=== PATIENT | female | born 1950 | race Caucasian/White ===

== ENCOUNTER 2017-10-03 06:33 | Day surgery (SDC) | payer MEDICARE, OTHER ==
[~2017-10-03] VITALS: Ht 139.7 cm; Wt 44.3 kg
[2017-10-03] VITALS (10 sets, daily range): BP systolic 93–132; BP diastolic 36–72
[~2017-10-03 06:33] MED LIST: ALPR1TAB7 PO; ASPI-808 PO; BENZ-13 PO; BUDE90AE2 IH; CEFD300C3 PO; METH4TAB PO; METO50TA2 PO; MORP-33 PO
--- OUTSIDE RECORDS SUMMARY | 2017-10-03 06:37 | XMS REPORT | Continuity of Care Document ---
Author Author [facility] Organization [facility] Address Unknown Phone Unavailable Allergies Active Description Code Type Severity Reaction Onset Reported/Identified Relationship to Patient Clinical Status Yes acetaminophen [id number] Drug Allergy Unknown N/A 01/16/2016 Medications Problems Date Dx Coded Attending Type Code Diagnosis Diagnosed By 01/16/2016 KEVON FIERRO DO Ot F17.210 NICOTINE DEPENDENCE, CIGARETTES, UNCOMPL 01/16/2016 KEVON FIERRO DO Ot J44.0 CHRONIC OBSTRUCTIVE PULMON DISEASE W ACU 01/16/2016 KEVON FIERRO DO Ot R19.7 DIARRHEA, UNSPECIFIED 05/21/2016 BALJINDER THAYER SINDY Ot F17.210 NICOTINE DEPENDENCE, CIGARETTES, UNCOMPL 05/21/2016 GALE DO SINDY Ot I10 ESSENTIAL (PRIMARY) HYPERTENSION 05/21/2016 BALJINDER THAYER SINDY Ot I25.10 ATHSCL HEART DISEASE OF [place] CORONARY 05/21/2016 BALJINDER THAYER SINDY Ot I25.2 OLD MYOCARDIAL INFARCTION 05/21/2016 BALJINDER THAYER SINDY Ot J44.9 CHRONIC OBSTRUCTIVE PULMONARY DISEASE, U 05/21/2016 BALJINDER THAYER SINDY Ot T40.601A POISONING BY UNSP NARCOTICS, ACCIDENTAL, 05/21/2016 BALJINDER THAYER SINDY Ot Z95.5 PRESENCE OF CORONARY ANGIOPLASTY IMPLANT 05/21/2016 BALJINDER THAYER SINDY Ot F17.210 NICOTINE DEPENDENCE, CIGARETTES, UNCOMPL 05/21/2016 GALE DO SINDY Ot I10 ESSENTIAL (PRIMARY) HYPERTENSION 05/21/2016 BALJINDER THAYER SINDY Ot I25.10 ATHSCL HEART DISEASE OF [place] CORONARY 05/21/2016 BALJINDER THAYER SINDY Ot I25.2 OLD MYOCARDIAL INFARCTION 05/21/2016 BALJINDER THAYER SINDY Ot J44.9 CHRONIC OBSTRUCTIVE PULMONARY DISEASE, U 05/21/2016 BALJINDER THAYER SINDY Ot T40.601A POISONING BY UNSP NARCOTICS, ACCIDENTAL, 05/21/2016 SINDY GALE DO Ot Z95.5 PRESENCE OF CORONARY ANGIOPLASTY IMPLANT Procedures Results Encounters ACCT No. Visit Date/Time Discharge Status Pt. Type Provider Facility Loc./Unit Complaint [id number] 09/16/2017 12:24:00 2016 23:59:59 CLS Preadmit Aimee LEWIS MD [facility] CARD I25.10 CAD [id number] 09/16/2017 12:21:00 2016 23:59:59 CLS Preadmit Aimee LEWIS MD [facility] CARD E78.5 HYPERLIPIDEMIA [id number] 05/20/2016 16:02:00 2015 13:25:00 DIS Inpatient SINDY GALE DO [facility] ICU ACUTE NARCOTIC OVERDOSE [id number] 01/16/2016 13:12:00 2015 14:34:00 DIS Emergency KEVON FIERRO DO [facility] ER COUGH DIARRHEA [id number] 10/03/2017 06:33:00 ACT Outpatient Aimee LEWIS MD [facility] CATH SEVERE LIFESTYLE LIMITED CLAUDICATION, ABN SAHRA.
[2017-10-03] MEDS ORDERED: HEParin (CATH LAB) 2,000 ML IV ONE (06:42)
[2017-10-03] MEDS ORDERED: NS IV 1000 ML 1,000 ML IV SCH ×2 (07:00→11:08)
[2017-10-03 07:14] LABS: MEAN PLATELET VOLUME 9.7 FL (7.4-10.4); RED BLOOD COUNT 5.01 10^6/uL (4.35-5.85); RED CELL DISTRIBUTION WIDTH 13.8 % (10.0-14.5); WHITE BLOOD COUNT 8.8 10^3/uL (4.3-11.0)
[2017-10-03 07:25] LABS: INR 0.9 (0.8-1.4); PROTHROMBIN TIME PATIENT 11.9 SEC (12.2-14.7)
[2017-10-03 07:34] LABS: ALANINE AMINOTRANSFERASE 15 U/L (0-55); ALBUMIN 4.1 GM/DL (3.2-4.5); ANION GAP 12 MMOL/L (5-14); ASPARTATE AMINO TRANSFERASE 16 U/L (5-34); BILIRUBIN,TOTAL 0.3 MG/DL (0.1-1.0); BLOOD UREA NITROGEN 8 MG/DL (7-18); BUN/CREATININE RATIO 11; CALCIUM 9.1 MG/DL (8.5-10.1); CARBON DIOXIDE 29 MMOL/L (21-32); CHLORIDE 97 MMOL/L (98-107); CREATININE SERUM 0.74 MG/DL (0.60-1.30); GFR ESTIMATED > 60; GLUCOSE 92 MG/DL (70-105); POTASSIUM 3.6 MMOL/L (3.6-5.0); SODIUM 138 MMOL/L (135-145); TOTAL PROTEIN 7.4 GM/DL (6.4-8.2)
[2017-10-03] MEDS ORDERED: ATOR40TA70 PO (07:36)
[2017-10-03] MEDS ORDERED: PARO-49 PO (07:36)
[2017-10-03] MEDS ORDERED: OMEG1CAP58 PO (07:36)
[2017-10-03] MEDS ORDERED: CHOL10003 PO (07:36)
[2017-10-03] MEDS ORDERED: DIPH1TAB PO (07:36)
[2017-10-03] MEDS ORDERED: CLOP75TA28 PO (07:36)
[2017-10-03] MEDS ORDERED: ALPR1TAB7 PO (07:36)
[2017-10-03] MEDS ORDERED: MORP-33 PO (07:36)
[2017-10-03] MEDS ORDERED: RT-ALBUINH IH (07:36)
[2017-10-03] MEDS ORDERED: GABA600T2 PO (07:36)
[2017-10-03] MEDS ORDERED: LISI-552 PO (07:36)
[2017-10-03] MEDS ORDERED: MULT-1042 PO (07:36)
[2017-10-03] MEDS ORDERED: fentaNYL INJECTION 100 MCG/2 ML AMP ONE (07:54)
[2017-10-03] MEDS ORDERED: MIDAZOLAM 2 MG/2 ML (VERSED) VIAL ONE (07:55)
--- NOTE | 2017-10-03 11:06 | Cardiac Procedure Note-CS/ASA ---
Pre-Procedure Note Pre-Op Procedure Note H&P Reviewed The H&P was reviewed, patient examined and no changes noted. Date H&P Reviewed: Oct 03, 2017 Time H&P Reviewed: 10:00 Conscious Sedation Pre-Proced Time Reviewed: 10:00 ASA Class: 3 Airway Mallampati Classification: ([place] appropriate class) I. II. III, IV Lungs Heart ASA score ASA 1: a normal healthy patient ASA 2: a patient with a mild systemic disease (mid diabetes, controlled hypertension, obesity ASA 3: a patient with a severe systemic disease that limits activity (angina , COPD, prior Myocardial infarction) ASA 4: a patient with an incapacitating disease that is a constant threat to life (CHF, renal failure) ASA 5: a moribund patient not expected to survive 24 hrs. (ruptured aneurysm) ASA 6: a declared brain patient whose organs are being harvested. For emergent operations, add the letter E after the classification Grade 1 Sedation Plan: Analgesia, Amnesia, Plan communicated to team members, Discussed options with patient/fam, Discussed risks with patient/fam Note The patient is an appropriate candidate to undergo the planned procedure, sedation, and anesthesia. The patient immediately re-assessed prior to indication. Aimee LEWIS MD Oct 03, 2017 11:06 am
--- NOTE | 2017-10-03 11:08 | Cardiology Post Procedure Note ---
Post-Procedure Note Physician (s)/Railroad Baggage Porter (s) Physician Aimee LEWIS MD Pre-Procedure Diagnosis Pre-Procedure Diagnosis: severe lifestyle limiting claudication, L>R Post-Procedure Note Procedure Start Date: Oct 03, 2017 Procedure Start Time: 10:00 Name of Procedure: distal abdominal aortogram and bilateral lower extremity runoff Findings/Procedure Note mild to moderate diffuse disease in the distal abdominal aorta and common/ external illiac arteries. No focal severe stenosis in STRADDLE TRUCK OPERATOR, SFA, Popliteal and three vessel run off bilaterally. Anesthesia Type: Conscious Sedation Estimated blood loss (mL): 10 Contrast Amount: 50 Post-Procedure Diagnosis Post-operative diagnosis: mild to moderate PAD. Aimee LEWIS MD Oct 03, 2017 11:08 am
--- NOTE | 2017-10-03 11:11 | Discharge Inst-Post CATH ---
Discharge Inst-CATH Post Cardiac Cath D/C Inst Follow Up/Plan Dr. Brooke in one month CARDIAC CATH DISCHARGE INSTRUCTIONS *Hold Metformin for 48 hours post heart cath. ACTIVITY * Go Home directly and rest. * Limit activity of the leg (or wrist if it was used) for 7 days including aerobics, swimming, jogging, bicycling, etc. * Restrict stair-climbing for 7 days if possible, if not, climb up with your non -cath leg, then bring together on the same step. * Avoid lifting, pushing, pulling or excessive movement of the affected extremity for 7 days. * Customary sexual activity may be resumed after 2 days-use caution not to use a position that strains or causes pain to the affected extremity. * No driving for 24 hours. * NO SMOKING. * Avoid straining for bowel movements for 7 days. * Gentle walking on level ground is allowed. * Returning to work will depend on the type of procedure and the results. Your doctor will discuss this with you. CALL YOUR DOCTOR FOR ANY OF THE FOLLOWING: *If bleeding from the puncture site occurs- Apply gentle pressure to site with clean cloth and call your doctor or EMS. * If a knot or lump forms under the skin, increases in size, or causes pain. * If bruising appears to be worsening or moving further down your leg instead of disappearing. * Temperature above 101 F. CARE OF YOUR GROIN INCISION; * Bruising or purple discoloration of the skin near the puncture site is common. * You may shower only, no bathtub bathing for 5 days. Be careful to avoid slipping as your leg may feel stiff. * If a closure device was used on your femoral artery, please see the attached guide regarding care of the device and your leg. * REMOVE the dressing from your groin the next day after your procedure in the shower. CARE OF YOUR WRIST INCISION; * Bruising or purple discoloration of the skin near the puncture site is common. * You may shower. * DO NOT submerge wrist. * Remove dressing in 24 hours. Aimee BROOKE MD Oct 03, 2017 11:11 am
--- NOTE | 2017-10-03 11:14 | Cardiology Discharge Summary ---
Diagnosis/Chief Complaint Date of Admission 10/03/2017 Date of Discharge 10/03/2017 Admission Diagnosis severe lifestyle limiting claudication Final/Discharge Diagnosis mild to moderate PAD Chief Complaint/HPI Chief Complaint/HPI this is a 67-year-old lady with history of CAD and active smoking. She presents with severe lifestyle limiting claudication which is worse in the left lower extremity. Noninvasive testing was nondiagnostic or borderline. Peripheral angiography was recommended. Discharge Summary Procedures distal abdominal aortogram with bilateral lower extremity runoff which shows mild to moderate distal abdominal aortic disease and mild diffuse disease bilaterally in the common iliac artery and external iliac artery. However there is no focal stenosis. No significant disease in the bilateral BODY BUMPER, SFA, popliteal artery. Three-vessel runoff bilaterally infrapopliteal. Discharge Physical Examination stable Hospital Course Pending Labs Laboratory Tests 10/03/17 07:09: White Blood Count 8.8, Red Blood Count 5.01, Hemoglobin 16.1, Hematocrit 48, Mean Corpuscular Volume 95, Mean Corpuscular Hemoglobin 32, Mean Corpuscular Hemoglobin Concent 34, Red Cell Distribution Width 13.8, Platelet Count 209, Mean Platelet Volume 9.7, Prothrombin Time 11.9, INR Comment 0.9, Activated Partial Thromboplast Time 27, Sodium Level 138, Potassium Level 3.6, Chloride Level 97, Carbon Dioxide Level 29, Anion Gap 12, Blood Urea Nitrogen 8, Creatinine 0.74, Estimat Glomerular Filtration Rate > 60, BUN/Creatinine Ratio 11, Glucose Level 92, Calcium Level 9.1, Total Bilirubin 0.3, Aspartate Amino Transf (AST/SGOT) 16, Alanine Aminotransferase (ALT/SGPT) 15, Alkaline Phosphatase 82, Total Protein 7.4, Albumin 4.1 Discussion & Recommendations Discussion patient will continue aspirin, Plavix, statin, lisinopril, beta lexy for CAD and mild to moderate PAD. She will follow-up in the office in one month. Follow up appt.: Dr. Brooke in one month. Dicharge Diet: Cardiac Diet Activity as Tolerated: Yes Home Medications Reviewed patient Home Medication Reconciliation Form Discharge Home Medications: Reviewed and agree with Discharge Medication list on patient's Discharge Instruction sheet Condition at discharge stable Instructions to patient/family Dr. Brooke in one month Aimee BROOKE MD Oct 03, 2017 11:14 am
[2017-10-03] MEDS ORDERED: PATIENT MAY USE OWN MEDS, ALL PO SCH (11:15)
--- NOTE | 2017-10-03 16:02 | OPERATIVE REPORT ---
DATE OF SERVICE: 10/03/2017 PERIPHERAL ANGIOGRAM PRIMARY PHYSICIAN: Dr. Olsen. PERFORMING PHYSICIAN: Dr. Luis Lewis. INDICATIONS: Severe lifestyle-limiting claudication. PREOPERATIVE DIAGNOSIS: Severe lifestyle-limiting claudication, left lower extremity worse than right lower extremity. POSTOPERATIVE DIAGNOSIS: Mild to moderate peripheral arterial disease. HISTORY: The patient is a 67-year-old lady with history of significant coronary artery disease with numerous PCI in the past. She also has history of active smoking. She presents with significant pain in the left thigh area as well as left lower extremity, which is significantly worse with exertion. Her claudication is significantly incapacitating. She is on optimal medical therapy with aspirin, Plavix, lisinopril, beta-lexy and statin. Noninvasive imaging was either nondiagnostic or borderline abnormal. Peripheral angiography was recommended. PROCEDURE PERFORMED: 1. Selective angiography of the right lower extremity. 2. Distal abdominal aortogram with bilateral lower extremity runoff. COMPLICATIONS: None. SPECIMENS: None. ESTIMATED BLOOD LOSS: 10 mL. ANTICOAGULATION: None. ANESTHESIA: Conscious sedation. CONTRAST: 50 mL of Omnipaque. FLUOROSCOPY TIME: 49 seconds. FLUOROSCOPY DOSE: 22 mGy. PROCEDURE DETAILS: The patient was brought to the laborer marine terminal after informed consent was taken. All the risks and complications were explained in detail. She was draped and prepped in the usual sterile fashion. Access was gained in the right femoral artery with a 6-Serbian sheath. Using the sheath, we performed selective angiogram and runoff of the right lower extremity. We then took a regular pigtail catheter and advanced it on top of a regular J-wire. The tip of the pigtail catheter was placed in the distal abdominal aorta and a distal abdominal aortogram was performed with bilateral lower extremity runoff. ABDOMINAL AORTOGRAM: Mild to moderate diffuse disease in the distal abdominal aorta is noted. There is mild aneurysmal disease noted at the most distal portion of the distal abdominal aorta. RIGHT LOWER EXTREMITY: Mild diffuse disease is noted in the right common iliac artery and the external iliac artery. Mild to moderate disease is noted in the right internal iliac artery. No significant disease is noted in the right common femoral artery, superficial femoral artery, popliteal artery, 3-vessel runoff is noted in the right below the knee on the right lower extremity. There is mild to moderate disease of the ostium of the right anterior tibial artery. There is mild disease in the right tibioperoneal trunk. There is also mild diffuse disease in the right posterior tibial artery. However, there is no focal flow limiting stenosis noted. LEFT LOWER EXTREMITY: There is mild to moderate disease in the left common iliac artery and external iliac artery. No significant disease is noted in the left common femoral artery, superficial femoral artery, popliteal artery. 3-vessel runoff is noted in the left lower extremity below the knee with no focal stenosis. IMPRESSION AND CONCLUSION: 1. Mild to moderate peripheral arterial disease. Continue medical therapy with aspirin, Plavix and statin. 2. Smoking cessation is strongly recommended. 3. Continue clinical followup. Job ID: [id number] DocumentID: [id number] Dictated Date: 10/03/2017 11:45:04 Senior Hr Business Partner Date: 10/03/2017 16:01:19 Dictated By: LUCA LEWIS MD MTDD
== END 2017-10-03 15:00 | disposition home or self-care (01) ==
LOC: CATH 06:33 → SURG 11:15 → CATH 15:00
PROVIDERS: ATTEND Internal Medicine Interventional Cardiology
DX: I70.213 Atherosclerosis of native arteries of extremities with intermittent claudication, bilateral legs (principal); I25.10 Atherosclerotic heart disease of native coronary artery without angina pectoris; I10 Essential (primary) hypertension; E78.5 Hyperlipidemia, unspecified; R06.02 Shortness of breath; F17.290 Nicotine dependence, other tobacco product, uncomplicated; I25.2 Old myocardial infarction; Z95.5 Presence of coronary angioplasty implant and graft; Z79.82 Long term (current) use of aspirin; Z79.899 Other long term (current) drug therapy
CPT/HCPCS: 36415; 75630; 80053; 85027; 85610; 85730; 87081

== ENCOUNTER → 2017-11-13 | Outpatient (CLI) | payer MEDICARE, OTHER ==
[~2017-11-13] MED LIST changes: +ATOR40TA70 PO; +CHOL10003 PO; +CLOP75TA28 PO; +DIPH1TAB PO; +GABA600T2 PO; +LISI-552 PO; +METO50TA15 PO; -METO50TA2 PO; +MULT-1042 PO; +OMEG1CAP58 PO; +PARO-49 PO; +RT-ALBUINH IH
== END ==
LOC: CARD 09:49
PROVIDERS: ATTEND Internal Medicine Interventional Cardiology
DX: I25.10 Atherosclerotic heart disease of native coronary artery without angina pectoris (principal); I10 Essential (primary) hypertension; E78.5 Hyperlipidemia, unspecified; R06.02 Shortness of breath; F17.200 Nicotine dependence, unspecified, uncomplicated
CPT/HCPCS: 93306

== ENCOUNTER → 2017-11-14 | Outpatient (CLI) | payer MEDICARE, OTHER ==
[~2017-11-14] MED LIST changes: +CATHETER FLUSH 10 ML SYR IV PRN; +REGADENOSON 0.4 MG/5 ML SYR (LEXISCAN) IV ONE
[2017-11-14 09:48] VITALS: BP 160/94
--- NOTE | 2017-11-14 21:53 | STRESS TEST ---
DATE OF SERVICE: 11/14/2017 PHARMACOLOGICAL NUCLEAR STRESS TEST REFERRING PHYSICIAN: Dr. Sebastian Olsen. PERFORMING PHYSICIAN: Dr. Luis Lewis. INDICATION: Previous history of CAD and PCI. He presents with shortness of breath. PROCEDURE DETAILS: The patient was brought to the stress lab after informed consent was taken. All the risks and complications were explained in detail. Lexiscan nuclear stress test was performed according to the protocol. 0.4 mg of IV Lexiscan was given. Low grade exercise was done. Resting EKG showed sinus rhythm at heart rate 75 BPM. Maximum heart rate was 94 BPM. Resting blood pressure was 128/99 mmHg. Maximum blood pressure was 160/100 mmHg. There was no chest pain during the procedure. There were no arrhythmias or ST-T wave abnormalities. 10.85 mCi of Myoview were given for rest imaging and 31.3 mCi of Myoview were given for stress imaging. Ejection fraction 48%. TID 1.13. SSS 28, SRS 21, SDS 4. There is a severe large apical fixed defect with reversible defect in the anterior septal area. CONCLUSION: 1. Pharmacological stress test negative for ischemia. 2. Mildly reduced LV systolic function with no wall motion abnormalities. 3. Elevated TID. 4. 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 Thallium viability is recommended. Job ID: [id number] DocumentID: [id number] Dictated Date: 11/14/2017 15:00:35 Window Installation Subcontractor Date: 11/14/2017 17:34:57 Dictated By: LUCA LEWIS MD MTDD
== END ==
LOC: CARD 07:45
PROVIDERS: ATTEND Internal Medicine Interventional Cardiology
DX: I25.10 Atherosclerotic heart disease of native coronary artery without angina pectoris (principal); I73.9 Peripheral vascular disease, unspecified; E78.5 Hyperlipidemia, unspecified; I10 Essential (primary) hypertension; F17.200 Nicotine dependence, unspecified, uncomplicated; R06.02 Shortness of breath
CPT/HCPCS: 78452; 93017

== ENCOUNTER → 2017-11-18 | Outpatient (CLI) | payer MEDICARE ==
[~2017-11-18] MED LIST changes: -REGADENOSON 0.4 MG/5 ML SYR (LEXISCAN) IV ONE
--- NOTE | 2017-11-19 20:50 | STRESS TEST ---
DATE OF SERVICE: 11/18/2017 THALLIUM VIABILITY REPORT PRIMARY PHYSICIAN: Sebastian Olsen MD ATTENDING PHYSICIAN: Trent Lewis MD DIAGNOSES: Coronary artery disease, previous infarct and percutaneous coronary intervention. HISTORY: The patient is a 67-year-old lady with previous history of ID and PCI. Pharmacological nuclear stress test was performed for shortness of breath, which showed evidence of a fixed apical defect suggesting an old infarct as well as mid anterior septal reversible defect suggesting solo-infarct ischemia. Thallium viability study was recommended to look for viability in the apical territory. PROCEDURE DETAILS: A 3.03 mCi of thallium-201 was given for resting scan. The patient was scanned after initial injection of thallium as well as 4 hours later. The patient was brought back 24 hours later and 1.03 mCi of thallium-201 was given and another imaging performed. Review of the imaging in short axis, vertical long axis and horizontal long axis shows no significant thallium uptake at 4 hours or 24 hours. This suggests no significant apical viability. Normal viability in the anterior, inferior, lateral and septal frank. CONCLUSION: 1. No significant viability in the apical wall. 2. Viability is noted in the septum, anterior, inferior and lateral frank. Job ID: [id number] DocumentID: [id number] Dictated Date: 11/19/2017 12:32:06 Lay Midwife Date: 11/19/2017 14:04:22 Dictated By: TRENT LEWIS MD
== END ==
LOC: CARD 08:41
PROVIDERS: ATTEND Internal Medicine Interventional Cardiology
DX: I25.10 Atherosclerotic heart disease of native coronary artery without angina pectoris (principal); R94.39 Abnormal result of other cardiovascular function study; R93.1 Abnormal findings on diagnostic imaging of heart and coronary circulation; I25.2 Old myocardial infarction
CPT/HCPCS: 78452; 93017

== ENCOUNTER → 2017-11-19 | Outpatient (CLI) | payer MEDICARE ==
[~2017-11-19] MED LIST changes: +ACET-2267 PO; +ALBU18HF2 INH; +ASPI325T32 PO; -CATHETER FLUSH 10 ML SYR IV PRN; +LOPE2TAB34 PO; +MULT-1029 PO; +NITR0.4T39 SL; +SIME125T49 PO
== END ==
LOC: CARD 09:07
PROVIDERS: ATTEND Internal Medicine Interventional Cardiology
DX: I25.10 Atherosclerotic heart disease of native coronary artery without angina pectoris (principal); I25.2 Old myocardial infarction; R93.1 Abnormal findings on diagnostic imaging of heart and coronary circulation; R94.39 Abnormal result of other cardiovascular function study

== ENCOUNTER 2017-11-21 09:06 | Day surgery (SDC) | payer MEDICARE ==
[2017-11-21] VITALS (7 sets, daily range): BP systolic 102–136; BP diastolic 57–89
[~2017-11-21] VITALS: Ht 144.8 cm; Wt 44.5 kg
[~2017-11-21 09:06] MED LIST changes: -ACET-2267 PO; -ALBU18HF2 INH; -ASPI325T32 PO; -LOPE2TAB34 PO; -MULT-1029 PO; -NITR0.4T39 SL; -SIME125T49 PO
[2017-11-21] MEDS ORDERED: LIDOCAINE 1% INJ 50 ML (XYLOCAINE) VIAL ONE (09:12)
[2017-11-21] MEDS ORDERED: HEParin (CATH LAB) 2,000 ML IV ONE (09:13)
[2017-11-21] MEDS ORDERED: NS IV 1000 ML 1,000 ML ONE (09:13)
[2017-11-21] MEDS ORDERED: NS IV 1000 ML 1,000 ML IV SCH ×3 (09:30→15:36)
[2017-11-21 10:03] LABS: MEAN PLATELET VOLUME 9.7 FL (7.4-10.4); RED BLOOD COUNT 4.56 10^6/uL (4.35-5.85); WHITE BLOOD COUNT 7.9 10^3/uL (4.3-11.0)
[2017-11-21 10:20] LABS: INR 0.9 (0.8-1.4); PROTHROMBIN TIME PATIENT 12.6 SEC (12.2-14.7)
[2017-11-21 10:31] LABS: ALANINE AMINOTRANSFERASE 14 U/L (0-55); ALBUMIN 3.7 GM/DL (3.2-4.5); ALKALINE PHOSPHATASE 77 U/L (40-136); BILIRUBIN,TOTAL 0.3 MG/DL (0.1-1.0); BUN/CREATININE RATIO 20; CARBON DIOXIDE 29 MMOL/L (21-32); CHLORIDE 102 MMOL/L (98-107); CHOLESTEROL 140 MG/DL (< 200); CREATININE SERUM 0.75 MG/DL (0.60-1.30); GFR ESTIMATED > 60; GLUCOSE 87 MG/DL (70-105); HDL CHOLESTEROL 64 MG/DL (40-60); POTASSIUM 4.4 MMOL/L (3.6-5.0); SODIUM 142 MMOL/L (135-145); TOTAL PROTEIN 6.8 GM/DL (6.4-8.2); TRIGLYCERIDES 53 MG/DL (<150); VLDL CHOLESTEROL 11 MG/DL (5-40)
[2017-11-21] MEDS ORDERED: LOPE2TAB34 PO (10:39)
[2017-11-21] MEDS ORDERED: SIME125T49 PO (10:39)
[2017-11-21] MEDS ORDERED: ALBU18HF2 INH (10:39)
[2017-11-21] MEDS ORDERED: MULT-1029 PO (10:39)
[2017-11-21] MEDS ORDERED: ASPI325T32 PO (10:39)
[2017-11-21] MEDS ORDERED: ACET-2267 PO (10:39)
[2017-11-21] MEDS ORDERED: NITR0.4T39 SL (10:39)
--- NOTE | 2017-11-21 11:33 | Cardiac Procedure Note-CS/ASA ---
Pre-Procedure Note Pre-Op Procedure Note H&P Reviewed The H&P was reviewed, patient examined and no changes noted. Date H&P Reviewed: Nov 21, 2017 Time H&P Reviewed: 11:33 Conscious Sedation Pre-Proced Time Reviewed: 11:33 ASA Class: 3 Airway Mallampati Classification: ([place] appropriate class) I. II. III, IV Lungs Heart ASA score ASA 1: a normal healthy patient ASA 2: a patient with a mild systemic disease (mid diabetes, controlled hypertension, obesity ASA 3: a patient with a severe systemic disease that limits activity (angina , COPD, prior Myocardial infarction) ASA 4: a patient with an incapacitating disease that is a constant threat to life (CHF, renal failure) ASA 5: a moribund patient not expected to survive 24 hrs. (ruptured aneurysm) ASA 6: a declared brain patient whose organs are being harvested. For emergent operations, add the letter E after the classification Grade 1 Sedation Plan: Analgesia, Amnesia, Plan communicated to team members, Discussed options with patient/fam, Discussed risks with patient/fam Note The patient is an appropriate candidate to undergo the planned procedure, sedation, and anesthesia. The patient immediately re-assessed prior to indication. Aimee LEWIS MD Nov 21, 2017 11:33 am
[2017-11-21] MEDS ORDERED: MIDAZOLAM 5 MG/5 ML (VERSED) VIAL ONE (13:09)
[2017-11-21] MEDS ORDERED: fentaNYL INJECTION 100 MCG/2 ML AMP ONE (13:09)
[2017-11-21] MEDS ORDERED: HEParin 1000 UNIT/ML (10ML VIAL) FOR BOLUS ONE (13:10)
[2017-11-21] MEDS ORDERED: NITROGLYCERIN DRIP 25 MG/D5W 250 ML IV ONE (13:11)
[2017-11-21] MEDS ORDERED: VERAPAMIL 5 MG/2 ML (CALAN) VIAL IV ONE (13:11)
[2017-11-21] MEDS ORDERED: ADENOSINE 3 MG/1 ML (ADENOSCAN) 30ML VIAL IV ONE (14:31)
--- NOTE | 2017-11-21 15:36 | Cardiology Post Procedure Note ---
Post-Procedure Note Physician (s)/Marquetry Worker (s) Physician Aimee LEWIS MD Pre-Procedure Diagnosis Pre-Procedure Diagnosis: Shortness of breath, abnormal nuclear stress test Post-Procedure Note Procedure Start Date: Nov 21, 2017 Procedure Start Time: 14:00 Name of Procedure: Coronary angiography, left heart catheterization, FFR to the RCA, unsuccessful PCI attempt of the LAD Findings/Procedure Note moderate diffuse disease in the RCA. Negative FFR. Patent stent in the LAD. A stent in the mid left circumflex artery has diffuse in-stent restenosis. This is followed by moderate to severe diffuse disease. There is another stent in the distal left circumflex artery which is totally occluded with reconstitution in the second OM artery. LV EF around 45-50 percent with apical hypokinesis. LVEDP 20 mmHg. Anesthesia Type: Conscious Sedation Estimated blood loss (mL): 30 Contrast Amount: 187 Post-Procedure Diagnosis Post-operative diagnosis: Totally occluded left circumflex artery stent, unsuccessful PCI. Moderate diffuse disease in the RCA with negative FFR. Aimee LEWIS MD Nov 21, 2017 3:36 pm
[2017-11-21] MEDS ORDERED: PATIENT MAY USE OWN MEDS, ALL PO SCH (15:45)
--- NOTE | 2017-11-21 15:52 | Discharge Inst-Post CATH ---
Discharge Inst-CATH Post Cardiac Cath D/C Inst Follow Up/Plan Dr. Brooke in one to 2 weeks CARDIAC CATH DISCHARGE INSTRUCTIONS *Hold Metformin for 48 hours post heart cath. ACTIVITY * Go Home directly and rest. * Limit activity of the leg (or wrist if it was used) for 7 days including aerobics, swimming, jogging, bicycling, etc. * Restrict stair-climbing for 7 days if possible, if not, climb up with your non -cath leg, then bring together on the same step. * Avoid lifting, pushing, pulling or excessive movement of the affected extremity for 7 days. * Customary sexual activity may be resumed after 2 days-use caution not to use a position that strains or causes pain to the affected extremity. * No driving for 24 hours. * NO SMOKING. * Avoid straining for bowel movements for 7 days. * Gentle walking on level ground is allowed. * Returning to work will depend on the type of procedure and the results. Your doctor will discuss this with you. CALL YOUR DOCTOR FOR ANY OF THE FOLLOWING: *If bleeding from the puncture site occurs- Apply gentle pressure to site with clean cloth and call your doctor or EMS. * If a knot or lump forms under the skin, increases in size, or causes pain. * If bruising appears to be worsening or moving further down your leg instead of disappearing. * Temperature above 101 F. CARE OF YOUR GROIN INCISION; * Bruising or purple discoloration of the skin near the puncture site is common. * You may shower only, no bathtub bathing for 5 days. Be careful to avoid slipping as your leg may feel stiff. * If a closure device was used on your femoral artery, please see the attached guide regarding care of the device and your leg. * REMOVE the dressing from your groin the next day after your procedure in the shower. CARE OF YOUR WRIST INCISION; * Bruising or purple discoloration of the skin near the puncture site is common. * You may shower. * DO NOT submerge wrist. * Remove dressing in 24 hours. Aimee BROOKE MD Nov 21, 2017 3:51 pm
--- NOTE | 2017-11-21 15:56 | Cardiology Discharge Summary ---
Diagnosis/Chief Complaint Date of Admission 11/21/2017 Date of Discharge 11/21/2017 Admission Diagnosis shortness of breath, previous history of CAD, PCI, abnormal nuclear stress test Final/Discharge Diagnosis coronary artery disease, mildly reduce LV systolic function Chief Complaint/HPI Chief Complaint/HPI this is a 67-year-old lady with previous history of myocardial infarction, PCI. She has PCI in the LAD and 2 stents in the left circumflex artery. She presented with shortness of breath. abnormal nuclear stress test. Discharge Summary Procedures coronary angiography showed moderate diffuse disease in the RCA with negative FFR. Patent stent in the LAD with no other significant disease. Occluded stent in the distal left circumflex artery with severe and in-stent restenosis in the mid left circumflex artery stent. Discharge Physical Examination stable Hospital Course unremarkable Pending Labs Laboratory Tests 11/21/17 09:55: White Blood Count 7.9, Red Blood Count 4.56, Hemoglobin 15.0, Hematocrit 45, Mean Corpuscular Volume 98, Mean Corpuscular Hemoglobin 33, Mean Corpuscular Hemoglobin Concent 34, Red Cell Distribution Width 15.0, Platelet Count 277, Mean Platelet Volume 9.7, Prothrombin Time 12.6, INR Comment 0.9, Activated Partial Thromboplast Time 28, Sodium Level 142, Potassium Level 4.4, Chloride Level 102, Carbon Dioxide Level 29, Anion Gap 11, Blood Urea Nitrogen 15, Creatinine 0.75, Estimat Glomerular Filtration Rate > 60, BUN/Creatinine Ratio 20, Glucose Level 87, Calcium Level 9.0, Total Bilirubin 0.3, Aspartate Amino Transf (AST/SGOT) 14, Alanine Aminotransferase (ALT/SGPT) 14, Alkaline Phosphatase 77, Total Protein 6.8, Albumin 3.7, Triglycerides Level 53, Cholesterol Level 140, LDL Cholesterol Direct 56, VLDL Cholesterol 11, HDL Cholesterol 64 Discussion & Recommendations Discussion patient will be discharged on aspirin, Plavix, statin, beta lexy and ESSIE inhibitor. Follow up appt.: With Dr. Brooke in one to 2 weeks Dicharge Diet: Cardiac Diet Activity as Tolerated: Yes Home Medications Reviewed patient Home Medication Reconciliation Form Discharge Home Medications: Reviewed and agree with Discharge Medication list on patient's Discharge Instruction sheet Condition at discharge stable Instructions to patient/family Dr. Brooke in one to 2 weeks Aimee BROOKE MD Nov 21, 2017 3:56 pm
--- NOTE | 2017-11-21 18:32 | CARDIAC CATHETERIZATION ---
DATE OF SERVICE: 11/21/2017 CORONARY ANGIOGRAPHY, FFR AND PCI REPORT INDICATION: Shortness of breath, previous AZ, PCI, abnormal nuclear stress test. PREOPERATIVE DIAGNOSES: 1. Shortness of breath. 2. Abnormal nuclear stress test. 3. Previous history of myocardial infarction and PCI. POSTOPERATIVE DIAGNOSIS: Eqyysrms-cp-mnezrg coronary artery disease. HISTORY: The patient is a 67-year-old lady who has previous history of AZ and PCI in the LAD and left circumflex artery. She presents with shortness of breath. Nuclear stress test was done, which was abnormal. Coronary angiography was recommended. PROCEDURES PERFORMED: 1. Coronary angiography. 2. Left heart catheterization. 3. FFR to the RCA. 4. Unsuccessful PCI to the LAD. COMPLICATIONS: None. SPECIMENS: None. ESTIMATED BLOOD LOSS: 20 mL. ANTICOAGULATION: IV heparin. ANESTHESIA: Conscious sedation. CONTRAST: A 237 mL of Omnipaque. FLUOROSCOPY DOSE: 386 mGy. FLUOROSCOPY TIME: PROCEDURE DETAILS: The patient was brought to the dairy lab technician after informed consent was taken. All the risks and complications were explained in detail. She was draped and prepped in the usual sterile fashion. Access was gained in the right radial artery with a 5-Luxembourger sheath. Coronary angiography and left heart catheterization was performed with a 5-Luxembourger Dash catheter. FINDINGS: 1. Left main: Mild ostial disease. 2. LAD: Mild diffuse disease with a patent stent in the proximal/mid LAD. The LAD is a transapical vessel. 3. Left circumflex artery: There is a first obtuse marginal artery, which is patent. Just after the first obtuse marginal artery in the mid left circumflex artery, there is a stent, which has severe in-stent restenosis. Just distal to the first stent, there is another stent, which is occluded. Distal reconstitution is noted of a second obtuse marginal artery via left to left collaterals. 4. RCA: Moderate diffuse disease in the proximal and mid RCA. In the mid RCA, there is a stenotic segment of 50%. 5. Left heart catheterization: LV pressure 81/10 mmHg. LVEDP 20 mmHg. Aortic pressure 87/54 mmHg. Preserved LV function with an EF of around 45% to 50%. Apical hypokinesis is noted. There is no gradient across the aortic valve. RECOMMENDATIONS: 1. FFR to the RCA is recommended. 2. PCI to the left circumflex artery stent SWITCH REPAIRER is recommended. INTERVENTION DETAILS: We used the same Dash catheter for FFR. An FFR wire was used. IV heparin was given. ACT was over 250 seconds. The lesions were easily crossed with the FFR wire and the wire was placed in the distal RCA. Adenosine was started at 140 mcg per kg per minute for 3 minutes. Baseline FFR was 0.96. Peak FFR was 0.91, which is normal. Therefore, PCI was deferred. The wire was taken out and post-angiogram did not reveal any vascular complication. We then took a Voda catheter, Whisper extra support wire. We were not able to cross the lesion with the wire. Therefore, we took an Emerge 1.5 x 12 balloon, but we were still not able to cross the lesion. Just before that, we actually exchanged the sheath and upsized to a 6-Luxembourger sheath. The Voda catheter was not giving us good support. Therefore, the Voda catheter as well as the wire and balloon were taken out. We then used a CLS 3 guide catheter. We went in again with a ChoICE extra support wire; however, we were still not able to cross the lesion. At this point in time, we decided to stop. The wire was taken out and post-angiogram did not reveal any vascular complication. CONCLUSION: 1. Moderate diffuse disease in the RCA with negative FFR; therefore, PCI deferred. 2. Patent stent in the LAD. 3. Severe disease in the mid left circumflex artery stent and an occluded distal left circumflex artery stent, which we were unsuccessful in crossing; therefore, PCI could not be performed. 4. Continue aspirin, Plavix, ESSIE inhibitor, beta lexy and atorvastatin. 5. If the patient has further symptoms, we may start from a femoral approach in a different setting. Job ID: [id number] DocumentID: [id number] Dictated Date: 11/21/2017 16:21:10 Instrument Maintenance Supervisor Date: 11/21/2017 18:31:35 Dictated By: LUCA LEWIS MD
[2017-11-22] MEDS ORDERED: ASPIRIN E.C. 81 MG (ECOTRIN) TAB PO SCH (09:00)
[2017-11-22] MEDS ORDERED: CLOPIDOGREL 75 MG (PLAVIX) TABLET PO SCH (09:00)
== END 2017-11-21 19:25 | disposition home or self-care (01) ==
LOC: CATH 09:06
PROVIDERS: ATTEND Internal Medicine Interventional Cardiology
DX: I25.10 Atherosclerotic heart disease of native coronary artery without angina pectoris (principal); T82.855A Stenosis of coronary artery stent, initial encounter; I70.213 Atherosclerosis of native arteries of extremities with intermittent claudication, bilateral legs; I27.20 Pulmonary hypertension, unspecified; I08.1 Rheumatic disorders of both mitral and tricuspid valves; I10 Essential (primary) hypertension; E78.5 Hyperlipidemia, unspecified; F17.290 Nicotine dependence, other tobacco product, uncomplicated; I25.2 Old myocardial infarction; Z79.82 Long term (current) use of aspirin; Z79.899 Other long term (current) drug therapy; Z95.5 Presence of coronary angioplasty implant and graft
CPT/HCPCS: 36415; 80053; 80061; 85027; 85610; 85730; 87081; 93458; 93571

== ENCOUNTER 2018-05-25 12:09 | Observation (INO) | payer MEDICARE ==
[~2018-05-25] VITALS: Ht 152.4 cm; Wt 40.4 kg
[~2018-05-25 12:09] MED LIST changes: +ACET-2267 PO; +ALBU18HF2 INH; +ASPI325T32 PO; +LOPE2TAB34 PO; +MULT-1029 PO; +NITR0.4T39 SL; +SIME125T49 PO
[2018-05-25] MEDS ORDERED: LACTATED RINGERS 1,000 ML IV ONE ×3 (13:20→15:34)
[2018-05-25] MEDS ORDERED: PARO20TA5 PO (13:25)
[2018-05-25] MEDS ORDERED: LISI10TA2 PO (13:25)
[2018-05-25] MEDS ORDERED: fentaNYL INJECTION 100 MCG/2 ML AMP IVP ONE (13:30)
[2018-05-25] MEDS ORDERED: ONDANSETRON 4 MG/2 ML (SDV) Z0FRAN IVP ONE (13:30)
--- NOTE | 2018-05-25 13:35 | ED Abdominal Pain ---
General Chief Complaint: Abdominal/GI Problems Stated Complaint: NAUSEA,STOMACH PAIN,NOT EATING Nursing Triage Note: PT PRESENTS TO ER WITH COMPLAINT N/V, HEADACHE, GENERALIZED MALAISE, AND FOUL SMELLING URINE X4 DAYS. Sepsis Screen: No Definite Risk Source of Information: Patient, Family (son in law) Exam Limitations: No Limitations History of Present Illness Date Seen by Provider: May 25, 2018 Time Seen by Provider: 13:19 Initial Comments Patient presents to the ER by private conveyance with her son-in-law and a chief complaint that last for 5 days she's been laid up at home with weakness tiredness belly pain and headache. She is a fairly poor historian with a greer positive review of systems. She endorses a headache like her typical headaches as well as epigastric abdominal pain 10 out of 10. She says her urine smells foul does not have dysuria. She's not been eating or drinking much because of the nausea with occasional vomiting and feeling of malaise. She says she has chronic back pain is been bothering her for which she uses morphine sulfate 15 mg twice a day. She has a history of heart stents and she says she started having chest pain about 2-3 days ago under her left breast that does not radiate. She says she's been having some chills but no sweats or fever. She has not seen anybody about this for the past several days. She smokes about half pack per day. She's not having any wheezing or shortness of breath. She has a history of hysterectomy and she says she had a colonoscopy more than 10 years ago but does not recall there being any concerns at that time. Last bowel movement was 4-5 days ago when she stopped eating. Allergies and Home Medications Allergies Coded Allergies: acetaminophen (Verified Allergy, Unknown, 01/16/16) Home Medications Acetaminophen 500 Mg Tablet, 1,000 MG PO Q4H PRN for PAIN-MILD, (Reported) Albuterol Sulfate 18 Gm Hfa.aer.ad, 2 PUFF INH Q4H PRN for SHORTNESS OF BREATH, (Reported) Alprazolam 1 Mg Tablet, 1 MG PO TID PRN for ANXIETY, (Reported) Aspirin 325 Mg Tablet.dr, 325 MG PO DAILY, (Reported) Atorvastatin Calcium 40 Mg Tablet, 40 MG PO HS, (Reported) Clopidogrel Bisulfate 75 Mg Tablet, 75 MG PO DAILY, (Reported) Gabapentin 600 Mg Tablet, 600 MG PO TID, (Reported) Lisinopril 20 Mg Tablet, 20 MG PO DAILY, (Reported) Loperamide HCl 2 Mg Tablet, PO UD PRN for DIARRHEA, (Reported) Metoprolol Tartrate 50 Mg Tablet, 50 MG PO BID, (Reported) Morphine Sulfate 15 Mg Tablet.er, 15 MG PO Q12H, (Reported) Multivit-Min/FA/Lycopene/Lut 1 Each Tablet, 1 TAB PO HS, (Reported) Nitroglycerin 0.4 Mg Tab.subl, 0.4 MG SL UD PRN for CHEST PAIN, (Reported) [place]-3 Fatty Acids/Fish Oil 1 Each Capsule, 1,000 MG PO HS, (Reported) Paroxetine HCl 20 Mg Tablet, 20 MG PO DAILY, (Reported) Simethicone 125 Mg Tab.chew, 125-250 MG PO ACHS PRN for GAS, (Reported) Patient Home Medication List Home Medication List Reviewed: Yes Review of Systems Constitutional: No chills, No diaphoresis EENTM: No Blurred Vision, No Double Vision; Other (global headache moderate severity) Respiratory: Cough (nonproductive); Denies Shortness of Air, Denies Wheezing Cardiovascular: Chest Pain; Denies Edema, Denies Irregular Heart Rate, Denies Palpitations, Denies Syncope Gastrointestinal: Denies Abdomen Distended; Abdominal Pain (epigastric); Denies Constipated, Denies Diarrhea; Nausea, Poor Appetite, Poor Fluid Intake, Vomiting Genitourinary: Denies Burning, Denies Discharge Musculoskeletal: back pain; No joint pain Skin: No change in color, No pruritus, No rash Psychiatric/Neurological: Denies Headache, Denies Numbness, Denies Paresthesia Past Tpbywuw-Mruhht-Mpjyra Hx Patient Social History Alcohol Use: Denies Use Recreational Drug Use: No Smoking Status: Current Everyday Smoker Type Used: Cigarettes (0.5 ppd) Recent Foreign Travel: No Contact w/Someone Who Travel: No Recent Infectious Disease Expo: No Recent Hopitalizations: No Immunizations Up To Date Tetanus Booster (TDap): Unknown Date of Pneumonia Vaccine: Aug 08, 2016 Date of Influenza Vaccine: Jul 16, 2017 Seasonal Allergies Seasonal Allergies: No Past Medical History Surgeries: Yes Cardiac, Coronary Stent, Hysterectomy Respiratory: Yes Asthma, COPD Cardiac: Yes (STENTS--UNKNOWN NUMBER) Coronary Artery Disease, Heart Attack, Hypertension Neurological: No Gastrointestinal: Yes Colitis, Crohns Disease Musculoskeletal: Yes (RESTLESS LEGS ) Chronic Back Pain Endocrine: No Cancer: Yes Skin, Ovarian Psychosocial: Yes (PANIC ATTACKS) Anxiety, PTSD, Bipolar, Depression Integumentary: Yes ("SKIN CANCER SPOTS") Family Medical History Psychosocial problem G8 SISTER Physical Exam Vital Signs Vital Signs - First Documented 05/25/18 12:53 Temp 99.3 Pulse 76 Resp 17 B/P (MAP) 143/99 (114) Pulse Ox 99 O2 Delivery Room Air Capillary Refill : Less Than 3 Seconds Height/Weight/BMI Height: 5'0" Weight: 90lbs. 0.0oz. 40.296129pw; 21.2 BMI Method:Stated General Appearance: mild distress, thin HEENT: PERRL/EOMI, pharynx normal Neck: non-tender, full range of motion, normal inspection Respiratory: chest non-tender, lungs clear, normal breath sounds, no respiratory distress, no accessory muscle use Cardiovascular: normal peripheral pulses, regular rate, rhythm Peripheral Pulses: 2+ Dorsalis Pedis (R), 2+ Left Dors-Pedis (L), 2+ Radial Pulses (R), 2+ Radial Pulses (L) Gastrointestinal: normal bowel sounds, soft; No guarding, No rebound; tenderness (right lower quadrant and epigastric region.) Extremities: normal range of motion, non-tender, normal inspection, no pedal edema, no calf tenderness, normal capillary refill Back: normal inspection, no CVA tenderness Neurologic/Psychiatric: alert, normal mood/affect, oriented x 3, other (flat affect) Skin: normal color, warm/dry Progress/Results/Core Measures Results/Orders Lab Results Laboratory Tests Test 05/25/18 13:09 Range/Units White Blood Count 9.3 4.3-11.0 10^3/uL Red Blood Count 4.70 4.35-5.85 10^6/uL Hemoglobin 15.8 11.5-16.0 G/DL Hematocrit 43 35-52 % Mean Corpuscular Volume 92 80-99 FL Mean Corpuscular Hemoglobin 34 25-34 PG Mean Corpuscular Hemoglobin Concent 37 H 32-36 G/DL Red Cell Distribution Width 14.3 10.0-14.5 % Platelet Count 188 130-400 10^3/uL Mean Platelet Volume 10.4 7.4-10.4 FL Neutrophils (%) (Auto) 81 H 42-75 % Lymphocytes (%) (Auto) 12 12-44 % Monocytes (%) (Auto) 7 0-12 % Eosinophils (%) (Auto) 0 0-10 % Basophils (%) (Auto) 0 0-10 % Neutrophils # (Auto) 7.5 1.8-7.8 X 10^3 Lymphocytes # (Auto) 1.2 1.0-4.0 X 10^3 Monocytes # (Auto) 0.7 0.0-1.0 X 10^3 Eosinophils # (Auto) 0.0 0.0-0.3 10^3/uL Basophils # (Auto) 0.0 0.0-0.1 10^3/uL Urine Color YELLOW Urine Clarity SLIGHTLY CLOUDY Urine pH 7 5-9 Urine Specific [place] 1.010 L 1.016-1.022 Urine Protein 2+ H NEGATIVE Urine Glucose (UA) NEGATIVE NEGATIVE Urine Ketones 4+ H NEGATIVE Urine Nitrite NEGATIVE NEGATIVE Urine Bilirubin NEGATIVE NEGATIVE Urine Urobilinogen 1 NORMAL MG/DL Urine Leukocyte Esterase 1+ H NEGATIVE Urine RBC (Auto) 3+ H NEGATIVE Urine RBC 0-2 /HPF Urine WBC 2-5 /HPF Urine Squamous Epithelial Cells RARE /HPF Urine Crystals NONE /LPF Urine Bacteria FEW H /HPF Urine Casts NONE /LPF Urine Mucus NEGATIVE /LPF Urine Culture Indicated NO Sodium Level 135 135-145 MMOL/L Potassium Level 2.9 L 3.6-5.0 MMOL/L Chloride Level 96 L 98-107 MMOL/L Carbon Dioxide Level 26 21-32 MMOL/L Anion Gap 13 5-14 MMOL/L Blood Urea Nitrogen 20 H 7-18 MG/DL Creatinine 0.59 L 0.60-1.30 MG/DL Estimat Glomerular Filtration Rate > 60 BUN/Creatinine Ratio 34 Glucose Level 92 70-105 MG/DL Calcium Level 8.8 8.5-10.1 MG/DL Magnesium Level 1.7 L 1.8-2.4 MG/DL Total Bilirubin 0.9 0.1-1.0 MG/DL Aspartate Amino Transf (AST/SGOT) 19 5-34 U/L Alanine Aminotransferase (ALT/SGPT) 13 0-55 U/L Alkaline Phosphatase 75 40-136 U/L Troponin I < 0.30 <0.30 NG/ML C-Reactive Protein High Sensitivity 1.55 H 0.00-0.50 MG/DL Total Protein 6.5 6.4-8.2 GM/DL Albumin 3.9 3.2-4.5 GM/DL Lipase 8 8-78 U/L My Orders Orders - ANA CRISTINA PATEL Ct Abdomen/Pelvis W (05/25/18 13:20) Cbc With Automated Diff (05/25/18 13:20) Comprehensive Metabolic Panel (05/25/18 13:20) Hs C Reactive Protein (05/25/18 13:20) Lipase (05/25/18 13:20) Magnesium (05/25/18 13:20) Troponin I (05/25/18 13:20) Ua Culture If Indicated (05/25/18 13:20) Chest Pa/Lat (2 View) (05/25/18 13:20) Saline Lock/Iv-Start (05/25/18 13:20) Lactated Ringers (Lr 1000 Ml Iv Solution (05/25/18 13:20) Fentanyl Injection (Sublimaze Injection (05/25/18 13:30) Ondansetron Injection (Zofran Injectio (05/25/18 13:30) Lactated Ringers (Lr 1000 Ml Iv Solution (05/25/18 13:28) Iohexol Injection (Omnipaque 350 Mg/Ml 1 (05/25/18 14:00) Sodium Chloride Flush (Catheter Flush Sy (05/25/18 14:00) Ns (Ivpb) (Sodium Chloride 0.9%) (05/25/18 14:00) Pharmacy Communication (Pharmacy Communi (05/25/18 13:56) Potassium Cl 10meq/50ml Ivpb (Kcl 10 Meq (05/25/18 14:15) Magnesium 1 Gm/100 Ml Ivpb (Magnesium Hoffmann (05/25/18 14:15) Medications Given in ED Current Medications Medications Dose Ordered Sig/Anna Route Start Time Stop Time Status Last Admin Dose Admin Fentanyl Citrate 50 mcg ONCE ONCE IVP 05/25/18 13:30 05/25/18 13:31 DC 05/25/18 13:34 50 MCG Iohexol 75 ml ONCE ONCE IV 05/25/18 14:00 05/25/18 14:01 DC 05/25/18 14:19 60 ML Lactated Ringer's 1,000 ml @ 500 mls/hr Q2H ONCE IV 05/25/18 13:20 05/25/18 15:19 05/25/18 13:34 500 MLS/HR Ondansetron HCl 4 mg ONCE ONCE IVP 05/25/18 13:30 05/25/18 13:31 DC 05/25/18 13:35 4 MG Sodium Chloride 10 ml NEEDED PRN IV 05/25/18 14:00 05/25/18 14:19 10 ML Sodium Chloride 250 ml ONCE ONCE IV 05/25/18 14:00 05/25/18 14:01 DC 05/25/18 14:19 80 ML Vital Signs/I&O 05/25/18 12:53 Temp 99.3 Pulse 76 Resp 17 B/P (MAP) 143/99 (114) Pulse Ox 99 O2 Delivery Room Air Blood Pressure Mean: 114 Progress Progress Note : Time: 13:36 Progress Note She has quite a bit of tenderness in her right lower quadrant as well as her epigastric region certain obtain a CT with contrast give her some fentanyl for her 10 out of 10 pain as well as a 500 cc bolus of fluids to start. We'll give her some Zofran should she is endorsing nausea right now. We'll obtain a chest x -ray since she has a cough and some history of emphysema. Basic set of labs and urinalysis. She does seem to have pretty profound depression and this may be a confounder of her current presentation. Cardiac catheterization November [address] Brooke: 1. Moderate diffuse disease in the RCA with negative FFR; therefore, PCI deferred. 2. Patent stent in the LAD. 3. Severe disease in the mid left circumflex artery stent and an occluded distal left circumflex artery stent, which we were unsuccessful in crossing; therefore, PCI could not be performed. 4. Continue aspirin, Plavix, ESSIE inhibitor, beta lexy and atorvastatin. 5. If the patient has further symptoms, we may start from a femoral approach in a different setting. Echocardiogram [address] Brooke: Left ventricle size and wall thickness is normal with an EF of 60%. Grade 1 diastolic dysfunction. Tricuspid valve with moderate to severe regurgitation and mitral valve with moderate regurgitation. Initial ECG Impression Date: May 25, 2018 Initial ECG Impression Time: 13:25 Initial ECG Rate: 68 Initial ECG Rhythm: Normal Sinus Initial ECG Intervals: Normal Initial ECG Impression: Normal, Nonspecific Changes Comment No significant ST elevation or depression but there is a very slight elevation in the ST segment in leads V3 V4 and V5 with inverted T waves in V4 and V5. Diagnostic Imaging Diagonstic Imaging: Xray Plain Films/CT/US/NM/MRI: chest (2v) Comments [facility] [place], [place] NAME: MELANIE SIGALA [facility] REC#: [id number] PT STATUS: REG ER : 1950 PHYSICIAN: ANA CRISTINA PATEL MD ADMIT DATE: 05/25/18/ER Draft Date of Exam:05/25/18 CHEST PA/LAT (2 VIEW) EXAM: PA and lateral chest at 2:40 P.m. INDICATION: Nausea, vomiting, headache. FINDINGS: The heart size is at the upper limits of normal and the heart does seem more prominent than noted on the prior exam of 05/21/2016. The chronic pulmonary changes evident on the prior study are again visualized and no different. There is no sign of failure, pneumonia or of pleural effusion to suggest an acute abnormality. The mediastinum is not widened. The lateral view does show that there is a 30-40% compression deformity of one of the lowermost thoracic vertebra, probably T12. I suspect this injury is long-standing in nature. There is also mild anterior wedging at T6. This too may be chronic in nature. IMPRESSION: 1. There is borderline cardiomegaly and chronic pulmonary disease but there is no acute abnormality identified. 2. The compression deformities at T6 and T12 are most likely long-standing in nature. If there is clinical concern regarding an acute bony abnormality, an MRI would be recommended for additional study. Dictated on workstation # [id number] Dict: 05/25/18 1427 Trans: 05/25/18 [address] [facility] [id number] Interpreted by: DAVID ORTIZ MD Electronically signed by: Reviewed: Reviewed by Me Diagonstic Imaging: CT (with contrast) Plain Films/CT/US/NM/MRI: abdomen, pelvis Comments [facility] [place] NAME: MELANIE SIGALA MED REC#: [id number] PT STATUS: REG ER : 1950 PHYSICIAN: ANA CRISTINA PATEL MD ADMIT DATE: 05/25/18/ER Draft Date of Exam:05/25/18 CT ABDOMEN/PELVIS W PROCEDURE: CT abdomen and pelvis with contrast. TECHNIQUE: Multiple contiguous axial images were obtained through the abdomen and pelvis after administration of intravenous contrast. INDICATION: Dizziness. General malaise. Foul swelling urine. FINDINGS: Lung bases are clear. There is hepatomegaly with hepatic steatosis. There are no focal liver lesions. Gallbladder is not distended. No gallstones are demonstrated. Bile ducts are not dilated. The pancreas and spleen appear normal. The adrenal glands are not enlarged. Kidneys show symmetrical enhancement following IV contrast without evidence of mass, calculi or obstruction. Aorta and abdominal vessels show normal enhancement following IV contrast. There is dense atherosclerotic disease aorta with mild ectasia. No evidence of aneurysm or dissection. The stomach and small bowel are not distended. Colon shows very little stool or gas though there is gas and stool to the rectum. There is very little intra-abdominal fat limiting detail of the peritoneal cavity. The appendix is not identified. Uterus is absent. Bladder is nondistended. Delayed images show normal opacification of the kidneys and ureters. There is opacification of bladder which appears normal. There are no bony lesions demonstrated. No free air or free fluid. IMPRESSION: 1. Hepatomegaly with hepatic steatosis. 2. Atherosclerotic change of the aorta with ectasia. No evidence of aneurysm or dissection. 3. No acute intra-abdominal findings are demonstrated. No distended bowel loops are demonstrated. 4. The kidneys, ureters and bladder appear normal. Dictated on workstation # [id number] Dict: 05/25/18 1421 Trans: 05/25/18 1454 [facility] [id number] Interpreted by: EMBER CHOWDARY MD Electronically signed by: Reviewed: Reviewed by Me Departure Communication (Admissions) Time/Spoke to Admitting Phy: 15:21 Discussed case lab imaging with Dr. Allen she says she would be happy to ice the patient in the hospital for observation for some fluids electrolytes nausea medicine and she would recommend something antacid. Impression Primary Impression: Dehydration Additional Impressions: Abdominal pain Qualified Codes: R10.13 - Epigastric pain Hypokalemia Hypomagnesemia Disposition: ADMITTED INPATIENT Condition: Stable Admissions Decision to Admit Reason: Admit from ER (General) Decision to Admit/Date: May 25, 2018 Time/Decision to Admit Time: 15:29 Departure-Patient Inst. Referrals: CEASAR SNYDER MD (PCP/Family) Primary Care Physician Copy Copies To 1: SKIP ESCOBAR TITUS J May 25, 2018 13:35
[2018-05-25 13:37] LABS: BILIRUBIN,URINE NEGATIVE (NEGATIVE); CLARITY,URINE SLIGHTLY CLOUDY; COLOR,URINE YELLOW; GLUCOSE, URINE (UA) NEGATIVE (NEGATIVE); KETONES,URINE 4+ (NEGATIVE); LEUKOCYTE ESTERASE ,URINE 1+ (NEGATIVE); NITRITE,URINE NEGATIVE (NEGATIVE); PH,URINE 7 (5-9); PROTEIN,URINE 2+ (NEGATIVE); UROBILINOGEN,URINE 1 MG/DL (NORMAL)
[2018-05-25 13:39] LABS: BASOPHILS % (AUTO) 0 % (0-10); EOSINOPHILS % (AUTO) 0 % (0-10); HEMATOCRIT 43 % (35-52); HEMOGLOBIN 15.8 G/DL (11.5-16.0); LYMPHOCYTES # (AUTO) 1.2 X 10^3 (1.0-4.0); LYMPHOCYTES % (AUTO) 12 % (12-44); MEAN CORPUSCULAR HEMOGLOBIN 34 PG (25-34); MEAN CORPUSCULAR HGB CONC 37 G/DL (32-36); MEAN CORPUSCULAR VOLUME 92 FL (80-99); MEAN PLATELET VOLUME 10.4 FL (7.4-10.4); MONOCYTES # (AUTO) 0.7 X 10^3 (0.0-1.0); MONOCYTES % (AUTO) 7 % (0-12); NEUTROPHILS # (AUTO) 7.5 X 10^3 (1.8-7.8); NEUTROPHILS % (AUTO) 81 % (42-75); PLATELET COUNT 188 10^3/uL (130-400); RED CELL DISTRIBUTION WIDTH 14.3 % (10.0-14.5); WHITE BLOOD COUNT 9.3 10^3/uL (4.3-11.0)
[2018-05-25 13:46] LABS: RBC,URINE 0-2 /HPF
[2018-05-25 13:47] LABS: BACTERIA,URINE FEW /HPF; SQUAMOUS EPITHELIAL CELL,UR RARE /HPF
[2018-05-25 13:53] LABS: ALANINE AMINOTRANSFERASE 13 U/L (0-55); ALBUMIN 3.9 GM/DL (3.2-4.5); ALKALINE PHOSPHATASE 75 U/L (40-136); BILIRUBIN,TOTAL 0.9 MG/DL (0.1-1.0); BUN/CREATININE RATIO 34; CALCIUM 8.8 MG/DL (8.5-10.1); CARBON DIOXIDE 26 MMOL/L (21-32); CHLORIDE 96 MMOL/L (98-107); CREATININE SERUM 0.59 MG/DL (0.60-1.30); GFR ESTIMATED > 60; GLUCOSE 92 MG/DL (70-105); LIPASE 8 U/L (8-78); MAGNESIUM 1.7 MG/DL (1.8-2.4); POTASSIUM 2.9 MMOL/L (3.6-5.0); SODIUM 135 MMOL/L (135-145); TOTAL PROTEIN 6.5 GM/DL (6.4-8.2)
[2018-05-25] MEDS ORDERED: CATHETER FLUSH 10 ML SYR IV PRN (14:00)
[2018-05-25] MEDS ORDERED: NS 250 ML (IVPB) BAG IV ONE (14:00)
[2018-05-25] MEDS ORDERED: IOHEXOL 350 MG/ML 100 ML (OMNIPAQUE 350) VIAL IV ONE (14:00)
[2018-05-25] MEDS ORDERED: POTASSIUM CL 10MEQ/50ML IVPB 50 ML IV ONE (14:15)
[2018-05-25] MEDS ORDERED: MAGNESIUM 1 GM/100 ML IVPB 100 ML IV ONE ×2 (14:15→17:43)
--- NOTE | 2018-05-25 14:55 | Diagnostic Imaging Report ---
PROCEDURE: CT abdomen and pelvis with contrast. TECHNIQUE: Multiple contiguous axial images were obtained through the abdomen and pelvis after administration of intravenous contrast. INDICATION: Dizziness. General malaise. Foul swelling urine. FINDINGS: Lung bases are clear. There is hepatomegaly with hepatic steatosis. There are no focal liver lesions. Gallbladder is not distended. No gallstones are demonstrated. Bile ducts are not dilated. The pancreas and spleen appear normal. The adrenal glands are not enlarged. Kidneys show symmetrical enhancement following IV contrast without evidence of mass, calculi or obstruction. Aorta and abdominal vessels show normal enhancement following IV contrast. There is dense atherosclerotic disease aorta with mild ectasia. No evidence of aneurysm or dissection. The stomach and small bowel are not distended. Colon shows very little stool or gas though there is gas and stool to the rectum. There is very little intra-abdominal fat limiting detail of the peritoneal cavity. The appendix is not identified. Uterus is absent. Bladder is nondistended. Delayed images show normal opacification of the kidneys and ureters. There is opacification of bladder which appears normal. There are no bony lesions demonstrated. No free air or free fluid. IMPRESSION: 1. Hepatomegaly with hepatic steatosis. 2. Atherosclerotic change of the aorta with ectasia. No evidence of aneurysm or dissection. 3. No acute intra-abdominal findings are demonstrated. No distended bowel loops are demonstrated. 4. The kidneys, ureters and bladder appear normal. Dictated by: Dictated on workstation # [id number]
--- NOTE | 2018-05-25 15:08 | Diagnostic Imaging Report ---
EXAM: PA and lateral chest at 2:40 P.m. INDICATION: Nausea, vomiting, headache. FINDINGS: The heart size is at the upper limits of normal and the heart does seem more prominent than noted on the prior exam of 05/21/2016. The chronic pulmonary changes evident on the prior study are again visualized and no different. There is no sign of failure, pneumonia or of pleural effusion to suggest an acute abnormality. The mediastinum is not widened. The lateral view does show that there is a 30-40% compression deformity of one of the lowermost thoracic vertebra, probably T12. I suspect this injury is long-standing in nature. There is also mild anterior wedging at T6. This too may be chronic in nature. IMPRESSION: 1. There is borderline cardiomegaly and chronic pulmonary disease but there is no acute abnormality identified. 2. The compression deformities at T6 and T12 are most likely long-standing in nature. If there is clinical concern regarding an acute bony abnormality, an MRI would be recommended for additional study. Dictated by: Dictated on workstation # [id number]
--- OUTSIDE RECORDS SUMMARY | 2018-05-25 15:39 | XMS REPORT | Continuity of Care Document ---
Author Author [facility] Organization [facility] Address Unknown Phone Unavailable Allergies Active Description Code Type Severity Reaction Onset Reported/Identified Relationship to Patient Clinical Status Yes NUTS Moderate N/ A 11/07/2006 Yes celecoxib Drug Allergy Unknown GI UPSET 01/20/2009 Yes acetaminophen [id number] Drug Allergy Unknown N/A 01/16/2016 Medications There is no data. Problems Date Dx Coded Attending Type Code Diagnosis Diagnosed By 01/16/2016 KEVON FIERRO DO Ot F17.210 NICOTINE DEPENDENCE, CIGARETTES, UNCOMPL 01/16/2016 KEVON FIERRO DO Ot J44.0 CHRONIC OBSTRUCTIVE PULMON DISEASE W ACU 01/16/2016 KEVON FIERRO DO Ot R19.7 DIARRHEA, UNSPECIFIED 05/21/2016 SINDY GALE DO Ot F17.210 NICOTINE DEPENDENCE, CIGARETTES, UNCOMPL 05/21/2016 BALJINDER THAYER SINDY Ot I10 ESSENTIAL (PRIMARY) HYPERTENSION 05/21/2016 SINDY GALE DO Ot I25.10 ATHSCL HEART DISEASE OF [place] CORONARY 05/21/2016 BALJINDER THAYER SINDY Ot I25.2 OLD MYOCARDIAL INFARCTION 05/21/2016 SINDY GALE DO Ot J44.9 CHRONIC OBSTRUCTIVE PULMONARY DISEASE, U 05/21/2016 SINDY GALE DO Ot T40.601A POISONING BY UNSP NARCOTICS, ACCIDENTAL, 05/21/2016 SINDY GALE DO Ot Z95.5 PRESENCE OF CORONARY ANGIOPLASTY IMPLANT 05/21/2016 BALJINDER THAYER SINDY Ot F17.210 NICOTINE DEPENDENCE, CIGARETTES, UNCOMPL 05/21/2016 BALJINDER THAYER SINDY Ot I10 ESSENTIAL (PRIMARY) HYPERTENSION 05/21/2016 BALJINDER THAYER SINDY Ot I25.10 ATHSCL HEART DISEASE OF [place] CORONARY 05/21/2016 BALJINDER THAYER SINDY Ot I25.2 OLD MYOCARDIAL INFARCTION 05/21/2016 SINDY GALE DO Ot J44.9 CHRONIC OBSTRUCTIVE PULMONARY DISEASE, U 05/21/2016 SINDY GALE DO Ot T40.601A POISONING BY UNSP NARCOTICS, ACCIDENTAL, 05/21/2016 BALJINDER THAYER SINDY Ot Z95.5 PRESENCE OF CORONARY ANGIOPLASTY IMPLANT 10/03/2017 Aimee LEWIS MD Ot E78.5 HYPERLIPIDEMIA, UNSPECIFIED 10/03/2017 Aimee LEWIS MD Ot F17.290 NICOTINE DEPENDENCE, OTHER TOBACCO PRODU 10/03/2017 Aimee LEWIS MD Ot I10 ESSENTIAL (PRIMARY) HYPERTENSION 10/03/2017 Aimee LEWIS MD Ot I25.10 ATHSCL HEART DISEASE OF [place] CORONARY 10/03/2017 Aimee LEWIS MD Ot I25.2 OLD MYOCARDIAL INFARCTION 10/03/2017 Aimee LEWIS MD Ot I70.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 10/03/2017 Aimee LEWIS MD Ot R06.02 SHORTNESS OF BREATH 10/03/2017 Aimee LEWIS MD Ot Z79.82 MCC (CURRENT) USE OF ASPIRIN 10/03/2017 Aimee LEWIS MD Ot Z79.899 OTHER MCC (CURRENT) DRUG THERAPY 10/03/2017 Aimee LEWIS MD Ot Z95.5 PRESENCE OF CORONARY ANGIOPLASTY IMPLANT 10/09/2017 Aimee LEWIS MD Ot E78.5 HYPERLIPIDEMIA, UNSPECIFIED 10/09/2017 Aimee LEWIS MD Ot F17.290 NICOTINE DEPENDENCE, OTHER TOBACCO PRODU 10/09/2017 Aimee LEWIS MD Ot I10 ESSENTIAL (PRIMARY) HYPERTENSION 10/09/2017 Aimee LEWIS MD Ot I25.10 ATHSCL HEART DISEASE OF [place] CORONARY 10/09/2017 Aimee LEWIS MD Ot I25.2 OLD MYOCARDIAL INFARCTION 10/09/2017 Aimee LEWIS MD Ot I70.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 10/09/2017 Aimee LEWIS MD Ot R06.02 SHORTNESS OF BREATH 10/09/2017 Aimee LEWIS MD Ot 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20 PULMONARY HYPERTENSION, UNSPECIFIED 11/21/2017 Aimee LEWIS MD Ot I70.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 11/21/2017 Aimee LEWIS MD Ot T82.855A STENOSIS OF CORONARY ARTERY STENT, INITI 11/21/2017 Aimee LEWIS MD Ot Z79.82 MCC (CURRENT) USE OF ASPIRIN 11/21/2017 Aimee LEWIS MD Ot Z79.899 OTHER [employer] SALES REPRESENTATIVE (CURRENT) DRUG THERAPY 11/21/2017 Aimee LEWIS MD Ot Z95.5 PRESENCE OF CORONARY ANGIOPLASTY IMPLANT 11/25/2017 Aimee LEWIS MD Ot E78.5 HYPERLIPIDEMIA, UNSPECIFIED 11/25/2017 Aimee LEWIS MD Ot F17.290 NICOTINE DEPENDENCE, OTHER TOBACCO PRODU 11/25/2017 Aimee LEWIS MD Ot 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 11/25/2017 Aimee LEWIS MD Ot I10 ESSENTIAL (PRIMARY) HYPERTENSION 11/25/2017 Aimee LEWIS MD Ot I25.10 ATHSCL HEART DISEASE OF [place] CORONARY 11/25/2017 Aimee LEWIS MD Ot I25.2 OLD MYOCARDIAL INFARCTION 11/25/2017 Aimee LEWIS MD Ot I27.20 PULMONARY HYPERTENSION, UNSPECIFIED 11/25/2017 Aimee LEWIS MD Ot I70.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 11/25/2017 Aimee LEWIS MD Ot T82.855A STENOSIS OF CORONARY ARTERY STENT, INITI 11/25/2017 Aimee LEWIS MD Ot Z79.82 MCC (CURRENT) USE OF ASPIRIN 11/25/2017 Aimee LEWIS MD, Ot Z79.899 OTHER MCC (CURRENT) DRUG THERAPY 11/25/2017 Aimee LEWIS MD Ot Z95.5 PRESENCE OF CORONARY ANGIOPLASTY IMPLANT 11/26/2017 Aimee LEWIS MD Ot E78.5 HYPERLIPIDEMIA, UNSPECIFIED 11/26/2017 Aimee LEWIS MD Ot F17.290 NICOTINE DEPENDENCE, OTHER TOBACCO PRODU 11/26/2017 Aimee LEWIS MD Ot 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 11/26/2017 Aimee LEWIS MD Ot I10 ESSENTIAL (PRIMARY) HYPERTENSION 11/26/2017 Aimee LEWIS MD Ot I25.10 ATHSCL HEART DISEASE OF [place] CORONARY 11/26/2017 Aimee LEWIS MD Ot I25.2 OLD MYOCARDIAL INFARCTION 11/26/2017 Aimee LEWIS MD Ot I27.20 PULMONARY HYPERTENSION, UNSPECIFIED 11/26/2017 Aimee LEWIS MD Ot I70.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 11/26/2017 Aimee LEWIS MD Ot T82.855A STENOSIS OF CORONARY ARTERY STENT, INITI 11/26/2017 Aimee LEWIS MD Ot Z79.82 MCC (CURRENT) USE OF ASPIRIN 11/26/2017 Aimee LEWIS MD Ot Z79.899 OTHER MCC (CURRENT) DRUG THERAPY 11/26/2017 Aimee LEWIS MD Ot Z95.5 PRESENCE OF CORONARY ANGIOPLASTY IMPLANT 12/02/2017 Aimee LEWIS MD Ot E78.5 HYPERLIPIDEMIA, UNSPECIFIED 12/02/2017 Aimee LEWIS MD Ot F17.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, UNSPECIFIED, UNCOMP 12/02/2017 Aimee LEWIS MD Ot I10 ESSENTIAL (PRIMARY) HYPERTENSION 12/02/2017 Aimee LEWIS MD Ot I25.10 ATHSCL HEART DISEASE OF [place] CORONARY 12/02/2017 Aimee LEWIS MD Ot R06.02 SHORTNESS OF BREATH 12/02/2017 Aimee LEWIS MD Ot E78.5 HYPERLIPIDEMIA, UNSPECIFIED 12/02/2017 Aimee LEWIS MD Ot F17.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, UNSPECIFIED, UNCOMP 12/02/2017 Aimee LEWIS MD Ot I10 ESSENTIAL (PRIMARY) HYPERTENSION 12/02/2017 Aimee LEWIS MD Ot I25.10 ATHSCL HEART DISEASE OF [place] CORONARY 12/02/2017 Aimee LEWIS MD Ot I73.9 PERIPHERAL VASCULAR DISEASE, UNSPECIFIED 12/02/2017 Aimee LEWIS MD Ot R06.02 SHORTNESS OF BREATH 12/02/2017 Amiee LEWIS MD Ot I25.10 ATHSCL HEART DISEASE OF [place] CORONARY 12/02/2017 Aimee LEWIS MD Ot I25.2 OLD MYOCARDIAL INFARCTION 12/02/2017 Aimee LEWIS MD Ot R93.1 ABNORMAL FINDINGS ON DX IMAGING OF HEART 12/02/2017 Aimee LEWIS MD Ot R94.39 ABNORMAL RESULT OF OTHER CARDIOVASCULAR 12/09/2017 Aimee LEWIS MD Ot E78.5 HYPERLIPIDEMIA, UNSPECIFIED 12/09/2017 Aimee LEWIS MD Ot F17.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, UNSPECIFIED, UNCOMP 12/09/2017 Aimee LEWIS MD Ot I10 ESSENTIAL (PRIMARY) HYPERTENSION 12/09/2017 Aimee LEWIS MD Ot I25.10 ATHSCL HEART DISEASE OF [place] CORONARY 12/09/2017 DEBBIE SAAVEDRA, Aimee CABRERA Ot R06.02 SHORTNESS OF BREATH 12/17/2017 DEBBIE SAAVEDRA, Aimee CABRERA Ot E78.5 HYPERLIPIDEMIA, UNSPECIFIED 12/17/2017 DEBBIE SAAVEDRA, Aimee CABRERA Ot F17.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, UNSPECIFIED, UNCOMP 12/17/2017 DEBBIE SAAVEDRA, Aimee CABRERA Ot I10 ESSENTIAL (PRIMARY) HYPERTENSION 12/17/2017 Aimee LEWIS MD Ot I25.10 ATHSCL HEART DISEASE OF [place] CORONARY 12/17/2017 Aimee LEWIS MD Ot R06.02 SHORTNESS OF BREATH 02/20/2018 Aimee LEIWS MD Ot E78.5 HYPERLIPIDEMIA, UNSPECIFIED 02/20/2018 Aimee LEWIS MD Ot F17.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, UNSPECIFIED, UNCOMP 02/20/2018 DEBBIE SAAVEDRA, Aimee CABRERA Ot I10 ESSENTIAL (PRIMARY) HYPERTENSION 02/20/2018 Aimee LEWIS MD Ot I25.10 ATHSCL HEART DISEASE OF [place] CORONARY 02/20/2018 DEBBIE SAAVEDRA, Aimee CABRERA Ot I73.9 PERIPHERAL VASCULAR DISEASE, UNSPECIFIED 02/20/2018 DEBBIE SAAVEDRA, Aimee CABRERA Ot R06.02 SHORTNESS OF BREATH 02/20/2018 Aimee LEWIS MD Ot E78.5 HYPERLIPIDEMIA, UNSPECIFIED 02/20/2018 DEBBIE SAAVEDRA, Aimee CABRERA Ot F17.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, UNSPECIFIED, UNCOMP 02/20/2018 DEBBIE SAAVEDRA, Aimee CABRERA Ot I10 ESSENTIAL (PRIMARY) HYPERTENSION 02/20/2018 DEBBIE SAAVEDRA, Aimee CABRERA Ot I25.10 ATHSCL HEART DISEASE OF [place] CORONARY 02/20/2018 Aimee LEWIS MD Ot R06.02 SHORTNESS OF BREATH 02/20/2018 Aimee LEWIS MD Ot I25.10 ATHSCL HEART DISEASE OF [place] CORONARY 02/20/2018 Aimee LEWIS MD Ot I25.2 OLD MYOCARDIAL INFARCTION 02/20/2018 Aimee LEWIS MD, Ot R93.1 ABNORMAL FINDINGS ON DX IMAGING OF HEART 02/20/2018 Aimee LEWIS MD, Ot R94.39 ABNORMAL RESULT OF OTHER CARDIOVASCULAR 02/20/2018 Aimee LEWIS MD, Ot I25.10 ATHSCL HEART DISEASE OF [place] CORONARY 02/20/2018 Aimee LEWIS MD, Ot I25.2 OLD MYOCARDIAL INFARCTION 02/20/2018 Aimee LEWIS MD, Ot R93.1 ABNORMAL FINDINGS ON DX IMAGING OF HEART 02/20/2018 Aimee LEWIS MD, Ot R94.39 ABNORMAL RESULT OF OTHER CARDIOVASCULAR Procedures There is no data. Results Test Result Range Comp. Metabolic Panel (14) - 07/05/16 09:47 Glucose, Serum 78 mg/dL 65-99 BUN 12 mg/dL 8-27 Creatinine, Serum 0.65 mg/dL 0.57-1.00 eGFR If NonAfricn Am 93 mL/min/1.73 >59 eGFR If Africn Am 108 mL/min/1.73 >59 BUN/Creatinine Ratio 18 11-26 Sodium, Serum 135 mmol/L 134-144 Potassium, Serum 4.9 mmol/L 3.5-5.2 Chloride, Serum 89 mmol/L 97-108 Carbon Dioxide, Total 27 mmol/L 18-29 Calcium, Serum 9.4 mg/dL 8.7-10.3 Protein, Total, Serum 6.7 g/dL 6.0-8.5 Albumin, Serum 4.2 g/dL 3.6-4.8 Globulin, Total 2.5 g/dL 1.5-4.5 A/G Ratio 1.7 1.1-2.5 Bilirubin, Total 0.5 mg/dL 0.0-1.2 Alkaline Phosphatase, S 84 IU/L 39-117 AST (SGOT) 20 IU/L 0-40 ALT (SGPT) 18 IU/L 0-32 Automated blood complete blood count (hemogram) panel - 10/03/17 07:09 Blood leukocytes automated count (number/volume) 8.8 10*3/uL 4.3-11.0 Blood erythrocytes automated count (number/volume) 5.01 10*6/uL 4.35-5.85 Venous blood hemoglobin measurement (mass/volume) 16.1 g/dL 11.5-16.0 Blood hematocrit (volume fraction) 48 % 35-52 Automated erythrocyte mean corpuscular volume 95 [foz_us] 80-99 Automated erythrocyte mean corpuscular hemoglobin (mass per erythrocyte) 32 pg 25-34 Automated erythrocyte mean corpuscular hemoglobin concentration measurement ( mass/volume) 34 g/dL 32-36 Automated erythrocyte distribution width ratio 13.8 % 10.0-14.5 Automated blood platelet count (count/volume) 209 10*3/uL 130-400 Automated blood platelet mean volume measurement 9.7 [foz_us] 7.4-10.4 PT panel in platelet poor plasma by coagulation assay - 10/03/17 07:09 Prothrombin time (PT) in platelet poor plasma by coagulation assay 11.9 s 12.2-14.7 INR in platelet poor plasma or blood by coagulation assay 0.9 0.8-1.4 Activated partial thromboplastin time (aPTT) in platelet poor plasma bycoagulation assay - 10/03/17 07:09 Activated partial thromboplastin time (aPTT) in platelet poor plasma bycoagulation assay 27 s 24-35 Comprehensive metabolic panel - 10/03/17 07:09 Serum or plasma sodium measurement (moles/volume) 138 mmol/L 135-145 Serum or plasma potassium measurement (moles/volume) 3.6 mmol/L 3.6-5.0 Serum or plasma chloride measurement (moles/volume) 97 mmol/L 98-107 Carbon dioxide 29 mmol/L 21-32 Serum or plasma anion gap determination (moles/volume) 12 mmol/L 5-14 Serum or plasma urea nitrogen measurement (mass/volume) 8 mg/dL 7-18 Serum or plasma creatinine measurement (mass/volume) 0.74 mg/dL 0.60-1.30 Serum or plasma urea nitrogen/creatinine mass ratio 11 NRG Serum or plasma creatinine measurement with calculation of estimated glomerular filtration rate > NRG Serum or plasma glucose measurement (mass/volume) 92 mg/dL 70-105 Serum or plasma calcium measurement (mass/volume) 9.1 mg/dL 8.5-10.1 Serum or plasma total bilirubin measurement (mass/volume) 0.3 mg/dL 0.1-1.0 Serum or plasma alkaline phosphatase measurement (enzymatic activity/volume) 82 U/L 40-136 Serum or plasma aspartate aminotransferase measurement (enzymatic activity/ volume) 16 U/L 5-34 Serum or plasma alanine aminotransferase measurement (enzymatic activity/volume ) 15 U/L 0-55 Serum or plasma protein measurement (mass/volume) 7.4 g/dL 6.4-8.2 Serum or plasma albumin measurement (mass/volume) 4.1 g/dL 3.2-4.5 Methicillin resistant Staphylococcus aureus (MRSA) screening culture - 07:09 MRSA SCREEN RESULT MRSA ISOLATED [facility] Automated blood complete blood count (hemogram) panel - 11/21/17 09:55 Blood leukocytes automated count (number/volume) 7.9 10*3/uL 4.3-11.0 Blood erythrocytes automated count (number/volume) 4.56 10*6/uL 4.35-5.85 Venous blood hemoglobin measurement (mass/volume) 15.0 g/dL 11.5-16.0 Blood hematocrit (volume fraction) 45 % 35-52 Automated erythrocyte mean corpuscular volume 98 [foz_us] 80-99 Automated erythrocyte mean corpuscular hemoglobin (mass per erythrocyte) 33 pg 25-34 Automated erythrocyte mean corpuscular hemoglobin concentration measurement ( mass/volume) 34 g/dL 32-36 Automated erythrocyte distribution width ratio 15.0 % 10.0-14.5 Automated blood platelet count (count/volume) 277 10*3/uL 130-400 Automated blood platelet mean volume measurement 9.7 [foz_us] 7.4-10.4 PT panel in platelet poor plasma by coagulation assay - 11/21/17 09:55 Prothrombin time (PT) in platelet poor plasma by coagulation assay 12.6 s 12.2-14.7 INR in platelet poor plasma or blood by coagulation assay 0.9 0.8-1.4 Activated partial thromboplastin time (aPTT) in platelet poor plasma bycoagulation assay - 11/21/17 09:55 Activated partial thromboplastin time (aPTT) in platelet poor plasma bycoagulation assay 28 s 24-35 Comprehensive metabolic panel - 11/21/17 09:55 Serum or plasma sodium measurement (moles/volume) 142 mmol/L 135-145 Serum or plasma potassium measurement (moles/volume) 4.4 mmol/L 3.6-5.0 Serum or plasma chloride measurement (moles/volume) 102 mmol/L 98-107 Carbon dioxide 29 mmol/L 21-32 Serum or plasma anion gap determination (moles/volume) 11 mmol/L 5-14 Serum or plasma urea nitrogen measurement (mass/volume) 15 mg/dL 7-18 Serum or plasma creatinine measurement (mass/volume) 0.75 mg/dL 0.60-1.30 Serum or plasma urea nitrogen/creatinine mass ratio 20 NRG Serum or plasma creatinine measurement with calculation of estimated glomerular filtration rate > NRG Serum or plasma glucose measurement (mass/volume) 87 mg/dL 70-105 Serum or plasma calcium measurement (mass/volume) 9.0 mg/dL 8.5-10.1 Serum or plasma total bilirubin measurement (mass/volume) 0.3 mg/dL 0.1-1.0 Serum or plasma alkaline phosphatase measurement (enzymatic activity/volume) 77 U/L 40-136 Serum or plasma aspartate aminotransferase measurement (enzymatic activity/ volume) 14 U/L 5-34 Serum or plasma alanine aminotransferase measurement (enzymatic activity/volume ) 14 U/L 0-55 Serum or plasma protein measurement (mass/volume) 6.8 g/dL 6.4-8.2 Serum or plasma albumin measurement (mass/volume) 3.7 g/dL 3.2-4.5 Lipid 1996 panel - 11/21/17 09:55 Serum or plasma triglyceride measurement (mass/volume) 53 mg/dL <150 Serum or plasma cholesterol measurement (mass/volume) 140 mg/dL < 200 Serum or plasma cholesterol in HDL measurement (mass/volume) 64 mg/ dL 40-60 Cholesterol in LDL [mass/volume] in serum or plasma by direct assay 56 mg/dL 1-129 Serum or plasma cholesterol in VLDL measurement (mass/volume) 11 mg/ dL 5-40 Methicillin resistant Staphylococcus aureus (MRSA) screening culture - 09:55 MRSA SCREEN RESULT MRSA ISOLATED [facility] Encounters ACCT No. Visit Date/Time Discharge Status Pt. Type Provider Facility Loc./Unit Complaint [id number] 11/21/2017 09:06:00 11/21/2017 19:25:00 DIS Outpatient Aimee LEWIS MD [facility] CATH DYSPENIA,CAD [id number] 11/19/2017 09:07:00 11/19/2017 23:59:59 CLS Outpatient Aimee LEWIS MD [facility] CARD [id number] 11/18/2017 08:41:00 11/18/2017 23:59:59 CLS Outpatient Aimee LEWIS MD [facility] CARD R94.39 I25.10 I25.2 R93.1 [id number] 11/14/2017 07:45:00 11/14/2017 23:59:59 CLS Outpatient Aimee LEWIS MD [facility] CARD E78.5 HYPERLIPIDEMIA [id number] 11/13/2017 09:49:00 11/13/2017 23:59:59 CLS Outpatient Aimee LEWIS MD [facility] CARD I25.10 CAD [id number] 10/03/2017 06:33:00 10/03/2017 15:00:00 DIS Outpatient Aimee LEWIS MD [facility] CATH SEVERE LIFESTYLE LIMITED CLAUDICATION, ABN SAHRA. [id number] 05/20/2016 16:02:00 05/21/2016 13:25:00 DIS Inpatient SINDY GALE DO [facility] ICU ACUTE NARCOTIC OVERDOSE [id number] 01/16/2016 13:12:00 01/16/2016 14:34:00 DIS Emergency KEVON FIERRO DO [facility] ER COUGH DIARRHEA [id number] 08/25/2013 19:24:00 08/27/2013 15:30:00 DIS Inpatient Kassy SAAVEDRA, Brooks Lundy [facility] [id number] 07/06/2016 07:06:00 Document Registration [id number] 04/28/2018 13:40:00 04/28/2018 23:59:59 CLS Outpatient LILLIAN SAAVEDRA, CEASAR DOTSON [facility] [place]
[2018-05-25] MEDS ORDERED: NS IV 500 ML 500 ML IV ONE (16:00)
[2018-05-25 16:20] VITALS: BP 160/76
[2018-05-25] MEDS ORDERED: ONDANSETRON 4 MG/2 ML (SDV) Z0FRAN IV PRN (16:45)
[2018-05-25] MEDS ORDERED: ONDANSETRON 4 MG (ZOFRAN) ORAL DISSOLVE TAB PO PRN (16:45)
[2018-05-25] MEDS ORDERED: CALCIUM CARBONATE 500 MG (TUMS) TAB.CHEW PO PRN (16:45)
[2018-05-25] MEDS ORDERED: KCL 10 MEQ TAB (MICRO K) PO ONE ×2 (17:15→17:43)
[2018-05-25] MEDS: lisINopril 20 MG (PRINIVIL) TABLET PO SCH (17:19)
[2018-05-25] MEDS: ASPIRIN 325 MG (5 GR) TABLET PO SCH (17:19)
[2018-05-25] MEDS: PARoxetine 20 MG (PAXIL) TAB PO SCH (17:19)
[2018-05-25] MEDS: FAMOTIDINE 20 MG (PEPCID) TABLET PO SCH ×2 (17:48→20:02)
[2018-05-25] MEDS: POTASSIUM CHLORIDE INJ 40 MEQ in 1/2 NS IV SOLUTION 1,000 ML IV SCH (17:48)
[2018-05-25] MEDS: MAGNESIUM 1 GM/100 ML IVPB 100 ML IV SCH ×2 (17:48→18:54)
[2018-05-25 19:30] VITALS: BP 135/80
[2018-05-25] MEDS: ANTACID SUSP 30 ML UDC (MYLANTA) PO SCH (20:01)
[2018-05-25] MEDS: morphine IMMEDIATE RELEASE 15 MG TABLET PO SCH (20:02)
[2018-05-25] MEDS: GABAPENTIN 600 MG (NEURONTIN) TAB PO SCH (20:02)
[2018-05-25] MEDS: ALPRAZolam 0.5 MG (XANAX) TAB PO PRN (21:06)
[2018-05-26] VITALS: BP 108/58
[2018-05-26] MEDS ORDERED: 1/2 NS IV SOLUTION 1,000 ML IV ONE (01:22)
[2018-05-26] MEDS ORDERED: POTASSIUM CL 10MEQ/50ML IVPB 50 ML IV ONE (01:23)
[2018-05-26] MEDS: POTASSIUM CHLORIDE INJ 40 MEQ in 1/2 NS IV SOLUTION 1,000 ML IV SCH ×2 (02:07→08:29)
[2018-05-26] MEDS ORDERED: IBUPROFEN 600 MG (MOTRIN) TAB PO ONE (02:10)
[2018-05-26] MEDS: IBUPROFEN 600 MG (MOTRIN) TAB PO PRN ×2 (02:13→11:14)
[2018-05-26 04:23] VITALS: BP 152/86
[2018-05-26 06:13] LABS: BASOPHILS % (AUTO) 0 % (0-10); EOSINOPHILS % (AUTO) 0 % (0-10); HEMATOCRIT 42 % (35-52); HEMOGLOBIN 14.8 G/DL (11.5-16.0); LYMPHOCYTES # (AUTO) 1.5 X 10^3 (1.0-4.0); LYMPHOCYTES % (AUTO) 19 % (12-44); MEAN CORPUSCULAR HEMOGLOBIN 33 PG (25-34); MEAN CORPUSCULAR HGB CONC 36 G/DL (32-36); MEAN CORPUSCULAR VOLUME 94 FL (80-99); MEAN PLATELET VOLUME 9.9 FL (7.4-10.4); MONOCYTES # (AUTO) 0.7 X 10^3 (0.0-1.0); MONOCYTES % (AUTO) 9 % (0-12); NEUTROPHILS # (AUTO) 5.9 X 10^3 (1.8-7.8); NEUTROPHILS % (AUTO) 72 % (42-75); PLATELET COUNT 169 10^3/uL (130-400); RED BLOOD COUNT 4.44 10^6/uL (4.35-5.85); RED CELL DISTRIBUTION WIDTH 14.3 % (10.0-14.5); WHITE BLOOD COUNT 8.2 10^3/uL (4.3-11.0)
[2018-05-26 06:28] LABS: BUN/CREATININE RATIO 17; CALCIUM 8.1 MG/DL (8.5-10.1); CARBON DIOXIDE 25 MMOL/L (21-32); CHLORIDE 102 MMOL/L (98-107); CREATININE SERUM 0.58 MG/DL (0.60-1.30); GFR ESTIMATED > 60; GLUCOSE 76 MG/DL (70-105); MAGNESIUM 2.2 MG/DL (1.8-2.4); POTASSIUM 4.5 MMOL/L (3.6-5.0); SODIUM 133 MMOL/L (135-145)
[2018-05-26] MEDS ORDERED: KCL 10 MEQ TAB (MICRO K) PO ONE (07:00)
[2018-05-26 08:00] VITALS: BP 172/95
[2018-05-26] MEDS: ASPIRIN 325 MG (5 GR) TABLET PO SCH (08:11)
[2018-05-26] MEDS: morphine IMMEDIATE RELEASE 15 MG TABLET PO SCH (08:11)
[2018-05-26] MEDS: ANTACID SUSP 30 ML UDC (MYLANTA) PO SCH (08:11)
[2018-05-26] MEDS: FAMOTIDINE 20 MG (PEPCID) TABLET PO SCH (08:12)
[2018-05-26] MEDS: lisINopril 20 MG (PRINIVIL) TABLET PO SCH (08:13)
[2018-05-26] MEDS: PARoxetine 20 MG (PAXIL) TAB PO SCH (08:13)
[2018-05-26] MEDS: GABAPENTIN 600 MG (NEURONTIN) TAB PO SCH (08:13)
[2018-05-26] MEDS ORDERED: meTOprolol TARTRATE 50 MG (LOPRESSOR) TAB PO SCH (09:00)
[2018-05-26] MEDS ORDERED: NITR0.4T42 SL (09:02)
[2018-05-26] MEDS: ALPRAZolam 0.5 MG (XANAX) TAB PO PRN (09:12)
--- NOTE | 2018-05-26 10:29 | History & Physical-Hospitalist ---
History of Present Illness HPI/Chief Complaint CC: Abdominal pain HPI: This is a 68[facility]WF clinic patient of [facility] who presented to the ER w/non- specific abdominal pain with negative w/u except chronic diarrhea which caused low magnesium and low potassium. Pt was seen by Dr Finch and has agreed for EGD and Colonoscopy as an oupt. Pt very difficult to obtain details from. Source: patient Exam Limitations: other Date Seen 05/26/18 Time Seen by Provider: 09:30 Attending Physician Marlen Allen MD PCP Sebastian Olsen MD Referring Physician Date of Admission May 25, 2018 at 15:20 Home Medications & Allergies Home Medications Reviewed patient Home Medication Reconciliation performed by pharmacy medication reconciliations seed technician and/or nursing. Patients Allergies have been reviewed. Allergies Allergies Coded Allergies acetaminophen (Verified Allergy, Unknown, 01/16/16) Past Pxemdib-Inuskv-Jcikbn Hx Past Med/Social Hx: Reviewed Nursing Past Med/Soc Hx, Reviewed and Corrections made Patient Social History Marrital Status: single Employed/Student: retired Alcohol Use: Denies Use Recreational Drug Use: No Smoking Status: Current Everyday Smoker Type Used: Cigarettes Physical Abuse Screen: No Sexual Abuse: No Recent Foreign Travel: No Contact w/other who traveled: No Recent Hopitalizations: No Recent Infectious Disease Expo: No Immunizations Up To Date Tetanus Booster (TDap): Unknown Date of Pneumonia Vaccine: Aug 08, 2016 Date of Influenza Vaccine: Jul 16, 2017 Seasonal Allergies Seasonal Allergies: No Past Medical History Surgeries: Cardiac, Coronary Stent, Hysterectomy Currently Using CPAP: No Currently Using BIPAP: No Cardiac: Coronary Artery Disease, Heart Attack, Hypertension Gastrointestinal: Colitis, Crohns Disease Musculoskeletal: Chronic Back Pain Loss of Vision: Right Hearing Impairment: Denies Cancer: Skin, Ovarian Psychosocial: Anxiety, PTSD, Bipolar, Depression History of Blood Disorders: No Family History Psychosocial problem G8 SISTER Review of Systems Constitutional: see HPI, malaise, weakness EENTM: no symptoms reported Respiratory: no symptoms reported Cardiovascular: no symptoms reported Gastrointestinal: abdominal pain (LUQ), diarrhea Genitourinary: no symptoms reported Musculoskeletal: no symptoms reported Skin: no symptoms reported Psychiatric/Neurological: No Symptoms Reported All Other Systems Reviewed Negative Unless Noted: Yes Physical Exam Physical Exam Vital Signs Vital Signs - First Documented 05/25/18 12:53 Temp 99.3 Pulse 76 Resp 17 B/P (MAP) 143/99 (114) Pulse Ox 99 O2 Delivery Room Air Capillary Refill : Less Than 3 Seconds Height, Weight, BMI Height: 5'0.00" Weight: 89lbs. 0.0oz. [id number]; 17.4 BMI Method:Stated General Appearance: No Apparent Distress, WD/WN, Chronically ill, Thin Eyes: Bilateral Eye Normal Inspection, Bilateral Eye PERRL HEENT: PERRL/EOMI, TMs Normal, Normal ENT Inspection, Pharynx Normal Neck: Full Range of Motion, Normal Inspection, Non Tender, Supple, Carotid Bruit Respiratory: Chest Non Tender, Lungs Clear, Normal Breath Sounds, No Accessory Muscle Use, No Respiratory Distress Cardiovascular: Regular Rate, Rhythm, No Edema, No Gallop, No JVD, No Murmur, Normal Peripheral Pulses Gastrointestinal: Normal Bowel Sounds, No Organomegaly, No Pulsatile Mass, Non Tender, Soft Back: Normal Inspection, No CVA Tenderness, No Vertebral Tenderness Extremity: Normal Capillary Refill, Normal Inspection, Normal Range of Motion, Non Tender, No Calf Tenderness, No Pedal Edema Neurologic/Psychiatric: Alert, Oriented x3, No Motor/Sensory Deficits, Normal Mood/Affect Skin: Normal Color, Warm/Dry Lymphatic: No Adenopathy Results Results/Procedures Labs Laboratory Tests 05/25/18 13:09 05/26/18 05:38 Patient resulted labs reviewed. Assessment/Plan Admission Diagnosis Assessment: Dehydration Abdominal pain Hypomagnesemia Plan: Consult Dr Finch for scopes Pt doing much better since admit Admission Status: Observation Diagnosis/Problems Diagnosis/Problems (1) Abdominal pain Status: Acute Qualifiers: Abdominal location: epigastric Qualified Codes: R10.13 - Epigastric pain (2) Diarrhea Status: Chronic Qualifiers: Diarrhea type: unspecified type Qualified Codes: R19.7 - Diarrhea, unspecified (3) Weight loss Status: Chronic (4) Poor historian Status: Chronic (5) Hypomagnesemia Status: Acute Assessment & Plan: s/p replacement now resolved (6) Hypokalemia Status: Acute Assessment & Plan: s/p replacement now resolved (7) Dehydration Status: Resolved Clinical Quality Measures DVT/VTE Risk/Contraindication: Risk Factor Score Per Nursin RFS Level Per Nursing on Admit: 3=High SINDY GALE DO May 26, 2018 10:29
[2018-05-26 12:17] VITALS: BP 155/89
[2018-05-26] MEDS ORDERED: FAMO-119 PO (14:48)
[2018-05-26] MEDS ORDERED: MAGN400T6 PO (14:48)
[2018-05-26] MEDS ORDERED: POTA10TA36 PO (14:48)
[2018-05-26 15:23] VITALS: BP 157/84
[2018-05-26 15:25] VITALS: BP 157/84
--- NOTE | 2018-05-26 17:18 | Consultation ---
History of Present Illness History of Present Illness Patient Consulted On(laura/time) 05/26/18 17:15 Date Seen by Provider: May 26, 2018 Time Seen by Provider: 13:35 Reason for Visit: Abdominal pain and diarrhea History of Present Illness This lady reportedly has a history of Crohn's disease, possibly of small bowel origin. She has been admitted with increasing abdominal pain, which has since resolved. I been asked to see her to evaluate and make recommendations regarding the history of Crohn's disease, especially with reference to further diagnostic testing. Allergies and Home Medications Allergies Coded Allergies: acetaminophen (Verified Allergy, Unknown, 01/16/16) Home Medications Acetaminophen 500 Mg Tablet, 1,000 MG PO Q4H PRN for PAIN-MILD, (Reported) Albuterol Sulfate 18 Gm Hfa.aer.ad, 2 PUFF INH Q4H PRN for SHORTNESS OF BREATH, (Reported) Alprazolam 1 Mg Tablet, 1 MG PO TID PRN for ANXIETY, (Reported) Aspirin 325 Mg Tablet.dr, 325 MG PO DAILY, (Reported) Atorvastatin Calcium 40 Mg Tablet, 40 MG PO HS, (Reported) Clopidogrel Bisulfate 75 Mg Tablet, 75 MG PO DAILY, (Reported) Famotidine 20 Mg Tablet, 20 MG PO BID Prescribed by: SINDY GALE on 05/26/18 1448 Gabapentin 600 Mg Tablet, 600 MG PO TID, (Reported) Lisinopril 10 Mg Tablet, 10 MG PO DAILY, (Reported) Loperamide HCl 2 Mg Tablet, PO UD PRN for DIARRHEA, (Reported) Magnesium Oxide 400 Mg Tablet, 400 MG PO DAILY Prescribed by: SINDY GALE on 05/26/18 1448 Metoprolol Tartrate 50 Mg Tablet, 50 MG PO BID, (Reported) Morphine Sulfate 15 Mg Tablet.er, 15 MG PO Q12H, (Reported) Nitroglycerin 0.4 Mg Tab.subl, 0.4 MG SL UD PRN for CHEST PAIN, (Reported) Paroxetine HCl 20 Mg Tablet, 20 MG PO DAILY, (Reported) Potassium Chloride 10 Meq Tab.er.prt, 10 MEQ PO DAILY Prescribed by: SINDY GALE on 05/26/18 1448 Simethicone 125 Mg Tab.chew, 125-250 MG PO ACHS PRN for GAS, (Reported) Patient Home Medication List Home Medication List Reviewed: Yes Past Aviswem-Exaxng-Kbccoe Hx Past Med/Social Hx: Reviewed Nursing Past Med/Soc Hx, Reviewed and Corrections made Patient Social History Alcohol Use: Denies Use Recreational Drug Use: No Smoking Status: Current Everyday Smoker Type Used: Cigarettes Recent Foreign Travel: No Contact w/Someone Who Travel: No Recent Infectious Disease Expo: No Recent Hopitalizations: No Immunizations Up To Date Tetanus Booster (TDap): Unknown Date of Pneumonia Vaccine: Aug 08, 2016 Date of Influenza Vaccine: Jul 16, 2017 Seasonal Allergies Seasonal Allergies: No Past Medical History Surgeries: Yes Cardiac, Coronary Stent, Hysterectomy Respiratory: Yes Asthma, COPD Currently Using CPAP: No Currently Using BIPAP: No Cardiac: Yes (STENTS--UNKNOWN NUMBER) Coronary Artery Disease, Heart Attack, Hypertension Neurological: No Gastrointestinal: Yes Colitis, Crohns Disease Musculoskeletal: Yes (RESTLESS LEGS ) Chronic Back Pain Endocrine: No HEENT: Yes (STATED SHE HAS TROUBLE SEEING THE MENU) Loss of Vision: Right Hearing Impairment: Denies Cancer: Yes Skin, Ovarian Psychosocial: Yes (PANIC ATTACKS) Anxiety, PTSD, Bipolar, Depression Integumentary: Yes ("SKIN CANCER SPOTS") Blood Disorders: No Family Medical History Psychosocial problem G8 SISTER Review of Systems-General Constitutional: malaise, weakness EENTM: no symptoms reported Respiratory: no symptoms reported Cardiovascular: no symptoms reported Gastrointestinal: see HPI Genitourinary: no symptoms reported Musculoskeletal: no symptoms reported Skin: no symptoms reported Physical Exam-General Problems Physical Exam Vital Signs Vital Signs - First Documented 05/25/18 12:53 Temp 99.3 Pulse 76 Resp 17 B/P (MAP) 143/99 (114) Pulse Ox 99 O2 Delivery Room Air Capillary Refill : Less Than 3 Seconds General Appearance: no apparent distress Neck: non-tender Respiratory: lungs clear Cardiovascular: regular rate, rhythm Gastrointestinal: non tender, soft, other Rectal: deferred Neurologic/Psychiatric: alert, oriented x 3 Skin: warm/dry Lymphatic: no adenopathy Comments Long midline scar without any incisional hernia. Assessment/Plan Assessment/Plan Admission Diagnosis/Plan Lady with a history of Crohn's disease, previous resection. She is unsure about the location of surgery and therefore it would be difficult to obtain medical records for review. It is however reasonable to proceed with endoscopic evaluation. I discussed this with her and she is in agreement. Outpatient arrangements would be made. CT scan is negative for any obstructive etiology. Admission Status: Observation Clinical Quality Measures DVT/VTE Risk/Contraindication: Risk Factor Score Per Nursin RFS Level Per Nursing on Admit: 3=High SIA COOK MD May 26, 2018 5:17 pm
[2018-05-26] MEDS ORDERED: GABAPENTIN 600 MG (NEURONTIN) TAB PO SCH (21:00)
[2018-05-27] MEDS ORDERED: FAMOTIDINE 20 MG (PEPCID) TABLET PO SCH (09:00)
--- NOTE | 2018-05-28 15:16 | Physician Query-Final Dx ---
BRITTANY YE 05/28/18 1516: Final Diagnosis Give Final Diagnosis Please give Final Diagnosis SINDY GALE DO 05/28/18 2220: Final Diagnosis Give Final Diagnosis Gastroenteritis Hypomagnesemia Hypokalemia Hyponatremia BRITTANY YE May 28, 2018 15:16 SINDY GALE DO May 28, 2018 22:20
[2018-06-02] MEDS ORDERED: PANT40TA2 PO (11:45)
== END 2018-05-26 14:48 | disposition home or self-care (01) ==
LOC: EDUNIT# 12:09 → ER 12:13 → 4TH 15:20 → UNDOADMOB 15:20 → 4TH 16:20 → UNDODISOB 05-26 15:25
PROVIDERS: ADMIT Family Medicine; ATTEND Family Medicine
DX: E86.0 Dehydration (principal); E87.6 Hypokalemia; E83.42 Hypomagnesemia; K52.9 Noninfective gastroenteritis and colitis, unspecified; R10.13 Epigastric pain; R63.4 Abnormal weight loss; I25.10 Atherosclerotic heart disease of native coronary artery without angina pectoris; I10 Essential (primary) hypertension; Z79.899 Other long term (current) drug therapy; J44.9 Chronic obstructive pulmonary disease, unspecified; J45.909 Unspecified asthma, uncomplicated; F41.9 Anxiety disorder, unspecified; F17.210 Nicotine dependence, cigarettes, uncomplicated; I25.2 Old myocardial infarction; Z79.82 Long term (current) use of aspirin; Z95.5 Presence of coronary angioplasty implant and graft
CPT/HCPCS: 36415; 71046; 74177; 80048; 80053; 81000; 82962; 83690; 83735; 84484; 85025; 86141; 93005; 96361; 96374; 96375; G0378

== ENCOUNTER 2018-06-02 09:48 | Day surgery (SDC) | payer MEDICARE ==
[~2018-06-02 09:48] MED LIST changes: +FAMO-119 PO; +LISI10TA2 PO; +MAGN400T6 PO; +NITR0.4T42 SL; +PARO20TA5 PO; +POTA10TA36 PO
[2018-06-02] MEDS ORDERED: NS IV 500 ML 500 ML IV PRN (09:57)
[2018-06-02] MEDS ORDERED: NS IV 500 ML 500 ML ONE (10:04)
[2018-06-02 10:11] VITALS: BP 122/84
[2018-06-02] MEDS ORDERED: HURRICAINE EXT TUBE (BENZOCAINE) XX PRN (10:30)
--- NOTE | 2018-06-02 10:44 | Conscious Sedation/ASA ---
Conscious Sedation Pre-Proced Time Reviewed: 10:44 ASA Class: 2 Airway Mallampati Classification: ([place] appropriate class) I. II. III, IV Lungs Heart ASA score ASA 1: a normal healthy patient ASA 2: a patient with a mild systemic disease (mid diabetes, controlled hypertension, obesity ASA 3: a patient with a severe systemic disease that limits activity (angina , COPD, prior Myocardial infarction) ASA 4: a patient with an incapacitating disease that is a constant threat to life (CHF, renal failure) ASA 5: a moribund patient not expected to survive 24 hrs. (ruptured aneurysm) ASA 6: a declared brain patient whose organs are being harvested. For emergent operations, add the letter E after the classification Grade 1 Sedation Plan: Discussed options with patient/fam Note The patient is an appropriate candidate to undergo the planned procedure, sedation, and anesthesia. The patient immediately re-assessed prior to indication. SAI COOK MD Jun 02, 2018 10:44 am
[2018-06-02] MEDS ORDERED: MIDAZOLAM 2 MG/2 ML (VERSED) VIAL ONE ×3 (11:07→11:08)
[2018-06-02] MEDS ORDERED: fentaNYL INJECTION 100 MCG/2 ML AMP ONE (11:08)
[2018-06-02] MEDS ORDERED: HURRICAINE EXT TUBE (BENZOCAINE) ONE (11:08)
[2018-06-02] MEDS: fentaNYL INJECTION 100 MCG/2 ML AMP IVP PRN ×2 (11:15→11:28)
[2018-06-02] MEDS: MIDAZOLAM 2 MG/2 ML (VERSED) VIAL IVP PRN ×3 (11:17→11:30)
--- NOTE | 2018-06-02 11:44 | Endo Procedure Record ---
Endo Procedure Report Date of Procedure Last Colonoscopy: Yes (2005) Jun 02, 2018 Surgeon (s) SAI COOK MD Post Procedure/Op Diagnosis EGD: Multiple distal gastric ulcers. Hiatal hernia Normal colonoscopy Procedure Performed EGD with biopsy of gastric ulcer Colonoscopy to cecum Description of Procedure Anesthesia Type: Conscious Sedation Specimen(s) collected/removed Tissue from gastric ulcer Description of the Procedure Indication for the procedures: This lady reports having undergone possibly small bowel resection to manage Crohn's disease. She suffered epigastric pain and diarrhea and therefore GI endoscopy including colonoscopy was felt to be reasonable. Informed consent was obtained after reviewing the procedures in detail. Description of procedures: EGD/biopsy: She was placed in left lateral rectus position and her vital signs were monitored. Conscious sedation was achieved using Versed and fentanyl. The flexible gastroscope was introduced down the esophagus, past the stomach, into the proximal duodenum Findings: Esophagus: An uncomplicated hiatal hernia. Stomach: Multiple gastric ulcers ranging in size from 2-4 mm at the distal stomach. Biopsy was obtained Duodenum: Normal She tolerated the procedure well and was turned around in preparation for colonoscopy. Impression: History of Crohn's disease. Multiple gastric ulcers found. Biopsy and Helicobacter status pending. Colonoscopy: Digital rectal examination was unremarkable. The scope was then introduced rectum and advanced all the way up to cecum Quality of bowel preparation was excellent. The scope was then withdrawn slowly and the mucosa examined in a systematic fashion. I there was no abnormality She tolerated the procedures well and was taken back to the nursing area in a stable condition. Impression: Previous history of Crohn's disease. Normal colonoscopy Copy Copies To 1: CEASAR SNYDER MD, XAVIER M MD Jun 02, 2018 11:44 am
[2018-06-02] MEDS ORDERED: PANT40TA2 PO (11:45)
--- NOTE | 2018-06-02 11:46 | Discharge Inst-Simple/Standard ---
Discharge Inst-Standard Discharge Medications New, Converted or Re-Newed RX: RX on Chart Patient Instructions/Follow Up Plan of Care/Instructions/FU: Follow-up with her primary physician Activity as Tolerated: Yes Discharge Diet: No Restrictions SAI COOK MD Jun 02, 2018 11:46 am
[2018-06-02 12:10] VITALS: BP 145/79
[2018-06-02 12:35] VITALS: BP 124/71
[2018-06-02 12:45] VITALS: BP 124/71
== END 2018-06-02 12:51 | disposition home or self-care (01) ==
LOC: ENDO 09:48
PROVIDERS: ATTEND Surgery
DX: K25.9 Gastric ulcer, unspecified as acute or chronic, without hemorrhage or perforation (principal); K44.9 Diaphragmatic hernia without obstruction or gangrene; K50.90 Crohn's disease, unspecified, without complications; F17.210 Nicotine dependence, cigarettes, uncomplicated; J44.9 Chronic obstructive pulmonary disease, unspecified; Z95.5 Presence of coronary angioplasty implant and graft; I25.10 Atherosclerotic heart disease of native coronary artery without angina pectoris; I25.2 Old myocardial infarction; I10 Essential (primary) hypertension; G25.81 Restless legs syndrome; F41.9 Anxiety disorder, unspecified; F31.9 Bipolar disorder, unspecified

== ENCOUNTER 2018-08-03 00:07 | Inpatient (IN) | payer MEDICARE ==
[~2018-08-03] VITALS: Ht 152.4 cm; Wt 38.1 kg
[2018-08-03] VITALS (15 sets, daily range): BP systolic 100–174; BP diastolic 54–85
[~2018-08-03 00:07] MED LIST changes: -BENZ-13 PO; +BENZ100C18 PO; +PANT40TA2 PO
--- OUTSIDE RECORDS SUMMARY | 2018-08-03 00:13 | XMS REPORT | Continuity of Care Document ---
Author Author [facility] Organization [facility] Address Unknown Phone Unavailable Allergies Active Description Code Type Severity Reaction Onset Reported/Identified Relationship to Patient Clinical Status Yes NUTS Moderate N/ A 11/07/2006 Yes celecoxib Drug Allergy Unknown GI UPSET 01/20/2009 Yes acetaminophen [id number] Drug Allergy Unknown N/A 01/16/2016 Medications There [...] DO Ot I25.10 ATHSCL HEART DISEASE OF [place] CORONARY 05/21/2016 BALJINDER THAYER SINDY Ot I25.2 OLD MYOCARDIAL INFARCTION 05/21/2016 SINDY GALE DO Ot J44.9 CHRONIC OBSTRUCTIVE PULMONARY DISEASE, U 05/21/2016 SINDY GALE DO Ot T40.601A POISONING BY UNSP NARCOTICS, ACCIDENTAL, 05/21/2016 SINDY GALE DO Ot Z95.5 PRESENCE OF CORONARY ANGIOPLASTY IMPLANT 05/21/2016 ELVIS GALE DOI Ot F17.210 NICOTINE DEPENDENCE, CIGARETTES, UNCOMPL 05/21/2016 BALJINDER THAYER SINDY Ot I10 ESSENTIAL (PRIMARY) HYPERTENSION 05/21/2016 BALJINDER THAYER SINDY Ot I25.10 ATHSCL HEART DISEASE OF [place] CORONARY 05/21/2016 BALJINDER THAYER SINDY Ot I25.2 [...] MD Ot I25.10 ATHSCL HEART DISEASE OF [place] CORONARY 10/03/2017 Aimee LEWIS MD Ot I25.2 OLD MYOCARDIAL INFARCTION 10/03/2017 Aimee LEWIS MD Ot I70.213 ATHSCL [place] ARTERIES OF EXTRM W INTRMT 10/03/2017 Aimee LEWIS MD Ot R06.02 SHORTNESS OF BREATH 10/03/2017 Aimee LEWIS MD Ot Z79.82 ALF (CURRENT) USE OF ASPIRIN 10/03/2017 Aimee LEWIS MD Ot Z79.899 OTHER ALF (CURRENT) DRUG THERAPY 10/03/2017 Aimee LEWIS MD Ot Z95.5 PRESENCE OF CORONARY ANGIOPLASTY IMPLANT 10/09/2017 Aimee LEWIS MD Ot E78.5 HYPERLIPIDEMIA, UNSPECIFIED 10/09/2017 Aimee LEWIS MD Ot F17.290 NICOTINE DEPENDENCE, OTHER TOBACCO PRODU 10/09/2017 Aimee LEWIS MD Ot I10 ESSENTIAL (PRIMARY) HYPERTENSION 10/09/2017 Aimee LEWIS MD Ot I25.10 ATHSCL HEART DISEASE OF [place] CORONARY 10/09/2017 Aimee LEWIS MD Ot I25.2 OLD MYOCARDIAL INFARCTION 10/09/2017 Aimee LEWIS MD Ot I70.213 ATHSCL [place] ARTERIES OF EXTRM W INTRMT 10/09/2017 Aimee LEWIS MD Ot R06.02 SHORTNESS OF BREATH 10/09/2017 Aimee LEWIS MD Ot Z79.82 BAR USEFUL OR BUSSER (CURRENT) USE OF ASPIRIN 10/09/2017 Aimee LEWIS MD Ot Z79.899 OTHER ALF (CURRENT) DRUG THERAPY 10/09/2017 Aimee LEWIS MD [...] MD Ot I25.10 ATHSCL HEART DISEASE OF [place] CORONARY 11/21/2017 Aimee LEWIS MD Ot I25.2 OLD MYOCARDIAL INFARCTION 11/21/2017 Aimee LEWIS MD Ot I27.20 PULMONARY HYPERTENSION, UNSPECIFIED 11/21/2017 Aimee LEWIS MD Ot I70.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[place] ARTERIES OF EXTRM W INTRMT 11/21/2017 Aimee LEWIS MD Ot T82.855A STENOSIS OF CORONARY ARTERY STENT, INITI 11/21/2017 Aimee LEWIS MD Ot Z79.82 ALF (CURRENT) USE OF ASPIRIN 11/21/2017 Aimee LEWIS MD Ot Z79.899 OTHER BAR USEFUL OR BUSSER (CURRENT) DRUG THERAPY 11/21/2017 Aimee LEWIS MD [...] MD Ot I25.10 ATHSCL HEART DISEASE OF [place] CORONARY 11/25/2017 Aimee LEWIS MD Ot I25.2 OLD MYOCARDIAL INFARCTION 11/25/2017 Aimee LEWIS MD Ot I27.20 PULMONARY HYPERTENSION, UNSPECIFIED 11/25/2017 Aimee LEWIS MD Ot I70.213 ATHSCL [place] ARTERIES OF EXTRM W INTRMT 11/25/2017 Aimee LEWIS MD Ot T82.855A STENOSIS OF CORONARY ARTERY STENT, INITI 11/25/2017 Aimee LEWIS MD Ot Z79.82 ALF (CURRENT) USE OF ASPIRIN 11/25/2017 Aimee LEWIS MD, Ot Z79.899 OTHER ALF (CURRENT) DRUG THERAPY 11/25/2017 Aimee LEWIS MD [...] MD Ot I25.10 ATHSCL HEART DISEASE OF [place] CORONARY 11/26/2017 Aimee LEWIS MD Ot I25.2 OLD MYOCARDIAL INFARCTION 11/26/2017 Aimee LEWIS MD Ot I27.20 PULMONARY HYPERTENSION, UNSPECIFIED 11/26/2017 Aimee LEWIS MD Ot I70.213 ATHSCL [place] ARTERIES OF EXTRM W INTRMT 11/26/2017 Aimee LEWIS MD Ot T82.855A STENOSIS OF CORONARY ARTERY STENT, INITI 11/26/2017 Aimee LEWIS MD Ot Z79.82 ALF (CURRENT) USE OF ASPIRIN 11/26/2017 Aimee LEWIS MD Ot Z79.899 OTHER ALF (CURRENT) DRUG THERAPY 11/26/2017 Aimee LEWIS MD Ot Z95.5 PRESENCE OF CORONARY ANGIOPLASTY IMPLANT 12/02/2017 Aimee LEWIS MD Ot E78.5 HYPERLIPIDEMIA, UNSPECIFIED 12/02/2017 Aimee LEWIS MD Ot F17.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, UNSPECIFIED, UNCOMP 12/02/2017 Aimee LEWIS MD Ot I10 ESSENTIAL (PRIMARY) HYPERTENSION 12/02/2017 Aimee LEWIS MD Ot I25.10 ATHSCL HEART DISEASE OF [place] CORONARY 12/02/2017 Aimee LEWIS MD Ot R06.02 SHORTNESS OF BREATH 12/02/2017 Aimee LEWIS MD Ot E78.5 HYPERLIPIDEMIA, UNSPECIFIED 12/02/2017 Aimee LEWIS MD Ot F17.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, UNSPECIFIED, UNCOMP 12/02/2017 Aimee LEWIS MD Ot I10 ESSENTIAL (PRIMARY) HYPERTENSION 12/02/2017 Aimee LEWIS MD Ot I25.10 ATHSCL HEART DISEASE OF [place] CORONARY 12/02/2017 Aimee LEWIS MD Ot I73.9 PERIPHERAL VASCULAR DISEASE, UNSPECIFIED 12/02/2017 Aimee LEWIS MD Ot R06.02 SHORTNESS OF BREATH 12/02/2017 Aimee LEWIS MD Ot I25.10 ATHSCL HEART DISEASE OF [place] CORONARY 12/02/2017 Aimee LEWIS MD Ot I25.2 [...] MD Ot I25.10 ATHSCL HEART DISEASE OF [place] CORONARY 12/09/2017 DEBBIE SAAVEDRA, Aimee CABRERA Ot R06.02 SHORTNESS OF BREATH 12/17/2017 DEBBIE SAAVEDRA, Aimee CABRERA Ot E78.5 HYPERLIPIDEMIA, UNSPECIFIED 12/17/2017 DEBBIE SAAVEDRA, Aimee CABRERA Ot F17.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, UNSPECIFIED, UNCOMP 12/17/2017 EDBBIE SAAVEDRA, Aimee CABRERA Ot I10 ESSENTIAL (PRIMARY) HYPERTENSION 12/17/2017 Aimee LEWIS MD Ot I25.10 ATHSCL HEART DISEASE OF [place] CORONARY 12/17/2017 Aimee LEWIS MD Ot R06.02 SHORTNESS OF BREATH 02/20/2018 Aimee LEWIS MD Ot E78.5 HYPERLIPIDEMIA, UNSPECIFIED 02/20/2018 Aimee LEWIS MD Ot F17.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, UNSPECIFIED, UNCOMP 02/20/2018 DEBBIE SAAVEDRA, Aimee CABRERA Ot I10 ESSENTIAL (PRIMARY) HYPERTENSION 02/20/2018 Aimee LEWIS MD Ot I25.10 ATHSCL HEART DISEASE OF [place] CORONARY 02/20/2018 DEBBIE SAAVEDRA, Aimee CABRERA Ot I73.9 PERIPHERAL VASCULAR DISEASE, UNSPECIFIED 02/20/2018 DEBBIE SAAVEDRA, Aimee CABRERA Ot R06.02 SHORTNESS OF BREATH 02/20/2018 Aimee LEWIS MD Ot E78.5 HYPERLIPIDEMIA, UNSPECIFIED 02/20/2018 DEBBIE SAAVEDRA, Aimee CABRERA Ot F17.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, UNSPECIFIED, UNCOMP 02/20/2018 DEBBIE SAAVEDRA, Aimee CABRERA Ot I10 ESSENTIAL (PRIMARY) HYPERTENSION 02/20/2018 DEBBIE SAAVEDRA, Aimee CABRERA Ot I25.10 ATHSCL HEART DISEASE OF [place] CORONARY 02/20/2018 Aimee LEWIS MD Ot R06.02 SHORTNESS OF BREATH 02/20/2018 Aimee LEWIS MD Ot I25.10 ATHSCL HEART DISEASE OF [place] CORONARY 02/20/2018 Aimee LEWIS MD Ot I25.2 OLD MYOCARDIAL INFARCTION 02/20/2018 Aimee LEWIS MD Ot R93.1 ABNORMAL FINDINGS ON DX IMAGING OF HEART 02/20/2018 Aimee LEWIS MD Ot R94.39 ABNORMAL RESULT OF OTHER CARDIOVASCULAR 02/20/2018 Aimee LEWIS MD Ot I25.10 ATHSCL HEART DISEASE OF [place] CORONARY 02/20/2018 Aimee LEWIS MD Ot I25.2 OLD MYOCARDIAL INFARCTION 02/20/2018 Aimee LEWIS MD Ot R93.1 ABNORMAL FINDINGS ON DX IMAGING OF HEART 02/20/2018 Aimee LEWIS MD Ot R94.39 ABNORMAL RESULT OF OTHER CARDIOVASCULAR 05/26/2018 DARCI MATIAS MD Ot E83.42 HYPOMAGNESEMIA 05/26/2018 DARCI MATIAS MD Ot E86.0 DEHYDRATION 05/26/2018 DARCI MATIAS MD Ot E87.6 HYPOKALEMIA 05/26/2018 DARCI MATIAS MD Ot F17.210 NICOTINE DEPENDENCE, CIGARETTES, UNCOMPL 05/26/2018 DARCI MATIAS MD Ot F41.9 ANXIETY DISORDER, UNSPECIFIED 05/26/2018 DARCI MATIAS MD Ot I10 ESSENTIAL (PRIMARY) HYPERTENSION 05/26/2018 DARCI MATIAS MD, Ot I25.10 ATHSCL HEART DISEASE OF [place] CORONARY 05/26/2018 DARCI MATIAS MD Ot I25.2 OLD MYOCARDIAL INFARCTION 05/26/2018 DARCI MATIAS MD Ot J44.9 CHRONIC OBSTRUCTIVE PULMONARY DISEASE, U 05/26/2018 DARCI MATIAS MD, Ot J45.909 UNSPECIFIED ASTHMA, UNCOMPLICATED 05/26/2018 DARCI MATIAS MD Ot K52.9 NONINFECTIVE GASTROENTERITIS AND COLITIS 05/26/2018 DARCI MATIAS MD Ot R10.13 EPIGASTRIC PAIN 05/26/2018 DARCI MATIAS MD Ot R63.4 ABNORMAL WEIGHT LOSS 05/26/2018 DARCI MATIAS MD Ot Z79.82 ALF (CURRENT) USE OF ASPIRIN 05/26/2018 DARCI MATIAS MD Ot Z79.899 OTHER BAR USEFUL OR BUSSER (CURRENT) DRUG THERAPY 05/26/2018 DARCI MATIAS MD Ot Z95.5 PRESENCE OF CORONARY ANGIOPLASTY IMPLANT 05/26/2018 DARCI MATIAS MD Ot E83.42 HYPOMAGNESEMIA 05/26/2018 DARCI MATIAS MD Ot E86.0 DEHYDRATION 05/26/2018 DARCI MATIAS MD Ot E87.6 HYPOKALEMIA 05/26/2018 DARCI MATIAS MD Ot F17.210 NICOTINE DEPENDENCE, CIGARETTES, UNCOMPL 05/26/2018 DARCI MATIAS MD Ot F41.9 ANXIETY DISORDER, UNSPECIFIED 05/26/2018 DARCI MATIAS MD Ot I10 ESSENTIAL (PRIMARY) HYPERTENSION 05/26/2018 DARCI MATIAS MD Ot I25.10 ATHSCL HEART DISEASE OF [place] CORONARY 05/26/2018 DARCI MATIAS MD Ot I25.2 OLD MYOCARDIAL INFARCTION 05/26/2018 DARCI MATIAS MD Ot J44.9 CHRONIC OBSTRUCTIVE PULMONARY DISEASE, U 05/26/2018 DARCI MATIAS MD Ot J45.909 UNSPECIFIED ASTHMA, UNCOMPLICATED 05/26/2018 DARCI MATIAS MD Ot K52.9 NONINFECTIVE GASTROENTERITIS AND COLITIS 05/26/2018 DARCI MATIAS MD Ot R10.13 EPIGASTRIC PAIN 05/26/2018 DARCI MATIAS MD Ot R63.4 ABNORMAL WEIGHT LOSS 05/26/2018 POLLY SAAVEDRA, DARCI R Ot Z79.82 BAR USEFUL OR BUSSER (CURRENT) USE OF ASPIRIN 05/26/2018 DARCI MATIAS MD Ot Z79.899 OTHER ALF (CURRENT) DRUG THERAPY 05/26/2018 DARCI MATIAS MD Ot Z95.5 PRESENCE OF CORONARY ANGIOPLASTY IMPLANT 06/02/2018 JOEY SAAVEDRA, SAI Yu Ot F17.210 NICOTINE DEPENDENCE, CIGARETTES, UNCOMPL 06/02/2018 JOEY SAAVEDRA, SAI Yu Ot F31.9 BIPOLAR DISORDER, UNSPECIFIED 06/02/2018 SAI COOK MD Ot F41.9 ANXIETY DISORDER, UNSPECIFIED 06/02/2018 JOEY SAAVEDRA, SAI Yu Ot G25.81 RESTLESS LEGS SYNDROME 06/02/2018 SAI COOK MD Ot I10 ESSENTIAL (PRIMARY) HYPERTENSION 06/02/2018 JOEY SAAVEDRA, SAI Yu Ot I25.10 ATHSCL HEART DISEASE OF [place] CORONARY 06/02/2018 COOK MD, SAI M Ot I25.2 OLD MYOCARDIAL INFARCTION 06/02/2018 JOEY SAAVEDRA, SAI Yu Ot J44.9 CHRONIC OBSTRUCTIVE PULMONARY DISEASE, U 06/02/2018 JOEY SAAVEDRA, SAI Yu Ot K25.9 GASTRIC ULCER, UNSP ACUTE OR CHRONIC, 06/02/2018 JOEY SAAVEDRA, SAI Yu Ot K44.9 DIAPHRAGMATIC HERNIA WITHOUT OBSTRUCTION 06/02/2018 JOEY SAAVEDRA, SAI Yu Ot K50.90 CROHN'S DISEASE, UNSPECIFIED, WITHOUT CO 06/02/2018 JOEY SAAVEDRA, SAI Yu Ot Z95.5 PRESENCE OF CORONARY ANGIOPLASTY IMPLANT 06/03/2018 SAI COOK MD Ot F17.210 NICOTINE DEPENDENCE, CIGARETTES, UNCOMPL 06/03/2018 JOEY SAAVEDRA, SAI Yu Ot F31.9 BIPOLAR DISORDER, UNSPECIFIED 06/03/2018 SAI COOK MD Ot F41.9 ANXIETY DISORDER, UNSPECIFIED 06/03/2018 SAI COOK MD Ot G25.81 RESTLESS LEGS SYNDROME 06/03/2018 SAI COOK MD Ot I10 ESSENTIAL (PRIMARY) HYPERTENSION 06/03/2018 JOEY SAAVEDRA, SAI Yu Ot I25.10 ATHSCL HEART DISEASE OF [place] CORONARY 06/03/2018 JOEY SAAVEDRA, SAI Yu Ot I25.2 OLD MYOCARDIAL INFARCTION 06/03/2018 JOEY SAAVEDRA, SAI Yu Ot J44.9 CHRONIC OBSTRUCTIVE PULMONARY DISEASE, U 06/03/2018 JOEY SAAVEDRA, SAI Yu Ot K25.9 GASTRIC ULCER, UNSP ACUTE OR CHRONIC, 06/03/2018 JOEY SAAVEDRA, SAI Yu Ot K44.9 DIAPHRAGMATIC HERNIA WITHOUT OBSTRUCTION 06/03/2018 JOEY SAAVEDRA, SAI Yu Ot K50.90 CROHN'S DISEASE, UNSPECIFIED, WITHOUT CO 06/03/2018 JOEY SAAVEDRA, SAI Yu Ot Z95.5 PRESENCE OF CORONARY ANGIOPLASTY IMPLANT 06/03/2018 JOEY SAAVEDRA, SAI Yu Ot F17.210 NICOTINE DEPENDENCE, CIGARETTES, UNCOMPL 06/03/2018 SAI COOK MD Ot F31.9 BIPOLAR DISORDER, UNSPECIFIED 06/03/2018 SAI COOK MD Ot F41.9 ANXIETY DISORDER, UNSPECIFIED 06/03/2018 SAI COOK MD Ot G25.81 RESTLESS LEGS SYNDROME 06/03/2018 SAI COOK MD Ot I10 ESSENTIAL (PRIMARY) HYPERTENSION 06/03/2018 SAI COOK MD, Ot I25.10 ATHSCL HEART DISEASE OF [place] CORONARY 06/03/2018 SAI COOK MD, Ot I25.2 OLD MYOCARDIAL INFARCTION 06/03/2018 SAI COOK MD, Ot J44.9 CHRONIC OBSTRUCTIVE PULMONARY DISEASE, U 06/03/2018 SAI COOK MD, Ot K25.9 GASTRIC ULCER, UNSP ACUTE OR CHRONIC, 06/03/2018 SAI COOK MD, Ot K44.9 DIAPHRAGMATIC HERNIA WITHOUT OBSTRUCTION 06/03/2018 SAI COOK MD, Ot K50.90 CROHN'S DISEASE, UNSPECIFIED, WITHOUT CO 06/03/2018 SAI COOK MD, Ot Z95.5 PRESENCE OF CORONARY ANGIOPLASTY IMPLANT Procedures There is no data. Results Test [...] - 07:09 MRSA SCREEN RESULT MRSA ISOLATED [facility] Automated blood complete blood count (hemogram) panel [...] - 09:55 MRSA SCREEN RESULT MRSA ISOLATED NR Complete blood count (CBC) with automated white blood cell (WBC) differential - 05/25/18 13:09 Blood leukocytes automated count (number/volume) 9.3 10*3/uL 4.3-11.0 Blood erythrocytes automated count (number/volume) 4.70 10*6/uL 4.35-5.85 Venous blood hemoglobin measurement (mass/volume) 15.8 g/dL 11.5-16.0 Blood hematocrit (volume fraction) 43 % 35-52 Automated erythrocyte mean corpuscular volume 92 [foz_us] 80-99 Automated erythrocyte mean corpuscular hemoglobin (mass per erythrocyte) 34 pg 25-34 Automated erythrocyte mean corpuscular hemoglobin concentration measurement ( mass/volume) 37 g/dL 32-36 Automated erythrocyte distribution width ratio 14.3 % 10.0-14.5 Automated blood platelet count (count/volume) 188 10*3/uL 130-400 Automated blood platelet mean volume measurement 10.4 [foz_us] 7.4-10.4 Automated blood neutrophils/100 leukocytes 81 % 42-75 Automated blood lymphocytes/100 leukocytes 12 % 12-44 Blood monocytes/100 leukocytes 7 % 0-12 Automated blood eosinophils/100 leukocytes 0 % 0-10 Automated blood basophils/100 leukocytes 0 % 0-10 Blood neutrophils automated count (number/volume) 7.5 10*3 1.8-7.8 Blood lymphocytes automated count (number/volume) 1.2 10*3 1.0-4.0 Blood monocytes automated count (number/volume) 0.7 10*3 0.0-1.0 Automated eosinophil count 0.0 10*3/uL 0.0-0.3 Automated blood basophil count (count/volume) 0.0 10*3/uL 0.0-0.1 Complete urinalysis with reflex to culture - 05/25/18 13:09 Urine color determination YELLOW NRG Urine clarity determination SLIGHTLY CLOUDY NRG Urine pH measurement by test strip 7 5-9 Specific gravity of urine by test strip 1.010 1.016- 1.022 Urine protein assay by test strip, semi-quantitative 2+ NEGATIVE Urine glucose detection by automated test strip NEGATIVE NEGATIVE Erythrocytes detection in urine sediment by light microscopy 3+ NEGATIVE Urine ketones detection by automated test strip 4+ NEGATIVE Urine nitrite detection by test strip NEGATIVE NEGATIVE Urine total bilirubin detection by test strip NEGATIVE NEGATIVE Urine urobilinogen measurement by automated test strip (mass/volume) 1 mg/dL NORMAL Urine leukocyte esterase detection by dipstick 1+ NEGATIVE Automated urine sediment erythrocyte count by microscopy (number/high power field) [HPF] NRG Automated urine sediment leukocyte count by microscopy (number/high power field ) [HPF] NRG Bacteria detection in urine sediment by light microscopy FEW NRG Squamous epithelial cells detection in urine sediment by light microscopy RARE NRG Crystals detection in urine sediment by light microscopy NONE NRG Casts detection in urine sediment by light microscopy NONE NRG Mucus detection in urine sediment by light microscopy NEGATIVE NRG Complete urinalysis with reflex to culture NO NRG Comprehensive metabolic panel - 05/25/18 13:09 Serum or plasma sodium measurement (moles/volume) 135 mmol/L 135-145 Serum or plasma potassium measurement (moles/volume) 2.9 mmol/L 3.6-5.0 Serum or plasma chloride measurement (moles/volume) 96 mmol/L 98-107 Carbon dioxide 26 mmol/L 21-32 Serum or plasma anion gap determination (moles/volume) 13 mmol/L 5-14 Serum or plasma urea nitrogen measurement (mass/volume) 20 mg/dL 7-18 Serum or plasma creatinine measurement (mass/volume) 0.59 mg/dL 0.60-1.30 Serum or plasma urea nitrogen/creatinine mass ratio 34 NRG Serum or plasma creatinine measurement with calculation of estimated glomerular filtration rate > NRG Serum or plasma glucose measurement (mass/volume) 92 mg/dL 70-105 Serum or plasma calcium measurement (mass/volume) 8.8 mg/dL 8.5-10.1 Serum or plasma total bilirubin measurement (mass/volume) 0.9 mg/dL 0.1-1.0 Serum or plasma alkaline phosphatase measurement (enzymatic activity/volume) 75 U/L 40-136 Serum or plasma aspartate aminotransferase measurement (enzymatic activity/ volume) 19 U/L 5-34 Serum or plasma alanine aminotransferase measurement (enzymatic activity/volume ) 13 U/L 0-55 Serum or plasma protein measurement (mass/volume) 6.5 g/dL 6.4-8.2 Serum or plasma albumin measurement (mass/volume) 3.9 g/dL 3.2-4.5 Magnesium - 05/25/18 13:09 Magnesium 1.7 mg/dL 1.8-2.4 Serum or plasma troponin i.cardiac measurement (mass/volume) - 05/25/18 13:09 Serum or plasma troponin i.cardiac measurement (mass/volume) < ng/ mL <0.30 Lipase - 05/25/18 13:09 Lipase 8 U/L 8-78 Serum or plasma C reactive protein measurement (mass/volume) - 05/25/18 13:09 Serum or plasma C reactive protein measurement (mass/volume) 1.55 mg /dL 0.00-0.50 Complete blood count (CBC) with automated white blood cell (WBC) differential - 05/26/18 05:38 Blood leukocytes automated count (number/volume) 8.2 10*3/uL 4.3-11.0 Blood erythrocytes automated count (number/volume) 4.44 10*6/uL 4.35-5.85 Venous blood hemoglobin measurement (mass/volume) 14.8 g/dL 11.5-16.0 Blood hematocrit (volume fraction) 42 % 35-52 Automated erythrocyte mean corpuscular volume 94 [foz_us] 80-99 Automated erythrocyte mean corpuscular hemoglobin (mass per erythrocyte) 33 pg 25-34 Automated erythrocyte mean corpuscular hemoglobin concentration measurement ( mass/volume) 36 g/dL 32-36 Automated erythrocyte distribution width ratio 14.3 % 10.0-14.5 Automated blood platelet count (count/volume) 169 10*3/uL 130-400 Automated blood platelet mean volume measurement 9.9 [foz_us] 7.4-10.4 Automated blood neutrophils/100 leukocytes 72 % 42-75 Automated blood lymphocytes/100 leukocytes 19 % 12-44 Blood monocytes/100 leukocytes 9 % 0-12 Automated blood eosinophils/100 leukocytes 0 % 0-10 Automated blood basophils/100 leukocytes 0 % 0-10 Blood neutrophils automated count (number/volume) 5.9 10*3 1.8-7.8 Blood lymphocytes automated count (number/volume) 1.5 10*3 1.0-4.0 Blood monocytes automated count (number/volume) 0.7 10*3 0.0-1.0 Automated eosinophil count 0.0 10*3/uL 0.0-0.3 Automated blood basophil count (count/volume) 0.0 10*3/uL 0.0-0.1 Whole blood basic metabolic panel - 05/26/18 05:38 Serum or plasma sodium measurement (moles/volume) 133 mmol/L 135-145 Serum or plasma potassium measurement (moles/volume) 4.5 mmol/L 3.6-5.0 Serum or plasma chloride measurement (moles/volume) 102 mmol/L 98-107 Carbon dioxide 25 mmol/L 21-32 Serum or plasma anion gap determination (moles/volume) 6 mmol/L 5-14 Serum or plasma urea nitrogen measurement (mass/volume) 10 mg/dL 7-18 Serum or plasma creatinine measurement (mass/volume) 0.58 mg/dL 0.60-1.30 Serum or plasma urea nitrogen/creatinine mass ratio 17 NRG Serum or plasma creatinine measurement with calculation of estimated glomerular filtration rate > NRG Serum or plasma glucose measurement (mass/volume) 76 mg/dL 70-105 Serum or plasma calcium measurement (mass/volume) 8.1 mg/dL 8.5-10.1 Magnesium - 05/26/18 05:38 Magnesium 2.2 mg/dL 1.8-2.4 Capillary blood glucose measurement by glucometer (mass/volume) - 05/26/18 10: 26 Capillary blood glucose measurement by glucometer (mass/volume) 95 mg/dL 70-110 Encounters ACCT No. Visit Date/Time Discharge Status Pt. Type Provider Facility Loc./Unit Complaint [id number] 06/02/2018 09:48:00 06/02/2018 12:51:00 DIS Outpatient SAI COOK MD [facility] ENDO HX CROHNS, DIARRHEA [id number] 05/25/2018 15:20:00 05/26/2018 15:25:00 DIS Inpatient DARCI MATIAS MD [facility] 4TH DEHYDRATION,ABD PAIN [id number] 11/21/2017 09:06:00 11/21/2017 19:25:00 DIS Outpatient Aimee LEWIS MD [facility] CATH DYSPENIA,CAD [id number] 11/19/2017 09:07:00 11/19/2017 23:59:59 CLS Outpatient Aimee LEWIS MD [facility] CARD [id number] 11/18/2017 08:41:00 11/18/2017 23:59:59 CLS Outpatient Aimee LEWIS MD [facility] CARD R94.39 I25.10 I25.2 R93.1 [id number] 11/14/2017 07:45:00 11/14/2017 23:59:59 CLS Outpatient Aimee LEWIS MD [facility] CARD E78.5 HYPERLIPIDEMIA [id number] 11/13/2017 09:49:00 11/13/2017 23:59:59 CLS Outpatient Aimee LEWIS MD [facility] CARD I25.10 CAD [id number] 10/03/2017 06:33:00 10/03/2017 15:00:00 DIS Outpatient Aimee LEWIS MD [facility] CATH SEVERE LIFESTYLE LIMITED CLAUDICATION, ABN SAHRA. [id number] 05/20/2016 16:02:00 05/21/2016 13:25:00 DIS Inpatient SINDY GALE DO [facility] ICU ACUTE NARCOTIC OVERDOSE [id number] 01/16/2016 13:12:00 01/16/2016 14:34:00 DIS Emergency KEVON FIERRO DO [facility] ER COUGH DIARRHEA [id number] 08/25/2013 19:24:00 08/27/2013 15:30:00 DIS Inpatient Kassy SAAVEDRA, [facility] MED [id number] 07/06/2016 07:06:00 Document Registration [id number] 04/28/2018 13:40:00 04/28/2018 23:59:59 CLS Outpatient LILLIAN SAAVEDRA, [facility]
[2018-08-03 00:33] LABS: BASOPHILS % (AUTO) 0 % (0-10); EOSINOPHILS % (AUTO) 0 % (0-10); HEMATOCRIT 41 % (35-52); HEMOGLOBIN 13.5 G/DL (11.5-16.0); LYMPHOCYTES # (AUTO) 0.7 X 10^3 (1.0-4.0); LYMPHOCYTES % (AUTO) 4 % (12-44); MEAN CORPUSCULAR HEMOGLOBIN 32 PG (25-34); MEAN CORPUSCULAR HGB CONC 33 G/DL (32-36); MEAN CORPUSCULAR VOLUME 97 FL (80-99); MEAN PLATELET VOLUME 10.5 FL (7.4-10.4); MONOCYTES # (AUTO) 0.8 X 10^3 (0.0-1.0); MONOCYTES % (AUTO) 5 % (0-12); NEUTROPHILS # (AUTO) 15.9 X 10^3 (1.8-7.8); NEUTROPHILS % (AUTO) 91 % (42-75); PLATELET COUNT 170 10^3/uL (130-400); RED CELL DISTRIBUTION WIDTH 14.7 % (10.0-14.5); WHITE BLOOD COUNT 17.4 10^3/uL (4.3-11.0)
[2018-08-03 00:40] LABS: INR 1.2 (0.8-1.4); PROTHROMBIN TIME PATIENT 14.7 SEC (12.2-14.7)
[2018-08-03 00:46] LABS: BILIRUBIN,URINE NEGATIVE (NEGATIVE); CLARITY,URINE CLEAR; COLOR,URINE YELLOW; GLUCOSE, URINE (UA) NEGATIVE (NEGATIVE); KETONES,URINE NEGATIVE (NEGATIVE); LEUKOCYTE ESTERASE ,URINE NEGATIVE (NEGATIVE); NITRITE,URINE NEGATIVE (NEGATIVE); PH,URINE 7 (5-9); PROTEIN,URINE NEGATIVE (NEGATIVE); UROBILINOGEN,URINE NORMAL (NORMAL)
[2018-08-03 00:48] LABS: ALANINE AMINOTRANSFERASE 14 U/L (0-55); ALBUMIN 3.2 GM/DL (3.2-4.5); ALKALINE PHOSPHATASE 75 U/L (40-136); BILIRUBIN,TOTAL 0.3 MG/DL (0.1-1.0); BUN/CREATININE RATIO 21; CALCIUM 8.2 MG/DL (8.5-10.1); CARBON DIOXIDE 28 MMOL/L (21-32); CHLORIDE 99 MMOL/L (98-107); CREATININE SERUM 0.92 MG/DL (0.60-1.30); GFR ESTIMATED > 60; GLUCOSE 104 MG/DL (70-105); MAGNESIUM 2.3 MG/DL (1.8-2.4); POTASSIUM 4.4 MMOL/L (3.6-5.0); SODIUM 136 MMOL/L (135-145); TOTAL PROTEIN 6.2 GM/DL (6.4-8.2)
[2018-08-03 00:57] LABS: AMPHETAMINE SCREEN, URINE NEGATIVE (NEGATIVE); BARBITURATE SCREEN URINE NEGATIVE (NEGATIVE); BENZODIAZEPINES SCREEN URINE POSITIVE (NEGATIVE); CANNABINOID SCREEN, URINE NEGATIVE (NEGATIVE); COCAINE SCREEN URINE NEGATIVE (NEGATIVE); METHADONE STAT NEGATIVE (NEGATIVE); METHAMPHETAMINE SCREEN URINE S NEGATIVE (NEGATIVE); OPIATE SCREEN URINE POSITIVE (NEGATIVE); OXYCODONE STAT NEGATIVE (NEGATIVE); PROPOXYPHENE STAT NEGATIVE (NEGATIVE); TRICYCLIC ANTIDEPRESSANTS SCRE NEGATIVE (NEGATIVE)
[2018-08-03 01:01] LABS: BACTERIA,URINE TRACE /HPF; SQUAMOUS EPITHELIAL CELL,UR RARE /HPF; WBC,URINE RARE /HPF
[2018-08-03 01:03] LABS: TSH (THYROID ANALYZER) 0.87 UIU/ML (0.35-4.94)
[2018-08-03 01:23] LABS: LYMPHOCYTES % (MANUAL) 5 %; MONOCYTES % (MANUAL) 6 %; NEUTROPHILS % (MANUAL) 89 %
[2018-08-03] MEDS ORDERED: fentaNYL INJECTION 100 MCG/2 ML AMP IVP STA (01:48)
[2018-08-03] MEDS ORDERED: LORazepam INJ 2 MG/ML (ATIVAN) VIAL IV PRN (03:45)
[2018-08-03] MEDS ORDERED: ONDANSETRON 4 MG/2 ML (SDV) Z0FRAN IV PRN (03:45)
[2018-08-03] MEDS: D5 1/2 NS W/KCL 20 MEQ/L 1,000 ML IV SCH ×2 (04:18→11:07)
[2018-08-03] MEDS: fentaNYL INJECTION 100 MCG/2 ML AMP IV PRN ×2 (04:18→10:14)
[2018-08-03] MEDS ORDERED: RT-ALBUTEROL SULF 2.5 MG/3 ML PRE-MIX VIAL INH PRN ×2 (04:45→15:15)
[2018-08-03 06:08] LABS: BASOPHILS % (AUTO) 0 % (0-10); EOSINOPHILS # (AUTO) 0.1 10^3/uL (0.0-0.3); EOSINOPHILS % (AUTO) 0 % (0-10); HEMATOCRIT 40 % (35-52); HEMOGLOBIN 13.2 G/DL (11.5-16.0); LYMPHOCYTES # (AUTO) 1.1 X 10^3 (1.0-4.0); LYMPHOCYTES % (AUTO) 7 % (12-44); MEAN CORPUSCULAR HEMOGLOBIN 32 PG (25-34); MEAN CORPUSCULAR HGB CONC 33 G/DL (32-36); MEAN CORPUSCULAR VOLUME 98 FL (80-99); MEAN PLATELET VOLUME 10.7 FL (7.4-10.4); MONOCYTES # (AUTO) 0.8 X 10^3 (0.0-1.0); MONOCYTES % (AUTO) 6 % (0-12); NEUTROPHILS # (AUTO) 12.7 X 10^3 (1.8-7.8); NEUTROPHILS % (AUTO) 87 % (42-75); PLATELET COUNT 155 10^3/uL (130-400); RED BLOOD COUNT 4.11 10^6/uL (4.35-5.85); RED CELL DISTRIBUTION WIDTH 14.6 % (10.0-14.5); WHITE BLOOD COUNT 14.7 10^3/uL (4.3-11.0)
--- NOTE | 2018-08-03 06:29 | Diagnostic Imaging Report ---
PROCEDURE: CT head and CT cervical spine without contrast. TECHNIQUE: Multiple contiguous axial images were obtained through the brain and cervical spine without the use of intravenous contrast. Sagittal and coronal reformations through the cervical spine were then performed. INDICATION: Head and neck pain after fall. FINDINGS: There is prominence of the ventricles and sulci. There is mild chronic microvascular ischemic disease. There is some focal lacunar infarct in the region of the internal capsule on the left. There is no hydrocephalus. There is no midline shift. There is no intracranial mass, hemorrhage or extra-axial fluid collection. Calvarium is intact. Sinuses and mastoid air cells are clear. The alignment of the cervical spine is normal. The vertebral body heights are well-maintained. There are degenerative changes. There is no fracture or traumatic subluxation. There is some posterior facet arthropathy. The prevertebral soft tissues are within normal limits. Lung apices are clear. IMPRESSION: No acute intracranial abnormality. There is some atrophy and mild chronic microvascular ischemic disease. Mild cervical spondylosis without acute fracture or traumatic subluxation Dictated by: Dictated on workstation # [id number]
[2018-08-03 06:37] LABS: ALANINE AMINOTRANSFERASE 12 U/L (0-55); ALKALINE PHOSPHATASE 71 U/L (40-136); BILIRUBIN,TOTAL 0.3 MG/DL (0.1-1.0); BUN/CREATININE RATIO 18; CALCIUM 8.1 MG/DL (8.5-10.1); CARBON DIOXIDE 27 MMOL/L (21-32); CHLORIDE 102 MMOL/L (98-107); GFR ESTIMATED > 60; GLUCOSE 128 MG/DL (70-105); POTASSIUM 4.5 MMOL/L (3.6-5.0); SODIUM 137 MMOL/L (135-145)
--- NOTE | 2018-08-03 07:21 | Diagnostic Imaging Report ---
EXAMINATION: Chest radiograph, portable AP view. DATE: August 03, 2018 at 0137 hours. INDICATION: 68-year-old female, fall. Chest pain. COMPARISON: May 25, 2018. FINDINGS: Stable overall appearance of the cardiomediastinal silhouette. There are aortic calcifications. There is no identified pneumothorax. There is no large pleural effusion. There are coarse interstitial lung opacities which appear essentially unchanged since the comparison exam. The lungs appear hyperexpanded. There is no identified interval focal airspace consolidation. IMPRESSION: 1. Changes of chronic lung disease without identified acute cardiopulmonary abnormality. Dictated by: Dictated on workstation # [id number]
--- NOTE | 2018-08-03 07:21 | Diagnostic Imaging Report ---
Indication: Pain after fall. Findings: There is an intertrochanteric fracture of the right femur. Bony pelvis is intact. Left hip is intact. There are degenerative changes in the lumbar spine. Soft tissues are unremarkable. Impression: Intertrochanteric fracture of the right femur. Dictated by: Dictated on workstation # [id number]
--- NOTE | 2018-08-03 07:21 | Diagnostic Imaging Report ---
Pain after fall. 4 views were obtained. Findings: Bones are osteopenic. No fracture or dislocation. Soft tissues are unremarkable. Impression: No acute fracture or dislocation. Dictated by: Dictated on workstation # [id number]
--- NOTE | 2018-08-03 07:23 | Diagnostic Imaging Report ---
EXAMINATION: Right femur, 2 views, 5 images. COMPARISON: None. HISTORY: 68-year-old female, fall. Right hip pain. FINDINGS: There is no identified right knee joint effusion. There is moderate to severe medial and lateral compartment joint space loss of the right knee. There is limited assessment of the patellofemoral compartment given the obliquity of positioning of the lateral view. There is a displaced right intertrochanteric femur fracture. The angle of the femoral neck axis relative to the femoral diaphysis measures 110 degrees. The crosstable lateral view is significantly limited. The right femoral head is not dislocated relative to the acetabulum. IMPRESSION: 1. Displaced right intertrochanteric femur fracture. Dictated by: Dictated on workstation # [id number]
[2018-08-03] MEDS ORDERED: LACTATED RINGERS 1,000 ML IV PRN (09:20)
[2018-08-03] MEDS ORDERED: proPOfol 200 MG/20 ML (DIPRIVAN) VIAL IV ONE (09:34)
[2018-08-03] MEDS ORDERED: SUCCINYLCHOLINE INJ 100 MG/5 ML SYR ONE (09:34)
[2018-08-03] MEDS ORDERED: ROCURONIUM 10 MG/ML 5 ML SYRINGE IV ONE (09:34)
[2018-08-03] MEDS ORDERED: LIDOCAINE PF 2% 2 ML (XYLOCAINE) VIAL ONE (09:34)
[2018-08-03] MEDS ORDERED: ONDANSETRON 4 MG/2 ML (SDV) Z0FRAN ONE (09:37)
[2018-08-03] MEDS ORDERED: SEVOFLURANE (ULTANE) 15 ML INHAL SOLN ONE (09:37)
[2018-08-03] MEDS ORDERED: fentaNYL INJECTION 100 MCG/2 ML AMP ONE (09:38)
[2018-08-03] MEDS ORDERED: MIDAZOLAM 2 MG/2 ML (VERSED) VIAL ONE (09:38)
--- NOTE | 2018-08-03 10:16 | History & Physicial ---
History of Present Illness History of Present Illness Reason for visit/HPI 68 yr old WF stumbled last night, fell and sustained a displaced R intertrochanteric hip fracture. she was unable to weightbear and she was admitted to the hospital for defininitive fixation. she has a cardiac history and has stents in place. she denies other sites of pain. she denies prior trauma. she understands the risks of surgery and wishes to proceed. Date of Admission Aug 03, 2018 at 01:45 Date Seen by a Provider: Aug 03, 2018 Time Seen by a Provider: 10:12 I consulted on this patient on 08/03/18 10:[address] Hernando Hairston DO Admitting Physician Sebastian Olsen MD Consult Dr. Allen Allergies and Home Medications Allergies Coded Allergies: acetaminophen (Verified Allergy, Unknown, 01/16/16) diphenhydramine (Verified Allergy, Unknown, 08/03/18) oxymorphone (Verified Allergy, Unknown, 08/03/18) varenicline (Verified Allergy, Unknown, 08/03/18) Home Medications Acetaminophen 500 Mg Tablet, 1,000 MG PO Q4H PRN for PAIN-MILD, (Reported) Albuterol Sulfate 18 Gm Hfa.aer.ad, 2 PUFF INH Q4H PRN for SHORTNESS OF BREATH, (Reported) Alprazolam 1 Mg Tablet, 1 MG PO TID PRN for ANXIETY, (Reported) Aspirin 325 Mg Tablet.dr, 325 MG PO DAILY, (Reported) Atorvastatin Calcium 40 Mg Tablet, 40 MG PO HS, (Reported) Clopidogrel Bisulfate 75 Mg Tablet, 75 MG PO DAILY, (Reported) Famotidine 20 Mg Tablet, 20 MG PO BID Prescribed by: SINDY GALE on 05/26/18 1448 Gabapentin 600 Mg Tablet, 600 MG PO TID, (Reported) Lisinopril 10 Mg Tablet, 10 MG PO DAILY, (Reported) Loperamide HCl 2 Mg Tablet, PO UD PRN for DIARRHEA, (Reported) Magnesium Oxide 400 Mg Tablet, 400 MG PO DAILY Prescribed by: SINDY GALE on 05/26/18 1448 Metoprolol Tartrate 50 Mg Tablet, 50 MG PO BID, (Reported) Morphine Sulfate 15 Mg Tablet.er, 15 MG PO Q12H, (Reported) Nitroglycerin 0.4 Mg Tab.subl, 0.4 MG SL UD PRN for CHEST PAIN, (Reported) Pantoprazole Sodium 40 Mg Tablet.dr, 40 MG PO DAILY Prescribed by: SAI COOK on 06/02/18 1145 Paroxetine HCl 20 Mg Tablet, 20 MG PO DAILY, (Reported) Potassium Chloride 10 Meq Tab.er.prt, 10 MEQ PO DAILY Prescribed by: SINDY GALE on 05/26/18 1448 Simethicone 125 Mg Tab.chew, 125-250 MG PO ACHS PRN for GAS, (Reported) Patient Home Medication List Home Medication List Reviewed: Yes Past Noewpdw-Xoegkr-Wqdxdf Hx Patient Social History Alcohol Use: Denies Use Recreational Drug Use: No Smoking Status: Current Everyday Smoker Type Used: Cigars, Cigarettes Physical Abuse Screen: No Sexual Abuse: No Recent Foreign Travel: No Contact w/other who traveled: No Recent Hopitalizations: No Recent Infectious Disease Expo: No Immunizations Up To Date Tetanus Booster (TDap): Unknown Date of Pneumonia Vaccine: Jul 05, 2017 Date of Influenza Vaccine: Jul 05, 2018 Seasonal Allergies Seasonal Allergies: No Surgeries Yes Cardiac, Coronary Stent, Hysterectomy Respiratory Yes Currently Using CPAP: No Currently Using BIPAP: No Cardiovascular Yes (STENTS--UNKNOWN NUMBER) Coronary Artery Disease, Heart Attack, Hypertension Neurological Yes (sleepwalking) Reproductive System Hx Reproductive Disorders: No Sexually Transmitted Disease: No HIV/AIDS: No Female Reproductive Disorders: Denies Genitourinary No Gastrointestinal Yes Colitis, Gastroesophageal Reflux, Crohns Disease Musculoskeletal Yes (RESTLESS LEGS, osteoarthritis) Chronic Back Pain Endocrine History of Endocrine Disorders: No HEENT History of HEENT Disorders: Yes (STATED SHE HAS TROUBLE SEEING THE MENU) Loss of Vision: Right Hearing Impairment: Denies Cancer Yes Skin, Ovarian Did You Recieve Any Treatments: Yes Type of Treatment: Surgical Intervention Cancer Comment: laser surgeries Psychosocial History of Psychiatric Problem: Yes (PANIC ATTACKS, night terrors) Behavioral Health Disorders: Sleep Difficulties, Anxiety, PTSD, Bipolar, Depression Integumentary History of Skin or Integumenta: Yes ("SKIN CANCER SPOTS") Blood Transfusions History of Blood Disorders: No (aplastic anemia) Family Medical History Family Hx: Psychosocial problem G8 SISTER Review of Systems Constitutional: no symptoms reported Physical Exam Vital Signs Vital Signs - First Documented 08/03/18 04:20 FiO2 28 Capillary Refill : Less Than 3 SecondsLess Than 3 Seconds Height, Weight, BMI Height: 5'0.00" Weight: 101lbs. 2.0oz. [id number]; 19.8 BMI Method:Stated General Appearance: No Apparent Distress Extremity: Other (RLE: Short and externally rotated) Neurologic/Psychiatric: Alert, Oriented x3 Assessment/Plan Assessment and Plan ASSESSMENT: R intertrochanteric hip fracture PLAN: Intramedullary piper R hip consult dr allen for medical management Admission Diagnosis Admission Status: Inpatient Order (span 2 midnights) Reason for Inpatient Admission: hip fracture medical management Clinical Quality Measures DVT/VTE Risk/Contraindication: Risk Factor Score Per Nursin RFS Level Per Nursing on Admit: 4+=Very High HERNANDO HAIRSTON DO Aug 03, 2018 10:16
--- NOTE | 2018-08-03 13:40 | Consultation ([facility]) ---
HPI History of Present Illness: Medical Consult for Ortho Service Patient has h/o COPD and tobacco use. States that she uses albuterol PRN. She has been a smoker for 40+ yrs. No recent PNA or lung infections CAD: Patient has had stents placed in the past. Extensive CAD. Recent Cath in Nov 2017. PVD: LE cath has been completed HTN: Controlled per patient on medications. HLD: On Statin Osteoarthritis Source: patient, family (Sister) Exam Limitations: no limitations Date seen by provider: Aug 03, 2018 Time Seen by Provider: 12:10 Attending Physician Sebastian Snyder MD PCP Sebastian nSyder MD Consult Date of Admission Aug 03, 2018 at 01:45 Home Medications Home Medications Reviewed patient Home Medication Reconciliation performed by pharmacy medication reconciliations imaging technician and/or nursing. Patients Allergies have been reviewed. Allergies Coded Allergies: acetaminophen (Verified Allergy, Unknown, 01/16/16) diphenhydramine (Verified Allergy, Unknown, 08/03/18) oxymorphone (Verified Allergy, Unknown, 08/03/18) varenicline (Verified Allergy, Unknown, 08/03/18) IMI-Mmufgv-Pjjaxr Hx Patient Social History Living Status: Lives with sister in [address] house Alcohol Use: Denies Use Recreational Drug Use: No Smoking Status: Current Everyday Smoker Type Used: Cigars, Cigarettes Recent Foreign Travel: No Contact w/other who traveled: No Recent Hopitalizations: No Recent Infectious Disease Expo: No Physical Abuse Screen: No Sexual Abuse: No Immunizations Up To Date Tetanus Booster (TDap): Unknown Date of Pneumonia Vaccine: Jul 05, 2017 Date of Influenza Vaccine: Jul 05, 2018 Past Medical History HTN CAD Asthma Tobacco use OA Family Medical History Family History: Psychosocial problem G8 SISTER Review of Systems ([facility]) Constitutional: no symptoms reported; No chills, No fever EENTM: no symptoms reported Respiratory: cough, phlegm, short of breath Cardiovascular: no symptoms reported; No chest pain, No edema, No palpitations Gastrointestinal: no symptoms reported; No abdominal pain, No constipation, No diarrhea, No nausea, No vomiting Genitourinary: no symptoms reported : No Musculoskeletal: joint pain (Right hip) Skin: no symptoms reported Psychiatric/Neurological: No Symptoms Reported Reviewed Test Results Reviewed Test Results Lab Laboratory Tests Test 08/03/18 00:20 08/03/18 00:32 08/03/18 05:47 Range/Units White Blood Count 17.4 H 14.7 H 4.3-11.0 10^3/uL Red Blood Count 4.20 L 4.11 L 4.35-5.85 10^6/uL Hemoglobin 13.5 13.2 11.5-16.0 G/DL Hematocrit 41 40 35-52 % Mean Corpuscular Volume 97 98 80-99 FL Mean Corpuscular Hemoglobin 32 32 25-34 PG Mean Corpuscular Hemoglobin Concent 33 33 32-36 G/DL Red Cell Distribution Width 14.7 H 14.6 H 10.0-14.5 % Platelet Count 170 155 130-400 10^3/uL Mean Platelet Volume 10.5 H 10.7 H 7.4-10.4 FL Neutrophils (%) (Auto) 91 H 87 H 42-75 % Lymphocytes (%) (Auto) 4 L 7 L 12-44 % Monocytes (%) (Auto) 5 6 0-12 % Eosinophils (%) (Auto) 0 0 0-10 % Basophils (%) (Auto) 0 0 0-10 % Neutrophils # (Auto) 15.9 H 12.7 H 1.8-7.8 X 10^3 Lymphocytes # (Auto) 0.7 L 1.1 1.0-4.0 X 10^3 Monocytes # (Auto) 0.8 0.8 0.0-1.0 X 10^3 Eosinophils # (Auto) 0.0 0.1 0.0-0.3 10^3/uL Basophils # (Auto) 0.0 0.0 0.0-0.1 10^3/uL Neutrophils % (Manual) 89 % Lymphocytes % (Manual) 5 % Monocytes % (Manual) 6 % Prothrombin Time 14.7 12.2-14.7 SEC INR Comment 1.2 0.8-1.4 Activated Partial Thromboplast Time 34 24-35 SEC Sodium Level 136 137 135-145 MMOL/L Potassium Level 4.4 4.5 3.6-5.0 MMOL/L Chloride Level 99 102 98-107 MMOL/L Carbon Dioxide Level 28 27 21-32 MMOL/L Anion Gap 9 8 5-14 MMOL/L Blood Urea Nitrogen 19 H 14 7-18 MG/DL Creatinine 0.92 0.80 0.60-1.30 MG/DL Estimat Glomerular Filtration Rate > 60 > 60 BUN/Creatinine Ratio 21 18 Glucose Level 104 128 H 70-105 MG/DL Calcium Level 8.2 L 8.1 L 8.5-10.1 MG/DL Corrected Calcium 8.8 8.9 8.5-10.1 MG/DL Magnesium Level 2.3 1.8-2.4 MG/DL Total Bilirubin 0.3 0.3 0.1-1.0 MG/DL Aspartate Amino Transf (AST/SGOT) 27 24 5-34 U/L Alanine Aminotransferase (ALT/SGPT) 14 12 0-55 U/L Alkaline Phosphatase 75 71 40-136 U/L Total Protein 6.2 L 6.0 L 6.4-8.2 GM/DL Albumin 3.2 3.0 L 3.2-4.5 GM/DL TSH [place] Testing 0.87 0.35-4.94 UIU/ML Serum Alcohol < 10 <10 MG/DL Urine Color YELLOW Urine Clarity CLEAR Urine pH 7 5-9 Urine Specific [place] 1.010 L 1.016-1.022 Urine Protein NEGATIVE NEGATIVE Urine Glucose (UA) NEGATIVE NEGATIVE Urine Ketones NEGATIVE NEGATIVE Urine Nitrite NEGATIVE NEGATIVE Urine Bilirubin NEGATIVE NEGATIVE Urine Urobilinogen NORMAL NORMAL MG/DL Urine Leukocyte Esterase NEGATIVE NEGATIVE Urine RBC (Auto) 1+ H NEGATIVE Urine RBC NONE /HPF Urine WBC RARE /HPF Urine Squamous Epithelial Cells RARE /HPF Urine Crystals NONE /LPF Urine Bacteria TRACE /HPF Urine Casts NONE /LPF Urine Mucus NEGATIVE /LPF Urine Culture Indicated NO Urine Opiates Screen POSITIVE H NEGATIVE Urine Oxycodone Screen NEGATIVE NEGATIVE Urine Methadone Screen NEGATIVE NEGATIVE Urine Propoxyphene Screen NEGATIVE NEGATIVE Urine Barbiturates Screen NEGATIVE NEGATIVE Ur Tricyclic Antidepressants Screen NEGATIVE NEGATIVE Urine Phencyclidine Screen NEGATIVE NEGATIVE Urine Amphetamines Screen NEGATIVE NEGATIVE Urine Methamphetamines Screen NEGATIVE NEGATIVE Urine Benzodiazepines Screen POSITIVE H NEGATIVE Urine Cocaine Screen NEGATIVE NEGATIVE Urine Cannabinoids Screen NEGATIVE NEGATIVE Physical Exam-([facility]C) Physical Exam Vital Signs VS - Last 72 Hours, by Label 08/03/18 08/03/18 08/03/18 08/03/18 00:09 00:09 02:58 03:00 Temp 98.3 98.3 98.3 Pulse 92 92 86 Resp 17 17 17 B/P (MAP) 108/63 (78) 108/63 (78) 102/67 (78) Pulse Ox 92 92 92 94 O2 Delivery Nasal Cannula Nasal Cannula O2 Flow Rate 4.00 08/03/18 08/03/18 08/03/18 08/03/18 03:00 04:20 05:00 07:55 Temp 97.3 97.5 Pulse 91 86 80 Resp 17 18 B/P (MAP) 100/59 (73) 100/68 (79) Pulse Ox 92 98 O2 Delivery Nasal Cannula Nasal Cannula Nasal Cannula O2 Flow Rate 4.00 4.00 2.00 FiO2 28 08/03/18 08/03/18 08/03/18 08/03/18 08:00 08:24 10:00 12:00 Temp 97.5 98.4 98.9 Pulse 90 91 100 Resp 16 16 16 B/P (MAP) 119/60 (79) 134/85 (101) 174/77 (109) Pulse Ox 90 98 92 98 O2 Delivery Nasal Cannula Nasal Cannula Nasal Cannula Nasal Cannula O2 Flow Rate 4.00 4.00 4.00 4.00 08/03/18 08/03/18 08/03/18 08/03/18 13:00 13:02 16:30 16:30 Temp 100.2 99.3 Pulse 101 86 Resp 18 12 B/P (MAP) 148/70 (96) 108/54 (72) Pulse Ox 95 92 96 96 O2 Delivery Nasal Cannula Nasal Cannula Nasal Cannula Nasal Cannula O2 Flow Rate 4.00 2.00 3.00 3.00 08/03/18 08/03/18 08/03/18 17:00 18:00 19:17 Pulse 90 90 Resp 14 14 B/P (MAP) 112/60 (77) 124/54 (77) Pulse Ox 93 96 98 O2 Delivery Nasal Cannula Nasal Cannula Nasal Cannula O2 Flow Rate 3.00 3.00 3.00 Capillary Refill : Less Than 3 SecondsLess Than 3 Seconds General Appearance: WD/WN, no apparent distress Respiratory: chest non-tender, normal breath sounds, no respiratory distress, wheezing (diffuse in all lung camp, Normal work of breathing) Cardiovascular: regular rate, rhythm, no murmur Gastrointestinal: normal bowel sounds, non tender, soft, no organomegaly Extremities: other (Right hip pain) 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, no motor/sensory deficits, alert, normal mood/affect, oriented x 3 Skin: normal color, warm/dry Lymphatic: no adenopathy Assessment/Plan Assessment/Plan (1) Hip fracture, right Status: Acute Assessment & Plan: - Managed by Ortho Qualifiers: Qualified Codes: S72.001A - Fracture of unspecified part of neck of right femur, initial encounter for closed fracture (2) CAD (coronary artery disease) Status: Chronic Assessment & Plan: - Holding anti-platelet meds for surgery, will restart when ok with surgery Qualifiers: Qualified Codes: I25.118 - Atherosclerotic heart disease of habematolel coronary artery with other forms of angina pectoris (3) Asthma Status: Chronic Assessment & Plan: - Start MAT protocol, Flutter valve at surgery Qualifiers: Qualified Codes: J45.30 - Mild persistent asthma, uncomplicated (4) HTN (hypertension) Status: Chronic Assessment & Plan: - Will hold BP meds after surgery and restart as needed Qualifiers: Qualified Codes: I10 - Essential (primary) hypertension (5) Chronic pain Status: Chronic Assessment & Plan: - Patient will likely need increased pain medication after surgery due to tolerance Qualifiers: Qualified Codes: G89.4 - Chronic pain syndrome (6) Tobacco abuse Status: Chronic Assessment & Plan: - Discussed the importance of cessation (7) DVT prophylaxis Status: Acute Assessment & Plan: - Lovenox to start tomorrow if ok surgery Clinical Quality Measures DVT/VTE Risk/Contraindication: Risk Factor Score Per Nursin RFS Level Per Nursing on Admit: 4+=Very High Copy Copies To 1: SEBASTIAN SNYDER MD, HOLLY R MD Aug 03, 2018 1:40 pm
--- NOTE | 2018-08-03 14:13 | Consultation-Cardiology ---
HPI-Cardiology Cardiology Consultation Date of Consultation 08/03/18 Date of Admission Time Seen by Provider: 14:05 Indication: chest pain HPI 68 years old lady with extensive coronary artery disease which would be described below. History of myocardial infarction, hypertension and COPD. Sustained a fall resulted in a fracture of her right hip, she was scheduled for hip surgery today. She started having some chest pain earlier today that reported that has improved spontaneously. Did not take any nitroglycerin today. She usually uses nitroglycerin for chest pain. Currently having hip pain. I was called for preoperative cardiac evaluation, patient is in the preop area, leading down comfortably, denied any active chest pain. No shortness of breath. Still an active smoker. No palpitation or syncope. Home Medications & Allergies Allergies: Coded Allergies: acetaminophen (Verified Allergy, Unknown, 01/16/16) diphenhydramine (Verified Allergy, Unknown, 08/03/18) oxymorphone (Verified Allergy, Unknown, 08/03/18) varenicline (Verified Allergy, Unknown, 08/03/18) Home Medication List Reviewed: Yes LKU-Jwpuaz-Wkzprg Hx Patient Social History Living Status: Lives with sister in 1 [address] house Alcohol Use: Denies Use Recreational Drug Use: No Smoking Status: Current Everyday Smoker Type Used: Cigars, Cigarettes Recent Foreign Travel: No Recent Infectious Disease Expo: No Recent Hopitalizations: No Physical Abuse Screen: No Sexual Abuse: No Immunizations Up To Date Tetanus Booster (TDap): Unknown Date of Pneumonia Vaccine: Jul 05, 2017 Date of Influenza Vaccine: Jul 05, 2018 Past Medical History Past medical history as described below Family Medical History Family History: Psychosocial problem G8 SISTER Review of Systems Constitutional: see HPI EENTM: see HPI, no symptoms reported Respiratory: see HPI, dyspnea on exertion Cardiovascular: see HPI, chest pain Gastrointestinal: no symptoms reported, see HPI Genitourinary: no symptoms reported, see HPI Musculoskeletal: see HPI, back pain, joint pain (right hip pain) Skin: see HPI Psychiatric/Neurological: No Symptoms Reported, See HPI Reviewed Test Results Reviewed Test Results Lab Laboratory Tests Test 08/03/18 00:20 08/03/18 00:32 08/03/18 05:47 Range/Units White Blood Count 17.4 H 14.7 H 4.3-11.0 10^3/uL Red Blood Count 4.20 L 4.11 L 4.35-5.85 10^6/uL Hemoglobin 13.5 13.2 11.5-16.0 G/DL Hematocrit 41 40 35-52 % Mean Corpuscular Volume 97 98 80-99 FL Mean Corpuscular Hemoglobin 32 32 25-34 PG Mean Corpuscular Hemoglobin Concent 33 33 32-36 G/DL Red Cell Distribution Width 14.7 H 14.6 H 10.0-14.5 % Platelet Count 170 155 130-400 10^3/uL Mean Platelet Volume 10.5 H 10.7 H 7.4-10.4 FL Neutrophils (%) (Auto) 91 H 87 H 42-75 % Lymphocytes (%) (Auto) 4 L 7 L 12-44 % Monocytes (%) (Auto) 5 6 0-12 % Eosinophils (%) (Auto) 0 0 0-10 % Basophils (%) (Auto) 0 0 0-10 % Neutrophils # (Auto) 15.9 H 12.7 H 1.8-7.8 X 10^3 Lymphocytes # (Auto) 0.7 L 1.1 1.0-4.0 X 10^3 Monocytes # (Auto) 0.8 0.8 0.0-1.0 X 10^3 Eosinophils # (Auto) 0.0 0.1 0.0-0.3 10^3/uL Basophils # (Auto) 0.0 0.0 0.0-0.1 10^3/uL Neutrophils % (Manual) 89 % Lymphocytes % (Manual) 5 % Monocytes % (Manual) 6 % Prothrombin Time 14.7 12.2-14.7 SEC INR Comment 1.2 0.8-1.4 Activated Partial Thromboplast Time 34 24-35 SEC Sodium Level 136 137 135-145 MMOL/L Potassium Level 4.4 4.5 3.6-5.0 MMOL/L Chloride Level 99 102 98-107 MMOL/L Carbon Dioxide Level 28 27 21-32 MMOL/L Anion Gap 9 8 5-14 MMOL/L Blood Urea Nitrogen 19 H 14 7-18 MG/DL Creatinine 0.92 0.80 0.60-1.30 MG/DL Estimat Glomerular Filtration Rate > 60 > 60 BUN/Creatinine Ratio 21 18 Glucose Level 104 128 H 70-105 MG/DL Calcium Level 8.2 L 8.1 L 8.5-10.1 MG/DL Corrected Calcium 8.8 8.9 8.5-10.1 MG/DL Magnesium Level 2.3 1.8-2.4 MG/DL Total Bilirubin 0.3 0.3 0.1-1.0 MG/DL Aspartate Amino Transf (AST/SGOT) 27 24 5-34 U/L Alanine Aminotransferase (ALT/SGPT) 14 12 0-55 U/L Alkaline Phosphatase 75 71 40-136 U/L Total Protein 6.2 L 6.0 L 6.4-8.2 GM/DL Albumin 3.2 3.0 L 3.2-4.5 GM/DL TSH [place] Testing 0.87 0.35-4.94 UIU/ML Serum Alcohol < 10 <10 MG/DL Urine Color YELLOW Urine Clarity CLEAR Urine pH 7 5-9 Urine Specific [place] 1.010 L 1.016-1.022 Urine Protein NEGATIVE NEGATIVE Urine Glucose (UA) NEGATIVE NEGATIVE Urine Ketones NEGATIVE NEGATIVE Urine Nitrite NEGATIVE NEGATIVE Urine Bilirubin NEGATIVE NEGATIVE Urine Urobilinogen NORMAL NORMAL MG/DL Urine Leukocyte Esterase NEGATIVE NEGATIVE Urine RBC (Auto) 1+ H NEGATIVE Urine RBC NONE /HPF Urine WBC RARE /HPF Urine Squamous Epithelial Cells RARE /HPF Urine Crystals NONE /LPF Urine Bacteria TRACE /HPF Urine Casts NONE /LPF Urine Mucus NEGATIVE /LPF Urine Culture Indicated NO Urine Opiates Screen POSITIVE H NEGATIVE Urine Oxycodone Screen NEGATIVE NEGATIVE Urine Methadone Screen NEGATIVE NEGATIVE Urine Propoxyphene Screen NEGATIVE NEGATIVE Urine Barbiturates Screen NEGATIVE NEGATIVE Ur Tricyclic Antidepressants Screen NEGATIVE NEGATIVE Urine Phencyclidine Screen NEGATIVE NEGATIVE Urine Amphetamines Screen NEGATIVE NEGATIVE Urine Methamphetamines Screen NEGATIVE NEGATIVE Urine Benzodiazepines Screen POSITIVE H NEGATIVE Urine Cocaine Screen NEGATIVE NEGATIVE Urine Cannabinoids Screen NEGATIVE NEGATIVE Physical Exam Vital Signs Vital Signs - First Documented 08/03/18 04:20 FiO2 28 Capillary Refill : Less Than 3 SecondsLess Than 3 Seconds Height, Weight, BMI Height: 5'0.00" Weight: 101lbs. 2.0oz. 45.661540xc; 19.8 BMI Method:Stated General Appearance: WD/WN, Moderate Distress Eyes: Bilateral Eye Normal Inspection, Bilateral Eye PERRL, Bilateral Eye EOMI HEENT: PERRL/EOMI, TMs Normal, Normal ENT Inspection, Pharynx Normal Neck: Full Range of Motion, Normal Inspection, Non Tender, Supple, Carotid Bruit Respiratory: Chest Non Tender, Lungs Clear, Normal Breath Sounds, No Accessory Muscle Use, No Respiratory Distress Cardiovascular: Regular Rate, Rhythm, No Edema, No Gallop, No JVD, Normal Peripheral Pulses, Systolic Murmur Gastrointestinal: Normal Bowel Sounds, No Organomegaly, No Pulsatile Mass, Non Tender, Soft Back: Normal Inspection, No CVA Tenderness, No Vertebral Tenderness Extremity: Normal Capillary Refill, Normal Inspection, No Pedal Edema, Other ( right hip fracture) Neurologic/Psychiatric: Alert, Oriented x3, No Motor/Sensory Deficits, Normal Mood/Affect Skin: Normal Color, Warm/Dry Lymphatic: No Adenopathy A/P-Cardiology Admission Diagnosis Chest pain Coronary artery disease Hypertension Hyperlipidemia Hip fracture Assessment/Plan Coronary artery disease, history of old myocardial infarction with multiple stents in the past, in 2000 she had proximal and distal circumflex stent 3.013 and 2.513 done in [place]. Had a cardiac catheterization done by Dr. Brooke in November 2017 which showed mild ostial left main coronary artery stenosis, LAD had patent stent with mild diffuse disease, circumflex artery has patent first obtuse marginal artery stent and after the first obtuse marginal branch in the mid circumflex there is a stent which has severe in-stent restenosis and distal to the first stent there is another stent that is occluded, failed attempt to intervention at that time. Patient had moderate diffuse disease in the right coronary artery that was treated medically. Patient had mild apical hypokinesis with ejection fraction 45-50 percent. Recurrent chest pain, treated conservatively for which she takes nitroglycerin sublingual Shortness of breath, history of COPD. Peripheral arterial disease, claudication, peripheral angiogram was done in September 2017 which showed [id number] disease in the distal abdominal aorta, mild to moderate disease diffusely down to the trifurcation with no obstructive disease Hypertension, history of borderline low blood pressure. Monitor blood pressure Hyperlipidemia, maintained on statin Pulmonary hypertension Valvular heart disease with moderate mitral regurgitation, moderate to severe tricuspid regurgitation Tobaccoism, still an active smoker. Right hip surgery for surgical intervention by orthogonal Preoperative cardiac evaluation, overall patient is considered at high risk for perioperative cardiovascular complications, she has extensive coronary artery disease and chronic stable angina controlled by sublingual nitroglycerin, today her chest pain episode has resolved without nitroglycerin, EKG did not show any acute changes, has poor R-wave progression in the anterior leads. She took her aspirin and Plavix yesterday. Overall she is considered at high risk for perioperative cardiovascular complications, decision regarding the surgery, risks versus benefits is deferred to the surgeon, postoperative monitoring in the intensive care unit is recommended Clinical Quality Measures DVT/VTE Risk/Contraindication: Risk Factor Score Per Nursin RFS Level Per Nursing on Admit: 4+=Very High SAMANTHA OCONNOR MD Aug 03, 2018 14:13
[2018-08-03] MEDS ORDERED: morphine INJ 10 MG/ML 1ML (SYR OR VIAL) ONE (14:27)
[2018-08-03] MEDS ORDERED: PHENYLEPHRINE 100 MCG/ML 10 ML (ANESTHESIA) SYR ONE (14:30)
[2018-08-03] MEDS ORDERED: GLYCOPYRROLATE 0.2 MG/ML (ROBINUL) 2 ML VIAL ONE (14:44)
[2018-08-03] MEDS ORDERED: NEOSTIGMINE 1 MG/ML 5 ML SYRINGE ONE (14:44)
[2018-08-03] MEDS ORDERED: ceFAZolin INJECTION 1,000 MG in NS (IVPB) 50 ML IV ONE (14:45)
[2018-08-03] MEDS ORDERED: LABETALOL HCL 20 MG/4 ML VIAL ONE (14:49)
[2018-08-03] MEDS ORDERED: morphine INJ 10 MG/ML 1ML (SYR OR VIAL) IVP ONE (15:00)
[2018-08-03] MEDS ORDERED: RT-ALBUTEROL HFA (VENTOLIN) PER PUFF IH ONE (15:00)
[2018-08-03] MEDS ORDERED: ONDANSETRON 4 MG/2 ML (SDV) Z0FRAN IVP PRN (15:00)
[2018-08-03] MEDS ORDERED: NITROGLYCERIN 0.4 MG SL TABS BTL 25'S SL PRN (15:15)
[2018-08-03] MEDS ORDERED: ACETAMINOPHEN 500 MG TAB (TYLENOL) PO PRN (15:45)
[2018-08-03] MEDS: 1/2 NS IV SOLUTION 1,000 ML IV SCH ×2 (17:20→21:29)
--- NOTE | 2018-08-03 20:22 | OPERATIVE REPORT ---
DATE OF SERVICE: 08/03/2018 SURGEON: Hernando Hairston DO PHARMACY TECHNICIAN ASSISTANT: ELIZABETH Nogueira. This is a medically necessary procedure. An healthcare administrative assistant was necessary for retraction of vital neurovascular structures. PREOPERATIVE DIAGNOSIS: Displaced intertrochanteric right hip fracture. POSTOPERATIVE DIAGNOSIS: Displaced intertrochanteric right hip fracture. PROCEDURE PERFORMED: Placement of intramedullary piper, right hip. COMPLICATIONS: None. SPECIMEN SENT: None. ESTIMATED BLOOD LOSS: Less than 50 mL. ANESTHESIA: General endotracheal tube anesthesia with local anesthetic. HISTORY OF PRESENT ILLNESS: The patient is a very pleasant 68-year-old female with a history of coronary artery disease who fell and experienced severe right hip pain, shortening of her right lower extremity. She presented to [facility] where x-rays demonstrated a displaced intertrochanteric hip fracture. Orthopedics was consulted for management of this. Cardiology was subsequently consulted by myself due to the patient's coronary history and presence of stents. Cardiology did risk stratify the patient as a high risk; however, she was too high risk to undergo any further stent placement. A discussion was held with the patient regarding the high risk nature of the procedure; however, it was also discussed with her very poor prognosis should this not be fixed. She wished to proceed. DESCRIPTION OF PROCEDURE: The patient was identified by name on wrist band in the preoperative holding area. Her operative site was signed, consent was signed. SCDs were placed. She was taken to the operating room theater and placed under general endotracheal tube anesthesia and transferred to the fracture table in the supine position. The unaffected left lower extremity was abducted and externally rotated out of the way. Her right lower extremity was placed in slight adduction and traction and internal rotation. AP and lateral x-ray demonstrated appropriate alignment of the fracture. Therefore, we prepped and draped the patient in the usual sterile fashion. A formal time out was conducted and a small incision was made over the greater trochanter. An introductory wire was then placed in the piriformis fossa and advanced through the intramedullary canal. I then reamed the outer cortex. I removed that wire and placed a ball-tip wire, I passed this in an intramedullary location down to the knee. At this point, I did not ream. I opted to place a size 11 short trochanteric fixation nail in an intramedullary location. I then utilizing the guide on the insertion handle made another small 1 inch incision over the lateral aspect of the proximal femur. I then advanced the aiming arm through that and onto the lateral cortex of the femur. I then passed a wire through the lateral cortex into the femoral neck and stopped it just short of subchondral bone. I measured the appropriate length for the helical blade. At this point, I reamed for that blade and then I passed the blade using the aiming arm through the lateral cortex and into the subchondral location of the femoral head. I then __locked__ _ that to rotation. At this point, I used the aiming arm to place a locking screw. I made a small 0.5 cm incision, drilled both cortices, measured the appropriate length and placed that screw. I then removed the aiming arm and the handle on the TFN. Final AP and lateral x-ray demonstrated appropriate position of this trochanteric fixation device. At this point, I irrigated and closed the wound in the usual layered fashion. I applied dressings. I took the patient in the supine position. She was taken to the ICU postoperatively per cardiology request where she will be closely monitored. I will have the patient out of bed on postop day #1. We will place her on DVT chemoprophylaxis and she will be weightbearing as tolerated. Job ID: [id number] DocumentID: [id number] Dictated Date: 08/03/2018 16:56:58 Gift Manager Date: 08/03/2018 20:21:49 Dictated By: HERNANDO HAIRSTON DO MTDNikkie
[2018-08-03] MEDS ORDERED: DOCUSATE SODIUM 100 MG (COLACE) CAP PO SCH (21:00)
[2018-08-03] MEDS: ceFAZolin INJECTION 1,000 MG in NS (IVPB) 50 ML IV SCH (21:29)
[2018-08-03] MEDS: GABAPENTIN 600 MG (NEURONTIN) TAB PO SCH (21:46)
[2018-08-03] MEDS: morphine ER 15 MG (MS CONTIN) TAB PO SCH (21:46)
[2018-08-03] MEDS: meTOprolol TARTRATE 50 MG (LOPRESSOR) TAB PO SCH (21:46)
[2018-08-03] MEDS: ATORVASTATIN 40 MG (LIPITOR) TABLET PO SCH (21:46)
[2018-08-03] MEDS: FAMOTIDINE 20 MG (PEPCID) TABLET PO SCH (21:46)
--- NOTE | 2018-08-03 21:50 | Diagnostic Imaging Report ---
INDICATION: Hip pain. EXAMINATION: Fluoroscopy at 12:28 p.m. Fluoroscopic assistance was provided for Dr. Hernando Hairston during his right hip procedure. 33.6 seconds of fluoroscopy time was utilized. AP and lateral spot films of the right hip were received from the OR. FINDINGS: There is now an intramedullary piper and an orthopedic fixation screw traversing the intertrochanteric fracture of the right femur seen on the prior exam performed earlier today. The orthopedic hardware appears to be in good position and the main fracture fragments are in near anatomic alignment. IMPRESSION: Fluoroscopic assistance was provided for Dr. Hairston. Dictated by: Dictated on workstation # [id number]
[2018-08-04] VITALS (24 sets, daily range): BP systolic 111–161; BP diastolic 59–92
[2018-08-04] MEDS: fentaNYL INJECTION 100 MCG/2 ML AMP IV PRN ×7 (01:53→23:52)
[2018-08-04 03:35] LABS: HEMOGLOBIN 12.8 G/DL (11.5-16.0); MEAN PLATELET VOLUME 10.5 FL (7.4-10.4); RED BLOOD COUNT 4.08 10^6/uL (4.35-5.85); RED CELL DISTRIBUTION WIDTH 14.7 % (10.0-14.5); WHITE BLOOD COUNT 11.2 10^3/uL (4.3-11.0)
[2018-08-04 04:18] LABS: ALANINE AMINOTRANSFERASE 13 U/L (0-55); ALKALINE PHOSPHATASE 74 U/L (40-136); BILIRUBIN,TOTAL 0.5 MG/DL (0.1-1.0); BUN/CREATININE RATIO 15; CALCIUM 8.3 MG/DL (8.5-10.1); CARBON DIOXIDE 24 MMOL/L (21-32); CHLORIDE 98 MMOL/L (98-107); CREATININE SERUM 0.61 MG/DL (0.60-1.30); GFR ESTIMATED > 60; GLUCOSE 119 MG/DL (70-105); MAGNESIUM 1.9 MG/DL (1.8-2.4); POTASSIUM 5.4 MMOL/L (3.6-5.0); SODIUM 130 MMOL/L (135-145); TOTAL PROTEIN 6.1 GM/DL (6.4-8.2)
[2018-08-04] MEDS: ceFAZolin INJECTION 1,000 MG in NS (IVPB) 50 ML IV SCH ×2 (06:14→14:16)
[2018-08-04] MEDS: PANTOPRAZOLE 40 MG (PROTONIX) TAB PO SCH (06:14)
--- NOTE | 2018-08-04 07:19 | ED Fall/Injury ---
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 RIGHT SIDE HIP PAIN WHEN LEG/HIP MOVED. THIS IS 3RD FALL TODAY PER PT, HX OF RECENT FALLS. C COLLAR IN PLACE PER EMS. Source: patient (PT IS LIMTED HISTORIAN), EMS History of Present Illness Date Seen by Provider: Aug 03, 2018 Time Seen by Provider: 00:15 Initial Comments PT ARRIVES VIA EMS FROM HOME--LIVES WITH SISTER PT IS IN CERVICAL COLLAR BY EMS PT STATES SHE WAS LEANING ON THE BED, GETTING A SNACK FOR THE DOG, AND SHE LOST HER BALANCE AND FELL, INJURING HER RIGHT HIP AND LEG STATES IT HURTS FROM HER HIP ALL THE WAY DOWN TO HER FOOT DID NOT HIT HER HEAD AND NO LOSS OF CONSCIOUSNESS DENIES HAVING ANY NECK PAIN, STATES HER HEAD IS "JUST HARD TO HOLD UP" AND HAS CHRONIC NECK PAIN PT STATES HER "RIBS ALWAYS HURT" BUT STATES SHE ALSO INJURED RIGHT LOWER RIBS 3 WEEKS AGO FROM A FALL. PT HAS FREQUENT FALLS, AND STATES SHE ALSO FELL EARLIER TODAY X 2--SIMPLY LOST HER BALANCE, BUT STATES SHE DID NOT INJURE HERSELF FROM THOSE FALLS. PT HAS CHRONIC PAIN COMPLAINTS AND TAKES MORPHINE DAILY, WELL ALPRAZOLAM PT DENIES BEING ON ANY BLOOD THINNERS. ( IS LATER NOTED ON MED RECONCILIATION THAT SHE IS ON ASPIRIN AND PLAVIX ) PCP: DR. SNYDER AT [facility] Allergies and Home Medications Allergies Coded Allergies: acetaminophen (Verified Allergy, Unknown, 01/16/16) diphenhydramine (Verified Allergy, Unknown, 08/03/18) oxymorphone (Verified Allergy, Unknown, 08/03/18) varenicline (Verified Allergy, Unknown, 08/03/18) Home Medications Acetaminophen 500 Mg Tablet, 1,000 MG PO Q4H PRN for PAIN-MILD, (Reported) Albuterol Sulfate 18 Gm Hfa.aer.ad, 2 PUFF INH Q4H PRN for SHORTNESS OF BREATH, (Reported) Alprazolam 1 Mg Tablet, 1 MG PO TID PRN for ANXIETY, (Reported) Aspirin 325 Mg Tablet.dr, 325 MG PO DAILY, (Reported) Atorvastatin Calcium 40 Mg Tablet, 40 MG PO HS, (Reported) Clopidogrel Bisulfate 75 Mg Tablet, 75 MG PO DAILY, (Reported) Famotidine 20 Mg Tablet, 20 MG PO BID Prescribed by: SINDY GALE on 05/26/18 1448 Gabapentin 600 Mg Tablet, 600 MG PO TID, (Reported) Lisinopril 10 Mg Tablet, 10 MG PO DAILY, (Reported) Magnesium Oxide 400 Mg Tablet, 400 MG PO DAILY Prescribed by: SINDY GALE on 05/26/18 1448 Metoprolol Tartrate 50 Mg Tablet, 50 MG PO BID, (Reported) Morphine Sulfate 15 Mg Tablet.er, 15 MG PO Q12H, (Reported) Nitroglycerin 0.4 Mg Tab.subl, 0.4 MG SL UD PRN for CHEST PAIN, (Reported) Pantoprazole Sodium 40 Mg Tablet.dr, 40 MG PO DAILY Prescribed by: SAI COOK on 06/02/18 1145 Paroxetine HCl 20 Mg Tablet, 20 MG PO DAILY, (Reported) Potassium Chloride 10 Meq Tab.er.prt, 10 MEQ PO DAILY Prescribed by: SINDY GALE on 05/26/18 1448 Patient Home Medication List Home Medication List Reviewed: Yes Review of Systems Review of Systems Constitutional: weight loss (CHRONIC, UNEXPLAINED WEIGHT LOSS X 2 YEARS--WAS 125# 2 YEARS AGO, NOW WEIGHS 88#) Eyes: No Symptoms Reported Ears, Nose, Mouth, Throat: no symptoms reported Respiratory: no symptoms reported Cardiovascular: no symptoms reported Gastrointestinal: no symptoms reported Genitourinary: no symptoms reported : No Musculoskeletal: see HPI Skin: no symptoms reported Psychiatric/Neurological: No Symptoms Reported; Denies Headache, Denies Numbness, Denies Paresthesia Past Xopoahv-Bcirml-Oosbhg Hx Patient Social History Alcohol Use: Denies Use Recreational Drug Use: No Smoking Status: Current Everyday Smoker (1/2 PPD SINCE AGE 9) Type Used: Cigars, Cigarettes Recent Foreign Travel: No Contact w/Someone Who Travel: No Recent Infectious Disease Expo: No Recent Hopitalizations: No Physical Abuse: No Sexual Abuse: No Mistreated: No Fear: No Immunizations Up To Date Tetanus Booster (TDap): Unknown Date of Pneumonia Vaccine: Jul 05, 2017 Date of Influenza Vaccine: Jul 05, 2018 Seasonal Allergies Seasonal Allergies: No Past Medical History Surgeries: Yes (CARDIAC CATH--STENTS X 2 ) Cardiac, Coronary Stent, Hysterectomy Respiratory: Yes (SMOKED 1/2 PPD SINCE AGE 9) Asthma, COPD Currently Using CPAP: No Currently Using BIPAP: No Cardiac: Yes (STENTS X 2, PER PT) Coronary Artery Disease, Heart Attack, Hypertension Neurological: Yes (sleepwalking; NUEROPATHY IN LEGS AND HANDS, PER PT) Neuropathy Reproductive Disorders: No Female Reproductive Disorders: Denies Sexually Transmitted Disease: No HIV/AIDS: No Genitourinary: No Gastrointestinal: Yes Colitis, Gastroesophageal Reflux, Crohns Disease Musculoskeletal: Yes (RESTLESS LEGS,CHRONIC NECK AND BACK PAIN; FREQUENT FALLS) Arthritis, Chronic Back Pain Endocrine: No HEENT: Yes (STATED SHE HAS TROUBLE SEEING THE MENU) Loss of Vision: Right Hearing Impairment: Denies Cancer: Yes Skin, Ovarian Did You Recieve Any Treatments: Yes What Type of Treatment Did You: Surgical Intervention laser surgeries Psychosocial: Yes (PANIC ATTACKS, night terrors) Sleep Difficulties, Anxiety, PTSD, Bipolar, Depression Integumentary: Yes ("SKIN CANCER SPOTS") Blood Disorders: No (aplastic anemia) Family Medical History Psychosocial problem G8 SISTER Physical Exam Vital Signs Vital Signs - First Documented Capillary Refill : Less Than 3 SecondsLess Than 3 Seconds Height, Weight, BMI Height: 5'0.00" Weight: 101lbs. 2.0oz. 45.360098pr; 19.8 BMI Method:Stated General Appearance: no apparent distress, cachetic, thin HEENT: PERRL/EOMI Neck: non-tender, full range of motion, supple, normal inspection Cardiovascular: normal peripheral pulses, regular rate, rhythm, no murmur Respiratory: normal breath sounds, no respiratory distress, no accessory muscle use, other (MILD TENDERNESS TO RIGHT LOWER ANTERIOR RIB AREA. ) Peripheral Pulses: 2+ Dorsalis Pedis (R), 2+ Left Dors-Pedis (L), 2+ Radial Pulses (R), 2+ Radial Pulses (L) Gastrointestinal: normal bowel sounds, non tender, soft, no organomegaly Back: no CVA tenderness, no vertebral tenderness Extremities: other (DIFFUSE TENDERNESS TO ENTIRE RIGHT LEG, WITH LIMITED ROM OF ENTIRE RIGHT LEG. DISTAL MOTOR/SENSORY/VASCULAR INTACT. RIGHT LEG SHORTNENED AND EXTERNALLY ROTATED. 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, no motor/sensory deficits, alert, normal mood/affect, oriented x 3 Skin: normal color, warm/dry Progress/Results/Core Measures Results/Orders Lab Results Laboratory Tests Test 08/03/18 00:20 08/03/18 00:32 Range/Units White Blood Count 17.4 H 4.3-11.0 10^3/uL Red Blood Count 4.20 L 4.35-5.85 10^6/uL Hemoglobin 13.5 11.5-16.0 G/DL Hematocrit 41 35-52 % Mean Corpuscular Volume 97 80-99 FL Mean Corpuscular Hemoglobin 32 25-34 PG Mean Corpuscular Hemoglobin Concent 33 32-36 G/DL Red Cell Distribution Width 14.7 H 10.0-14.5 % Platelet Count 170 130-400 10^3/uL Mean Platelet Volume 10.5 H 7.4-10.4 FL Neutrophils (%) (Auto) 91 H 42-75 % Lymphocytes (%) (Auto) 4 L 12-44 % Monocytes (%) (Auto) 5 0-12 % Eosinophils (%) (Auto) 0 0-10 % Basophils (%) (Auto) 0 0-10 % Neutrophils # (Auto) 15.9 H 1.8-7.8 X 10^3 Lymphocytes # (Auto) 0.7 L 1.0-4.0 X 10^3 Monocytes # (Auto) 0.8 0.0-1.0 X 10^3 Eosinophils # (Auto) 0.0 0.0-0.3 10^3/uL Basophils # (Auto) 0.0 0.0-0.1 10^3/uL Neutrophils % (Manual) 89 % Lymphocytes % (Manual) 5 % Monocytes % (Manual) 6 % Prothrombin Time 14.7 12.2-14.7 SEC INR Comment 1.2 0.8-1.4 Activated Partial Thromboplast Time 34 24-35 SEC Sodium Level 136 135-145 MMOL/L Potassium Level 4.4 3.6-5.0 MMOL/L Chloride Level 99 98-107 MMOL/L Carbon Dioxide Level 28 21-32 MMOL/L Anion Gap 9 5-14 MMOL/L Blood Urea Nitrogen 19 H 7-18 MG/DL Creatinine 0.92 0.60-1.30 MG/DL Estimat Glomerular Filtration Rate > 60 BUN/Creatinine Ratio 21 Glucose Level 104 70-105 MG/DL Calcium Level 8.2 L 8.5-10.1 MG/DL Corrected Calcium 8.8 8.5-10.1 MG/DL Magnesium Level 2.3 1.8-2.4 MG/DL Total Bilirubin 0.3 0.1-1.0 MG/DL Aspartate Amino Transf (AST/SGOT) 27 5-34 U/L Alanine Aminotransferase (ALT/SGPT) 14 0-55 U/L Alkaline Phosphatase 75 40-136 U/L Total Protein 6.2 L 6.4-8.2 GM/DL Albumin 3.2 3.2-4.5 GM/DL TSH [place] Testing 0.87 0.35-4.94 UIU/ML Serum Alcohol < 10 <10 MG/DL Urine Color YELLOW Urine Clarity CLEAR Urine pH 7 5-9 Urine Specific [place] 1.010 L 1.016-1.022 Urine Protein NEGATIVE NEGATIVE Urine Glucose (UA) NEGATIVE NEGATIVE Urine Ketones NEGATIVE NEGATIVE Urine Nitrite NEGATIVE NEGATIVE Urine Bilirubin NEGATIVE NEGATIVE Urine Urobilinogen NORMAL NORMAL MG/DL Urine Leukocyte Esterase NEGATIVE NEGATIVE Urine RBC (Auto) 1+ H NEGATIVE Urine RBC NONE /HPF Urine WBC RARE /HPF Urine Squamous Epithelial Cells RARE /HPF Urine Crystals NONE /LPF Urine Bacteria TRACE /HPF Urine Casts NONE /LPF Urine Mucus NEGATIVE /LPF Urine Culture Indicated NO Urine Opiates Screen POSITIVE H NEGATIVE Urine Oxycodone Screen NEGATIVE NEGATIVE Urine Methadone Screen NEGATIVE NEGATIVE Urine Propoxyphene Screen NEGATIVE NEGATIVE Urine Barbiturates Screen NEGATIVE NEGATIVE Ur Tricyclic Antidepressants Screen NEGATIVE NEGATIVE Urine Phencyclidine Screen NEGATIVE NEGATIVE Urine Amphetamines Screen NEGATIVE NEGATIVE Urine Methamphetamines Screen NEGATIVE NEGATIVE Urine Benzodiazepines Screen POSITIVE H NEGATIVE Urine Cocaine Screen NEGATIVE NEGATIVE Urine Cannabinoids Screen NEGATIVE NEGATIVE My Orders Orders - KEVON FIERRO DO Saline Lock/Iv-Start (08/03/18 00:22) Ekg Tracing (08/03/18 00:22) Catheter(Urinary) Insert & Ass 03,15 (08/03/18 00:22) O2 (08/03/18 00:22) Monitor-Rhythm Ecg Trace Only (08/03/18 00:22) Alcohol (08/03/18:22) Cbc With Automated Diff (08/03/18 00:22) Comprehensive Metabolic Panel (08/03/18 00:22) Drug Screen Stat (Urine) (08/03/18 00:22) Magnesium (08/03/18 00:22) Protime With Inr (9/30/18 00:22) Partial Thromboplastin Time (08/03/18 00:22) Thyroid Analyzer (08/03/18 00:22) Ua Culture If Indicated (08/03/18 00:22) Chest 1 View, Ap/Pa Only (08/03/18 00:22) Femur, Right, 2 Views (08/03/18 00:22) Tibia/Fibula, Right, 2 Views (08/03/18 00:22) Pelvis (08/03/18 00:22) Ct Head/Cervical Spine Wo (08/03/18 00:22) Manual Differential (08/03/18 00:20) Vital Signs/I&O 08/03/18 08/03/18 00:09 00:09 Temp 98.3 98.3 Pulse 92 92 Resp 17 17 B/P (MAP) 108/63 (78) 108/63 (78) Pulse Ox 92 92 O2 Delivery Nasal Cannula Blood Pressure Mean: 113 Initial ECG Impression Date: Aug 03, 2018 Initial ECG Impression Time: 01:48 Initial ECG Rate: 89 Initial ECG Rhythm: Normal Sinus Initial ECG Impression: Nonspecific Changes Diagnostic Imaging Comments XRAYS: PELVIS--RIGHT HIP FRACTURE RIGHT FEMUR--RIGHT HIP FRACTURE RIGHT TIB-FIB--NO ACUTE PROCESS CXR--NO ACUTE PROCESS, CHRONIC CHANGES ALL PENDING RADIOLOGIST REVIEW CT HEAD/CERVICAL SPINE--NO ACUTE PROCESS, PER [facility] VIA FAX @ [phone] Reviewed: Reviewed by [place] Departure Communication (Admissions) 0143--SPOKE WITH DR. GONZALEZ, ORTHOPEDIC SURGEON OPERATING ROOM SPECIALIST. ACCEPTS PT FOR ADMIT. Impression Primary Impression: Closed right hip fracture Additional Impression: Frequent falls Disposition: 09 ADMITTED INPATIENT Condition: Improved Admissions Decision to Admit Reason: Admit from ER (Trauma) Decision to Admit/Date: Aug 03, 2018 Time/Decision to Admit Time: 01:45 Departure-Patient Inst. Referrals: CEASAR SNYDER MD (PCP) Primary Care Physician KEVON FIERRO DO Aug 04, 2018 07:19
[2018-08-04] MEDS: 1/2 NS IV SOLUTION 1,000 ML IV SCH ×3 (08:06→23:52)
[2018-08-04] MEDS: ENOXAPARIN 30 MG/0.3 ML (LOVENOX) SYR SC SCH (09:23)
[2018-08-04] MEDS: ASPIRIN E.C. 325 MG (ECOTRIN) TABLET PO SCH (09:23)
[2018-08-04] MEDS: FAMOTIDINE 20 MG (PEPCID) TABLET PO SCH ×2 (09:23→20:48)
[2018-08-04] MEDS: MAGNESIUM OXIDE (MAG-OX)400 MG TAB PO SCH (09:23)
[2018-08-04] MEDS: CLOPIDOGREL 75 MG (PLAVIX) TABLET PO SCH (09:23)
[2018-08-04] MEDS: GABAPENTIN 600 MG (NEURONTIN) TAB PO SCH ×3 (09:23→20:48)
[2018-08-04] MEDS: PARoxetine 20 MG (PAXIL) TAB PO SCH (09:23)
[2018-08-04] MEDS: meTOprolol TARTRATE 50 MG (LOPRESSOR) TAB PO SCH ×2 (09:23→20:48)
[2018-08-04] MEDS: lisINopril 10 MG (PRINIVIL) TABLET PO SCH (09:23)
[2018-08-04] MEDS: KCL 10 MEQ TAB (MICRO K) PO SCH (09:24)
[2018-08-04] MEDS: morphine ER 15 MG (MS CONTIN) TAB PO SCH ×2 (09:49→20:48)
--- NOTE | 2018-08-04 10:19 | Physical Therapy Evaluation ---
PT Evaluation-General Medical Diagnosis Admission Date Aug 03, 2018 at 01:45 Medical Diagnosis: right hip fracture Onset Date: Aug 03, 2018 Therapy Diagnosis Therapy Diagnosis: generalized weakness\\debility Height/Weight Height (Feet): 5 Height (Inches): 0.00 Weight (Pounds): 101 Weight (Ounces): 2.0 Precautions Precautions/Isolations: Fall Prevention, Standard Precautions Weight Bear Status Right Lower Extremity: Right Full Weight Bearing Left Lower Extremity: Left Full Weight Bearing Referral Physician: Karlo Reason for Referral: Evaluation/Treatment Medical History Pertinent Medical History: COPD, HTN, MA, Smoking Additional Medical History Crohn's, PTSD Current History stumbled and fell at home Reviewed History: Yes Social History Home: Single Level Current Living Status: Other Family Entry Into Home: Stairs With Railing PT Steps Into Home: 2 Prior/Core FIM Prior Level of Function Functional [place] Measure 0=Not Assessed/NA 4=Minimal Assistance 1=Total Assistance 5=Supervision or Setup 2=Maximal Assistance 6=Modified [place] 3=Moderate Assistance 7=Complete [place] Bed Mobility: 6 Transfers (B,C,W/C) (FIM): 6 Gait: 1 per family, patient is in bed the majority of the day and will get up to use the restroom and maybe eat. uses a cane for mobility PT Evaluation-Current Subjective Patient declined PT and would not open her eyes. PT highly encouraged patient to participate with therapy and patient stated, "You will have to do it all. I don't want to." Pain Numeric Pain Scale: 10-Worst Possible Pain Location: Right Location Body Site: Hip Pain Description: Acute Objective Patient Orientation: Person, Time, Situation Problem Solving: Poor Attachments: Oxygen, Hsieh Catheter, IV ROM/Strength ROM Lower Extremities right LE WFL (limited slightly by pain)/left LE WFL Strength Lower Extremities right LE 2/5 grossly with patient not following direction to assess/left LE 3/5 grossly Integumentary/Posture Integumentary refer to nursing notes Bowel Incontinence: No Bladder Incontinence: Hsieh Cath Posture trunk flexed posture Neuromuscular (Tone, Coordination, Reflexes) severely diminished coordination due to pain and not opening her eyes during treatment Sensory Vision: Unable to Assess Hearing: Functional Sensation Right Lower Extremit: Intact Sensation Left Lower Extremity: Intact Transfers Functional [place] Measure 0=Not Assessed/NA 4=Minimal Assistance 1=Total Assistance 5=Supervision or Setup 2=Maximal Assistance 6=Modified [place] 3=Moderate Assistance 7=Complete [place] Transfers (B, C, W/C) (FIM): 1 Scootin Rollin Supine to/from Sit: 1 Sit to/from Stand: 1 bed t/f WC(FIM only if WC use): 1 patient refused to assist with mobility. Would not weight bear right LE with sit to stand or SPT Gait Mode of Locomotion: Walk Anticipated Mode of Locomotion: Walk Balance Sitting Static: Fair Sitting Dynamic: Fair Standing Static: Poor Standing Dynamic: Poor Assessment/Needs 68 y.o. female, will benefit from skilled PT to address functional strength and mobility to improve current LOF. Currently patient appears to not be motivated to actively participate with therapy. This PT educated patient on importance of actively participating to ensure safe healing and return to home vs. the possible negative side effects of not participating. Patient continued to state she did not want to participate. Rehab Potential: Guarded Post Rehab Potential-Barriers: participation PT Short Term Goals Short Term Goals Time Frame: Aug 21, 2018 Transfers (B,C,W/C) (FIM): 3 Gait (FIM): 1 Distance (FIM): 1=up to 49 ft Gait Distance Comment: 45' Gait Level of Assist: 3 Gait Assistive Device: FWW PT Intermediate Goals Dry Color Tester Goals PT Intermediate Goals Time Frame: Aug 30, 2018 Transfers (B,C,W/C) (FIM): 5 Gait (FIM): 5 Gait distance (FIM): 3=150 ft Distance: 150' Gait Level of Assist: 5 Gait Assistive Device: FWW PT Plan Problem List Problem List: Activity Tolerance, Functional Strength, Safety, Balance, Gait, Transfer, Bed Mobility, ROM Treatment/Plan Treatment Plan: Continue Plan of Care Treatment Plan: Bed Mobility, Education, Functional Activity Wilbert, Functional Strength, Gait, Safety, Therapeutic Exercise, Transfers Treatment Duration: Aug 30, 2018 Frequency: 11 times per week Estimated Hrs Per Day: .5 hour per day Patient and/or Family Agrees t: Yes (family) Safety Risks/Education Patient Education: Safety Issues Teaching Recipient: Patient Teaching Methods: Discussion Response to Teaching: Reinforcement Needed Discharge Recommendations Therapy D/C Recommendations: Halfway Placement, Retirement (TCU/NH) Time/GCodes Time In: 930 Time Out: 947 Total Billed Treatment Time: 17 Total Billed Treatment 1 visit EVModC 17 min G Codes Necessary: No NIDA MYLES PT Aug 04, 2018 10:19
--- NOTE | 2018-08-04 12:49 | Cardiology Progress Note ---
Cardiology SOAP Progress Note Subjective: No Cardiac symptoms. Objective: I&O/Vital Signs 08/05/18 08/05/18 08/05/18 08/05/18 01:18 02:00 03:00 04:00 Temp 97.2 Pulse 71 67 Resp 22 14 B/P (MAP) 112/67 (82) 132/82 (99) Pulse Ox 94 92 94 O2 Delivery Nasal Cannula Nasal Cannula Nasal Cannula O2 Flow Rate 2.00 2.00 2.00 08/05/18 08/05/18 08/05/18 08/05/18 04:00 04:00 05:00 06:00 Pulse 71 70 70 Resp 16 19 16 B/P (MAP) 134/79 (97) 144/85 (104) 154/97 (116) Pulse Ox 94 94 96 O2 Delivery Nasal Cannula Nasal Cannula Nasal Cannula Nasal Cannula O2 Flow Rate 2.00 2.00 2.00 2.00 08/05/18 08/05/18 08/05/18 08/05/18 06:55 07:00 07:00 07:24 Temp 98.3 Pulse 79 75 Resp 15 B/P (MAP) 157/93 (114) Pulse Ox 95 100 O2 Delivery Nasal Cannula Nasal Cannula Nasal Cannula O2 Flow Rate 2.00 2.00 2.00 08/05/18 08/05/18 08/05/18 08/05/18 08:00 09:00 10:00 10:32 Pulse 77 79 73 Resp 19 16 18 B/P (MAP) 131/74 (93) 138/78 (98) 117/64 (81) Pulse Ox 95 97 O2 Delivery Nasal Cannula Nasal Cannula Nasal Cannula Nasal Cannula O2 Flow Rate 2.00 2.00 2.00 2.00 08/05/18 08/05/18 08/05/18 11:00 11:47 12:00 Temp 100.1 Pulse 78 76 Resp 14 17 B/P (MAP) 118/50 (72) 101/73 (82) Pulse Ox 92 O2 Delivery Nasal Cannula Nasal Cannula Nasal Cannula O2 Flow Rate 2.00 2.00 2.00 08/05/18 00:00 Intake Total 1460 ml Output Total 825 ml Balance 635 ml Weight (Pounds): 101 Weight (Ounces): 2.0 Weight (Calculated Kilograms): [id number] Constitutional: No appears stated age, No AAO x 3, No apparent distress, No PERRL, No well-developed, No well-nourished, No other Respiratory: No accessory muscle use, No respiratory distress, No chest tender , No chest expansion is symmetric; chest is bilaterally symmetric; No lungs clear to percussion; lungs clear to auscultation; No crackles, No rhonchi, No rales, No stridor, No wheezing, No pleural rub, No other Cardiovascular: regular rate-rhythm; No irregularly irregular, No extra beats, No parasternal heave is noted, No JVD, No edema, No bradycardia, No tachycardia , No point of maximal impulse, No cardiac thrills are palpable; S1 and S2; No gallop/S3, No gallop/S4, No diastolic murmur, No systolic murmur, No friction rub, No click, No other Gastrointestional: No tender, No soft, No round, No distended, No pulsatile mass, No organomegaly, No guarding, No rebound, No tenderness, No hernia, No mass, No audible bowel sounds, No abnormal bowel sounds, No abdominal bruits, No spleenomegaly, No other Extremities: No normal range of motion, No non-tender, No normal inspection, No pedal edema, No calf tenderness, No normal capillary refill, No pelvis stable , No calf tenderness, No inflammation, No pedal edema, No slow capillary refill , No swelling, No other, No abrasion, No clubbing, No cyanosis, No ecchymosis, No laceration, No no lower extremity edema bilateral, No significant edema; tenderness; No wound Neurologic/Psychiatric: no motor/sensory deficits, alert, normal mood/affect, oriented x 3 Skin: No normal color, No warm/dry, No cyanosis, No cool, No diaphoresis, No damp, No ecchymosis, No jaundice, No mottled, No pallor, No rash, No tattoos/ piercings, No ulcerations, No rash on exposed areas, No ulcerations on exposed areas, No other Results/Procedures: Labs Laboratory Tests 08/05/18 04:20: White Blood Count 6.8, Red Blood Count 3.57L, Hemoglobin 11.3L, Hematocrit 34L, Mean Corpuscular Volume 96, Mean Corpuscular Hemoglobin 32, Mean Corpuscular Hemoglobin Concent 33, Red Cell Distribution Width 14.0, Platelet Count 124L, Mean Platelet Volume 10.5H, Sodium Level 130L, Potassium Level 4.5, Chloride Level 99, Carbon Dioxide Level 24, Anion Gap 7, Blood Urea Nitrogen 10, Creatinine 0.55L, Estimat Glomerular Filtration Rate > 60, BUN/Creatinine Ratio 18, Glucose Level 79, Calcium Level 8.2L, Magnesium Level 1.7L Microbiology 08/03/18 MRSA Screen - Final, Complete MRSA not isolated A/P: Assessment/Dx: Admission Diagnosis Chest pain Coronary artery disease Hypertension Hyperlipidemia Hip fracture Plan: Assessment/Plan Coronary artery disease, history of old myocardial infarction with multiple stents in the past, in 2000 she had proximal and distal circumflex stent 3.013 and 2.513 done in [place]. Had a cardiac catheterization done by Dr. Brooke in November 2017 which showed mild ostial left main coronary artery stenosis, LAD had patent stent with mild diffuse disease, circumflex artery has patent first obtuse marginal artery stent and after the first obtuse marginal branch in the mid circumflex there is a stent which has severe in-stent restenosis and distal to the first stent there is another stent that is occluded, failed attempt to intervention at that time. Patient had moderate diffuse disease in the right coronary artery that was treated medically. Patient had mild apical hypokinesis with ejection fraction 45-50 percent. Recurrent chest pain, treated conservatively for which she takes nitroglycerin sublingual Shortness of breath, history of COPD. Peripheral arterial disease, claudication, peripheral angiogram was done in September 2017 which showed [id number] disease in the distal abdominal aorta, mild to moderate disease diffusely down to the trifurcation with no obstructive disease Hypertension, history of borderline low blood pressure. Monitor blood pressure Hyperlipidemia, maintained on statin Pulmonary hypertension Valvular heart disease with moderate mitral regurgitation, moderate to severe tricuspid regurgitation Tobaccoism, still an active smoker. Right hip surgery postoperative day one done by orthopedics Thank you for your consultation. Please call me if you have any questions. Luis Brooke MD, FACP, FACC, FSCAI, FHRS, CCDS Interventional Cardiology Cardiac Electrophysiology Vascular Medicine and Endovascular Interventions Aimee BROOKE MD Aug 04, 2018 12:49 pm
--- NOTE | 2018-08-04 12:58 | Progress Note (SOAP) ---
Subjective Date Seen by a Provider: Aug 04, 2018 Time Seen by a Provider: 12:53 Subjective/Events-last exam Hip hurts, but over all ok, no other complaints Objective Exam Vital Signs Date Time Temp Pulse Resp B/P (MAP) Pulse Ox O2 Delivery O2 Flow Rate FiO2 08/04/18 12:10 98.2 Nasal Cannula 2.00 08/04/18 12:00 78 19 144/91 (108) 90 Nasal Cannula 2.00 08/04/18 11:00 74 17 146/92 (110) 91 Nasal Cannula 2.00 08/04/18 10:00 86 23 134/80 (98) 98 Nasal Cannula 2.00 08/04/18 09:00 90 18 152/79 (103) 98 Nasal Cannula 2.00 08/04/18 08:58 Nasal Cannula 2.00 08/04/18 08:05 100.0 Nasal Cannula 2.00 08/04/18 08:00 89 12 148/73 (98) 99 Nasal Cannula 2.00 08/04/18 07:00 85 08/04/18 07:00 86 15 149/78 (101) 97 Nasal Cannula 2.00 08/04/18 06:00 79 14 161/90 (113) 100 Nasal Cannula 2.00 08/04/18 05:00 81 14 147/77 (100) 100 Nasal Cannula 2.00 08/04/18 04:00 79 13 149/74 (99) 100 Nasal Cannula 2.00 08/04/18 04:00 96.9 08/04/18 04:00 96 Nasal Cannula 2.00 08/04/18 03:00 77 10 139/69 (92) 100 Nasal Cannula 2.00 08/04/18 02:00 85 15 116/66 (83) 99 Nasal Cannula 2.00 08/04/18 01:00 82 08/04/18 01:00 87 16 135/70 (91) 100 Nasal Cannula 2.00 08/04/18 00:41 86 13 135/66 (89) 98 Nasal Cannula 2.00 08/04/18 00:00 96 Nasal Cannula 2.00 08/04/18 00:00 97.0 08/03/18 23:45 89 14 133/64 (87) 97 Nasal Cannula 2.00 08/03/18 22:00 93 14 118/65 (82) 99 Nasal Cannula 2.00 08/03/18 21:00 93 13 117/67 (84) 99 Nasal Cannula 2.00 08/03/18 20:14 93 12 114/64 (81) 97 Nasal Cannula 2.00 08/03/18 20:00 96 Nasal Cannula 2.00 08/03/18 20:00 99.0 Nasal Cannula 2.00 08/03/18 19:20 Nasal Cannula 2.00 08/03/18 19:17 98 Nasal Cannula 3.00 08/03/18 19:00 93 11 111/59 (76) 97 Nasal Cannula 3.00 08/03/18 19:00 93 08/03/18 18:00 90 14 124/54 (77) 96 Nasal Cannula 3.00 08/03/18 17:00 90 14 112/60 (77) 93 Nasal Cannula 3.00 08/03/18 16:30 96 Nasal Cannula 3.00 08/03/18 16:30 99.3 86 12 108/54 (72) 96 Nasal Cannula 3.00 08/03/18 13:02 92 Nasal Cannula 2.00 08/03/18 13:00 100.2 101 18 148/70 (96) 95 Nasal Cannula 4.00 I & O 08/04/18 07:00 Intake Total 50 ml Output Total 1925 ml Balance -1875 ml Capillary Refill : Less Than 3 SecondsLess Than 3 Seconds General Appearance: No Apparent Distress Neck: Supple Respiratory: No Accessory Muscle Use, No Respiratory Distress Cardiovascular: Regular Rate, Rhythm Gastrointestinal: normal bowel sounds, soft Extremity: No Calf Tenderness Neurologic/Psychiatric: Alert, Oriented x3, No Motor/Sensory Deficits Results Lab Laboratory Tests 08/04/18 02:59: White Blood Count 11.2H, Red Blood Count 4.08L, Hemoglobin 12.8, Hematocrit 40, Mean Corpuscular Volume 99, Mean Corpuscular Hemoglobin 31, Mean Corpuscular Hemoglobin Concent 32, Red Cell Distribution Width 14.7H, Platelet Count 152, Mean Platelet Volume 10.5H, Sodium Level 130L, Potassium Level 5.4H, Chloride Level 98, Carbon Dioxide Level 24, Anion Gap 8, Blood Urea Nitrogen 9, Creatinine 0.61, Estimat Glomerular Filtration Rate > 60, BUN/Creatinine Ratio 15, Glucose Level 119H, Calcium Level 8.3L, Corrected Calcium 9.1, Magnesium Level 1.9, Total Bilirubin 0.5, Aspartate Amino Transf (AST/SGOT) 20, Alanine Aminotransferase (ALT/SGPT) 13, Alkaline Phosphatase 74, Total Protein 6.1L, Albumin 3.0L Microbiology 08/03/18 MRSA Screen - Final, Complete MRSA not isolated Assessment/Plan Assessment/Plan Assess & Plan/Chief Complaint Right Hip IT fracture, s/p IM nailing. Up with PT Continue Current Care Clinical Quality Measures DVT/VTE Risk/Contraindication: Risk Factor Score Per Nursin RFS Level Per Nursing on Admit: 4+=Very High KAILYN ROSE MD Aug 04, 2018 12:58 pm
--- NOTE | 2018-08-04 13:07 | Physical Therapy Daily Note ---
PT Daily Note-Current Subjective Patient is more alert and cooperative this p.m. Agrees to PT. Pain Numeric Pain Scale: 7 Location: Right Location Body Site: Hip Pain Description: Acute Mental Status Patient Orientation: Normal For Age Attachments: Oxygen, Hsieh Catheter, IV Transfers Functional [place] Measure 0=Not Assessed/NA 4=Minimal Assistance 1=Total Assistance 5=Supervision or Setup 2=Maximal Assistance 6=Modified [place] 3=Moderate Assistance 7=Complete IndependenceIRFPAI Quality Coding Scale 6 Independent with activity with or without an assistive device 5 Patient requires set up or clean up by helper. Patient completes activity by themselves 4 Supervision or touching assist (CGA). [place] provide cues , steadying assist 3 The helper provides less than half the effort to complete the activity 2 The helper provides more than half the effort to complete the activity 1 Dependent. The helper does all the effort to complete an activity 7 Patient refused to complete or attempt activity 9 The patient did not perform the activity before the current illness or injury 88 Not attempted due to Medical conditions or safety concerns Transfers (B, C, W/C) (FIM): 4 Scootin Rollin Supine to/from Sit: 4 Sit to/from Stand: 4 Bed to/from Chair: 4 Weight Bearing Right Lower Extremity: Right Full Weight Bearing Left Lower Extremity: Left Full Weight Bearing Gait Training Gait (FIM): 1 Distance (FIM): 3=150 ft Distance: 10' Gait Level of Assist: 4 Gait Persons Needed: 1 Gait Assistive Device: FWW very slow, antalgic Exercises Supine Ex: Ankle pumps, Quad Set, Heel Slides, Straight leg raise Supine Reps: 15 (2 sets) Assessment Patient much more cooperative and alert this p.m. PT discussed with patient ARU and patient report she is interested. Increase activity as tolerated by patient. PT Short Term Goals Short Term Goals Time Frame: Aug 21, 2018 Transfers (B,C,W/C) (FIM): 3 Gait (FIM): 1 Distance (FIM): 1=up to 49 ft Gait Distance Comment: 45' Gait Level of Assist: 3 Gait Assistive Device: FWW PT Fci Goals Fci Goals PT Fci Goals Time Frame: Aug 30, 2018 Transfers (B,C,W/C) (FIM): 5 Gait (FIM): 5 Gait distance (FIM): 3=150 ft Distance: 150' Gait Level of Assist: 5 Gait Assistive Device: FWW PT Plan Treatment/Plan Treatment Plan: Continue Plan of Care Treatment Plan: Bed Mobility, Education, Functional Activity [place], Functional Strength, Gait, Safety, Therapeutic Exercise, Transfers Treatment Duration: Aug 30, 2018 Frequency: 11 times per week Estimated Hrs Per Day: .5 hour per day Patient and/or Family Agrees t: Yes (family) Time/GCodes Time In: 1237 Time Out: 1300 Total Billed Treatment Time: 23 Total Billed Treatment 1 visit FA 10 min EX 13 min NIDA MYLES PT Aug 04, 2018 13:07
--- NOTE | 2018-08-04 14:26 | Anesthesia-General Post-Op ---
General Patient Condition Mental Status/LOC: Same as Preop Cardiovascular: Satisfactory Nausea/Vomiting: Absent Respiratory: Satisfactory Pain: Controlled Complications: Absent Post Op Complications Complications None Follow Up Care/Instructions Patient Instructions None needed. Anesthesia/Patient Condition Patient Condition Patient is sitting up in chair, no complaints, stable vital signs, no apparent adverse anesthesia problems. MARYANN RUANO DO Aug 04, 2018 14:26
--- NOTE | 2018-08-04 15:21 | Progress Note (SOAP) ---
Subjective Subjective/Events-last exam POD #1 from right hip fracture repair per ortho. Patient denies complaints, feels her pain is well controlled with current medications. Nursing staff concerned regarding patient's unwillingness to breathe deeply, despite frequent reminders to use her IS. Review of Systems Date Seen by Provider: Aug 04, 2018 Time Seen by Provider: 14:57 General: No Chills, No Night Sweats HEENT: No Head Aches, No Dysphasia Pulmonary: No Dyspnea Cardiovascular: No: Chest Pain Gastrointestinal: No: Nausea, Vomiting Musculoskeletal: other (right hip pain) Neurological: Weakness; No: Numbness, Seizures Objective Exam Last Set of Vital Signs Vital Signs Date Time Temp Pulse Resp B/P (MAP) Pulse Ox O2 Delivery O2 Flow Rate FiO2 08/04/18 14:00 73 17 111/72 (85) 94 Nasal Cannula 2.00 08/04/18 12:10 98.2 08/03/18 04:20 28 Capillary Refill : Less Than 3 SecondsLess Than 3 Seconds I&O Intake and Output 08/04/18 00:00 Intake Total 300 ml Output Total 2950 ml Balance -2650 ml Intake Oral 0 ml IV Total 300 ml Output Urine Total 2950 ml Daily Weight Change No General: Alert, Oriented X3, Cooperative, No Acute Distress HEENT: Atraumatic, EOMI, Mucous Memb Moist/[place] Neck: Supple, No Thyromegaly Lungs: Other (mild scattered wheezes, diminished in bilateral bases) Heart: Regular Rate, Normal S1, Normal S2 Abdomen: Normal Bowel Sounds, Soft, No Tenderness, No Masses Extremities: No Cyanosis, Normal Pulses Skin: No Rashes, Other (right hip dressing clean, dry and intact) Neuro: Normal Speech, Sensation Intact, Cranial Nerves 3-12 NL Psych/Mental Status: Mental Status NL, Mood NL Results/Procedures Lab Laboratory Tests 08/04/18 02:59: White Blood Count 11.2H, Red Blood Count 4.08L, Hemoglobin 12.8, Hematocrit 40, Mean Corpuscular Volume 99, Mean Corpuscular Hemoglobin 31, Mean Corpuscular Hemoglobin Concent 32, Red Cell Distribution Width 14.7H, Platelet Count 152, Mean Platelet Volume 10.5H, Sodium Level 130L, Potassium Level 5.4H, Chloride Level 98, Carbon Dioxide Level 24, Anion Gap 8, Blood Urea Nitrogen 9, Creatinine 0.61, Estimat Glomerular Filtration Rate > 60, BUN/Creatinine Ratio 15, Glucose Level 119H, Calcium Level 8.3L, Corrected Calcium 9.1, Magnesium Level 1.9, Total Bilirubin 0.5, Aspartate Amino Transf (AST/SGOT) 20, Alanine Aminotransferase (ALT/SGPT) 13, Alkaline Phosphatase 74, Total Protein 6.1L, Albumin 3.0L Microbiology 08/03/18 MRSA Screen - Final, Complete MRSA not isolated Assessment/Plan Assessment/Plan (1) Hip fracture, right Status: Acute Assessment & Plan: - Managed by Ortho 08/04 POD #1 s/p repair, continue to defer to ortho PT feels patient would be good candidate for inpatient rehab when ready for discharge from acute; will place consult for evaluation Qualifiers: Qualified Codes: S72.001A - Fracture of unspecified part of neck of right femur, initial encounter for closed fracture (2) CAD (coronary artery disease) Status: Chronic Assessment & Plan: - Holding anti-platelet meds for surgery, will restart when ok with surgery 08/04 -vitals stable -Cardiology consulted and will defer management to Dr. Ervin Qualifiers: Qualified Codes: I25.118 - Atherosclerotic heart disease of [place] coronary artery with other forms of angina pectoris (3) Asthma Status: Chronic Assessment & Plan: - Start MAT protocol, Flutter valve at surgery 08/04 -pt with extreme reluctance to use flutter valve, even with frequent reminders from nursing staff -continue MAT protocol -stable on RA at this time, easy pap PRN Qualifiers: Qualified Codes: J45.30 - Mild persistent asthma, uncomplicated (4) HTN (hypertension) Status: Chronic Assessment & Plan: - Will hold BP meds after surgery and restart as needed 08/04 -blood pressure stable -Cardiology also managing Qualifiers: Qualified Codes: I10 - Essential (primary) hypertension (5) Chronic pain Status: Chronic Assessment & Plan: - Patient will likely need increased pain medication after surgery due to tolerance 08/04 -patient feels pain well controlled with current medications at this time Qualifiers: Qualified Codes: G89.4 - Chronic pain syndrome (6) Tobacco abuse Status: Chronic Assessment & Plan: - Discussed the importance of cessation 08/04 -reinforced that cessation strongly encouraged (7) DVT prophylaxis Status: Acute Assessment & Plan: - Lovenox to start tomorrow if ok surgery 08/04 -restart chemoprophylaxis when okay with surgical team Clinical Quality Measures DVT/VTE Risk/Contraindication: Risk Factor Score Per Nursin RFS Level Per Nursing on Admit: 4+=Very High Copy Copies To 1: CEASAR SNYDER MD, MARGARET E DO Aug 04, 2018 15:21
[2018-08-04] MEDS ORDERED: KETOROLAC 30 MG/ML VIAL IVP NR (17:00)
[2018-08-04] MEDS: RT-ALBUTEROL/IPRATROPIUM 3 ML (DUONEB) VIAL INH SCH ×2 (18:39→21:12)
[2018-08-04] MEDS: DOCUSATE SODIUM 100 MG (COLACE) CAP PO SCH (20:46)
[2018-08-04] MEDS: ATORVASTATIN 40 MG (LIPITOR) TABLET PO SCH (20:48)
[2018-08-05] VITALS (19 sets, daily range): BP systolic 101–157; BP diastolic 50–97
[2018-08-05] MEDS: RT-ALBUTEROL/IPRATROPIUM 3 ML (DUONEB) VIAL INH SCH ×6 (01:18→21:36)
[2018-08-05] MEDS: fentaNYL INJECTION 100 MCG/2 ML AMP IV PRN ×4 (01:35→16:16)
[2018-08-05 04:30] LABS: HEMOGLOBIN 11.3 G/DL (11.5-16.0); MEAN PLATELET VOLUME 10.5 FL (7.4-10.4); RED BLOOD COUNT 3.57 10^6/uL (4.35-5.85); WHITE BLOOD COUNT 6.8 10^3/uL (4.3-11.0)
[2018-08-05 04:47] LABS: BUN/CREATININE RATIO 18; CALCIUM 8.2 MG/DL (8.5-10.1); CARBON DIOXIDE 24 MMOL/L (21-32); CHLORIDE 99 MMOL/L (98-107); CREATININE SERUM 0.55 MG/DL (0.60-1.30); GFR ESTIMATED > 60; GLUCOSE 79 MG/DL (70-105); MAGNESIUM 1.7 MG/DL (1.8-2.4); POTASSIUM 4.5 MMOL/L (3.6-5.0); SODIUM 130 MMOL/L (135-145)
[2018-08-05] MEDS ORDERED: MAGNESIUM 1 GM/100 ML IVPB 100 ML IV SCH (06:00)
[2018-08-05] MEDS ORDERED: KCL 20 MEQ TAB (K-DUR) PO SCH (06:00)
[2018-08-05] MEDS ORDERED: POTASSIUM CL 10MEQ/50ML IVPB 50 ML IV SCH (06:00)
--- NOTE | 2018-08-05 06:14 | Progress Note (SOAP) ---
Subjective Date Seen by a Provider: Aug 05, 2018 Time Seen by a Provider: 06:12 Subjective/Events-last exam Pain control much better No complaints today Objective Exam Vital Signs Date Time Temp Pulse Resp B/P (MAP) Pulse Ox O2 Delivery O2 Flow Rate FiO2 08/05/18 04:00 Nasal Cannula 2.00 08/05/18 02:00 71 22 112/67 (82) 92 Nasal Cannula 2.00 08/05/18 01:18 94 Nasal Cannula 2.00 08/05/18 01:00 70 08/05/18 01:00 70 14 120/71 (87) 94 Nasal Cannula 2.00 08/05/18 00:00 Nasal Cannula 2.00 08/05/18 00:00 61 12 123/68 (86) 94 Nasal Cannula 2.00 08/04/18 23:00 67 13 119/67 (84) 94 Nasal Cannula 2.00 08/04/18 22:00 66 16 120/59 (79) 93 Nasal Cannula 2.00 08/04/18 21:12 94 Nasal Cannula 2.00 08/04/18 21:00 74 14 136/70 (92) 93 Nasal Cannula 2.00 08/04/18 20:00 73 14 121/74 (90) 93 Nasal Cannula 2.00 08/04/18 20:00 Nasal Cannula 2.00 08/04/18 19:00 74 08/04/18 19:00 74 13 123/65 (84) 91 Nasal Cannula 2.00 08/04/18 18:39 92 Nasal Cannula 2.00 08/04/18 18:00 75 11 136/82 (100) 92 Nasal Cannula 2.00 08/04/18 17:00 74 16 123/67 (85) 93 Nasal Cannula 2.00 08/04/18 16:00 Nasal Cannula 2.00 08/04/18 16:00 98.3 Nasal Cannula 2.00 08/04/18 16:00 73 16 125/76 (92) 92 Nasal Cannula 2.00 08/04/18 15:59 73 94 08/04/18 15:00 73 15 114/73 (87) 91 Nasal Cannula 2.00 08/04/18 14:00 73 17 111/72 (85) 94 Nasal Cannula 2.00 08/04/18 13:00 76 18 94 Nasal Cannula 2.00 08/04/18 13:00 77 08/04/18 12:10 Nasal Cannula 2.00 08/04/18 12:10 98.2 Nasal Cannula 2.00 08/04/18 12:00 78 19 144/91 (108) 90 Nasal Cannula 2.00 08/04/18 11:00 74 17 146/92 (110) 91 Nasal Cannula 2.00 08/04/18 10:00 86 23 134/80 (98) 98 Nasal Cannula 2.00 08/04/18 09:00 90 18 152/79 (103) 98 Nasal Cannula 2.00 08/04/18 08:58 Nasal Cannula 2.00 08/04/18 08:05 100.0 Nasal Cannula 2.00 08/04/18 08:05 Nasal Cannula 2.00 08/04/18 08:00 89 12 148/73 (98) 99 Nasal Cannula 2.00 08/04/18 07:00 85 08/04/18 07:00 86 15 149/78 (101) 97 Nasal Cannula 2.00 I & O 08/05/18 07:00 Intake Total 2560 ml Output Total 1225 ml Balance 1335 ml Capillary Refill : Less Than 3 SecondsLess Than 3 Seconds General Appearance: No Apparent Distress Neck: Supple Respiratory: No Accessory Muscle Use, No Respiratory Distress Cardiovascular: Regular Rate, Rhythm, Normal Peripheral Pulses Gastrointestinal: soft Extremity: Normal Capillary Refill, No Calf Tenderness Neurologic/Psychiatric: Alert, Oriented x3, No Motor/Sensory Deficits Results Lab Laboratory Tests 08/05/18 04:20: White Blood Count 6.8, Red Blood Count 3.57L, Hemoglobin 11.3L, Hematocrit 34L, Mean Corpuscular Volume 96, Mean Corpuscular Hemoglobin 32, Mean Corpuscular Hemoglobin Concent 33, Red Cell Distribution Width 14.0, Platelet Count 124L, Mean Platelet Volume 10.5H, Sodium Level 130L, Potassium Level 4.5, Chloride Level 99, Carbon Dioxide Level 24, Anion Gap 7, Blood Urea Nitrogen 10, Creatinine 0.55L, Estimat Glomerular Filtration Rate > 60, BUN/Creatinine Ratio 18, Glucose Level 79, Calcium Level 8.2L, Magnesium Level 1.7L Microbiology 08/03/18 MRSA Screen - Final, Complete MRSA not isolated Assessment/Plan Assessment/Plan Assess & Plan/Chief Complaint Right Hip IT fracture, s/p IM nailing. Hypocalcemia/hypomagnesemia Up with PT Continue Current Care Likely to floor today Replace electrolytes Clinical Quality Measures DVT/VTE Risk/Contraindication: Risk Factor Score Per Nursin RFS Level Per Nursing on Admit: 4+=Very High KAILYN ROSE MD Aug 05, 2018 6:14 am
--- NOTE | 2018-08-05 07:19 | Diagnostic Imaging Report ---
EXAM: HIP, RIGHT, 2 VIEWS INDICATION: Right hip fracture. COMPARISON: Pelvis radiograph 08/03/2018. FINDINGS: New intramedullary piper and dynamic hip screw fixation of the right hip. Hardware components appear intact. The hip screw appears to breach the cortex of the right femoral head. Soft tissue shadows are unremarkable. IMPRESSION: New intramedullary piper and dynamic hip screw fixation of the right intertrochanteric right hip fracture. The dynamic hip screw appears to breach the cortex of the right femoral head. Dictated by: Dictated on workstation # [id number]
[2018-08-05] MEDS: PANTOPRAZOLE 40 MG (PROTONIX) TAB PO SCH (07:53)
[2018-08-05] MEDS: MAGNESIUM 1 GM/100 ML IVPB 100 ML IV SCH ×2 (07:54→08:52)
[2018-08-05] MEDS: 1/2 NS IV SOLUTION 1,000 ML IV SCH ×2 (07:54→15:46)
[2018-08-05] MEDS: GABAPENTIN 600 MG (NEURONTIN) TAB PO SCH ×3 (08:50→20:28)
[2018-08-05] MEDS: lisINopril 10 MG (PRINIVIL) TABLET PO SCH (08:50)
[2018-08-05] MEDS: ASPIRIN E.C. 325 MG (ECOTRIN) TABLET PO SCH (08:50)
[2018-08-05] MEDS: MAGNESIUM OXIDE (MAG-OX)400 MG TAB PO SCH (08:50)
[2018-08-05] MEDS: DOCUSATE SODIUM 100 MG (COLACE) CAP PO SCH ×3 (08:50→20:39)
[2018-08-05] MEDS: FAMOTIDINE 20 MG (PEPCID) TABLET PO SCH (08:50)
[2018-08-05] MEDS: morphine ER 15 MG (MS CONTIN) TAB PO SCH ×2 (08:50→20:40)
[2018-08-05] MEDS: PARoxetine 20 MG (PAXIL) TAB PO SCH (08:51)
[2018-08-05] MEDS: meTOprolol TARTRATE 50 MG (LOPRESSOR) TAB PO SCH ×2 (08:51→20:40)
[2018-08-05] MEDS: CLOPIDOGREL 75 MG (PLAVIX) TABLET PO SCH (08:51)
[2018-08-05] MEDS: ENOXAPARIN 30 MG/0.3 ML (LOVENOX) SYR SC SCH (08:52)
[2018-08-05] MEDS: KCL 10 MEQ TAB (MICRO K) PO SCH (09:13)
--- NOTE | 2018-08-05 09:17 | Physical Therapy Daily Note ---
PT Daily Note-Current Subjective Patient much more alert and agreeable to participate with PT. Pain Numeric Pain Scale: 9 Location: Right Location Body Site: Hip Pain Description: Acute Comment: with meds issued Mental Status Patient Orientation: Normal For Age Attachments: Oxygen, Hsieh Catheter, IV Transfers Functional Long Measure 0=Not Assessed/NA 4=Minimal Assistance 1=Total Assistance 5=Supervision or Setup 2=Maximal Assistance 6=Modified Long 3=Moderate Assistance 7=Complete IndependenceIRFPAI Quality Coding Scale 6 Independent with activity with or without an assistive device 5 Patient requires set up or clean up by helper. Patient completes activity by themselves 4 Supervision or touching assist (CGA). [place] provide cues , steadying assist 3 The helper provides less than half the effort to complete the activity 2 The helper provides more than half the effort to complete the activity 1 Dependent. The helper does all the effort to complete an activity 7 Patient refused to complete or attempt activity 9 The patient did not perform the activity before the current illness or injury 88 Not attempted due to Medical conditions or safety concerns Transfers (B, C, W/C) (FIM): 4 Scootin Rollin Supine to/from Sit: 4 Sit to/from Stand: 4 Bed to/from Chair: 4 assist for right LE only Weight Bearing Right Lower Extremity: Right Full Weight Bearing Left Lower Extremity: Left Full Weight Bearing Gait Training Gait (FIM): 2 Distance (FIM): 8=959-00 ft Distance: 125' Gait Level of Assist: 4 Gait Persons Needed: 1 Gait Assistive Device: FWW slow, slightly antalgic Exercises Supine Ex: Ankle pumps, Quad Set, Heel Slides Supine Reps: 15 Seated Therapy Exercises: Ankle pumps, Long arc quads Seated Reps: 15 Assessment Patient tolerated treatment well and is up in recliner with needs met. PT to increase activity as tolerated by patient. PT Short Term Goals Short Term Goals Time Frame: Aug 21, 2018 Transfers (B,C,W/C) (FIM): 3 Gait (FIM): 1 Distance (FIM): 1=up to 49 ft Gait Distance Comment: 45' Gait Level of Assist: 3 Gait Assistive Device: FWW PT Half-Way Goals Half-Way Goals PT Gasoline Truck Operator Goals Time Frame: Aug 30, 2018 Transfers (B,C,W/C) (FIM): 5 Gait (FIM): 5 Gait distance (FIM): 3=150 ft Distance: 150' Gait Level of Assist: 5 Gait Assistive Device: FWW PT Plan Treatment/Plan Treatment Plan: Continue Plan of Care Treatment Plan: Bed Mobility, Education, Functional Activity Wilbert, Functional Strength, Gait, Safety, Therapeutic Exercise, Transfers Treatment Duration: Aug 30, 2018 Frequency: 11 times per week Estimated Hrs Per Day: .5 hour per day Patient and/or Family Agrees t: Yes (family) Time/GCodes Time In: 830 Time Out: 854 Total Billed Treatment Time: 24 Total Billed Treatment 1 visit EX 14 min GT 10 min NIDA MYLES PT Aug 05, 2018 09:17
[2018-08-05] MEDS: ALPRAZolam 1 MG (XANAX) TAB PO PRN ×2 (10:53→20:28)
--- NOTE | 2018-08-05 11:05 | Physical Therapy Daily Note ---
PT Daily Note-Current Subjective Patient agrees to PT. Pain Numeric Pain Scale: 7 Location: Right Location Body Site: Hip Pain Description: Acute Mental Status Patient Orientation: Normal For Age Attachments: Oxygen, Hsieh Catheter, IV Transfers Functional [place] Measure 0=Not Assessed/NA 4=Minimal Assistance 1=Total Assistance 5=Supervision or Setup 2=Maximal Assistance 6=Modified [place] 3=Moderate Assistance 7=Complete IndependenceIRFPAI Quality Coding Scale 6 Independent with activity with or without an assistive device 5 Patient requires set up or clean up by helper. Patient completes activity by themselves 4 Supervision or touching assist (CGA). [place] provide cues , steadying assist 3 The helper provides less than half the effort to complete the activity 2 The helper provides more than half the effort to complete the activity 1 Dependent. The helper does all the effort to complete an activity 7 Patient refused to complete or attempt activity 9 The patient did not perform the activity before the current illness or injury 88 Not attempted due to Medical conditions or safety concerns Transfers (B, C, W/C) (FIM): 5 Scootin Sit to/from Stand: 5 Weight Bearing Right Lower Extremity: Right Full Weight Bearing Left Lower Extremity: Left Full Weight Bearing Gait Training Gait (FIM): 5 Distance (FIM): 3=150 ft Distance: 175' Gait Level of Assist: 5 Gait Assistive Device: FWW slow, antalgic Exercises Supine Ex: Ankle pumps, Quad Set, Heel Slides Supine Reps: 15 Seated Therapy Exercises: Ankle pumps, Long arc quads Seated Reps: 15 Assessment Patient is progressing with treatment plan. She remains up in recliner with needs met. PT Short Term Goals Short Term Goals Time Frame: Aug 21, 2018 Transfers (B,C,W/C) (FIM): 3 Gait (FIM): 1 Distance (FIM): 1=up to 49 ft Gait Distance Comment: 45' Gait Level of Assist: 3 Gait Assistive Device: FWW PT Care Home Goals Global Human Resources Director Goals PT Care Home Goals Time Frame: Aug 30, 2018 Transfers (B,C,W/C) (FIM): 5 Gait (FIM): 5 Gait distance (FIM): 3=150 ft Distance: 150' Gait Level of Assist: 5 Gait Assistive Device: FWW PT Plan Treatment/Plan Treatment Plan: Continue Plan of Care Treatment Plan: Bed Mobility, Education, Functional Activity Wilbert, Functional Strength, Gait, Safety, Therapeutic Exercise, Transfers Treatment Duration: Aug 30, 2018 Frequency: 11 times per week Estimated Hrs Per Day: .5 hour per day Patient and/or Family Agrees t: Yes (family) Time/GCodes Time In: 1011 Time Out: 1034 Total Billed Treatment Time: 23 Total Billed Treatment 1 visit EX 10 min GT 13 min NIDA MYLES PT Aug 05, 2018 11:05
--- NOTE | 2018-08-05 11:09 | Progress Note (SOAP) ---
Subjective Subjective/Events-last exam Patient without significant complaints today. Has done well with therapy per nursing staff. Patient reports her oral pain medication is not lasting to control her pain -- her baseline home pain medication is Morphine ER 15 mg BID. Okay to transfer to floor per ortho. Stable from cardiology standpoint. Was seen by social work professor and considered a good candidate for inpatient rehab; insurance company being contacted to see if she is approved. Having some bleeding around surgical dressing. No other concerns. Review of Systems Date Seen by Provider: Aug 05, 2018 Time Seen by Provider: 16:45 General: No Chills, No Night Sweats, No Fatigue HEENT: No Head Aches, No Dysphasia Pulmonary: No Dyspnea, No Cough Cardiovascular: No: Chest Pain, Palpitations Gastrointestinal: No: Nausea, Vomiting, Abdominal Pain Genitourinary: No Dysuria Musculoskeletal: other (hip) Neurological: Weakness; No: Numbness, Incoordination, Change in speech, Seizures Objective Exam Last Set of Vital Signs Vital Signs Date Time Temp Pulse Resp B/P (MAP) Pulse Ox O2 Delivery O2 Flow Rate FiO2 08/05/18 10:32 97 Nasal Cannula 2.00 08/05/18 07:24 98.3 08/05/18 07:00 79 08/05/18 06:00 16 154/97 (116) 08/03/18 04:20 28 Capillary Refill : Less Than 3 SecondsLess Than 3 Seconds I&O Intake and Output 08/05/18 00:00 Intake Total 2560 ml Output Total 1700 ml Balance 860 ml Intake Oral 500 ml IV Total 2060 ml Output Urine Total 1700 ml General: Alert, Oriented X3, Cooperative, No Acute Distress HEENT: Atraumatic, EOMI, Mucous Memb Moist/[place] Neck: Supple, No Thyromegaly Lungs: Other (diminished in bases, otherwise normal) Heart: Regular Rate, Normal S1, Normal S2 Abdomen: Normal Bowel Sounds, Soft, No Tenderness, No Masses Extremities: No Cyanosis, Other (right hip dressing in place) Skin: No Rashes, No Breakdown Neuro: Normal Speech, Normal Tone, Sensation Intact, Cranial Nerves 3-12 NL Psych/Mental Status: Mental Status NL, Mood NL Results/Procedures Lab Laboratory Tests 08/05/18 04:20: White Blood Count 6.8, Red Blood Count 3.57L, Hemoglobin 11.3L, Hematocrit 34L, Mean Corpuscular Volume 96, Mean Corpuscular Hemoglobin 32, Mean Corpuscular Hemoglobin Concent 33, Red Cell Distribution Width 14.0, Platelet Count 124L, Mean Platelet Volume 10.5H, Sodium Level 130L, Potassium Level 4.5, Chloride Level 99, Carbon Dioxide Level 24, Anion Gap 7, Blood Urea Nitrogen 10, Creatinine 0.55L, Estimat Glomerular Filtration Rate > 60, BUN/Creatinine Ratio 18, Glucose Level 79, Calcium Level 8.2L, Magnesium Level 1.7L Microbiology 08/03/18 MRSA Screen - Final, Complete MRSA not isolated Radiology Date of Exam: 08/05/18 HIP, RIGHT, 2 VIEWS EXAM: HIP, RIGHT, 2 VIEWS INDICATION: Right hip fracture. COMPARISON: Pelvis radiograph 08/03/2018. FINDINGS: New intramedullary piper and dynamic hip screw fixation of the right hip. Hardware components appear intact. The hip screw appears to breach the cortex of the right femoral head. Soft tissue shadows are unremarkable. IMPRESSION: New intramedullary piper and dynamic hip screw fixation of the right intertrochanteric right hip fracture. The dynamic hip screw appears to breach the cortex of the right femoral head. Assessment/Plan Assessment/Plan (1) Hip fracture, right Status: Acute Assessment & Plan: - Managed by Ortho 08/04 POD #1 s/p repair, continue to defer to ortho PT feels patient would be good candidate for inpatient rehab when ready for discharge from acute; will place consult for evaluation 08/05 -good candidate for IRF, submitting for approval to insurance -working well with PT -increase home pain meds -ok to transfer to floor from ortho standpoint, okay from medical standpoint as well Qualifiers: Qualified Codes: S72.001A - Fracture of unspecified part of neck of right femur, initial encounter for closed fracture (2) CAD (coronary artery disease) Status: Chronic Assessment & Plan: - Holding anti-platelet meds for surgery, will restart when ok with surgery 08/04 -vitals stable -Cardiology consulted and will defer management to Dr. Brooke 08/05 -no cardiac complaints Qualifiers: Qualified Codes: I25.118 - Atherosclerotic heart disease of [place] coronary artery with other forms of angina pectoris (3) Asthma Status: Chronic Assessment & Plan: - Start MAT protocol, Flutter valve at surgery 08/04 -pt with extreme reluctance to use flutter valve, even with frequent reminders from nursing staff -continue MAT protocol -stable on RA at this time, easy pap PRN 08/05 -awake and alert, stable on 2L NC -continue MAT protocol Qualifiers: Qualified Codes: J45.30 - Mild persistent asthma, uncomplicated (4) HTN (hypertension) Status: Chronic Assessment & Plan: - Will hold BP meds after surgery and restart as needed 08/04 -blood pressure stable -Cardiology also managing 08/05 -somewhat hypertensive overnight, but resolved by the time of exam Qualifiers: Qualified Codes: I10 - Essential (primary) hypertension (5) Chronic pain Status: Chronic Assessment & Plan: - Patient will likely need increased pain medication after surgery due to tolerance 08/04 -patient feels pain well controlled with current medications at this time 08/05 -pt has required IV fentanyl about every four hours -home dose of pain medication is morphine er 15 mg BID, which is what is currently ordered -will increased to Morphine ER 15 mg TID and oxycodone 5 mg Q2H PRN severe pain and see if pt can wean off IV pain medication -if needed, can consider increasing Morphine ER dose depending on how much additional medication patient needs after frequency increased Qualifiers: Qualified Codes: G89.4 - Chronic pain syndrome (6) Tobacco abuse Status: Chronic Assessment & Plan: - Discussed the importance of cessation 08/04 -reinforced that cessation strongly encouraged (7) DVT prophylaxis Status: Acute Assessment & Plan: - Lovenox to start tomorrow if ok surgery 08/04 -restart chemoprophylaxis when okay with surgical team 08/05 -Lovenox daily restarted yesterday -continue SCDs (8) Hyponatremia Status: Acute Assessment & Plan: 08/05 -Na 137 on admission, down to 130, remains 130 today -stop 1/2 NS at 125 cc/hr -NS at 75 cc/hr, recheck in AM -asymptomatic Clinical Quality Measures DVT/VTE Risk/Contraindication: Risk Factor Score Per Nursin RFS Level Per Nursing on Admit: 4+=Very High Copy Copies To 1: CEASAR SNYDER MD, MARGARET E DO Aug 05, 2018 11:09
--- NOTE | 2018-08-05 13:15 | Cardiology Progress Note ---
Cardiology SOAP Progress Note Subjective: No cardiac complaints. Objective: I&O/Vital Signs 08/05/18 08/05/18 08/05/18 08/05/18 01:18 02:00 03:00 04:00 Temp 97.2 Pulse 71 67 Resp 22 14 B/P (MAP) 112/67 (82) 132/82 (99) Pulse Ox 94 92 94 O2 Delivery Nasal Cannula Nasal Cannula Nasal Cannula O2 Flow Rate 2.00 2.00 2.00 08/05/18 08/05/18 08/05/18 08/05/18 04:00 04:00 05:00 06:00 Pulse 71 70 70 Resp 16 19 16 B/P (MAP) 134/79 (97) 144/85 (104) 154/97 (116) Pulse Ox 94 94 96 O2 Delivery Nasal Cannula Nasal Cannula Nasal Cannula Nasal Cannula O2 Flow Rate 2.00 2.00 2.00 2.00 08/05/18 08/05/18 08/05/18 08/05/18 06:55 07:00 07:00 07:24 Temp 98.3 Pulse 79 75 Resp 15 B/P (MAP) 157/93 (114) Pulse Ox 95 100 O2 Delivery Nasal Cannula Nasal Cannula Nasal Cannula O2 Flow Rate 2.00 2.00 2.00 08/05/18 08/05/18 08/05/18 08/05/18 08:00 09:00 10:00 10:32 Pulse 77 79 73 Resp 19 16 18 B/P (MAP) 131/74 (93) 138/78 (98) 117/64 (81) Pulse Ox 95 97 O2 Delivery Nasal Cannula Nasal Cannula Nasal Cannula Nasal Cannula O2 Flow Rate 2.00 2.00 2.00 2.00 08/05/18 08/05/18 08/05/18 11:00 11:47 12:00 Temp 100.1 Pulse 78 76 Resp 14 17 B/P (MAP) 118/50 (72) 101/73 (82) Pulse Ox 92 O2 Delivery Nasal Cannula Nasal Cannula Nasal Cannula O2 Flow Rate 2.00 2.00 2.00 08/05/18 00:00 Intake Total 1460 ml Output Total 825 ml Balance 635 ml Weight (Pounds): 101 Weight (Ounces): 2.0 Weight (Calculated Kilograms): [id number] Constitutional: No appears stated age, No AAO x 3, No apparent distress, No PERRL, No well-developed, No well-nourished, No other Respiratory: No accessory muscle use, No respiratory distress, No chest tender , No chest expansion is symmetric; chest is bilaterally symmetric; No lungs clear to percussion; lungs clear to auscultation; No crackles, No rhonchi, No rales, No stridor, No wheezing, No pleural rub, No other Cardiovascular: regular rate-rhythm; No irregularly irregular, No extra beats, No parasternal heave is noted, No JVD, No edema, No bradycardia, No tachycardia , No point of maximal impulse, No cardiac thrills are palpable; S1 and S2; No gallop/S3, No gallop/S4, No diastolic murmur, No systolic murmur, No friction rub, No click, No other Gastrointestional: No tender, No soft, No round, No distended, No pulsatile mass, No organomegaly, No guarding, No rebound, No tenderness, No hernia, No mass, No audible bowel sounds, No abnormal bowel sounds, No abdominal bruits, No spleenomegaly, No other Extremities: No normal range of motion, No non-tender, No normal inspection, No pedal edema, No calf tenderness, No normal capillary refill, No pelvis stable , No calf tenderness, No inflammation, No pedal edema, No slow capillary refill , No swelling, No other, No abrasion, No clubbing, No cyanosis, No ecchymosis, No laceration, No no lower extremity edema bilateral, No significant edema; tenderness; No wound Neurologic/Psychiatric: no motor/sensory deficits, alert, normal mood/affect, oriented x 3 Skin: No normal color, No warm/dry, No cyanosis, No cool, No diaphoresis, No damp, No ecchymosis, No jaundice, No mottled, No pallor, No rash, No tattoos/ piercings, No ulcerations, No rash on exposed areas, No ulcerations on exposed areas, No other Results/Procedures: Labs Laboratory Tests 08/05/18 04:20: White Blood Count 6.8, Red Blood Count 3.57L, Hemoglobin 11.3L, Hematocrit 34L, Mean Corpuscular Volume 96, Mean Corpuscular Hemoglobin 32, Mean Corpuscular Hemoglobin Concent 33, Red Cell Distribution Width 14.0, Platelet Count 124L, Mean Platelet Volume 10.5H, Sodium Level 130L, Potassium Level 4.5, Chloride Level 99, Carbon Dioxide Level 24, Anion Gap 7, Blood Urea Nitrogen 10, Creatinine 0.55L, Estimat Glomerular Filtration Rate > 60, BUN/Creatinine Ratio 18, Glucose Level 79, Calcium Level 8.2L, Magnesium Level 1.7L Microbiology 08/03/18 MRSA Screen - Final, Complete MRSA not isolated A/P: Assessment/Dx: Admission Diagnosis Chest pain Coronary artery disease Hypertension Hyperlipidemia Hip fracture Plan: Assessment/Plan Coronary artery disease, history of old myocardial infarction with multiple stents in the past, in 2000 she had proximal and distal circumflex stent 3.013 and 2.513 done in [place]. Had a cardiac catheterization done by Dr. Brooke in November 2017 which showed mild ostial left main coronary artery stenosis, LAD had patent stent with mild diffuse disease, circumflex artery has patent first obtuse marginal artery stent and after the first obtuse marginal branch in the mid circumflex there is a stent which has severe in-stent restenosis and distal to the first stent there is another stent that is occluded, failed attempt to intervention at that time. Patient had moderate diffuse disease in the right coronary artery that was treated medically. Patient had mild apical hypokinesis with ejection fraction 45-50 percent. Recurrent chest pain, treated conservatively for which she takes nitroglycerin sublingual Shortness of breath, history of COPD. Peripheral arterial disease, claudication, peripheral angiogram was done in September 2017 which showed [id number] disease in the distal abdominal aorta, mild to moderate disease diffusely down to the trifurcation with no obstructive disease Hypertension, history of borderline low blood pressure. Monitor blood pressure Hyperlipidemia, maintained on statin Pulmonary hypertension Valvular heart disease with moderate mitral regurgitation, moderate to severe tricuspid regurgitation Tobaccoism, still an active smoker. Right hip surgery postoperative day 2 done by orthopedics Thank you for your consultation. Please call me if you have any questions. Luis Brooke MD, FACP, FACC, FSCAI, FHRS, CCDS Interventional Cardiology Cardiac Electrophysiology Vascular Medicine and Endovascular Interventions Aimee BROOKE MD Aug 05, 2018 1:15 pm
--- NOTE | 2018-08-05 13:34 | Occupational Therapy Eval ---
OT Evaluation-General/PLF Medical Diagnosis Admission Date Aug 03, 2018 at 01:45 Medical Diagnosis: right hip fracture Onset Date: Aug 03, 2018 Therapy Diagnosis Therapy Diagnosis: impaired self care skills Height/Weight Height (Feet): 5 Height (Inches): 0.00 Weight (Pounds): 101 Weight (Ounces): 2.0 Precautions Precautions/Isolations: Droplet Isolation, Fall Prevention, Pressure Ulcer Safety Interventions: Bed Exit Alarm, Reorient-PRN Referral Physician: Karlo Medical History Pertinent Medical History: Arthritis, CAD, COPD, GERD, HTN, NC, Smoking Additional Medical History coronary stent, crohn's disease, RLS, chronic back pain, sleep difficulties, anxiety, PTSD, bipolar, depression. Current History Pt admitted with right hip fracture. Now s/p surgical intervention. Social History Home: Single Level Current Living Status: Other Family Entry Into Home: Stairs With Railing Steps Into Home: 2 ADL-Prior Level of Function ADL PLOF Comments Pt reports being independent with self care and mobility. Uses cane for mobility. DME/Equipment: Bath Chair, Grab Bars Drive Self: Yes (Pt states she can drive, but sister usually does the driving.) OT Current Status Subjective Pt in bed, agrees to treatment. Pt reports 9/10 pain in right hip. RN notified and provided pain medication. Mental Status/Objective Patient Orientation: Person, Situation Attachments: Hsieh Catheter, IV, Oxygen Current Glasses/Contacts: Yes Hearing Aids: No Dentures/Partials: Yes Hand Dominance: Right Upper Extremity ROM Grossly WFL Upper Extremity Coordination Intact Upper Extremity Sensation Intact per pt report Upper Extremity Strength Grossly 4/5 ADL-Treatment ADL-Current Pt supine to sit with minimal assistance for right LE. Pt sat EOB with good balance during ADL activity. Pt reports pain in right hip, but agrees to ADL training. Education provided regarding use of adaptive equipment for LE dressing. Pt doffed socks with SBA using dressing stick. Donned socks with SBA and verbal cues using sock aid. Sit to stand with CGA and sidesteps to HOB with FWW. Pt sit to supine with minimal assistance for right LE. Pt resting in bed with needs met after session. Functional [place] Measure 0=Not Assessed/NA 4=Minimal Assistance 1=Total Assistance 5=Supervision or Setup 2=Maximal Assistance 6=Modified [place] 3=Moderate Assistance 7=Complete IndependenceIRFPAI Quality Coding Scale 6 Independent with activity with or without an assistive device 5 Patient requires set up or clean up by helper. Patient completes activity by themselves 4 Supervision or touching assist (CGA). [place] provide cues , steadying assist 3 The helper provides less than half the effort to complete the activity 2 The helper provides more than half the effort to complete the activity 1 Dependent. The helper does all the effort to complete an activity 7 Patient refused to complete or attempt activity 9 The patient did not perform the activity before the current illness or injury 88 Not attempted due to Medical conditions or safety concerns Eating (FIM): 5 (Pt reports no difficulty feeding herself.) Education OT Patient Education: Rehab process Teaching Recipient: Patient Teaching Methods: Discussion Response to Teaching: Verbalize Understanding OT Short Term Goals Short Term Goals Transfers (B,C,W/C) (FIM): 3 1=Demonstrate adherence to instructed precautions during ADL tasks. 2=Patient will verbalize/demonstrate understanding of assistive devices/ modifications for ADL. 3=Patient will improve strength/tolerance for activity to enable patient to perform ADL's. OT Manufacturing Automation Engineer Goals Manufacturing Automation Engineer Goals Time Frame: Aug 26, 2018 Eating (FIM): 6 Grooming(FIM): 6 Bathing(FIM): 5 Upper Body Dressing(FIM): 6 Lower Body Dressing(FIM): 5 Toileting(FIM): 6 Toilet/Commode Transfer(FIM): 6 Shower Transfer(FIM): 5 Additional Goals: 1-Demonstrate ADL Tasks, 2-Verbalize Understanding, 3- ImproveStrength/[place] 1=Demonstrate adherence to instructed precautions during ADL tasks. 2=Patient will verbalize/demonstrate understanding of assistive devices/ modifications for ADL. 3=Patient will improve strength/tolerance for activity to enable patient to perform ADL's. OT Education/Plan Problem List/Assessment Assessment: Decreased Activ Tolerance, Decreased UE Strength, Dependent Transfers, Impaired Self-Care Skills Pt demonstrates decreased mobility, strength, activity tolerance, and ADL functioning. Pt to benefit from skilled OT intervention for ADL training, transfers, strengthening, and home safety education to increase functional independence and allow safe discharge home. Discharge Recommendations Plan/Recommendations: Continue POC Treatment Plan/Plan of Care Treatment,Training & Education: Yes Patient would benefit from OT for education, treatment and training to promote independence in ADL's, mobility, safety and/or upper extremity function for ADL' s. Plan of Care: ADL Retraining, Functional Mobility, UE Funct Exercise/Act Treatment Duration: Aug 26, 2018 Frequency: 5 times per week Estimated Hrs Per Day: .25 hour per day Rehab Potential: Good Time/GCodes Start Time: 13:05 Stop Time: 13:25 Total Time Billed (hr/min): 20 Billed Treatment Time 1 visit, SHARITA(20minutes) SCOTT WHITE OT Aug 05, 2018 13:34
[2018-08-05] MEDS: NS W/KCL 20 MEQ/L 1,000 ML IV SCH (20:40)
[2018-08-05] MEDS: ATORVASTATIN 40 MG (LIPITOR) TABLET PO SCH (20:40)
[2018-08-06] VITALS: BP 128/64
[2018-08-06] MEDS: RT-ALBUTEROL/IPRATROPIUM 3 ML (DUONEB) VIAL INH SCH ×6 (02:14→22:00)
[2018-08-06 04:00] VITALS: BP 113/59
--- NOTE | 2018-08-06 04:55 | Progress Note (SOAP) ---
Subjective Date Seen by a Provider: Aug 06, 2018 Time Seen by a Provider: 04:45 Subjective/Events-last exam POD #3, s/p Right hip IM piper VSS, afebrile post-operative x-rays reviewed by Dr. Hairston Review of Systems General: No Night Sweats Gastrointestinal: No: Abdominal Pain Musculoskeletal: leg pain Neurological: Weakness; No: Confusion Objective Exam Vital Signs Date Time Temp Pulse Resp B/P (MAP) Pulse Ox O2 Delivery O2 Flow Rate FiO2 08/06/18 02:14 94 Nasal Cannula 2.50 08/06/18 00:00 99.0 87 20 128/64 (85) 95 Nasal Cannula 2.00 08/05/18 21:36 89 Nasal Cannula 2.00 08/05/18 21:00 Nasal Cannula 2.00 08/05/18 20:55 99.9 96 20 140/66 (90) 93 Nasal Cannula 2.00 08/05/18 19:00 Nasal Cannula 3.00 08/05/18 18:00 90 24 Nasal Cannula 2.00 08/05/18 17:00 90 19 113/60 (77) Nasal Cannula 2.00 08/05/18 16:03 Nasal Cannula 2.00 08/05/18 16:03 98.0 97 Nasal Cannula 2.00 08/05/18 16:00 76 17 101/73 (82) 92 Nasal Cannula 2.00 08/05/18 15:00 76 17 101/73 (82) 92 Nasal Cannula 2.00 08/05/18 14:39 90 Nasal Cannula 2.00 08/05/18 14:00 76 17 101/73 (82) 92 Nasal Cannula 2.00 08/05/18 13:00 76 17 101/73 (82) 92 Nasal Cannula 2.00 08/05/18 13:00 76 08/05/18 12:00 76 17 101/73 (82) 92 Nasal Cannula 2.00 08/05/18 11:47 Nasal Cannula 2.00 08/05/18 11:47 100.1 Nasal Cannula 2.00 08/05/18 11:00 78 14 118/50 (72) Nasal Cannula 2.00 08/05/18 10:32 97 Nasal Cannula 2.00 08/05/18 10:00 73 18 117/64 (81) Nasal Cannula 2.00 08/05/18 09:00 79 16 138/78 (98) Nasal Cannula 2.00 08/05/18 08:50 Nasal Cannula 2.00 08/05/18 08:00 77 19 131/74 (93) 95 Nasal Cannula 2.00 08/05/18 07:24 98.3 Nasal Cannula 2.00 08/05/18 07:00 75 15 157/93 (114) 100 Nasal Cannula 2.00 08/05/18 07:00 79 08/05/18 06:55 95 Nasal Cannula 2.00 08/05/18 06:00 70 16 154/97 (116) 96 Nasal Cannula 2.00 08/05/18 05:00 70 19 144/85 (104) 94 Nasal Cannula 2.00 I & O 08/06/18 07:00 Intake Total 3650 ml Output Total 2025 ml Balance 1625 ml Capillary Refill : Less Than 3 SecondsLess Than 3 Seconds General Appearance: No Apparent Distress Respiratory: No Respiratory Distress Cardiovascular: No Murmur, Normal Peripheral Pulses Gastrointestinal: non tender, soft Extremity: Non Tender, No Calf Tenderness, Other (moderate right leg pain with rotation. 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 ) Results Lab Microbiology 08/03/18 MRSA Screen - Final, Complete MRSA not isolated Assessment/Plan Assessment/Plan Assess & Plan/Chief Complaint Right hip fracture S/P Right IM nail ambulate Distal incision reinforced with 2 sally. Bleeding resolved after this procedure Clinical Quality Measures DVT/VTE Risk/Contraindication: Risk Factor Score Per Nursin RFS Level Per Nursing on Admit: 4+=Very High BIJAL RODAS Aug 06, 2018 04:55
[2018-08-06] MEDS: PANTOPRAZOLE 40 MG (PROTONIX) TAB PO SCH (05:09)
[2018-08-06 05:34] LABS: BASOPHILS % (AUTO) 0 % (0-10); EOSINOPHILS # (AUTO) 0.1 10^3/uL (0.0-0.3); EOSINOPHILS % (AUTO) 1 % (0-10); HEMATOCRIT 37 % (35-52); HEMOGLOBIN 11.9 G/DL (11.5-16.0); LYMPHOCYTES # (AUTO) 0.9 X 10^3 (1.0-4.0); LYMPHOCYTES % (AUTO) 16 % (12-44); MEAN CORPUSCULAR HEMOGLOBIN 30 PG (25-34); MEAN CORPUSCULAR HGB CONC 32 G/DL (32-36); MEAN CORPUSCULAR VOLUME 94 FL (80-99); MEAN PLATELET VOLUME 9.9 FL (7.4-10.4); MONOCYTES # (AUTO) 0.6 X 10^3 (0.0-1.0); MONOCYTES % (AUTO) 9 % (0-12); NEUTROPHILS # (AUTO) 4.4 X 10^3 (1.8-7.8); NEUTROPHILS % (AUTO) 74 % (42-75); PLATELET COUNT 189 10^3/uL (130-400); RED BLOOD COUNT 3.92 10^6/uL (4.35-5.85); WHITE BLOOD COUNT 5.9 10^3/uL (4.3-11.0)
[2018-08-06 06:21] LABS: BUN/CREATININE RATIO 10; CALCIUM 8.5 MG/DL (8.5-10.1); CARBON DIOXIDE 25 MMOL/L (21-32); CHLORIDE 102 MMOL/L (98-107); GFR ESTIMATED > 60; GLUCOSE 82 MG/DL (70-105); MAGNESIUM 1.7 MG/DL (1.8-2.4); POTASSIUM 4.1 MMOL/L (3.6-5.0); SODIUM 136 MMOL/L (135-145)
[2018-08-06 07:29] VITALS: BP 145/72
[2018-08-06] MEDS: morphine ER 15 MG (MS CONTIN) TAB PO SCH ×3 (08:23→20:59)
[2018-08-06] MEDS: ASPIRIN E.C. 325 MG (ECOTRIN) TABLET PO SCH (08:23)
[2018-08-06] MEDS: GABAPENTIN 600 MG (NEURONTIN) TAB PO SCH ×3 (08:23→20:59)
[2018-08-06] MEDS: lisINopril 10 MG (PRINIVIL) TABLET PO SCH (08:24)
[2018-08-06] MEDS: CLOPIDOGREL 75 MG (PLAVIX) TABLET PO SCH (08:24)
[2018-08-06] MEDS: PARoxetine 20 MG (PAXIL) TAB PO SCH (08:24)
[2018-08-06] MEDS: meTOprolol TARTRATE 50 MG (LOPRESSOR) TAB PO SCH ×2 (08:24→20:59)
[2018-08-06] MEDS: FAMOTIDINE 20 MG (PEPCID) TABLET PO SCH (08:24)
[2018-08-06] MEDS: DOCUSATE SODIUM 100 MG (COLACE) CAP PO SCH ×3 (08:24→20:59)
[2018-08-06] MEDS: ENOXAPARIN 30 MG/0.3 ML (LOVENOX) SYR SC SCH (08:24)
--- NOTE | 2018-08-06 09:20 | Cardiology Progress Note ---
Cardiology SOAP Progress Note Subjective: No cardiac complaints. Objective: I&O/Vital Signs 08/06/18 08/06/18 08/06/18 08/06/18 00:00 02:14 04:00 07:29 Temp 99.0 97.8 97.6 Pulse 87 82 92 Resp 20 20 20 B/P (MAP) 128/64 (85) 113/59 (77) 145/72 (96) Pulse Ox 95 94 97 90 O2 Delivery Nasal Cannula Nasal Cannula Nasal Cannula Nasal Cannula O2 Flow Rate 2.00 2.50 2.00 2.00 08/06/18 08/06/18 08/06/18 07:48 08:00 11:45 Pulse Ox 93 92 O2 Delivery Nasal Cannula Nasal Cannula Nasal Cannula O2 Flow Rate 2.50 2.00 2.50 08/06/18 00:00 Intake Total 1960 ml Output Total 1600 ml Balance 360 ml Weight (Pounds): 101 Weight (Ounces): 2.0 Weight (Calculated Kilograms): 45.566825 Constitutional: No appears stated age, No AAO x 3, No apparent distress, No PERRL, No well-developed, No well-nourished, No other Respiratory: No accessory muscle use, No respiratory distress, No chest tender , No chest expansion is symmetric; chest is bilaterally symmetric; No lungs clear to percussion; lungs clear to auscultation; No crackles, No rhonchi, No rales, No stridor, No wheezing, No pleural rub, No other Cardiovascular: regular rate-rhythm; No irregularly irregular, No extra beats, No parasternal heave is noted, No JVD, No edema, No bradycardia, No tachycardia , No point of maximal impulse, No cardiac thrills are palpable; S1 and S2; No gallop/S3, No gallop/S4, No diastolic murmur, No systolic murmur, No friction rub, No click, No other Gastrointestional: No tender, No soft, No round, No distended, No pulsatile mass, No organomegaly, No guarding, No rebound, No tenderness, No hernia, No mass, No audible bowel sounds, No abnormal bowel sounds, No abdominal bruits, No spleenomegaly, No other Extremities: No normal range of motion, No non-tender, No normal inspection, No pedal edema, No calf tenderness, No normal capillary refill, No pelvis stable , No calf tenderness, No inflammation, No pedal edema, No slow capillary refill , No swelling, No other, No abrasion, No clubbing, No cyanosis, No ecchymosis, No laceration, No no lower extremity edema bilateral, No significant edema; tenderness; No wound Neurologic/Psychiatric: no motor/sensory deficits, alert, normal mood/affect, oriented x 3 Skin: No normal color, No warm/dry, No cyanosis, No cool, No diaphoresis, No damp, No ecchymosis, No jaundice, No mottled, No pallor, No rash, No tattoos/ piercings, No ulcerations, No rash on exposed areas, No ulcerations on exposed areas, No other Results/Procedures: Labs Laboratory Tests 08/06/18 05:15: White Blood Count 5.9, Red Blood Count 3.92L, Hemoglobin 11.9, Hematocrit 37, Mean Corpuscular Volume 94, Mean Corpuscular Hemoglobin 30, Mean Corpuscular Hemoglobin Concent 32, Red Cell Distribution Width 14.0, Platelet Count 189, Mean Platelet Volume 9.9, Neutrophils (%) (Auto) 74, Lymphocytes (%) (Auto) 16, Monocytes (%) (Auto) 9, Eosinophils (%) (Auto) 1, Basophils (%) (Auto) 0, Neutrophils # (Auto) 4.4, Lymphocytes # (Auto) 0.9L, Monocytes # (Auto) 0.6, Eosinophils # (Auto) 0.1, Basophils # (Auto) 0.0, Sodium Level 136, Potassium Level 4.1, Chloride Level 102, Carbon Dioxide Level 25, Anion Gap 9, Blood Urea Nitrogen 6L, Creatinine 0.60, Estimat Glomerular Filtration Rate > 60, BUN/ Creatinine Ratio 10, Glucose Level 82, Calcium Level 8.5, Magnesium Level 1.7L Microbiology 08/03/18 MRSA Screen - Final, Complete MRSA not isolated A/P: Assessment/Dx: Admission Diagnosis Chest pain Coronary artery disease Hypertension Hyperlipidemia Hip fracture Plan: Assessment/Plan Coronary artery disease, history of old myocardial infarction with multiple stents in the past, in 2000 she had proximal and distal circumflex stent 3.013 and 2.513 done in [place]. Had a cardiac catheterization done by Dr. Brooke in November 2017 which showed mild ostial left main coronary artery stenosis, LAD had patent stent with mild diffuse disease, circumflex artery has patent first obtuse marginal artery stent and after the first obtuse marginal branch in the mid circumflex there is a stent which has severe in-stent restenosis and distal to the first stent there is another stent that is occluded, failed attempt to intervention at that time. Patient had moderate diffuse disease in the right coronary artery that was treated medically. Patient had mild apical hypokinesis with ejection fraction 45-50 percent. Recurrent chest pain, treated conservatively for which she takes nitroglycerin sublingual Shortness of breath, history of COPD. Peripheral arterial disease, claudication, peripheral angiogram was done in September 2017 which showed [id number] disease in the distal abdominal aorta, mild to moderate disease diffusely down to the trifurcation with no obstructive disease Hypertension, history of borderline low blood pressure. Monitor blood pressure Hyperlipidemia, maintained on statin Pulmonary hypertension Valvular heart disease with moderate mitral regurgitation, moderate to severe tricuspid regurgitation Tobaccoism, still an active smoker. Right hip surgery postoperative day 3 done by orthopedics Thank you for your consultation. Please call me if you have any questions. Luis Brooke MD, FACP, FACC, FSCAI, FHRS, CCDS Interventional Cardiology Cardiac Electrophysiology Vascular Medicine and Endovascular Interventions Aimee BROOKE MD Aug 06, 2018 9:20 am
[2018-08-06] MEDS: NS W/KCL 20 MEQ/L 1,000 ML IV SCH (10:28)
--- NOTE | 2018-08-06 10:56 | Progress Note (SOAP) ---
Subjective Subjective/Events-last exam No acute events overnight. Pt transferred to floor yesterday. Continues to work well with PT. Additional sally placed on incision to help with drainage this morning per ortho. Pain medication adjusted yesterday evening, patient requiring less PRN medication and has not required any IV fentanyl since adjustment. Review of Systems Date Seen by Provider: Aug 06, 2018 Time Seen by Provider: 16:00 General: No Chills, No Night Sweats HEENT: No Visual Changes, No Dysphasia Pulmonary: No Dyspnea, No Pleuritic Chest Pain Cardiovascular: No: Chest Pain, Palpitations Gastrointestinal: No: Nausea, Vomiting Genitourinary: No Hematuria Musculoskeletal: other (hip pain) Neurological: No: Incoordination, Change in speech, Seizures Objective Exam Last Set of Vital Signs Vital Signs Date Time Temp Pulse Resp B/P (MAP) Pulse Ox O2 Delivery O2 Flow Rate FiO2 08/06/18 08:00 Nasal Cannula 2.00 08/06/18 07:48 93 08/06/18 07:29 97.6 92 20 145/72 (96) 08/03/18 04:20 28 Capillary Refill : Less Than 3 SecondsLess Than 3 Seconds I&O Intake and Output 08/06/18 00:00 Intake Total 3400 ml Output Total 2375 ml Balance 1025 ml Intake Oral 1700 ml IV Total 1700 ml Output Urine Total 2375 ml # Voids 1 General: Alert, Oriented X3, Cooperative, No Acute Distress HEENT: Atraumatic, EOMI, Mucous Memb Moist/[place] Neck: Supple, No Thyromegaly Lungs: Other (diminished in bilateral bases) Heart: Regular Rate, Normal S1, Normal S2 Abdomen: Normal Bowel Sounds, Soft, No Tenderness, No Masses Extremities: No Clubbing, Other (right hip with surgical post op dressing in place) Skin: No Rashes, Other (surgical indicision - right hip) Neuro: Normal Speech, Normal Tone, Sensation Intact, Cranial Nerves 3-12 NL Psych/Mental Status: Mental Status NL, Mood NL Results/Procedures Lab Laboratory Tests 08/06/18 05:15: White Blood Count 5.9, Red Blood Count 3.92L, Hemoglobin 11.9, Hematocrit 37, Mean Corpuscular Volume 94, Mean Corpuscular Hemoglobin 30, Mean Corpuscular Hemoglobin Concent 32, Red Cell Distribution Width 14.0, Platelet Count 189, Mean Platelet Volume 9.9, Neutrophils (%) (Auto) 74, Lymphocytes (%) (Auto) 16, Monocytes (%) (Auto) 9, Eosinophils (%) (Auto) 1, Basophils (%) (Auto) 0, Neutrophils # (Auto) 4.4, Lymphocytes # (Auto) 0.9L, Monocytes # (Auto) 0.6, Eosinophils # (Auto) 0.1, Basophils # (Auto) 0.0, Sodium Level 136, Potassium Level 4.1, Chloride Level 102, Carbon Dioxide Level 25, Anion Gap 9, Blood Urea Nitrogen 6L, Creatinine 0.60, Estimat Glomerular Filtration Rate > 60, BUN/ Creatinine Ratio 10, Glucose Level 82, Calcium Level 8.5, Magnesium Level 1.7L Microbiology 08/03/18 MRSA Screen - Final, Complete MRSA not isolated Radiology Date of Exam: 08/05/18 HIP, RIGHT, 2 VIEWS EXAM: HIP, RIGHT, 2 VIEWS INDICATION: Right hip fracture. COMPARISON: Pelvis radiograph 08/03/2018. FINDINGS: New intramedullary piper and dynamic hip screw fixation of the right hip. Hardware components appear intact. The hip screw appears to breach the cortex of the right femoral head. Soft tissue shadows are unremarkable. IMPRESSION: New intramedullary piper and dynamic hip screw fixation of the right intertrochanteric right hip fracture. The dynamic hip screw appears to breach the cortex of the right femoral head. Assessment/Plan Assessment/Plan (1) Hip fracture, right Status: Acute Assessment & Plan: - Managed by Ortho 08/04 POD #1 s/p repair, continue to defer to ortho PT feels patient would be good candidate for inpatient rehab when ready for discharge from acute; will place consult for evaluation 08/05 -good candidate for IRF, submitting for approval to insurance -working well with PT -increase home pain meds -ok to transfer to floor from ortho standpoint, okay from medical standpoint as well 08/06 -3 doses oxycodone, no other additional pain medication other than morphine ER -continues to work well with PT -insurance declined inpatient rehab, social work looking into rehab at residential -tolerating PO well, saline lock IV Qualifiers: Qualified Codes: S72.001A - Fracture of unspecified part of neck of right femur, initial encounter for closed fracture (2) CAD (coronary artery disease) Status: Chronic Assessment & Plan: - Holding anti-platelet meds for surgery, will restart when ok with surgery 08/04 -vitals stable -Cardiology consulted and will defer management to Dr. Brooke 08/05 -no cardiac complaints 08/06 -no cardiac complaints Qualifiers: Qualified Codes: I25.118 - Atherosclerotic heart disease of pala coronary artery with other forms of angina pectoris (3) Asthma Status: Chronic Assessment & Plan: - Start MAT protocol, Flutter valve at surgery 08/04 -pt with extreme reluctance to use flutter valve, even with frequent reminders from nursing staff -continue MAT protocol -stable on RA at this time, easy pap PRN 08/05 -awake and alert, stable on 2L NC -continue MAT protocol 08/06 -awake and alert, stable on 2L NC -continue MAT protocol Qualifiers: Qualified Codes: J45.30 - Mild persistent asthma, uncomplicated (4) HTN (hypertension) Status: Chronic Assessment & Plan: - Will hold BP meds after surgery and restart as needed 08/04 -blood pressure stable -Cardiology also managing 08/05 -somewhat hypertensive overnight, but resolved by the time of exam 08/06 -blood pressure within desired limits Qualifiers: Qualified Codes: I10 - Essential (primary) hypertension (5) Chronic pain Status: Chronic Assessment & Plan: - Patient will likely need increased pain medication after surgery due to tolerance 08/04 -patient feels pain well controlled with current medications at this time 08/05 -pt has required IV fentanyl about every four hours -home dose of pain medication is morphine er 15 mg BID, which is what is currently ordered -will increased to Morphine ER 15 mg TID and oxycodone 5 mg Q2H PRN severe pain and see if pt can wean off IV pain medication -if needed, can consider increasing Morphine ER dose depending on how much additional medication patient needs after frequency increased 08/06 -pt doing well with morphine ER 15 mg TID and oxycodone 5 mg Q2H pRN, has only required 3 doses of PRN medication and none since this morning -will continue with current regimen for now Qualifiers: Qualified Codes: G89.4 - Chronic pain syndrome (6) Tobacco abuse Status: Chronic Assessment & Plan: - Discussed the importance of cessation 08/04 -reinforced that cessation strongly encouraged (7) DVT prophylaxis Status: Acute Assessment & Plan: - Lovenox to start tomorrow if ok surgery 08/04 -restart chemoprophylaxis when okay with surgical team 08/05 -Lovenox daily restarted yesterday -continue SCDs (8) Hyponatremia Status: Resolved Assessment & Plan: 08/05 -Na 137 on admission, down to 130, remains 130 today -stop 1/2 NS at 125 cc/hr -NS at 75 cc/hr, recheck in AM -asymptomatic 08/06 -Na 136 this AM (9) Hypomagnesemia Status: Acute Assessment & Plan: 08/06 -1.7 this AM -replace with 2 grams IVPB -recheck in AM Clinical Quality Measures DVT/VTE Risk/Contraindication: Risk Factor Score Per Nursin RFS Level Per Nursing on Admit: 4+=Very High Copy Copies To 1: [facility]/CHRISTIAN SIBLEY DO Aug 06, 2018 10:55
[2018-08-06] MEDS: MAGNESIUM 1 GM/100 ML IVPB 100 ML IV SCH ×2 (11:33→13:17)
--- NOTE | 2018-08-06 11:41 | Physical Therapy Daily Note ---
PT Daily Note-Current Subjective pt in bed pre tx, agrees to PT, reports pain 10/10 Appearance pt in bed post tx w/ phone, call light, tray, all needs met Mental Status Patient Orientation: Person, Place, Time Attachments: Oxygen (2.5 L), IV Transfers Functional [place] Measure 0=Not Assessed/NA 4=Minimal Assistance 1=Total Assistance 5=Supervision or Setup 2=Maximal Assistance 6=Modified [place] 3=Moderate Assistance 7=Complete IndependenceIRFPAI Quality Coding Scale 6 Independent with activity with or without an assistive device 5 Patient requires set up or clean up by helper. Patient completes activity by themselves 4 Supervision or touching assist (CGA). [place] provide cues , steadying assist 3 The helper provides less than half the effort to complete the activity 2 The helper provides more than half the effort to complete the activity 1 Dependent. The helper does all the effort to complete an activity 7 Patient refused to complete or attempt activity 9 The patient did not perform the activity before the current illness or injury 88 Not attempted due to Medical conditions or safety concerns Transfers (B, C, W/C) (FIM): 5 Supine to/from Sit: 5 Sit to/from Stand: 5 supine<->sit SBA, pt struggles getting RLE into bed but is able to do it, sit<-> stand SBA Weight Bearing Right Lower Extremity: Right Full Weight Bearing Left Lower Extremity: Left Full Weight Bearing Gait Training Gait (FIM): 5 Distance (FIM): 3=150 ft Distance: 150' Gait Level of Assist: 5 Gait Persons Needed: 1 Gait Assistive Device: FWW pt ambulates 150' w/ FWW SBA, gait is slow and antalgic w/ decreased stance time on RLE, pt demonstrates increased knee flexion and excessive plantarflexion during mid stance on RLE Exercises Supine Ex: Quad Set, Glut sets, Heel Slides, Short Arc Quads Supine Reps: 10 Treatments gait training, functional strengthening Assessment Current Status: Fair Progress pt shows good mobility w/ only difficulty getting into bed w/ RLE, pt is slow during ambulation, but steady w/ no LOB PT Short Term Goals Short Term Goals Time Frame: Aug 21, 2018 Transfers (B,C,W/C) (FIM): 3 Gait (FIM): 1 Distance (FIM): 1=up to 49 ft Gait Distance Comment: 45' Gait Level of Assist: 3 Gait Assistive Device: FWW PT Halfway Goals Crop Duster Goals PT Halfway Goals Time Frame: Aug 30, 2018 Transfers (B,C,W/C) (FIM): 5 Gait (FIM): 5 Gait distance (FIM): 3=150 ft Distance: 150' Gait Level of Assist: 5 Gait Assistive Device: FWW PT Plan Problem List Problem List: Activity Tolerance, Functional Strength, Safety, Balance, Gait, Transfer, Bed Mobility, ROM Treatment/Plan Treatment Plan: Continue Plan of Care Treatment Plan: Bed Mobility, Education, Functional Activity [place], Functional Strength, Gait, Safety, Therapeutic Exercise, Transfers Treatment Duration: Aug 30, 2018 Frequency: 11 times per week Estimated Hrs Per Day: .5 hour per day Patient and/or Family Agrees t: Yes (family) Safety Risks/Education Patient Education: Gait Training, Transfer Techniques, Correct Positioning, Safety Issues Teaching Recipient: Patient Teaching Methods: Demonstration, Discussion Response to Teaching: Reinforcement Needed Time/GCodes Time In: 1115 Time Out: 1132 Total Billed Treatment Time: 17 Total Billed Treatment 1 visit GT 17' FATOU VEGA PT Aug 06, 2018 11:41
[2018-08-06] MEDS: ALPRAZolam 1 MG (XANAX) TAB PO PRN (11:46)
[2018-08-06 12:41] VITALS: BP 114/61
--- NOTE | 2018-08-06 13:05 | Occupational Ther Daily Note ---
OT Current Status-Daily Note Subjective Pt alert, lying in bed. No c/o pain. Pt required encouragement to participate in therapy. Pt stated that she had been up all night and had been worked hard today. Mental Status/Objective Patient Orientation: Person, Place, Time, Situation Functional [place] Measure 0=Not Assessed/NA 4=Minimal Assistance 1=Total Assistance 5=Supervision or Setup 2=Maximal Assistance 6=Modified [place] 3=Moderate Assistance 7=Complete [place] Attachments: IV, Oxygen ADL-Treatment Bathing (FIM): 4 (Per nrsg report. Pt able to complete upper body, buttocks/ solo area and upper legs for bathing after set up. Assist needed for lower legs.) Bathing Location: L Arm, R Arm, L Upper Leg, R Upper Leg, Chest, Abdomen, Buttocks, Perineal Area Lower Body Dressing (FIM): 5 (While lying supine in bed with HOB raised, pt able to don/doff socks by self. Pt declined to complete donning briefs.) Toileting (FIM): 5 (SBA, pt able to cleanse self in sitting using grabbars and FWW for stability. Manipulated briefs using FWW for balance in standing.) Transfers (B, C, W/C) (FIM): 4 (CGA, pt able to go from supine to EOB with HOB raised, using bed rail for leverage. Pt uses EOB and FWW for stability on sit to stand. ) Toilet/Commode Transfer (FIM): 4 (CGA, pt uses grabbars and FWW for stability. ) Pt wearing hospital gown, unable to assess upper body dressing. After therapy, pt lying in bed with call light/phone within reach. All needs met in room. OT Short Term Goals Short Term Goals Transfers (B,C,W/C) (FIM): 3 1=Demonstrate adherence to instructed precautions during ADL tasks. 2=Patient will verbalize/demonstrate understanding of assistive devices/ modifications for ADL. 3=Patient will improve strength/tolerance for activity to enable patient to perform ADL's. OT Armature Connector Goals [place] Goals Time Frame: Aug 26, 2018 Eating (FIM): 6 Grooming(FIM): 6 Bathing(FIM): 5 Upper Body Dressing(FIM): 6 Lower Body Dressing(FIM): 5 Toileting(FIM): 6 Toilet/Commode Transfer(FIM): 6 Shower Transfer(FIM): 5 Additional Goals: 1-Demonstrate ADL Tasks, 2-Verbalize Understanding, 3- ImproveStrength/[place] 1=Demonstrate adherence to instructed precautions during ADL tasks. 2=Patient will verbalize/demonstrate understanding of assistive devices/ modifications for ADL. 3=Patient will improve strength/tolerance for activity to enable patient to perform ADL's. OT Education/Plan Problem List/Assessment Pt demonstrates decreased mobility, strength, activity tolerance, and ADL functioning. Pt to benefit from skilled OT intervention for ADL training, transfers, strengthening, and home safety education to increase functional independence and allow safe discharge home. Discharge Recommendations Plan/Recommendations: Continue POC Treatment Plan/Plan of Care Patient would benefit from OT for education, treatment and training to promote independence in ADL's, mobility, safety and/or upper extremity function for ADL' s. Plan of Care: ADL Retraining, Functional Mobility, UE Funct Exercise/Act Treatment Duration: Aug 26, 2018 Frequency: 5 times per week Estimated Hrs Per Day: .25 hour per day Rehab Potential: Good Time/GCodes Start Time: 12:35 Stop Time: 01:00 Total Time Billed (hr/min): 25 Billed Treatment Time 1 visit- ADL 2 (25 min) LOTTIE HOYT Aug 06, 2018 13:05
--- NOTE | 2018-08-06 14:33 | Physical Therapy Daily Note ---
PT Daily Note-Current Subjective Pt sitting in recliner visiting with family upon arrival. Pt agrees to PT for a walk. Pain Location: No Pain Reported Mental Status Patient Orientation: Person, Place Attachments: Oxygen, IV (2.5L) Transfers Functional [place] Measure 0=Not Assessed/NA 4=Minimal Assistance 1=Total Assistance 5=Supervision or Setup 2=Maximal Assistance 6=Modified [place] 3=Moderate Assistance 7=Complete IndependenceIRFPAI Quality Coding Scale 6 Independent with activity with or without an assistive device 5 Patient requires set up or clean up by helper. Patient completes activity by themselves 4 Supervision or touching assist ([facility]). [place] provide cues , steadying assist 3 The helper provides less than half the effort to complete the activity 2 The helper provides more than half the effort to complete the activity 1 Dependent. The helper does all the effort to complete an activity 7 Patient refused to complete or attempt activity 9 The patient did not perform the activity before the current illness or injury 88 Not attempted due to Medical conditions or safety concerns Scootin Sit to/from Stand: 4 Sit to Stand (QC): 4 Weight Bearing Right Lower Extremity: Right Full Weight Bearing Left Lower Extremity: Left Full Weight Bearing Gait Training Does the Patient Walk?: Yes Distance (FIM): 3=150 ft Distance: 150' Walk 10 feet (QC): 4 Walk 50 ft with 2 Turns(QC): 4 Walk 150 ft (QC): 4 Gait Level of Assist: 4 Gait Persons Needed: 1 Gait Assistive Device: FWW Pt walks with slow perez, antalgic gait pattern. Treatments Pt transfers from recliner at [facility] using FWW. Pt ambulates in hallway then returns to recliner to rest. Pt has all needs met at end of tx. Assessment Current Status: Good Progress Pt demonstrates weakness while walking and reports feeling fatigued before beginning ambulation. PT Short Term Goals Short Term Goals Time Frame: Aug 21, 2018 Transfers (B,C,W/C) (FIM): 3 Gait (FIM): 1 Distance (FIM): 1=up to 49 ft Gait Distance Comment: 45' Gait Level of Assist: 3 Gait Assistive Device: FWW PT Tube Worker Goals Tube Worker Goals PT Tube Worker Goals Time Frame: Aug 30, 2018 Transfers (B,C,W/C) (FIM): 5 Rollin Gait (FIM): 5 Gait distance (FIM): 3=150 ft Distance: 150' Gait Level of Assist: 5 Gait Assistive Device: FWW PT Plan Problem List Problem List: Activity Tolerance, Functional Strength, Safety, Balance, Gait, Transfer Treatment/Plan Treatment Plan: Continue Plan of Care Treatment Plan: Bed Mobility, Education, Functional Activity Wilbert, Functional Strength, Gait, Safety, Therapeutic Exercise, Transfers Treatment Duration: Aug 30, 2018 Frequency: 11 times per week Estimated Hrs Per Day: .5 hour per day Patient and/or Family Agrees t: Yes (family) Safety Risks/Education Patient Education: Gait Training, Transfer Techniques, Correct Positioning, Safety Issues Teaching Recipient: Patient, Family Teaching Methods: Discussion Response to Teaching: Verbalize Understanding Time/GCodes Time In: 1400 Time Out: 1418 Total Billed Treatment Time: 18 Total Billed Treatment 1, GT (18m) G Codes Necessary: АННА John PTA Aug 06, 2018 14:33
[2018-08-06 15:45] VITALS: BP 124/60
[2018-08-06 20:00] VITALS: BP 110/59
[2018-08-06] MEDS: ATORVASTATIN 40 MG (LIPITOR) TABLET PO SCH (20:59)
[2018-08-07] VITALS (7 sets, daily range): BP systolic 109–129; BP diastolic 59–73
[2018-08-07] MEDS: RT-ALBUTEROL/IPRATROPIUM 3 ML (DUONEB) VIAL INH SCH ×6 (02:48→22:01)
[2018-08-07] MEDS: PANTOPRAZOLE 40 MG (PROTONIX) TAB PO SCH (06:17)
[2018-08-07 06:21] LABS: BASOPHILS % (AUTO) 0 % (0-10); EOSINOPHILS # (AUTO) 0.1 10^3/uL (0.0-0.3); EOSINOPHILS % (AUTO) 2 % (0-10); HEMATOCRIT 31 % (35-52); HEMOGLOBIN 10.4 G/DL (11.5-16.0); LYMPHOCYTES # (AUTO) 0.9 X 10^3 (1.0-4.0); LYMPHOCYTES % (AUTO) 20 % (12-44); MEAN CORPUSCULAR HEMOGLOBIN 32 PG (25-34); MEAN CORPUSCULAR HGB CONC 33 G/DL (32-36); MEAN CORPUSCULAR VOLUME 95 FL (80-99); MONOCYTES # (AUTO) 0.7 X 10^3 (0.0-1.0); MONOCYTES % (AUTO) 15 % (0-12); NEUTROPHILS % (AUTO) 63 % (42-75); PLATELET COUNT 171 10^3/uL (130-400); RED BLOOD COUNT 3.29 10^6/uL (4.35-5.85); RED CELL DISTRIBUTION WIDTH 13.8 % (10.0-14.5); WHITE BLOOD COUNT 4.7 10^3/uL (4.3-11.0)
[2018-08-07 06:59] LABS: BUN/CREATININE RATIO 7; CALCIUM 8.3 MG/DL (8.5-10.1); CARBON DIOXIDE 26 MMOL/L (21-32); CHLORIDE 102 MMOL/L (98-107); CREATININE SERUM 0.55 MG/DL (0.60-1.30); GFR ESTIMATED > 60; GLUCOSE 109 MG/DL (70-105); MAGNESIUM 1.8 MG/DL (1.8-2.4); POTASSIUM 4.3 MMOL/L (3.6-5.0); SODIUM 136 MMOL/L (135-145)
--- NOTE | 2018-08-07 09:09 | Progress Note (SOAP) ---
Subjective Subjective/Events-last exam Patient febrile yesterday to Tmax 101.3; oxygen requirement increased from 2L to 4L. Stat CXR this AM shows small left base infiltrate. Pt reports feeling okay, denies shortness of breath. Feels pain is "okay" - has only had 1 dose of PRN oxycodone, but states that she has had more pain than that and sometimes staff "is arguing with her about her pain". Review of Systems Date Seen by Provider: Aug 07, 2018 Time Seen by Provider: 10:18 General: No Chills, No Night Sweats, No Fatigue HEENT: No Head Aches, No Dysphasia Pulmonary: No Dyspnea, No Pleuritic Chest Pain Cardiovascular: No: Chest Pain Gastrointestinal: No: Nausea, Vomiting, Abdominal Pain Genitourinary: No Dysuria Musculoskeletal: other (hip pain) Neurological: No: Numbness, Change in speech, Confusion, Seizures Objective Exam Last Set of Vital Signs Vital Signs Date Time Temp Pulse Resp B/P (MAP) Pulse Ox O2 Delivery O2 Flow Rate FiO2 08/07/18 07:14 99.5 84 20 129/60 (83) 94 Nasal Cannula 3.00 08/03/18 04:20 28 Capillary Refill : Less Than 3 SecondsLess Than 3 Seconds I&O Intake and Output 08/07/18 00:00 Intake Total 4160 ml Output Total 1830 ml Balance 2330 ml Intake Oral 1060 ml IV Total 3100 ml Output Urine Total 1830 ml # Voids 7 # Bowel Movements 1 General: Alert, Oriented X3, Cooperative, No Acute Distress HEENT: Atraumatic, EOMI, Mucous Memb Moist/[place] Neck: Supple, No Thyromegaly Lungs: Other (diminished in bases, L>R) Heart: Regular Rate, Normal S1, Normal S2 Abdomen: Normal Bowel Sounds, Soft, No Tenderness, No Masses Extremities: No Clubbing, No Cyanosis Skin: No Rashes, Other (surgical dressing in place) Neuro: Normal Speech, Normal Tone, Sensation Intact, Cranial Nerves 3-12 NL Psych/Mental Status: Mental Status NL, Mood NL Results/Procedures Lab Laboratory Tests 08/07/18 05:55: White Blood Count 4.7, Red Blood Count 3.29L, Hemoglobin 10.4L, Hematocrit 31L, Mean Corpuscular Volume 95, Mean Corpuscular Hemoglobin 32, Mean Corpuscular Hemoglobin Concent 33, Red Cell Distribution Width 13.8, Platelet Count 171, Mean Platelet Volume 10.0, Neutrophils (%) (Auto) 63, Lymphocytes (%) (Auto) 20 , Monocytes (%) (Auto) 15H, Eosinophils (%) (Auto) 2, Basophils (%) (Auto) 0, Neutrophils # (Auto) 3.0, Lymphocytes # (Auto) 0.9L, Monocytes # (Auto) 0.7, Eosinophils # (Auto) 0.1, Basophils # (Auto) 0.0, Sodium Level 136, Potassium Level 4.3, Chloride Level 102, Carbon Dioxide Level 26, Anion Gap 8, Blood Urea Nitrogen 4L, Creatinine 0.55L, Estimat Glomerular Filtration Rate > 60, BUN/ Creatinine Ratio 7, Glucose Level 109H, Calcium Level 8.3L, Magnesium Level 1.8 Microbiology 08/03/18 MRSA Screen - Final, Complete MRSA not isolated Radiology Date of Exam: 08/05/18 HIP, RIGHT, 2 VIEWS EXAM: HIP, RIGHT, 2 VIEWS INDICATION: Right hip fracture. COMPARISON: Pelvis radiograph 08/03/2018. FINDINGS: New intramedullary piper and dynamic hip screw fixation of the right hip. Hardware components appear intact. The hip screw appears to breach the cortex of the right femoral head. Soft tissue shadows are unremarkable. IMPRESSION: New intramedullary piper and dynamic hip screw fixation of the right intertrochanteric right hip fracture. The dynamic hip screw appears to breach the cortex of the right femoral head. Assessment/Plan Assessment/Plan (1) HCAP (healthcare-associated pneumonia) Status: Acute Assessment & Plan: 08/07 -febrile, increased oxygen requirement -CXR with LLL infiltrate -start IV abx for HCAP - Cefepime, Levaquin, Vancomycin -pt will need 24-48 hours IV abx, then can transition to PO if otherwise stable (2) Hip fracture, right Status: Acute Assessment & Plan: - Managed by Ortho 08/04 POD #1 s/p repair, continue to defer to ortho PT feels patient would be good candidate for inpatient rehab when ready for discharge from acute; will place consult for evaluation 08/05 -good candidate for IRF, submitting for approval to insurance -working well with PT -increase home pain meds -ok to transfer to floor from ortho standpoint, okay from medical standpoint as well 08/06 -3 doses oxycodone, no other additional pain medication other than morphine ER -continues to work well with PT -insurance declined inpatient rehab, social work looking into rehab at senior care -tolerating PO well, saline lock IV 08/07 -continues to do well with PT -pt has been accepted to [facility] for skilled rehab Qualifiers: Qualified Codes: S72.001A - Fracture of unspecified part of neck of right femur, initial encounter for closed fracture (3) CAD (coronary artery disease) Status: Chronic Assessment & Plan: - Holding anti-platelet meds for surgery, will restart when ok with surgery 08/04 -vitals stable -Cardiology consulted and will defer management to Dr. Brooke 08/05 -no cardiac complaints 08/06 -no cardiac complaints 08/07 -no cardiac complaints Qualifiers: Qualified Codes: I25.118 - Atherosclerotic heart disease of [place] coronary artery with other forms of angina pectoris (4) Asthma Status: Chronic Assessment & Plan: - Start MAT protocol, Flutter valve at surgery 08/04 -pt with extreme reluctance to use flutter valve, even with frequent reminders from nursing staff -continue MAT protocol -stable on RA at this time, easy pap PRN 08/05 -awake and alert, stable on 2L NC -continue MAT protocol 08/06 -awake and alert, stable on 2L NC -continue MAT protocol Qualifiers: Qualified Codes: J45.30 - Mild persistent asthma, uncomplicated (5) HTN (hypertension) Status: Chronic Assessment & Plan: - Will hold BP meds after surgery and restart as needed 08/04 -blood pressure stable -Cardiology also managing 08/05 -somewhat hypertensive overnight, but resolved by the time of exam 08/06 -blood pressure within desired limits 08/07 -blood pressure within desired limits Qualifiers: Qualified Codes: I10 - Essential (primary) hypertension (6) Chronic pain Status: Chronic Assessment & Plan: - Patient will likely need increased pain medication after surgery due to tolerance 08/04 -patient feels pain well controlled with current medications at this time 08/05 -pt has required IV fentanyl about every four hours -home dose of pain medication is morphine er 15 mg BID, which is what is currently ordered -will increased to Morphine ER 15 mg TID and oxycodone 5 mg Q2H PRN severe pain and see if pt can wean off IV pain medication -if needed, can consider increasing Morphine ER dose depending on how much additional medication patient needs after frequency increased 08/06 -pt doing well with morphine ER 15 mg TID and oxycodone 5 mg Q2H pRN, has only required 3 doses of PRN medication and none since this morning -will continue with current regimen for now 08/07 -pt with some increased pain, encouraged to ask for PRN medication when needed -if pain not well controlled, will consider increasing AM morphine ER to 30 mg Qualifiers: Qualified Codes: G89.4 - Chronic pain syndrome (7) Tobacco abuse Status: Chronic Assessment & Plan: - Discussed the importance of cessation 08/04 -reinforced that cessation strongly encouraged (8) DVT prophylaxis Status: Acute Assessment & Plan: - Lovenox to start tomorrow if ok surgery 08/04 -restart chemoprophylaxis when okay with surgical team 08/05 -Lovenox daily restarted yesterday -continue SCDs (9) Hyponatremia Status: Resolved (10) Hypomagnesemia Status: Resolved Assessment & Plan: 08/06 -1.7 this AM -replace with 2 grams IVPB -recheck in AM 08/07 -now 1.8 -RESOLVED Clinical Quality Measures DVT/VTE Risk/Contraindication: Risk Factor Score Per Nursin RFS Level Per Nursing on Admit: 4+=Very High Copy Copies To 1: [facility]/CHRISTIAN SIBLEY DO Aug 07, 2018 09:09
--- NOTE | 2018-08-07 09:30 | Diagnostic Imaging Report ---
INDICATION: Postop and febrile. Patient is status post right hip surgery approximately 4 days ago. TIME OF EXAM: 9:18 AM Comparison is made with prior chest radiograph from 08/03/2018. FINDINGS: The heart is enlarged, but stable. Right lung appears to be clear. There is some mild infiltrate or atelectasis in the left base. No significant effusion is seen. There is no pneumothorax. IMPRESSION: Mild left basilar infiltrate or atelectasis. Dictated by: Dictated on workstation # [id number]
--- NOTE | 2018-08-07 09:43 | Physical Therapy Daily Note ---
PT Daily Note-Current Subjective Patient is up in recliner and agrees to PT. Dons socks with SBA only. Pain Numeric Pain Scale: 7 Location: Right Location Body Site: Hip Pain Description: Acute Mental Status Patient Orientation: Normal For Age Attachments: Oxygen (5L) Transfers Functional [place] Measure 0=Not Assessed/NA 4=Minimal Assistance 1=Total Assistance 5=Supervision or Setup 2=Maximal Assistance 6=Modified [place] 3=Moderate Assistance 7=Complete IndependenceIRFPAI Quality Coding Scale 6 Independent with activity with or without an assistive device 5 Patient requires set up or clean up by helper. Patient completes activity by themselves 4 Supervision or touching assist (CGA). [place] provide cues , steadying assist 3 The helper provides less than half the effort to complete the activity 2 The helper provides more than half the effort to complete the activity 1 Dependent. The helper does all the effort to complete an activity 7 Patient refused to complete or attempt activity 9 The patient did not perform the activity before the current illness or injury 88 Not attempted due to Medical conditions or safety concerns Transfers (B, C, W/C) (FIM): 5 Scootin Sit to/from Stand: 5 Weight Bearing Right Lower Extremity: Right Full Weight Bearing Left Lower Extremity: Left Full Weight Bearing Gait Training Gait (FIM): 5 Distance (FIM): 3=150 ft Distance: 375' Gait Level of Assist: 5 Gait Assistive Device: FWW steady, antalgic, functional Exercises Seated Therapy Exercises: Ankle pumps, Long arc quads, Hip flexion Seated Reps: 20 (2 sets) Assessment Patient progressing with treatment plan. Per report, patient will transfer to for continued care. PT Short Term Goals Short Term Goals Time Frame: Aug 21, 2018 Transfers (B,C,W/C) (FIM): 3 Gait (FIM): 1 Distance (FIM): 1=up to 49 ft Gait Distance Comment: 45' Gait Level of Assist: 3 Gait Assistive Device: FWW PT Senior Care Goals Senior Care Goals PT Senior Care Goals Time Frame: Aug 30, 2018 Transfers (B,C,W/C) (FIM): 5 Gait (FIM): 5 Gait distance (FIM): 3=150 ft Distance: 150' Gait Level of Assist: 5 Gait Assistive Device: FWW PT Plan Treatment/Plan Treatment Plan: Continue Plan of Care Treatment Plan: Bed Mobility, Education, Functional Activity Wilbert, Functional Strength, Gait, Safety, Therapeutic Exercise, Transfers Treatment Duration: Aug 30, 2018 Frequency: 11 times per week Estimated Hrs Per Day: .5 hour per day Patient and/or Family Agrees t: Yes (family) Time/GCodes Time In: 907 Time Out: 930 Total Billed Treatment Time: 23 Total Billed Treatment 1 visit EX 8 min GT 15 min NIDA MYLES PT Aug 07, 2018 09:43
--- NOTE | 2018-08-07 09:50 | Cardiology Progress Note ---
Cardiology SOAP Progress Note Subjective: No cardiac complaint. Episode of fever yesterday. Objective: I&O/Vital Signs 08/07/18 08/07/18 08/07/18 08/07/18 02:48 04:29 06:06 07:14 Temp 99.2 99.5 Pulse 80 84 Resp 18 20 B/P (MAP) 119/59 (79) 129/60 (83) Pulse Ox 90 93 86 94 O2 Delivery Nasal Cannula Nasal Cannula Nasal Cannula Nasal Cannula O2 Flow Rate 3.00 3.00 3.00 3.00 08/07/18 08/07/18 08/07/18 08:00 10:00 12:06 Temp 98.4 Pulse 82 Resp 20 B/P (MAP) 117/61 (79) Pulse Ox 90 97 95 O2 Delivery Nasal Cannula Nasal Cannula Nasal Cannula O2 Flow Rate 4.00 4.00 3.00 08/07/18 00:00 Intake Total 2150 ml Output Total 500 ml Balance 1650 ml Weight (Pounds): 101 Weight (Ounces): 2.0 Weight (Calculated Kilograms): 45.776747 Constitutional: No appears stated age, No AAO x 3, No apparent distress, No PERRL, No well-developed, No well-nourished, No other Respiratory: No accessory muscle use, No respiratory distress, No chest tender , No chest expansion is symmetric; chest is bilaterally symmetric; No lungs clear to percussion; lungs clear to auscultation; No crackles, No rhonchi, No rales, No stridor, No wheezing, No pleural rub, No other Cardiovascular: regular rate-rhythm; No irregularly irregular, No extra beats, No parasternal heave is noted, No JVD, No edema, No bradycardia, No tachycardia , No point of maximal impulse, No cardiac thrills are palpable; S1 and S2; No gallop/S3, No gallop/S4, No diastolic murmur, No systolic murmur, No friction rub, No click, No other Gastrointestional: No tender, No soft, No round, No distended, No pulsatile mass, No organomegaly, No guarding, No rebound, No tenderness, No hernia, No mass, No audible bowel sounds, No abnormal bowel sounds, No abdominal bruits, No spleenomegaly, No other Extremities: No normal range of motion, No non-tender, No normal inspection, No pedal edema, No calf tenderness, No normal capillary refill, No pelvis stable , No calf tenderness, No inflammation, No pedal edema, No slow capillary refill , No swelling, No other, No abrasion, No clubbing, No cyanosis, No ecchymosis, No laceration, No no lower extremity edema bilateral, No significant edema; tenderness; No wound Neurologic/Psychiatric: no motor/sensory deficits, alert, normal mood/affect, oriented x 3 Skin: No normal color, No warm/dry, No cyanosis, No cool, No diaphoresis, No damp, No ecchymosis, No jaundice, No mottled, No pallor, No rash, No tattoos/ piercings, No ulcerations, No rash on exposed areas, No ulcerations on exposed areas, No other Results/Procedures: Labs Laboratory Tests 08/07/18 05:55: White Blood Count 4.7, Red Blood Count 3.29L, Hemoglobin 10.4L, Hematocrit 31L, Mean Corpuscular Volume 95, Mean Corpuscular Hemoglobin 32, Mean Corpuscular Hemoglobin Concent 33, Red Cell Distribution Width 13.8, Platelet Count 171, Mean Platelet Volume 10.0, Neutrophils (%) (Auto) 63, Lymphocytes (%) (Auto) 20 , Monocytes (%) (Auto) 15H, Eosinophils (%) (Auto) 2, Basophils (%) (Auto) 0, Neutrophils # (Auto) 3.0, Lymphocytes # (Auto) 0.9L, Monocytes # (Auto) 0.7, Eosinophils # (Auto) 0.1, Basophils # (Auto) 0.0, Sodium Level 136, Potassium Level 4.3, Chloride Level 102, Carbon Dioxide Level 26, Anion Gap 8, Blood Urea Nitrogen 4L, Creatinine 0.55L, Estimat Glomerular Filtration Rate > 60, BUN/ Creatinine Ratio 7, Glucose Level 109H, Calcium Level 8.3L, Magnesium Level 1.8 Microbiology 08/03/18 MRSA Screen - Final, Complete MRSA not isolated A/P: Assessment/Dx: Admission Diagnosis Chest pain Coronary artery disease Hypertension Hyperlipidemia Hip fracture Plan: Assessment/Plan Episode of fever yesterday: Chest x-ray. IV antibiotics. Defer further evaluation to the primary team. Coronary artery disease, history of old myocardial infarction with multiple stents in the past, in 2000 she had proximal and distal circumflex stent 3.013 and 2.513 done in [place]. Had a cardiac catheterization done by Dr. Brooke in November 2017 which showed mild ostial left main coronary artery stenosis, LAD had patent stent with mild diffuse disease, circumflex artery has patent first obtuse marginal artery stent and after the first obtuse marginal branch in the mid circumflex there is a stent which has severe in-stent restenosis and distal to the first stent there is another stent that is occluded, failed attempt to intervention at that time. Patient had moderate diffuse disease in the right coronary artery that was treated medically. Patient had mild apical hypokinesis with ejection fraction 45-50 percent. Recurrent chest pain, treated conservatively for which she takes nitroglycerin sublingual Shortness of breath, history of COPD. Peripheral arterial disease, claudication, peripheral angiogram was done in September 2017 which showed [id number] disease in the distal abdominal aorta, mild to moderate disease diffusely down to the trifurcation with no obstructive disease Hypertension, history of borderline low blood pressure. Monitor blood pressure Hyperlipidemia, maintained on statin Pulmonary hypertension Valvular heart disease with moderate mitral regurgitation, moderate to severe tricuspid regurgitation Tobaccoism, still an active smoker. Right hip surgery postoperative day 4 done by orthopedics Thank you for your consultation. Please call me if you have any questions. Luis Brooke MD, FACP, FACC, FSCAI, FHRS, CCDS Interventional Cardiology Cardiac Electrophysiology Vascular Medicine and Endovascular Interventions Aimee BROOKE MD Aug 07, 2018 9:50 am
[2018-08-07] MEDS: ASPIRIN E.C. 325 MG (ECOTRIN) TABLET PO SCH (09:54)
[2018-08-07] MEDS: FAMOTIDINE 20 MG (PEPCID) TABLET PO SCH (09:54)
[2018-08-07] MEDS: DOCUSATE SODIUM 100 MG (COLACE) CAP PO SCH ×3 (09:55→20:57)
[2018-08-07] MEDS: CLOPIDOGREL 75 MG (PLAVIX) TABLET PO SCH (09:55)
[2018-08-07] MEDS: GABAPENTIN 600 MG (NEURONTIN) TAB PO SCH ×3 (09:55→20:57)
[2018-08-07] MEDS: PARoxetine 20 MG (PAXIL) TAB PO SCH (09:55)
[2018-08-07] MEDS: morphine ER 15 MG (MS CONTIN) TAB PO SCH ×3 (09:55→20:57)
[2018-08-07] MEDS: meTOprolol TARTRATE 50 MG (LOPRESSOR) TAB PO SCH ×2 (09:55→20:57)
[2018-08-07] MEDS: lisINopril 10 MG (PRINIVIL) TABLET PO SCH (09:56)
[2018-08-07] MEDS: ENOXAPARIN 30 MG/0.3 ML (LOVENOX) SYR SC SCH (09:56)
[2018-08-07] MEDS ORDERED: CEFEPIME INJECTION 2,000 MG in NS (IVPB) 50 ML IV SCH (11:45)
[2018-08-07] MEDS ORDERED: VANCOMYCIN 1 GM/NS 250 ML IVPB IV NR ×2 (13:00)
--- NOTE | 2018-08-07 13:49 | Physical Therapy Daily Note ---
PT Daily Note-Current Subjective Patient c/o 8/10 right hip pain. She reports, "I'm having a bad day". Pain Numeric Pain Scale: 8 Location: Right Location Body Site: Hip Pain Description: Acute Mental Status Patient Orientation: Normal For Age Attachments: Oxygen Transfers Functional [place] Measure 0=Not Assessed/NA 4=Minimal Assistance 1=Total Assistance 5=Supervision or Setup 2=Maximal Assistance 6=Modified [place] 3=Moderate Assistance 7=Complete IndependenceIRFPAI Quality Coding Scale 6 Independent with activity with or without an assistive device 5 Patient requires set up or clean up by helper. Patient completes activity by themselves 4 Supervision or touching assist (CGA). [place] provide cues , steadying assist 3 The helper provides less than half the effort to complete the activity 2 The helper provides more than half the effort to complete the activity 1 Dependent. The helper does all the effort to complete an activity 7 Patient refused to complete or attempt activity 9 The patient did not perform the activity before the current illness or injury 88 Not attempted due to Medical conditions or safety concerns Transfers (B, C, W/C) (FIM): 5 Scootin Rollin Supine to/from Sit: 5 Sit to/from Stand: 5 Weight Bearing Right Lower Extremity: Right Full Weight Bearing Left Lower Extremity: Left Full Weight Bearing Gait Training Gait (FIM): 5 Distance (FIM): 3=150 ft Distance: 200' Gait Level of Assist: 5 Gait Assistive Device: FWW slow, antalgic Assessment Patient declined exercises and returned to bed with needs met. PT Short Term Goals Short Term Goals Time Frame: Aug 21, 2018 Transfers (B,C,W/C) (FIM): 3 Gait (FIM): 1 Distance (FIM): 1=up to 49 ft Gait Distance Comment: 45' Gait Level of Assist: 3 Gait Assistive Device: FWW PT Nail Artist Goals Nail Artist Goals PT Nail Artist Goals Time Frame: Aug 30, 2018 Transfers (B,C,W/C) (FIM): 5 Gait (FIM): 5 Gait distance (FIM): 3=150 ft Distance: 150' Gait Level of Assist: 5 Gait Assistive Device: FWW PT Plan Treatment/Plan Treatment Plan: Continue Plan of Care Treatment Plan: Bed Mobility, Education, Functional Activity [place], Functional Strength, Gait, Safety, Therapeutic Exercise, Transfers Treatment Duration: Aug 30, 2018 Frequency: 11 times per week Estimated Hrs Per Day: .5 hour per day Patient and/or Family Agrees t: Yes (family) Time/GCodes Time In: 1307 Time Out: 1320 Total Billed Treatment Time: 13 Total Billed Treatment 1 visit GT 13 min NIDA MYLES PT Aug 07, 2018 13:49
[2018-08-07] MEDS: LEVOFLOXACIN 750 MG/150 ML IV 150 ML IV SCH (13:59)
[2018-08-07] MEDS: CEFEPIME INJECTION 2,000 MG in NS (IVPB) 50 ML IV SCH (14:01)
[2018-08-07] MEDS ORDERED: VANCOMYCIN INJECTION 1,250 MG in NS (IVPB) 250 ML IV SCH (15:00)
--- NOTE | 2018-08-07 15:24 | Occ Therapy Progress Note ---
Therapy Progress Note 1510 Pt declined OT, stating that she was in excruciating pain, had just come back from going to the bathroom, had walked twice today and done stretches in bed ("actually, I stretched too much"). Nursing notified of request for pain meds. visit ELISABET BERGERON OT Aug 07, 2018 15:24
[2018-08-07] MEDS: ATORVASTATIN 40 MG (LIPITOR) TABLET PO SCH (20:57)
[2018-08-08] MEDS: RT-ALBUTEROL/IPRATROPIUM 3 ML (DUONEB) VIAL INH SCH ×6 (02:10→22:33)
[2018-08-08 04:40] LABS: BASOPHILS % (AUTO) 0 % (0-10); EOSINOPHILS # (AUTO) 0.2 10^3/uL (0.0-0.3); EOSINOPHILS % (AUTO) 3 % (0-10); HEMATOCRIT 35 % (35-52); HEMOGLOBIN 11.5 G/DL (11.5-16.0); LYMPHOCYTES # (AUTO) 0.9 X 10^3 (1.0-4.0); LYMPHOCYTES % (AUTO) 17 % (12-44); MEAN CORPUSCULAR HEMOGLOBIN 31 PG (25-34); MEAN CORPUSCULAR HGB CONC 33 G/DL (32-36); MEAN CORPUSCULAR VOLUME 95 FL (80-99); MEAN PLATELET VOLUME 9.9 FL (7.4-10.4); MONOCYTES # (AUTO) 0.6 X 10^3 (0.0-1.0); MONOCYTES % (AUTO) 11 % (0-12); NEUTROPHILS # (AUTO) 3.9 X 10^3 (1.8-7.8); NEUTROPHILS % (AUTO) 70 % (42-75); PLATELET COUNT 118 10^3/uL (130-400); RED BLOOD COUNT 3.68 10^6/uL (4.35-5.85); RED CELL DISTRIBUTION WIDTH 14.1 % (10.0-14.5); WHITE BLOOD COUNT 5.6 10^3/uL (4.3-11.0)
[2018-08-08 05:20] LABS: BUN/CREATININE RATIO 9; CALCIUM 8.5 MG/DL (8.5-10.1); CARBON DIOXIDE 23 MMOL/L (21-32); CHLORIDE 100 MMOL/L (98-107); CREATININE SERUM 0.56 MG/DL (0.60-1.30); GFR ESTIMATED > 60; GLUCOSE 99 MG/DL (70-105); MAGNESIUM 2.9 MG/DL (1.8-2.4); POTASSIUM 5.9 MMOL/L (3.6-5.0); SODIUM 133 MMOL/L (135-145)
[2018-08-08] MEDS: PANTOPRAZOLE 40 MG (PROTONIX) TAB PO SCH (05:48)
--- NOTE | 2018-08-08 07:18 | Occupational Ther Daily Note ---
OT Current Status-Daily Note Subjective Pt alert, sitting in recliner. Pt states that her hip has hurt her throughout the night and that she has been awake the entire night. Pt states that she did alot of stretching and flexion the day before and feels as though she over did it. Pt took some persuading to complete some ADLs. Mental Status/Objective Patient Orientation: Person, Place, Time, Situation Functional [place] Measure 0=Not Assessed/NA 4=Minimal Assistance 1=Total Assistance 5=Supervision or Setup 2=Maximal Assistance 6=Modified [place] 3=Moderate Assistance 7=Complete [place] Attachments: Oxygen ADL-Treatment Grooming (FIM): 5 (Set up. In sitting, pt was able to wash hands and face with warm rag. Pt declines oral care because she only has four teeth. ) After therapy, pt sitting in recliner with call light/ phone within reach. All needs met in room. OT Short Term Goals Short Term Goals Transfers (B,C,W/C) (FIM): 3 1=Demonstrate adherence to instructed precautions during ADL tasks. 2=Patient will verbalize/demonstrate understanding of assistive devices/ modifications for ADL. 3=Patient will improve strength/tolerance for activity to enable patient to perform ADL's. OT Group Home Goals Group Home Goals Time Frame: Aug 26, 2018 Eating (FIM): 6 Grooming(FIM): 6 Bathing(FIM): 5 Upper Body Dressing(FIM): 6 Lower Body Dressing(FIM): 5 Toileting(FIM): 6 Toilet/Commode Transfer(FIM): 6 Shower Transfer(FIM): 5 Additional Goals: 1-Demonstrate ADL Tasks, 2-Verbalize Understanding, 3- ImproveStrength/Wilbert 1=Demonstrate adherence to instructed precautions during ADL tasks. 2=Patient will verbalize/demonstrate understanding of assistive devices/ modifications for ADL. 3=Patient will improve strength/tolerance for activity to enable patient to perform ADL's. OT Education/Plan Problem List/Assessment Pt demonstrates decreased mobility, strength, activity tolerance, and ADL functioning. Pt to benefit from skilled OT intervention for ADL training, transfers, strengthening, and home safety education to increase functional independence and allow safe discharge home. Discharge Recommendations Plan/Recommendations: Continue POC Treatment Plan/Plan of Care Patient would benefit from OT for education, treatment and training to promote independence in ADL's, mobility, safety and/or upper extremity function for ADL' s. Plan of Care: ADL Retraining, Functional Mobility, UE Funct Exercise/Act Treatment Duration: Aug 26, 2018 Frequency: 5 times per week Estimated Hrs Per Day: .25 hour per day Rehab Potential: Good Time/GCodes Start Time: 07:00 Stop Time: 07:08 Total Time Billed (hr/min): 8 Billed Treatment Time 1 visit- ADL 1 (8 min) LOTTIE HOYT Aug 08, 2018 07:18
--- NOTE | 2018-08-08 07:35 | Progress Note (SOAP) ---
Subjective Date Seen by a Provider: Aug 08, 2018 Time Seen by a Provider: 07:32 Subjective/Events-last exam Worsening pain per patient report, hurts to put weight on it Objective Exam Vital Signs Date Time Temp Pulse Resp B/P (MAP) Pulse Ox O2 Delivery O2 Flow Rate FiO2 08/08/18 06:44 91 Nasal Cannula 2.00 08/08/18 02:10 93 Nasal Cannula 2.00 08/07/18 23:06 98.2 80 18 120/68 (85) 93 Nasal Cannula 3.00 08/07/18 22:01 90 Nasal Cannula 2.00 08/07/18 20:00 Nasal Cannula 4.00 08/07/18 18:14 94 Nasal Cannula 2.00 08/07/18 16:48 99.5 79 18 126/73 (90) 96 Nasal Cannula 3.00 08/07/18 14:49 88 98 32 08/07/18 14:10 98 Nasal Cannula 3.00 08/07/18 12:06 98.4 82 20 117/61 (79) 95 Nasal Cannula 3.00 08/07/18 10:00 97 Nasal Cannula 4.00 08/07/18 08:00 90 Nasal Cannula 4.00 I & O 08/08/18 07:00 Intake Total 1870 ml Balance 1870 ml Capillary Refill : Less Than 3 SecondsLess Than 3 Seconds General Appearance: No Apparent Distress, Other (Up in chair) Neck: Supple Respiratory: No Accessory Muscle Use, No Respiratory Distress Cardiovascular: Regular Rate, Rhythm Gastrointestinal: soft Extremity: Normal Capillary Refill, No Calf Tenderness, Other (signifcant pain with ROM of Right leg) Neurologic/Psychiatric: Alert, Oriented x3, No Motor/Sensory Deficits Results Lab Laboratory Tests 08/08/18 04:16: White Blood Count 5.6, Red Blood Count 3.68L, Hemoglobin 11.5, Hematocrit 35, Mean Corpuscular Volume 95, Mean Corpuscular Hemoglobin 31, Mean Corpuscular Hemoglobin Concent 33, Red Cell Distribution Width 14.1, Platelet Count 118L, Mean Platelet Volume 9.9, Neutrophils (%) (Auto) 70, Lymphocytes (%) (Auto) 17, Monocytes (%) (Auto) 11, Eosinophils (%) (Auto) 3, Basophils (%) (Auto) 0, Neutrophils # (Auto) 3.9, Lymphocytes # (Auto) 0.9L, Monocytes # (Auto) 0.6, Eosinophils # (Auto) 0.2, Basophils # (Auto) 0.0, Sodium Level 133L, Potassium Level 5.9H, Chloride Level 100, Carbon Dioxide Level 23, Anion Gap 10, Blood Urea Nitrogen 5L, Creatinine 0.56L, Estimat Glomerular Filtration Rate > 60, BUN /Creatinine Ratio 9, Glucose Level 99, Calcium Level 8.5, Magnesium Level 2.9H, C-Reactive Protein High Sensitivity 6.35H Microbiology 08/03/18 MRSA Screen - Final, Complete MRSA not isolated Assessment/Plan Assessment/Plan Assess & Plan/Chief Complaint Right Hip IT fracture, s/p IM nailing. Prior films d/w Dr Hairston, Feels she is too high risk to revise due to apparent early failure, but will re- image and we may have no options. She may need to go back for repeat fixation of her hip Clinical Quality Measures DVT/VTE Risk/Contraindication: Risk Factor Score Per Nursin RFS Level Per Nursing on Admit: 4+=Very High KAILYN ROSE MD Aug 08, 2018 7:35 am
[2018-08-08] MEDS: ENOXAPARIN 30 MG/0.3 ML (LOVENOX) SYR SC SCH (08:08)
[2018-08-08] MEDS: FAMOTIDINE 20 MG (PEPCID) TABLET PO SCH (08:10)
[2018-08-08] MEDS: PARoxetine 20 MG (PAXIL) TAB PO SCH (08:10)
[2018-08-08] MEDS: ASPIRIN E.C. 325 MG (ECOTRIN) TABLET PO SCH (08:10)
[2018-08-08] MEDS: lisINopril 10 MG (PRINIVIL) TABLET PO SCH (08:10)
[2018-08-08] MEDS: DOCUSATE SODIUM 100 MG (COLACE) CAP PO SCH ×3 (08:10→20:16)
[2018-08-08] MEDS: GABAPENTIN 600 MG (NEURONTIN) TAB PO SCH ×3 (08:10→20:16)
[2018-08-08] MEDS: meTOprolol TARTRATE 50 MG (LOPRESSOR) TAB PO SCH ×2 (08:10→20:17)
[2018-08-08] MEDS: CLOPIDOGREL 75 MG (PLAVIX) TABLET PO SCH (08:10)
[2018-08-08] MEDS: morphine ER 15 MG (MS CONTIN) TAB PO SCH ×3 (08:10→20:17)
--- NOTE | 2018-08-08 08:14 | Progress Note (SOAP) ---
Subjective Subjective/Events-last exam Patient with significant pain in her hip, especially overnight. She is unable to rest, and very uncomfortable. She was evaluated by Dr. Moss this morning, and the current plan is for the patient to be taken back to the OR on Saturday morning. Other than pain control, the patient denies complaints. She has no shortness of breath, and has not had any further episodes of fever. No acute events overnight. Review of Systems Date Seen by Provider: Aug 08, 2018 Time Seen by Provider: 11:45 General: No Chills, No Night Sweats HEENT: No Head Aches, No Dysphasia Pulmonary: No Dyspnea, No Cough Cardiovascular: No: Chest Pain, Palpitations Gastrointestinal: No: Nausea, Vomiting, Abdominal Pain Genitourinary: No Retention Musculoskeletal: other (right hip pain) Neurological: No: Change in speech, Confusion, Seizures Objective Exam Last Set of Vital Signs Vital Signs Date Time Temp Pulse Resp B/P (MAP) Pulse Ox O2 Delivery O2 Flow Rate FiO2 08/08/18 06:44 91 Nasal Cannula 2.00 08/07/18 23:06 98.2 80 18 120/68 (85) 08/07/18 14:49 32 Capillary Refill : Less Than 3 SecondsLess Than 3 Seconds I&O Intake and Output 08/08/18 00:00 Intake Total 1920 ml Balance 1920 ml Intake Oral 1670 ml IV Total 250 ml # Voids 12 General: Alert, Oriented X3, Cooperative, No Acute Distress HEENT: Atraumatic, EOMI, Mucous Memb Moist/Panther Neck: Supple, No Thyromegaly, +2 Carotid Pulse No Bruit Lungs: Other (diminished in bases, L>R, mild) Heart: Regular Rate, Normal S1, Normal S2 Abdomen: Normal Bowel Sounds, Soft, No Tenderness, No Masses Extremities: No Cyanosis, Other (right hip with surgical dressing) Skin: No Rashes, No Breakdown Neuro: Normal Speech, Normal Tone, Sensation Intact, Cranial Nerves 3-12 NL Psych/Mental Status: Mental Status NL, Mood NL Results/Procedures Lab Laboratory Tests 08/08/18 04:16: White Blood Count 5.6, Red Blood Count 3.68L, Hemoglobin 11.5, Hematocrit 35, Mean Corpuscular Volume 95, Mean Corpuscular Hemoglobin 31, Mean Corpuscular Hemoglobin Concent 33, Red Cell Distribution Width 14.1, Platelet Count 118L, Mean Platelet Volume 9.9, Neutrophils (%) (Auto) 70, Lymphocytes (%) (Auto) 17, Monocytes (%) (Auto) 11, Eosinophils (%) (Auto) 3, Basophils (%) (Auto) 0, Neutrophils # (Auto) 3.9, Lymphocytes # (Auto) 0.9L, Monocytes # (Auto) 0.6, Eosinophils # (Auto) 0.2, Basophils # (Auto) 0.0, Sodium Level 133L, Potassium Level 5.9H, Chloride Level 100, Carbon Dioxide Level 23, Anion Gap 10, Blood Urea Nitrogen 5L, Creatinine 0.56L, Estimat Glomerular Filtration Rate > 60, BUN /Creatinine Ratio 9, Glucose Level 99, Calcium Level 8.5, Magnesium Level 2.9H, C-Reactive Protein High Sensitivity 6.35H Microbiology 08/03/18 MRSA Screen - Final, Complete MRSA not isolated Radiology Date of Exam: 08/05/18 HIP, RIGHT, 2 VIEWS EXAM: HIP, RIGHT, 2 VIEWS INDICATION: Right hip fracture. COMPARISON: Pelvis radiograph 08/03/2018. FINDINGS: New intramedullary piper and dynamic hip screw fixation of the right hip. Hardware components appear intact. The hip screw appears to breach the cortex of the right femoral head. Soft tissue shadows are unremarkable. IMPRESSION: New intramedullary piper and dynamic hip screw fixation of the right intertrochanteric right hip fracture. The dynamic hip screw appears to breach the cortex of the right femoral head. Assessment/Plan Assessment/Plan (1) HCAP (healthcare-associated pneumonia) Status: Acute Assessment & Plan: 08/07 -febrile, increased oxygen requirement -CXR with LLL infiltrate -start IV abx for HCAP - Cefepime, Levaquin, Vancomycin -pt will need 24-48 hours IV abx, then can transition to PO if otherwise stable 08/08 -Tmax 99.5 -2L NC with O2 sats 90-93% -Vanc, Levaquin, Cefepime Day 2 -planning take back to OR on Saturday, will complete abx IV to ensure full resolution and best coverage prior to operative procedure by ortho on Saturday (2) Hip fracture, right Status: Acute Assessment & Plan: - Managed by Ortho 08/04 POD #1 s/p repair, continue to defer to ortho PT feels patient would be good candidate for inpatient rehab when ready for discharge from acute; will place consult for evaluation 08/05 -good candidate for IRF, submitting for approval to insurance -working well with PT -increase home pain meds -ok to transfer to floor from ortho standpoint, okay from medical standpoint as well 08/06 -3 doses oxycodone, no other additional pain medication other than morphine ER -continues to work well with PT -insurance declined inpatient rehab, social work looking into rehab at retirement -tolerating PO well, saline lock IV 08/07 -continues to do well with PT -pt has been accepted to [facility] for skilled rehab 08/08 -hold placement, ortho planning revision procedure on Saturday -will continue abx for HCAP and pain control over the weekend Qualifiers: Qualified Codes: S72.001A - Fracture of unspecified part of neck of right femur, initial encounter for closed fracture (3) CAD (coronary artery disease) Status: Chronic Assessment & Plan: no cardiac complaints Qualifiers: Qualified Codes: I25.118 - Atherosclerotic heart disease of [place] coronary artery with other forms of angina pectoris (4) Asthma Status: Chronic Assessment & Plan: -awake and alert, stable on 2L NC -continue MAT protocol Qualifiers: Qualified Codes: J45.30 - Mild persistent asthma, uncomplicated (5) HTN (hypertension) Status: Chronic Assessment & Plan: - Will hold BP meds after surgery and restart as needed 08/04 -blood pressure stable -Cardiology also managing 08/05 -somewhat hypertensive overnight, but resolved by the time of exam 08/06 -blood pressure within desired limits 08/07 -blood pressure within desired limits 08/08 -stable BP Qualifiers: Qualified Codes: I10 - Essential (primary) hypertension (6) Chronic pain Status: Chronic Assessment & Plan: - Patient will likely need increased pain medication after surgery due to tolerance 08/04 -patient feels pain well controlled with current medications at this time 08/05 -pt has required IV fentanyl about every four hours -home dose of pain medication is morphine er 15 mg BID, which is what is currently ordered -will increased to Morphine ER 15 mg TID and oxycodone 5 mg Q2H PRN severe pain and see if pt can wean off IV pain medication -if needed, can consider increasing Morphine ER dose depending on how much additional medication patient needs after frequency increased 08/06 -pt doing well with morphine ER 15 mg TID and oxycodone 5 mg Q2H pRN, has only required 3 doses of PRN medication and none since this morning -will continue with current regimen for now 08/07 -pt with some increased pain, encouraged to ask for PRN medication when needed -if pain not well controlled, will consider increasing AM morphine ER to 30 mg 08/08 -pt with difficulty controlling pain at night -will increase night time morphine to 30 mg Qualifiers: Qualified Codes: G89.4 - Chronic pain syndrome (7) Tobacco abuse Status: Chronic Assessment & Plan: - Discussed the importance of cessation 08/04 -reinforced that cessation strongly encouraged (8) DVT prophylaxis Status: Acute Assessment & Plan: Lovenox and SCDs (9) Hyponatremia Status: Acute Assessment & Plan: Na 136 --> 133 (10) Hypomagnesemia Status: Resolved (11) Hyperkalemia Status: Acute Assessment & Plan: 08/08 -K 4.3 --> 5.9 -EKG obtained, no changes noted -Kayexalate x4 doses (12) Hypermagnesemia Status: Acute Assessment & Plan: 08/08 -1.8 --> 2.9 -recheck in AM Clinical Quality Measures DVT/VTE Risk/Contraindication: Risk Factor Score Per Nursin RFS Level Per Nursing on Admit: 4+=Very High Copy Copies To 1: [facility]/CHRISTIAN SIBLEY DO Aug 08, 2018 08:14
[2018-08-08 08:48] VITALS: BP 103/51
--- NOTE | 2018-08-08 09:06 | Diagnostic Imaging Report ---
INDICATION: Shortness of breath Frontal chest obtained at 9:05 a.m. and compared with yesterday. The heart is borderline in size. Mediastinal silhouette is unremarkable. There are chronic appearing increased interstitial markings which are similar to the previous study. There is hyperinflation compatible with COPD. There is a trace of pleural fluid on the left side. IMPRESSION: COPD changes with chronic appearing increased interstitial markings. Small left pleural effusion. No significant change compared to the previous study. Dictated by: Dictated on workstation # [id number]
--- NOTE | 2018-08-08 09:09 | Cardiology Progress Note ---
Cardiology SOAP Progress Note Subjective: No cardiac symptoms. No further fever. Objective: I&O/Vital Signs 08/08/18 08/08/18 08/08/18 08/08/18 02:10 06:44 08:10 08:48 Temp 98.9 Pulse 82 Resp 18 B/P (MAP) 103/51 (68) Pulse Ox 93 91 92 O2 Delivery Nasal Cannula Nasal Cannula Nasal Cannula Nasal Cannula O2 Flow Rate 2.00 2.00 4.00 3.00 08/08/18 00:00 Intake Total 1470 ml Balance 1470 ml Weight (Pounds): 101 Weight (Ounces): 2.0 Weight (Calculated Kilograms): [id number] Constitutional: No appears stated age, No AAO x 3, No apparent distress, No PERRL, No well-developed, No well-nourished, No other Respiratory: No accessory muscle use, No respiratory distress, No chest tender , No chest expansion is symmetric; chest is bilaterally symmetric; No lungs clear to percussion; lungs clear to auscultation; No crackles, No rhonchi, No rales, No stridor, No wheezing, No pleural rub, No other Cardiovascular: regular rate-rhythm; No irregularly irregular, No extra beats, No parasternal heave is noted, No JVD, No edema, No bradycardia, No tachycardia , No point of maximal impulse, No cardiac thrills are palpable; S1 and S2; No gallop/S3, No gallop/S4, No diastolic murmur, No systolic murmur, No friction rub, No click, No other Gastrointestional: No tender, No soft, No round, No distended, No pulsatile mass, No organomegaly, No guarding, No rebound, No tenderness, No hernia, No mass, No audible bowel sounds, No abnormal bowel sounds, No abdominal bruits, No spleenomegaly, No other Extremities: No normal range of motion, No non-tender, No normal inspection, No pedal edema, No calf tenderness, No normal capillary refill, No pelvis stable , No calf tenderness, No inflammation, No pedal edema, No slow capillary refill , No swelling, No other, No abrasion, No clubbing, No cyanosis, No ecchymosis, No laceration, No no lower extremity edema bilateral, No significant edema; tenderness; No wound Neurologic/Psychiatric: no motor/sensory deficits, alert, normal mood/affect, oriented x 3 Skin: No normal color, No warm/dry, No cyanosis, No cool, No diaphoresis, No damp, No ecchymosis, No jaundice, No mottled, No pallor, No rash, No tattoos/ piercings, No ulcerations, No rash on exposed areas, No ulcerations on exposed areas, No other Results/Procedures: Labs Laboratory Tests 08/08/18 04:16: White Blood Count 5.6, Red Blood Count 3.68L, Hemoglobin 11.5, Hematocrit 35, Mean Corpuscular Volume 95, Mean Corpuscular Hemoglobin 31, Mean Corpuscular Hemoglobin Concent 33, Red Cell Distribution Width 14.1, Platelet Count 118L, Mean Platelet Volume 9.9, Neutrophils (%) (Auto) 70, Lymphocytes (%) (Auto) 17, Monocytes (%) (Auto) 11, Eosinophils (%) (Auto) 3, Basophils (%) (Auto) 0, Neutrophils # (Auto) 3.9, Lymphocytes # (Auto) 0.9L, Monocytes # (Auto) 0.6, Eosinophils # (Auto) 0.2, Basophils # (Auto) 0.0, Sodium Level 133L, Potassium Level 5.9H, Chloride Level 100, Carbon Dioxide Level 23, Anion Gap 10, Blood Urea Nitrogen 5L, Creatinine 0.56L, Estimat Glomerular Filtration Rate > 60, BUN /Creatinine Ratio 9, Glucose Level 99, Calcium Level 8.5, Magnesium Level 2.9H, C-Reactive Protein High Sensitivity 6.35H Microbiology 08/03/18 MRSA Screen - Final, Complete MRSA not isolated A/P: Assessment/Dx: Admission Diagnosis Chest pain Coronary artery disease Hypertension Hyperlipidemia Hip fracture Plan: Assessment/Plan No further fever: Chest x-ray. IV antibiotics. Defer further evaluation to the primary team. Coronary artery disease, history of old myocardial infarction with multiple stents in the past, in 2000 she had proximal and distal circumflex stent 3.013 and 2.513 done in [place]. Had a cardiac catheterization done by Dr. Brooke in November 2017 which showed mild ostial left main coronary artery stenosis, LAD had patent stent with mild diffuse disease, circumflex artery has patent first obtuse marginal artery stent and after the first obtuse marginal branch in the mid circumflex there is a stent which has severe in-stent restenosis and distal to the first stent there is another stent that is occluded, failed attempt to intervention at that time. Patient had moderate diffuse disease in the right coronary artery that was treated medically. Patient had mild apical hypokinesis with ejection fraction 45-50 percent. Recurrent chest pain, treated conservatively for which she takes nitroglycerin sublingual Shortness of breath, history of COPD. Peripheral arterial disease, claudication, peripheral angiogram was done in September 2017 which showed [id number] disease in the distal abdominal aorta, mild to moderate disease diffusely down to the trifurcation with no obstructive disease Hypertension, history of borderline low blood pressure. Monitor blood pressure Hyperlipidemia, maintained on statin Pulmonary hypertension Valvular heart disease with moderate mitral regurgitation, moderate to severe tricuspid regurgitation Tobaccoism, still an active smoker. Right hip surgery postoperative - orthopedics Thank you for your consultation. Please call me if you have any questions. Luis Brooke MD, FACP, FACC, FSCAI, FHRS, CCDS Interventional Cardiology Cardiac Electrophysiology Vascular Medicine and Endovascular Interventions Aimee BROOKE MD Aug 08, 2018 9:08 am
--- NOTE | 2018-08-08 09:32 | Physical Therapy Daily Note ---
PT Daily Note-Current Subjective Patient continues to c/o right hip pain. Pain Numeric Pain Scale: 7 Location: Right Location Body Site: Hip Pain Description: Acute Mental Status Patient Orientation: Normal For Age Attachments: Oxygen Transfers Functional [place] Measure 0=Not Assessed/NA 4=Minimal Assistance 1=Total Assistance 5=Supervision or Setup 2=Maximal Assistance 6=Modified [place] 3=Moderate Assistance 7=Complete IndependenceIRFPAI Quality Coding Scale 6 Independent with activity with or without an assistive device 5 Patient requires set up or clean up by helper. Patient completes activity by themselves 4 Supervision or touching assist (CGA). [place] provide cues , steadying assist 3 The helper provides less than half the effort to complete the activity 2 The helper provides more than half the effort to complete the activity 1 Dependent. The helper does all the effort to complete an activity 7 Patient refused to complete or attempt activity 9 The patient did not perform the activity before the current illness or injury 88 Not attempted due to Medical conditions or safety concerns Transfers (B, C, W/C) (FIM): 6 Scootin Sit to/from Stand: 6 Weight Bearing Right Lower Extremity: Right Full Weight Bearing Left Lower Extremity: Left Full Weight Bearing Gait Training Gait (FIM): 6 Distance (FIM): 3=150 ft Distance: 175' Gait Level of Assist: 6 Gait Assistive Device: FWW slow and antalgic/functional Exercises Seated Therapy Exercises: Ankle pumps, Long arc quads, Hip flexion Seated Reps: 15 (2 sets) Assessment Patient progressing with treatment plan. PT Short Term Goals Short Term Goals Time Frame: Aug 21, 2018 Transfers (B,C,W/C) (FIM): 3 Gait (FIM): 1 Distance (FIM): 1=up to 49 ft Gait Distance Comment: 45' Gait Level of Assist: 3 Gait Assistive Device: FWW PT Data Warehouse Analyst Goals Long-Term Goals PT Data Warehouse Analyst Goals Time Frame: Aug 30, 2018 Transfers (B,C,W/C) (FIM): 5 Gait (FIM): 5 Gait distance (FIM): 3=150 ft Distance: 150' Gait Level of Assist: 5 Gait Assistive Device: FWW PT Plan Treatment/Plan Treatment Plan: Continue Plan of Care Treatment Plan: Bed Mobility, Education, Functional Activity Wilbert, Functional Strength, Gait, Safety, Therapeutic Exercise, Transfers Treatment Duration: Aug 30, 2018 Frequency: 11 times per week Estimated Hrs Per Day: .5 hour per day Patient and/or Family Agrees t: Yes (family) Time/GCodes Time In: 855 Time Out: 918 Total Billed Treatment Time: 23 Total Billed Treatment 1 visit EX 8 min GT 15 min NIDA MYLES PT Aug 08, 2018 09:32
[2018-08-08] MEDS: SOD POLYSTERENE 15 GM/60 ML (KAYEXALATE) UNIT DOSE PO SCH ×4 (09:43→23:16)
[2018-08-08] MEDS: CEFEPIME INJECTION 2,000 MG in NS (IVPB) 50 ML IV SCH (12:26)
[2018-08-08] MEDS ORDERED: VANCOMYCIN INJECTION 750 MG in NS (IVPB) 250 ML IV SCH (13:00)
--- NOTE | 2018-08-08 13:28 | Physical Therapy Progress Note ---
Therapy Progress Note Patient adamantly declined PT stating, with a smile, "I'm in too much pain and I just got up. I'm good. I don't want to do anything this afternoon." PT attempted to educate/encourage patient on actively participating with PT, however, patient continued to declined. RN notified. 1 ref NIDA MYLES PT Aug 08, 2018 13:28
--- NOTE | 2018-08-08 14:08 | Diagnostic Imaging Report ---
INDICATION: Right hip fracture. AP and frog-leg views of the right hip are obtained and compared with 08/05/2018. FINDINGS: Orthopedic hardware in the femoral neck and proximal shaft is again noted without change in alignment. Intertrochanteric fracture of the right proximal femur is in unchanged alignment compared to the prior study. The femoral head component of the device appears to closely oppose the cortex of the femoral head and may extend slightly beyond it. IMPRESSION: No change in alignment of right hip fracture with orthopedic hardware in place, when compared to 08/05/2018. Dictated by: Dictated on workstation # [id number]
[2018-08-08 16:30] VITALS: BP 119/59
[2018-08-08 20:15] VITALS: BP 128/64
[2018-08-08] MEDS: ATORVASTATIN 40 MG (LIPITOR) TABLET PO SCH (20:16)
[2018-08-09] VITALS: BP 158/82
[2018-08-09] MEDS: RT-ALBUTEROL/IPRATROPIUM 3 ML (DUONEB) VIAL INH SCH ×4 (02:29→14:27)
[2018-08-09 03:58] LABS: BASOPHILS % (AUTO) 0 % (0-10); EOSINOPHILS % (AUTO) 1 % (0-10); HEMATOCRIT 33 % (35-52); LYMPHOCYTES # (AUTO) 0.8 X 10^3 (1.0-4.0); LYMPHOCYTES % (AUTO) 13 % (12-44); MEAN CORPUSCULAR HEMOGLOBIN 31 PG (25-34); MEAN CORPUSCULAR HGB CONC 33 G/DL (32-36); MEAN CORPUSCULAR VOLUME 93 FL (80-99); MONOCYTES # (AUTO) 0.5 X 10^3 (0.0-1.0); MONOCYTES % (AUTO) 8 % (0-12); NEUTROPHILS # (AUTO) 4.9 X 10^3 (1.8-7.8); NEUTROPHILS % (AUTO) 79 % (42-75); PLATELET COUNT 263 10^3/uL (130-400); RED BLOOD COUNT 3.54 10^6/uL (4.35-5.85); RED CELL DISTRIBUTION WIDTH 13.8 % (10.0-14.5); WHITE BLOOD COUNT 6.2 10^3/uL (4.3-11.0)
[2018-08-09 04:16] LABS: BUN/CREATININE RATIO 17; CALCIUM 8.5 MG/DL (8.5-10.1); CARBON DIOXIDE 26 MMOL/L (21-32); CHLORIDE 100 MMOL/L (98-107); CREATININE SERUM 0.52 MG/DL (0.60-1.30); GFR ESTIMATED > 60; GLUCOSE 112 MG/DL (70-105); MAGNESIUM 1.6 MG/DL (1.8-2.4); POTASSIUM 3.5 MMOL/L (3.6-5.0); SODIUM 136 MMOL/L (135-145)
[2018-08-09 04:22] VITALS: BP 167/72
[2018-08-09] MEDS: PANTOPRAZOLE 40 MG (PROTONIX) TAB PO SCH (05:58)
[2018-08-09 07:53] VITALS: BP 115/62
[2018-08-09] MEDS: lisINopril 10 MG (PRINIVIL) TABLET PO SCH (09:36)
[2018-08-09] MEDS: PARoxetine 20 MG (PAXIL) TAB PO SCH (09:36)
[2018-08-09] MEDS: morphine ER 15 MG (MS CONTIN) TAB PO SCH ×2 (09:36→12:52)
[2018-08-09] MEDS: DOCUSATE SODIUM 100 MG (COLACE) CAP PO SCH ×3 (09:36→21:35)
[2018-08-09] MEDS: GABAPENTIN 600 MG (NEURONTIN) TAB PO SCH ×3 (09:36→21:35)
[2018-08-09] MEDS: ASPIRIN E.C. 81 MG (ECOTRIN) TAB PO SCH (09:36)
[2018-08-09] MEDS: meTOprolol TARTRATE 50 MG (LOPRESSOR) TAB PO SCH ×2 (09:38→21:35)
--- NOTE | 2018-08-09 10:42 | Physical Therapy Daily Note ---
PT Daily Note-Current Subjective States that she doesn't want to walk because she is going to have another surgery on Saturday. Agrees to bed exercises. Transfers Functional [place] Measure 0=Not Assessed/NA 4=Minimal Assistance 1=Total Assistance 5=Supervision or Setup 2=Maximal Assistance 6=Modified [place] 3=Moderate Assistance 7=Complete IndependenceIRFPAI Quality Coding Scale 6 Independent with activity with or without an assistive device 5 Patient requires set up or clean up by helper. Patient completes activity by themselves 4 Supervision or touching assist (CGA). [place] provide cues , steadying assist 3 The helper provides less than half the effort to complete the activity 2 The helper provides more than half the effort to complete the activity 1 Dependent. The helper does all the effort to complete an activity 7 Patient refused to complete or attempt activity 9 The patient did not perform the activity before the current illness or injury 88 Not attempted due to Medical conditions or safety concerns Weight Bearing Right Lower Extremity: Right Full Weight Bearing Left Lower Extremity: Left Full Weight Bearing Exercises Supine Ex: LE Protocol Supine Reps: 15 Assessment Current Status: Fair Progress Patient continues to refuse to ambulate. PT Short Term Goals Short Term Goals Time Frame: Aug 21, 2018 Transfers (B,C,W/C) (FIM): 3 Gait (FIM): 1 Distance (FIM): 1=up to 49 ft Gait Distance Comment: 45' Gait Level of Assist: 3 Gait Assistive Device: FWW PT [place] Goals [place] Goals PT Alf Goals Time Frame: Aug 30, 2018 Transfers (B,C,W/C) (FIM): 5 Gait (FIM): 5 Gait distance (FIM): 3=150 ft Distance: 150' Gait Level of Assist: 5 Gait Assistive Device: FWW PT Plan Treatment/Plan Treatment Plan: Continue Plan of Care Treatment Plan: Bed Mobility, Education, Functional Activity [place], Functional Strength, Gait, Safety, Therapeutic Exercise, Transfers Treatment Duration: Aug 30, 2018 Frequency: 11 times per week Estimated Hrs Per Day: .5 hour per day Patient and/or Family Agrees t: Yes (family) Time/GCodes Time In: 1030 Time Out: 1040 Total Billed Treatment Time: 10 Total Billed Treatment 1, EX x 10' DEEDEE RUANO PT Aug 09, 2018 10:42
--- NOTE | 2018-08-09 10:43 | Physical Therapy Progress Note ---
Therapy Progress Note Attempted PT treatment. Patient stated that his breakfast was coming. States that he can walk with one of the nurses and it was better for me to go work with someone that really needed it. DEEDEE RUANO PT Aug 09, 2018 10:43
--- NOTE | 2018-08-09 11:23 | Progress Note (SOAP) ---
Subjective Subjective/Events-last exam Overall the patient reports doing well, other than pain in her hip, especially at night. The plan yesterday was to increase her night morphine ER to 30 mg, however I forgot to enter the order, and so she did not receive the increased dose. She is back down to 2L O2, denies any shortness of breath or difficulty breathing. She is somewhat depressed at the length of her hospitalization, and knows that it will be several more days before she is discharged since ortho is planning a procedure first thing on Saturday. Again discussed with pt that ortho had conveyed to me that this was a much less invasive procedure than what would be required if she did not heal well and needed further intervention a few months from now; pt understands and is in agreement that she wants to do what they recommend so she can get better. No acute events. Review of Systems Date Seen by Provider: Aug 09, 2018 Time Seen by Provider: 13:55 General: No Chills, No Night Sweats HEENT: No Head Aches, No Dysphasia Pulmonary: No Dyspnea Cardiovascular: No: Chest Pain, Palpitations Gastrointestinal: No: Nausea, Vomiting, Abdominal Pain Genitourinary: No Retention Musculoskeletal: other (right hip pain) Neurological: No: Change in speech, Confusion, Seizures Objective Exam Last Set of Vital Signs Vital Signs Date Time Temp Pulse Resp B/P (MAP) Pulse Ox O2 Delivery O2 Flow Rate FiO2 08/09/18 11:03 95 Nasal Cannula 2.00 08/09/18 07:53 98.9 76 20 115/62 (79) 08/09/18 07:44 28 Capillary Refill : Less Than 3 SecondsLess Than 3 Seconds I&O Intake and Output 08/09/18 00:00 Intake Total 2750 ml Balance 2750 ml Intake Oral 2200 ml IV Total 550 ml # Voids 12 # Bowel Movements 1 General: Alert, Oriented X3, Cooperative, No Acute Distress HEENT: Atraumatic, EOMI, Mucous Memb Moist/[place] Neck: Supple, No Thyromegaly Lungs: Clear to Auscultation, Normal Air Movement Heart: Regular Rate, Normal S1, Normal S2 Abdomen: Normal Bowel Sounds, Soft, No Tenderness, No Masses Extremities: No Cyanosis, Other (right hip tender with surgical dressing) Skin: No Rashes Neuro: Normal Speech, Normal Tone, Sensation Intact, Cranial Nerves 3-12 NL Psych/Mental Status: Mental Status NL, Mood NL Results/Procedures Lab Laboratory Tests 08/09/18 03:05: White Blood Count 6.2, Red Blood Count 3.54L, Hemoglobin 11.0L, Hematocrit 33L, Mean Corpuscular Volume 93, Mean Corpuscular Hemoglobin 31, Mean Corpuscular Hemoglobin Concent 33, Red Cell Distribution Width 13.8, Platelet Count 263, Mean Platelet Volume 10.0, Neutrophils (%) (Auto) 79H, Lymphocytes (%) (Auto) 13 , Monocytes (%) (Auto) 8, Eosinophils (%) (Auto) 1, Basophils (%) (Auto) 0, Neutrophils # (Auto) 4.9, Lymphocytes # (Auto) 0.8L, Monocytes # (Auto) 0.5, Eosinophils # (Auto) 0.0, Basophils # (Auto) 0.0, Sodium Level 136, Potassium Level 3.5L, Chloride Level 100, Carbon Dioxide Level 26, Anion Gap 10, Blood Urea Nitrogen 9, Creatinine 0.52L, Estimat Glomerular Filtration Rate > 60, BUN/ Creatinine Ratio 17, Glucose Level 112H, Calcium Level 8.5, Magnesium Level 1.6L , C-Reactive Protein High Sensitivity 4.32H Microbiology 08/03/18 MRSA Screen - Final, Complete MRSA not isolated Radiology Date of Exam: 08/05/18 HIP, RIGHT, 2 VIEWS EXAM: HIP, RIGHT, 2 VIEWS INDICATION: Right hip fracture. COMPARISON: Pelvis radiograph 08/03/2018. FINDINGS: New intramedullary piper and dynamic hip screw fixation of the right hip. Hardware components appear intact. The hip screw appears to breach the cortex of the right femoral head. Soft tissue shadows are unremarkable. IMPRESSION: New intramedullary piper and dynamic hip screw fixation of the right intertrochanteric right hip fracture. The dynamic hip screw appears to breach the cortex of the right femoral head. Assessment/Plan Assessment/Plan (1) HCAP (healthcare-associated pneumonia) Status: Acute Assessment & Plan: -febrile, increased oxygen requirement -CXR with LLL infiltrate -start IV abx for HCAP - Cefepime, Levaquin, Vancomycin -pt will need 24-48 hours IV abx, then can transition to PO if otherwise stable 10/5 -Tmax 99.5 -2L NC with O2 sats 90-93% -Vanc, Levaquin, Cefepime Day 2 -planning take back to OR on Saturday, will complete abx IV to ensure full resolution and best coverage prior to operative procedure by ortho on Thursday 08/09 -afebrile -stable WBC -Vanc, Levaquin, Cefepime Day 3 (2) Hip fracture, right Status: Acute Assessment & Plan: - Managed by Ortho 08/04 POD #1 s/p repair, continue to defer to ortho PT feels patient would be good candidate for inpatient rehab when ready for discharge from acute; will place consult for evaluation 08/05 -good candidate for IRF, submitting for approval to insurance -working well with PT -increase home pain meds -ok to transfer to floor from ortho standpoint, okay from medical standpoint as well 08/06 -3 doses oxycodone, no other additional pain medication other than morphine ER -continues to work well with PT -insurance declined inpatient rehab, social work looking into rehab at snf -tolerating PO well, saline lock IV 08/07 -continues to do well with PT -pt has been accepted to [facility] for skilled rehab 08/08 -plan for take back to OR Saturday for ortho revision -placement on hold, will likely be ready next week when cleared after procedure Qualifiers: Qualified Codes: S72.001A - Fracture of unspecified part of neck of right femur, initial encounter for closed fracture (3) CAD (coronary artery disease) Status: Chronic Assessment & Plan: -no cardiac complaints Qualifiers: Qualified Codes: I25.118 - Atherosclerotic heart disease of [place] coronary artery with other forms of angina pectoris (4) Asthma Status: Chronic Assessment & Plan: -awake and alert, stable on 2L NC -continue MAT protocol Qualifiers: Qualified Codes: J45.30 - Mild persistent asthma, uncomplicated (5) HTN (hypertension) Status: Chronic Assessment & Plan: -blood pressure within desired limits Qualifiers: Qualified Codes: I10 - Essential (primary) hypertension (6) Chronic pain Status: Chronic Assessment & Plan: -pt was supposed to have PM dose of morphine ER increased to 30 mg last night, however order was not placed by me -will place order now and give patient morphine ER 30 mg tonight to see if pain control improved Qualifiers: Qualified Codes: G89.4 - Chronic pain syndrome (7) Tobacco abuse Status: Chronic Assessment & Plan: - Discussed the importance of cessation 08/04 -reinforced that cessation strongly encouraged (8) DVT prophylaxis Status: Acute Assessment & Plan: -lovenox held per ortho for surgery on Saturday -continue SCDs (9) Hyponatremia Status: Resolved Assessment & Plan: 133 --> 136 RESOLVED (10) Hypomagnesemia Status: Acute Assessment & Plan: 1.6, replace with 2 grams IVPB, recheck in AM (11) Hyperkalemia Status: Resolved (12) Hypermagnesemia Status: Resolved Clinical Quality Measures DVT/VTE Risk/Contraindication: Risk Factor Score Per Nursin RFS Level Per Nursing on Admit: 4+=Very High Copy Copies To 1: [facility]/CHRISTIAN SIBLEY DO Aug 09, 2018 11:23
[2018-08-09] MEDS ORDERED: TROUGH ORDER-PHARMACY XX NR (12:00)
[2018-08-09] MEDS: CEFEPIME INJECTION 2,000 MG in NS (IVPB) 50 ML IV SCH (12:14)
[2018-08-09] MEDS: VANCOMYCIN INJECTION 750 MG in NS (IVPB) 250 ML IV SCH (12:52)
[2018-08-09] MEDS ORDERED: KCL 20 MEQ TAB (K-DUR) PO ONE (14:00)
[2018-08-09] MEDS: LEVOFLOXACIN 750 MG/150 ML IV 150 ML IV SCH (14:09)
--- NOTE | 2018-08-09 14:11 | Cardiology Progress Note ---
Cardiology SOAP Progress Note Subjective: No cardiac complaints. Objective: I&O/Vital Signs 08/09/18 08/09/18 08/09/18 08/09/18 02:29 04:22 06:56 07:44 Temp 98.6 Pulse 72 Resp 16 B/P (MAP) 167/72 (103) Pulse Ox 95 97 95 95 O2 Delivery Nasal Cannula Nasal Cannula Nasal Cannula O2 Flow Rate 2.00 2.00 2.00 FiO2 28 08/09/18 08/09/18 08/09/18 07:53 08:59 11:03 Temp 98.9 Pulse 76 Resp 20 B/P (MAP) 115/62 (79) Pulse Ox 99 95 O2 Delivery Nasal Cannula Nasal Cannula Nasal Cannula O2 Flow Rate 2.00 2.00 2.00 08/09/18 00:00 Intake Total 2600 ml Balance 2600 ml Weight (Pounds): 84 Weight (Ounces): 2.0 Weight (Calculated Kilograms): 38.828077 Constitutional: No appears stated age, No AAO x 3, No apparent distress, No PERRL, No well-developed, No well-nourished, No other Respiratory: No accessory muscle use, No respiratory distress, No chest tender , No chest expansion is symmetric; chest is bilaterally symmetric; No lungs clear to percussion; lungs clear to auscultation; No crackles, No rhonchi, No rales, No stridor, No wheezing, No pleural rub, No other Cardiovascular: regular rate-rhythm; No irregularly irregular, No extra beats, No parasternal heave is noted, No JVD, No edema, No bradycardia, No tachycardia , No point of maximal impulse, No cardiac thrills are palpable; S1 and S2; No gallop/S3, No gallop/S4, No diastolic murmur, No systolic murmur, No friction rub, No click, No other Gastrointestional: No tender, No soft, No round, No distended, No pulsatile mass, No organomegaly, No guarding, No rebound, No tenderness, No hernia, No mass, No audible bowel sounds, No abnormal bowel sounds, No abdominal bruits, No spleenomegaly, No other Extremities: No normal range of motion, No non-tender, No normal inspection, No pedal edema, No calf tenderness, No normal capillary refill, No pelvis stable , No calf tenderness, No inflammation, No pedal edema, No slow capillary refill , No swelling, No other, No abrasion, No clubbing, No cyanosis, No ecchymosis, No laceration, No no lower extremity edema bilateral, No significant edema; tenderness; No wound Neurologic/Psychiatric: no motor/sensory deficits, alert, normal mood/affect, oriented x 3 Skin: No normal color, No warm/dry, No cyanosis, No cool, No diaphoresis, No damp, No ecchymosis, No jaundice, No mottled, No pallor, No rash, No tattoos/ piercings, No ulcerations, No rash on exposed areas, No ulcerations on exposed areas, No other Results/Procedures: Labs Laboratory Tests 08/09/18 03:05: White Blood Count 6.2, Red Blood Count 3.54L, Hemoglobin 11.0L, Hematocrit 33L, Mean Corpuscular Volume 93, Mean Corpuscular Hemoglobin 31, Mean Corpuscular Hemoglobin Concent 33, Red Cell Distribution Width 13.8, Platelet Count 263, Mean Platelet Volume 10.0, Neutrophils (%) (Auto) 79H, Lymphocytes (%) (Auto) 13 , Monocytes (%) (Auto) 8, Eosinophils (%) (Auto) 1, Basophils (%) (Auto) 0, Neutrophils # (Auto) 4.9, Lymphocytes # (Auto) 0.8L, Monocytes # (Auto) 0.5, Eosinophils # (Auto) 0.0, Basophils # (Auto) 0.0, Sodium Level 136, Potassium Level 3.5L, Chloride Level 100, Carbon Dioxide Level 26, Anion Gap 10, Blood Urea Nitrogen 9, Creatinine 0.52L, Estimat Glomerular Filtration Rate > 60, BUN/ Creatinine Ratio 17, Glucose Level 112H, Calcium Level 8.5, Magnesium Level 1.6L , C-Reactive Protein High Sensitivity 4.32H 08/09/18 11:48: Vancomycin Level Trough 1.9L Microbiology 08/03/18 MRSA Screen - Final, Complete MRSA not isolated A/P: Assessment/Dx: Admission Diagnosis Chest pain Coronary artery disease Hypertension Hyperlipidemia Hip fracture Plan: Assessment/Plan No further fever: Chest x-ray. IV antibiotics. Defer further evaluation to the primary team. Coronary artery disease, history of old myocardial infarction with multiple stents in the past, in 2000 she had proximal and distal circumflex stent 3.013 and 2.513 done in [place]. Had a cardiac catheterization done by Dr. Brooke in November 2017 which showed mild ostial left main coronary artery stenosis, LAD had patent stent with mild diffuse disease, circumflex artery has patent first obtuse marginal artery stent and after the first obtuse marginal branch in the mid circumflex there is a stent which has severe in-stent restenosis and distal to the first stent there is another stent that is occluded, failed attempt to intervention at that time. Patient had moderate diffuse disease in the right coronary artery that was treated medically. Patient had mild apical hypokinesis with ejection fraction 45-50 percent. Recurrent chest pain, treated conservatively for which she takes nitroglycerin sublingual Shortness of breath, history of COPD. Peripheral arterial disease, claudication, peripheral angiogram was done in September 2017 which showed [id number] disease in the distal abdominal aorta, mild to moderate disease diffusely down to the trifurcation with no obstructive disease Hypertension, history of borderline low blood pressure. Monitor blood pressure Hyperlipidemia, maintained on statin Pulmonary hypertension Valvular heart disease with moderate mitral regurgitation, moderate to severe tricuspid regurgitation Tobaccoism, still an active smoker. Right hip surgery postoperative - orthopedics Thank you for your consultation. Please call me if you have any questions. Luis Brooke MD, FACP, FACC, FSCAI, FHRS, CCDS Interventional Cardiology Cardiac Electrophysiology Vascular Medicine and Endovascular Interventions Aimee BROOKE MD Aug 09, 2018 14:11
[2018-08-09] MEDS: MAGNESIUM 1 GM/100 ML IVPB 100 ML IV SCH ×2 (15:34→17:27)
[2018-08-09 16:10] VITALS: BP 124/66
[2018-08-09] MEDS ORDERED: NS IV 500 ML 500 ML ONE (16:48)
[2018-08-09 21:16] VITALS: BP 128/68
[2018-08-09] MEDS: morphine ER 30 MG (MS CONTIN) TAB PO SCH (21:35)
[2018-08-09] MEDS: ATORVASTATIN 40 MG (LIPITOR) TABLET PO SCH (21:35)
[2018-08-10 00:09] VITALS: BP 106/53
[2018-08-10] MEDS: VANCOMYCIN INJECTION 750 MG in NS (IVPB) 250 ML IV SCH ×2 (01:14→12:57)
[2018-08-10 03:29] LABS: BASOPHILS % (AUTO) 0 % (0-10); EOSINOPHILS % (AUTO) 0 % (0-10); HEMATOCRIT 32 % (35-52); HEMOGLOBIN 10.3 G/DL (11.5-16.0); LYMPHOCYTES # (AUTO) 1.2 X 10^3 (1.0-4.0); LYMPHOCYTES % (AUTO) 17 % (12-44); MEAN CORPUSCULAR HEMOGLOBIN 31 PG (25-34); MEAN CORPUSCULAR HGB CONC 33 G/DL (32-36); MEAN CORPUSCULAR VOLUME 94 FL (80-99); MEAN PLATELET VOLUME 9.7 FL (7.4-10.4); MONOCYTES # (AUTO) 0.7 X 10^3 (0.0-1.0); MONOCYTES % (AUTO) 10 % (0-12); NEUTROPHILS # (AUTO) 5.2 X 10^3 (1.8-7.8); NEUTROPHILS % (AUTO) 73 % (42-75); PLATELET COUNT 300 10^3/uL (130-400); RED BLOOD COUNT 3.35 10^6/uL (4.35-5.85); RED CELL DISTRIBUTION WIDTH 14.2 % (10.0-14.5); WHITE BLOOD COUNT 7.1 10^3/uL (4.3-11.0)
[2018-08-10 03:57] LABS: BUN/CREATININE RATIO 19; CALCIUM 8.1 MG/DL (8.5-10.1); CARBON DIOXIDE 26 MMOL/L (21-32); CHLORIDE 102 MMOL/L (98-107); CREATININE SERUM 0.57 MG/DL (0.60-1.30); GFR ESTIMATED > 60; GLUCOSE 87 MG/DL (70-105); POTASSIUM 3.3 MMOL/L (3.6-5.0); SODIUM 135 MMOL/L (135-145)
[2018-08-10] MEDS: PANTOPRAZOLE 40 MG (PROTONIX) TAB PO SCH (05:30)
[2018-08-10] MEDS: RT-ALBUTEROL/IPRATROPIUM 3 ML (DUONEB) VIAL INH SCH ×4 (07:16→19:03)
[2018-08-10 08:00] VITALS: BP 120/57
[2018-08-10] MEDS: DOCUSATE SODIUM 100 MG (COLACE) CAP PO SCH ×3 (08:53→20:17)
[2018-08-10] MEDS: morphine ER 15 MG (MS CONTIN) TAB PO SCH ×2 (08:53→12:24)
[2018-08-10] MEDS: ASPIRIN E.C. 81 MG (ECOTRIN) TAB PO SCH (08:54)
[2018-08-10] MEDS: PARoxetine 20 MG (PAXIL) TAB PO SCH (08:54)
[2018-08-10] MEDS: meTOprolol TARTRATE 50 MG (LOPRESSOR) TAB PO SCH ×2 (08:54→20:17)
[2018-08-10] MEDS: lisINopril 10 MG (PRINIVIL) TABLET PO SCH (08:54)
[2018-08-10] MEDS: GABAPENTIN 600 MG (NEURONTIN) TAB PO SCH ×3 (08:54→20:18)
[2018-08-10] MEDS ORDERED: KCL 20 MEQ TAB (K-DUR) PO ONE (11:15)
--- NOTE | 2018-08-10 11:15 | Progress Note (SOAP) ---
Subjective Subjective/Events-last exam No acute events overnight. Patient reports pain at night was much better controlled with increased night dose of morphine ER. Is ready for procedure tomorrow, and hopeful that it will make it easier for her to work on PT with less hip pain. Pt is improving and was even able to wean down to 1L NC for a time; has multiple documentations of sats 97-98% on the 2L NC. Review of Systems Date Seen by Provider: Aug 10, 2018 Time Seen by Provider: 15:15 General: No Chills, No Night Sweats HEENT: No Head Aches, No Visual Changes, No Dysphasia Pulmonary: No Dyspnea, No Cough Cardiovascular: No: Chest Pain, Palpitations Gastrointestinal: No: Nausea, Vomiting, Abdominal Pain Genitourinary: No Retention Musculoskeletal: other (right hip pain) Neurological: No: Change in speech, Confusion, Seizures Objective Exam Last Set of Vital Signs Vital Signs Date Time Temp Pulse Resp B/P (MAP) Pulse Ox O2 Delivery O2 Flow Rate FiO2 08/10/18 08:00 Nasal Cannula 1.00 08/10/18 08:00 98.2 72 16 120/57 (78) 92 08/09/18 07:44 28 Capillary Refill : Less Than 3 SecondsLess Than 3 Seconds I&O Intake and Output 08/10/18 00:00 Intake Total 1300 ml Balance 1300 ml Intake Oral 800 ml IV Total 500 ml # Voids 6 # Bowel Movements 1 General: Alert, Oriented X3, Cooperative, No Acute Distress HEENT: Atraumatic, EOMI, Mucous Memb Moist/[place] Neck: Supple, No Thyromegaly Lungs: Clear to Auscultation, Normal Air Movement Heart: Regular Rate, Normal S1, Normal S2 Abdomen: Normal Bowel Sounds, Soft, No Tenderness, No Masses Extremities: No Cyanosis, Normal Pulses Skin: No Rashes, Other (right hip surgical incision dressed, clean and intact) Neuro: Normal Speech, Normal Tone, Sensation Intact, Cranial Nerves 3-12 NL Psych/Mental Status: Mental Status NL, Mood NL Results/Procedures Lab Laboratory Tests 08/09/18 11:48: Vancomycin Level Trough 1.9L 08/10/18 02:50: White Blood Count 7.1, Red Blood Count 3.35L, Hemoglobin 10.3L, Hematocrit 32L, Mean Corpuscular Volume 94, Mean Corpuscular Hemoglobin 31, Mean Corpuscular Hemoglobin Concent 33, Red Cell Distribution Width 14.2, Platelet Count 300, Mean Platelet Volume 9.7, Neutrophils (%) (Auto) 73, Lymphocytes (%) (Auto) 17, Monocytes (%) (Auto) 10, Eosinophils (%) (Auto) 0, Basophils (%) (Auto) 0, Neutrophils # (Auto) 5.2, Lymphocytes # (Auto) 1.2, Monocytes # (Auto) 0.7, Eosinophils # (Auto) 0.0, Basophils # (Auto) 0.0, Sodium Level 135, Potassium Level 3.3L, Chloride Level 102, Carbon Dioxide Level 26, Anion Gap 7, Blood Urea Nitrogen 11, Creatinine 0.57L, Estimat Glomerular Filtration Rate > 60, BUN /Creatinine Ratio 19, Glucose Level 87, Calcium Level 8.1L, Magnesium Level 2.0 , C-Reactive Protein High Sensitivity 2.47H Microbiology 08/03/18 MRSA Screen - Final, Complete MRSA not isolated Radiology Date of Exam: 08/05/18 HIP, RIGHT, 2 VIEWS EXAM: HIP, RIGHT, 2 VIEWS INDICATION: Right hip fracture. COMPARISON: Pelvis radiograph 08/03/2018. FINDINGS: New intramedullary piper and dynamic hip screw fixation of the right hip. Hardware components appear intact. The hip screw appears to breach the cortex of the right femoral head. Soft tissue shadows are unremarkable. IMPRESSION: New intramedullary piper and dynamic hip screw fixation of the right intertrochanteric right hip fracture. The dynamic hip screw appears to breach the cortex of the right femoral head. Assessment/Plan Assessment/Plan (1) HCAP (healthcare-associated pneumonia) Status: Acute Assessment & Plan: -febrile, increased oxygen requirement -CXR with LLL infiltrate -start IV abx for HCAP - Cefepime, Levaquin, Vancomycin -pt will need 24-48 hours IV abx, then can transition to PO if otherwise stable 08/08 -Tmax 99.5 -2L NC with O2 sats 90-93% -Vanc, Levaquin, Cefepime Day 2 -planning take back to OR on Saturday, will complete abx IV to ensure full resolution and best coverage prior to operative procedure by ortho on Thursday 08/09 -afebrile -stable WBC -Vanc, Levaquin, Cefepime Day 3 08/10 -afebrile -stable WBC -Vanc, Levaquin, Cefepime Day 4 (2) Hip fracture, right Status: Acute Assessment & Plan: - Managed by Ortho -plan for take back to OR tomorrow for revision procedure Qualifiers: Qualified Codes: S72.001A - Fracture of unspecified part of neck of right femur, initial encounter for closed fracture (3) CAD (coronary artery disease) Status: Chronic Assessment & Plan: -no cardiac complaints Qualifiers: Qualified Codes: I25.118 - Atherosclerotic heart disease of [place] coronary artery with other forms of angina pectoris (4) Asthma Status: Chronic Assessment & Plan: -awake and alert, stable on 2L NC, able to wean down to 1L at times -continue MAT protocol Qualifiers: Qualified Codes: J45.30 - Mild persistent asthma, uncomplicated (5) HTN (hypertension) Status: Chronic Assessment & Plan: -blood pressure within desired limits Qualifiers: Qualified Codes: I10 - Essential (primary) hypertension (6) Chronic pain Status: Chronic Assessment & Plan: - Patient will likely need increased pain medication after surgery due to tolerance 08/04 -patient feels pain well controlled with current medications at this time 08/05 -pt has required IV fentanyl about every four hours -home dose of pain medication is morphine er 15 mg BID, which is what is currently ordered -will increased to Morphine ER 15 mg TID and oxycodone 5 mg Q2H PRN severe pain and see if pt can wean off IV pain medication -if needed, can consider increasing Morphine ER dose depending on how much additional medication patient needs after frequency increased 08/06 -pt doing well with morphine ER 15 mg TID and oxycodone 5 mg Q2H pRN, has only required 3 doses of PRN medication and none since this morning -will continue with current regimen for now 08/07 -pt with some increased pain, encouraged to ask for PRN medication when needed -if pain not well controlled, will consider increasing AM morphine ER to 30 mg 08/09 -nocturnal pain much better with increased morphine ER to 30 mg at night -will not adjust daytime morphine ER at this time Qualifiers: Qualified Codes: G89.4 - Chronic pain syndrome (7) Tobacco abuse Status: Chronic Assessment & Plan: - Discussed the importance of cessation 08/04 -reinforced that cessation strongly encouraged (8) DVT prophylaxis Status: Acute Assessment & Plan: -lovenox on hold per ortho - plan for OR in AM -continue SCDs (9) Hyponatremia Status: Resolved (10) Hypomagnesemia Status: Resolved Assessment & Plan: 1.6 --> 2.0 RESOLVED (11) Hypokalemia Status: Acute Assessment & Plan: 08/10 -3.3 --> replaced with 40 mEq PO Clinical Quality Measures DVT/VTE Risk/Contraindication: Risk Factor Score Per Nursin RFS Level Per Nursing on Admit: 4+=Very High Copy Copies To 1: [facility]/CHRISTIAN SIBLEY DO Aug 10, 2018 11:15
[2018-08-10] MEDS: CEFEPIME INJECTION 2,000 MG in NS (IVPB) 50 ML IV SCH (12:14)
--- NOTE | 2018-08-10 14:32 | Cardiology Progress Note ---
Cardiology SOAP Progress Note Subjective: No cardiac complaints. Objective: I&O/Vital Signs 08/10/18 08/10/18 08/10/18 07:21 08:00 08:00 Temp 98.2 Pulse 72 Resp 16 B/P (MAP) 120/57 (78) Pulse Ox 93 92 O2 Delivery Nasal Cannula Nasal Cannula Nasal Cannula O2 Flow Rate 2.00 2.00 1.00 08/10/18 00:00 Intake Total 1050 ml Balance 1050 ml Weight (Pounds): 84 Weight (Ounces): 2.0 Weight (Calculated Kilograms): 38.969799 Constitutional: No appears stated age, No AAO x 3, No apparent distress, No PERRL, No well-developed, No well-nourished, No other Respiratory: No accessory muscle use, No respiratory distress, No chest tender , No chest expansion is symmetric; chest is bilaterally symmetric; No lungs clear to percussion; lungs clear to auscultation; No crackles, No rhonchi, No rales, No stridor, No wheezing, No pleural rub, No other Cardiovascular: regular rate-rhythm; No irregularly irregular, No extra beats, No parasternal heave is noted, No JVD, No edema, No bradycardia, No tachycardia , No point of maximal impulse, No cardiac thrills are palpable; S1 and S2; No gallop/S3, No gallop/S4, No diastolic murmur, No systolic murmur, No friction rub, No click, No other Gastrointestional: No tender, No soft, No round, No distended, No pulsatile mass, No organomegaly, No guarding, No rebound, No tenderness, No hernia, No mass, No audible bowel sounds, No abnormal bowel sounds, No abdominal bruits, No spleenomegaly, No other Extremities: No normal range of motion, No non-tender, No normal inspection, No pedal edema, No calf tenderness, No normal capillary refill, No pelvis stable , No calf tenderness, No inflammation, No pedal edema, No slow capillary refill , No swelling, No other, No abrasion, No clubbing, No cyanosis, No ecchymosis, No laceration, No no lower extremity edema bilateral, No significant edema; tenderness; No wound Neurologic/Psychiatric: no motor/sensory deficits, alert, normal mood/affect, oriented x 3 Skin: No normal color, No warm/dry, No cyanosis, No cool, No diaphoresis, No damp, No ecchymosis, No jaundice, No mottled, No pallor, No rash, No tattoos/ piercings, No ulcerations, No rash on exposed areas, No ulcerations on exposed areas, No other Results/Procedures: Labs Laboratory Tests 08/10/18 02:50: White Blood Count 7.1, Red Blood Count 3.35L, Hemoglobin 10.3L, Hematocrit 32L, Mean Corpuscular Volume 94, Mean Corpuscular Hemoglobin 31, Mean Corpuscular Hemoglobin Concent 33, Red Cell Distribution Width 14.2, Platelet Count 300, Mean Platelet Volume 9.7, Neutrophils (%) (Auto) 73, Lymphocytes (%) (Auto) 17, Monocytes (%) (Auto) 10, Eosinophils (%) (Auto) 0, Basophils (%) (Auto) 0, Neutrophils # (Auto) 5.2, Lymphocytes # (Auto) 1.2, Monocytes # (Auto) 0.7, Eosinophils # (Auto) 0.0, Basophils # (Auto) 0.0, Sodium Level 135, Potassium Level 3.3L, Chloride Level 102, Carbon Dioxide Level 26, Anion Gap 7, Blood Urea Nitrogen 11, Creatinine 0.57L, Estimat Glomerular Filtration Rate > 60, BUN /Creatinine Ratio 19, Glucose Level 87, Calcium Level 8.1L, Magnesium Level 2.0 , C-Reactive Protein High Sensitivity 2.47H Microbiology 08/03/18 MRSA Screen - Final, Complete MRSA not isolated A/P: Assessment/Dx: Admission Diagnosis Chest pain Coronary artery disease Hypertension Hyperlipidemia Hip fracture Plan: Assessment/Plan Coronary artery disease, history of old myocardial infarction with multiple stents in the past, in 2000 she had proximal and distal circumflex stent 3.013 and 2.513 done in [place]. Had a cardiac catheterization done by Dr. Brooke in November 2017 which showed mild ostial left main coronary artery stenosis, LAD had patent stent with mild diffuse disease, circumflex artery has patent first obtuse marginal artery stent and after the first obtuse marginal branch in the mid circumflex there is a stent which has severe in-stent restenosis and distal to the first stent there is another stent that is occluded, failed attempt to intervention at that time. Patient had moderate diffuse disease in the right coronary artery that was treated medically. Patient had mild apical hypokinesis with ejection fraction 45-50 percent. Recurrent chest pain, treated conservatively for which she takes nitroglycerin sublingual Shortness of breath, history of COPD. Peripheral arterial disease, claudication, peripheral angiogram was done in September 2017 which showed [id number] disease in the distal abdominal aorta, mild to moderate disease diffusely down to the trifurcation with no obstructive disease Hypertension, history of borderline low blood pressure. Monitor blood pressure Hyperlipidemia, maintained on statin Pulmonary hypertension Valvular heart disease with moderate mitral regurgitation, moderate to severe tricuspid regurgitation Tobaccoism, still an active smoker. Right hip surgery postoperative - orthopedics; inpatient rehabilitation is recommended. Thank you for your consultation. Please call me if you have any questions. Luis Brooke MD, FACP, FACC, FSCAI, FHRS, CCDS Interventional Cardiology Cardiac Electrophysiology Vascular Medicine and Endovascular Interventions Aimee BROOKE MD Aug 10, 2018 2:32 pm
[2018-08-10 16:00] VITALS: BP 134/63
[2018-08-10] MEDS: morphine ER 30 MG (MS CONTIN) TAB PO SCH (20:17)
[2018-08-10] MEDS: ATORVASTATIN 40 MG (LIPITOR) TABLET PO SCH (20:18)
[2018-08-11] MEDS: VANCOMYCIN INJECTION 750 MG in NS (IVPB) 250 ML IV SCH (00:13)
[2018-08-11 00:52] VITALS: BP 110/53
[2018-08-11 04:26] LABS: BASOPHILS % (AUTO) 0 % (0-10); EOSINOPHILS # (AUTO) 0.1 10^3/uL (0.0-0.3); EOSINOPHILS % (AUTO) 1 % (0-10); HEMATOCRIT 29 % (35-52); HEMOGLOBIN 9.8 G/DL (11.5-16.0); LYMPHOCYTES # (AUTO) 1.2 X 10^3 (1.0-4.0); LYMPHOCYTES % (AUTO) 20 % (12-44); MEAN CORPUSCULAR HEMOGLOBIN 32 PG (25-34); MEAN CORPUSCULAR HGB CONC 34 G/DL (32-36); MEAN CORPUSCULAR VOLUME 95 FL (80-99); MEAN PLATELET VOLUME 9.8 FL (7.4-10.4); MONOCYTES # (AUTO) 0.5 X 10^3 (0.0-1.0); MONOCYTES % (AUTO) 9 % (0-12); NEUTROPHILS # (AUTO) 4.3 X 10^3 (1.8-7.8); NEUTROPHILS % (AUTO) 70 % (42-75); PLATELET COUNT 314 10^3/uL (130-400); RED BLOOD COUNT 3.05 10^6/uL (4.35-5.85); WHITE BLOOD COUNT 6.1 10^3/uL (4.3-11.0)
[2018-08-11] MEDS: PANTOPRAZOLE 40 MG (PROTONIX) TAB PO SCH (04:37)
[2018-08-11 04:45] LABS: BUN/CREATININE RATIO 29; CALCIUM 8.2 MG/DL (8.5-10.1); CARBON DIOXIDE 26 MMOL/L (21-32); CHLORIDE 102 MMOL/L (98-107); CREATININE SERUM 0.52 MG/DL (0.60-1.30); GFR ESTIMATED > 60; GLUCOSE 83 MG/DL (70-105); MAGNESIUM 1.7 MG/DL (1.8-2.4); POTASSIUM 3.6 MMOL/L (3.6-5.0); SODIUM 136 MMOL/L (135-145)
[2018-08-11 05:47] LABS: PROTHROMBIN TIME PATIENT 13.5 SEC (12.2-14.7)
[2018-08-11 06:45] VITALS: BP 116/56
[2018-08-11] MEDS ORDERED: LACTATED RINGERS 0 ML IV ONE (06:56)
[2018-08-11] MEDS ORDERED: LIDOCAINE PF 2% 2 ML (XYLOCAINE) VIAL ONE ×2 (06:56→06:57)
[2018-08-11] MEDS ORDERED: SEVOFLURANE (ULTANE) 15 ML INHAL SOLN ONE (06:56)
[2018-08-11] MEDS ORDERED: proPOfol 200 MG/20 ML (DIPRIVAN) VIAL IV ONE (06:56)
[2018-08-11] MEDS ORDERED: fentaNYL INJECTION 100 MCG/2 ML AMP ONE (06:57)
[2018-08-11] MEDS ORDERED: MIDAZOLAM 2 MG/2 ML (VERSED) VIAL ONE (06:57)
[2018-08-11] MEDS: RT-ALBUTEROL/IPRATROPIUM 3 ML (DUONEB) VIAL INH SCH ×4 (07:21→19:18)
[2018-08-11] MEDS ORDERED: ceFAZolin INJECTION 1,000 MG in NS (IVPB) 50 ML IV NR (07:30)
--- NOTE | 2018-08-11 07:32 | Progress Note (SOAP) ---
Subjective Date Seen by a Provider: Aug 11, 2018 Time Seen by a Provider: 07:30 Subjective/Events-last exam ELVA. PLan is to bring back to OR for revision of helical blade. She has severe pain with weightbearing. Objective Exam Vital Signs Date Time Temp Pulse Resp B/P (MAP) Pulse Ox O2 Delivery O2 Flow Rate FiO2 08/11/18 00:52 97.8 74 20 110/53 (72) 96 Nasal Cannula 2.00 08/10/18 20:00 Nasal Cannula 2.00 08/10/18 19:03 92 Nasal Cannula 2.00 08/10/18 16:00 99.2 69 20 134/63 (86) 95 Nasal Cannula 2.00 08/10/18 15:01 97 Nasal Cannula 2.00 08/10/18 08:00 Nasal Cannula 1.00 08/10/18 08:00 98.2 72 16 120/57 (78) 92 Nasal Cannula 2.00 I & O 08/11/18 06:59 Intake Total 2690 ml Balance 2690 ml Capillary Refill : Less Than 3 SecondsLess Than 3 Seconds General Appearance: No Apparent Distress Extremity: Other (wounds cdi, 5/5 motor) Results Lab Laboratory Tests 08/11/18 03:47: Prothrombin Time 13.5, INR Comment 1.0 08/11/18 03:49: White Blood Count 6.1, Red Blood Count 3.05L, Hemoglobin 9.8L, Hematocrit 29L, Mean Corpuscular Volume 95, Mean Corpuscular Hemoglobin 32, Mean Corpuscular Hemoglobin Concent 34, Red Cell Distribution Width 14.0, Platelet Count 314, Mean Platelet Volume 9.8, Neutrophils (%) (Auto) 70, Lymphocytes (%) (Auto) 20, Monocytes (%) (Auto) 9, Eosinophils (%) (Auto) 1, Basophils (%) (Auto) 0, Neutrophils # (Auto) 4.3, Lymphocytes # (Auto) 1.2, Monocytes # (Auto) 0.5, Eosinophils # (Auto) 0.1, Basophils # (Auto) 0.0, Sodium Level 136, Potassium Level 3.6, Chloride Level 102, Carbon Dioxide Level 26, Anion Gap 8, Blood Urea Nitrogen 15, Creatinine 0.52L, Estimat Glomerular Filtration Rate > 60, BUN/ Creatinine Ratio 29, Glucose Level 83, Calcium Level 8.2L, Magnesium Level 1.7L Microbiology 08/03/18 MRSA Screen - Final, Complete MRSA not isolated Assessment/Plan Assessment/Plan Assess & Plan/Chief Complaint ASSESSMENT: painful internmal hardware PLAN: revision R helical blade Clinical Quality Measures Admission Status Admission Dx ASSESSMENT: R intertrochanteric hip fracture PLAN: Intramedullary piper R hip consult dr dallas for medical management DVT/VTE Risk/Contraindication: Risk Factor Score Per Nursin RFS Level Per Nursing on Admit: 4+=Very High DESIRE GONZALEZ DO Aug 11, 2018 07:32
[2018-08-11] MEDS ORDERED: NS IV 1000 ML 1,000 ML ONE (07:53)
--- NOTE | 2018-08-11 08:13 | Physical Therapy Progress Note ---
Therapy Progress Note Patient to have revision of hardware on this date right hip. PT to evaluate in [facility] PT Aug 11, 2018 08:13
[2018-08-11] MEDS ORDERED: MEPERIDINE (DEMEROL) INJ 50 MG/ML IVP ONE (08:30)
[2018-08-11] MEDS ORDERED: NS IV 1000 ML 1,000 ML IV PRN (08:30)
[2018-08-11] MEDS ORDERED: ONDANSETRON 4 MG/2 ML (SDV) Z0FRAN IVP PRN (08:30)
[2018-08-11] MEDS ORDERED: morphine INJ 10 MG/ML 1ML (SYR OR VIAL) IVP ONE (08:30)
[2018-08-11] MEDS ORDERED: fentaNYL INJECTION 100 MCG/2 ML AMP IVP ONE (08:30)
--- NOTE | 2018-08-11 08:53 | Occ Therapy Progress Note ---
Therapy Progress Note Patient to have revision of hardware on this date right hip. OT will check on pt tomorrow. LOTTIE HOYT Aug 11, 2018 08:53
--- NOTE | 2018-08-11 09:11 | Diagnostic Imaging Report ---
INDICATION: Hip ORIF. COMPARISON: 08/08/2018. FINDINGS: Multiple intraoperative image intensifier views of the right hip were obtained during ORIF. The images provided show a short intramedullary piper within the proximal right femoral shaft intersecting a screw which traverses the femoral head and neck. Note is made that the screw is positioned more centrally within the femoral head when compared to radiographs from 08/08/2018. Please note, the interpreting radiologist was not present during the procedure. IMPRESSION: Fluoroscopic guidance was provided during right hip ORIF. Dictated by: Dictated on workstation # [id number]
[2018-08-11 09:55] VITALS: BP 110/56
[2018-08-11] MEDS: ASPIRIN E.C. 81 MG (ECOTRIN) TAB PO SCH (10:17)
[2018-08-11] MEDS: GABAPENTIN 600 MG (NEURONTIN) TAB PO SCH ×3 (10:17→20:30)
[2018-08-11] MEDS: PARoxetine 20 MG (PAXIL) TAB PO SCH (10:18)
[2018-08-11] MEDS: DOCUSATE SODIUM 100 MG (COLACE) CAP PO SCH ×3 (10:18→20:31)
[2018-08-11] MEDS: meTOprolol TARTRATE 50 MG (LOPRESSOR) TAB PO SCH ×2 (10:19→20:31)
[2018-08-11] MEDS: morphine ER 15 MG (MS CONTIN) TAB PO SCH ×2 (10:24→13:50)
--- NOTE | 2018-08-11 11:06 | Progress Note (SOAP) ---
Subjective Subjective/Events-last exam Afebrile, reports she is feeling fairly well this am. Went to OR this morning. Review of Systems Date Seen by Provider: Aug 11, 2018 Time Seen by Provider: 09:34 Objective Exam Last Set of Vital Signs Vital Signs Date Time Temp Pulse Resp B/P (MAP) Pulse Ox O2 Delivery O2 Flow Rate FiO2 08/11/18 10:29 98 Nasal Cannula 3.00 08/11/18 09:55 97.8 62 16 110/56 (74) 08/09/18 07:44 28 Capillary Refill : Less Than 3 SecondsLess Than 3 Seconds I&O Intake and Output 08/11/18 00:00 Intake Total 2750 ml Balance 2750 ml Intake Oral 1450 ml IV Total 1300 ml # Voids 8 # Bowel Movements 1 General: Alert, No Acute Distress Lungs: Clear to Auscultation, Normal Air Movement Heart: Regular Rate, No Murmurs Neuro: Normal Speech Psych/Mental Status: Mood NL Results/Procedures Lab Laboratory Tests 08/11/18 03:47: Prothrombin Time 13.5, INR Comment 1.0 08/11/18 03:49: White Blood Count 6.1, Red Blood Count 3.05L, Hemoglobin 9.8L, Hematocrit 29L, Mean Corpuscular Volume 95, Mean Corpuscular Hemoglobin 32, Mean Corpuscular Hemoglobin Concent 34, Red Cell Distribution Width 14.0, Platelet Count 314, Mean Platelet Volume 9.8, Neutrophils (%) (Auto) 70, Lymphocytes (%) (Auto) 20, Monocytes (%) (Auto) 9, Eosinophils (%) (Auto) 1, Basophils (%) (Auto) 0, Neutrophils # (Auto) 4.3, Lymphocytes # (Auto) 1.2, Monocytes # (Auto) 0.5, Eosinophils # (Auto) 0.1, Basophils # (Auto) 0.0, Sodium Level 136, Potassium Level 3.6, Chloride Level 102, Carbon Dioxide Level 26, Anion Gap 8, Blood Urea Nitrogen 15, Creatinine 0.52L, Estimat Glomerular Filtration Rate > 60, BUN/ Creatinine Ratio 29, Glucose Level 83, Calcium Level 8.2L, Magnesium Level 1.7L Microbiology 08/03/18 MRSA Screen - Final, Complete MRSA not isolated Radiology Date of Exam: 08/05/18 HIP, RIGHT, 2 VIEWS EXAM: HIP, RIGHT, 2 VIEWS INDICATION: Right hip fracture. COMPARISON: Pelvis radiograph 08/03/2018. FINDINGS: New intramedullary piper and dynamic hip screw fixation of the right hip. Hardware components appear intact. The hip screw appears to breach the cortex of the right femoral head. Soft tissue shadows are unremarkable. IMPRESSION: New intramedullary piper and dynamic hip screw fixation of the right intertrochanteric right hip fracture. The dynamic hip screw appears to breach the cortex of the right femoral head. Assessment/Plan Assessment/Plan (1) HCAP (healthcare-associated pneumonia) Status: Acute Assessment & Plan: -febrile, increased oxygen requirement -CXR with LLL infiltrate -start IV abx for HCAP - Cefepime, Levaquin, Vancomycin -pt will need 24-48 hours IV abx, then can transition to PO if otherwise stable 08/08 -Tmax 99.5 -2L NC with O2 sats 90-93% -Vanc, Levaquin, Cefepime Day 2 -planning take back to OR on Saturday, will complete abx IV to ensure full resolution and best coverage prior to operative procedure by ortho on Saturday 08/11- afebrile, stable, will d/c cefepime and vancomycin, work on titrating supplemental oxygen (2) Hip fracture, right Status: Acute Assessment & Plan: - Managed by Ortho Qualifiers: Qualified Codes: S72.001A - Fracture of unspecified part of neck of right femur, initial encounter for closed fracture (3) CAD (coronary artery disease) Status: Chronic Assessment & Plan: -no cardiac complaints -Cardiology consulted, appreciate recommendations Qualifiers: Qualified Codes: I25.118 - Atherosclerotic heart disease of [place] coronary artery with other forms of angina pectoris (4) Asthma Status: Chronic Assessment & Plan: -awake and alert, stable on 2L NC, able to wean down to 1L at times -continue MAT protocol Qualifiers: Qualified Codes: J45.30 - Mild persistent asthma, uncomplicated (5) HTN (hypertension) Status: Chronic Assessment & Plan: -blood pressure within desired limits Qualifiers: Qualified Codes: I10 - Essential (primary) hypertension (6) Chronic pain Status: Chronic Assessment & Plan: - Patient will likely need increased pain medication after surgery due to tolerance 08/04 -patient feels pain well controlled with current medications at this time 08/05 -pt has required IV fentanyl about every four hours -home dose of pain medication is morphine er 15 mg BID, which is what is currently ordered -will increased to Morphine ER 15 mg TID and oxycodone 5 mg Q2H PRN severe pain and see if pt can wean off IV pain medication -if needed, can consider increasing Morphine ER dose depending on how much additional medication patient needs after frequency increased 08/06 -pt doing well with morphine ER 15 mg TID and oxycodone 5 mg Q2H pRN, has only required 3 doses of PRN medication and none since this morning -will continue with current regimen for now 08/09 had increasing pain and nighttime dose increased -nocturnal pain much better with increased morphine ER to 30 mg at night -will not adjust daytime morphine ER at this time Qualifiers: Qualified Codes: G89.4 - Chronic pain syndrome (7) Tobacco abuse Status: Chronic Assessment & Plan: - Discussed the importance of cessation 08/04 -reinforced that cessation strongly encouraged (8) DVT prophylaxis Status: Acute Assessment & Plan: -lovenox per Ortho -continue SCDs (9) Hyponatremia Status: Resolved (10) Hypomagnesemia Status: Acute Assessment & Plan: 1.6 --> 2.0 08/11 replaced (11) Hypokalemia Status: Resolved Assessment & Plan: 08/10 -3.3 --> replaced with 40 mEq PO 08/11 normal, monitor Clinical Quality Measures DVT/VTE Risk/Contraindication: Risk Factor Score Per Nursin RFS Level Per Nursing on Admit: 4+=Very High ESTHER HODGSON MD Aug 11, 2018 11:05 am
[2018-08-11] MEDS: MAGNESIUM 1 GM/100 ML IVPB 100 ML IV SCH ×2 (11:39→13:34)
[2018-08-11] MEDS: lisINopril 10 MG (PRINIVIL) TABLET PO SCH (11:44)
[2018-08-11 11:46] VITALS: BP 107/58
[2018-08-11] MEDS ORDERED: TROUGH ORDER-PHARMACY XX NR (12:00)
[2018-08-11] MEDS: LEVOFLOXACIN 750 MG/150 ML IV 150 ML IV SCH (14:29)
--- NOTE | 2018-08-11 14:56 | Cardiology Progress Note ---
Cardiology SOAP Progress Note Subjective: No cardiac complaints. Objective: I&O/Vital Signs 08/11/18 08/11/18 08/11/18 08/11/18 06:45 09:20 09:55 10:29 Temp 97.8 Pulse 64 62 Resp 16 B/P (MAP) 116/56 (76) 110/56 (74) Pulse Ox 96 98 O2 Delivery Nasal Cannula Nasal Cannula Nasal Cannula O2 Flow Rate 3.00 3.00 3.00 08/11/18 11:46 Temp 97.4 Pulse 68 Resp 16 B/P (MAP) 107/58 (74) Pulse Ox 94 O2 Delivery Nasal Cannula 08/11/18 00:00 Intake Total 1950 ml Balance 1950 ml Weight (Pounds): 84 Weight (Ounces): 2.0 Weight (Calculated Kilograms): 38.156962 Constitutional: No appears stated age, No AAO x 3, No apparent distress, No PERRL, No well-developed, No well-nourished, No other Respiratory: No accessory muscle use, No respiratory distress, No chest tender , No chest expansion is symmetric; chest is bilaterally symmetric; No lungs clear to percussion; lungs clear to auscultation; No crackles, No rhonchi, No rales, No stridor, No wheezing, No pleural rub, No other Cardiovascular: regular rate-rhythm; No irregularly irregular, No extra beats, No parasternal heave is noted, No JVD, No edema, No bradycardia, No tachycardia , No point of maximal impulse, No cardiac thrills are palpable; S1 and S2; No gallop/S3, No gallop/S4, No diastolic murmur, No systolic murmur, No friction rub, No click, No other Gastrointestional: No tender, No soft, No round, No distended, No pulsatile mass, No organomegaly, No guarding, No rebound, No tenderness, No hernia, No mass, No audible bowel sounds, No abnormal bowel sounds, No abdominal bruits, No spleenomegaly, No other Extremities: No normal range of motion, No non-tender, No normal inspection, No pedal edema, No calf tenderness, No normal capillary refill, No pelvis stable , No calf tenderness, No inflammation, No pedal edema, No slow capillary refill , No swelling, No other, No abrasion, No clubbing, No cyanosis, No ecchymosis, No laceration, No no lower extremity edema bilateral, No significant edema; tenderness; No wound Neurologic/Psychiatric: no motor/sensory deficits, alert, normal mood/affect, oriented x 3 Skin: No normal color, No warm/dry, No cyanosis, No cool, No diaphoresis, No damp, No ecchymosis, No jaundice, No mottled, No pallor, No rash, No tattoos/ piercings, No ulcerations, No rash on exposed areas, No ulcerations on exposed areas, No other Results/Procedures: Labs Laboratory Tests 08/11/18 03:47: Prothrombin Time 13.5, INR Comment 1.0 08/11/18 03:49: White Blood Count 6.1, Red Blood Count 3.05L, Hemoglobin 9.8L, Hematocrit 29L, Mean Corpuscular Volume 95, Mean Corpuscular Hemoglobin 32, Mean Corpuscular Hemoglobin Concent 34, Red Cell Distribution Width 14.0, Platelet Count 314, Mean Platelet Volume 9.8, Neutrophils (%) (Auto) 70, Lymphocytes (%) (Auto) 20, Monocytes (%) (Auto) 9, Eosinophils (%) (Auto) 1, Basophils (%) (Auto) 0, Neutrophils # (Auto) 4.3, Lymphocytes # (Auto) 1.2, Monocytes # (Auto) 0.5, Eosinophils # (Auto) 0.1, Basophils # (Auto) 0.0, Sodium Level 136, Potassium Level 3.6, Chloride Level 102, Carbon Dioxide Level 26, Anion Gap 8, Blood Urea Nitrogen 15, Creatinine 0.52L, Estimat Glomerular Filtration Rate > 60, BUN/ Creatinine Ratio 29, Glucose Level 83, Calcium Level 8.2L, Magnesium Level 1.7L Microbiology 08/03/18 MRSA Screen - Final, Complete MRSA not isolated A/P: Assessment/Dx: Admission Diagnosis Chest pain Coronary artery disease Hypertension Hyperlipidemia Hip fracture Plan: Assessment/Plan Coronary artery disease, history of old myocardial infarction with multiple stents in the past, in 2000 she had proximal and distal circumflex stent 3.013 and 2.513 done in [place]. Had a cardiac catheterization done by Dr. Brooke in November 2017 which showed mild ostial left main coronary artery stenosis, LAD had patent stent with mild diffuse disease, circumflex artery has patent first obtuse marginal artery stent and after the first obtuse marginal branch in the mid circumflex there is a stent which has severe in-stent restenosis and distal to the first stent there is another stent that is occluded, failed attempt to intervention at that time. Patient had moderate diffuse disease in the right coronary artery that was treated medically. Patient had mild apical hypokinesis with ejection fraction 45-50 percent. Recurrent chest pain, treated conservatively for which she takes nitroglycerin sublingual Shortness of breath, history of COPD. Peripheral arterial disease, claudication, peripheral angiogram was done in September 2017 which showed [id number] disease in the distal abdominal aorta, mild to moderate disease diffusely down to the trifurcation with no obstructive disease Hypertension, history of borderline low blood pressure. Monitor blood pressure Hyperlipidemia, maintained on statin Pulmonary hypertension Valvular heart disease with moderate mitral regurgitation, moderate to severe tricuspid regurgitation Tobaccoism, still an active smoker. Right hip surgery postoperative - orthopedics; inpatient rehabilitation is recommended. Thank you for your consultation. Please call me if you have any questions. Luis Brooke MD, FACP, FACC, FSCAI, FHRS, CCDS Interventional Cardiology Cardiac Electrophysiology Vascular Medicine and Endovascular Interventions Aimee BROOKE MD Aug 11, 2018 2:56 pm
[2018-08-11 16:05] VITALS: BP 94/52
[2018-08-11 20:05] VITALS: BP 98/58
[2018-08-11] MEDS: ATORVASTATIN 40 MG (LIPITOR) TABLET PO SCH (20:30)
[2018-08-11] MEDS: morphine ER 30 MG (MS CONTIN) TAB PO SCH (20:30)
[2018-08-12] VITALS: BP 93/53
[2018-08-12] MEDS: ALPRAZolam 1 MG (XANAX) TAB PO PRN (00:47)
[2018-08-12 04:00] VITALS: BP 93/51
[2018-08-12] MEDS: PANTOPRAZOLE 40 MG (PROTONIX) TAB PO SCH (06:04)
[2018-08-12 06:41] LABS: BASOPHILS % (AUTO) 1 % (0-10); EOSINOPHILS # (AUTO) 0.3 10^3/uL (0.0-0.3); EOSINOPHILS % (AUTO) 4 % (0-10); HEMATOCRIT 34 % (35-52); LYMPHOCYTES # (AUTO) 1.7 X 10^3 (1.0-4.0); LYMPHOCYTES % (AUTO) 24 % (12-44); MEAN CORPUSCULAR HEMOGLOBIN 31 PG (25-34); MEAN CORPUSCULAR HGB CONC 32 G/DL (32-36); MEAN CORPUSCULAR VOLUME 97 FL (80-99); MEAN PLATELET VOLUME 9.8 FL (7.4-10.4); MONOCYTES # (AUTO) 0.4 X 10^3 (0.0-1.0); MONOCYTES % (AUTO) 6 % (0-12); NEUTROPHILS # (AUTO) 4.7 X 10^3 (1.8-7.8); NEUTROPHILS % (AUTO) 66 % (42-75); PLATELET COUNT 378 10^3/uL (130-400); RED BLOOD COUNT 3.55 10^6/uL (4.35-5.85); RED CELL DISTRIBUTION WIDTH 14.4 % (10.0-14.5); WHITE BLOOD COUNT 7.1 10^3/uL (4.3-11.0)
[2018-08-12 07:01] LABS: BUN/CREATININE RATIO 21; CALCIUM 8.6 MG/DL (8.5-10.1); CARBON DIOXIDE 25 MMOL/L (21-32); CHLORIDE 101 MMOL/L (98-107); CREATININE SERUM 0.56 MG/DL (0.60-1.30); GFR ESTIMATED > 60; MAGNESIUM 2.1 MG/DL (1.8-2.4); POTASSIUM 3.5 MMOL/L (3.6-5.0); SODIUM 136 MMOL/L (135-145)
[2018-08-12 07:24] LABS: GLUCOSE 47 MG/DL (70-105)
--- NOTE | 2018-08-12 07:30 | Anesthesia-General Post-Op ---
General Patient Condition Mental Status/LOC: Same as Preop Cardiovascular: Satisfactory Nausea/Vomiting: Absent Respiratory: Satisfactory Pain: Controlled Complications: Absent Post Op Complications Complications None Follow Up Care/Instructions Patient Instructions None needed. Anesthesia/Patient Condition Patient Condition Patient is doing well, no complaints, stable vital signs, no apparent adverse anesthesia problems. No complications reported per nursing. [place] [facility] [place]: YURIY Rae CRNA Aug 12, 2018 07:30
[2018-08-12] MEDS: RT-ALBUTEROL/IPRATROPIUM 3 ML (DUONEB) VIAL INH SCH ×3 (07:53→15:11)
[2018-08-12 08:00] VITALS: BP 122/53
--- NOTE | 2018-08-12 08:00 | OPERATIVE REPORT ---
DATE OF SERVICE: 08/11/2018 SURGEON: Desire Hairston DO. PRODUCT BLENDING SUPERVISOR: ELIZABETH Nogueira. This is a medically necessary procedure. Assistance was necessary for retraction of vital neurovascular structures. Without an assistant women's soccer coach, the procedure would not be possible. PREOPERATIVE DIAGNOSIS: Painful internal orthopedic hardware. POSTOPERATIVE DIAGNOSIS: Painful internal orthopedic hardware. PROCEDURE PERFORMED: Revision of right hip intramedullary nail. COMPLICATIONS: None. SPECIMEN SENT: None. DRAIN PLACED: None. ESTIMATED BLOOD LOSS: Minimal. ANESTHESIA: General endotracheal anesthesia with local anesthetic. HISTORY OF PRESENT ILLNESS: The patient is a very sick 68-year-old female, who fell and sustained a displaced hip fracture and underwent intramedullary nailing, that procedure went well with no complications; however, postop imaging did indicate some subsidence of the helical blade component of that nail, which was felt to be violating the chondral surface of the right femoral head and contributing to the patient's severe hip pain. She therefore was agreeable DICTATION ENDS HERE Job ID: [id number] DocumentID: [id number] Dictated Date: 08/12/2018 07:32:39 Demolition Crane Operator Date: 08/12/2018 08:00:41 Dictated By: DESIRE HAIRSTON DO
[2018-08-12] MEDS: ASPIRIN E.C. 81 MG (ECOTRIN) TAB PO SCH (08:15)
[2018-08-12] MEDS: lisINopril 10 MG (PRINIVIL) TABLET PO SCH (08:15)
[2018-08-12] MEDS: DOCUSATE SODIUM 100 MG (COLACE) CAP PO SCH ×2 (08:15→13:10)
[2018-08-12] MEDS: meTOprolol TARTRATE 50 MG (LOPRESSOR) TAB PO SCH (08:15)
[2018-08-12] MEDS: PARoxetine 20 MG (PAXIL) TAB PO SCH (08:15)
[2018-08-12] MEDS: GABAPENTIN 600 MG (NEURONTIN) TAB PO SCH ×2 (08:15→13:10)
[2018-08-12] MEDS: morphine ER 15 MG (MS CONTIN) TAB PO SCH ×2 (08:15→13:10)
--- NOTE | 2018-08-12 11:02 | Physical Therapy Daily Note ---
PT Daily Note-Current Subjective Patient is s/p right hip revision due to failed hardware. Pain Numeric Pain Scale: 5-Moderate Pain Location: Right Location Body Site: Hip Pain Description: Acute Mental Status Patient Orientation: Normal For Age Attachments: Oxygen Transfers Functional [place] Measure 0=Not Assessed/NA 4=Minimal Assistance 1=Total Assistance 5=Supervision or Setup 2=Maximal Assistance 6=Modified [place] 3=Moderate Assistance 7=Complete IndependenceIRFPAI Quality Coding Scale 6 Independent with activity with or without an assistive device 5 Patient requires set up or clean up by helper. Patient completes activity by themselves 4 Supervision or touching assist (CGA). [place] provide cues , steadying assist 3 The helper provides less than half the effort to complete the activity 2 The helper provides more than half the effort to complete the activity 1 Dependent. The helper does all the effort to complete an activity 7 Patient refused to complete or attempt activity 9 The patient did not perform the activity before the current illness or injury 88 Not attempted due to Medical conditions or safety concerns Transfers (B, C, W/C) (FIM): 5 Scootin Rollin Supine to/from Sit: 5 Sit to/from Stand: 5 Weight Bearing Right Lower Extremity: Right Full Weight Bearing Left Lower Extremity: Left Full Weight Bearing Gait Training Gait (FIM): 5 Distance (FIM): 3=150 ft Distance: 225' Gait Level of Assist: 5 Gait Assistive Device: FWW slow, antalgic Assessment Patient demonstrates good balance and cautious mobility due to revision right hip. Patient is WBAT right LE and will dismiss to NH on this date for continued recovery. PT Short Term Goals Short Term Goals Time Frame: Aug 21, 2018 Transfers (B,C,W/C) (FIM): 3 Gait (FIM): 1 Distance (FIM): 1=up to 49 ft Gait Distance Comment: 45' Gait Level of Assist: 3 Gait Assistive Device: FWW PT Shelter Goals Support Teacher Goals PT Shelter Goals Time Frame: Aug 30, 2018 Transfers (B,C,W/C) (FIM): 5 Gait (FIM): 5 Gait distance (FIM): 3=150 ft Distance: 150' Gait Level of Assist: 5 Gait Assistive Device: FWW PT Plan Treatment/Plan Treatment Plan: Discontinue PT, goals met Treatment Plan: Bed Mobility, Education, Functional Activity Wilbert, Functional Strength, Gait, Safety, Therapeutic Exercise, Transfers Treatment Duration: Aug 30, 2018 Frequency: 11 times per week Estimated Hrs Per Day: .5 hour per day Patient and/or Family Agrees t: Yes (family) Time/GCodes Time In: 1030 Time Out: 1044 Total Billed Treatment Time: 14 Total Billed Treatment 1 visit ReEval 14 min NIDA MYLES PT Aug 12, 2018 11:02
[2018-08-12] MEDS ORDERED: LEVO750T39 PO (11:04)
[2018-08-12] MEDS ORDERED: MORP-33 PO (11:04)
--- NOTE | 2018-08-12 11:07 | Discharge Inst-Skilled Nursing ---
Discharge Inst-Skilled NF Patient Instructions Patient Problems: Right hip fracture s/p repair and revision Post-operative pneumonia and hypoxia Consult/Follow Up/Orders Skilled NF Admit to: [facility] Certifications SNF I certify that SNF services are required to be given on an inpatient basis because of the above named patient's need for fpc care on a continuing basis for the conditions(s) for which he/she was receiving inpatient hospital services prior to his/her transfer to the SNF. Residential Facility Order: Nursing Services, Physical Therapy-Evaluate & Treat Discharge Diet: Cardiac Diet Daily Activity as Tolerated: No (Per Ortho recommendations) New & Resume Previous Orders Other Instructions 2 lpm supplemental oxygen to keep SpO2 above 88%, wean as tolerated. Morphine was increased inpatient due to fracture, sending on morphine 15 mg TID , recommend decreasing back to home dose of 15 mg BID in next several days. Discharge Medications New, Converted or Re-Newed RX: RX on Chart New Medications: Levofloxacin (Levofloxacin) 750 Mg Tablet 750 MG PO Q48H@1100, #2 TAB 0 Refills Changed Medications: Morphine Sulfate (Morphine Sulfate ER) 15 Mg Tablet.er 15 MG PO Q8H, #21 TAB 0 Refills (Changed from: Q12H; Refills: ) Continued Medications: Acetaminophen (Tylenol Extra Strength) 500 Mg Tablet 1000 MG PO Q4H PRN for PAIN-MILD, TAB Albuterol Sulfate (Ventolin Hfa) 18 Gm Hfa.aer.ad 2 PUFF INH Q4H PRN for SHORTNESS OF BREATH, INHALER Alprazolam (Alprazolam) 1 Mg Tablet 1 MG PO TID PRN for ANXIETY, TAB Aspirin (Aspirin EC) 325 Mg Tablet.dr 325 MG PO DAILY, TAB Atorvastatin Calcium (Atorvastatin Calcium) 40 Mg Tablet 40 MG PO HS, TAB Clopidogrel Bisulfate (Clopidogrel) 75 Mg Tablet 75 MG PO DAILY, TAB Famotidine (Pepcid) 20 Mg Tablet 20 MG PO BID, #60 TAB Gabapentin (Gabapentin) 600 Mg Tablet 600 MG PO TID, TAB Lisinopril (Lisinopril) 10 Mg Tablet 10 MG PO DAILY, TAB Metoprolol Tartrate (Metoprolol Tartrate) 50 Mg Tablet 50 MG PO BID, TAB Nitroglycerin (Nitroglycerin) 0.4 Mg Tab.subl 0.4 MG SL UD PRN for CHEST PAIN, TAB Pantoprazole Sodium (Protonix) 40 Mg Tablet.dr 40 MG PO DAILY for 30 Days, #30 TAB 6 Refills Paroxetine HCl (Paroxetine HCl) 20 Mg Tablet 20 MG PO DAILY, TAB Potassium Chloride (Potassium Chloride) 10 Meq Tab.er.prt 10 MEQ PO DAILY, #30 EA Esther Redmond Aug 12, 2018 11:04 ESTHER REDMOND MD Aug 12, 2018 11:07
--- NOTE | 2018-08-12 11:14 | Discharge Summary ---
Diagnosis/Chief Complaint Date of Admission Aug 03, 2018 at 1:45 am Date of Discharge Aug 12, 2018 Admission Diagnosis Admission Diagnosis (1) Hip fracture, right Status: Acute Qualifiers: Qualified Codes: S72.001A - Fracture of unspecified part of neck of right femur, initial encounter for closed fracture (2) CAD (coronary artery disease) Status: Chronic Qualifiers: Qualified Codes: I25.118 - Atherosclerotic heart disease of [place] coronary artery with other forms of angina pectoris (3) Asthma Status: Chronic Qualifiers: Qualified Codes: J45.30 - Mild persistent asthma, uncomplicated (4) HTN (hypertension) Status: Chronic Qualifiers: Qualified Codes: I10 - Essential (primary) hypertension (5) Chronic pain Status: Chronic Qualifiers: Qualified Codes: G89.4 - Chronic pain syndrome (6) Tobacco abuse Status: Chronic Discharge Diagnosis HCAP (healthcare-associated pneumonia) Status: Acute Assessment & Plan: -febrile, increased oxygen requirement -CXR with LLL infiltrate -start IV abx for HCAP - Cefepime, Levaquin, Vancomycin 08/08 -Tmax 99.5 -2L NC with O2 sats 90-93% -Vanc, Levaquin, Cefepime Day 2 -planning take back to OR on Saturday, will complete abx IV to ensure full resolution and best coverage prior to operative procedure by ortho on Sunday 08/12- afebrile, stable, continue levofloxacin for 2 more days to complete 7 day course, required supplemental oxygen at d/c, orders written for 2 lpm, wean as tolerated. Hip fracture, right Status: Acute Assessment & Plan: - Managed by Ortho, repaired and then revision of screw placement done on 08/11, discharged to SNF for further therapy Qualifiers: Qualified Codes: S72.001A - Fracture of unspecified part of neck of right femur, initial encounter for closed fracture CAD (coronary artery disease) Status: Chronic Assessment & Plan: -no cardiac complaints -Cardiology consulted, appreciate recommendations Qualifiers: Qualified Codes: I25.118 - Atherosclerotic heart disease of [place] coronary artery with other forms of angina pectoris Asthma Status: Chronic Assessment & Plan: -awake and alert, stable on 2L NC, able to wean down to 1L at times - MAT protocol Qualifiers: Qualified Codes: J45.30 - Mild persistent asthma, uncomplicated HTN (hypertension) Status: Chronic Assessment & Plan: -blood pressure within desired limits Qualifiers: Qualified Codes: I10 - Essential (primary) hypertension Chronic pain Status: Chronic Assessment & Plan: - Patient needed increased pain medication after surgery due to tolerance 08/05 -pt has required IV fentanyl about every four hours -home dose of pain medication is morphine er 15 mg BID, which is what is currently ordered -will increased to Morphine ER 15 mg TID and oxycodone 5 mg Q2H PRN severe pain and see if pt can wean off IV pain medication -if needed, can consider increasing Morphine ER dose depending on how much additional medication patient needs after frequency increased 08/06 -pt doing well with morphine ER 15 mg TID and oxycodone 5 mg Q2H pRN, has only required 3 doses of PRN medication and none since this morning -will continue with current regimen for now 08/09 had increasing pain and nighttime dose increased -nocturnal pain much better with increased morphine ER to 30 mg at night -will not adjust daytime morphine ER at this time 08/12 at d/c decreased morphine ER back to 15 mg TID, recommend decreasing back to prior dose of 15 mg BID in next week. Qualifiers: Qualified Codes: G89.4 - Chronic pain syndrome Tobacco abuse Status: Chronic Assessment & Plan: - Discussed the importance of cessation 08/04 -reinforced that cessation strongly encouraged Hyponatremia Status: Resolved Hypomagnesemia Status: Acute Assessment & Plan: 1.6 --> 2.0 08/11 replaced Hypokalemia Status: Resolved Assessment & Plan: 08/10 -3.3 --> replaced with 40 mEq PO 08/11 normal, monitor Chief Complaint/HPI Chief Complaint/HPI Medical Consult for Ortho Service Patient has h/o COPD and tobacco use. States that she uses albuterol PRN. She has been a smoker for 40+ yrs. No recent PNA or lung infections CAD: Patient has had stents placed in the past. Extensive CAD. Recent Cath in Nov 2017. PVD: LE cath has been completed HTN: Controlled per patient on medications. HLD: On Statin Osteoarthritis Discharge Summary-Simple/Stand Consultations Discharge Physical Examination Allergies: Coded Allergies: acetaminophen (Verified Allergy, Unknown, 01/16/16) diphenhydramine (Verified Allergy, Unknown, 08/03/18) oxymorphone (Verified Allergy, Unknown, 08/03/18) varenicline (Verified Allergy, Unknown, 08/03/18) Vitals & I&Os Vital Sign - Last 12Hours Date Time Temp Pulse Resp B/P (MAP) Pulse Ox O2 Delivery O2 Flow Rate FiO2 08/12/18 10:58 93 Nasal Cannula 2.00 08/12/18 08:00 97.3 67 20 122/53 (76) 08/09/18 07:44 28 Intake and Output 08/12/18 00:00 Intake Total 1790 ml Balance 1790 ml General Appearance: Alert, No Acute Distress Respiratory: Clear to Auscultation, Normal Air Movement Cardiovascular: Regular Rate, No Murmurs Neuro: Normal Speech Psych/Mental Status: Mood NL Hospital Course See final discharge diagnosis. Labs Laboratory Tests Test 08/11/18 03:47 08/11/18 03:49 08/12/18 05:40 08/12/18 07:40 Range/Units Prothrombin Time 13.5 12.2-14.7 SEC INR Comment 1.0 0.8-1.4 White Blood Count 6.1 7.1 4.3-11.0 10^3/uL Red Blood Count 3.05 L 3.55 L 4.35-5.85 10^6/uL Hemoglobin 9.8 L 11.0 L 11.5-16.0 G/DL Hematocrit 29 L 34 L 35-52 % Mean Corpuscular Volume 95 97 80-99 FL Mean Corpuscular Hemoglobin 32 31 25-34 PG Mean Corpuscular Hemoglobin Concent 34 32 32-36 G/DL Red Cell Distribution Width 14.0 14.4 10.0-14.5 % Platelet Count 314 378 130-400 10^3/uL Mean Platelet Volume 9.8 9.8 7.4-10.4 FL Neutrophils (%) (Auto) 70 66 42-75 % Lymphocytes (%) (Auto) 20 24 12-44 % Monocytes (%) (Auto) 9 6 0-12 % Eosinophils (%) (Auto) 1 4 0-10 % Basophils (%) (Auto) 0 1 0-10 % Neutrophils # (Auto) 4.3 4.7 1.8-7.8 X 10^3 Lymphocytes # (Auto) 1.2 1.7 1.0-4.0 X 10^3 Monocytes # (Auto) 0.5 0.4 0.0-1.0 X 10^3 Eosinophils # (Auto) 0.1 0.3 0.0-0.3 10^3/uL Basophils # (Auto) 0.0 0.0 0.0-0.1 10^3/uL Sodium Level 136 136 135-145 MMOL/L Potassium Level 3.6 3.5 L 3.6-5.0 MMOL/L Chloride Level 102 101 98-107 MMOL/L Carbon Dioxide Level 26 25 21-32 MMOL/L Anion Gap 8 10 5-14 MMOL/L Blood Urea Nitrogen 15 12 7-18 MG/DL Creatinine 0.52 L 0.56 L 0.60-1.30 MG/DL Estimat Glomerular Filtration Rate > 60 > 60 BUN/Creatinine Ratio 29 21 Glucose Level 83 47 *L 70-105 MG/DL Calcium Level 8.2 L 8.6 8.5-10.1 MG/DL Magnesium Level 1.7 L 2.1 1.8-2.4 MG/DL Glucometer 71 70-110 MG/DL Radiology Reviewed Date of Exam: 08/05/18 HIP, RIGHT, 2 VIEWS EXAM: HIP, RIGHT, 2 VIEWS INDICATION: Right hip fracture. COMPARISON: Pelvis radiograph 08/03/2018. FINDINGS: New intramedullary piper and dynamic hip screw fixation of the right hip. Hardware components appear intact. The hip screw appears to breach the cortex of the right femoral head. Soft tissue shadows are unremarkable. IMPRESSION: New intramedullary piper and dynamic hip screw fixation of the right intertrochanteric right hip fracture. The dynamic hip screw appears to breach the cortex of the right femoral head. Discharge Instructions to patient/family Please see electronic discharge instructions given to patient. Discharge Medications Reviewed and agree with Discharge Medication list on patient's Discharge Instruction sheet Clinical Quality Measures DVT/VTE Risk/Contraindication: Risk Factor Score Per Nursin RFS Level Per Nursing on Admit: 4+=Very High Copy Copies To 1: CEASAR SNYDER MD, BETHANY N MD Aug 12, 2018 11:14 am
[2018-08-12 12:00] VITALS: BP 98/78
--- NOTE | 2018-08-12 13:46 | OPERATIVE REPORT ---
DATE OF SERVICE: 08/11/2018 SURGEON: Desire Hairston DO CAVING GUIDE: ELIZABETH This is a medically necessary procedure. Assistance is necessary for retraction of vital neurovascular structures. Without an litigation assistant, the procedure would not be possible. PREOPERATIVE DIAGNOSIS: Painful internal hardware. POSTOPERATIVE DIAGNOSIS: Painful internal hardware. PROCEDURE PERFORMED: Revision of right hip intramedullary nail. COMPLICATIONS: None. SPECIMEN SENT: None. ANESTHESIA: General endotracheal tube anesthesia. ESTIMATED BLOOD LOSS: Minimal. HISTORY OF PRESENT ILLNESS: The patient is a 68-year-old female, who underwent right hip intramedullary nail. Postop imaging demonstrated subsidence of the helical blade causing her severe pain. She wished to have this revised. DESCRIPTION OF PROCEDURE: The patient was identified by name on wrist band in the preoperative holding area. Her operative site was signed, consent was signed. SCDs were placed. Antibiotics were started. She was taken to the operating room theater and placed under general endotracheal tube anesthesia and transferred to the operating room table in supine position. Traction was placed across the right lower extremity, which was then adducted to give us access to the proximal femur. She was prepped and draped in the usual sterile fashion. A formal timeout was conducted. The proximal and distal incision was then reopened. I then backed out the locking screw from the cranial incision. At this point, we gained access to the helical blade from the lateral incision. We used a [employer] tool to reverse thread into that helical blade and then used a slap hammer to back out the helical blade approximately a centimeter. I was happy with the position of the helical blade. We advanced the locking screw and locked it into place. At this point, irrigated the wound, maintained hemostasis, closed the wounds and then closed the skin with sally. Applied dressings. Took the patient in the supine position to the PACU where she awoke without incident. PLAN: At this time is to have the patient weightbear as tolerated. I will have her discharged as soon as that is okay with medicine. We will see her back in 2 weeks. Job ID: [id number] DocumentID: [id number] Dictated Date: 08/12/2018 09:21:50 Hand Nailer Date: 08/12/2018 13:46:11 Dictated By: DESIRE HAIRSTON DO
--- NOTE | 2018-08-12 13:55 | Cardiology Progress Note ---
Cardiology SOAP Progress Note Subjective: No cardiac symptoms. Objective: I&O/Vital Signs 08/12/18 08/12/18 08/12/18 08/12/18 04:00 07:53 08:00 08:00 Temp 98.2 97.3 Pulse 55 67 Resp 16 20 B/P (MAP) 93/51 (65) 122/53 (76) Pulse Ox 92 97 97 O2 Delivery Nasal Cannula Nasal Cannula Room Air Room Air O2 Flow Rate 2.00 2.00 2.00 08/12/18 08/12/18 10:58 12:00 Temp 99.3 Pulse 70 Resp 20 B/P (MAP) 98/78 (85) Pulse Ox 93 92 O2 Delivery Nasal Cannula Nasal Cannula O2 Flow Rate 2.00 2.00 08/12/18 00:00 Intake Total 1790 ml Balance 1790 ml Weight (Pounds): 84 Weight (Ounces): 2.0 Weight (Calculated Kilograms): [id number] Constitutional: No appears stated age, No AAO x 3, No apparent distress, No PERRL, No well-developed, No well-nourished, No other Respiratory: No accessory muscle use, No respiratory distress, No chest tender , No chest expansion is symmetric; chest is bilaterally symmetric; No lungs clear to percussion; lungs clear to auscultation; No crackles, No rhonchi, No rales, No stridor, No wheezing, No pleural rub, No other Cardiovascular: regular rate-rhythm; No irregularly irregular, No extra beats, No parasternal heave is noted, No JVD, No edema, No bradycardia, No tachycardia , No point of maximal impulse, No cardiac thrills are palpable; S1 and S2; No gallop/S3, No gallop/S4, No diastolic murmur, No systolic murmur, No friction rub, No click, No other Gastrointestional: No tender, No soft, No round, No distended, No pulsatile mass, No organomegaly, No guarding, No rebound, No tenderness, No hernia, No mass, No audible bowel sounds, No abnormal bowel sounds, No abdominal bruits, No spleenomegaly, No other Extremities: No normal range of motion, No non-tender, No normal inspection, No pedal edema, No calf tenderness, No normal capillary refill, No pelvis stable , No calf tenderness, No inflammation, No pedal edema, No slow capillary refill , No swelling, No other, No abrasion, No clubbing, No cyanosis, No ecchymosis, No laceration, No no lower extremity edema bilateral, No significant edema; tenderness; No wound Neurologic/Psychiatric: no motor/sensory deficits, alert, normal mood/affect, oriented x 3 Skin: No normal color, No warm/dry, No cyanosis, No cool, No diaphoresis, No damp, No ecchymosis, No jaundice, No mottled, No pallor, No rash, No tattoos/ piercings, No ulcerations, No rash on exposed areas, No ulcerations on exposed areas, No other Results/Procedures: Labs Laboratory Tests 08/12/18 05:40: White Blood Count 7.1, Red Blood Count 3.55L, Hemoglobin 11.0L, Hematocrit 34L, Mean Corpuscular Volume 97, Mean Corpuscular Hemoglobin 31, Mean Corpuscular Hemoglobin Concent 32, Red Cell Distribution Width 14.4, Platelet Count 378, Mean Platelet Volume 9.8, Neutrophils (%) (Auto) 66, Lymphocytes (%) (Auto) 24, Monocytes (%) (Auto) 6, Eosinophils (%) (Auto) 4, Basophils (%) (Auto) 1, Neutrophils # (Auto) 4.7, Lymphocytes # (Auto) 1.7, Monocytes # (Auto) 0.4, Eosinophils # (Auto) 0.3, Basophils # (Auto) 0.0, Sodium Level 136, Potassium Level 3.5L, Chloride Level 101, Carbon Dioxide Level 25, Anion Gap 10, Blood Urea Nitrogen 12, Creatinine 0.56L, Estimat Glomerular Filtration Rate > 60, BUN /Creatinine Ratio 21, Glucose Level 47*L, Calcium Level 8.6, Magnesium Level 2.1 08/12/18 07:40: Glucometer 71 Microbiology 08/03/18 MRSA Screen - Final, Complete MRSA not isolated A/P: Assessment/Dx: Admission Diagnosis Chest pain Coronary artery disease Hypertension Hyperlipidemia Hip fracture Plan: Assessment/Plan Coronary artery disease, history of old myocardial infarction with multiple stents in the past, in 2000 she had proximal and distal circumflex stent 3.013 and 2.513 done in [place]. Had a cardiac catheterization done by Dr. Brooke in November 2017 which showed mild ostial left main coronary artery stenosis, LAD had patent stent with mild diffuse disease, circumflex artery has patent first obtuse marginal artery stent and after the first obtuse marginal branch in the mid circumflex there is a stent which has severe in-stent restenosis and distal to the first stent there is another stent that is occluded, failed attempt to intervention at that time. Patient had moderate diffuse disease in the right coronary artery that was treated medically. Patient had mild apical hypokinesis with ejection fraction 45-50 percent. Recurrent chest pain, treated conservatively for which she takes nitroglycerin sublingual Shortness of breath, history of COPD. Peripheral arterial disease, claudication, peripheral angiogram was done in September 2017 which showed [id number] disease in the distal abdominal aorta, mild to moderate disease diffusely down to the trifurcation with no obstructive disease Hypertension, history of borderline low blood pressure. Monitor blood pressure Hyperlipidemia, maintained on statin Pulmonary hypertension Valvular heart disease with moderate mitral regurgitation, moderate to severe tricuspid regurgitation Tobaccoism, still an active smoker. Right hip surgery postoperative - orthopedics; inpatient rehabilitation is recommended. Thank you for your consultation. Please call me if you have any questions. Luis Brooke MD, FACP, FACC, FSCAI, FHRS, CCDS Interventional Cardiology Cardiac Electrophysiology Vascular Medicine and Endovascular Interventions Aimee BROOKE MD Aug 12, 2018 1:55 pm
[2018-08-12] MEDS ORDERED: ceFAZolin INJECTION 1,000 MG in NS (IVPB) 50 ML IV SCH (14:00)
--- NOTE | 2018-08-12 15:20 | Occupational Ther Daily Note ---
OT Current Status-Daily Note Subjective Pt sitting in chair, agrees to treatment. Pt reports 8/10 pain in right hip. Mental Status/Objective Functional [place] Measure 0=Not Assessed/NA 4=Minimal Assistance 1=Total Assistance 5=Supervision or Setup 2=Maximal Assistance 6=Modified [place] 3=Moderate Assistance 7=Complete [place] ADL-Treatment Pt sit to stand with supervision. Gait to restroom with FWW, slow pace. Transfer to toilet with CGA. Pt able to complete toileting hygiene without assistance. Requires CGA for standing balance during clothing management. Pt requests to ambulate in room to "loosen up". Pt performed gait to door and back to chair with FWW with slow pace, but no LOB noted. Pt sitting in chair with needs met after session. Pt may d/c to SNF today. Toileting (FIM): 4 (CGA) Toilet/Commode Transfer (FIM): 4 (CGA) OT Short Term Goals Short Term Goals Transfers (B,C,W/C) (FIM): 3 1=Demonstrate adherence to instructed precautions during ADL tasks. 2=Patient will verbalize/demonstrate understanding of assistive devices/ modifications for ADL. 3=Patient will improve strength/tolerance for activity to enable patient to perform ADL's. OT Mining Support Worker Goals Prison Goals Time Frame: Aug 26, 2018 Eating (FIM): 6 Grooming(FIM): 6 Bathing(FIM): 5 Upper Body Dressing(FIM): 6 Lower Body Dressing(FIM): 5 Toileting(FIM): 6 Toilet/Commode Transfer(FIM): 6 Shower Transfer(FIM): 5 Additional Goals: 1-Demonstrate ADL Tasks, 2-Verbalize Understanding, 3- ImproveStrength/[place] 1=Demonstrate adherence to instructed precautions during ADL tasks. 2=Patient will verbalize/demonstrate understanding of assistive devices/ modifications for ADL. 3=Patient will improve strength/tolerance for activity to enable patient to perform ADL's. OT Education/Plan Problem List/Assessment Pt had right hip hardware revision yesterday. Continue same goals per plan of care. Discharge Recommendations Plan/Recommendations: Continue POC Treatment Plan/Plan of Care Patient would benefit from OT for education, treatment and training to promote independence in ADL's, mobility, safety and/or upper extremity function for ADL' s. Plan of Care: ADL Retraining, Functional Mobility, UE Funct Exercise/Act Treatment Duration: Aug 26, 2018 Frequency: 5 times per week Estimated Hrs Per Day: .25 hour per day Rehab Potential: Good Time/GCodes Start Time: 14:12 Stop Time: 14:23 Total Time Billed (hr/min): 11 Billed Treatment Time 1 visit, ADL(11minutes) SCOTT WHITE OT Aug 12, 2018 15:20
[2018-08-13] MEDS ORDERED: LEVOFLOXACIN 750 MG TAB (LEVAQUIN) PO SCH (11:00)
== END 2018-08-12 15:55 | DRG 480 ==
LOC: EDUNIT# 00:07 → ER 00:09 → 4TH 01:45 → ICU 16:05 → 4TH 08-05 20:50
PROVIDERS: ADMIT Orthopaedic Surgery; ATTEND Internal Medicine
PROC: 0QS636Z Reposition Right Upper Femur with Intramedullary Internal Fixation Device, Percutaneous Approach (ICD-10-PCS; principal; 2018-08-03 14:06)
PROC: 0QW604Z Revision of Internal Fixation Device in Right Upper Femur, Open Approach (ICD-10-PCS; 2018-08-11)
DX: S72.141A Displaced intertrochanteric fracture of right femur, initial encounter for closed fracture (principal); J18.9 Pneumonia, unspecified organism; J44.0 Chronic obstructive pulmonary disease with (acute) lower respiratory infection; T84.84XA Pain due to internal orthopedic prosthetic devices, implants and grafts, initial encounter; E87.1 Hypo-osmolality and hyponatremia; I25.118 Atherosclerotic heart disease of native coronary artery with other forms of angina pectoris; K50.90 Crohn's disease, unspecified, without complications; J45.30 Mild persistent asthma, uncomplicated; I10 Essential (primary) hypertension; F17.210 Nicotine dependence, cigarettes, uncomplicated; K21.9 Gastro-esophageal reflux disease without esophagitis; F51.3 Sleepwalking [somnambulism]; G25.81 Restless legs syndrome; E78.5 Hyperlipidemia, unspecified; G89.4 Chronic pain syndrome; I73.9 Peripheral vascular disease, unspecified; I70.0 Atherosclerosis of aorta; I08.1 Rheumatic disorders of both mitral and tricuspid valves; M19.91 Primary osteoarthritis, unspecified site; F41.0 Panic disorder [episodic paroxysmal anxiety]; F43.10 Post-traumatic stress disorder, unspecified; F31.9 Bipolar disorder, unspecified; E83.51 Hypocalcemia; E83.42 Hypomagnesemia; E83.41 Hypermagnesemia; E87.5 Hyperkalemia; I25.2 Old myocardial infarction; W18.00XA Striking against unspecified object with subsequent fall, initial encounter; Y92.013 Bedroom of single-family (private) house as the place of occurrence of the external cause; Z95.5 Presence of coronary angioplasty implant and graft
CPT/HCPCS: 36415; 70450; 71045; 72125; 72170; 73502; 73552; 73590; 80048; 80053; 80202; 80306; 80320; 81000; 82962; 83735; 84443; 85007; 85025; 85027; 85610; 85730; 86141; 86850; 86900; 86901; 87081; 93005; 93041; 94640; 94664; 94760; 96374

== ENCOUNTER 2018-11-18 06:57 | Emergency (ER) | payer MEDICARE ==
[~2018-11-18] VITALS: Ht 157.5 cm; Wt 45.4 kg
[~2018-11-18 06:57] MED LIST changes: +LEVO750T39 PO
[2018-11-18] MEDS ORDERED: SUCCINYLCHOLINE INJ 100 MG/5 ML SYR INJ ONE ×3 (06:59→08:30)
[2018-11-18] MEDS ORDERED: ETOMIDATE IV SOLN 20 MG/10 ML VIAL IV ONE ×3 (06:59→08:30)
[2018-11-18] MEDS ORDERED: MIDAZOLAM 5 MG/5 ML (VERSED) VIAL IJ ONE (06:59)
[2018-11-18] MEDS ORDERED: NS IV 500 ML 500 ML IV ONE (07:03)
[2018-11-18] MEDS ORDERED: LIDOCAINE/EPI 2% 1:100,00 (XYLOCAINE) 20 ML VIAL ONE (07:05)
[2018-11-18] MEDS ORDERED: TETANUS,DIPTH,PERTUSS P/F (BOOSTRIX) 0.5 ML VIAL IM ONE (07:15)
[2018-11-18] MEDS ORDERED: LIDOCAINE/EPI 2% 1:100,00 (XYLOCAINE) 20 ML VIAL INJ ONE (07:15)
--- NOTE | 2018-11-18 07:26 | ED Fall/Injury ---
General Chief Complaint: Trauma-Non Activation Stated Complaint: FALL Nursing Triage Note: ARRIVED VIA EMS FROM HOME. REPORT IS PT HAD TAKEN A SHOWER THIS AM AND WAS ACTING FINE ET FRIEND FOUND HER ON THE FLOOR CONFUSED ET SLURRING HER WORDS. PT DOES NOT REMEMBER THE ACCIDENT BUT STATES SHE THINKS SHE WAS GETTING READY TO GO TO THE BATHROOM. PT ARRIVED WITH A LAC ABOVE THE LEFT EYE. SLIGHTLY CONFUSED ET TWITCHING. PT ARRIVED WITH A C-COLLAR ON. Source: patient, EMS Exam Limitations: clinical condition History of Present Illness Date Seen by Provider: Nov 18, 2018 Time Seen by Provider: 06:54 Initial Comments Patient presents to ER by EMS with chief complaint she was found by family in her home after getting up sometime this morning to go the bathroom shower. Unknown time of fall. Positive loss of consciousness. She was struck on the left forehead and has a small 1-2 cm laceration. She is on Plavix. Patient is alert and oriented 1. Blood sugar was 99. Patient is alert and asking some questions and states she does not have any significant pain anywhere except for her for head. Allergies and Home Medications Allergies Coded Allergies: acetaminophen (Verified Allergy, Unknown, 01/16/16) diphenhydramine (Verified Allergy, Unknown, 08/03/18) oxymorphone (Verified Allergy, Unknown, 08/03/18) varenicline (Verified Allergy, Unknown, 08/03/18) Home Medications Acetaminophen 500 Mg Tablet, 1,000 MG PO Q4H PRN for PAIN-MILD, (Reported) Albuterol Sulfate 18 Gm Hfa.aer.ad, 2 PUFF INH Q4H PRN for SHORTNESS OF BREATH, (Reported) Alprazolam 1 Mg Tablet, 1 MG PO TID PRN for ANXIETY, (Reported) Aspirin 325 Mg Tablet.dr, 325 MG PO DAILY, (Reported) Atorvastatin Calcium 40 Mg Tablet, 40 MG PO HS, (Reported) Clopidogrel Bisulfate 75 Mg Tablet, 75 MG PO DAILY, (Reported) Famotidine 20 Mg Tablet, 20 MG PO BID Prescribed by: SINDY GALE on 05/26/18 1448 Gabapentin 600 Mg Tablet, 600 MG PO TID, (Reported) Levofloxacin 750 Mg Tablet, 750 MG PO Q48H@1100 Prescribed by: ESTHER HODGSON on 08/12/18 1104 Lisinopril 10 Mg Tablet, 10 MG PO DAILY, (Reported) Metoprolol Tartrate 50 Mg Tablet, 50 MG PO BID, (Reported) Morphine Sulfate 15 Mg Tablet.er, 15 MG PO Q8H Prescribed by: ESTHER HODGSON on 08/12/18 1104 Nitroglycerin 0.4 Mg Tab.subl, 0.4 MG SL UD PRN for CHEST PAIN, (Reported) Pantoprazole Sodium 40 Mg Tablet.dr, 40 MG PO DAILY Prescribed by: SAI COOK on 06/02/18 1145 Paroxetine HCl 20 Mg Tablet, 20 MG PO DAILY, (Reported) Potassium Chloride 10 Meq Tab.er.prt, 10 MEQ PO DAILY Prescribed by: SINDY GALE on 05/26/18 1448 Patient Home Medication List Home Medication List Reviewed: Yes Review of Systems Review of Systems Constitutional: No chills, No diaphoresis Eyes: Denies Blindness, Denies Blurred Vision, Denies Drainage Ears, Nose, Mouth, Throat: denies ear pain, denies ear discharge Respiratory: No cough, No short of breath Cardiovascular: No chest pain, No edema Gastrointestinal: No abdominal pain, No nausea Genitourinary: No discharge, No dysuria Past Jzkmknm-Wstryv-Ynwcpo Hx Patient Social History Alcohol Use: Denies Use Recreational Drug Use: No Smoking Status: Current Everyday Smoker Type Used: Cigars, Cigarettes Recent Foreign Travel: No Contact w/Someone Who Travel: No Recent Infectious Disease Expo: No Recent Hopitalizations: No Immunizations Up To Date Tetanus Booster (TDap): Unknown Date of Pneumonia Vaccine: Jul 05, 2017 Date of Influenza Vaccine: Jul 05, 2018 Seasonal Allergies Seasonal Allergies: No Past Medical History Surgeries: Yes (CARDIAC CATH--STENTS X 2 ) Cardiac, Coronary Stent, Hysterectomy Respiratory: Yes (SMOKED 1/2 PPD SINCE AGE 9) Asthma, COPD Currently Using CPAP: No Currently Using BIPAP: No Cardiac: Yes (STENTS X 2, PER PT) Coronary Artery Disease, Heart Attack, Hypertension Neurological: Yes (sleepwalking; NUEROPATHY IN LEGS AND HANDS, PER PT) Neuropathy Reproductive Disorders: No Female Reproductive Disorders: Denies Sexually Transmitted Disease: No HIV/AIDS: No Genitourinary: No Gastrointestinal: Yes Colitis, Gastroesophageal Reflux, Crohns Disease Musculoskeletal: Yes (RESTLESS LEGS,CHRONIC NECK AND BACK PAIN; FREQUENT FALLS) Arthritis, Chronic Back Pain Endocrine: No HEENT: Yes (STATED SHE HAS TROUBLE SEEING THE MENU) Loss of Vision: Right Hearing Impairment: Denies Cancer: Yes Skin, Ovarian Did You Recieve Any Treatments: Yes What Type of Treatment Did You: Surgical Intervention Psychosocial: Yes (PANIC ATTACKS, night terrors) Sleep Difficulties, Anxiety, PTSD, Bipolar, Depression Integumentary: Yes ("SKIN CANCER SPOTS") Blood Disorders: No (aplastic anemia) Family Medical History Psychosocial problem G8 SISTER Physical Exam Vital Signs Vital Signs - First Documented 11/18/18 11/18/18 06:57 09:00 Temp 98.0 Pulse 80 Resp 16 B/P (MAP) 150/78 (102) Pulse Ox 92 O2 Delivery Room Air FiO2 50 Capillary Refill : Less Than 3 Seconds Height, Weight, BMI Height: 5'2.00" Weight: 100lbs. 2.0oz. 45.728720bc; 19.8 BMI Method:Stated General Appearance: other (disheveled, thin) HEENT: PERRL/EOMI, TMs normal (right TM mild injection but no hemotympanum), other (large hematoma with ecchymoses above below and around the left eye socket. Pupils bilaterally 8 mm reactive round to light and accommodation with completely intact EOMI. no scleral hemorrhage) Neck: non-tender, full range of motion, other (c-collar in place) Cardiovascular: normal peripheral pulses, regular rate, rhythm, no edema Respiratory: chest non-tender, lungs clear, normal breath sounds, no respiratory distress, no accessory muscle use Gastrointestinal: normal bowel sounds, non tender, soft Extremities: normal range of motion, non-tender, normal inspection, no pedal edema, normal capillary refill Neurologic/Psychiatric: alert, normal mood/affect, oriented x 3 Skin: normal color, warm/dry, ecchymosis (ecchymoses and hematoma above and around the left eye with a 2; laceration) Ghulam Coma Score Best Eye Response: (3) Open to Voice Best Verbal Response: (4) Confused Conversation Best Motor Response: (6) Obeys Commands Ghulam Total: 12 Procedures/Interventions Reason for Intubation: hypoxia, hypercapnia, GCS of 5 Date of ETT Placement: Nov 18, 2018 Time of ETT Placement: 07:55 Intubation Method: orotracheal Tube Size: 7.5 Medications: Etomidate (20 mg), Succinylcholine (20 mg) Positive End Tide CO2: Yes Breath Sounds after Intubation: bilateral-equal Intubation Complications: no complications (attempts time 1) Post Intubation Xray: Yes distal ETT 2- centimeters above cindy Using a 3 Sameer and [id number] we've hyper oxygenated the patient to 99 % and placed a 7.5 ET tube across the vocal cords. We could see the bottom quarter of the vocal cords but we watched to go across them and inflated the cuff at 23 cm at the lip. The patient's breast fogged tube and change the color on the capnography paper as well as she had good bilateral breath sounds and no air sounds over the epigastric region. Her oxygen sats did not go below 95%. Progress/Results/Core Measures Results/Orders Lab Results Laboratory Tests Test 11/18/18 07:15 11/18/18 07:55 11/18/18 08:30 11/18/18 09:54 Range/Units White Blood Count 14.6 H 4.3-11.0 10^3/uL Red Blood Count 4.97 4.35-5.85 10^6/uL Hemoglobin 14.6 11.5-16.0 G/DL Hematocrit 44 35-52 % Mean Corpuscular Volume 89 80-99 FL Mean Corpuscular Hemoglobin 29 25-34 PG Mean Corpuscular Hemoglobin Concent 33 32-36 G/DL Red Cell Distribution Width 15.7 H 10.0-14.5 % Platelet Count 211 130-400 10^3/uL Mean Platelet Volume 9.6 7.4-10.4 FL Sodium Level 132 L 135-145 MMOL/L Potassium Level 3.5 L 3.6-5.0 MMOL/L Chloride Level 98 98-107 MMOL/L Carbon Dioxide Level 22 21-32 MMOL/L Anion Gap 12 5-14 MMOL/L Blood Urea Nitrogen 12 7-18 MG/DL Creatinine 0.71 0.60-1.30 MG/DL Estimat Glomerular Filtration Rate > 60 BUN/Creatinine Ratio 17 Glucose Level 140 H 70-105 MG/DL Calcium Level 8.4 L 8.5-10.1 MG/DL Total Bilirubin 0.3 0.1-1.0 MG/DL Direct Bilirubin 0.2 0.0-0.3 MG/DL Indirect Bilirubin 0.1 MG/DL Aspartate Amino Transf (AST/SGOT) 21 5-34 U/L Alanine Aminotransferase (ALT/SGPT) 12 0-55 U/L Alkaline Phosphatase 86 40-136 U/L Total Creatine Kinase 163 29-168 U/L Total Protein 6.8 6.4-8.2 GM/DL Albumin 3.7 3.2-4.5 GM/DL Serum Alcohol < 10 <10 MG/DL Urine Color MEAGHAN H Urine Clarity SLIGHTLY CLOUDY Urine pH 5 5-9 Urine Specific [place] 1.030 H 1.016-1.022 Urine Protein 3+ H NEGATIVE Urine Glucose (UA) NEGATIVE NEGATIVE Urine Ketones NEGATIVE NEGATIVE Urine Nitrite NEGATIVE NEGATIVE Urine Bilirubin NEGATIVE NEGATIVE Urine Urobilinogen 1 NORMAL MG/DL Urine Leukocyte Esterase 1+ H NEGATIVE Urine RBC (Auto) 5+ H NEGATIVE Urine RBC 10-25 H /HPF Urine WBC 0-2 /HPF Urine Squamous Epithelial Cells TNTC H /HPF Urine Crystals NONE /LPF Urine Bacteria FEW H /HPF Urine Casts NONE /LPF Urine Mucus NEGATIVE /LPF Urine Culture Indicated NO Blood Gas Puncture Site LEFT RADIAL LEFT RADIAL Blood Gas Patient Temperature 98.0 98 Arterial Blood pH 7.25 *L 7.36 L 7.37-7.43 Arterial Blood Partial Pressure CO2 61 H 48 H 35-45 MMHG Arterial Blood Partial Pressure O2 398 H 197 H 79-93 MMHG Arterial Blood HCO3 26 27 23-27 MMOL/L Arterial Blood Total CO2 28.1 28.5 21.0-31.0 MMOL/L Arterial Blood Oxygen Saturation 100 100 94-100 % Arterial Blood Base Excess -0.2 2.0 -2.5-2.5 MMOL/L Jc Test POSITIVE POSITIVE Blood Gas Ventilator Setting YES YES Blood Gas Inspired Oxygen 100 40% My Orders Orders - ANA CRISTINA PATEL Cbc No Diff (11/18/18 07:03) Basic Metabolic Panel (11/18/18 07:03) Liver Panel (11/18/18 07:03) Alcohol (11/18/18 07:03) Ua Culture If Indicated (11/18/18 07:03) Type And Screen (11/18/18 07:03) Chest 1 View, Ap/Pa Only (11/18/18 07:03) Ekg Tracing (11/18/18 07:03) End Tidal Co2 (11/18/18 07:03) Monitor-Rhythm Ecg Trace Only (11/18/18 07:03) Saline Lock/Iv-Start (11/18/18 07:03) Saline Lock/Iv-Start (11/18/18 07:03) Ns Iv 500 Ml (Sodium Chloride 0.9%) (11/18/18 07:03) Lidocaine/Epi 2% 1:100,000 (Xylocaine/Ep (11/18/18 07:15) Ct Head/Face/Cervical Wo (11/18/18 07:03) Dipht,Pertuss(Acell),Tet Adult (Boostrix (11/18/18 07:15) Creatine Kinase (11/18/18 07:09) Lidocaine/Epi 2% 1:100,000 (Xylocaine/Ep (11/18/18 07:05) Lorazepam Injection (Ativan Injection) (11/18/18 07:28) Lorazepam Injection (Ativan Injection) (11/18/18 07:45) Ondansetron Injection (Zofran Injectio (11/18/18 07:45) Succinylcholine Injection (Succinylcholi (11/18/18 08:00) Etomidate Injection (Amidate Injection) (11/18/18 08:00) Chest 1 View, Ap/Pa Only (11/18/18 07:48) Norepinephrine (Levophed) (11/18/18 08:15) Saline Lock/Iv-Start (11/18/18 08:05) Ns Iv 1000 Ml (Sodium Chloride 0.9%) (11/18/18 08:05) Ekg Tracing (11/18/18 08:05) Ns Iv 1000 Ml (Sodium Chloride 0.9%) (11/18/18 08:02) Succinylcholine Injection (Succinylcholi (11/18/18 08:30) Etomidate Injection (Amidate Injection) (11/18/18 08:30) Ns (Ivpb) (Sodium C... W/Midazolam Injec (11/18/18 08:30) Ns (Ivpb) (Sodium C... W/Fentanyl Injec (11/18/18 08:30) Arterial Blood Gas (11/18/18 08:33) Blood Culture (11/18/18 09:16) Lactic Acid Analyzer (11/18/18 09:16) Ns W/Kcl 20 Meq/L (Ns Iv W/Kcl 20 Meq/L) (11/18/18 09:30) Ct Head Wo (11/18/18 09:36) Midazolam Injection (Versed Injection) (11/18/18 09:45) Midazolam Injection (Versed Injection) (11/18/18 09:45) Fentanyl Injection (Sublimaze Injection (11/18/18 09:45) Arterial Blood Gas (11/18/18 09:59) Medications Given in ED Current Medications Medications Dose Ordered Sig/Anna Route Start Time Stop Time Status Last Admin Dose Admin Diphtheria/ Tetanus/Acell Pertussis 0.5 ml ONCE ONCE IM 11/18/18 07:15 11/18/18 07:16 DC 11/18/18 08:10 0.5 ML Etomidate 20 mg ONCE ONCE IV 11/18/18 08:30 11/18/18 08:31 DC 11/18/18 07:54 20 MG Fentanyl Citrate 50 mcg ONCE ONCE IVP 11/18/18 09:45 11/18/18 09:46 DC 11/18/18 09:51 50 MCG Lidocaine/ Epinephrine 20 ml ONCE ONCE INJ 11/18/18 07:15 11/18/18 07:16 DC 11/18/18 07:10 20 ML Lorazepam 2 mg ONCE ONCE IVP 11/18/18 07:45 11/18/18 07:46 DC 11/18/18 07:33 2 MG Midazolam HCl 5 mg ONCE ONCE IVP 11/18/18 09:45 11/18/18 09:46 DC 11/18/18 08:27 5 MG Midazolam HCl 5 mg ONCE ONCE IVP 11/18/18 09:45 11/18/18 09:46 DC 11/18/18 09:50 5 MG Ondansetron HCl 4 mg ONCE ONCE IVP 11/18/18 07:45 11/18/18 07:46 DC 11/18/18 07:41 4 MG Sodium Chloride 500 ml @ 0 mls/hr Q0M ONCE IV 11/18/18 07:03 11/18/18 07:08 DC 11/18/18 08:04 500 MLS/HR Succinylcholine Chloride 20 mg ONCE ONCE INJ 11/18/18 08:00 11/18/18 08:18 DC 11/18/18 07:55 20 MG Vital Signs/I&O 11/18/18 11/18/18 06:57 09:00 Temp 98.0 Pulse 80 80 Resp 16 20 B/P (MAP) 150/78 (102) Pulse Ox 92 98 O2 Delivery Room Air FiO2 50 Blood Pressure Mean: 102 Progress Progress Note #1: Time: 09:51 Progress Note C-collar removed radiographically no evidence of fracture to the C-spine at 0818. Progress Note #2: Time: 10:18 Progress Note Levophed was started at 5 and the patient's blood pressure is now 117/73 in the supine position so we will drop down to 2 mcg/m. If with a start sedation will probably need to keep the Levophed going. At this time however she is not moving /agitated. Her ABG is showing improvement so we will continue the current settings 450 mL tidal volume, 20 respiratory rate and decrease the FiO2 down to 30. Initial ECG Impression Date: Nov 18, 2018 Initial ECG Impression Time: 07:05 Initial ECG Rate: 88 Initial ECG Rhythm: Normal Sinus Initial ECG Intervals: Normal Initial ECG Impression: Normal, Nonspecific Changes Comment PVCs. Respiratory artifact. No discernible significant ST elevation or depression. EKG : EKG Time: 08:12 Rate: 91 Rhythm: Normal Sinus Intervals: QT (506 ms) ECG Comparisson: Unchanged ECG Impression: Normal, Nonspecific Changes Comment No ST segment elevation or depression. Diagnostic Imaging Diagonstic Imaging: CT (noncontrast) Plain Films/CT/US/NM/MRI: c-spine, head Comments [facility], [place] NAME: MELANIE SIGALA [facility] REC#: [id number] PT STATUS: REG ER : 1950 PHYSICIAN: ANA CRISTINA PATEL MD ADMIT DATE: 11/18/18/ER Draft Date of Exam:11/18/18 CT HEAD/FACE/CERVICAL WO PROCEDURE: CT head, face, and cervical spine without contrast. TECHNIQUE: Multiple contiguous axial images were obtained through the head, neck, and facial bones without the use of intravenous contrast. Sagittal and coronal reformations through the cervical spine and facial bones were also performed. INDICATION: Trauma, fall, head laceration, swelling in the left eye, left forehead laceration. COMPARISON: 08/03/2018. FINDINGS: CT head: The ventricles and cortical sulci are mildly prominent, likely due to generalized parenchymal volume loss. No midline shift or significant mass effect is seen. There is no acute intracranial hemorrhage seen. No CT evidence of acute territorial ischemia seen. The calvarium appears intact. There is a large left frontal scalp hematoma with laceration. CT face: The pterygoid plates appear intact. The mandible appears intact, with degenerative changes at the temporomandibular joints bilaterally. The zygomatic arches are intact. No fluid levels are seen in the maxillary sinuses. There is mild leftward deviation of the nasal septum. The orbits appear intact. There is motion artifact about the orbits. The globes appear intact. No postseptal edema is seen. There is moderate left periorbital edema. CT cervical spine: Mild motion artifact is seen at the cervical spine as well. There is exaggerated lordosis of the cervical spine. Multilevel degenerative changes are seen, particularly at C1-C2, C4-C5, C5-C6 and C6-C7. There is multilevel facet arthropathy bilaterally. No significant spondylolisthesis is seen. There may be mild spinal canal narrowing at C4-C5 and C6-C7 due to osteophytes. The soft tissues of the spinal canal are suboptimally evaluated by CT. No bony fragments are seen in the spinal canal. No acute fracture is seen. There is foraminal stenosis at C4-C5 bilaterally, C5-C6 on the left. No acute abnormality is seen in the surrounding soft tissues. IMPRESSION: 1. No acute intracranial hemorrhage or CT evidence of acute territorial ischemia. 2. Large left frontal scalp hematoma with associated laceration. Moderate left periorbital edema. 3. No acute facial fracture is seen. 4. Degenerative changes in the cervical spine with no acute fractures seen. Dictated on workstation # [id number] Dict: 11/18/18 0816 Trans: 11/18/18 0838 [facility] [id number] Interpreted by: LAURENCE WOOD MD Electronically signed by: Reviewed: Reviewed by Ks Diagonstic Imaging: Xray Plain Films/CT/US/NM/MRI: chest (1v) Comments [facility], [place] NAME: MELANIE SIGALA [place] [facility] REC#: [id number] PT STATUS: REG ER : 1950 PHYSICIAN: ANA CRISTINA PATEL MD ADMIT DATE: 11/18/18/ER Draft Date of Exam:11/18/18 CHEST 1 VIEW, AP/PA ONLY PATIENT HISTORY: Trauma, fall. TECHNIQUE: Single frontal view of the chest COMPARISON: 08/08/2018 FINDINGS: There is mild cortical irregularity of the lateral right eighth rib. Irregularity of the lateral right fifth rib appears chronic. Lung volumes are large. There are mildly increased airspace opacities in the lung apices. No pneumothorax or pleural effusion is seen. The cardiac silhouette is stable in size. There are degenerative changes in the left shoulder. There is aortic atherosclerosis. IMPRESSION: 1. Cortical irregularity at the lateral right eighth rib, may represent a nondisplaced fracture. Please correlate with point tenderness. 2. Mildly increased opacities in the apices bilaterally, may represent edema or infection, consider followup. Dictated on workstation # [id number] Dict: 11/18/18 0811 Trans: 11/18/18 0817 [facility] [id number] Interpreted by: LAURENCE WOOD MD Electronically signed by: Genevievegonskatelyn Imaging: Xray Plain Films/CT/US/NM/MRI: chest (1v) Comments [facility], [place] NAME: MELANIE SIGALA [facility] REC#: [id number] PT STATUS: REG ER : 1950 PHYSICIAN: ANA CRISTINA PATEL MD ADMIT DATE: 11/18/18/ER Draft Date of Exam:11/18/18 CHEST 1 VIEW, AP/PA ONLY INDICATION: Respiratory failure Frontal chest obtained at 8:47 hours a.m. and compared with same day at 722 hours a.m. There is a new ET tube in place tip overlying mid trachea. NG tube tip is at the GE junction and should be advanced. Right IJ central catheter tip overlies the mid SVC. There is no pneumothorax. There are chronic appearing increased interstitial markings with no focal infiltrate. IMPRESSION: Life-support lines as described above, NG tube tip is at the GE junction and should be advanced. No focal infiltrate or pneumothorax or pleural fluid. Dictated on workstation # [id number] Dict: 11/18/18 0856 Trans: 11/18/18 0901 [facility] [id number] Interpreted by: RICH VEGAS MD Electronically signed by: Reviewed: Reviewed by Me Consults : Consulting Physician: MO JACKSON DO Consults Notes 0907: Discussed the case lab imaging findings and then seizure activity and he agrees with getting a second CT scan after the seizure. He would like to keep the patient here but we are on diversion and therefore we have to send the patient out. Critical Care Note Critical Care Start Time: 07:30 Stop Time: 09:30 Total Time (minutes) 120 m Progress Called the room because the patient was having seizure activity. She presented for a fall with obvious external facial trauma. We previously put 3 stitches in some lidocaine with epinephrine and the laceration above her left eye got that hemostatic. Patient had seizure-like activity holding her breath and being rigid full body involvement for approximately 30 seconds. 2 mg Ativan were given. Her oxygen sats were in the high 40s immediately after the seizure so she was put on high flow oxygen which promptly brought her oxygen sats back up to the 90s. The patient was then obtunded her capnography was Showing her CO2 going up and her oxygen sats were going down the low 90s high 80s so the decision to intubate was made. GCS at that time was about 5. Intubation would also protect her airway. After intubation we started her at 4 50 cc per breath with 15 breaths per minute. Her peak pressures were high above 32 cm water pressure so we decreased her volume down to 400 and increased the rate to 18. Her blood pressure and also been dropping and her heart rate went up to 140- 150. After making the ventilatory changes and initiating a 30 mL/kg fluid bolus of 1500 cc her blood pressure improved significantly. Her blood pressure got down to about 80 systolic with a map of 65 kg. We started a central line but by the time and got it in her blood pressure was back up about 100 systolic. Goal is to use Versed and fentanyl for her sedation which would also control for the possibility of seizures. CT did not demonstrate any bleed or fracture however suspect there may be an occult bleed. She did not require any sedation yet but we did give her 5 mg of Versed times one. ABG was obtained which showed over 300 on the PaO2 and elevated CO2 and a restaurant acidosis. We increased her ventilatory rate to 20 breaths per minute and tidal volume of 450 and this brought her end-tidal CO2 down to about 30 and we will recheck an ABG and 30 minutes. We discussed the case with Dr. Jackson, trauma surgery and he agrees with getting a second CT of the head since she stable. Her blood pressure is much improved with the fluids so we 120 cc of normal saline with potassium going. We will put ultrasound on to do the central line her right IJ was full in the supine position. Patient's blood pressure was in the range of about 120 systolic when she left the CT scanner but we gave her 5 more milligrams of Versed because she was starting to move around a lot. Somehow she had displaced her NG tube. We replaced the NG tube and by time she had CT scan her blood pressure was back down in the 80s probably owing to the Versed. We will start Levophed. Her map was 65 when she returned from the CT scanner and Levophed was initiated at 5 g a minute. Her ABG demonstrated that her respiratory acidosis was improving so we'll leave the ventilator alone. Departure Impression Primary Impression: Fall Qualified Codes: W19.XXXA - Unspecified fall, initial encounter Additional Impressions: Hematoma Laceration Seizure Acute respiratory failure Qualified Codes: J96.01 - Acute respiratory failure with hypoxia; J96.02 - Acute respiratory failure with hypercapnia Acute respiratory acidosis Intubation of airway performed without difficulty Disposition: 02 XFER SHT-TRM HOSP Condition: Stable Transfer Time Spoke to Accepting Phy: 09:30 Transfer Progress Notes Spoke to ER doctor and the patient is accepted but they would like a CT scan of the head again to look for a developing bleed. Helicopter and fixed wing of declined transport. We are working on ground transport. Transfer Facility: [place], [place] Method of Transfer: EMS Departure-Patient Inst. Referrals: CEASAR SNYDER MD (PCP/Family) Primary Care Physician ANA CRISTINA PATEL Nov 18, 2018 07:26
[2018-11-18] MEDS ORDERED: LORazepam INJ 2 MG/ML (ATIVAN) VIAL ONE (07:28)
--- NOTE | 2018-11-18 07:30 | NUR ---
UPON RETURN FROM CT PT WAS HAVING A SEIZURE. NOTIFIED.
--- NOTE | 2018-11-18 07:33 | NUR ---
ATIVAN 2MG IV GIVEN. PULSE OX ON 53% ON 2LNC. OXYGEN SWITCHED TO A OXYMASK ET DR PATEL IN ROOM.
--- NOTE | 2018-11-18 07:35 | NUR ---
PULSE OX 91% WITH OXYMASK. Addendum: 11/18/18 at 1034 by NSNYDER PT IS POSTICTAL AT THIS TIME.
--- NOTE | 2018-11-18 07:40 | NUR ---
PULSE OX 97% WITH OXYMASK.
--- NOTE | 2018-11-18 07:41 | NUR ---
PHONE CALL PLACED TO SISTER RONNIE AT [phone]. NO ANSWER AND NO VOICEMAIL NOTED. WILL ATTEMPT TO CONTACT AGAIN SHORTLY.
--- NOTE | 2018-11-18 07:43 | NUR ---
NASAL TRUMPET RIGHT NARE BY DR PATEL DUE TO SNOROUS RESPIRATIONS.
--- NOTE | 2018-11-18 07:44 | NUR ---
PT DOES NOT HAVE SNOROUS RESPERATIONS AT THIS TIME.
[2018-11-18] MEDS ORDERED: LORazepam INJ 2 MG/ML (ATIVAN) VIAL IVP ONE (07:45)
[2018-11-18] MEDS ORDERED: ONDANSETRON 4 MG/2 ML (SDV) Z0FRAN IVP ONE (07:45)
--- NOTE | 2018-11-18 07:50 | NUR ---
IN ROOM PREPARING TO INTUBATE.
[2018-11-18 07:51] LABS: HEMOGLOBIN 14.6 G/DL (11.5-16.0); MEAN PLATELET VOLUME 9.6 FL (7.4-10.4); RED BLOOD COUNT 4.97 10^6/uL (4.35-5.85); RED CELL DISTRIBUTION WIDTH 15.7 % (10.0-14.5); WHITE BLOOD COUNT 14.6 10^3/uL (4.3-11.0)
--- NOTE | 2018-11-18 07:55 | NUR ---
Lisa monroe in [facility] - 11/18/18 at 0756 by REID IN ROOM PREPARING TO INTUBATE.
--- NOTE | 2018-11-18 07:58 | NUR ---
BBS COLOR CHANGE ET FOG IN ET TUBE.
[2018-11-18] MEDS ORDERED: NS IV 1000 ML 1,000 ML ONE (08:02)
--- NOTE | 2018-11-18 08:04 | NUR ---
BP 66/[address] YOUNG ET FLUIDS IZABELLA.
[2018-11-18] MEDS ORDERED: NS IV 1000 ML 1,000 ML IV SCH (08:05)
[2018-11-18 08:06] LABS: BILIRUBIN,URINE NEGATIVE (NEGATIVE); CLARITY,URINE SLIGHTLY CLOUDY; COLOR,URINE AMBER; GLUCOSE, URINE (UA) NEGATIVE (NEGATIVE); KETONES,URINE NEGATIVE (NEGATIVE); LEUKOCYTE ESTERASE ,URINE 1+ (NEGATIVE); NITRITE,URINE NEGATIVE (NEGATIVE); PH,URINE 5 (5-9); PROTEIN,URINE 3+ (NEGATIVE); UROBILINOGEN,URINE 1 MG/DL (NORMAL)
[2018-11-18 08:07] LABS: ALANINE AMINOTRANSFERASE 12 U/L (0-55); ALBUMIN 3.7 GM/DL (3.2-4.5); ALKALINE PHOSPHATASE 86 U/L (40-136); BILIRUBIN,DIRECT 0.2 MG/DL (0.0-0.3); BILIRUBIN,INDIRECT 0.1 MG/DL; BILIRUBIN,TOTAL 0.3 MG/DL (0.1-1.0); BUN/CREATININE RATIO 17; CALCIUM 8.4 MG/DL (8.5-10.1); CARBON DIOXIDE 22 MMOL/L (21-32); CHLORIDE 98 MMOL/L (98-107); CREATINE KINASE 163 U/L (29-168); CREATININE SERUM 0.71 MG/DL (0.60-1.30); GFR ESTIMATED > 60; GLUCOSE 140 MG/DL (70-105); POTASSIUM 3.5 MMOL/L (3.6-5.0); SODIUM 132 MMOL/L (135-145); TOTAL PROTEIN 6.8 GM/DL (6.4-8.2)
--- OUTSIDE RECORDS SUMMARY | 2018-11-18 08:12 | XMS REPORT | Continuity of Care Document ---
Author Author [facility] Organization [facility] Address Unknown Phone Unavailable Allergies Active Description Code Type Severity Reaction Onset Reported/Identified Relationship to Patient Clinical Status Yes NUTS Moderate N/ A 11/07/2006 Yes celecoxib Drug Allergy Unknown GI UPSET 01/20/2009 Yes acetaminophen [id number] Drug Allergy Unknown N/A 01/16/2016 Yes diphenhydramine [id number] Drug Allergy Unknown N/A 08/03/2018 Yes oxymorphone [id number] Drug Allergy Unknown N/A 08/03/2018 Yes varenicline [id number] Drug Allergy Unknown N/A 08/03/2018 Medications There is no data. Problems Date Dx Coded Attending Type Code Diagnosis Diagnosed By 01/16/2016 KEVON FIERRO DO Ot F17.210 NICOTINE DEPENDENCE, CIGARETTES, UNCOMPL 01/16/2016 KEVON FIERRO DO Ot J44.0 CHRONIC OBSTRUCTIVE PULMON DISEASE W ACU 01/16/2016 KEVON FIERRO DO Ot R19.7 DIARRHEA, UNSPECIFIED 05/21/2016 SINDY GALE DO Ot F17.210 NICOTINE DEPENDENCE, CIGARETTES, UNCOMPL 05/21/2016 SINDY GALE DO Ot I10 ESSENTIAL (PRIMARY) HYPERTENSION 05/21/2016 SINDY GALE DO Ot I25.10 ATHSCL HEART DISEASE OF [place] CORONARY 05/21/2016 SINDY GALE DO Ot I25.2 OLD MYOCARDIAL INFARCTION 05/21/2016 SINDY GALE DO Ot J44.9 CHRONIC OBSTRUCTIVE PULMONARY DISEASE, U 05/21/2016 SINDY GALE DO Ot T40.601A POISONING BY UNSP NARCOTICS, ACCIDENTAL, 05/21/2016 SINDY GALE DO Ot Z95.5 PRESENCE OF CORONARY ANGIOPLASTY IMPLANT 05/21/2016 SINDY GALE DO Ot F17.210 NICOTINE DEPENDENCE, CIGARETTES, UNCOMPL 05/21/2016 SINDY GALE DO Ot I10 ESSENTIAL (PRIMARY) HYPERTENSION 05/21/2016 SINDY GALE DO Ot I25.10 ATHSCL HEART DISEASE OF [place] CORONARY 05/21/2016 SINDY GALE DO Ot I25.2 OLD MYOCARDIAL INFARCTION 05/21/2016 SINDY GALE DO Ot J44.9 CHRONIC OBSTRUCTIVE PULMONARY DISEASE, U 05/21/2016 SINDY GALE DO Ot T40.601A POISONING BY UNSP NARCOTICS, ACCIDENTAL, 05/21/2016 SINDY GALE DO Ot Z95.5 PRESENCE OF CORONARY ANGIOPLASTY IMPLANT 10/03/2017 Aimee LEWIS MD Ot E78.5 HYPERLIPIDEMIA, UNSPECIFIED 10/03/2017 Amiee LEWIS MD Ot F17.290 NICOTINE DEPENDENCE, OTHER TOBACCO PRODU 10/03/2017 Aimee LEWIS MD Ot I10 ESSENTIAL (PRIMARY) HYPERTENSION 10/03/2017 Aimee LEWIS MD Ot I25.10 ATHSCL HEART DISEASE OF [place] CORONARY 10/03/2017 Aimee LEWIS MD Ot I25.2 OLD MYOCARDIAL INFARCTION 10/03/2017 Aimee LEWIS MD Ot I70.213 ATHSCL [place] ARTERIES OF EXTRM W INTRMT 10/03/2017 Aimee LEWIS MD Ot R06.02 SHORTNESS OF BREATH 10/03/2017 Aimee LEWIS MD Ot Z79.82 [employer] (CURRENT) USE OF ASPIRIN 10/03/2017 Aimee LEWIS MD Ot Z79.899 OTHER [employer] (CURRENT) DRUG THERAPY 10/03/2017 Aimee LEWIS MD Ot Z95.5 PRESENCE OF CORONARY ANGIOPLASTY IMPLANT 10/09/2017 Aimee LEWIS MD Ot E78.5 HYPERLIPIDEMIA, UNSPECIFIED 10/09/2017 Aimee LEWIS MD Ot F17.290 NICOTINE DEPENDENCE, OTHER TOBACCO PRODU 10/09/2017 Aimee LEWIS MD Ot I10 ESSENTIAL (PRIMARY) HYPERTENSION 10/09/2017 Aimee LEWIS MD Ot I25.10 ATHSCL HEART DISEASE OF [place] CORONARY 10/09/2017 Aimee LEWIS MD Ot I25.2 OLD MYOCARDIAL INFARCTION 10/09/2017 Aimee LEWIS MD Ot 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 10/09/2017 Aimee LEWIS MD Ot R06.02 SHORTNESS OF BREATH 10/09/2017 Aimee LEWIS MD Ot Z79.82 [employer] (CURRENT) USE OF ASPIRIN 10/09/2017 Aimee LEWIS MD Ot Z79.899 OTHER [employer] (CURRENT) DRUG THERAPY 10/09/2017 Aimee LEWIS MD [...] MD Ot I25.10 ATHSCL HEART DISEASE OF [place] CORONARY 11/21/2017 Aimee LEWIS MD Ot I25.2 OLD MYOCARDIAL INFARCTION 11/21/2017 Aimee LEWIS MD Ot I27.20 PULMONARY HYPERTENSION, UNSPECIFIED 11/21/2017 Aimee LEWIS MD Ot I70.213 ATHSCL [place] ARTERIES OF EXTR [facility] 11/21/2017 Aimee LEWIS MD Ot T82.855A STENOSIS OF CORONARY ARTERY STENT, INITI 11/21/2017 Aimee LEWIS MD Ot Z79.82 [facility] (CURRENT) USE OF ASPIRIN 11/21/2017 Aimee LEWIS MD Ot Z79.899 OTHER [employer] (CURRENT) DRUG THERAPY 11/21/2017 Aimee LEWIS MD [...] MD Ot I25.10 ATHSCL HEART DISEASE OF [place] CORONARY 11/25/2017 Aimee LEWIS MD Ot I25.2 OLD MYOCARDIAL INFARCTION 11/25/2017 Aimee LEWIS MD Ot I27.20 PULMONARY HYPERTENSION, UNSPECIFIED 11/25/2017 Aimee LEWIS MD Ot I70.213 ATHSCL [place] ARTERIES OF EXTRM W INTRMT 11/25/2017 Aimee LEWIS MD Ot T82.855A STENOSIS OF CORONARY ARTERY STENT, INITI 11/25/2017 Aimee LEWIS MD Ot Z79.82 [facility] (CURRENT) USE OF ASPIRIN 11/25/2017 Aimee LEWIS MD Ot Z79.899 OTHER [employer] (CURRENT) DRUG THERAPY 11/25/2017 Aimee LEWIS MD [...] MD Ot I25.10 ATHSCL HEART DISEASE OF [place] CORONARY 11/26/2017 Aimee LEWIS MD Ot I25.2 OLD MYOCARDIAL INFARCTION 11/26/2017 Aimee LEWIS MD Ot I27.20 PULMONARY HYPERTENSION, UNSPECIFIED 11/26/2017 Aimee LEWIS MD Ot I70.213 ATHSCL [place] ARTERIES OF EXTRM W INTRMT 11/26/2017 Aimee LEWIS MD Ot T82.855A STENOSIS OF CORONARY ARTERY STENT, INITI 11/26/2017 Aimee LEWIS MD Ot Z79.82 [facility] (CURRENT) USE OF ASPIRIN 11/26/2017 Aimee LEWIS MD Ot Z79.899 OTHER [employer] (CURRENT) DRUG THERAPY 11/26/2017 Aimee LEWIS MD Ot Z95.5 PRESENCE OF CORONARY ANGIOPLASTY IMPLANT 12/02/2017 Aimee LEWIS MD Ot E78.5 HYPERLIPIDEMIA, UNSPECIFIED 12/02/2017 Aimee LEWIS MD Ot F17.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, UNSPECIFIED, UNCOMP 12/02/2017 Aimee LEWIS MD Ot I10 ESSENTIAL (PRIMARY) HYPERTENSION 12/02/2017 Aimee LEWIS MD Ot I25.10 ATHSCL HEART DISEASE OF [place] CORONARY 12/02/2017 Aimee LEWIS MD Ot R06.02 SHORTNESS OF BREATH 12/02/2017 Aimee LEWIS MD Ot E78.5 HYPERLIPIDEMIA, UNSPECIFIED 12/02/2017 Aimee LEWIS MD Ot F17.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, UNSPECIFIED, UNCOMP 12/02/2017 Aimee LEWIS MD Ot I10 ESSENTIAL (PRIMARY) HYPERTENSION 12/02/2017 Aimee LEWIS MD Ot I25.10 ATHSCL HEART DISEASE OF [place] CORONARY 12/02/2017 Aimee LEWIS MD Ot I73.9 PERIPHERAL VASCULAR DISEASE, UNSPECIFIED 12/02/2017 Aimee LEWIS MD Ot R06.02 SHORTNESS OF BREATH 12/02/2017 Aimee LEWIS MD Ot I25.10 ATHSCL HEART DISEASE OF [place] CORONARY 12/02/2017 Aimee LEWIS MD Ot I25.2 [...] MD Ot I25.10 ATHSCL HEART DISEASE OF [place] CORONARY 12/09/2017 Aimee LEWIS MD Ot R06.02 SHORTNESS OF BREATH 12/17/2017 Aimee LEWIS MD Ot E78.5 HYPERLIPIDEMIA, UNSPECIFIED 12/17/2017 Aimee LEWIS MD Ot F17.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, UNSPECIFIED, UNCOMP 12/17/2017 Aimee LEWIS MD Ot I10 ESSENTIAL (PRIMARY) HYPERTENSION 12/17/2017 Aimee LEWIS MD Ot I25.10 ATHSCL HEART DISEASE OF [place] CORONARY 12/17/2017 Aimee LEWIS MD Ot R06.02 SHORTNESS OF BREATH 02/20/2018 Aimee LEWIS MD Ot E78.5 HYPERLIPIDEMIA, UNSPECIFIED 02/20/2018 Aimee LEWIS MD Ot F17.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, UNSPECIFIED, UNCOMP 02/20/2018 Aimee LEWIS MD Ot I10 ESSENTIAL (PRIMARY) HYPERTENSION 02/20/2018 Aimee LEWIS MD Ot I25.10 ATHSCL HEART DISEASE OF [place] CORONARY 02/20/2018 Aimee LEWIS MD Ot I73.9 PERIPHERAL VASCULAR DISEASE, UNSPECIFIED 02/20/2018 Aimee LEWIS MD Ot R06.02 SHORTNESS OF BREATH 02/20/2018 Aimee LEWIS MD Ot E78.5 HYPERLIPIDEMIA, UNSPECIFIED 02/20/2018 Aimee LEWIS MD Ot F17.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, UNSPECIFIED, UNCOMP 02/20/2018 Aimee LEWIS MD Ot I10 ESSENTIAL (PRIMARY) HYPERTENSION 02/20/2018 Aimee LEWIS MD Ot I25.10 ATHSCL HEART DISEASE OF [place] CORONARY 02/20/2018 Aimee LEWIS MD Ot R06.02 SHORTNESS OF BREATH 02/20/2018 Aimee LEWIS MD Ot I25.10 ATHSCL HEART DISEASE OF [place] CORONARY 02/20/2018 Aimee LEWIS MD Ot I25.2 OLD MYOCARDIAL INFARCTION 02/20/2018 Aimee LEWIS MD Ot R93.1 ABNORMAL FINDINGS ON DX IMAGING OF HEART 02/20/2018 Aimee LEWIS MD Ot R94.39 ABNORMAL RESULT OF OTHER CARDIOVASCULAR 02/20/2018 Aimee LEWIS MD Ot I25.10 ATHSCL HEART DISEASE OF [place] CORONARY 02/20/2018 Aimee LEWIS MD Ot I25.2 [...] NICOTINE DEPENDENCE, CIGARETTES, UNCOMPL 05/26/2018 DARCI MATIAS MD, Ot F41.9 ANXIETY DISORDER, UNSPECIFIED 05/26/2018 DARCI MATIAS MD Ot I10 ESSENTIAL (PRIMARY) HYPERTENSION 05/26/2018 DARCI MATIAS MD, Ot I25.10 ATHSCL HEART DISEASE OF [place] CORONARY 05/26/2018 DARCI MATIAS MD Ot I25.2 OLD MYOCARDIAL INFARCTION 05/26/2018 DARCI MATIAS MD Ot J44.9 CHRONIC OBSTRUCTIVE PULMONARY DISEASE, U 05/26/2018 DARCI MATIAS MD, Ot J45.909 UNSPECIFIED ASTHMA, UNCOMPLICATED 05/26/2018 DARCI MATIAS MD Ot K52.9 NONINFECTIVE GASTROENTERITIS AND COLITIS 05/26/2018 DARCI MATIAS MD Ot R10.13 EPIGASTRIC PAIN 05/26/2018 DARCI MATIAS MD Ot R63.4 ABNORMAL WEIGHT LOSS 05/26/2018 DARCI MATIAS MD Ot Z79.82 FELT [employer] (CURRENT) USE OF ASPIRIN 05/26/2018 DARCI MATIAS MD Ot Z79.899 OTHER [facility] (CURRENT) DRUG THERAPY 05/26/2018 DARCI MATIAS MD [...] MD Ot I25.10 ATHSCL HEART DISEASE OF [place] CORONARY 05/26/2018 DARCI MATIAS MD Ot I25.2 OLD MYOCARDIAL INFARCTION 05/26/2018 DARCI MATIAS MD Ot J44.9 CHRONIC OBSTRUCTIVE PULMONARY DISEASE, U 05/26/2018 DARCI MATIAS MD Ot J45.909 UNSPECIFIED ASTHMA, UNCOMPLICATED 05/26/2018 DARCI MATIAS MD Ot K52.9 NONINFECTIVE GASTROENTERITIS AND COLITIS 05/26/2018 DARCI MATIAS MD Ot R10.13 EPIGASTRIC PAIN 05/26/2018 DARCI MATIAS MD Ot R63.4 ABNORMAL WEIGHT LOSS 05/26/2018 DARCI MATIAS MD Ot Z79.82 FELT [employer] (CURRENT) USE OF ASPIRIN 05/26/2018 DARCI MATIAS MD Ot Z79.899 OTHER [employer] (CURRENT) DRUG THERAPY 05/26/2018 DARCI MATIAS MD Ot Z95.5 PRESENCE OF CORONARY ANGIOPLASTY IMPLANT 06/02/2018 SAI COOK MD Ot F17.210 NICOTINE DEPENDENCE, CIGARETTES, UNCOMPL 06/02/2018 SAI COOK MD Ot F31.9 BIPOLAR DISORDER, UNSPECIFIED 06/02/2018 SAI COOK MD Ot F41.9 ANXIETY DISORDER, UNSPECIFIED 06/02/2018 SAI COOK MD Ot G25.81 RESTLESS LEGS SYNDROME 06/02/2018 JOEY SAAVEDRA, SAI M Ot I10 ESSENTIAL (PRIMARY) HYPERTENSION 06/02/2018 JOEY SAAVEDRA, SAI Yu Ot I25.10 ATHSCL HEART DISEASE OF [place] CORONARY 06/02/2018 JOEY SAAVEDRA, SAI Yu Ot I25.2 OLD MYOCARDIAL INFARCTION 06/02/2018 JOEY SAAVEDRA, SAI Yu Ot J44.9 CHRONIC OBSTRUCTIVE PULMONARY DISEASE, U 06/02/2018 JOEY SAAVEDRA, SAI Yu Ot K25.9 GASTRIC ULCER, UNSP ACUTE OR CHRONIC, 06/02/2018 JOEY SAAVEDRA, SAI Yu Ot K44.9 DIAPHRAGMATIC HERNIA WITHOUT OBSTRUCTION 06/02/2018 JOEY SAAVEDRA, SAI M Ot K50.90 CROHN'S DISEASE, UNSPECIFIED, WITHOUT CO 06/02/2018 SAI COOK MD Ot Z95.5 PRESENCE OF CORONARY ANGIOPLASTY IMPLANT 06/03/2018 SAI COOK MD M Ot F17.210 NICOTINE DEPENDENCE, CIGARETTES, UNCOMPL 06/03/2018 SAI COOK MD Ot F31.9 BIPOLAR DISORDER, UNSPECIFIED 06/03/2018 SAI COOK MD Ot F41.9 ANXIETY DISORDER, UNSPECIFIED 06/03/2018 JOEY SAAVEDRA, SAI Yu Ot G25.81 RESTLESS LEGS SYNDROME 06/03/2018 JOEY SAAVEDRA, SAI M Ot I10 ESSENTIAL (PRIMARY) HYPERTENSION 06/03/2018 JOEY SAAVEDRA, SAI Yu Ot I25.10 ATHSCL HEART DISEASE OF [place] CORONARY 06/03/2018 JOEY SAAVEDRA, SAI Yu Ot I25.2 OLD MYOCARDIAL INFARCTION 06/03/2018 JOEY SAAVEDRA, SAI Yu Ot J44.9 CHRONIC OBSTRUCTIVE PULMONARY DISEASE, U 06/03/2018 JOEY SAAVEDRA, SAI Yu Ot K25.9 GASTRIC ULCER, UNSP ACUTE OR CHRONIC, 06/03/2018 SAI COOK MD Ot K44.9 DIAPHRAGMATIC HERNIA WITHOUT OBSTRUCTION 06/03/2018 SAI COOK MD M Ot K50.90 CROHN'S DISEASE, UNSPECIFIED, WITHOUT CO 06/03/2018 SAI COOK MD M Ot Z95.5 PRESENCE OF CORONARY ANGIOPLASTY IMPLANT 06/03/2018 SAI COOK MD M Ot F17.210 NICOTINE DEPENDENCE, CIGARETTES, UNCOMPL 06/03/2018 JOEY SAAVEDRA, SAI Yu Ot F31.9 BIPOLAR DISORDER, UNSPECIFIED 06/03/2018 JOEY SAAVEDRA, SAI Yu Ot F41.9 ANXIETY DISORDER, UNSPECIFIED 06/03/2018 JOEY SAAVEDRA, SAI Yu Ot G25.81 RESTLESS LEGS SYNDROME 06/03/2018 JOEY SAAVEDRA, SAI Yu Ot I10 ESSENTIAL (PRIMARY) HYPERTENSION 06/03/2018 JOEY SAAVEDRA, SAI Yu Ot I25.10 ATHSCL HEART DISEASE OF [place] CORONARY 06/03/2018 JOEY SAAVEDRA, SAI Yu Ot I25.2 OLD MYOCARDIAL INFARCTION 06/03/2018 OJEY SAAVEDRA, SAI uY Ot J44.9 CHRONIC OBSTRUCTIVE PULMONARY DISEASE, U 06/03/2018 JOEY SAAVEDRA, SAI Yu Ot K25.9 GASTRIC ULCER, UNSP ACUTE OR CHRONIC, 06/03/2018 JOEY SAAVEDRA, SAI Yu Ot K44.9 DIAPHRAGMATIC HERNIA WITHOUT OBSTRUCTION 06/03/2018 JOEY SAAVEDRA, SAI Yu Ot K50.90 CROHN'S DISEASE, UNSPECIFIED, WITHOUT CO 06/03/2018 JOEY SAAVEDRA, SAI Yu Ot Z95.5 PRESENCE OF CORONARY ANGIOPLASTY IMPLANT 08/05/2018 CEASAR SNYDER MD Ot E78.5 HYPERLIPIDEMIA, UNSPECIFIED 08/05/2018 CEASAR SNYDER MD Ot F17.210 NICOTINE DEPENDENCE, CIGARETTES, UNCOMPL 08/05/2018 CEASAR SNYDER MD Ot F17.290 NICOTINE DEPENDENCE, OTHER TOBACCO PRODU 08/05/2018 CEASAR SNYDER MD Ot F31.9 BIPOLAR DISORDER, UNSPECIFIED 08/05/2018 CEASAR SNYDER MD Ot F41.0 PANIC DISORDER [EPISODIC PAROXYSMAL ANXI 08/05/2018 CEASAR SNYDER MD Ot F43.10 POST-TRAUMATIC STRESS DISORDER, UNSPECIF 08/05/2018 CEASAR SNYDER MD Ot F51.3 SLEEPWALKING [SOMNAMBULISM] 08/05/2018 CEASAR SNYDER MD Ot G25.81 RESTLESS LEGS SYNDROME 08/05/2018 CEASAR SNYDER MD Ot G89.4 CHRONIC PAIN SYNDROME 08/05/2018 CEASAR SNYDER MD Ot 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 08/05/2018 CEASAR SNYDER MD Ot I10 ESSENTIAL (PRIMARY) HYPERTENSION 08/05/2018 CEASAR SNYDER MD, Ot 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 08/05/2018 CEASAR SNYDER MD, Ot I25.2 OLD MYOCARDIAL INFARCTION 08/05/2018 CEASAR SNYDER MD, Ot I70.0 ATHEROSCLEROSIS OF [place] 08/05/2018 CEASAR SNYDER MD, Ot I73.9 PERIPHERAL VASCULAR DISEASE, UNSPECIFIED 08/05/2018 CEASAR SNYDER MD, Ot J44.9 CHRONIC OBSTRUCTIVE PULMONARY DISEASE, U 08/05/2018 CEASAR SNYDER MD, Ot J45.30 MILD PERSISTENT ASTHMA, UNCOMPLICATED 08/05/2018 CEASAR SNYDER MD, Ot K21.9 GASTRO-ESOPHAGEAL REFLUX DISEASE WITHOUT 08/05/2018 CEASAR SNYDER MD, Ot K50.90 CROHN'S DISEASE, UNSPECIFIED, WITHOUT CO 08/05/2018 CEASAR SNYDER MD, Ot M19.91 PRIMARY OSTEOARTHRITIS, UNSPECIFIED SITE 08/05/2018 CEASAR SNYDER MD, Ot M54.9 DORSALGIA, UNSPECIFIED 08/05/2018 CEASAR SNYDER MD, Ot S72.141A DISPLACED INTERTROCHANTERIC FRACTURE OF 08/05/2018 CEASAR SNYDER MD, Ot W18.00XA STRIKING AGAINST UNSP OBJECT W SUBSEQUEN 08/05/2018 CEASAR SNYDER MD, Ot Z85.43 PERSONAL HISTORY OF MALIGNANT NEOPLASM O 08/05/2018 CEASAR SNYDER MD, Ot Z85.828 PERSONAL HISTORY OF OTHER MALIGNANT NEOP 08/05/2018 CEASAR SNYDER MD, Ot Z95.5 PRESENCE OF CORONARY ANGIOPLASTY IMPLANT 08/08/2018 CEASAR SNYDER MD, Ot E78.5 HYPERLIPIDEMIA, UNSPECIFIED 08/08/2018 CEASAR SNYDER MD, Ot F17.210 NICOTINE DEPENDENCE, CIGARETTES, UNCOMPL 08/08/2018 CEASAR SNYDER MD, Ot F17.290 NICOTINE DEPENDENCE, OTHER TOBACCO PRODU 08/08/2018 CEASAR SNYDER MD, Ot F31.9 BIPOLAR DISORDER, UNSPECIFIED 08/08/2018 CEASAR SNYDER MD, Ot F41.0 PANIC DISORDER [EPISODIC PAROXYSMAL ANXI 08/08/2018 CEASAR SNYDER MD, Ot F43.10 POST-TRAUMATIC STRESS DISORDER, UNSPECIF 08/08/2018 CEASAR SNYDER MD, Ot F51.3 SLEEPWALKING [SOMNAMBULISM] 08/08/2018 CEASAR SNYDER MD, Ot G25.81 RESTLESS LEGS SYNDROME 08/08/2018 CEASAR SNYDER MD, Ot G89.4 CHRONIC PAIN SYNDROME 08/08/2018 CEASAR SNYDER MD, Ot 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 08/08/2018 CEASAR SNYDER MD Ot I10 ESSENTIAL (PRIMARY) HYPERTENSION 08/08/2018 CEASAR SNYDER MD, Ot 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 08/08/2018 CEASAR SNYDER MD, Ot I25.2 OLD MYOCARDIAL INFARCTION 08/08/2018 CEASAR SNYDER MD, Ot I70.0 ATHEROSCLEROSIS OF [place] 08/08/2018 CEASAR SNYDER MD, Ot I73.9 PERIPHERAL VASCULAR DISEASE, UNSPECIFIED 08/08/2018 CEASAR SNYDER MD, Ot J44.9 CHRONIC OBSTRUCTIVE PULMONARY DISEASE, U 08/08/2018 CEASAR SNYDER MD, Ot J45.30 MILD PERSISTENT ASTHMA, UNCOMPLICATED 08/08/2018 CEASAR SNYDER MD, Ot K21.9 GASTRO-ESOPHAGEAL REFLUX DISEASE WITHOUT 08/08/2018 CEASAR SNYDER MD, Ot K50.90 CROHN'S DISEASE, UNSPECIFIED, WITHOUT CO 08/08/2018 CEASAR SNYDER MD, Ot M19.91 PRIMARY OSTEOARTHRITIS, UNSPECIFIED SITE 08/08/2018 CEASAR SNYDER MD, Ot M54.9 DORSALGIA, UNSPECIFIED 08/08/2018 CEASAR SNYDER MD, Ot S72.141A DISPLACED INTERTROCHANTERIC FRACTURE OF 08/08/2018 CEASAR SNYDER MD Ot W18.00XA STRIKING AGAINST UNSP OBJECT W SUBSEQUEN 08/08/2018 CEASAR SNYDER MD, Ot Z85.43 PERSONAL HISTORY OF MALIGNANT NEOPLASM O 08/08/2018 CEASAR SNYDER MD, Ot Z85.828 PERSONAL HISTORY OF OTHER MALIGNANT NEOP 08/08/2018 CEASAR SNYDER MD Ot Z95.5 PRESENCE OF CORONARY ANGIOPLASTY IMPLANT 08/08/2018 CEASAR SNYDER MD, Ot E78.5 HYPERLIPIDEMIA, UNSPECIFIED 08/08/2018 CAESAR SNYDER MD, Ot F17.210 NICOTINE DEPENDENCE, CIGARETTES, UNCOMPL 08/08/2018 HUERTER MD, CEASAR F Ot F17.290 NICOTINE DEPENDENCE, OTHER TOBACCO PRODU 08/08/2018 CEASAR SNYDER MD, Ot F31.9 BIPOLAR DISORDER, UNSPECIFIED 08/08/2018 CEASAR SNYDER MD, Ot F41.0 PANIC DISORDER [EPISODIC PAROXYSMAL ANXI 08/08/2018 CEASAR SNYDER MD, Ot F43.10 POST-TRAUMATIC STRESS DISORDER, UNSPECIF 08/08/2018 CEASAR SNYDER MD, Ot F51.3 SLEEPWALKING [SOMNAMBULISM] 08/08/2018 CEASAR SNYDER MD, Ot G25.81 RESTLESS LEGS SYNDROME 08/08/2018 CEASAR SNYDER MD, Ot G89.4 CHRONIC PAIN SYNDROME 08/08/2018 CEASAR SNYDER MD, Ot 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 08/08/2018 CEASAR SNYDER MD, Ot I10 ESSENTIAL (PRIMARY) HYPERTENSION 08/08/2018 CEASAR SNYDER MD, Ot 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 08/08/2018 CEASAR SNYDER MD, Ot I25.2 OLD MYOCARDIAL INFARCTION 08/08/2018 CEASAR SNYDER MD, Ot I70.0 ATHEROSCLEROSIS OF [place] 08/08/2018 CEASAR SNYDER MD, Ot I73.9 PERIPHERAL VASCULAR DISEASE, UNSPECIFIED 08/08/2018 CEASAR SNYDER MD, Ot J44.9 CHRONIC OBSTRUCTIVE PULMONARY DISEASE, U 08/08/2018 CEASAR SNYDER MD, Ot J45.30 MILD PERSISTENT ASTHMA, UNCOMPLICATED 08/08/2018 CEASAR SNYDER MD Ot K21.9 GASTRO-ESOPHAGEAL REFLUX DISEASE WITHOUT 08/08/2018 CEASAR SNYDER MD, Ot K50.90 CROHN'S DISEASE, UNSPECIFIED, WITHOUT CO 08/08/2018 CEASAR SNYDER MD, Ot M19.91 PRIMARY OSTEOARTHRITIS, UNSPECIFIED SITE 08/08/2018 CEASAR SNYDER MD, Ot M54.9 DORSALGIA, UNSPECIFIED 08/08/2018 CEASAR SNYDER MD, Ot S72.141A DISPLACED INTERTROCHANTERIC FRACTURE OF 08/08/2018 CEASAR SNYDER MD Ot W18.00XA STRIKING AGAINST UNSP OBJECT W SUBSEQUEN 08/08/2018 CEASAR SNYDER MD, Ot Z85.43 PERSONAL HISTORY OF MALIGNANT NEOPLASM O 08/08/2018 CEASAR SNYDER MD, Ot Z85.828 PERSONAL HISTORY OF OTHER MALIGNANT NEOP 08/08/2018 CEASAR SNYDER MD, Ot Z95.5 PRESENCE OF CORONARY ANGIOPLASTY IMPLANT 08/08/2018 CEASAR SNYDER MD, Ot E78.5 HYPERLIPIDEMIA, UNSPECIFIED 08/08/2018 CEASAR SNYDER MD, Ot F17.210 NICOTINE DEPENDENCE, CIGARETTES, UNCOMPL 08/08/2018 CEASAR SNYDER MD, Ot F17.290 NICOTINE DEPENDENCE, OTHER TOBACCO PRODU 08/08/2018 CEASAR SNYDER MD, Ot F31.9 BIPOLAR DISORDER, UNSPECIFIED 08/08/2018 CEASAR SNYDER MD, Ot F41.0 PANIC DISORDER [EPISODIC PAROXYSMAL ANXI 08/08/2018 CEASAR SNYDER MD, Ot F43.10 POST-TRAUMATIC STRESS DISORDER, UNSPECIF 08/08/2018 CEASAR SNYDER MD, Ot F51.3 SLEEPWALKING [SOMNAMBULISM] 08/08/2018 CEASAR SNYDER MD, Ot G25.81 RESTLESS LEGS SYNDROME 08/08/2018 CEASAR SNYDER MD Ot G89.4 CHRONIC PAIN SYNDROME 08/08/2018 CEASAR SNYDER MD, Ot 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 08/08/2018 CEASAR SNYDER MD Ot I10 ESSENTIAL (PRIMARY) HYPERTENSION 08/08/2018 CEASAR SNYDER MD, Ot 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 08/08/2018 CEASAR SNYDER MD, Ot I25.2 OLD MYOCARDIAL INFARCTION 08/08/2018 CEASAR SNYDER MD Ot I70.0 ATHEROSCLEROSIS OF [place] 08/08/2018 CEASAR SNYDER MD, Ot I73.9 PERIPHERAL VASCULAR DISEASE, UNSPECIFIED 08/08/2018 CEASAR SNYDER MD, Ot J44.9 CHRONIC OBSTRUCTIVE PULMONARY DISEASE, U 08/08/2018 CEASAR SNYDER MD, Ot J45.30 MILD PERSISTENT ASTHMA, UNCOMPLICATED 08/08/2018 CEASAR SNYDER MD, Ot K21.9 GASTRO-ESOPHAGEAL REFLUX DISEASE WITHOUT 08/08/2018 CEASAR SNYDER MD, Ot K50.90 CROHN'S DISEASE, UNSPECIFIED, WITHOUT CO 08/08/2018 CEASAR SNYDER MD, Ot M19.91 PRIMARY OSTEOARTHRITIS, UNSPECIFIED SITE 08/08/2018 CEASAR SNYDER MD Ot M54.9 DORSALGIA, UNSPECIFIED 08/08/2018 CEASAR SNYDER MD, Ot S72.141A DISPLACED INTERTROCHANTERIC FRACTURE OF 08/08/2018 CEASAR SNYDER MD Ot W18.00XA STRIKING AGAINST UNSP OBJECT W SUBSEQUEN 08/08/2018 CEASAR SNYDER MD, Ot Z85.43 PERSONAL HISTORY OF MALIGNANT NEOPLASM O 08/08/2018 CEASAR SNYDER MD, Ot Z85.828 PERSONAL HISTORY OF OTHER MALIGNANT NEOP 08/08/2018 CEASAR SNYDER MD, Ot Z95.5 PRESENCE OF CORONARY ANGIOPLASTY IMPLANT 08/09/2018 CEASAR SNYDER MD, Ot E78.5 HYPERLIPIDEMIA, UNSPECIFIED 08/09/2018 CEASAR SNYDER MD, Ot F17.210 NICOTINE DEPENDENCE, CIGARETTES, UNCOMPL 08/09/2018 CEASAR SNYDER MD, Ot F17.290 NICOTINE DEPENDENCE, OTHER TOBACCO PRODU 08/09/2018 CEASAR SNYDER MD Ot F31.9 BIPOLAR DISORDER, UNSPECIFIED 08/09/2018 CEASAR SYNDER MD, Ot F41.0 PANIC DISORDER [EPISODIC PAROXYSMAL ANXI 08/09/2018 CEASAR SNYDER MD, Ot F43.10 POST-TRAUMATIC STRESS DISORDER, UNSPECIF 08/09/2018 CEASAR SNYDER MD, Ot F51.3 SLEEPWALKING [SOMNAMBULISM] 08/09/2018 CEASAR SNYDER MD, Ot G25.81 RESTLESS LEGS SYNDROME 08/09/2018 CESAAR SNYDER MD Ot G89.4 CHRONIC PAIN SYNDROME 08/09/2018 CEASAR SNYDER MD Ot 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 08/09/2018 CEASAR SNYDER MD Ot I10 ESSENTIAL (PRIMARY) HYPERTENSION 08/09/2018 CEASAR SNYDER MD, Ot 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 08/09/2018 CEASAR SNYDER MD, Ot I25.2 OLD MYOCARDIAL INFARCTION 08/09/2018 CEASAR SNYDER MD Ot I70.0 ATHEROSCLEROSIS OF [place] 08/09/2018 CEASAR SNYDER MD Ot I73.9 PERIPHERAL VASCULAR DISEASE, UNSPECIFIED 08/09/2018 CEASAR SNYDER MD, Ot J44.9 CHRONIC OBSTRUCTIVE PULMONARY DISEASE, U 08/09/2018 LILLIAN SAAVEDRA, CEASAR Donovan Ot J45.30 MILD PERSISTENT ASTHMA, UNCOMPLICATED 08/09/2018 CEASAR SNYDER MD, Ot K21.9 GASTRO-ESOPHAGEAL REFLUX DISEASE WITHOUT 08/09/2018 CEASAR SNYDER MD, Ot K50.90 CROHN'S DISEASE, UNSPECIFIED, WITHOUT CO 08/09/2018 CEASAR SNYDER MD, Ot M19.91 PRIMARY OSTEOARTHRITIS, UNSPECIFIED SITE 08/09/2018 CEASAR SNYDER MD, Ot M54.9 DORSALGIA, UNSPECIFIED 08/09/2018 CEASAR SNYDER MD, Ot S72.141A DISPLACED INTERTROCHANTERIC FRACTURE OF 08/09/2018 CEASAR SNYDER MD Ot W18.00XA STRIKING AGAINST UNSP OBJECT W SUBSEQUEN 08/09/2018 CEASAR SNYDER MD, Ot Z85.43 PERSONAL HISTORY OF MALIGNANT NEOPLASM O 08/09/2018 CEASAR SNYDER MD, Ot Z85.828 PERSONAL HISTORY OF OTHER MALIGNANT NEOP 08/09/2018 CEASAR SNYDER MD Ot Z95.5 PRESENCE OF CORONARY ANGIOPLASTY IMPLANT 08/11/2018 CEASAR SNYDER MD Ot E78.5 HYPERLIPIDEMIA, UNSPECIFIED 08/11/2018 CEASAR SNYDER MD Ot F17.210 NICOTINE DEPENDENCE, CIGARETTES, UNCOMPL 08/11/2018 CEASAR SNYDER MD Ot F17.290 NICOTINE DEPENDENCE, OTHER TOBACCO PRODU 08/11/2018 CEASAR SNYDER MD Ot F31.9 BIPOLAR DISORDER, UNSPECIFIED 08/11/2018 CEASAR SNYDER MD, Ot F41.0 PANIC DISORDER [EPISODIC PAROXYSMAL ANXI 08/11/2018 CEASAR SNYDER MD, Ot F43.10 POST-TRAUMATIC STRESS DISORDER, UNSPECIF 08/11/2018 CEASAR SNYDER MD, Ot F51.3 SLEEPWALKING [SOMNAMBULISM] 08/11/2018 CEASAR SNYDER MD Ot G25.81 RESTLESS LEGS SYNDROME 08/11/2018 CEASAR SNYDER MD Ot G89.4 CHRONIC PAIN SYNDROME 08/11/2018 CEASAR SNYDER MD Ot 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 08/11/2018 CEASAR SNYDER MD Ot I10 ESSENTIAL (PRIMARY) HYPERTENSION 08/11/2018 CEASAR SNYDER MD, Ot 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 08/11/2018 CEASAR SNYDER MD, Ot I25.2 OLD MYOCARDIAL INFARCTION 08/11/2018 CEASAR SNYDER MD, Ot I70.0 ATHEROSCLEROSIS OF [place] 08/11/2018 CEASAR SNYDER MD, Ot I73.9 PERIPHERAL VASCULAR DISEASE, UNSPECIFIED 08/11/2018 CEASAR SNYDER MD, Ot J44.9 CHRONIC OBSTRUCTIVE PULMONARY DISEASE, U 08/11/2018 CEASAR SNYDER MD, Ot J45.30 MILD PERSISTENT ASTHMA, UNCOMPLICATED 08/11/2018 CEASAR SNYDER MD, Ot K21.9 GASTRO-ESOPHAGEAL REFLUX DISEASE WITHOUT 08/11/2018 CEASAR SNYDER MD, Ot K50.90 CROHN'S DISEASE, UNSPECIFIED, WITHOUT CO 08/11/2018 CEASAR SNYDER MD, Ot M19.91 PRIMARY OSTEOARTHRITIS, UNSPECIFIED SITE 08/11/2018 CEASAR SNYDER MD, Ot M54.9 DORSALGIA, UNSPECIFIED 08/11/2018 CEASAR SNYDER MD, Ot S72.141A DISPLACED INTERTROCHANTERIC FRACTURE OF 08/11/2018 CEASAR SNYDER MD Ot W18.00XA STRIKING AGAINST UNSP OBJECT W SUBSEQUEN 08/11/2018 CEASAR SNYDER MD, Ot Z85.43 PERSONAL HISTORY OF MALIGNANT NEOPLASM O 08/11/2018 CEASAR SNYDER MD, Ot Z85.828 PERSONAL HISTORY OF OTHER MALIGNANT NEOP 08/11/2018 CEASAR SNYDER MD, Ot Z95.5 PRESENCE OF CORONARY ANGIOPLASTY IMPLANT 08/12/2018 CEASAR SNYDER MD, Ot E78.5 HYPERLIPIDEMIA, UNSPECIFIED 08/12/2018 CEASAR SNYDER MD, Ot E83.41 HYPERMAGNESEMIA 08/12/2018 CEASAR SNYDER MD, Ot E83.42 HYPOMAGNESEMIA 08/12/2018 CEASAR SNYDER MD, Ot E83.51 HYPOCALCEMIA 08/12/2018 CEASAR SNYDER MD, Ot E87.1 HYPO-OSMOLALITY AND HYPONATREMIA 08/12/2018 CEASAR SNYDER MD, Ot E87.5 HYPERKALEMIA 08/12/2018 CEASAR SNYDER MD, Ot F17.210 NICOTINE DEPENDENCE, CIGARETTES, UNCOMPL 08/12/2018 CEASAR SNYDER MD Ot F17.290 NICOTINE DEPENDENCE, OTHER TOBACCO PRODU 08/12/2018 CEASAR SNYDER MD, Ot F31.9 BIPOLAR DISORDER, UNSPECIFIED 08/12/2018 CEASAR SNYDER MD, Ot F41.0 PANIC DISORDER [EPISODIC PAROXYSMAL ANXI 08/12/2018 CEASAR SNYDER MD, Ot F43.10 POST-TRAUMATIC STRESS DISORDER, UNSPECIF 08/12/2018 CEASAR SNYDER MD, Ot F51.3 SLEEPWALKING [SOMNAMBULISM] 08/12/2018 CEASAR SNYDER MD, Ot G25.81 RESTLESS LEGS SYNDROME 08/12/2018 CEASAR SNYDER MD, Ot G89.4 CHRONIC PAIN SYNDROME 08/12/2018 CEASAR SNYDER MD, Ot 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 08/12/2018 CEASAR SNYDER MD Ot I10 ESSENTIAL (PRIMARY) HYPERTENSION 08/12/2018 CEASAR SNYDER MD, Ot 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 08/12/2018 CEASAR SNYDER MD, Ot I25.2 OLD MYOCARDIAL INFARCTION 08/12/2018 CEASAR SNYDER MD Ot I70.0 ATHEROSCLEROSIS OF [place] 08/12/2018 CEASAR SNYDER MD Ot I73.9 PERIPHERAL VASCULAR DISEASE, UNSPECIFIED 08/12/2018 CEASAR SNYDER MD, Ot J18.9 PNEUMONIA, UNSPECIFIED ORGANISM 08/12/2018 CEASAR SNYDER MD, Ot J44.0 CHRONIC OBSTRUCTIVE PULMON DISEASE W ACU 08/12/2018 CEASAR SNYDER MD, Ot J44.9 CHRONIC OBSTRUCTIVE PULMONARY DISEASE, U 08/12/2018 CEASAR SNYDER MD, Ot J45.30 MILD PERSISTENT ASTHMA, UNCOMPLICATED 08/12/2018 CEASAR SNYDER MD Ot K21.9 GASTRO-ESOPHAGEAL REFLUX DISEASE WITHOUT 08/12/2018 CEASAR SNYDER MD, Ot K50.90 CROHN'S DISEASE, UNSPECIFIED, WITHOUT CO 08/12/2018 CEASAR SNYDER MD, Ot M19.91 PRIMARY OSTEOARTHRITIS, UNSPECIFIED SITE 08/12/2018 CEASAR SNYDER MD Ot M54.9 DORSALGIA, UNSPECIFIED 08/12/2018 CEASAR SNYDER MD, Ot S72.141A DISPLACED INTERTROCHANTERIC FRACTURE OF 08/12/2018 CEASAR SNYDER MD, Ot T84.84XA PAIN DUE TO INTERNAL ORTHOPEDIC PROSTH D 08/12/2018 CEASAR SNYDER MD, Ot W18.00XA STRIKING AGAINST UNSP OBJECT W SUBSEQUEN 08/12/2018 CEASAR SNYDER MD, Ot Y92.013 BEDROOM OF SINGLE-FAMILY (PRIVATE) HOUSE 08/12/2018 CEASAR SNYDER MD, Ot Z85.43 PERSONAL HISTORY OF MALIGNANT NEOPLASM O 08/12/2018 CEASAR SNYDER MD, Ot Z85.828 PERSONAL HISTORY OF OTHER MALIGNANT NEOP 08/12/2018 CEASAR SNYDER MD, Ot Z95.5 PRESENCE OF CORONARY ANGIOPLASTY IMPLANT Procedures Code Description Performed By Performed On [id number] REPOSITION R UP FEMUR WITH INTRAMED FIX, 08/03/2018 [id number] REPOSITION R UP FEMUR WITH INTRAMED FIX, 08/03/2018 [id number] REVISION OF INT FIX IN R UP FEMUR, OPEN 08/11/2018 Results Test Result Range Comp. Metabolic Panel [...] - 07:09 MRSA SCREEN RESULT MRSA ISOLATED [facility] Automated blood complete blood count (hemogram) [...] 09:55 MRSA SCREEN RESULT MRSA ISOLATED NRG Complete blood count (CBC) with automated white [...] measurement by glucometer (mass/volume) 95 mg/dL 70-110 Complete blood count (CBC) with automated white blood cell (WBC) differential - 08/03/18 00:20 Blood leukocytes automated count (number/volume) 17.4 10*3/uL 4.3-11.0 Blood erythrocytes automated count (number/volume) 4.20 10*6/uL 4.35-5.85 Venous blood hemoglobin measurement (mass/volume) 13.5 g/dL 11.5-16.0 Blood hematocrit (volume fraction) 41 % 35-52 Automated erythrocyte mean corpuscular volume 97 [foz_us] 80-99 Automated erythrocyte mean corpuscular hemoglobin (mass per erythrocyte) 32 pg 25-34 Automated erythrocyte mean corpuscular hemoglobin concentration measurement ( mass/volume) 33 g/dL 32-36 Automated erythrocyte distribution width ratio 14.7 % 10.0-14.5 Automated blood platelet count (count/volume) 170 10*3/uL 130-400 Automated blood platelet mean volume measurement 10.5 [foz_us] 7.4-10.4 Automated blood neutrophils/100 leukocytes 91 % 42-75 Automated blood lymphocytes/100 leukocytes 4 % 12-44 Blood monocytes/100 leukocytes 5 % 0-12 Automated blood eosinophils/100 leukocytes 0 % 0-10 Automated blood basophils/100 leukocytes 0 % 0-10 Blood neutrophils automated count (number/volume) 15.9 10*3 1.8-7.8 Blood lymphocytes automated count (number/volume) 0.7 10*3 1.0-4.0 Blood monocytes automated count (number/volume) 0.8 10*3 0.0-1.0 Automated eosinophil count 0.0 10*3/uL 0.0-0.3 Automated blood basophil count (count/volume) 0.0 10*3/uL 0.0-0.1 PT panel in platelet poor plasma by coagulation assay - 08/03/18 00:20 Prothrombin time (PT) in platelet poor plasma by coagulation assay 14.7 s 12.2-14.7 INR in platelet poor plasma or blood by coagulation assay 1.2 0.8-1.4 Activated partial thromboplastin time (aPTT) in platelet poor plasma bycoagulation assay - 08/03/18 00:20 Activated partial thromboplastin time (aPTT) in platelet poor plasma bycoagulation assay 34 s 24-35 Comprehensive metabolic panel - 08/03/18 00:20 Serum or plasma sodium measurement (moles/volume) 136 mmol/L 135-145 Serum or plasma potassium measurement (moles/volume) 4.4 mmol/L 3.6-5.0 Serum or plasma chloride measurement (moles/volume) 99 mmol/L 98-107 Carbon dioxide 28 mmol/L 21-32 Serum or plasma anion gap determination (moles/volume) 9 mmol/L 5-14 Serum or plasma urea nitrogen measurement (mass/volume) 19 mg/dL 7-18 Serum or plasma creatinine measurement (mass/volume) 0.92 mg/dL 0.60-1.30 Serum or plasma urea nitrogen/creatinine mass ratio 21 NRG Serum or plasma creatinine measurement with calculation of estimated glomerular filtration rate > NRG Serum or plasma glucose measurement (mass/volume) 104 mg/dL 70-105 Serum or plasma calcium measurement (mass/volume) 8.2 mg/dL 8.5-10.1 Serum or plasma total bilirubin measurement (mass/volume) 0.3 mg/dL 0.1-1.0 Serum or plasma alkaline phosphatase measurement (enzymatic activity/volume) 75 U/L 40-136 Serum or plasma aspartate aminotransferase measurement (enzymatic activity/ volume) 27 U/L 5-34 Serum or plasma alanine aminotransferase measurement (enzymatic activity/volume ) 14 U/L 0-55 Serum or plasma protein measurement (mass/volume) 6.2 g/dL 6.4-8.2 Serum or plasma albumin measurement (mass/volume) 3.2 g/dL 3.2-4.5 CALCIUM CORRECTED 8.8 mg/dL 8.5-10.1 Magnesium - 08/03/18 00:20 Magnesium 2.3 mg/dL 1.8-2.4 Serum or plasma thyrotropin measurement by detection limit <=0.05 miu/l (units/ volume) - 08/03/18 00:20 Serum or plasma thyrotropin measurement by detection limit <=0.05 miu/l (units/ volume) 0.87 u[iU]/mL 0.35-4.94 Serum or plasma ethanol measurement (mass/volume) - 08/03/18 00:20 Serum or plasma ethanol measurement (mass/volume) < mg/dL <10 Blood manual differential performed detection - 08/03/18 00:20 Blood monocytes/100 leukocytes 6 % NRG Manual blood segmented neutrophils/100 leukocytes 89 % NRG Manual blood lymphocytes/100 leukocytes 5 % NRG Urine drug screening test - 08/03/18 00:32 Urine phencyclidine detection by screening method NEGATIVE NEGATIVE Urine benzodiazepines detection by screening method POSITIVE NEGATIVE Urine cocaine detection NEGATIVE NEGATIVE Urine amphetamines detection by screening method NEGATIVE NEGATIVE Urine methamphetamine detection by screening method NEGATIVE NEGATIVE Urine cannabinoids detection by screening method NEGATIVE NEGATIVE Urine opiates detection by screening method POSITIVE NEGATIVE Urine barbiturates detection NEGATIVE NEGATIVE Screening urine tricyclic antidepressants detection NEGATIVE NEGATIVE Urine methadone detection by screening method NEGATIVE NEGATIVE Urine oxycodone detection NEGATIVE NEGATIVE Urine propoxyphene detection NEGATIVE NEGATIVE Complete urinalysis with reflex to culture - 08/03/18 00:32 Urine color determination YELLOW NRG Urine clarity determination CLEAR NRG Urine pH measurement by test strip 7 5-9 Specific gravity of urine by test strip 1.010 1.016- 1.022 Urine protein assay by test strip, semi-quantitative NEGATIVE NEGATIVE Urine glucose detection by automated test strip NEGATIVE NEGATIVE Erythrocytes detection in urine sediment by light microscopy 1+ NEGATIVE Urine ketones detection by automated test strip NEGATIVE NEGATIVE Urine nitrite detection by test strip NEGATIVE NEGATIVE Urine total bilirubin detection by test strip NEGATIVE NEGATIVE Urine urobilinogen measurement by automated test strip (mass/volume) NORMAL NORMAL Urine leukocyte esterase detection by dipstick NEGATIVE NEGATIVE Automated urine sediment erythrocyte count by microscopy (number/high power field) NONE NRG Automated urine sediment leukocyte count by microscopy (number/high power field ) RARE NRG Bacteria detection in urine sediment by light microscopy TRACE NRG Squamous epithelial cells detection in urine sediment by light microscopy RARE NRG Crystals detection in urine sediment by light microscopy NONE NRG Casts detection in urine sediment by light microscopy NONE NRG Mucus detection in urine sediment by light microscopy NEGATIVE NRG Complete urinalysis with reflex to culture NO NRG Methicillin resistant Staphylococcus aureus (MRSA) screening culture - 03:40 Methicillin resistant Staphylococcus aureus (MRSA) screening culture NEG NRG Complete blood count (CBC) with automated white blood cell (WBC) differential - 08/03/18 05:47 Blood leukocytes automated count (number/volume) 14.7 10*3/uL 4.3-11.0 Blood erythrocytes automated count (number/volume) 4.11 10*6/uL 4.35-5.85 Venous blood hemoglobin measurement (mass/volume) 13.2 g/dL 11.5-16.0 Blood hematocrit (volume fraction) 40 % 35-52 Automated erythrocyte mean corpuscular volume 98 [foz_us] 80-99 Automated erythrocyte mean corpuscular hemoglobin (mass per erythrocyte) 32 pg 25-34 Automated erythrocyte mean corpuscular hemoglobin concentration measurement ( mass/volume) 33 g/dL 32-36 Automated erythrocyte distribution width ratio 14.6 % 10.0-14.5 Automated blood platelet count (count/volume) 155 10*3/uL 130-400 Automated blood platelet mean volume measurement 10.7 [foz_us] 7.4-10.4 Automated blood neutrophils/100 leukocytes 87 % 42-75 Automated blood lymphocytes/100 leukocytes 7 % 12-44 Blood monocytes/100 leukocytes 6 % 0-12 Automated blood eosinophils/100 leukocytes 0 % 0-10 Automated blood basophils/100 leukocytes 0 % 0-10 Blood neutrophils automated count (number/volume) 12.7 10*3 1.8-7.8 Blood lymphocytes automated count (number/volume) 1.1 10*3 1.0-4.0 Blood monocytes automated count (number/volume) 0.8 10*3 0.0-1.0 Automated eosinophil count 0.1 10*3/uL 0.0-0.3 Automated blood basophil count (count/volume) 0.0 10*3/uL 0.0-0.1 Comprehensive metabolic panel - 08/03/18 05:47 Serum or plasma sodium measurement (moles/volume) 137 mmol/L 135-145 Serum or plasma potassium measurement (moles/volume) 4.5 mmol/L 3.6-5.0 Serum or plasma chloride measurement (moles/volume) 102 mmol/L 98-107 Carbon dioxide 27 mmol/L 21-32 Serum or plasma anion gap determination (moles/volume) 8 mmol/L 5-14 Serum or plasma urea nitrogen measurement (mass/volume) 14 mg/dL 7-18 Serum or plasma creatinine measurement (mass/volume) 0.80 mg/dL 0.60-1.30 Serum or plasma urea nitrogen/creatinine mass ratio 18 NRG Serum or plasma creatinine measurement with calculation of estimated glomerular filtration rate > NRG Serum or plasma glucose measurement (mass/volume) 128 mg/dL 70-105 Serum or plasma calcium measurement (mass/volume) 8.1 mg/dL 8.5-10.1 Serum or plasma total bilirubin measurement (mass/volume) 0.3 mg/dL 0.1-1.0 Serum or plasma alkaline phosphatase measurement (enzymatic activity/volume) 71 U/L 40-136 Serum or plasma aspartate aminotransferase measurement (enzymatic activity/ volume) 24 U/L 5-34 Serum or plasma alanine aminotransferase measurement (enzymatic activity/volume ) 12 U/L 0-55 Serum or plasma protein measurement (mass/volume) 6.0 g/dL 6.4-8.2 Serum or plasma albumin measurement (mass/volume) 3.0 g/dL 3.2-4.5 CALCIUM CORRECTED 8.9 mg/dL 8.5-10.1 Automated blood complete blood count (hemogram) panel - 08/04/18 02:59 Blood leukocytes automated count (number/volume) 11.2 10*3/uL 4.3-11.0 Blood erythrocytes automated count (number/volume) 4.08 10*6/uL 4.35-5.85 Venous blood hemoglobin measurement (mass/volume) 12.8 g/dL 11.5-16.0 Blood hematocrit (volume fraction) 40 % 35-52 Automated erythrocyte mean corpuscular volume 99 [foz_us] 80-99 Automated erythrocyte mean corpuscular hemoglobin (mass per erythrocyte) 31 pg 25-34 Automated erythrocyte mean corpuscular hemoglobin concentration measurement ( mass/volume) 32 g/dL 32-36 Automated erythrocyte distribution width ratio 14.7 % 10.0-14.5 Automated blood platelet count (count/volume) 152 10*3/uL 130-400 Automated blood platelet mean volume measurement 10.5 [foz_us] 7.4-10.4 Comprehensive metabolic panel - 08/04/18 02:59 Serum or plasma sodium measurement (moles/volume) 130 mmol/L 135-145 Serum or plasma potassium measurement (moles/volume) 5.4 mmol/L 3.6-5.0 Serum or plasma chloride measurement (moles/volume) 98 mmol/L 98-107 Carbon dioxide 24 mmol/L 21-32 Serum or plasma anion gap determination (moles/volume) 8 mmol/L 5-14 Serum or plasma urea nitrogen measurement (mass/volume) 9 mg/dL 7-18 Serum or plasma creatinine measurement (mass/volume) 0.61 mg/dL 0.60-1.30 Serum or plasma urea nitrogen/creatinine mass ratio 15 NRG Serum or plasma creatinine measurement with calculation of estimated glomerular filtration rate > NRG Serum or plasma glucose measurement (mass/volume) 119 mg/dL 70-105 Serum or plasma calcium measurement (mass/volume) 8.3 mg/dL 8.5-10.1 Serum or plasma total bilirubin measurement (mass/volume) 0.5 mg/dL 0.1-1.0 Serum or plasma alkaline phosphatase measurement (enzymatic activity/volume) 74 U/L 40-136 Serum or plasma aspartate aminotransferase measurement (enzymatic activity/ volume) 20 U/L 5-34 Serum or plasma alanine aminotransferase measurement (enzymatic activity/volume ) 13 U/L 0-55 Serum or plasma protein measurement (mass/volume) 6.1 g/dL 6.4-8.2 Serum or plasma albumin measurement (mass/volume) 3.0 g/dL 3.2-4.5 CALCIUM CORRECTED 9.1 mg/dL 8.5-10.1 Magnesium - 08/04/18 02:59 Magnesium 1.9 mg/dL 1.8-2.4 Automated blood complete blood count (hemogram) panel - 08/05/18 04:20 Blood leukocytes automated count (number/volume) 6.8 10*3/uL 4.3-11.0 Blood erythrocytes automated count (number/volume) 3.57 10*6/uL 4.35-5.85 Venous blood hemoglobin measurement (mass/volume) 11.3 g/dL 11.5-16.0 Blood hematocrit (volume fraction) 34 % 35-52 Automated erythrocyte mean corpuscular volume 96 [foz_us] 80-99 Automated erythrocyte mean corpuscular hemoglobin (mass per erythrocyte) 32 pg 25-34 Automated erythrocyte mean corpuscular hemoglobin concentration measurement ( mass/volume) 33 g/dL 32-36 Automated erythrocyte distribution width ratio 14.0 % 10.0-14.5 Automated blood platelet count (count/volume) 124 10*3/uL 130-400 Automated blood platelet mean volume measurement 10.5 [foz_us] 7.4-10.4 Whole blood basic metabolic panel - 08/05/18 04:20 Serum or plasma sodium measurement (moles/volume) 130 mmol/L 135-145 Serum or plasma potassium measurement (moles/volume) 4.5 mmol/L 3.6-5.0 Serum or plasma chloride measurement (moles/volume) 99 mmol/L 98-107 Carbon dioxide 24 mmol/L 21-32 Serum or plasma anion gap determination (moles/volume) 7 mmol/L 5-14 Serum or plasma urea nitrogen measurement (mass/volume) 10 mg/dL 7-18 Serum or plasma creatinine measurement (mass/volume) 0.55 mg/dL 0.60-1.30 Serum or plasma urea nitrogen/creatinine mass ratio 18 NRG Serum or plasma creatinine measurement with calculation of estimated glomerular filtration rate > NRG Serum or plasma glucose measurement (mass/volume) 79 mg/dL 70-105 Serum or plasma calcium measurement (mass/volume) 8.2 mg/dL 8.5-10.1 Magnesium - 08/05/18 04:20 Magnesium 1.7 mg/dL 1.8-2.4 Complete blood count (CBC) with automated white blood cell (WBC) differential - 08/06/18 05:15 Blood leukocytes automated count (number/volume) 5.9 10*3/uL 4.3-11.0 Blood erythrocytes automated count (number/volume) 3.92 10*6/uL 4.35-5.85 Venous blood hemoglobin measurement (mass/volume) 11.9 g/dL 11.5-16.0 Blood hematocrit (volume fraction) 37 % 35-52 Automated erythrocyte mean corpuscular volume 94 [foz_us] 80-99 Automated erythrocyte mean corpuscular hemoglobin (mass per erythrocyte) 30 pg 25-34 Automated erythrocyte mean corpuscular hemoglobin concentration measurement ( mass/volume) 32 g/dL 32-36 Automated erythrocyte distribution width ratio 14.0 % 10.0-14.5 Automated blood platelet count (count/volume) 189 10*3/uL 130-400 Automated blood platelet mean volume measurement 9.9 [foz_us] 7.4-10.4 Automated blood neutrophils/100 leukocytes 74 % 42-75 Automated blood lymphocytes/100 leukocytes 16 % 12-44 Blood monocytes/100 leukocytes 9 % 0-12 Automated blood eosinophils/100 leukocytes 1 % 0-10 Automated blood basophils/100 leukocytes 0 % 0-10 Blood neutrophils automated count (number/volume) 4.4 10*3 1.8-7.8 Blood lymphocytes automated count (number/volume) 0.9 10*3 1.0-4.0 Blood monocytes automated count (number/volume) 0.6 10*3 0.0-1.0 Automated eosinophil count 0.1 10*3/uL 0.0-0.3 Automated blood basophil count (count/volume) 0.0 10*3/uL 0.0-0.1 Whole blood basic metabolic panel - 08/06/18 05:15 Serum or plasma sodium measurement (moles/volume) 136 mmol/L 135-145 Serum or plasma potassium measurement (moles/volume) 4.1 mmol/L 3.6-5.0 Serum or plasma chloride measurement (moles/volume) 102 mmol/L 98-107 Carbon dioxide 25 mmol/L 21-32 Serum or plasma anion gap determination (moles/volume) 9 mmol/L 5-14 Serum or plasma urea nitrogen measurement (mass/volume) 6 mg/dL 7-18 Serum or plasma creatinine measurement (mass/volume) 0.60 mg/dL 0.60-1.30 Serum or plasma urea nitrogen/creatinine mass ratio 10 NRG Serum or plasma creatinine measurement with calculation of estimated glomerular filtration rate > NRG Serum or plasma glucose measurement (mass/volume) 82 mg/dL 70-105 Serum or plasma calcium measurement (mass/volume) 8.5 mg/dL 8.5-10.1 Magnesium - 08/06/18 05:15 Magnesium 1.7 mg/dL 1.8-2.4 Complete blood count (CBC) with automated white blood cell (WBC) differential - 08/07/18 05:55 Blood leukocytes automated count (number/volume) 4.7 10*3/uL 4.3-11.0 Blood erythrocytes automated count (number/volume) 3.29 10*6/uL 4.35-5.85 Venous blood hemoglobin measurement (mass/volume) 10.4 g/dL 11.5-16.0 Blood hematocrit (volume fraction) 31 % 35-52 Automated erythrocyte mean corpuscular volume 95 [foz_us] 80-99 Automated erythrocyte mean corpuscular hemoglobin (mass per erythrocyte) 32 pg 25-34 Automated erythrocyte mean corpuscular hemoglobin concentration measurement ( mass/volume) 33 g/dL 32-36 Automated erythrocyte distribution width ratio 13.8 % 10.0-14.5 Automated blood platelet count (count/volume) 171 10*3/uL 130-400 Automated blood platelet mean volume measurement 10.0 [foz_us] 7.4-10.4 Automated blood neutrophils/100 leukocytes 63 % 42-75 Automated blood lymphocytes/100 leukocytes 20 % 12-44 Blood monocytes/100 leukocytes 15 % 0-12 Automated blood eosinophils/100 leukocytes 2 % 0-10 Automated blood basophils/100 leukocytes 0 % 0-10 Blood neutrophils automated count (number/volume) 3.0 10*3 1.8-7.8 Blood lymphocytes automated count (number/volume) 0.9 10*3 1.0-4.0 Blood monocytes automated count (number/volume) 0.7 10*3 0.0-1.0 Automated eosinophil count 0.1 10*3/uL 0.0-0.3 Automated blood basophil count (count/volume) 0.0 10*3/uL 0.0-0.1 Whole blood basic metabolic panel - 08/07/18 05:55 Serum or plasma sodium measurement (moles/volume) 136 mmol/L 135-145 Serum or plasma potassium measurement (moles/volume) 4.3 mmol/L 3.6-5.0 Serum or plasma chloride measurement (moles/volume) 102 mmol/L 98-107 Carbon dioxide 26 mmol/L 21-32 Serum or plasma anion gap determination (moles/volume) 8 mmol/L 5-14 Serum or plasma urea nitrogen measurement (mass/volume) 4 mg/dL 7-18 Serum or plasma creatinine measurement (mass/volume) 0.55 mg/dL 0.60-1.30 Serum or plasma urea nitrogen/creatinine mass ratio 7 NRG Serum or plasma creatinine measurement with calculation of estimated glomerular filtration rate > NRG Serum or plasma glucose measurement (mass/volume) 109 mg/dL 70-105 Serum or plasma calcium measurement (mass/volume) 8.3 mg/dL 8.5-10.1 Magnesium - 08/07/18 05:55 Magnesium 1.8 mg/dL 1.8-2.4 Complete blood count (CBC) with automated white blood cell (WBC) differential - 08/08/18 04:16 Blood leukocytes automated count (number/volume) 5.6 10*3/uL 4.3-11.0 Blood erythrocytes automated count (number/volume) 3.68 10*6/uL 4.35-5.85 Venous blood hemoglobin measurement (mass/volume) 11.5 g/dL 11.5-16.0 Blood hematocrit (volume fraction) 35 % 35-52 Automated erythrocyte mean corpuscular volume 95 [foz_us] 80-99 Automated erythrocyte mean corpuscular hemoglobin (mass per erythrocyte) 31 pg 25-34 Automated erythrocyte mean corpuscular hemoglobin concentration measurement ( mass/volume) 33 g/dL 32-36 Automated erythrocyte distribution width ratio 14.1 % 10.0-14.5 Automated blood platelet count (count/volume) 118 10*3/uL 130-400 Automated blood platelet mean volume measurement 9.9 [foz_us] 7.4-10.4 Automated blood neutrophils/100 leukocytes 70 % 42-75 Automated blood lymphocytes/100 leukocytes 17 % 12-44 Blood monocytes/100 leukocytes 11 % 0-12 Automated blood eosinophils/100 leukocytes 3 % 0-10 Automated blood basophils/100 leukocytes 0 % 0-10 Blood neutrophils automated count (number/volume) 3.9 10*3 1.8-7.8 Blood lymphocytes automated count (number/volume) 0.9 10*3 1.0-4.0 Blood monocytes automated count (number/volume) 0.6 10*3 0.0-1.0 Automated eosinophil count 0.2 10*3/uL 0.0-0.3 Automated blood basophil count (count/volume) 0.0 10*3/uL 0.0-0.1 Whole blood basic metabolic panel - 08/08/18 04:16 Serum or plasma sodium measurement (moles/volume) 133 mmol/L 135-145 Serum or plasma potassium measurement (moles/volume) 5.9 mmol/L 3.6-5.0 Serum or plasma chloride measurement (moles/volume) 100 mmol/L 98-107 Carbon dioxide 23 mmol/L 21-32 Serum or plasma anion gap determination (moles/volume) 10 mmol/L 5-14 Serum or plasma urea nitrogen measurement (mass/volume) 5 mg/dL 7-18 Serum or plasma creatinine measurement (mass/volume) 0.56 mg/dL 0.60-1.30 Serum or plasma urea nitrogen/creatinine mass ratio 9 NRG Serum or plasma creatinine measurement with calculation of estimated glomerular filtration rate > NRG Serum or plasma glucose measurement (mass/volume) 99 mg/dL 70-105 Serum or plasma calcium measurement (mass/volume) 8.5 mg/dL 8.5-10.1 Magnesium - 08/08/18 04:16 Magnesium 2.9 mg/dL 1.8-2.4 Serum or plasma C reactive protein measurement (mass/volume) - 08/08/18 04:16 Serum or plasma C reactive protein measurement (mass/volume) 6.35 mg /dL 0.00-0.50 Complete blood count (CBC) with automated white blood cell (WBC) differential - 08/09/18 03:05 Blood leukocytes automated count (number/volume) 6.2 10*3/uL 4.3-11.0 Blood erythrocytes automated count (number/volume) 3.54 10*6/uL 4.35-5.85 Venous blood hemoglobin measurement (mass/volume) 11.0 g/dL 11.5-16.0 Blood hematocrit (volume fraction) 33 % 35-52 Automated erythrocyte mean corpuscular volume 93 [foz_us] 80-99 Automated erythrocyte mean corpuscular hemoglobin (mass per erythrocyte) 31 pg 25-34 Automated erythrocyte mean corpuscular hemoglobin concentration measurement ( mass/volume) 33 g/dL 32-36 Automated erythrocyte distribution width ratio 13.8 % 10.0-14.5 Automated blood platelet count (count/volume) 263 10*3/uL 130-400 Automated blood platelet mean volume measurement 10.0 [foz_us] 7.4-10.4 Automated blood neutrophils/100 leukocytes 79 % 42-75 Automated blood lymphocytes/100 leukocytes 13 % 12-44 Blood monocytes/100 leukocytes 8 % 0-12 Automated blood eosinophils/100 leukocytes 1 % 0-10 Automated blood basophils/100 leukocytes 0 % 0-10 Blood neutrophils automated count (number/volume) 4.9 10*3 1.8-7.8 Blood lymphocytes automated count (number/volume) 0.8 10*3 1.0-4.0 Blood monocytes automated count (number/volume) 0.5 10*3 0.0-1.0 Automated eosinophil count 0.0 10*3/uL 0.0-0.3 Automated blood basophil count (count/volume) 0.0 10*3/uL 0.0-0.1 Whole blood basic metabolic panel - 08/09/18 03:05 Serum or plasma sodium measurement (moles/volume) 136 mmol/L 135-145 Serum or plasma potassium measurement (moles/volume) 3.5 mmol/L 3.6-5.0 Serum or plasma chloride measurement (moles/volume) 100 mmol/L 98-107 Carbon dioxide 26 mmol/L 21-32 Serum or plasma anion gap determination (moles/volume) 10 mmol/L 5-14 Serum or plasma urea nitrogen measurement (mass/volume) 9 mg/dL 7-18 Serum or plasma creatinine measurement (mass/volume) 0.52 mg/dL 0.60-1.30 Serum or plasma urea nitrogen/creatinine mass ratio 17 NRG Serum or plasma creatinine measurement with calculation of estimated glomerular filtration rate > NRG Serum or plasma glucose measurement (mass/volume) 112 mg/dL 70-105 Serum or plasma calcium measurement (mass/volume) 8.5 mg/dL 8.5-10.1 Magnesium - 08/09/18 03:05 Magnesium 1.6 mg/dL 1.8-2.4 Serum or plasma C reactive protein measurement (mass/volume) - 08/09/18 03:05 Serum or plasma C reactive protein measurement (mass/volume) 4.32 mg /dL 0.00-0.50 Vancomycin trough - 08/09/18 11:48 Vancomycin trough 1.9 ug/mL 10.0-20.0 Complete blood count (CBC) with automated white blood cell (WBC) differential - 08/10/18 02:50 Blood leukocytes automated count (number/volume) 7.1 10*3/uL 4.3-11.0 Blood erythrocytes automated count (number/volume) 3.35 10*6/uL 4.35-5.85 Venous blood hemoglobin measurement (mass/volume) 10.3 g/dL 11.5-16.0 Blood hematocrit (volume fraction) 32 % 35-52 Automated erythrocyte mean corpuscular volume 94 [foz_us] 80-99 Automated erythrocyte mean corpuscular hemoglobin (mass per erythrocyte) 31 pg 25-34 Automated erythrocyte mean corpuscular hemoglobin concentration measurement ( mass/volume) 33 g/dL 32-36 Automated erythrocyte distribution width ratio 14.2 % 10.0-14.5 Automated blood platelet count (count/volume) 300 10*3/uL 130-400 Automated blood platelet mean volume measurement 9.7 [foz_us] 7.4-10.4 Automated blood neutrophils/100 leukocytes 73 % 42-75 Automated blood lymphocytes/100 leukocytes 17 % 12-44 Blood monocytes/100 leukocytes 10 % 0-12 Automated blood eosinophils/100 leukocytes 0 % 0-10 Automated blood basophils/100 leukocytes 0 % 0-10 Blood neutrophils automated count (number/volume) 5.2 10*3 1.8-7.8 Blood lymphocytes automated count (number/volume) 1.2 10*3 1.0-4.0 Blood monocytes automated count (number/volume) 0.7 10*3 0.0-1.0 Automated eosinophil count 0.0 10*3/uL 0.0-0.3 Automated blood basophil count (count/volume) 0.0 10*3/uL 0.0-0.1 Whole blood basic metabolic panel - 08/10/18 02:50 Serum or plasma sodium measurement (moles/volume) 135 mmol/L 135-145 Serum or plasma potassium measurement (moles/volume) 3.3 mmol/L 3.6-5.0 Serum or plasma chloride measurement (moles/volume) 102 mmol/L 98-107 Carbon dioxide 26 mmol/L 21-32 Serum or plasma anion gap determination (moles/volume) 7 mmol/L 5-14 Serum or plasma urea nitrogen measurement (mass/volume) 11 mg/dL 7-18 Serum or plasma creatinine measurement (mass/volume) 0.57 mg/dL 0.60-1.30 Serum or plasma urea nitrogen/creatinine mass ratio 19 NRG Serum or plasma creatinine measurement with calculation of estimated glomerular filtration rate > NRG Serum or plasma glucose measurement (mass/volume) 87 mg/dL 70-105 Serum or plasma calcium measurement (mass/volume) 8.1 mg/dL 8.5-10.1 Magnesium - 08/10/18 02:50 Magnesium 2.0 mg/dL 1.8-2.4 Serum or plasma C reactive protein measurement (mass/volume) - 08/10/18 02:50 Serum or plasma C reactive protein measurement (mass/volume) 2.47 mg /dL 0.00-0.50 PT panel in platelet poor plasma by coagulation assay - 08/11/18 03:47 Prothrombin time (PT) in platelet poor plasma by coagulation assay 13.5 s 12.2-14.7 INR in platelet poor plasma or blood by coagulation assay 1.0 0.8-1.4 Complete blood count (CBC) with automated white blood cell (WBC) differential - 08/11/18 03:49 Blood leukocytes automated count (number/volume) 6.1 10*3/uL 4.3-11.0 Blood erythrocytes automated count (number/volume) 3.05 10*6/uL 4.35-5.85 Venous blood hemoglobin measurement (mass/volume) 9.8 g/dL 11.5-16.0 Blood hematocrit (volume fraction) 29 % 35-52 Automated erythrocyte mean corpuscular volume 95 [foz_us] 80-99 Automated erythrocyte mean corpuscular hemoglobin (mass per erythrocyte) 32 pg 25-34 Automated erythrocyte mean corpuscular hemoglobin concentration measurement ( mass/volume) 34 g/dL 32-36 Automated erythrocyte distribution width ratio 14.0 % 10.0-14.5 Automated blood platelet count (count/volume) 314 10*3/uL 130-400 Automated blood platelet mean volume measurement 9.8 [foz_us] 7.4-10.4 Automated blood neutrophils/100 leukocytes 70 % 42-75 Automated blood lymphocytes/100 leukocytes 20 % 12-44 Blood monocytes/100 leukocytes 9 % 0-12 Automated blood eosinophils/100 leukocytes 1 % 0-10 Automated blood basophils/100 leukocytes 0 % 0-10 Blood neutrophils automated count (number/volume) 4.3 10*3 1.8-7.8 Blood lymphocytes automated count (number/volume) 1.2 10*3 1.0-4.0 Blood monocytes automated count (number/volume) 0.5 10*3 0.0-1.0 Automated eosinophil count 0.1 10*3/uL 0.0-0.3 Automated blood basophil count (count/volume) 0.0 10*3/uL 0.0-0.1 Whole blood basic metabolic panel - 08/11/18 03:49 Serum or plasma sodium measurement (moles/volume) 136 mmol/L 135-145 Serum or plasma potassium measurement (moles/volume) 3.6 mmol/L 3.6-5.0 Serum or plasma chloride measurement (moles/volume) 102 mmol/L 98-107 Carbon dioxide 26 mmol/L 21-32 Serum or plasma anion gap determination (moles/volume) 8 mmol/L 5-14 Serum or plasma urea nitrogen measurement (mass/volume) 15 mg/dL 7-18 Serum or plasma creatinine measurement (mass/volume) 0.52 mg/dL 0.60-1.30 Serum or plasma urea nitrogen/creatinine mass ratio 29 NRG Serum or plasma creatinine measurement with calculation of estimated glomerular filtration rate > NRG Serum or plasma glucose measurement (mass/volume) 83 mg/dL 70-105 Serum or plasma calcium measurement (mass/volume) 8.2 mg/dL 8.5-10.1 Magnesium - 08/11/18 03:49 Magnesium 1.7 mg/dL 1.8-2.4 Blood type T Indirect antibody screen panel - 08/11/18 05:50 ABO+Rh group OP [facility] Transfusion band number [id number] [facility] Blood group antibody screen NEGATIVE [facility] Complete blood count (CBC) with automated white blood cell (WBC) differential - 08/12/18 05:40 Blood leukocytes automated count (number/volume) 7.1 10*3/uL 4.3-11.0 Blood erythrocytes automated count (number/volume) 3.55 10*6/uL 4.35-5.85 Venous blood hemoglobin measurement (mass/volume) 11.0 g/dL 11.5-16.0 Blood hematocrit (volume fraction) 34 % 35-52 Automated erythrocyte mean corpuscular volume 97 [foz_us] 80-99 Automated erythrocyte mean corpuscular hemoglobin (mass per erythrocyte) 31 pg 25-34 Automated erythrocyte mean corpuscular hemoglobin concentration measurement ( mass/volume) 32 g/dL 32-36 Automated erythrocyte distribution width ratio 14.4 % 10.0-14.5 Automated blood platelet count (count/volume) 378 10*3/uL 130-400 Automated blood platelet mean volume measurement 9.8 [foz_us] 7.4-10.4 Automated blood neutrophils/100 leukocytes 66 % 42-75 Automated blood lymphocytes/100 leukocytes 24 % 12-44 Blood monocytes/100 leukocytes 6 % 0-12 Automated blood eosinophils/100 leukocytes 4 % 0-10 Automated blood basophils/100 leukocytes 1 % 0-10 Blood neutrophils automated count (number/volume) 4.7 10*3 1.8-7.8 Blood lymphocytes automated count (number/volume) 1.7 10*3 1.0-4.0 Blood monocytes automated count (number/volume) 0.4 10*3 0.0-1.0 Automated eosinophil count 0.3 10*3/uL 0.0-0.3 Automated blood basophil count (count/volume) 0.0 10*3/uL 0.0-0.1 Whole blood basic metabolic panel - 08/12/18 05:40 Serum or plasma sodium measurement (moles/volume) 136 mmol/L 135-145 Serum or plasma potassium measurement (moles/volume) 3.5 mmol/L 3.6-5.0 Serum or plasma chloride measurement (moles/volume) 101 mmol/L 98-107 Carbon dioxide 25 mmol/L 21-32 Serum or plasma anion gap determination (moles/volume) 10 mmol/L 5-14 Serum or plasma urea nitrogen measurement (mass/volume) 12 mg/dL 7-18 Serum or plasma creatinine measurement (mass/volume) 0.56 mg/dL 0.60-1.30 Serum or plasma urea nitrogen/creatinine mass ratio 21 NRG Serum or plasma creatinine measurement with calculation of estimated glomerular filtration rate > NRG Serum or plasma glucose measurement (mass/volume) 47 mg/dL 70-105 Serum or plasma calcium measurement (mass/volume) 8.6 mg/dL 8.5-10.1 Magnesium - 08/12/18 05:40 Magnesium 2.1 mg/dL 1.8-2.4 Capillary blood glucose measurement by glucometer (mass/volume) - 08/12/18 07: 40 Capillary blood glucose measurement by glucometer (mass/volume) 71 mg/dL 70-110 Automated blood complete blood count (hemogram) panel - 11/18/18 07:15 Blood leukocytes automated count (number/volume) 14.6 10*3/uL 4.3-11.0 Blood erythrocytes automated count (number/volume) 4.97 10*6/uL 4.35-5.85 Venous blood hemoglobin measurement (mass/volume) 14.6 g/dL 11.5-16.0 Blood hematocrit (volume fraction) 44 % 35-52 Automated erythrocyte mean corpuscular volume 89 [foz_us] 80-99 Automated erythrocyte mean corpuscular hemoglobin (mass per erythrocyte) 29 pg 25-34 Automated erythrocyte mean corpuscular hemoglobin concentration measurement ( mass/volume) 33 g/dL 32-36 Automated erythrocyte distribution width ratio 15.7 % 10.0-14.5 Automated blood platelet count (count/volume) 211 10*3/uL 130-400 Automated blood platelet mean volume measurement 9.6 [foz_us] 7.4-10.4 Liver function panel (serum or plasma alk phos, alb, total and direct bili, total protein, ALT, AST) - 11/18/18 07:15 Serum or plasma total bilirubin measurement (mass/volume) 0.3 mg/dL 0.1-1.0 Serum or plasma alkaline phosphatase measurement (enzymatic activity/volume) 86 U/L 40-136 Serum or plasma aspartate aminotransferase measurement (enzymatic activity/ volume) 21 U/L 5-34 Serum or plasma alanine aminotransferase measurement (enzymatic activity/volume ) 12 U/L 0-55 Serum or plasma protein measurement (mass/volume) 6.8 g/dL 6.4-8.2 Serum or plasma albumin measurement (mass/volume) 3.7 g/dL 3.2-4.5 Bilirubin direct 0.2 mg/dL 0.0-0.3 Serum or plasma indirect bilirubin measurement (mass/volume) 0.1 mg/ dL NRG Whole blood basic metabolic panel - 11/18/18 07:15 Serum or plasma sodium measurement (moles/volume) 132 mmol/L 135-145 Serum or plasma potassium measurement (moles/volume) 3.5 mmol/L 3.6-5.0 Serum or plasma chloride measurement (moles/volume) 98 mmol/L 98-107 Carbon dioxide 22 mmol/L 21-32 Serum or plasma anion gap determination (moles/volume) 12 mmol/L 5-14 Serum or plasma urea nitrogen measurement (mass/volume) 12 mg/dL 7-18 Serum or plasma creatinine measurement (mass/volume) 0.71 mg/dL 0.60-1.30 Serum or plasma urea nitrogen/creatinine mass ratio 17 NRG Serum or plasma creatinine measurement with calculation of estimated glomerular filtration rate > NRG Serum or plasma glucose measurement (mass/volume) 140 mg/dL 70-105 Serum or plasma calcium measurement (mass/volume) 8.4 mg/dL 8.5-10.1 Serum or plasma creatine kinase measurement (enzymatic activity/volume) - 11/18 07:15 Serum or plasma creatine kinase measurement (enzymatic activity/volume) 163 U/L 29-168 Encounters ACCT No. Visit Date/Time Discharge Status Pt. Type Provider Facility Loc./Unit Complaint [id number] 10/09/2018 16:03:00 10/09/2018 23:59:59 CLS Preadmit CEASAR SNYDER MD [facility] RAD SCREENING [id number] 08/03/2018 01:45:00 08/12/2018 15:55:00 DIS Inpatient CEASAR SNYDER MD [facility] 4TH R HIP FRACTURE [id number] 06/02/2018 09:48:00 06/02/2018 12:51:00 DIS Outpatient SAI COOK MD [facility] ENDO HX CROHNS, DIARRHEA [id number] 05/25/2018 15:20:00 05/26/2018 15:25:00 DIS Inpatient DARCI MATIAS MD [facility] 4TH DEHYDRATION,ABD PAIN [id number] 11/21/2017 09:06:00 11/21/2017 19:25:00 DIS Outpatient Aimee LEWIS MD [facility] CATH DYSPENIA,CAD [id number] 11/19/2017 09:07:00 11/19/2017 23:59:59 CLS Outpatient Aimee LEWIS MD [facility] CARD [id number] 11/18/2017 08:41:00 11/18/2017 23:59:59 CLS Outpatient Aimee LEWIS MD [facility] CARD R94.39 I25.10 I25.2 R93.1 [id number] 11/14/2017 07:45:00 11/14/2017 23:59:59 CLS Outpatient Aimee LEWIS MD [facility] CARD E78.5 HYPERLIPIDEMIA [id number] 11/13/2017 09:49:00 11/13/2017 23:59:59 CLS Outpatient Aimee LEWIS MD [facility] CARD I25.10 CAD [id number] 10/03/2017 06:33:00 10/03/2017 15:00:00 DIS Outpatient Aimee LEWIS MD [facility] CATH SEVERE LIFESTYLE LIMITED CLAUDICATION, ABN SAHRA. [id number] 05/20/2016 16:02:00 05/21/2016 13:25:00 DIS Inpatient SINDY GALE DO [facility] ICU ACUTE NARCOTIC OVERDOSE [id number] 01/16/2016 13:12:00 01/16/2016 14:34:00 DIS Emergency VADIM DO, KEVON K [facility] ER COUGH DIARRHEA [id number] 11/18/2018 06:58:00 ACT Emergency JORGE SAAVEDRA, ANA CRISTINA Vallejo [facility] ER FALL [id number] 08/25/2013 19:24:00 08/27/2013 15:30:00 DIS Inpatient Kassy SAAVEDRA, Brooks [facility] [id number] 07/06/2016 07:06:00 Document Registration [id number] 10/09/2018 13:20:00 10/09/2018 23:59:59 CLS Outpatient LILLIAN [facility]AA[facility]EDRA[facility]
[2018-11-18 08:14] LABS: BACTERIA,URINE FEW /HPF; SQUAMOUS EPITHELIAL CELL,UR TNTC /HPF; WBC,URINE 0-2 /HPF
[2018-11-18] MEDS ORDERED: NOREPINEPHRINE 4 MG in NS (IVPB) 250 ML IV SCH (08:15)
--- NOTE | 2018-11-18 08:16 | NUR ---
NG PLACED BY DR PATEL. POSITIVE AIR BOLUS IN STOMACH HEARD BY HIM.
--- NOTE | 2018-11-18 08:16 | NUR ---
BRUISING AROUND LEFT EYE INCREASING INTO LEFT FOREHEAD.
--- NOTE | 2018-11-18 08:18 | Diagnostic Imaging Report ---
PATIENT HISTORY: Trauma, fall. TECHNIQUE: Single frontal view of the chest COMPARISON: 08/08/2018 FINDINGS: There is mild cortical irregularity of the lateral right eighth rib. Irregularity of the lateral right fifth rib appears chronic. Lung volumes are large. There are mildly increased airspace opacities in the lung apices. No pneumothorax or pleural effusion is seen. The cardiac silhouette is stable in size. There are degenerative changes in the left shoulder. There is aortic atherosclerosis. IMPRESSION: 1. Cortical irregularity at the lateral right eighth rib, may represent a nondisplaced fracture. Please correlate with point tenderness. 2. Mildly increased opacities in the apices bilaterally, may represent edema or infection, consider followup. Dictated by: Dictated on workstation # [id number]
[2018-11-18] MEDS ORDERED: fentaNYL INJECTION 1,250 MCG in NS (IVPB) 250 ML IV SCH (08:30)
[2018-11-18] MEDS ORDERED: MIDAZOLAM INJECTION FOR DRIPS 50 MG in NS (IVPB) 90 ML IV SCH (08:30)
--- NOTE | 2018-11-18 08:31 | NUR ---
IN ROOM PREPARING FOR A CENTRAL LINE.
[2018-11-18 08:38] LABS: ABG BASE EXCESS -0.2 MMOL/L (-2.5-2.5); ABG OXYGEN SATURATION 100 % (94-100); ABG PCO2 61 MMHG (35-45); ABG PO2 398 MMHG (79-93); ABG TCO2 28.1 MMOL/L (21.0-31.0)
--- NOTE | 2018-11-18 08:38 | Diagnostic Imaging Report ---
PROCEDURE: CT head, face, and cervical spine without contrast. TECHNIQUE: Multiple contiguous axial images were obtained through the head, neck, and facial bones without the use of intravenous contrast. Sagittal and coronal reformations through the cervical spine and facial bones were also performed. INDICATION: Trauma, fall, head laceration, swelling in the left eye, left forehead laceration. COMPARISON: 08/03/2018. FINDINGS: CT head: The ventricles and cortical sulci are mildly prominent, likely due to generalized parenchymal volume loss. No midline shift or significant mass effect is seen. There is no acute intracranial hemorrhage seen. No CT evidence of acute territorial ischemia seen. The calvarium appears intact. There is a large left frontal scalp hematoma with laceration. CT face: The pterygoid plates appear intact. The mandible appears intact, with degenerative changes at the temporomandibular joints bilaterally. The zygomatic arches are intact. No fluid levels are seen in the maxillary sinuses. There is mild leftward deviation of the nasal septum. The orbits appear intact. There is motion artifact about the orbits. The globes appear intact. No postseptal edema is seen. There is moderate left periorbital edema. CT cervical spine: Mild motion artifact is seen at the cervical spine as well. There is exaggerated lordosis of the cervical spine. Multilevel degenerative changes are seen, particularly at C1-C2, C4-C5, C5-C6 and C6-C7. There is multilevel facet arthropathy bilaterally. No significant spondylolisthesis is seen. There may be mild spinal canal narrowing at C4-C5 and C6-C7 due to osteophytes. The soft tissues of the spinal canal are suboptimally evaluated by CT. No bony fragments are seen in the spinal canal. No acute fracture is seen. There is foraminal stenosis at C4-C5 bilaterally, C5-C6 on the left. No acute abnormality is seen in the surrounding soft tissues. IMPRESSION: 1. No acute intracranial hemorrhage or CT evidence of acute territorial ischemia. 2. Large left frontal scalp hematoma with associated laceration. Moderate left periorbital edema. 3. No acute facial fracture is seen. 4. Degenerative changes in the cervical spine with no acute fractures seen. Dictated by: Dictated on workstation # [id number]
[2018-11-18 08:39] LABS: ABG PH 7.25 (7.37-7.43); ALLENS TEST POSITIVE; INSPIRED O2 100; VENTILATOR YES
[2018-11-18 09:00] VITALS: BP 91/37
--- NOTE | 2018-11-18 09:02 | Diagnostic Imaging Report ---
INDICATION: Respiratory failure Frontal chest obtained at 8:47 hours a.m. and compared with same day at 722 hours a.m. There is a new ET tube in place tip overlying mid trachea. NG tube tip is at the GE junction and should be advanced. Right IJ central catheter tip overlies the mid SVC. There is no pneumothorax. There are chronic appearing increased interstitial markings with no focal infiltrate. IMPRESSION: Life-support lines as described above, NG tube tip is at the GE junction and should be advanced. No focal infiltrate or pneumothorax or pleural fluid. Dictated by: Dictated on workstation # [id number]
[2018-11-18] MEDS ORDERED: NS W/KCL 20 MEQ/L 1,000 ML IV SCH (09:30)
--- NOTE | 2018-11-18 09:33 | NUR ---
DR ASKED FOR ME TO INSERT NG ANOTHER 10CM UPON DOING THIS I FOUND NG TO BE OUT OF NARE. DR NOTIFIED ET ANOTHER 16F NG INSERTED INTO RIGHT NARE WITHOUT DIFFICULTY. POSITIVE AIR BOLUS HEARD.
--- NOTE | 2018-11-18 09:37 | NUR ---
PHARMACY CONTACTED FOR FLUIDS. RT NOTIFIED OF ABG AND THAT PT NEEDED TO GO TO CT.
--- NOTE | 2018-11-18 09:42 | NUR ---
BLEEDING AROUND CENTRAL LINE SITE. DRESSING APPLIED.
--- NOTE | 2018-11-18 09:43 | NUR ---
[facility] CONTACTED CONERNING POSSIBLE FLIGHT TO CORAL.
[2018-11-18] MEDS ORDERED: fentaNYL INJECTION 100 MCG/2 ML AMP IVP ONE (09:45)
[2018-11-18] MEDS ORDERED: MIDAZOLAM 5 MG/5 ML (VERSED) VIAL IVP ONE ×2 (09:45)
--- NOTE | 2018-11-18 09:45 | NUR ---
[facility] CONTACTED AT THIS TIME FOR TRANSPORT. TRANSPORT DECLINED DUE TO WEATHER. [facility] CONTACTING [facility].
--- NOTE | 2018-11-18 09:53 | NUR ---
PHONE CALL PLACED TO [facility]. RECEIVED OK TO CALL DISPATCH TO HAVE [facility] TO GET PT AND TRANSPORT TO [facility] IN [place], [place].
--- NOTE | 2018-11-18 10:00 | NUR ---
WHILE IN CT PT PRESSURE DROPPED TO 84/47. NOTIFIED.
[2018-11-18 10:03] LABS: ABG OXYGEN SATURATION 100 % (94-100); ABG PCO2 48 MMHG (35-45); ABG PH 7.36 (7.37-7.43); ABG PO2 197 MMHG (79-93); ABG TCO2 28.5 MMOL/L (21.0-31.0)
[2018-11-18 10:04] LABS: ALLENS TEST POSITIVE
[2018-11-18 10:05] LABS: INSPIRED O2 40%; PATIENT TEMP 98; VENTILATOR YES
--- NOTE | 2018-11-18 10:18 | Diagnostic Imaging Report ---
CLINICAL INDICATION: Patient has history of seizure. TECHNIQUE: An axial CT scan of the brain was performed without IV contrast. COMPARISON: Head CT without contrast dated 11/18/2018. FINDINGS: Stable CT scan of the brain with no evidence of interval intracranial hemorrhage, acute cerebral infarct, hydrocephalus, brain herniation, or cerebral edema. Stable small chronic cerebral infarct involving the left basal ganglia region. The brain parenchymal volume appears appropriate for the patient's age. There is normal abreu/white matter distinction. There is a stable large area of extracranial soft tissue swelling involving the left anterior aspect of the head and left periorbital region with associated laceration and subcutaneous air. The orbits and globes are intact. There is no retrobulbar fluid or hematoma seen. There is interval placement of a nasogastric tube and an ET tube is partially visualized. There is mucosal thickening involving the nasal cavity and ethmoid sinus which has developed in the interim. IMPRESSION: 1. Stable CT scan of the brain with no evidence of interval acute intracranial process. There is no intracranial hemorrhage, cerebral edema, hydrocephalus, or acute cerebral infarct. 2. Interval placement of a nasogastric tube and orogastric feeding tube which is partially visualized. 3. Stable small chronic infarct involving the left basal ganglia region. Dictated by: Dictated on workstation # [id number]
[2018-11-18 10:54] VITALS: BP 130/84
--- NOTE | 2018-11-18 10:54 | NUR ---
[facility] HERE.
== END 2018-11-18 10:54 | disposition short-term general hospital (02) ==
LOC: EDUNIT# 06:57 → ER 06:58
DX: S01.81XA Laceration without foreign body of other part of head, initial encounter (principal); J96.00 Acute respiratory failure, unspecified whether with hypoxia or hypercapnia; E87.2 Acidosis; R56.9 Unspecified convulsions; J44.9 Chronic obstructive pulmonary disease, unspecified; I25.10 Atherosclerotic heart disease of native coronary artery without angina pectoris; I25.2 Old myocardial infarction; I10 Essential (primary) hypertension; F41.0 Panic disorder [episodic paroxysmal anxiety]; F43.10 Post-traumatic stress disorder, unspecified; F31.9 Bipolar disorder, unspecified; G25.81 Restless legs syndrome; D61.9 Aplastic anemia, unspecified; K21.9 Gastro-esophageal reflux disease without esophagitis; R40.2132 Coma scale, eyes open, to sound, at arrival to emergency department; R40.2242 Coma scale, best verbal response, confused conversation, at arrival to emergency department; R40.2362 Coma scale, best motor response, obeys commands, at arrival to emergency department; F17.210 Nicotine dependence, cigarettes, uncomplicated; F17.290 Nicotine dependence, other tobacco product, uncomplicated; Z88.6 Allergy status to analgesic agent; Z23 Encounter for immunization; Z91.81 History of falling; Z87.828 Personal history of other (healed) physical injury and trauma; Z80.41 Family history of malignant neoplasm of ovary; Z95.5 Presence of coronary angioplasty implant and graft; Z79.51 Long term (current) use of inhaled steroids; Z79.82 Long term (current) use of aspirin; Z79.02 Long term (current) use of antithrombotics/antiplatelets; W19.XXXA Unspecified fall, initial encounter; Y92.002 Bathroom of unspecified non-institutional (private) residence as the place of occurrence of the external cause
CPT/HCPCS: 12011; 31500; 36415; 51702; 70450; 70486; 71045; 72125; 80048; 80076; 80320; 81000; 82550; 82805; 85027; 86850; 86900; 86901; 87040; 87070; 87077; 87205; 90715; 93005; 93041; 99291; 99292

== ENCOUNTER 2019-01-12 04:43 | Emergency (ER) | payer MEDICARE ==
[~2019-01-12] VITALS: Ht 157.5 cm; Wt 49.9 kg
[~2019-01-12 04:43] MED LIST changes: -GABA600T2 PO; +GBPN600T PO; -SIME125T49 PO; +SIME125T59 PO
[2019-01-12] MEDS ORDERED: LORazepam INJ 2 MG/ML (ATIVAN) VIAL ONE (04:50)
--- OUTSIDE RECORDS SUMMARY | 2019-01-12 04:50 | XMS REPORT | Continuity of Care Document ---
Author Author [facility] Organization [facility] Address Unknown Phone Unavailable Allergies Active Description Code Type Severity Reaction Onset Reported/Identified Relationship to Patient Clinical Status Yes NUTS Moderate N/ A 11/07/2006 Yes celecoxib Drug Allergy Unknown GI UPSET 01/20/2009 Yes acetaminophen [id number] Drug Allergy Unknown N/A 01/16/2016 Yes diphenhydramine [id number] Drug Allergy Unknown N/A 08/03/2018 Yes oxymorphone [id number] Drug Allergy Unknown N/A 08/03/2018 Yes varenicline [id number] Drug Allergy Unknown N/A 08/03/2018 Medications There [...] DO Ot 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 05/21/2016 SINDY GALE DO Ot I25.2 [...] DO Ot 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 05/21/2016 SINDY GALE DO Ot I25.2 [...] MD Ot 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 10/03/2017 Aimee LEWIS MD Ot I25.2 OLD MYOCARDIAL INFARCTION 10/03/2017 Aimee LEWIS MD Ot I70.213 ATHSCL [place] ARTERIES OF EXTRM W INTRMT 10/03/2017 Aimee LEWIS MD Ot R06.02 SHORTNESS OF BREATH 10/03/2017 Aimee LEWIS MD Ot Z79.82 TIN TIE MACHINE OPERATOR AUTOMATIC (CURRENT) USE OF ASPIRIN 10/03/2017 Aimee LEWIS MD Ot Z79.899 OTHER TIN TIE MACHINE OPERATOR AUTOMATIC (CURRENT) DRUG THERAPY 10/03/2017 Aimee LEWIS MD Ot Z95.5 PRESENCE OF CORONARY ANGIOPLASTY IMPLANT 10/09/2017 Aimee LEWIS MD Ot E78.5 HYPERLIPIDEMIA, UNSPECIFIED 10/09/2017 Aimee LEWIS MD Ot F17.290 NICOTINE DEPENDENCE, OTHER TOBACCO PRODU 10/09/2017 Aimee LEWIS MD Ot I10 ESSENTIAL (PRIMARY) HYPERTENSION 10/09/2017 Aimee LEWIS MD Ot 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 10/09/2017 Aimee LEWIS MD Ot I25.2 OLD MYOCARDIAL INFARCTION 10/09/2017 Aimee LWEIS MD Ot 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 10/09/2017 Aimee LEWIS MD Ot R06.02 SHORTNESS OF BREATH 10/09/2017 Aimee LEWIS MD Ot Z79.82 TIN TIE MACHINE OPERATOR AUTOMATIC (CURRENT) USE OF ASPIRIN 10/09/2017 Aimee LEWIS MD Ot Z79.899 OTHER TIN TIE MACHINE OPERATOR AUTOMATIC (CURRENT) DRUG THERAPY 10/09/2017 Aimee LEWIS MD [...] MD Ot 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 11/21/2017 Aimee LEWIS MD Ot I25.2 OLD MYOCARDIAL INFARCTION 11/21/2017 Aimee LEWIS MD Ot I27.20 PULMONARY HYPERTENSION, UNSPECIFIED 11/21/2017 Aimee LEWIS MD Ot I70.213 ATHSCL [place] ARTERIES OF EXTR [facility] 11/21/2017 Aimee LEWIS MD Ot T82.855A STENOSIS OF CORONARY ARTERY STENT, INITI 11/21/2017 Aimee LEWIS MD Ot Z79.82 CARE HOME (CURRENT) USE OF ASPIRIN 11/21/2017 Aimee LEWIS MD Ot Z79.899 OTHER TIN TIE MACHINE OPERATOR AUTOMATIC (CURRENT) DRUG THERAPY 11/21/2017 Aimee LEWIS MD [...] MD Ot 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 11/25/2017 Aimee LEWIS MD Ot I25.2 OLD MYOCARDIAL INFARCTION 11/25/2017 Aimee LEWIS MD Ot I27.20 PULMONARY HYPERTENSION, UNSPECIFIED 11/25/2017 Aimee LEWIS MD Ot I70.213 ATHSCL [place] ARTERIES OF EXTRM W INTRMT 11/25/2017 Aimee LEWIS MD Ot T82.855A STENOSIS OF CORONARY ARTERY STENT, INITI 11/25/2017 Aimee LEWIS MD Ot Z79.82 CARE HOME (CURRENT) USE OF ASPIRIN 11/25/2017 Aimee LEWIS MD Ot Z79.899 OTHER TIN TIE MACHINE OPERATOR AUTOMATIC (CURRENT) DRUG THERAPY 11/25/2017 Aimee LEWIS MD [...] MD Ot 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 11/26/2017 Aimee LEWIS MD Ot I25.2 OLD MYOCARDIAL INFARCTION 11/26/2017 Aimee LEWIS MD Ot I27.20 PULMONARY HYPERTENSION, UNSPECIFIED 11/26/2017 Aimee LEWIS MD Ot I70.213 ATHSCL [place] ARTERIES OF EXTRM W INTRMT 11/26/2017 Aimee LEWIS MD Ot T82.855A STENOSIS OF CORONARY ARTERY STENT, INITI 11/26/2017 Aimee LEWIS MD Ot Z79.82 CARE HOME (CURRENT) USE OF ASPIRIN 11/26/2017 Aimee LEWIS MD Ot Z79.899 OTHER TIN TIE MACHINE OPERATOR AUTOMATIC (CURRENT) DRUG THERAPY 11/26/2017 Aimee LEWIS MD Ot Z95.5 PRESENCE OF CORONARY ANGIOPLASTY IMPLANT 12/02/2017 Aimee LEWIS MD Ot E78.5 HYPERLIPIDEMIA, UNSPECIFIED 12/02/2017 Aimee LEWIS MD Ot F17.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, UNSPECIFIED, UNCOMP 12/02/2017 Aimee LEWIS MD Ot I10 ESSENTIAL (PRIMARY) HYPERTENSION 12/02/2017 Aimee LEWIS MD Ot 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 12/02/2017 Aimee LEWIS MD Ot R06.02 SHORTNESS OF BREATH 12/02/2017 Aimee LEWIS MD Ot E78.5 HYPERLIPIDEMIA, UNSPECIFIED 12/02/2017 Aimee LEWIS MD Ot F17.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, UNSPECIFIED, UNCOMP 12/02/2017 Aimee LEWIS MD Ot I10 ESSENTIAL (PRIMARY) HYPERTENSION 12/02/2017 Aimee LEWIS MD Ot 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 12/02/2017 Aimee LEWIS MD Ot I73.9 PERIPHERAL VASCULAR DISEASE, UNSPECIFIED 12/02/2017 Aimee LEWIS MD Ot R06.02 SHORTNESS OF BREATH 12/02/2017 Aimee LEWIS MD Ot 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 12/02/2017 Aimee LEWIS MD Ot I25.2 [...] MD Ot 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 12/09/2017 Aimee LEWIS MD Ot R06.02 SHORTNESS OF BREATH 12/17/2017 Aimee LEWIS MD Ot E78.5 HYPERLIPIDEMIA, UNSPECIFIED 12/17/2017 Aimee LEWIS MD Ot F17.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, UNSPECIFIED, UNCOMP 12/17/2017 Aimee LEWIS MD Ot I10 ESSENTIAL (PRIMARY) HYPERTENSION 12/17/2017 Aimee LEWIS MD Ot 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 12/17/2017 Aimee LEWIS MD Ot R06.02 SHORTNESS OF BREATH 02/20/2018 Aimee LEWIS MD Ot E78.5 HYPERLIPIDEMIA, UNSPECIFIED 02/20/2018 Aimee LEWIS MD Ot F17.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, UNSPECIFIED, UNCOMP 02/20/2018 Aimee LEWIS MD Ot I10 ESSENTIAL (PRIMARY) HYPERTENSION 02/20/2018 Aimee LEWIS MD Ot 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 02/20/2018 Aimee LEWIS MD Ot I73.9 PERIPHERAL VASCULAR DISEASE, UNSPECIFIED 02/20/2018 Aimee LEWIS MD Ot R06.02 SHORTNESS OF BREATH 02/20/2018 Aimee LEWIS MD Ot E78.5 HYPERLIPIDEMIA, UNSPECIFIED 02/20/2018 Aimee LEWIS MD Ot F17.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, UNSPECIFIED, UNCOMP 02/20/2018 Aimee LEWIS MD Ot I10 ESSENTIAL (PRIMARY) HYPERTENSION 02/20/2018 Amiee LEWIS MD Ot 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 02/20/2018 Aimee LEWIS MD Ot R06.02 SHORTNESS OF BREATH 02/20/2018 Aimee LEWIS MD Ot 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 02/20/2018 Aimee LEWIS MD Ot I25.2 OLD MYOCARDIAL INFARCTION 02/20/2018 Aimee LEWIS MD Ot R93.1 ABNORMAL FINDINGS ON DX IMAGING OF HEART 02/20/2018 Aimee LEWIS MD Ot R94.39 ABNORMAL RESULT OF OTHER CARDIOVASCULAR 02/20/2018 Aimee LEWIS MD Ot 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 02/20/2018 Aimee LEWIS MD Ot I25.2 [...] MD, Ot 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 05/26/2018 DARCI MATIAS MD Ot I25.2 OLD MYOCARDIAL INFARCTION 05/26/2018 DARCI MATIAS MD Ot J44.9 CHRONIC OBSTRUCTIVE PULMONARY DISEASE, U 05/26/2018 DARCI MATIAS MD, Ot J45.909 UNSPECIFIED ASTHMA, UNCOMPLICATED 05/26/2018 DARCI MATIAS MD Ot K52.9 NONINFECTIVE GASTROENTERITIS AND COLITIS 05/26/2018 DARCI MATIAS MD Ot R10.13 EPIGASTRIC PAIN 05/26/2018 DARCI MATIAS MD Ot R63.4 ABNORMAL WEIGHT LOSS 05/26/2018 DARCI MATIAS MD Ot Z79.82 TIN TIE MACHINE OPERATOR AUTOMATIC (CURRENT) USE OF ASPIRIN 05/26/2018 DARCI MATIAS MD Ot Z79.899 OTHER CARE HOME (CURRENT) DRUG THERAPY 05/26/2018 DARCI MATIAS MD [...] MD Ot 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 05/26/2018 DARCI MATIAS MD Ot I25.2 OLD MYOCARDIAL INFARCTION 05/26/2018 DARCI MATIAS MD Ot J44.9 CHRONIC OBSTRUCTIVE PULMONARY DISEASE, U 05/26/2018 DARCI MATIAS MD Ot J45.909 UNSPECIFIED ASTHMA, UNCOMPLICATED 05/26/2018 DARCI MATIAS MD Ot K52.9 NONINFECTIVE GASTROENTERITIS AND COLITIS 05/26/2018 DARCI MATIAS MD Ot R10.13 EPIGASTRIC PAIN 05/26/2018 DARCI MATIAS MD Ot R63.4 ABNORMAL WEIGHT LOSS 05/26/2018 DARCI MATIAS MD Ot Z79.82 TIN TIE MACHINE OPERATOR AUTOMATIC (CURRENT) USE OF ASPIRIN 05/26/2018 DARCI MATIAS MD Ot Z79.899 OTHER TIN TIE MACHINE OPERATOR AUTOMATIC (CURRENT) DRUG THERAPY 05/26/2018 DARCI MATIAS MD [...] Yu Ot 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..] MD, Ot I25.118 ATHSCL HEART DISEASE OF THE [place] COR ART W 08/08/2018 CEASAR SNYDER MD, [...] MD, Ot I25.118 ATHSCL HEART DISEASE OF THE [place] COR ART W 08/08/2018 CEASAR SNYDER MD, [...] MD, Ot I25.118 ATHSCL HEART DISEASE OF THE [place] COR ART W 08/08/2018 CEASAR SNYDER MD, Ot I25.2 OLD MYOCARDIAL INFARCTION 08/08/2018 CEASAR SNYDER MD Ot I70.0 ATHEROSCLEROSIS OF [place] 08/08/2018 CEASAR SNYDER MD, Ot I73.9 PERIPHERAL VASCULAR DISEASE, UNSPECIFIED 08/08/2018 CEASAR SNYDER MD, Ot J44.9 CHRONIC OBSTRUCTIVE PULMONARY DISEASE, U 08/08/2018 CEASAR SNYDRE MD, Ot J45.30 MILD PERSISTENT ASTHMA, UNCOMPLICATED [...] Ot F31.9 BIPOLAR DISORDER, UNSPECIFIED 08/09/2018 CEASAR SNYDER MD, Ot F41.0 PANIC DISORDER [EPISODIC PAROXYSMAL ANXI 08/09/2018 CEASAR SNYDER MD, Ot F43.10 POST-TRAUMATIC STRESS DISORDER, UNSPECIF 08/09/2018 CEASAR SNYDER MD, Ot F51.3 SLEEPWALKING [SOMNAMBULISM] 08/09/2018 CEASAR SNYDER MD, Ot G25.81 RESTLESS LEGS SYNDROME 08/09/2018 CEASAR SNYDER MD Ot G89.4 CHRONIC PAIN SYNDROME 08/09/2018 CEASAR SNYDER MD Ot 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 08/09/2018 CEASAR SNYDER MD Ot I10 ESSENTIAL (PRIMARY) HYPERTENSION 08/09/2018 CEASAR SNYDER MD, Ot I25.118 ATHSCL HEART DISEASE OF THE [place] COR ART W 08/09/2018 CEASAR SNYDER MD, [...] Ot G89.4 CHRONIC PAIN SYNDROME 08/11/2018 CEASAR SNYDRE MD Ot 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 08/11/2018 CEASAR SNYDER MD Ot I10 ESSENTIAL (PRIMARY) HYPERTENSION 08/11/2018 CEASAR SNYDER MD, Ot I25.118 ATHSCL HEART DISEASE OF THE [place] COR ART W 08/11/2018 CEASAR SNYDER MD, [...] PERSONAL HISTORY OF MALIGNANT NEOPLASM O 08/11/2018 CAESAR SNYDER MD, Ot Z85.828 PERSONAL HISTORY OF [...] MD, Ot I25.118 ATHSCL HEART DISEASE OF THE [place] COR ART W 08/12/2018 CEASAR SNYDER MD, [...] Ot J45.30 MILD PERSISTENT ASTHMA, UNCOMPLICATED 08/12/2018 CEASRA SNYDER MD Ot K21.9 GASTRO-ESOPHAGEAL REFLUX DISEASE WITHOUT 08/12/2018 CEASAR SNYDER MD, Ot K50.90 CROHN'S DISEASE, UNSPECIFIED, WITHOUT CO 08/12/2018 CEASAR SNYDER MD, Ot M19.91 PRIMARY OSTEOARTHRITIS, UNSPECIFIED SITE 08/12/2018 CEASAR SNYDER MD Ot M54.9 DORSALGIA, UNSPECIFIED 08/12/2018 CEASAR SNYDER MD, Ot S72.141A DISPLACED INTERTROCHANTERIC FRACTURE OF 08/12/2018 CEASAR SNYDER MD Ot T84.84XA PAIN DUE TO INTERNAL ORTHOPEDIC PROSTH D 08/12/2018 CEASAR SNYDER MD Ot W18.00XA STRIKING AGAINST UNSP OBJECT W SUBSEQUEN 08/12/2018 CEASAR SNYDER MD Ot Y92.013 BEDROOM OF SINGLE-FAMILY (PRIVATE) HOUSE 08/12/2018 CEASAR SNYDER MD Ot Z85.43 PERSONAL HISTORY OF MALIGNANT NEOPLASM O 08/12/2018 CEASAR SNYDER MD Ot Z85.828 PERSONAL HISTORY OF OTHER MALIGNANT NEOP 08/12/2018 CEASAR SNYDER MD Ot Z95.5 PRESENCE OF CORONARY ANGIOPLASTY IMPLANT 11/18/2018 Aimee LEWIS MD Ot E78.5 HYPERLIPIDEMIA, UNSPECIFIED 11/18/2018 Aimee LEWIS MD Ot F17.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, UNSPECIFIED, UNCOMP 11/18/2018 Aimee LEWIS MD Ot I10 ESSENTIAL (PRIMARY) HYPERTENSION 11/18/2018 Aimee LEWIS MD Ot 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 11/18/2018 Aimee LEWIS MD Ot I73.9 PERIPHERAL VASCULAR DISEASE, UNSPECIFIED 11/18/2018 Aimee LEWIS MD Ot R06.02 SHORTNESS OF BREATH 11/18/2018 Aimee LEWIS MD Ot E78.5 HYPERLIPIDEMIA, UNSPECIFIED 11/18/2018 Aimee LEWIS MD Ot F17.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, UNSPECIFIED, UNCOMP 11/18/2018 Aimee LEWIS MD Ot I10 ESSENTIAL (PRIMARY) HYPERTENSION 11/18/2018 Aimee LEWIS MD Ot 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 11/18/2018 Aimee LEWIS MD Ot R06.02 SHORTNESS OF BREATH 11/18/2018 Aimee LEWIS MD Ot 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 11/18/2018 Aimee LEWIS MD Ot I25.2 OLD MYOCARDIAL INFARCTION 11/18/2018 Aimee LEWIS MD Ot R93.1 ABNORMAL FINDINGS ON DX IMAGING OF HEART 11/18/2018 Aimee LEWIS MD Ot R94.39 ABNORMAL RESULT OF OTHER CARDIOVASCULAR 11/18/2018 Aimee LEWIS MD Ot 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 11/18/2018 Aimee LEWIS MD, Ot I25.2 OLD MYOCARDIAL INFARCTION 11/18/2018 Aimee LEWIS MD Ot R93.1 ABNORMAL FINDINGS ON DX IMAGING OF HEART 11/18/2018 Aimee LEWIS MD Ot R94.39 ABNORMAL RESULT OF OTHER CARDIOVASCULAR 11/18/2018 ANA CRISTINA PATEL MD Ot D61.9 APLASTIC ANEMIA, UNSPECIFIED 11/18/2018 ANA CRISTINA PATEL MD Ot E87.2 ACIDOSIS 11/18/2018 ANA CRISTINA PATEL MD Ot F17.210 NICOTINE DEPENDENCE, CIGARETTES, UNCOMPL 11/18/2018 ANA CRISTINA PATEL MD Ot F17.290 NICOTINE DEPENDENCE, OTHER TOBACCO PRODU 11/18/2018 ANA CRISTINA PATEL MD Ot F31.9 BIPOLAR DISORDER, UNSPECIFIED 11/18/2018 ANA CRISTINA PATEL MD Ot F41.0 PANIC DISORDER [EPISODIC PAROXYSMAL ANXI 11/18/2018 ANA CRISTINA PATEL MD Ot F43.10 POST-TRAUMATIC STRESS DISORDER, UNSPECIF 11/18/2018 ANA CRISTINA PATEL MD Ot G25.81 RESTLESS LEGS SYNDROME 11/18/2018 ANA CRISTINA APTEL MD Ot I10 ESSENTIAL (PRIMARY) HYPERTENSION 11/18/2018 ANA CRISTINA PATEL MD Ot 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 11/18/2018 ANA CRISTINA PATEL MD J Ot I25.2 OLD MYOCARDIAL INFARCTION 11/18/2018 ANA CRISTINA PATEL MD Ot J44.9 CHRONIC OBSTRUCTIVE PULMONARY DISEASE, U 11/18/2018 ANA CRISTINA PATEL MD Ot J96.00 ACUTE RESPIRATORY FAILURE, UNSP W HYPOXI 11/18/2018 ANA CRISTINA PATEL MD Ot K21.9 GASTRO-ESOPHAGEAL REFLUX DISEASE WITHOUT 11/18/2018 ANA CRISTINA PATEL MD J Ot R40.2132 COMA SCALE, EYES OPEN, TO SOUND, EMR 11/18/2018 ANA CRISTINA PATEL MD Ot R40.2242 COMA SCALE, BEST VERBAL RESPONSE, CONFUS 11/18/2018 ANA CRISTINA PATEL MD Ot R40.2362 COMA SCALE, BEST MOTOR RESPONSE, OBEYS C 11/18/2018 ANA CRISTINA PATEL MD Ot R56.9 UNSPECIFIED CONVULSIONS 11/18/2018 ANA CRISTINA PATEL MD Ot S01.81XA LACERATION W/O FOREIGN BODY OF OTH PART 11/18/2018 ANA CRISTINA PATEL MD Ot W19.XXXA UNSPECIFIED FALL, INITIAL ENCOUNTER 11/18/2018 ANA CRISTINA PATEL MD Ot Y92.002 BATHRM OF [facility] NON-INSTITUT RESDNCE SNGL 11/18/2018 ANA CRISTINA PATEL MD, Ot Z23 ENCOUNTER FOR IMMUNIZATION 11/18/2018 ANA CRISTINA PATEL MD, Ot Z79.02 CARE HOME (CURRENT) USE OF ANTITHROMBOTI 11/18/2018 ANA CRISTINA PATEL MD Ot Z79.51 TIN TIE MACHINE OPERATOR AUTOMATIC (CURRENT) USE OF INHALED STERO 11/18/2018 ANA CRISTINA PATEL MD, Ot Z79.82 TIN TIE MACHINE OPERATOR AUTOMATIC (CURRENT) USE OF ASPIRIN 11/18/2018 ANA CRISTINA PATEL MD, Ot Z80.41 FAMILY HISTORY OF MALIGNANT NEOPLASM OF 11/18/2018 ANA CRISTINA PATEL MD, Ot Z87.828 PERSONAL HISTORY OF OTH (HEALED) PHYSICA 11/18/2018 ANA CRISTINA PATEL MD, Ot Z88.6 ALLERGY STATUS TO ANALGESIC AGENT STATUS 11/18/2018 ANA CRISTINA PATEL MD Ot Z91.81 HISTORY OF FALLING 11/18/2018 ANA CRISTINA PATEL MD Ot Z95.5 PRESENCE OF CORONARY ANGIOPLASTY IMPLANT 11/20/2018 ANA CRISTINA PATEL MD Ot D61.9 APLASTIC ANEMIA, UNSPECIFIED 11/20/2018 ANA CRISTINA PATEL MD Ot E87.2 ACIDOSIS 11/20/2018 ANA CRISTINA PATEL MD Ot F17.210 NICOTINE DEPENDENCE, CIGARETTES, UNCOMPL 11/20/2018 ANA CRISTINA PATEL MD Ot F17.290 NICOTINE DEPENDENCE, OTHER TOBACCO PRODU 11/20/2018 ANA CRISTINA PATEL MD Ot F31.9 BIPOLAR DISORDER, UNSPECIFIED 11/20/2018 ANA CRISTINA PATEL MD Ot F41.0 PANIC DISORDER [EPISODIC PAROXYSMAL ANXI 11/20/2018 ANA CRISTINA PATEL MD Ot F43.10 POST-TRAUMATIC STRESS DISORDER, UNSPECIF 11/20/2018 ANA CRISTINA PATEL MD Ot G25.81 RESTLESS LEGS SYNDROME 11/20/2018 ANA CRISTINA PATEL MD Ot I10 ESSENTIAL (PRIMARY) HYPERTENSION 11/20/2018 ANA CRISTINA PATEL MD Ot 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 11/20/2018 ANA CRISTINA PATEL MD, Ot I25.2 OLD MYOCARDIAL INFARCTION 11/20/2018 ANA CRISTINA PATEL MD, Ot J44.9 CHRONIC OBSTRUCTIVE PULMONARY DISEASE, U 11/20/2018 ANA CRISTINA PATEL MD Ot J96.00 ACUTE RESPIRATORY FAILURE, [facility] W HYPOXI 11/20/2018 ANA CRISTNIA PATEL MD, Ot K21.9 GASTRO-ESOPHAGEAL REFLUX DISEASE WITHOUT 11/20/2018 ANA CRISTINA PATEL MD Ot R40.2132 COMA SCALE, EYES OPEN, TO SOUND, EMR 11/20/2018 ANA CRISTINA PATEL MD Ot R40.2242 COMA SCALE, BEST VERBAL RESPONSE, CONFUS 11/20/2018 ANA CRISTINA PATEL MD Ot R40.2362 COMA SCALE, BEST MOTOR RESPONSE, OBEYS C 11/20/2018 ANA CRISTINA PATEL MD Ot R56.9 UNSPECIFIED CONVULSIONS 11/20/2018 ANA CRISTINA PATEL MD Ot S01.81XA LACERATION W/O FOREIGN BODY OF OTH PART 11/20/2018 ANA CRISTINA PATEL MD Ot W19.XXXA UNSPECIFIED FALL, INITIAL ENCOUNTER 11/20/2018 ANA CRISTINA PATEL MD Ot Y92.002 BATHRM OF [facility] NON-INSTITUT RESDNCE SNGL 11/20/2018 ANA CRISTINA PATEL MD Ot Z23 ENCOUNTER FOR IMMUNIZATION 11/20/2018 ANA CRISTINA PATEL MD Ot Z79.02 TIN TIE MACHINE OPERATOR AUTOMATIC (CURRENT) USE OF ANTITHROMBOTI 11/20/2018 ANA CRISTINA PATEL MD, Ot Z79.51 CARE HOME (CURRENT) USE OF INHALED STERO 11/20/2018 ANA CRISTINA PATEL MD, Ot Z79.82 CARE HOME (CURRENT) USE OF ASPIRIN 11/20/2018 ANA CRISTINA PATEL MD, Ot Z80.41 FAMILY HISTORY OF MALIGNANT NEOPLASM OF 11/20/2018 ANA CRISTINA PATEL MD, Ot Z87.828 PERSONAL HISTORY OF OTH (HEALED) PHYSICA 11/20/2018 ANA CRISTINA PATEL MD Ot Z88.6 ALLERGY STATUS TO ANALGESIC AGENT STATUS 11/20/2018 ANA CRISTINA PATEL MD Ot Z91.81 HISTORY OF FALLING 11/20/2018 ANA CRISTINA PATEL MD Ot Z95.5 PRESENCE OF CORONARY ANGIOPLASTY IMPLANT 11/20/2018 ANA CRISTINA PATEL MD Ot D61.9 APLASTIC ANEMIA, UNSPECIFIED 11/20/2018 ANA CRISTINA PATEL MD Ot E87.2 ACIDOSIS 11/20/2018 ANA CRISTINA PATEL MD Ot F17.210 NICOTINE DEPENDENCE, CIGARETTES, UNCOMPL 11/20/2018 ANA CRISTINA PATEL MD Ot F17.290 NICOTINE DEPENDENCE, OTHER TOBACCO PRODU 11/20/2018 ANA CRISTINA PATEL MD Ot F31.9 BIPOLAR DISORDER, UNSPECIFIED 11/20/2018 ANA CRISTINA PATEL MD Ot F41.0 PANIC DISORDER [EPISODIC PAROXYSMAL ANXI 11/20/2018 ANA CRISTINA PATEL MD Ot F43.10 POST-TRAUMATIC STRESS DISORDER, UNSPECIF 11/20/2018 ANA CRISTINA PATEL MD Ot G25.81 RESTLESS LEGS SYNDROME 11/20/2018 ANA CRISTINA PATEL MD Ot I10 ESSENTIAL (PRIMARY) HYPERTENSION 11/20/2018 ANA CRISTINA PATEL MD Ot 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 11/20/2018 ANA CRISTINA PATEL MD Ot I25.2 OLD MYOCARDIAL INFARCTION 11/20/2018 ANA CRISTINA PATEL MD Ot J44.9 CHRONIC OBSTRUCTIVE PULMONARY DISEASE, U 11/20/2018 ANA CRISTINA PATEL MD Ot J96.00 ACUTE RESPIRATORY FAILURE, UNSP W HYPOXI 11/20/2018 ANA CRISTINA PATEL MD Ot K21.9 GASTRO-ESOPHAGEAL REFLUX DISEASE WITHOUT 11/20/2018 ANA CRISTINA PATEL MD Ot R40.2132 COMA SCALE, EYES OPEN, TO SOUND, EMR 11/20/2018 ANA CRISTINA PATEL MD Ot R40.2242 COMA SCALE, BEST VERBAL RESPONSE, CONFUS 11/20/2018 ANA CRISTINA PATEL MD Ot R40.2362 COMA SCALE, BEST MOTOR RESPONSE, OBEYS C 11/20/2018 ANA CRISTINA PATEL MD Ot R56.9 UNSPECIFIED CONVULSIONS 11/20/2018 ANA CRISTINA PATEL MD Ot S01.81XA LACERATION W/O FOREIGN BODY OF OTH PART 11/20/2018 ANA CRISTINA PATEL MD Ot W19.XXXA UNSPECIFIED FALL, INITIAL ENCOUNTER 11/20/2018 ANA CRISTINA PATEL MD Ot Y92.002 BATHRM OF [facility] NON-INSTITUT RESDNCE SNGL 11/20/2018 ANA CRISTINA PATEL MD, Ot Z23 ENCOUNTER FOR IMMUNIZATION 11/20/2018 ANA CRISTINA PATEL MD Ot Z79.02 TIN TIE MACHINE OPERATOR AUTOMATIC (CURRENT) USE OF ANTITHROMBOTI 11/20/2018 ANA CRISTINA PATEL MD, Ot Z79.51 TIN TIE MACHINE OPERATOR AUTOMATIC (CURRENT) USE OF INHALED STERO 11/20/2018 ANA CRISTINA PATEL MD, Ot Z79.82 TIN TIE MACHINE OPERATOR AUTOMATIC (CURRENT) USE OF ASPIRIN 11/20/2018 ANA CRISTINA PATEL MD, Ot Z80.41 FAMILY HISTORY OF MALIGNANT NEOPLASM OF 11/20/2018 ANA CRISTINA PATEL MD, Ot Z87.828 PERSONAL HISTORY OF OTH (HEALED) PHYSICA 11/20/2018 ANA CRISTINA PATEL MD, Ot Z88.6 ALLERGY STATUS TO ANALGESIC AGENT STATUS 11/20/2018 ANA CRISTINA PATEL MD, Ot Z91.81 HISTORY OF FALLING 11/20/2018 ANA CRISTINA PATEL MD, Ot Z95.5 PRESENCE OF CORONARY ANGIOPLASTY IMPLANT Procedures Code Description Performed By Performed On [id number] REPOSITION R UP FEMUR WITH INTRAMED FIX, 08/03/2018 [id number] REPOSITION R UP FEMUR WITH INTRAMED FIX, 08/03/2018 [id number] REVISION OF INT FIX IN R UP [...] - 07:09 MRSA SCREEN RESULT MRSA ISOLATED [facility] Automated blood complete blood count (hemogram) [...] - 09:55 MRSA SCREEN RESULT MRSA ISOLATED [facility] Complete blood count (CBC) with automated [...] panel - 08/11/18 05:50 ABO+Rh group OP NRG Transfusion band number [id number] NR Blood group antibody screen NEGATIVE NR Complete blood count (CBC) with automated [...] indirect bilirubin measurement (mass/volume) 0.1 mg/ dL [facility] Whole blood basic metabolic panel - 11/18/18 [...] calculation of estimated glomerular filtration rate > NR Serum or plasma glucose measurement (mass/volume) 140 mg/dL 70-105 Serum or plasma calcium measurement (mass/volume) 8.4 mg/dL 8.5-10.1 Serum or plasma creatine kinase measurement (enzymatic activity/volume) - 11/18 07:15 Serum or plasma creatine kinase measurement (enzymatic activity/volume) 163 U/L 29-168 Serum or plasma ethanol measurement (mass/volume) - 11/18/18 07:15 Serum or plasma ethanol measurement (mass/volume) < mg/dL <10 Blood type T Indirect antibody screen panel - 11/18/18 07:15 ABO+Rh group OP [facility] Transfusion band number [id number] [facility] Blood group antibody screen NEGATIVE [facility] Complete urinalysis with reflex to culture - 11/18/18 07:55 Urine color determination [facility] Urine clarity determination SLIGHTLY CLOUDY [facility] Urine pH measurement by test strip 5 5-9 Specific gravity of urine by test strip 1.030 1.016- 1.022 Urine protein assay by test strip, semi-quantitative 3+ NEGATIVE Urine glucose detection by automated test strip NEGATIVE NEGATIVE Erythrocytes detection in urine sediment by light microscopy 5+ NEGATIVE Urine ketones detection by automated test [...] detection in urine sediment by light microscopy TNTC NRG Crystals detection in urine sediment by light microscopy NONE NRG Casts detection in urine sediment by light microscopy NONE NRG Mucus detection in urine sediment by light microscopy NEGATIVE NRG Complete urinalysis with reflex to culture NO NRG Arterial blood gas measurement - 11/18/18 08:30 Blood pCO2 61 mm[Hg] 35-45 Blood pO2 398 mm[Hg] 79-93 Arterial blood bicarbonate measurement (moles/volume) 26 mmol/L 23-27 Arterial blood base excess by calculation -0.2 mmol/L - 2.5-2.5 Arterial blood oxygen saturation measurement 100 % 94- 100 * Inhaled oxygen flow rate 100 NRG Arterial blood pH measurement with patient temperature correction 7.25 7.37-7.43 Arterial blood carbon dioxide, total measurement (moles/volume) 28.1 mmol/L 21.0-31.0 Body site LEFT RADIAL NRG Assessment of wrist artery patency prior to arterial puncture POSITIVE NRG Setting of ventilation mode YES NRG Measurement of body temperature 98.0 NRG Sputum Gram stain - 11/18/18 08:53 Sputum Gram stain No bacteria seen NRG Bacterial sputum culture - 11/18/18 08:53 FREE TEXT EXTERNAL [facility] SENT SENSITIVITY REPORT 11/21 09:05 NRG QUANTITY OF GROWTH FEW NRG Bacterial sputum culture [id number] [facility] Sensitivity Panel - 11/18/18 08:53 Oxacillin susceptibility test by minimum inhibitory concentration < = NRG Clindamycin susceptibility test by minimum inhibitory concentration R NRG Erythromycin susceptibility test by minimum inhibitory concentration > NRG Trimethoprim/sulfamethoxazole susceptibility test by minimum inhibitoryconcentration < NRG Vancomycin susceptibility test by minimum inhibitory concentration 1 NRG Levofloxacin susceptibility test by minimum inhibitory concentration <= NRG Rifampin susceptibility test by minimum inhibitory concentration <= NRG Cefazolin susceptibility test by minimum inhibitory concentration < = NRG Linezolid susceptibility test by minimum inhibitory concentration 2 NRG Penicillin G susceptibility test by minimum inhibitory concentration > NRG Minocycline susc TRINIDAD <= NRG Bacterial blood culture - 11/18/18 09:28 Bacterial blood culture NG NRG Arterial blood gas measurement - 11/18/18 09:54 Blood pCO2 48 mm[Hg] 35-45 Blood pO2 197 mm[Hg] 79-93 Arterial blood bicarbonate measurement (moles/volume) 27 mmol/L 23-27 Arterial blood base excess by calculation 2.0 mmol/L -2.5 -2.5 Arterial blood oxygen saturation measurement 100 % 94- 100 * Inhaled oxygen flow rate 40% NRG Arterial blood pH measurement with patient temperature correction 7.36 7.37-7.43 Arterial blood carbon dioxide, total measurement (moles/volume) 28.5 mmol/L 21.0-31.0 Body site LEFT RADIAL NRG Assessment of wrist artery patency prior to arterial puncture POSITIVE NRG Setting of ventilation mode YES NRG Measurement of body temperature 98 NRG Encounters ACCT No. Visit Date/Time Discharge Status Pt. Type Provider Facility Loc./Unit Complaint [id number] 11/18/2018 06:58:00 11/18/2018 10:54:00 DIS Emergency JORGE SAAVEDRA, ANA CRISTINA [place] [facility] ER FALL [id number] 10/09/2018 16:03:00 10/09/2018 23:59:59 CLS Preadmit LILLIAN SAAVEDRA, CEASAR [facility] RAD SCREENING [id number] 08/03/2018 01:45:00 08/12/2018 15:55:00 DIS Inpatient CEASAR SNYDER MD [facility] 4TH R HIP FRACTURE [id number] 06/02/2018 09:48:00 06/02/2018 12:51:00 DIS Outpatient JOEY SAAVEDRA, SAI Yu [facility] ENDO HX CROHNS, DIARRHEA [id number] 05/25/2018 15:20:00 05/26/2018 15:25:00 DIS Inpatient DARCI MATIAS MD [facility] 4TH DEHYDRATION,ABD PAIN [id number] 11/21/2017 09:06:00 11/21/2017 19:25:00 DIS Outpatient Aimee LEWIS MD [facility] CATH DYSPENIA,CAD [id number] 11/19/2017 09:07:00 11/19/2017 23:59:59 CLS Outpatient Aimee LEWIS MD [facility] CARD [id number] 11/18/2017 08:41:00 11/18/2017 23:59:59 CLS Outpatient Aimee LEWIS MD [facility] CARD R94.39 I25.10 I25.2 R93.1 [id number] 11/14/2017 07:45:00 11/14/2017 23:59:59 CLS Outpatient Aimee LEWIS MD [facility] CARD E78.5 HYPERLIPIDEMIA [id number] 11/13/2017 09:49:00 11/13/2017 23:59:59 CLS Outpatient Aimee LEWIS MD [facility] CARD I25.10 CAD [id number] 10/03/2017 06:33:00 10/03/2017 15:00:00 DIS Outpatient Aimee LEWIS MD [facility] CATH SEVERE LIFESTYLE LIMITED CLAUDICATION, ABN SAHRA. [id number] 05/20/2016 16:02:00 05/21/2016 13:25:00 DIS Inpatient SINDY GALE DO [facility] ICU ACUTE NARCOTIC OVERDOSE [id number] 01/16/2016 13:12:00 01/16/2016 14:34:00 DIS Emergency KEVON FIERRO DO [facility] ER COUGH DIARRHEA [id number] 08/25/2013 19:24:00 08/27/2013 15:30:00 DIS Inpatient Kassy SAAVEDRA, [facility] MED [id number] 07/06/2016 07:06:00 Document Registration [id number] 12/26/2018 14:20:00 12/26/2018 23:59:59 CLS Outpatient LILLIAN SAAVEDRA, CEASAR [facility]
[2019-01-12 05:07] LABS: BASOPHILS % (AUTO) 0 % (0-10); EOSINOPHILS % (AUTO) 0 % (0-10); HEMATOCRIT 38 % (35-52); HEMOGLOBIN 13.3 G/DL (11.5-16.0); LYMPHOCYTES # (AUTO) 2.7 X 10^3 (1.0-4.0); LYMPHOCYTES % (AUTO) 29 % (12-44); MEAN CORPUSCULAR HEMOGLOBIN 31 PG (25-34); MEAN CORPUSCULAR HGB CONC 35 G/DL (32-36); MEAN CORPUSCULAR VOLUME 89 FL (80-99); MEAN PLATELET VOLUME 10.8 FL (7.4-10.4); MONOCYTES # (AUTO) 0.7 X 10^3 (0.0-1.0); MONOCYTES % (AUTO) 7 % (0-12); NEUTROPHILS # (AUTO) 5.9 X 10^3 (1.8-7.8); NEUTROPHILS % (AUTO) 63 % (42-75); PLATELET COUNT 267 10^3/uL (130-400); RED CELL DISTRIBUTION WIDTH 16.5 % (10.0-14.5); WHITE BLOOD COUNT 9.3 10^3/uL (4.3-11.0)
--- NOTE | 2019-01-12 05:15 | ED Fall/Injury ---
General Chief Complaint: Trauma-Non Activation Stated Complaint: FALL Source: patient Exam Limitations: no limitations (EVANGELINA CARBALLO MD) History of Present Illness Date Seen by Provider: Jan 12, 2019 Time Seen by Provider: 04:54 Initial Comments Here by EMS with report of fall at home. She apparently lost her balance and fell against the wall and onto her hip. Has right hip pain. Does have history of previous repair of the right hip with broad. EMS noted deformity in that area. They did give her 50 of fentanyl. Patient is normally on narcotics but has been tapered off of those. She is also normally on benzodiazepines but ran out and is having some twitching after that. She's been out of that for a few days. Did have fall last month with concussion. Patient states pain is actually much better now. Occurred: just prior to arrival (approximately one hour prior to arrival) Severity: moderate Injuries/Pain Location: pelvis, lower extremity Context: lost balance, tripped Loss of Consciousness: no loss of consciousness Modifying Factors: Improves With Immobilization; Worse With Movement; Improves With Pain Medication Associated Symptoms (Fall): No Abdominal Pain, No Chest Pain; Confusion; No Headache, No Nausea/Vomiting, No Neck Pain, No Shortness of Air; Trouble Walking (EVANGELINA CARBALLO MD) Allergies and Home Medications Allergies Coded Allergies: acetaminophen (Verified Allergy, Unknown, 01/16/16) diphenhydramine (Verified Allergy, Unknown, 08/03/18) oxymorphone (Verified Allergy, Unknown, 08/03/18) varenicline (Verified Allergy, Unknown, 08/03/18) Home Medications Acetaminophen 500 Mg Tablet, 1,000 MG PO Q4H PRN for PAIN-MILD, (Reported) Albuterol Sulfate 18 Gm Hfa.aer.ad, 2 PUFF INH Q4H PRN for SHORTNESS OF BREATH, (Reported) Alprazolam 1 Mg Tablet, 1 MG PO TID PRN for ANXIETY, (Reported) Alprazolam 1 Mg Tablet, 1 MG PO TID PRN for ANXIETY Prescribed by: EVANGELINA CARBALLO on 01/12/19 0632 Aspirin 325 Mg Tablet.dr, 325 MG PO DAILY, (Reported) Atorvastatin Calcium 40 Mg Tablet, 40 MG PO HS, (Reported) Clopidogrel Bisulfate 75 Mg Tablet, 75 MG PO DAILY, (Reported) Famotidine 20 Mg Tablet, 20 MG PO BID Prescribed by: SINDY GALE on 05/26/18 1448 Gabapentin 600 Mg Tablet, 600 MG PO TID, (Reported) Levofloxacin 750 Mg Tablet, 750 MG PO Q48H@1100 Prescribed by: ESTHER HODGSON on 08/12/18 1104 Lisinopril 10 Mg Tablet, 10 MG PO DAILY, (Reported) Metoprolol Tartrate 50 Mg Tablet, 50 MG PO BID, (Reported) Morphine Sulfate 15 Mg Tablet.er, 15 MG PO Q8H Prescribed by: ESTHER HODGSON on 08/12/18 1104 Nitroglycerin 0.4 Mg Tab.subl, 0.4 MG SL UD PRN for CHEST PAIN, (Reported) Pantoprazole Sodium 40 Mg Tablet.dr, 40 MG PO DAILY Prescribed by: SAI COOK on 06/02/18 1145 Paroxetine HCl 20 Mg Tablet, 20 MG PO DAILY, (Reported) Potassium Chloride 10 Meq Tab.er.prt, 10 MEQ PO DAILY Prescribed by: SINDY GALE on 05/26/18 1448 Patient Home Medication List Home Medication List Reviewed: Yes (EVANGELINA CARBALLO MD) Review of Systems Review of Systems Constitutional: see HPI; No chills, No fever Eyes: No Symptoms Reported Ears, Nose, Mouth, Throat: no symptoms reported Respiratory: No cough, No short of breath Cardiovascular: no symptoms reported Gastrointestinal: No abdominal pain, No nausea, No vomiting Genitourinary: no symptoms reported Musculoskeletal: see HPI, joint pain, muscle pain Skin: no symptoms reported Psychiatric/Neurological: See HPI (EVANGELINA CARBALLO MD) All Other Systems Reviewed Negative Unless Noted: Yes (EVANGELNIA CARBALLO MD) Past Dbqdrzn-Dyeykg-Wvymln Hx Past Med/Social Hx: Reviewed Nursing Past Med/Soc Hx (EVANGELINA CARBALLO MD) Patient Social History Alcohol Use: Denies Use Recreational Drug Use: No Smoking Status: Current Everyday Smoker Type Used: Cigars, Cigarettes Recent Foreign Travel: No Contact w/Someone Who Travel: No Recent Hopitalizations: No (EVANGELINA CARBALLO MD) Immunizations Up To Date Tetanus Booster (TDap): Unknown Date of Pneumonia Vaccine: Jul 05, 2017 Date of Influenza Vaccine: Jul 05, 2018 (EVANGELINA CARBALLO MD) Seasonal Allergies Seasonal Allergies: No (EVANGELINA CARBALLO MD) Past Medical History Surgeries: Yes (CARDIAC CATH--STENTS X 2 ) Cardiac, Coronary Stent, Hysterectomy, Orthopedic Respiratory: Yes (SMOKED 1/2 PPD SINCE AGE 9) Asthma, COPD Currently Using CPAP: No Currently Using BIPAP: No Cardiac: Yes (STENTS X 2, PER PT) Coronary Artery Disease, Heart Attack, Hypertension Neurological: Yes (sleepwalking; NUEROPATHY IN LEGS AND HANDS, PER PT) Neuropathy Reproductive Disorders: No Female Reproductive Disorders: Denies Sexually Transmitted Disease: No HIV/AIDS: No Genitourinary: No Gastrointestinal: Yes Colitis, Gastroesophageal Reflux, Crohns Disease Musculoskeletal: Yes (RESTLESS LEGS,CHRONIC NECK AND BACK PAIN; FREQUENT FALLS) Arthritis, Chronic Back Pain Endocrine: No HEENT: Yes (STATED SHE HAS TROUBLE SEEING THE MENU) Loss of Vision: Right Hearing Impairment: Denies Cancer: Yes Skin, Ovarian Did You Recieve Any Treatments: Yes What Type of Treatment Did You: Surgical Intervention Psychosocial: Yes (PANIC ATTACKS, night terrors) Sleep Difficulties, Anxiety, PTSD, Bipolar, Depression Integumentary: Yes ("SKIN CANCER SPOTS") Blood Disorders: No (aplastic anemia) (EVANGELINA CARBALLO MD) Family Medical History Reviewed Nursing Family Hx (EVANGELINA CARBALLO MD) Psychosocial problem G8 SISTER Physical Exam Vital Signs Vital Signs - First Documented 01/12/19 04:53 Temp 98.0 Pulse 70 Resp 18 B/P (MAP) 182/98 (126) Pulse Ox 93 O2 Delivery Room Air (ANA CRISTINA PATEL) Vital Signs Capillary Refill : (EVANGELINA CARBALLO MD) Height, Weight, BMI Height: 5'2.00" Weight: 100lbs. 0oz. 45.570806nt; 14.06 BMI Method:Stated General Appearance: WD/WN, no apparent distress HEENT: PERRL/EOMI, TMs normal, pharynx normal Neck: non-tender, full range of motion, supple, normal inspection Cardiovascular: regular rate, rhythm, no murmur Respiratory: lungs clear, normal breath sounds Gastrointestinal: non tender, soft Extremities: pelvis stable, other (soft tissue density lateral aspect of right hip but mobile within the skin and tissue component. No bony abnormality noted on palpation.) Neurologic/Psychiatric: alert, oriented x 3, other (twitching muscle movements intermittently) Skin: normal color, warm/dry (EVANGELINA CARBALLO MD) Procedures/Interventions Date of ETT Placement: Nov 18, 2018 Time of ETT Placement: 0755 (EVANGELINA CARBALLO MD) Progress/Results/Core Measures Results/Orders Lab Results Laboratory Tests Test 01/12/19 04:51 Range/Units White Blood Count 9.3 4.3-11.0 10^3/uL Red Blood Count 4.33 L 4.35-5.85 10^6/uL Hemoglobin 13.3 11.5-16.0 G/DL Hematocrit 38 35-52 % Mean Corpuscular Volume 89 80-99 FL Mean Corpuscular Hemoglobin 31 25-34 PG Mean Corpuscular Hemoglobin Concent 35 32-36 G/DL Red Cell Distribution Width 16.5 H 10.0-14.5 % Platelet Count 267 130-400 10^3/uL Mean Platelet Volume 10.8 H 7.4-10.4 FL Neutrophils (%) (Auto) 63 42-75 % Lymphocytes (%) (Auto) 29 12-44 % Monocytes (%) (Auto) 7 0-12 % Eosinophils (%) (Auto) 0 0-10 % Basophils (%) (Auto) 0 0-10 % Neutrophils # (Auto) 5.9 1.8-7.8 X 10^3 Lymphocytes # (Auto) 2.7 1.0-4.0 X 10^3 Monocytes # (Auto) 0.7 0.0-1.0 X 10^3 Eosinophils # (Auto) 0.0 0.0-0.3 10^3/uL Basophils # (Auto) 0.0 0.0-0.1 10^3/uL Sodium Level 128 L 135-145 MMOL/L Potassium Level 5.1 H 3.6-5.0 MMOL/L Chloride Level 89 L 98-107 MMOL/L Carbon Dioxide Level 25 21-32 MMOL/L Anion Gap 14 5-14 MMOL/L Blood Urea Nitrogen 8 7-18 MG/DL Creatinine 0.64 0.60-1.30 MG/DL Estimat Glomerular Filtration Rate > 60 BUN/Creatinine Ratio 13 Glucose Level 109 H 70-105 MG/DL Calcium Level 8.5 8.5-10.1 MG/DL Corrected Calcium 8.3 L 8.5-10.1 MG/DL Total Bilirubin 0.3 0.1-1.0 MG/DL Aspartate Amino Transf (AST/SGOT) 36 H 5-34 U/L Alanine Aminotransferase (ALT/SGPT) 14 0-55 U/L Alkaline Phosphatase 98 40-136 U/L Total Protein 8.0 6.4-8.2 GM/DL Albumin 4.3 3.2-4.5 GM/DL (ANA CRISTINA PATEL) Medications Given in ED Current Medications Medications Dose Ordered Sig/Anna Route Start Time Stop Time Status Last Admin Dose Admin Alprazolam 0.5 mg ONCE ONCE PO 01/12/19 06:30 01/12/19 06:31 DC 01/12/19 06:49 0.5 MG Lorazepam 2 mg STK-MED ONCE .ROUTE 01/12/19 04:50 01/12/19 04:53 DC 01/12/19 04:54 0.5 MG Sodium Chloride 500 ml @ 0 mls/hr Q0M ONCE IV 01/12/19 06:08 01/12/19 06:09 DC 01/12/19 06:48 0 MLS/HR (ANA CRISTINA PATEL) Vital Signs/I&O 01/12/19 04:53 Temp 98.0 Pulse 70 Resp 18 B/P (MAP) 182/98 (126) Pulse Ox 93 O2 Delivery Room Air (ANA CRISTINA PATEL) Progress Progress Note : Progress Note Seen and evaluated. CT head ordered. X-ray pelvis and right hip ordered. We will check basic labs. Ativan 0.5 mg IV. Monitor patient. 0625: Pelvic x-ray does not show any acute findings. She does have a little tenderness to the right side. Hydrocodone 5/325 one tab by mouth ordered. We'll also give her 0.5 of Xanax. She is normally on Xanax 1 mg 3 times a day. She is prescribed this monthly. She apparently has been taking 1 in the morning, one in late afternoon and 2 at nighttime so she is out of her Xanax prior to her next prescription which is due approximately the 17 of this month. She has had seizures when running out of her Xanax previously. I will write her a small prescription she had her family will go to the doctor today to see if they can get prescription refill. Pending read CT. Noted dehydration. I will saline 500 mL bolus. (EVANGELINA CARBALLO MD) Progress Note : Time: 06:45 Progress Note Assumed care of the patient at 0645. Patient is feeling much more comfortable after having received some Xanax and Ativan. Reviewed her x-ray of hip and chest no acute findings. We are waiting on a read of the CT of the head. (ANA CRISTINA PATEL) Diagnostic Imaging Diagonstic Imaging: Xray Plain Films/CT/US/NM/MRI: pelvis, hip Comments No acute finding. Heart worsens to be seated in previous physician. Diagonstic Imaging: CT Plain Films/CT/US/NM/MRI: head Comments No acute findings. (EVANGELINA CARBALLO MD) Comments Gamma nail in place with screws that do not appear to have back out or loosened. Comments No CT evidence of acute intracranial abnormality. Remote lacunar infarct and left basal ganglia, similar to prior. Patchy nonspecific white matter disease. Diagonstic Imaging: Xray Plain Films/CT/US/NM/MRI: chest (1v) Comments No acute cardiopulmonary process noted. Reviewed: Reviewed by Me (ANA CRISTINA PATEL) Departure Impression Primary Impression: Contusion of right hip Qualified Codes: S70.01XA - Contusion of right hip, initial encounter Additional Impression: Benzodiazepine withdrawal Qualified Codes: F13.230 - Sedative, hypnotic or anxiolytic dependence with withdrawal, uncomplicated Disposition: 01 HOME, SELF-CARE Condition: Improved Departure-Patient Inst. Decision time for Depature: 06:27 (EVANGELINA CARBALLO MD) Decision time for Depature: 07:32 (ANA CRISTINA PATEL) Referrals: CEASAR SNYDER MD (PCP/Family) Primary Care Physician Patient Instructions: Contusion (DC), Drug Withdrawal (DC) Add. Discharge Instructions: All discharge instructions reviewed with patient and/or family. Voiced understanding. Take medications as prescribed. Do not take medication more than is prescribed as this is dangerous to you and will cause her to run out early. Running out of Xanax prior to your prescription being refilled could cause you to have significant withdrawal and even seizures. You need to talk with your doctor about your dosing and prescription refill. You may take Tylenol 650 mg every 6 hours as needed for pain. Follow-up with your doctor this week for recheck and further evaluation. Return for worse pain, fever, vomiting, weakness, breathing problems or other concerns as needed. Scripts Alprazolam (Xanax) 1 Mg Tablet 1 MG PO TID PRN for ANXIETY, #10 TAB 0 Refills Prov: EVANGELINA CARBALLO MD 01/12/19 EVANGELINA CARBALLO MD Jan 12, 2019 05:15 ANA CRISTINA PATEL Jan 12, 2019 07:26
[2019-01-12 05:24] LABS: ALANINE AMINOTRANSFERASE 14 U/L (0-55); ALBUMIN 4.3 GM/DL (3.2-4.5); ALKALINE PHOSPHATASE 98 U/L (40-136); BILIRUBIN,TOTAL 0.3 MG/DL (0.1-1.0); BUN/CREATININE RATIO 13; CALCIUM 8.5 MG/DL (8.5-10.1); CARBON DIOXIDE 25 MMOL/L (21-32); CHLORIDE 89 MMOL/L (98-107); CREATININE SERUM 0.64 MG/DL (0.60-1.30); GFR ESTIMATED > 60; GLUCOSE 109 MG/DL (70-105); POTASSIUM 5.1 MMOL/L (3.6-5.0); SODIUM 128 MMOL/L (135-145)
[2019-01-12] MEDS ORDERED: NS IV 500 ML 500 ML IV ONE (06:08)
[2019-01-12] MEDS ORDERED: HYDROcodone/APAP 5 MG/325 MG (LORTAB) TAB PO STA (06:20)
[2019-01-12] MEDS ORDERED: ALPRAZolam 0.25 MG (XANAX) TAB PO ONE (06:30)
--- NOTE | 2019-01-12 06:31 | Diagnostic Imaging Report ---
Examination: AP supine chest Indication: Trauma. Comparison: Multiple priors, most recent performed on 01/12/2019. Findings: There is hyperexpansion of the lungs and flattening of the hemidiaphragms, likely reflecting chronic changes of COPD. No focal consolidation. Pulmonary vasculature is normal. No pneumothorax or large pleural effusion. The cardiomediastinal silhouette is unchanged. No acute osseous abnormality. Impression: No acute chest disease. No significant change from prior. Dictated by: Dictated on workstation # [id number]
[2019-01-12] MEDS ORDERED: ALPR1TAB2 PO (06:32)
--- NOTE | 2019-01-12 07:47 | Diagnostic Imaging Report ---
INDICATION: Fall, history of right hip ORIF COMPARISON: 08/08/2018 FINDINGS: Single view of the pelvis and two views of the right hip demonstrate prior stable ORIF of the right hip. There is no acute fracture or dislocation. The bony pelvis is intact. There is a lucency involving the left greater trochanter which is likely artifact. Please correlate with point tenderness. There is no osseous lesion. IMPRESSION: 1. Stable ORIF right hip. No acute fracture identified 2. Lucency involving the greater trochanter of the left hip probably artifact. Please correlate with point tenderness. Dictated by: Dictated on workstation # [id number]
[2019-01-12 08:10] VITALS: BP 120/100
--- NOTE | 2019-01-12 09:14 | Diagnostic Imaging Report ---
PROCEDURE: CT head without contrast. TECHNIQUE: Multiple contiguous axial images were obtained through the brain without the use of intravenous contrast. INDICATION: Traumatic head injury. COMPARISON: Multiple priors, most recently performed on 11/18/2018. FINDINGS: No parenchymal hemorrhage, midline shift, or mass effect. Wilhelm/white matter differentiation is intact. No acute infarct. Focal hypodensity in the left basal ganglia is compatible with an old lacunar infarct. Mild periventricular and subcortical low-density white matter changes. Mild prominence of the ventricles and sulci, consistent with cortical and cerebellar parenchymal volume loss. EXTRA-AXIAL SPACES: No subdural or epidural collections. ORBITS AND PARANASAL SINUSES: The visualized orbits and globes are intact. The visualized paranasal sinuses and mastoid air cells are clear. CALVARIUM AND SOFT TISSUES: The calvarium is intact. No fractures or suspicious bony lesions. The extracranial soft tissues are unremarkable. IMPRESSION: No acute intracranial pathology. No significant change from the prior exam. Findings are in agreement with initial teleradiology report. Dictated by: Dictated on workstation # [id number]
== END 2019-01-12 08:12 | disposition home or self-care (01) ==
LOC: EDUNIT# 04:43 → ER 04:44
DX: S70.01XA Contusion of right hip, initial encounter (principal); F13.230 Sedative, hypnotic or anxiolytic dependence with withdrawal, uncomplicated; I25.10 Atherosclerotic heart disease of native coronary artery without angina pectoris; I25.2 Old myocardial infarction; I10 Essential (primary) hypertension; F41.0 Panic disorder [episodic paroxysmal anxiety]; F31.9 Bipolar disorder, unspecified; F43.10 Post-traumatic stress disorder, unspecified; D64.9 Anemia, unspecified; K21.9 Gastro-esophageal reflux disease without esophagitis; F17.210 Nicotine dependence, cigarettes, uncomplicated; Z95.5 Presence of coronary angioplasty implant and graft; Z91.81 History of falling; Z85.43 Personal history of malignant neoplasm of ovary; Z87.19 Personal history of other diseases of the digestive system; Z85.828 Personal history of other malignant neoplasm of skin; Z90.710 Acquired absence of both cervix and uterus; Z88.8 Allergy status to other drugs, medicaments and biological substances; Z88.1 Allergy status to other antibiotic agents; Z79.51 Long term (current) use of inhaled steroids; Z79.82 Long term (current) use of aspirin; Z79.02 Long term (current) use of antithrombotics/antiplatelets; W01.198A Fall on same level from slipping, tripping and stumbling with subsequent striking against other object, initial encounter
CPT/HCPCS: 36415; 70450; 71045; 80053; 85025

== ENCOUNTER 2019-01-18 16:30 | Inpatient (IN) | payer MEDICARE ==
[~2019-01-18] VITALS: Ht 152.4 cm; Wt 42.9 kg
[2019-01-18] VITALS (9 sets, daily range): BP systolic 154–183; BP diastolic 70–97
[~2019-01-18 16:30] MED LIST changes: +ALPR1TAB2 PO
--- OUTSIDE RECORDS SUMMARY | 2019-01-18 16:37 | XMS REPORT | Continuity of Care Document ---
Author Author [facility] Organization [facility] Address Unknown Phone Unavailable Allergies Active Description Code Type Severity Reaction Onset Reported/Identified Relationship to Patient Clinical Status Yes NUTS Moderate N/ A 11/07/2006 Yes celecoxib Drug Allergy Unknown GI UPSET 01/20/2009 Yes acetaminophen [id number] Drug Allergy Unknown N/A 01/16/2016 Yes diphenhydramine [id number] Drug Allergy Unknown N/A 08/03/2018 Yes oxymorphone [id number] Drug Allergy Unknown N/A 08/03/2018 Yes varenicline [id number] Drug Allergy Unknown N/A 08/03/2018 Medications There [...] DO Ot I25.10 ATHSCL HEART DISEASE OF [place] CORONARY 05/21/2016 SINDY GALE DO Ot I25.2 [...] DO Ot I25.10 ATHSCL HEART DISEASE OF [place] CORONARY 05/21/2016 SINDY GALE DO Ot I25.2 [...] MD Ot I25.10 ATHSCL HEART DISEASE OF [place] CORONARY 10/03/2017 Aimee LEWIS MD Ot I25.2 OLD MYOCARDIAL INFARCTION 10/03/2017 Aimee LEWIS MD Ot I70.213 ATHSCL [place] ARTERIES OF EXTRM W INTRMT 10/03/2017 Aimee LEWIS MD Ot R06.02 SHORTNESS OF BREATH 10/03/2017 Aimee LEWIS MD Ot Z79.82 STORE HOST (CURRENT) USE OF ASPIRIN 10/03/2017 Aimee LEWIS MD Ot Z79.899 OTHER STORE HOST (CURRENT) DRUG THERAPY 10/03/2017 Aimee LEWIS MD Ot Z95.5 PRESENCE OF CORONARY ANGIOPLASTY IMPLANT 10/09/2017 Aimee LEWIS MD Ot E78.5 HYPERLIPIDEMIA, UNSPECIFIED 10/09/2017 Aimee LEWIS MD Ot F17.290 NICOTINE DEPENDENCE, OTHER TOBACCO PRODU 10/09/2017 Aimee LEWIS MD Ot I10 ESSENTIAL (PRIMARY) HYPERTENSION 10/09/2017 Aimee LEWIS MD Ot I25.10 ATHSCL HEART DISEASE OF [place] CORONARY 10/09/2017 Aimee LEWIS MD Ot I25.2 OLD MYOCARDIAL INFARCTION 10/09/2017 Aimee LEWIS MD Ot I70.213 ATHSCL [place] ARTERIES OF EXTR W INTRDE 10/09/2017 Aimee LEWIS MD Ot R06.02 SHORTNESS OF BREATH 10/09/2017 Aimee LEWIS MD Ot Z79.82 STORE HOST (CURRENT) USE OF ASPIRIN 10/09/2017 Aimee LEWIS MD Ot Z79.899 OTHER STORE HOST (CURRENT) DRUG THERAPY 10/09/2017 Aimee LEWIS MD [...] MD Ot I25.10 ATHSCL HEART DISEASE OF [place] CORONARY 11/21/2017 Aimee LEWIS MD Ot I25.2 OLD MYOCARDIAL INFARCTION 11/21/2017 Aimee LEWIS MD Ot I27.20 PULMONARY HYPERTENSION, UNSPECIFIED 11/21/2017 Aimee LEWIS MD Ot I70.213 ATHSCL [place] ARTERIES OF EXTR W [facility] 11/21/2017 Aimee LEWIS MD Ot T82.855A STENOSIS OF CORONARY ARTERY STENT, INITI 11/21/2017 Aimee LEWIS MD Ot Z79.82 SENIOR CARE (CURRENT) USE OF ASPIRIN 11/21/2017 Aimee LEWIS MD Ot Z79.899 OTHER STORE HOST (CURRENT) DRUG THERAPY 11/21/2017 Aimee LEWIS MD [...] MD Ot I25.10 ATHSCL HEART DISEASE OF [place] CORONARY 11/25/2017 Aimee LEWIS MD Ot I25.2 OLD MYOCARDIAL INFARCTION 11/25/2017 Aimee LEWIS MD Ot I27.20 PULMONARY HYPERTENSION, UNSPECIFIED 11/25/2017 Aimee LEWIS MD Ot I70.213 ATHSCL [place] ARTERIES OF EXTRM W INTRMT 11/25/2017 Aimee LEWIS MD Ot T82.855A STENOSIS OF CORONARY ARTERY STENT, INITI 11/25/2017 Aimee LEWIS MD Ot Z79.82 SENIOR CARE (CURRENT) USE OF ASPIRIN 11/25/2017 Aimee LEWIS MD Ot Z79.899 OTHER STORE HOST (CURRENT) DRUG THERAPY 11/25/2017 Aimee LEWIS MD [...] MD Ot I25.10 ATHSCL HEART DISEASE OF [place] CORONARY 11/26/2017 Aimee LEWIS MD Ot I25.2 OLD MYOCARDIAL INFARCTION 11/26/2017 Aimee LEWIS MD Ot I27.20 PULMONARY HYPERTENSION, UNSPECIFIED 11/26/2017 Aimee LEWIS MD Ot I70.213 ATHSCL [place] ARTERIES OF EXTRM W INTRMT 11/26/2017 Aimee LEWIS MD Ot T82.855A STENOSIS OF CORONARY ARTERY STENT, INITI 11/26/2017 Aimee LEWIS MD Ot Z79.82 SENIOR CARE (CURRENT) USE OF ASPIRIN 11/26/2017 Aimee LEWIS MD Ot Z79.899 OTHER STORE HOST (CURRENT) DRUG THERAPY 11/26/2017 Aimee LEWIS MD Ot Z95.5 PRESENCE OF CORONARY ANGIOPLASTY IMPLANT 12/02/2017 Aimee LEWIS MD Ot E78.5 HYPERLIPIDEMIA, UNSPECIFIED 12/02/2017 Aimee LEWIS MD Ot F17.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, UNSPECIFIED, UNCOMP 12/02/2017 Aimee LEWIS MD Ot I10 ESSENTIAL (PRIMARY) HYPERTENSION 12/02/2017 Aimee LEWIS MD Ot I25.10 ATHSCL HEART DISEASE OF [place] CORONARY 12/02/2017 Aimee LEWIS MD Ot R06.02 SHORTNESS OF BREATH 12/02/2017 Aimee LEWIS MD Ot E78.5 HYPERLIPIDEMIA, UNSPECIFIED 12/02/2017 Aimee LEWIS MD Ot F17.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, UNSPECIFIED, UNCOMP 12/02/2017 Aimee LEWIS MD Ot I10 ESSENTIAL (PRIMARY) HYPERTENSION 12/02/2017 Aimee LEWIS MD Ot I25.10 ATHSCL HEART DISEASE OF [place] CORONARY 12/02/2017 Aimee LEWIS MD Ot I73.9 PERIPHERAL VASCULAR DISEASE, UNSPECIFIED 12/02/2017 Aimee LEWIS MD Ot R06.02 SHORTNESS OF BREATH 12/02/2017 Aimee LEWIS MD Ot I25.10 ATHSCL HEART DISEASE OF [place] CORONARY 12/02/2017 Aimee LEWIS MD Ot I25.2 [...] MD Ot I25.10 ATHSCL HEART DISEASE OF [place] CORONARY 12/09/2017 Aimee LEWIS MD Ot R06.02 SHORTNESS OF BREATH 12/17/2017 Aimee LEWIS MD Ot E78.5 HYPERLIPIDEMIA, UNSPECIFIED 12/17/2017 Aimee LEWIS MD Ot F17.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, UNSPECIFIED, UNCOMP 12/17/2017 Aimee LEWIS MD Ot I10 ESSENTIAL (PRIMARY) HYPERTENSION 12/17/2017 Aimee LEWIS MD Ot I25.10 ATHSCL HEART DISEASE OF [place] CORONARY 12/17/2017 Aimee LEWIS MD Ot R06.02 SHORTNESS OF BREATH 02/20/2018 Aimee LEWIS MD Ot E78.5 HYPERLIPIDEMIA, UNSPECIFIED 02/20/2018 Aimee LEWIS MD Ot F17.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, UNSPECIFIED, UNCOMP 02/20/2018 Aimee LEWIS MD Ot I10 ESSENTIAL (PRIMARY) HYPERTENSION 02/20/2018 Aimee LEWIS MD Ot I25.10 ATHSCL HEART DISEASE OF [place] CORONARY 02/20/2018 Aimee LEWIS MD Ot I73.9 PERIPHERAL VASCULAR DISEASE, UNSPECIFIED 02/20/2018 Aimee LEWIS MD Ot R06.02 SHORTNESS OF BREATH 02/20/2018 Aimee LEWIS MD Ot E78.5 HYPERLIPIDEMIA, UNSPECIFIED 02/20/2018 Aimee LEWIS MD Ot F17.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, UNSPECIFIED, UNCOMP 02/20/2018 Aimee LEWIS MD Ot I10 ESSENTIAL (PRIMARY) HYPERTENSION 02/20/2018 Aimee LEWIS MD Ot I25.10 ATHSCL HEART DISEASE OF [place] CORONARY 02/20/2018 Aimee LEWIS MD Ot R06.02 SHORTNESS OF BREATH 02/20/2018 Aimee LEWIS MD Ot I25.10 ATHSCL HEART DISEASE OF [place] CORONARY 02/20/2018 Aimee LEWIS MD Ot I25.2 OLD MYOCARDIAL INFARCTION 02/20/2018 Aimee LEWIS MD Ot R93.1 ABNORMAL FINDINGS ON DX IMAGING OF HEART 02/20/2018 Aimee LEWIS MD Ot R94.39 ABNORMAL RESULT OF OTHER CARDIOVASCULAR 02/20/2018 Aimee LEWIS MD Ot I25.10 ATHSCL HEART DISEASE OF [place] CORONARY 02/20/2018 Aimee LEWIS MD Ot I25.2 [...] MD, Ot I25.10 ATHSCL HEART DISEASE OF [place] CORONARY 05/26/2018 DARCI MATIAS MD Ot I25.2 OLD MYOCARDIAL INFARCTION 05/26/2018 DARCI MATIAS MD Ot J44.9 CHRONIC OBSTRUCTIVE PULMONARY DISEASE, U 05/26/2018 DARCI MATIAS MD, Ot J45.909 UNSPECIFIED ASTHMA, UNCOMPLICATED 05/26/2018 DARCI MATIAS MD Ot K52.9 NONINFECTIVE GASTROENTERITIS AND COLITIS 05/26/2018 DARCI MATIAS MD Ot R10.13 EPIGASTRIC PAIN 05/26/2018 DARCI MATIAS MD Ot R63.4 ABNORMAL WEIGHT LOSS 05/26/2018 DARCI MATIAS MD Ot Z79.82 STORE HOST (CURRENT) USE OF ASPIRIN 05/26/2018 DARCI MATIAS MD Ot Z79.899 OTHER SENIOR CARE (CURRENT) DRUG THERAPY 05/26/2018 DARCI MATIAS MD [...] MD Ot I25.10 ATHSCL HEART DISEASE OF [place] CORONARY 05/26/2018 DARCI MATIAS MD Ot I25.2 OLD MYOCARDIAL INFARCTION 05/26/2018 DARCI MATIAS MD Ot J44.9 CHRONIC OBSTRUCTIVE PULMONARY DISEASE, U 05/26/2018 DARCI MATIAS MD Ot J45.909 UNSPECIFIED ASTHMA, UNCOMPLICATED 05/26/2018 DARCI MATIAS MD Ot K52.9 NONINFECTIVE GASTROENTERITIS AND COLITIS 05/26/2018 DARCI MAITAS MD Ot R10.13 EPIGASTRIC PAIN 05/26/2018 DARCI MATIAS MD Ot R63.4 ABNORMAL WEIGHT LOSS 05/26/2018 DARCI MATIAS MD Ot Z79.82 STORE HOST (CURRENT) USE OF ASPIRIN 05/26/2018 DARCI MATIAS MD Ot Z79.899 OTHER STORE HOST (CURRENT) DRUG THERAPY 05/26/2018 DARCI MATIAS MD [...] Yu Ot I25.10 ATHSCL HEART DISEASE OF [place] CORONARY 06/02/2018 JOEY SAAVEDRA, SAI Yu Ot [...] Yu Ot I25.10 ATHSCL HEART DISEASE OF [place] CORONARY 06/03/2018 JOEY SAAVEDRA, ASI Yu Ot I25.2 OLD MYOCARDIAL INFARCTION 06/03/2018 [...] Yu Ot I25.10 ATHSCL HEART DISEASE OF [place] CORONARY 06/03/2018 JOEY SAAVEDRA, SAI Yu Ot [...] PANIC DISORDER [EPISODIC PAROXYSMAL ANXI 08/05/2018 CEASAR NSYDER MD Ot F43.10 POST-TRAUMATIC STRESS DISORDER, UNSPECIF [...] MD, Ot I25.118 ATHSCL HEART DISEASE OF [place] COR ART W 08/05/2018 CEASAR SNYDER MD, [...] MD, Ot I25.118 ATHSCL HEART DISEASE OF [place] COR ART W 08/08/2018 CEASAR SNYDER MD, [...] MD, Ot I25.118 ATHSCL HEART DISEASE OF [place] COR ART W 08/08/2018 CEASAR SNYDER MD, [...] MD, Ot I25.118 ATHSCL HEART DISEASE OF [place] COR ART W 08/08/2018 CEASAR SNYDER MD, [...] Ot F17.210 NICOTINE DEPENDENCE, CIGARETTES, UNCOMPL 08/09/2018 CEAASR SNYDER MD, Ot F17.290 NICOTINE DEPENDENCE, OTHER [...] MD, Ot I25.118 ATHSCL HEART DISEASE OF [place] COR ART W 08/09/2018 CEASAR SNYDER MD, [...] MD Ot E78.5 HYPERLIPIDEMIA, UNSPECIFIED 08/11/2018 CEASAR SNYDRE MD Ot F17.210 NICOTINE DEPENDENCE, CIGARETTES, UNCOMPL [...] MD, Ot I25.118 ATHSCL HEART DISEASE OF [place] COR ART W 08/11/2018 CEASAR SNYDER MD, [...] MD, Ot I25.118 ATHSCL HEART DISEASE OF [place] COR ART W 08/12/2018 CEASAR SNYDER MD, Ot I25.2 OLD MYOCARDIAL INFARCTION 08/12/2018 CESAAR SNYDER MD Ot I70.0 ATHEROSCLEROSIS OF [place]A [...] MD Ot I25.10 ATHSCL HEART DISEASE OF [place] CORONARY 11/18/2018 Aimee LEWIS MD Ot I73.9 PERIPHERAL VASCULAR DISEASE, UNSPECIFIED 11/18/2018 Aimee LEWIS MD Ot R06.02 SHORTNESS OF BREATH 11/18/2018 Aimee LEWIS MD Ot E78.5 HYPERLIPIDEMIA, UNSPECIFIED 11/18/2018 Aimee LEWIS MD Ot F17.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, UNSPECIFIED, UNCOMP 11/18/2018 Aimee LEWIS MD Ot I10 ESSENTIAL (PRIMARY) HYPERTENSION 11/18/2018 Aimee LEWIS MD Ot I25.10 ATHSCL HEART DISEASE OF [place] CORONARY 11/18/2018 Aimee LEWIS MD Ot R06.02 SHORTNESS OF BREATH 11/18/2018 Aimee LEWIS MD Ot I25.10 ATHSCL HEART DISEASE OF [place] CORONARY 11/18/2018 Aimee LEWIS MD Ot I25.2 OLD MYOCARDIAL INFARCTION 11/18/2018 Aimee LEWIS MD Ot R93.1 ABNORMAL FINDINGS ON DX IMAGING OF HEART 11/18/2018 Aimee LEWIS MD Ot R94.39 ABNORMAL RESULT OF OTHER CARDIOVASCULAR 11/18/2018 Aimee LEWIS MD Ot I25.10 ATHSCL HEART DISEASE OF [place] CORONARY 11/18/2018 Aimee LEWIS MD, Ot I25.2 [...] G25.81 RESTLESS LEGS SYNDROME 11/18/2018 ANA CRISTINA PATEL MD Ot I10 ESSENTIAL (PRIMARY) HYPERTENSION 11/18/2018 ANA CRISTINA PATEL MD Ot I25.10 ATHSCL HEART DISEASE OF [place] CORONARY 11/18/2018 ANA CRISTINA PATEL MD J [...] CRISTINA PATEL MD Ot Y92.002 BATHRM OF [facility] NON-INSTITUT RESDNCE SNGL 11/18/2018 ANA CRISTINA PATEL MD, Ot Z23 ENCOUNTER FOR IMMUNIZATION 11/18/2018 ANA CRISTINA PATEL MD, Ot Z79.02 SENIOR CARE (CURRENT) USE OF ANTITHROMBOTI 11/18/2018 ANA CRISTINA PATEL MD Ot Z79.51 STORE HOST (CURRENT) USE OF INHALED STERO 11/18/2018 ANA CRISTINA PATEL MD, Ot Z79.82 STORE HOST (CURRENT) USE OF ASPIRIN 11/18/2018 ANA CRISTINA [...] MD Ot I25.10 ATHSCL HEART DISEASE OF [place] CORONARY 11/20/2018 ANA CRISTINA PATEL MD, Ot I25.2 OLD MYOCARDIAL INFARCTION 11/20/2018 ANA CRISTINA PATEL MD, Ot J44.9 CHRONIC OBSTRUCTIVE PULMONARY DISEASE, U 11/20/2018 ANA CRISTINA PATEL MD Ot J96.00 ACUTE RESPIRATORY FAILURE, [facility] W HYPOXI 11/20/2018 ANA CRISTINA PATEL MD, Ot K21.9 GASTRO-ESOPHAGEAL REFLUX DISEASE WITHOUT 11/20/2018 ANA CRISTINA PATEL MD Ot R40.2132 COMA SCALE, EYES OPEN, TO SOUND, EMR 11/20/2018 ANA CRISTINA PATEL MD Ot R40.2242 COMA SCALE, BEST VERBAL RESPONSE, CONFUS 11/20/2018 ANA CRISTINA PATEL MD Ot R40.2362 COMA SCALE, BEST MOTOR RESPONSE, OBEYS C 11/20/2018 AAN CRISTINA PATEL MD Ot R56.9 UNSPECIFIED CONVULSIONS 11/20/2018 ANA CRISTINA PATEL MD Ot S01.81XA LACERATION W/O FOREIGN BODY OF OTH PART 11/20/2018 ANA CRISTINA PATEL MD Ot W19.XXXA UNSPECIFIED FALL, INITIAL ENCOUNTER 11/20/2018 ANA CRISTINA PATEL MD Ot Y92.002 BATHRM OF [facility] NON-INSTITUT RESDNCE SNGL 11/20/2018 ANA CRISTINA PATEL MD Ot Z23 ENCOUNTER FOR IMMUNIZATION 11/20/2018 ANA CRISTINA PATEL MD Ot Z79.02 STORE HOST (CURRENT) USE OF ANTITHROMBOTI 11/20/2018 ANA CRISTINA PATEL MD, Ot Z79.51 SENIOR CARE (CURRENT) USE OF INHALED STERO 11/20/2018 ANA CRISTINA PATEL MD, Ot Z79.82 SENIOR CARE (CURRENT) USE OF ASPIRIN 11/20/2018 ANA CRISTINA [...] MD Ot I25.10 ATHSCL HEART DISEASE OF [place] CORONARY 11/20/2018 ANA CRISTINA PATEL MD Ot [...] CRISTINA PATEL MD Ot Y92.002 BATHRM OF [facility] NON-INSTITUT RESDNCE SNGL 11/20/2018 ANA CRISTINA PATEL MD, Ot Z23 ENCOUNTER FOR IMMUNIZATION 11/20/2018 ANA CRISTINA PATEL MD Ot Z79.02 STORE HOST (CURRENT) USE OF ANTITHROMBOTI 11/20/2018 ANA CRISTINA PATEL MD Ot Z79.51 STORE HOST (CURRENT) USE OF INHALED STERO 11/20/2018 ANA CRISTINA PATEL MD, Ot Z79.82 STORE HOST (CURRENT) USE OF ASPIRIN 11/20/2018 ANA CRISTINA PATEL MD Ot Z80.41 FAMILY HISTORY OF MALIGNANT NEOPLASM OF 11/20/2018 ANA CRISTINA PATEL MD Ot Z87.828 PERSONAL HISTORY OF OTH (HEALED) PHYSICA 11/20/2018 ANA CRISTINA PATEL MD, Ot Z88.6 ALLERGY STATUS TO ANALGESIC AGENT STATUS 11/20/2018 ANA CRISTINA PATEL MD Ot Z91.81 HISTORY OF FALLING 11/20/2018 ANA CRISTINA PATEL MD Ot Z95.5 PRESENCE OF CORONARY ANGIOPLASTY IMPLANT 01/14/2019 ANA CRISTINA PATEL MD Ot D64.9 ANEMIA, UNSPECIFIED 01/14/2019 ANA CRISTINA PATEL MD Ot F13.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 01/14/2019 ANA CRISTINA PATEL MD Ot F17.210 NICOTINE DEPENDENCE, CIGARETTES, UNCOMPL 01/14/2019 ANA CRISTINA PATEL MD Ot F31.9 BIPOLAR DISORDER, UNSPECIFIED 01/14/2019 ANA CRISTINA PATEL MD Ot F41.0 PANIC DISORDER [EPISODIC PAROXYSMAL ANXI 01/14/2019 ANA CRISTINA PATEL MD Ot F43.10 POST-TRAUMATIC STRESS DISORDER, UNSPECIF 01/14/2019 ANA CRISTINA PATEL MD Ot I10 ESSENTIAL (PRIMARY) HYPERTENSION 01/14/2019 ANA CRISTINA PATEL MD Ot I25.10 ATHSCL HEART DISEASE OF [place] CORONARY 01/14/2019 ANA CRISTINA PATEL MD Ot I25.2 OLD MYOCARDIAL INFARCTION 01/14/2019 ANA CRISTINA PATEL MD, Ot K21.9 GASTRO-ESOPHAGEAL REFLUX DISEASE WITHOUT 01/14/2019 ANA CRISTINA PATEL MD, Ot M25.551 PAIN IN RIGHT HIP 01/14/2019 ANA CRISTINA PATEL MD, Ot S70.01XA CONTUSION OF RIGHT HIP, INITIAL ENCOUNTE 01/14/2019 ANA CRISTINA PATEL MD Ot W01.198A FALL SAME LEV FROM SLIP/TRIP W STRIKE AG 01/14/2019 ANA CRISTINA PATEL MD, Ot Z79.02 STORE HOST (CURRENT) USE OF ANTITHROMBOTI 01/14/2019 ANA CRISTINA PATEL MD, Ot Z79.51 SENIOR CARE (CURRENT) USE OF INHALED STERO 01/14/2019 ANA CRISTINA PATEL MD, Ot Z79.82 SENIOR CARE (CURRENT) USE OF ASPIRIN 01/14/2019 ANA CRISTINA PATEL MD, Ot Z85.43 PERSONAL HISTORY OF MALIGNANT NEOPLASM O 01/14/2019 ANA CRISTINA PATEL MD, Ot Z85.828 PERSONAL HISTORY OF OTHER MALIGNANT NEOP 01/14/2019 ANA CRISTINA PATEL MD, Ot Z87.19 PERSONAL HISTORY OF OTHER DISEASES OF TH 01/14/2019 ANA CRISTINA PATEL MD, Ot Z88.1 ALLERGY STATUS TO OTHER ANTIBIOTIC AGENT 01/14/2019 ANA CRISTINA PAETL MD, Ot Z88.8 ALLERGY STATUS TO OTH DRUG/MEDS/BIOL SUB 01/14/2019 ANA CRISTINA PATEL MD, Ot Z90.710 ACQUIRED ABSENCE OF BOTH CERVIX AND UTER 01/14/2019 ANA CRISTINA PATEL MD, Ot Z91.81 HISTORY OF FALLING 01/14/2019 ANA CRISTINA PATEL MD, Ot Z95.5 PRESENCE OF CORONARY ANGIOPLASTY IMPLANT Procedures Code Description Performed By Performed On [id number] REPOSITION R UP FEMUR WITH INTRAMED FIX, 08/03/2018 [id number] REPOSITION R UP FEMUR WITH INTRAMED FIX, 08/03/2018 [id number] REVISION OF INT FIX IN R UP [...] - 07:09 MRSA SCREEN RESULT MRSA ISOLATED NR Automated blood complete blood count (hemogram) panel [...] - 09:55 MRSA SCREEN RESULT MRSA ISOLATED [facility] Complete blood count (CBC) with automated white [...] ABO+Rh group OP NRG Transfusion band number [id number] NR Blood group antibody screen NEGATIVE NR [...] indirect bilirubin measurement (mass/volume) 0.1 mg/ dL [facility] Whole blood basic metabolic panel - 11/18/18 [...] panel - 11/18/18 07:15 ABO+Rh group OP [facility] Transfusion band number [id number] [facility] Blood group antibody screen NEGATIVE NR Complete urinalysis with reflex to culture - 11/18/18 07:55 Urine color determination MEAGHAN NRG Urine clarity determination SLIGHTLY CLOUDY NR Urine pH measurement by test strip 5 [...] culture - 11/18/18 08:53 FREE TEXT EXTERNAL [facility] SENT SENSITIVITY REPORT 11/21 09:05 NRG QUANTITY OF GROWTH FEW NRG Bacterial sputum culture [id number] [facility] Sensitivity Panel - 11/18/18 [...] NRG Measurement of body temperature 98 NRG Complete blood count (CBC) with automated white blood cell (WBC) differential - 01/12/19 04:51 Blood leukocytes automated count (number/volume) 9.3 10*3/uL 4.3-11.0 Blood erythrocytes automated count (number/volume) 4.33 10*6/uL 4.35-5.85 Venous blood hemoglobin measurement (mass/volume) 13.3 g/dL 11.5-16.0 Blood hematocrit (volume fraction) 38 % 35-52 Automated erythrocyte mean corpuscular volume 89 [foz_us] 80-99 Automated erythrocyte mean corpuscular hemoglobin (mass per erythrocyte) 31 pg 25-34 Automated erythrocyte mean corpuscular hemoglobin concentration measurement ( mass/volume) 35 g/dL 32-36 Automated erythrocyte distribution width ratio 16.5 % 10.0-14.5 Automated blood platelet count (count/volume) 267 10*3/uL 130-400 Automated blood platelet mean volume measurement 10.8 [foz_us] 7.4-10.4 Automated blood neutrophils/100 leukocytes 63 % 42-75 Automated blood lymphocytes/100 leukocytes 29 % 12-44 Blood monocytes/100 leukocytes 7 % 0-12 Automated blood eosinophils/100 leukocytes 0 % 0-10 Automated blood basophils/100 leukocytes 0 % 0-10 Blood neutrophils automated count (number/volume) 5.9 10*3 1.8-7.8 Blood lymphocytes automated count (number/volume) 2.7 10*3 1.0-4.0 Blood monocytes automated count (number/volume) 0.7 10*3 0.0-1.0 Automated eosinophil count 0.0 10*3/uL 0.0-0.3 Automated blood basophil count (count/volume) 0.0 10*3/uL 0.0-0.1 Comprehensive metabolic panel - 01/12/19 04:51 Serum or plasma sodium measurement (moles/volume) 128 mmol/L 135-145 Serum or plasma potassium measurement (moles/volume) 5.1 mmol/L 3.6-5.0 Serum or plasma chloride measurement (moles/volume) 89 mmol/L 98-107 Carbon dioxide 25 mmol/L 21-32 Serum or plasma anion gap determination (moles/volume) 14 mmol/L 5-14 Serum or plasma urea nitrogen measurement (mass/volume) 8 mg/dL 7-18 Serum or plasma creatinine measurement (mass/volume) 0.64 mg/dL 0.60-1.30 Serum or plasma urea nitrogen/creatinine mass ratio 13 NRG Serum or plasma creatinine measurement with calculation of estimated glomerular filtration rate > NRG Serum or plasma glucose measurement (mass/volume) 109 mg/dL 70-105 Serum or plasma calcium measurement (mass/volume) 8.5 mg/dL 8.5-10.1 Serum or plasma total bilirubin measurement (mass/volume) 0.3 mg/dL 0.1-1.0 Serum or plasma alkaline phosphatase measurement (enzymatic activity/volume) 98 U/L 40-136 Serum or plasma aspartate aminotransferase measurement (enzymatic activity/ volume) 36 U/L 5-34 Serum or plasma alanine aminotransferase measurement (enzymatic activity/volume ) 14 U/L 0-55 Serum or plasma protein measurement (mass/volume) 8.0 g/dL 6.4-8.2 Serum or plasma albumin measurement (mass/volume) 4.3 g/dL 3.2-4.5 CALCIUM CORRECTED 8.3 mg/dL 8.5-10.1 Encounters ACCT No. Visit Date/Time Discharge Status Pt. Type Provider Facility Loc./Unit Complaint [id number] 01/12/2019 04:44:00 01/12/2019 08:12:00 DIS Outpatient ANA CRISTINA PATEL MD [facility] ER FALL [id number] 11/18/2018 06:58:00 11/18/2018 10:54:00 DIS Emergency ANA CRISTINA PATEL MD [facility] ER FALL [id number] 10/09/2018 16:03:00 10/09/2018 23:59:59 CLS Preadmit CEASAR SNYDER MD [facility] RAD SCREENING [id number] 08/03/2018 01:45:00 08/12/2018 15:55:00 DIS Inpatient CEASAR SNYDER MD [facility] 4TH R HIP FRACTURE [id number] 06/02/2018 09:48:00 06/02/2018 12:51:00 DIS Outpatient SAI COOK MD [facility] ENDO HX CROHNS, DIARRHEA [id number] 05/25/2018 15:20:00 05/26/2018 15:25:00 DIS Inpatient DARCI MATIAS MD [facility] 4TH DEHYDRATION,ABD PAIN [id number] 11/21/2017 09:06:00 11/21/2017 19:25:00 DIS Outpatient Aimee LEWIS MD [facility] CATH DYSPENIA,CAD [id number] 11/19/2017 09:07:00 11/19/2017 23:59:59 CLS Outpatient Aimee LEWIS MD [facility] CARD [id number] 11/18/2017 08:41:00 11/18/2017 23:59:59 CLS Outpatient Aimee LEWIS MD [facility] CARD R94.39 I25.10 I25.2 R93.1 [id number] 11/14/2017 07:45:00 11/14/2017 23:59:59 CLS Outpatient Aimee LEWIS MD [facility] CARD E78.5 HYPERLIPIDEMIA [id number] 11/13/2017 09:49:00 11/13/2017 23:59:59 CLS Outpatient Aimee LEWIS MD [facility] CARD I25.10 CAD [id number] 10/03/2017 06:33:00 10/03/2017 15:00:00 DIS Outpatient Aimee LEWIS MD [facility] CATH SEVERE LIFESTYLE LIMITED CLAUDICATION, ABN SAHRA. [id number] 05/20/2016 16:02:00 05/21/2016 13:25:00 DIS Inpatient SINDY GALE DO [facility] ICU ACUTE NARCOTIC OVERDOSE [id number] 01/16/2016 13:12:00 01/16/2016 14:34:00 DIS Emergency KEVON FIERRO DO [facility] ER COUGH DIARRHEA [id number] 08/25/2013 19:24:00 08/27/2013 15:30:00 DIS [facility] [id number] 07/06/2016 07:06:00 Document Registration [id number] 12/26/2018 14:20:00 12/26/2018 23:59:59 CLS Outpatient LILLIAN SAAVEDRA, CEASAR [facility]
[2019-01-18 16:54] LABS: BASOPHILS % (AUTO) 0 % (0-10); EOSINOPHILS # (AUTO) 0.1 10^3/uL (0.0-0.3); EOSINOPHILS % (AUTO) 2 % (0-10); HEMATOCRIT 40 % (35-52); HEMOGLOBIN 12.6 G/DL (11.5-16.0); LYMPHOCYTES # (AUTO) 1.6 X 10^3 (1.0-4.0); LYMPHOCYTES % (AUTO) 23 % (12-44); MEAN CORPUSCULAR HEMOGLOBIN 31 PG (25-34); MEAN CORPUSCULAR HGB CONC 32 G/DL (32-36); MEAN CORPUSCULAR VOLUME 99 FL (80-99); MEAN PLATELET VOLUME 10.1 FL (7.4-10.4); MONOCYTES # (AUTO) 0.5 X 10^3 (0.0-1.0); MONOCYTES % (AUTO) 6 % (0-12); NEUTROPHILS % (AUTO) 70 % (42-75); PLATELET COUNT 241 10^3/uL (130-400); RED CELL DISTRIBUTION WIDTH 17.3 % (10.0-14.5); WHITE BLOOD COUNT 7.2 10^3/uL (4.3-11.0)
[2019-01-18 16:56] LABS: BILIRUBIN,URINE NEGATIVE (NEGATIVE); CLARITY,URINE SLIGHTLY CLOUDY; COLOR,URINE YELLOW; GLUCOSE, URINE (UA) NEGATIVE (NEGATIVE); KETONES,URINE NEGATIVE (NEGATIVE); LEUKOCYTE ESTERASE ,URINE 1+ (NEGATIVE); NITRITE,URINE NEGATIVE (NEGATIVE); PH,URINE 6 (5-9); PROTEIN,URINE 1+ (NEGATIVE); UROBILINOGEN,URINE NORMAL (NORMAL)
[2019-01-18 17:00] LABS: PROTHROMBIN TIME PATIENT 12.9 SEC (12.2-14.7)
[2019-01-18] MEDS ORDERED: RT-ALBUTEROL/IPRATROPIUM 3 ML (DUONEB) VIAL INH ONE (17:00)
[2019-01-18 17:05] LABS: BACTERIA,URINE NEGATIVE /HPF
[2019-01-18 17:11] LABS: ACETAMINOPHEN < 10 UG/ML (10-30); ALANINE AMINOTRANSFERASE 11 U/L (0-55); ALBUMIN 3.6 GM/DL (3.2-4.5); ALKALINE PHOSPHATASE 83 U/L (40-136); BILIRUBIN,TOTAL 0.3 MG/DL (0.1-1.0); BUN/CREATININE RATIO 15; CALCIUM 9.2 MG/DL (8.5-10.1); CARBON DIOXIDE 36 MMOL/L (21-32); CHLORIDE 93 MMOL/L (98-107); CREATININE SERUM 0.61 MG/DL (0.60-1.30); GFR ESTIMATED > 60; GLUCOSE 101 MG/DL (70-105); POTASSIUM 4.5 MMOL/L (3.6-5.0); SALICYLATE < 5.0 MG/DL (5.0-20.0); SODIUM 137 MMOL/L (135-145); TOTAL PROTEIN 6.5 GM/DL (6.4-8.2)
[2019-01-18 17:11] LABS: AMPHETAMINE SCREEN, URINE NEGATIVE (NEGATIVE); BARBITURATE SCREEN URINE NEGATIVE (NEGATIVE); BENZODIAZEPINES SCREEN URINE POSITIVE (NEGATIVE); CANNABINOID SCREEN, URINE NEGATIVE (NEGATIVE); COCAINE SCREEN URINE NEGATIVE (NEGATIVE); METHADONE STAT NEGATIVE (NEGATIVE); METHAMPHETAMINE SCREEN URINE S NEGATIVE (NEGATIVE); OPIATE SCREEN URINE POSITIVE (NEGATIVE); OXYCODONE STAT NEGATIVE (NEGATIVE); PROPOXYPHENE STAT NEGATIVE (NEGATIVE); TRICYCLIC ANTIDEPRESSANTS SCRE NEGATIVE (NEGATIVE)
--- NOTE | 2019-01-18 17:26 | Diagnostic Imaging Report ---
INDICATION: Fall. COMPARISON: Prior examination from 01/12/2019 EXAMINATION: Single view of the chest was obtained. FINDINGS: There is cardiomegaly. There is mild venous congestion. There is no pleural effusion, pneumothorax or pneumonia. Mediastinum is unremarkable. IMPRESSION: Cardiomegaly. There is some mild central pulmonary venous congestion. Dictated by: Dictated on workstation # [id number]
--- NOTE | 2019-01-18 18:18 | ED General ---
General Chief Complaint: Altered Mental Status Stated Complaint: EYES SWELLING/R FOOT SWELLING/AMS Nursing Triage Note: PT PRESENTS TO ED BY PRIVATE AUTO ACCOMPANIED BY SISTER AND DAUGHTER. FAMILY REPORTS THIS WEEK PT HAS BECOME INCREASINGLY DROWSY, CONFUSED, AND FATIGUED. REPORTS SHE HASNT BEEN DRINKING OR EATING VERY WELL THE PAST COUPLE DAYS AND HAS JUST BEEN SLEEPING. PT FAMILY IS CONCERNED PT MAY HAVE TAKEN TOO MANY XANAX. Nursing Sepsis Screen: No Definite Risk History of Present Illness Date Seen by Provider: Jan 18, 2019 Time Seen by Provider: 17:57 Initial Comments The patient presents to ER by private conveyance with her sister and daughter and chief complaint of increased somnolence. They had to load her up in the car by carrying her to bring her in. Patient will not open her eyes but will at least speak to us in one word answers. She lives at home with her sister and her sister says that she spends most of her day sleeping in bed just getting up in the morning to take her pills may go back to bed. She does not eat much or to dias are intact. She denies any suicidal ideation or history of suicide attempts. She says that the patient was recently out of her benzos and had a fall came to the ER was seen and just had a hematoma so sent home with a prescription for 10 Xanax to help get her through until she has her follow-up appointment on next week with primary care. Sister said she keeps all of the patient's medications lockup and dispense them to her in the morning but the patient would not turn over the Xanax to her and they have yet to be able to find it or any of her other benzodiazepines. They suspect maybe she took all of them. She has long-acting morphine but does not have access to that except when her sister gives it to her. She has not endorsed any constitutional symptoms, fevers chills dysuria but she has been incontinent of urine for the past few weeks. The patient endorses that her abdomen is tender to touch and she has nausea but does not give much other history or review of systems. Allergies and Home Medications Allergies Coded Allergies: oxymorphone (Verified Allergy, Unknown, 08/03/18) varenicline (Verified Allergy, Unknown, 08/03/18) Home Medications Acetaminophen 500 Mg Tablet, 1,000 MG PO Q4H PRN for PAIN-MILD, (Reported) Albuterol Sulfate 18 Gm Hfa.aer.ad, 2 PUFF INH Q4H PRN for SHORTNESS OF BREATH, (Reported) Alprazolam 1 Mg Tablet, 1 MG PO TID PRN for ANXIETY, (Reported) Alprazolam 1 Mg Tablet, 1 MG PO TID PRN for ANXIETY Prescribed by: EVANGELINA CARBALLO on 01/12/19 0632 Aspirin 325 Mg Tablet.dr, 325 MG PO DAILY, (Reported) Atorvastatin Calcium 40 Mg Tablet, 40 MG PO HS, (Reported) Clopidogrel Bisulfate 75 Mg Tablet, 75 MG PO DAILY, (Reported) Famotidine 20 Mg Tablet, 20 MG PO BID Prescribed by: SINDY GALE on 05/26/18 1448 Gabapentin 600 Mg Tablet, 600 MG PO TID, (Reported) Levofloxacin 750 Mg Tablet, 750 MG PO Q48H@1100 Prescribed by: ESTHER HODGSON on 08/12/18 1104 Lisinopril 10 Mg Tablet, 10 MG PO DAILY, (Reported) Metoprolol Tartrate 50 Mg Tablet, 50 MG PO BID, (Reported) Morphine Sulfate 15 Mg Tablet.er, 15 MG PO Q8H Prescribed by: ESTHER HODGSON on 08/12/18 1104 Nitroglycerin 0.4 Mg Tab.subl, 0.4 MG SL UD PRN for CHEST PAIN, (Reported) Pantoprazole Sodium 40 Mg Tablet.dr, 40 MG PO DAILY Prescribed by: SAI COOK on 06/02/18 1145 Paroxetine HCl 20 Mg Tablet, 20 MG PO DAILY, (Reported) Potassium Chloride 10 Meq Tab.er.prt, 10 MEQ PO DAILY Prescribed by: SINDY GALE on 05/26/18 1448 Patient Home Medication List Home Medication List Reviewed: Yes Review of Systems Review of Systems Constitutional: No chills, No diaphoresis EENTM: No hearing loss, No ear pain Respiratory: No cough, No short of breath Cardiovascular: No chest pain, No edema Gastrointestinal: No abdominal pain, No constipation, No diarrhea, No nausea Genitourinary: No discharge, No dysuria Musculoskeletal: No back pain, No joint pain Past Mfimsru-Xhjbfs-Szzgmo Hx Patient Social History Alcohol Use: Denies Use Recreational Drug Use: No Type Used: Cigars, Cigarettes Recent Foreign Travel: No Contact w/Someone Who Travel: No Recent Infectious Disease Expo: No Recent Hopitalizations: No Physical Abuse: No Sexual Abuse: No Mistreated: No Fear: No Immunizations Up To Date Tetanus Booster (TDap): Unknown Date of Pneumonia Vaccine: Jul 05, 2017 Date of Influenza Vaccine: Jul 05, 2018 Seasonal Allergies Seasonal Allergies: No Past Medical History Surgeries: Yes (CARDIAC CATH--STENTS X 2 , r hip) Cardiac, Coronary Stent, Hysterectomy, Orthopedic Respiratory: Yes (SMOKED 1/2 PPD SINCE AGE 9) Asthma, COPD Currently Using CPAP: No Currently Using BIPAP: No Cardiac: Yes (STENTS X 2, PER PT) Coronary Artery Disease, Heart Attack, Hypertension Neurological: Yes (sleepwalking; NUEROPATHY IN LEGS AND HANDS, PER PT) Neuropathy Reproductive Disorders: No Female Reproductive Disorders: Denies Sexually Transmitted Disease: No HIV/AIDS: No Genitourinary: No Gastrointestinal: Yes Colitis, Gastroesophageal Reflux, Crohns Disease Musculoskeletal: Yes (RESTLESS LEGS,CHRONIC NECK AND BACK PAIN; FREQUENT FALLS) Arthritis, Chronic Back Pain Endocrine: No HEENT: Yes (STATED SHE HAS TROUBLE SEEING THE MENU) Loss of Vision: Right Hearing Impairment: Denies Cancer: Yes Skin, Ovarian Did You Recieve Any Treatments: Yes What Type of Treatment Did You: Surgical Intervention Psychosocial: Yes (PANIC ATTACKS, night terrors) Sleep Difficulties, Anxiety, PTSD, Bipolar, Depression Integumentary: Yes ("SKIN CANCER SPOTS") Blood Disorders: No (aplastic anemia) Family Medical History Psychosocial problem G8 SISTER Physical Exam Vital Signs Vital Signs - First Documented 01/18/19 01/18/19 16:40 17:12 Temp 98.9 Pulse 84 Resp 20 B/P (MAP) 125/81 (96) Pulse Ox 100 O2 Delivery Nasal Cannula O2 Flow Rate 2.00 Capillary Refill : Less Than 3 Seconds Height, Weight, BMI Height: 5'2.00" Weight: 92lbs. 0oz. 41.327202ir; 14.06 BMI Method:Stated General Appearance: Cachetic, Thin Eyes: Bilateral Eye Normal Inspection, Bilateral Eye PERRL, Bilateral Eye EOMI HEENT: PERRL/EOMI, TMs Normal, Normal ENT Inspection, Pharynx Normal; No Moist Mucous Membranes Neck: Full Range of Motion, Normal Inspection Respiratory: Lungs Clear, Normal Breath Sounds, No Accessory Muscle Use, No Respiratory Distress Cardiovascular: Regular Rate, Rhythm, No Edema, Normal Peripheral Pulses Gastrointestinal: Normal Bowel Sounds, No Organomegaly, Non Tender, Soft Extremity: Normal Capillary Refill, Non Tender, No Pedal Edema Neurologic/Psychiatric: Other (somnolent, react pain and answers questions one- word answer only. GCS 11 points ) Skin: Normal Color, Warm/Dry Focused Exam Lactate Level 01/18/19 15:34: Lactic Acid Level 1.01 Lactic Acid Level Procedures/Interventions Date of ETT Placement: Nov 18, 2018 Time of ETT Placement: 754 Progress/Results/Core Measures Suspected Sepsis Recent Fever Within 48 Hours: No Infection Criteria Present: None New/Unexplained Altered Menta: Yes Sepsis Screen: No Definite Risk SIRS Temperature:98.9 Pulse: 84 Respiratory Rate: 20 Laboratory Tests 01/18/19 15:34: White Blood Count 7.2 Blood Pressure 125 /81 Mean: 96 01/18/19 15:34: Lactic Acid Level 1.01 Laboratory Tests 01/18/19 15:34: Creatinine 0.61, INR Comment 1.0, Platelet Count 241, Total Bilirubin 0.3 Results/Orders Lab Results Laboratory Tests Test 01/18/19 15:34 01/18/19 15:35 01/18/19 20:09 Range/Units White Blood Count 7.2 4.3-11.0 10^3/uL Red Blood Count 4.04 L 4.35-5.85 10^6/uL Hemoglobin 12.6 11.5-16.0 G/DL Hematocrit 40 35-52 % Mean Corpuscular Volume 99 80-99 FL Mean Corpuscular Hemoglobin 31 25-34 PG Mean Corpuscular Hemoglobin Concent 32 32-36 G/DL Red Cell Distribution Width 17.3 H 10.0-14.5 % Platelet Count 241 130-400 10^3/uL Mean Platelet Volume 10.1 7.4-10.4 FL Neutrophils (%) (Auto) 70 42-75 % Lymphocytes (%) (Auto) 23 12-44 % Monocytes (%) (Auto) 6 0-12 % Eosinophils (%) (Auto) 2 0-10 % Basophils (%) (Auto) 0 0-10 % Neutrophils # (Auto) 5.0 1.8-7.8 X 10^3 Lymphocytes # (Auto) 1.6 1.0-4.0 X 10^3 Monocytes # (Auto) 0.5 0.0-1.0 X 10^3 Eosinophils # (Auto) 0.1 0.0-0.3 10^3/uL Basophils # (Auto) 0.0 0.0-0.1 10^3/uL Prothrombin Time 12.9 12.2-14.7 SEC INR Comment 1.0 0.8-1.4 Activated Partial Thromboplast Time 32 24-35 SEC Sodium Level 137 135-145 MMOL/L Potassium Level 4.5 3.6-5.0 MMOL/L Chloride Level 93 L 98-107 MMOL/L Carbon Dioxide Level 36 H 21-32 MMOL/L Anion Gap 8 5-14 MMOL/L Blood Urea Nitrogen 9 7-18 MG/DL Creatinine 0.61 0.60-1.30 MG/DL Estimat Glomerular Filtration Rate > 60 BUN/Creatinine Ratio 15 Glucose Level 101 70-105 MG/DL Lactic Acid Level 1.01 0.50-2.00 MMOL/L Calcium Level 9.2 8.5-10.1 MG/DL Corrected Calcium 9.5 8.5-10.1 MG/DL Total Bilirubin 0.3 0.1-1.0 MG/DL Aspartate Amino Transf (AST/SGOT) 12 5-34 U/L Alanine Aminotransferase (ALT/SGPT) 11 0-55 U/L Alkaline Phosphatase 83 40-136 U/L Total Creatine Kinase 33 29-168 U/L B-Type Natriuretic Peptide 641.5 H <100.0 PG/ML Total Protein 6.5 6.4-8.2 GM/DL Albumin 3.6 3.2-4.5 GM/DL Salicylates Level < 5.0 L 5.0-20.0 MG/DL Acetaminophen Level < 10 L 10-30 UG/ML Serum Alcohol < 10 <10 MG/DL Urine Color YELLOW Urine Clarity SLIGHTLY CLOUDY Urine pH 6 5-9 Urine Specific [place] 1.020 1.016-1.022 Urine Protein 1+ H NEGATIVE Urine Glucose (UA) NEGATIVE NEGATIVE Urine Ketones NEGATIVE NEGATIVE Urine Nitrite NEGATIVE NEGATIVE Urine Bilirubin NEGATIVE NEGATIVE Urine Urobilinogen NORMAL NORMAL MG/DL Urine Leukocyte Esterase 1+ H NEGATIVE Urine RBC (Auto) NEGATIVE NEGATIVE Urine RBC NONE /HPF Urine WBC NONE /HPF Urine Squamous Epithelial Cells NONE /HPF Urine Crystals NONE /LPF Urine Bacteria NEGATIVE /HPF Urine Casts NONE /LPF Urine Mucus NEGATIVE /LPF Urine Culture Indicated CULTURE PENDING Urine Opiates Screen POSITIVE H NEGATIVE Urine Oxycodone Screen NEGATIVE NEGATIVE Urine Methadone Screen NEGATIVE NEGATIVE Urine Propoxyphene Screen NEGATIVE NEGATIVE Urine Barbiturates Screen NEGATIVE NEGATIVE Ur Tricyclic Antidepressants Screen NEGATIVE NEGATIVE Urine Phencyclidine Screen NEGATIVE NEGATIVE Urine Amphetamines Screen NEGATIVE NEGATIVE Urine Methamphetamines Screen NEGATIVE NEGATIVE Urine Benzodiazepines Screen POSITIVE H NEGATIVE Urine Cocaine Screen NEGATIVE NEGATIVE Urine Cannabinoids Screen NEGATIVE NEGATIVE Ammonia 38 H 11-32 UMOL/L Micro Results Microbiology 01/18/19 Influenza Types A,B Antigen (TRINIDAD) - Final, Complete My Orders Orders - ANA CRISTINA PATEL Saline Lock/Iv-Start (01/18/19 18:44) Lactated Ringers (Lr 1000 Ml Iv Solution (01/18/19 18:44) Creatine Kinase (01/18/19 18:53) BNP (01/18/19 18:53) Ammonia (01/18/19 18:56) Ekg Tracing (01/18/19 19:21) Medications Given in ED Current Medications Medications Dose Ordered Sig/Anna Route Start Time Stop Time Status Last Admin Dose Admin Albuterol/ Ipratropium 3 ml ONCE ONCE INH 01/18/19 17:00 01/18/19 17:01 DC 01/18/19 17:12 3 ML Lactated Ringer's 1,000 ml @ 0 mls/hr Q0M ONCE IV 01/18/19 18:44 01/18/19 18:45 DC 01/18/19 19:03 0 MLS/HR Vital Signs/I&O 01/18/19 01/18/19 01/18/19 01/18/19 16:40 17:12 20:34 20:45 Temp 98.9 98.9 98.2 Pulse 84 69 73 Resp 20 20 22 B/P (MAP) 125/81 (96) 101/56 (71) 183/97 (125) Pulse Ox 100 100 94 O2 Delivery Nasal Cannula Nasal Cannula Nasal Cannula O2 Flow Rate 2.00 2.00 5.00 01/18/19 01/18/19 01/18/19 01/18/19 20:47 21:16 21:16 21:20 Pulse 75 73 Pulse Ox 98 98 O2 Delivery Nasal Cannula Nasal Cannula O2 Flow Rate 5.00 3.00 3/17/19 23:55 Temp 97.1 O2 Delivery Nasal Cannula O2 Flow Rate 5.00 Capillary Refill : Less Than 3 Seconds Blood Pressure Mean: 96 Progress Note : Time: 19:19 Progress Note Positive for benzos and opiates which she is prescribed. She says she only took 3 tablets of Xanax that I suspect she used to taking 1 in the morning and one in the afternoon and 2 at night. 3 should not make of this. Don't see any other evidence of other infection or other reasons for her to be somewhat. Bladder ammonia, BMP and CK since she's been laying still for long time. ECG Initial ECG Impression Date: Jan 18, 2019 Initial ECG Impression Time: 17:57 Initial ECG Rate: 67 Initial ECG Rhythm: Normal Sinus Initial ECG Intervals: Normal Initial ECG Impression: Normal Comment No ST elevation or depression. Some artifact from movement. Diagnostic Imaging Diagonstic Imaging: Xray Plain Films/CT/US/NM/MRI: chest Comments NAME: MELANIE SIGALA [facility] REC#: [id number] PHYSICIAN: FORREST BERNAL MD CC: FORREST BERNAL MD; ARNOL GONZALEZ MD Page 1 of 1 RADIOLOGY REPORT [facility] [place] CC: FORREST BERNAL MD; ARNOL GONZALEZ MD Page 1 of 1 RADIOLOGY REPORT NAME: MELANIE SIGALA [facility] REC#: [id number] PT STATUS: REG ER : 1950 PHYSICIAN: FORREST BERNAL MD ADMIT DATE: 01/18/19/ER Signed Date of Exam: 01/18/19 CHEST 1 VIEW, AP/PA ONLY INDICATION: Fall. COMPARISON: Prior examination from 01/12/2019 EXAMINATION: Single view of the chest was obtained. FINDINGS: There is cardiomegaly. There is mild venous congestion. There is no pleural effusion, pneumothorax or pneumonia. Mediastinum is unremarkable. IMPRESSION: Cardiomegaly. There is some mild central pulmonary venous congestion. Dictated by: Dictated on workstation # [id number] Dict: 01/18/19 1716 Trans: 01/18/19 1733 Interpreted by: ARNOL GONZALEZ MD Electronically signed by: ARNOL GONZALEZ MD 01/18/19 1733 Reviewed: Reviewed by Me Departure Communication (Admissions) Time/Spoke to Admitting Phy: 18:59 Discussed case lab and plan for an observation in the ICU for benzodiazepine overdose of unspecified intent. Impression Primary Impression: Benzodiazepine (tranquilizer) overdose Qualified Codes: T42.4X4A - Poisoning by benzodiazepines, undetermined, initial encounter Disposition: ADMITTED INPATIENT Condition: Stable Admissions Decision to Admit Reason: Admit from ER (General) Decision to Admit/Date: Jan 18, 2019 Time/Decision to Admit Time: 18:55 Departure-Patient Inst. Referrals: CEASAR SNYDER MD (PCP/Family) Primary Care Physician ANA CRISTINA PATEL Jan 18, 2019 18:17
[2019-01-18] MEDS ORDERED: LACTATED RINGERS 1,000 ML IV ONE (18:44)
--- NOTE | 2019-01-18 20:30 | NUR ---
Pt to ICU 10 via stretcher with staff at bedside. Pt transferred to ICU bed from cart, pt's oxygen declined into upper 60's, oxygen per nasal cannula increased briefly to assist pt recovery, titrated down as quickly as possible. Pt appears slow to recover from any movement, answers few questions, keeps eyes closed, denies pain at this time. Reports knowing name but does not answer most questions directly, admission done to the best of this RN's ability. See interventions for further assessment.
[2019-01-18] MEDS ORDERED: PROMETHAZINE 25 MG (PHENERGAN) SUPP PR PRN (21:00)
[2019-01-18] MEDS ORDERED: LACTATED RINGERS 1,000 ML IV SCH (21:00)
--- NOTE | 2019-01-18 21:05 | NUR ---
Lidocaine patch noted to right hip, removed at this time.
[2019-01-18] MEDS: ONDANSETRON 4 MG/2 ML (SDV) Z0FRAN IV PRN (21:13)
[2019-01-18] MEDS ORDERED: RT-ALBUTEROL/IPRATROPIUM 3 ML (DUONEB) VIAL INH PRN (22:15)
[2019-01-18] MEDS: FAMOTIDINE 20 MG (PEPCID) TABLET PO SCH (22:31)
[2019-01-18] MEDS: GABAPENTIN 600 MG (NEURONTIN) TAB PO SCH (22:32)
[2019-01-18] MEDS: meTOprolol TARTRATE 50 MG (LOPRESSOR) TAB PO SCH (22:32)
[2019-01-18] MEDS: ATORVASTATIN 40 MG (LIPITOR) TABLET PO SCH (22:32)
--- NOTE | 2019-01-18 23:45 | NUR ---
Pt's oxygen saturation declining steadily into lower 70's, this RN to room, pt had taken oxygen per nasal cannula off. RT Gopal at bedside as well. Pt repositioned for maximum ventilation. Pt's oxygen saturation slow to recover, pt increased to 5L.
[2019-01-19] VITALS (23 sets, daily range): BP systolic 120–168; BP diastolic 56–110
[2019-01-19 03:52] LABS: BASOPHILS % (AUTO) 0 % (0-10); EOSINOPHILS # (AUTO) 0.1 10^3/uL (0.0-0.3); EOSINOPHILS % (AUTO) 1 % (0-10); HEMATOCRIT 39 % (35-52); HEMOGLOBIN 12.2 G/DL (11.5-16.0); LYMPHOCYTES # (AUTO) 1.3 X 10^3 (1.0-4.0); LYMPHOCYTES % (AUTO) 11 % (12-44); MEAN CORPUSCULAR HEMOGLOBIN 31 PG (25-34); MEAN CORPUSCULAR HGB CONC 32 G/DL (32-36); MEAN CORPUSCULAR VOLUME 97 FL (80-99); MEAN PLATELET VOLUME 9.8 FL (7.4-10.4); MONOCYTES # (AUTO) 0.5 X 10^3 (0.0-1.0); MONOCYTES % (AUTO) 4 % (0-12); NEUTROPHILS # (AUTO) 10.1 X 10^3 (1.8-7.8); NEUTROPHILS % (AUTO) 85 % (42-75); PLATELET COUNT 245 10^3/uL (130-400); RED CELL DISTRIBUTION WIDTH 17.1 % (10.0-14.5); WHITE BLOOD COUNT 11.9 10^3/uL (4.3-11.0)
[2019-01-19 04:02] LABS: BUN/CREATININE RATIO 17; CALCIUM 8.8 MG/DL (8.5-10.1); CARBON DIOXIDE 33 MMOL/L (21-32); CHLORIDE 94 MMOL/L (98-107); CREATININE SERUM 0.53 MG/DL (0.60-1.30); GFR ESTIMATED > 60; GLUCOSE 97 MG/DL (70-105); MAGNESIUM 1.9 MG/DL (1.8-2.4); PHOSPHORUS 3.3 MG/DL (2.3-4.7); POTASSIUM 4.4 MMOL/L (3.6-5.0); SODIUM 136 MMOL/L (135-145)
[2019-01-19] MEDS: POTASSIUM CL 10MEQ/50ML IVPB 50 ML IV SCH (05:16)
[2019-01-19] MEDS: MAGNESIUM 1 GM/100 ML IVPB 100 ML IV SCH (05:16)
[2019-01-19] MEDS: KCL 20 MEQ TAB (K-DUR) PO SCH (05:17)
[2019-01-19] MEDS: ACETAMINOPHEN 500 MG TAB (TYLENOL) PO PRN ×2 (05:18→19:54)
--- NOTE | 2019-01-19 06:43 | Pulmonary Consultation ---
History of Present Illness History of Present Illness Date of Consultation 01/19/19 06:37 Time Seen by Provider: 06:38 Date of Admission History of Present Illness 69yo presented to ED secondary to lethargy/somnolence. Family could not wake her up. She lives with sister who states pt spends most of the day sleeping wakes up only to take her meds. Pt had a recent fall was seen in ED and was given a rx for Xanax. Family suspects she may have took extra Xanax tabs. Pt denies suicidal ideation. Pt denies f/c/NS. Pt has been incontinent of urine over the last few weeks. [employer] states pt desaturates very easily and quickly. Pt takes a long time to recover. I am consulted for pulmonary/CC Allergies and Home Medications Allergies Coded Allergies: oxymorphone (Verified Allergy, Unknown, 08/03/18) varenicline (Verified Allergy, Unknown, 08/03/18) Home Medications Acetaminophen 500 Mg Tablet, 1,000 MG PO Q4H PRN for PAIN-MILD, (Reported) Albuterol Sulfate 18 Gm Hfa.aer.ad, 2 PUFF INH Q4H PRN for SHORTNESS OF BREATH, (Reported) Alprazolam 1 Mg Tablet, 1 MG PO TID PRN for ANXIETY, (Reported) Alprazolam 1 Mg Tablet, 1 MG PO TID PRN for ANXIETY Prescribed by: EVANGELINA CARBALLO on 01/12/19 0632 Aspirin 325 Mg Tablet.dr, 325 MG PO DAILY, (Reported) Atorvastatin Calcium 40 Mg Tablet, 40 MG PO HS, (Reported) Clopidogrel Bisulfate 75 Mg Tablet, 75 MG PO DAILY, (Reported) Famotidine 20 Mg Tablet, 20 MG PO BID Prescribed by: SINDY GALE on 05/26/18 1448 Gabapentin 600 Mg Tablet, 600 MG PO TID, (Reported) Levofloxacin 750 Mg Tablet, 750 MG PO Q48H@1100 Prescribed by: ESTHER HODGSON on 08/12/18 1104 Lisinopril 10 Mg Tablet, 10 MG PO DAILY, (Reported) Metoprolol Tartrate 50 Mg Tablet, 50 MG PO BID, (Reported) Morphine Sulfate 15 Mg Tablet.er, 15 MG PO Q8H Prescribed by: ESTHER HODGSON on 08/12/18 1104 Nitroglycerin 0.4 Mg Tab.subl, 0.4 MG SL UD PRN for CHEST PAIN, (Reported) Pantoprazole Sodium 40 Mg Tablet.dr, 40 MG PO DAILY Prescribed by: SAI COOK on 06/02/18 1145 Paroxetine HCl 20 Mg Tablet, 20 MG PO DAILY, (Reported) Potassium Chloride 10 Meq Tab.er.prt, 10 MEQ PO DAILY Prescribed by: SINDY GALE on 05/26/18 1448 Past Fviinxr-Pdbold-Nqbqtu Hx Patient Social History Alcohol Use: Denies Use Recreational Drug Use: No Type Used: Cigars, Cigarettes Recent Foreign Travel: No Contact w/Someone Who Travel: No Recent Infectious Disease Expo: No Recent Hopitalizations: No Physical Abuse: No Sexual Abuse: No Mistreated: No Fear: No Immunizations Up To Date Tetanus Booster (TDap): Unknown Date of Pneumonia Vaccine: Jul 05, 2017 Date of Influenza Vaccine: Jul 05, 2018 Seasonal Allergies Seasonal Allergies: No Past Medical History Surgeries: Yes (CARDIAC CATH--STENTS X 2 , r hip) Cardiac, Coronary Stent, Hysterectomy, Orthopedic Respiratory: Yes (SMOKED 1/2 PPD SINCE AGE 9) Asthma, COPD Currently Using CPAP: No Currently Using BIPAP: No Cardiac: Yes (STENTS X 2, PER PT) Coronary Artery Disease, Heart Attack, Hypertension Neurological: Yes (sleepwalking; NUEROPATHY IN LEGS AND HANDS, PER PT) Neuropathy Reproductive Disorders: No Female Reproductive Disorders: Denies Sexually Transmitted Disease: No HIV/AIDS: No Genitourinary: No Gastrointestinal: Yes Colitis, Gastroesophageal Reflux, Crohns Disease Musculoskeletal: Yes (RESTLESS LEGS,CHRONIC NECK AND BACK PAIN; FREQUENT FALLS) Arthritis, Chronic Back Pain Endocrine: No HEENT: Yes (STATED SHE HAS TROUBLE SEEING THE MENU) Loss of Vision: Right Hearing Impairment: Denies Cancer: Yes Skin, Ovarian Did You Recieve Any Treatments: Yes What Type of Treatment Did You: Surgical Intervention Psychosocial: Yes (PANIC ATTACKS, night terrors) Sleep Difficulties, Anxiety, PTSD, Bipolar, Depression Integumentary: Yes ("SKIN CANCER SPOTS") Blood Disorders: No (aplastic anemia) Family Medical History Psychosocial problem G8 SISTER Review of Systems Time Seen by Provider: 07:20 Constitutional: Weakness, Malaise; No: Fever, Chills, Sweats, Other Eyes: No: Pain, Vision change, Conjunctivae inflammation, Eyelid inflammation, Other, Redness ENT: No: Ear pain, Ear discharge, Nose pain, Nose discharge, Nose congestion, Mouth pain, Mouth swelling, Throat pain, Throat swelling, Other Respiratory: Cough, Dry, Shortness of breath, SOB with excertion, Wheezing; No : Hemoptysis Cardiovascular: Palpitations, Orthopnea, Paroxysmal Noc. Dyspnea; No: Chest Pain, Edema, Lt Headedness, Other Gastrointestinal: No: Nausea, Vomiting, Abdominal Pain, Diarrhea, Constipation , Melena, Hematochezia, Other Genitourinary: Frequency, Incontinence Neurological: Incoordination, Confusion Sepsis Event Evaluation Height, Weight, BMI Height: 5'0.00" Weight: 97lbs. 7.0oz. 44.168453zu; 18.6 BMI Method:Stated Exam Exam Vital Signs Date Time Temp Pulse Resp B/P (MAP) Pulse Ox O2 Delivery O2 Flow Rate FiO2 01/19/19 06:00 70 21 143/78 (99) 94 Nasal Cannula 3.00 01/19/19 05:00 77 26 124/101 (109) 92 Nasal Cannula 3.00 01/19/19 04:00 Nasal Cannula 3.00 01/19/19 04:00 71 18 138/76 (96) 94 Nasal Cannula 3.00 01/19/19 03:17 97.3 Nasal Cannula 3.00 01/19/19 03:00 71 17 136/71 (92) 98 Nasal Cannula 5.00 01/19/19 02:00 72 22 168/98 (121) 96 Nasal Cannula 5.00 01/19/19 01:00 72 19 148/76 (100) 99 Nasal Cannula 5.00 01/19/19 01:00 72 01/19/19 00:00 Nasal Cannula 5.00 01/18/19 23:55 97.1 Nasal Cannula 5.00 01/18/19 23:30 74 28 167/83 (111) 90 Nasal Cannula 3.00 01/18/19 23:00 85 26 168/92 (117) 92 Nasal Cannula 3.00 01/18/19 22:30 73 22 154/84 (107) 95 Nasal Cannula 3.00 01/18/19 22:00 76 25 154/74 (100) 94 Nasal Cannula 3.00 01/18/19 21:30 84 17 177/70 (105) 94 Nasal Cannula 3.00 01/18/19 21:20 Nasal Cannula 3.00 01/18/19 21:16 98 Nasal Cannula 5.00 01/18/19 21:16 73 98 01/18/19 21:15 73 22 165/87 (113) 98 Nasal Cannula 5.00 01/18/19 21:00 73 24 161/85 (110) 97 Nasal Cannula 5.00 01/18/19 20:47 75 01/18/19 20:45 98.2 73 22 183/97 (125) 94 Nasal Cannula 5.00 01/18/19 20:34 98.9 69 20 101/56 (71) 100 Nasal Cannula 2.00 01/18/19 20:30 Nasal Cannula 5.00 01/18/19 17:12 100 Nasal Cannula 2.00 01/18/19 16:40 98.9 84 20 125/81 (96) I & O 01/19/19 07:00 Intake Total 1075 ml Output Total 900 ml Balance 175 ml Height & Weight Height: 5'0.00" Weight: 97lbs. 7.0oz. 44.048376ib; 18.6 BMI Method:Stated General Appearance: Chronically ill, Cachetic, Mild Distress, Thin HEENT: PERRL/EOMI, TMs Normal, Normal ENT Inspection, Pharynx Normal; No Moist Mucous Membranes Neck: Full Range of Motion, Normal Inspection Respiratory: Accessory Muscle Use, Crackles, Decreased Breath Sounds Cardiovascular: Regular Rate, Rhythm, No Edema, Normal Peripheral Pulses Capillary Refill: Less Than 3 Seconds Extremity: Normal Capillary Refill, Non Tender, No Pedal Edema Neurologic/Psychiatric: Other (somnolent, react pain and answers questions one- word answer only. GCS 11 points ) Skin: Normal Color, Warm/Dry Results Lab Laboratory Tests 01/18/19 15:34 01/19/19 03:25 Assessment/Plan Assessment/Plan probable benzo OD - denies suicide attempt Acute on chronic respiratory -Check ABG -Give lasix 40mg IV X 1 -Check echocardiogram Pneumonia - probably aspiration -Add Zosyn -Chest xray appears worse -Pt may need bronchoscopy -Check influenza swab -Check greer cultures, strep, legionella Ag CAD hx Hx of hip fx Consult hospice for education. Pt is not ready to transfer to [address] [place] [address]. KATARZYNA MOJICA DO Jan 19, 2019 06:42
[2019-01-19] MEDS ORDERED: FUROSEMIDE 40 MG/4 ML INJ (LASIX) IVP ONE (06:45)
[2019-01-19] MEDS ORDERED: PIPERACILLIN/TAZO 4.5 GM/NS 100 ML IV NR ×2 (07:45)
[2019-01-19] MEDS ORDERED: RT-ALBUTEROL/IPRATROPIUM 3 ML (DUONEB) VIAL INH SCH (08:00)
--- NOTE | 2019-01-19 08:14 | Diagnostic Imaging Report ---
Indication: Overdose. Compared: 01/18 Findings: There is worsening left lung opacification and left lung volume loss. While there is clearly an atelectatic component present, pneumonia superimposed could not be excluded. Impression: Worsened opacity in the left lung with progressive left lung volume loss and at least reflective of a partial atelectasis. Pneumonia superimposed however cannot be excluded. Dictated by: Dictated on workstation # [id number]
[2019-01-19] MEDS ORDERED: KCL 20 MEQ TAB (K-DUR) PO ONE (09:00)
[2019-01-19] MEDS: GABAPENTIN 600 MG (NEURONTIN) TAB PO SCH ×3 (09:23→19:54)
[2019-01-19] MEDS: ASPIRIN E.C. 325 MG (ECOTRIN) TABLET PO SCH (09:23)
[2019-01-19] MEDS: meTOprolol TARTRATE 50 MG (LOPRESSOR) TAB PO SCH ×2 (09:23→19:54)
[2019-01-19] MEDS: PARoxetine 20 MG (PAXIL) TAB PO SCH (09:23)
[2019-01-19] MEDS: CLOPIDOGREL 75 MG (PLAVIX) TABLET PO SCH (09:24)
[2019-01-19] MEDS: FAMOTIDINE 20 MG (PEPCID) TABLET PO SCH (09:24)
--- NOTE | 2019-01-19 09:25 | NUR ---
Pt s Mandaen. Dip Dyer provided prayer and Communion.
[2019-01-19 09:26] LABS: ABG BASE EXCESS 15.6 MMOL/L (-2.5-2.5); ABG OXYGEN SATURATION 87 % (94-100); ABG PCO2 61 MMHG (35-45); ABG PH 7.44 (7.37-7.43); ABG PO2 48 MMHG (79-93); ABG TCO2 42.8 MMOL/L (21.0-31.0)
[2019-01-19 09:28] LABS: ALLENS TEST YES-POS; INSPIRED O2 2; PATIENT TEMP 97.6
--- NOTE | 2019-01-19 09:34 | Physical Therapy Evaluation ---
PT Evaluation-General Medical Diagnosis Admission Date Jan 18, 2019 at 19:05 Medical Diagnosis: Benzo OD Onset Date: Jan 18, 2019 Therapy Diagnosis Therapy Diagnosis: generalized weakness/debility Height/Weight Height (Feet): 5 Height (Inches): 0.00 Weight (Pounds): 97 Weight (Ounces): 7.0 Precautions Precautions/Isolations: Fall Prevention, Standard Precautions Referral Physician: Denise Reason for Referral: Evaluation/Treatment Medical History Pertinent Medical History: Arthritis, CAD, COPD, GERD, HTN, MA, Neuropathy, Smoking Additional Medical History per report, patient is in bed majority of time at home and is not eating or drinking Current History ED secondary to lethargy and not eating or drinking Reviewed History: Yes Social History Home: Single Level Current Living Status: Other Family Entry Into Home: Stairs With Railing PT Steps Into Home: 3 Prior/Core FIM Prior Level of Function Therapy Code Descriptions/Definitions Functional [place] Measure: 0=Not Assessed/NA 4=Minimal Assistance 1=Total Assistance 5=Supervision or Setup 2=Maximal Assistance 6=Modified [place] 3=Moderate Assistance 7=Complete [place] Therapy Quality Codes: 6 Independent with activity with or without an assistive device 5 Patient requires set up or clean up by helper. Patient completes activity by themselves 4 Supervision or touching assist (CGA). [place] provide cues , steadying assist 3 The helper provides less than half the effort to complete the activity 2 The helper provides more than half the effort to complete the activity 1 Dependent. The helper does all the effort to complete an activity 7 Patient refused to complete or attempt activity 9 The patient did not perform the activity before the current illness or injury 88 Not attempted due to Medical conditions or safety concerns Functional Abilities and Goals: Independent: Patient completed the activities by him/herself, with or without an assistive device, with no assistance from a helper. Needed Some Help: Patient needed partial assistance from another person to complete activities. Dependent: A helper completed the activities for the patient. Unknown: Not Applicable: Bed Mobility: 6 Transfers (B,C,W/C) (FIM): 6 Gait: 1 Stairs: 2 Indoor Mobility (Ambulation): Independent Stairs: Independent Prior Devices Use: Other-see list below Prior Device Use: cane ambulates short distances only in home PT Evaluation-Current Subjective Patient agrees to PT. Pain Numeric Pain Scale: 0-No Pain Objective Patient Orientation: Person, Situation Problem Solving: Poor Attachments: Oxygen, Hsieh Catheter ROM/Strength ROM Lower Extremities bilateral LE WFL Strength Lower Extremities 3/5 grossly bilaterally Integumentary/Posture Integumentary refer to nursing notes Bladder Incontinence: Hsieh Cath Posture kyphotic Neuromuscular (Tone, Coordination, Reflexes) grossly intact Sensory Vision: Wears Glasses Hearing: Impaired Sensation Right Lower Extremit: Impaired Sensation Left Lower Extremity: Impaired Transfers Therapy Code Descriptions/Definitions Functional [place] Measure: 0=Not Assessed/NA 4=Minimal Assistance 1=Total Assistance 5=Supervision or Setup 2=Maximal Assistance 6=Modified [place] 3=Moderate Assistance 7=Complete [place] Transfers (B, C, W/C) (FIM): 4 Scootin Rollin Supine to/from Sit: 5 Sit to/from Stand: 4 patient is CGA for safety with sit to stand and transfer to recliner Gait Mode of Locomotion: Walk Anticipated Mode of Locomotion: Walk Gait (FIM): 1 Distance (FIM): 1=up to 49 ft Distance: 8' Gait Level of Assist: 4 Gait Assistive Device: FWW Balance Sitting Static: Fair Sitting Dynamic: Fair Standing Static: Fair Standing Dynamic: Fair Assessment/Needs 69 y.o. inactive female, will be seen short term by skilled PT to address functional strength and mobility to improve current LOF and to safely return to home with family at maximum LOF. Rehab Potential: Guarded Post Rehab Potential-Barriers: compliance PT Senior Stereo Compiler Team Lead Goals Senior Stereo Compiler Team Lead Goals PT Longterm Goals Time Frame: Jan 30, 2019 Transfers (B,C,W/C) (FIM): 6 Gait (FIM): 1 Gait distance (FIM): 1=up to 49 ft Distance: 15 Gait Level of Assist: 5 Gait Assistive Device: FWW, Cane Single Point PT Plan Problem List Problem List: Activity Tolerance, Functional Strength, Safety, Balance, Gait, Transfer Treatment/Plan Treatment Plan: Continue Plan of Care Treatment Plan: Bed Mobility, Education, Functional Activity [place], Functional Strength, Gait, Safety, Therapeutic Exercise, Transfers Treatment Duration: Jan 30, 2019 Frequency: 6 times per week Estimated Hrs Per Day: .25 hour per day Patient and/or Family Agrees t: Yes Discharge Recommendations Therapy D/C Recommendations: Home w/ Family Support, Halfway Placement, Residential (TCU/NH) Time/GCodes Time In: 830 Time Out: 849 Total Billed Treatment Time: 19 Total Billed Treatment 1 visit EVModC 19 min NIDA MYLES PT Jan 19, 2019 09:34
[2019-01-19] MEDS ORDERED: RT-ALBUINH INH (11:27)
[2019-01-19] MEDS ORDERED: LISI-556 PO (11:27)
[2019-01-19] MEDS ORDERED: ONDA4TAB10 PO (11:27)
[2019-01-19] MEDS ORDERED: MORP-33 PO (11:27)
[2019-01-19] MEDS ORDERED: hydrALAZINE (APESOLINE) 20 MG/ML VIAL IV PRN (12:45)
--- NOTE | 2019-01-19 13:56 | Occupational Therapy Eval ---
OT Evaluation-General/PLF Medical Diagnosis Admission Date Jan 18, 2019 at 19:05 Medical Diagnosis: Benzo OD Onset Date: Jan 18, 2019 Therapy Diagnosis Therapy Diagnosis: decreased self care skills Height/Weight Height (Feet): 5 Height (Inches): 0.00 Weight (Pounds): 97 Weight (Ounces): 7.0 Precautions Precautions/Isolations: Fall Prevention, Standard Precautions Referral Physician: Denise Medical History Pertinent Medical History: Arthritis, CAD, COPD, GERD, HTN, [place], Neuropathy, Smoking Additional Medical History cardiac stents, asthma, hip fracture, Crohn's disease, RLS, chronic neck and back pain, panic attacks, anxiety, PTSD, bipolar, depression Reviewed History: Yes Social History Home: Single Level Current Living Status: Other Family (sister) Entry Into Home: Stairs With Railing Steps Into Home: 3 ADL-Prior Level of Function Therapy Code Descriptions/Definitions Functional [place] Measure: 0=Not Assessed/NA 4=Minimal Assistance 1=Total Assistance 5=Supervision or Setup 2=Maximal Assistance 6=Modified [place] 3=Moderate Assistance 7=Complete [place] Therapy Quality Codes: 6 Independent with activity with or without an assistive device 5 Patient requires set up or clean up by helper. Patient completes activity by themselves 4 Supervision or touching assist (CGA). [place] provide cues , steadying assist 3 The helper provides less than half the effort to complete the activity 2 The helper provides more than half the effort to complete the activity 1 Dependent. The helper does all the effort to complete an activity 7 Patient refused to complete or attempt activity 9 The patient did not perform the activity before the current illness or injury 88 Not attempted due to Medical conditions or safety concerns Functional Abilities and Goals: Independent: Patient completed the activities by him/herself, with or without an assistive device, with no assistance from a helper. Needed Some Help: Patient needed partial assistance from another person to complete activities. Dependent: A helper completed the activities for the patient. Unknown: Not Applicable: ADL PLOF Comments Pt states she is normally able to complete basic self care without assist, but has had decreased activity for the last month. Uses cane for mobility. Sister sets up her meds. Pt states she does not get into the shower because she gets too cold. Self Care: Needed Some Help OT Current Status Subjective Pt in bed, agrees to therapy. Mental Status/Objective Patient Orientation: Person Attachments: Hsieh Catheter, IV, Oxygen Current Glasses/Contacts: Yes Hearing Aids: No Dentures/Partials: Yes (upper) Hand Dominance: Right Upper Extremity ROM grossly functional Upper Extremity Strength decreased bilaterally ADL-Treatment ADL-Current Pt supine to sit with supervision. Pt sat EOB without LOB. Sit to stand with CGA. Sidesteps to HOB with hand held assist. Sit to supine with SBA. Pt resting in bed with needs met after session. Therapy Code Descriptions/Definitions Functional [place] Measure: 0=Not Assessed/NA 4=Minimal Assistance 1=Total Assistance 5=Supervision or Setup 2=Maximal Assistance 6=Modified [place] 3=Moderate Assistance 7=Complete [place] Therapy Quality Codes: 6 Independent with activity with or without an assistive device 5 Patient requires set up or clean up by helper. Patient completes activity by themselves 4 Supervision or touching assist (CGA). [place] provide cues , steadying assist 3 The helper provides less than half the effort to complete the activity 2 The helper provides more than half the effort to complete the activity 1 Dependent. The helper does all the effort to complete an activity 7 Patient refused to complete or attempt activity 9 The patient did not perform the activity before the current illness or injury 88 Not attempted due to Medical conditions or safety concerns Eating (FIM): 5 (Pt reports feeding herself after set up) Transfers (B, C, W/C) (FIM): 4 Education OT Patient Education: Rehab process Teaching Recipient: Patient Teaching Methods: Discussion Response to Teaching: Reinforcement Needed OT Short Term Goals Short Term Goals 1=Demonstrate adherence to instructed precautions during ADL tasks. 2=Patient will verbalize/demonstrate understanding of assistive devices/ modifications for ADL. 3=Patient will improve strength/tolerance for activity to enable patient to perform ADL's. OT Skilled Nursing Goals Skilled Nursing Goals Time Frame: Feb 02, 2019 Eating (FIM): 6 Grooming(FIM): 6 Bathing(FIM): 5 (sponge bath is PLOF) Upper Body Dressing(FIM): 5 Lower Body Dressing(FIM): 5 Toileting(FIM): 6 Toilet/Commode Transfer(FIM): 6 Additional Goals: 1-Demonstrate ADL Tasks, 2-Verbalize Understanding, 3- ImproveStrength/[place] 1=Demonstrate adherence to instructed precautions during ADL tasks. 2=Patient will verbalize/demonstrate understanding of assistive devices/ modifications for ADL. 3=Patient will improve strength/tolerance for activity to enable patient to perform ADL's. OT Education/Plan Problem List/Assessment Assessment: Decreased Activ Tolerance, Decreased UE Strength, Dependent Transfers, Impaired Funct Balance, Impaired I ADL's, Impaired Self-Care Skills Pt to benefit from skilled OT intervention for ADL training, transfers, strengthening, and safety education to maximize level of function and allow safe discharge. Discharge Recommendations Plan/Recommendations: Continue POC Treatment Plan/Plan of Care Treatment,Training & Education: Yes Patient would benefit from OT for education, treatment and training to promote independence in ADL's, mobility, safety and/or upper extremity function for ADL' s. Plan of Care: ADL Retraining, Functional Mobility, UE Funct Exercise/Act Treatment Duration: Feb 02, 2019 Frequency: 5 times per week Estimated Hrs Per Day: .25 hour per day Rehab Potential: Guarded Time/GCodes Start Time: 13:05 Stop Time: 13:20 Total Time Billed (hr/min): 15 Billed Treatment Time 1 visit, EVM(15minutes) SCOTT WHITE OT Jan 19, 2019 13:56
[2019-01-19] MEDS: PIPERACILLIN/TAZOBACTAM (BULK) 4.5 GM in NS (IVPB) 100 ML IV SCH ×2 (14:18→21:43)
[2019-01-19] MEDS: RT-ALBUTEROL/IPRATROPIUM 3 ML (DUONEB) VIAL INH SCH ×3 (14:20→19:08)
[2019-01-19] MEDS ORDERED: LEVE500T6 PO (15:59)
--- NOTE | 2019-01-19 16:00 | NUR ---
UPDATED MED REC WITH THE MEDICATIONS THAT HAVE BEEN FILLED RECENTLY ACCORDING TO THE EXT MED HX. I HAVE CALLED THE PATIENTS SISTER RONNIE, WHO ADMINISTERS HER MEDS SEVERAL TIMES AND LEFT A MESSAGE BUT HAVE NOT HEARD BACK FROM HER. I HAD A LIST FAXED OVER FROM MEDICAL RECORDS AT [facility]. THE LIST FROM [facility] DOES NOT INCLUDE METOPROLOL OR LISINOPRIL HOWEVER THEY WERE FILLED FOR 90 DAY SUPPLIES IN THE PAST FEW MONTHS. THE LIST STATES ON ONE LINE NOT TAKING ZOFRAN OR PAXIL HOWEVER FURTHER DOWN STATES THE PATIENT IS TAKING BOTH. ALSO THE LIST INCLUDE KEPPRA WHICH HAS NOT BEEN FILLED SINCE NOVEMBER FOR A 30 DAY SUPPLY. I CALLED BACK TO THE CLINIC TO DISCUSS THESE DISCREPANCIES WITH A NURSE HOWEVER ONE WAS NOT AVAILABLE SO I LEFT A MESSAGE FOR THEM TO CALL BACK. FOR NOW I HAVE NOTED THEM NEEDS ATTENTION ON THE MED REC. WILL UPDATE WHEN I AM ABLE TO VERIFY WITH A NURSE OR SPEAK WITH THE PATIENTS SISTER. Addendum: 01/20/19 at 1330 by CLEM KELSEY [facility] SPOKE WITH THE NURSE LIBAN AT [facility] AT THIS TIME. SHE STATES THE ZOFRAN WAS CHANGED TO A PRN SCHEDULE, PAXIL THE PATIENT IS TAKING, ONE ENTRY WAS MARKED NOT TAKING TO CLEAR UP THE DUPLICATE ORDER ON THE MED LIST. SHE STATES METOPROLOL WAS DISCONTINUED AND THE LISINOPRIL WAS REMOVED FROM HER LIST BECAUSE THE PATIENT REPORTED THAT SHE STOPPED TAKING IT DUE TO HER BLOOD PRESSURE BEING LOW. I LEFT THE KEPPRA ON THE MED REC AT THIS TIME AND NOTED THE PAST DUE FILL DATE, I DID NOT INCLUDE THE PROTONIX ON THE MED REC SINCE IT HAS NOT BEEN FILLED SINCE JUNE. I STILL HAVE NOT BEEN ABLE TO GET IN CONTACT WITH THE PATIENTS SISTER WHO ADMINISTERS THE MEDS.
--- NOTE | 2019-01-19 16:02 | History & Physicial (CHS) ---
HPI History of Present Illness: 69 yo F admitted for altered mental status. Patient AOx3 this AM. States that she does not remember what happened yesterday. States that she has been dealing with her chronic pain but otherwise has been feeling fine prior to admission. Denies any fever or chills. States that her sisters set up her medications for her and she does not remember taking any extra doses or other medications. Last admission was in July for hip fracture. She is on baseline oxygen at 3L continuous but she does take it off at home sometimes. Source: patient Exam Limitations: no limitations Date seen by provider: Jan 19, 2019 Time Seen by Provider: 09:45 Attending Physician Sophia Whitley DO PCP Ceasar Snyder MD Consult Date of Admission Jan 18, 2019 at 19:05 Home Medications Home Medications Reviewed patient Home Medication Reconciliation performed by pharmacy medication reconciliations communication technician and/or nursing. Patients Allergies have been reviewed. Allergies Coded Allergies: oxymorphone (Verified Allergy, Unknown, 08/03/18) varenicline (Verified Allergy, Unknown, 08/03/18) CPS-Qwareg-Xlapry Hx Patient Social History Alcohol Use: Denies Use Recreational Drug Use: No Type Used: Cigars, Cigarettes Recent Foreign Travel: No Contact w/other who traveled: No Recent Hopitalizations: No Recent Infectious Disease Expo: No Immunizations Up To Date Tetanus Booster (TDap): Unknown Date of Pneumonia Vaccine: Jul 05, 2017 Date of Influenza Vaccine: Jul 05, 2018 Past Medical History HTN CAD Asthma Tobacco use OA Family Medical History Significant Family History: No Pertinent Family Hx Family History: Psychosocial problem G8 SISTER Review of Systems (CHC) Constitutional: No chills, No fever; weakness EENTM: no symptoms reported Respiratory: dyspnea on exertion, orthopnea Cardiovascular: no symptoms reported; No chest pain, No edema, No palpitations Gastrointestinal: no symptoms reported; No abdominal pain, No constipation, No diarrhea, No nausea, No vomiting Genitourinary: no symptoms reported; No dysuria, No frequency, No hematuria : No Musculoskeletal: back pain, joint pain Skin: no symptoms reported Psychiatric/Neurological: Anxiety, Depressed Reviewed Test Results Reviewed Test Results Lab Laboratory Tests Test 01/18/19 20:09 01/19/19 03:25 01/19/19 07:45 01/19/19 09:20 Range/Units Ammonia 38 H 11-32 UMOL/L White Blood Count 11.9 H 4.3-11.0 10^3/uL Red Blood Count 3.99 L 4.35-5.85 10^6/uL Hemoglobin 12.2 11.5-16.0 G/DL Hematocrit 39 35-52 % Mean Corpuscular Volume 97 80-99 FL Mean Corpuscular Hemoglobin 31 25-34 PG Mean Corpuscular Hemoglobin Concent 32 32-36 G/DL Red Cell Distribution Width 17.1 H 10.0-14.5 % Platelet Count 245 130-400 10^3/uL Mean Platelet Volume 9.8 7.4-10.4 FL Neutrophils (%) (Auto) 85 H 42-75 % Lymphocytes (%) (Auto) 11 L 12-44 % Monocytes (%) (Auto) 4 0-12 % Eosinophils (%) (Auto) 1 0-10 % Basophils (%) (Auto) 0 0-10 % Neutrophils # (Auto) 10.1 H 1.8-7.8 X 10^3 Lymphocytes # (Auto) 1.3 1.0-4.0 X 10^3 Monocytes # (Auto) 0.5 0.0-1.0 X 10^3 Eosinophils # (Auto) 0.1 0.0-0.3 10^3/uL Basophils # (Auto) 0.0 0.0-0.1 10^3/uL Sodium Level 136 135-145 MMOL/L Potassium Level 4.4 3.6-5.0 MMOL/L Chloride Level 94 L 98-107 MMOL/L Carbon Dioxide Level 33 H 21-32 MMOL/L Anion Gap 9 5-14 MMOL/L Blood Urea Nitrogen 9 7-18 MG/DL Creatinine 0.53 L 0.60-1.30 MG/DL Estimat Glomerular Filtration Rate > 60 BUN/Creatinine Ratio 17 Glucose Level 97 70-105 MG/DL Calcium Level 8.8 8.5-10.1 MG/DL Phosphorus Level 3.3 2.3-4.7 MG/DL Magnesium Level 1.9 1.8-2.4 MG/DL Lactic Acid Level 0.65 0.50-2.00 MMOL/L Blood Gas Puncture Site RR Blood Gas Patient Temperature 97.6 Arterial Blood pH 7.44 H 7.37-7.43 Arterial Blood Partial Pressure CO2 61 H 35-45 MMHG Arterial Blood Partial Pressure O2 48 L 79-93 MMHG Arterial Blood HCO3 41 *H 23-27 MMOL/L Arterial Blood Total CO2 42.8 H 21.0-31.0 MMOL/L Arterial Blood Oxygen Saturation 87 L 94-100 % Arterial Blood Base Excess 15.6 H -2.5-2.5 MMOL/L Jc Test YES-POS Blood Gas Ventilator Setting NA Blood Gas Inspired Oxygen 2 Physical Exam-(CHC) Physical Exam Vital Signs VS - Last 72 Hours, by Label 01/18/19 01/18/19 01/18/19 01/18/19 16:40 17:12 20:30 20:34 Temp 98.9 98.9 Pulse 84 69 Resp 20 20 B/P (MAP) 125/81 (96) 101/56 (71) Pulse Ox 100 100 O2 Delivery Nasal Cannula Nasal Cannula Nasal Cannula O2 Flow Rate 2.00 5.00 2.00 01/18/19 01/18/19 01/18/19 01/18/19 20:45 20:47 21:00 21:15 Temp 98.2 Pulse 73 75 73 73 Resp 22 24 22 B/P (MAP) 183/97 (125) 161/85 (110) 165/87 (113) Pulse Ox 94 97 98 O2 Delivery Nasal Cannula Nasal Cannula Nasal Cannula O2 Flow Rate 5.00 5.00 5.00 01/18/19 01/18/19 01/18/19 01/18/19 21:16 21:16 21:20 21:30 Pulse 73 84 Resp 17 B/P (MAP) 177/70 (105) Pulse Ox 98 98 94 O2 Delivery Nasal Cannula Nasal Cannula Nasal Cannula O2 Flow Rate 5.00 3.00 3.00 01/18/19 01/18/19 01/18/19 01/18/19 22:00 22:30 23:00 23:30 Pulse 76 73 85 74 Resp 25 22 26 28 B/P (MAP) 154/74 (100) 154/84 (107) 168/92 (117) 167/83 (111) Pulse Ox 94 95 92 90 O2 Delivery Nasal Cannula Nasal Cannula Nasal Cannula Nasal Cannula O2 Flow Rate 3.00 3.00 3.00 3.00 01/18/19 01/19/19 01/19/19 01/19/19 23:55 00:00 01:00 01:00 Temp 97.1 Pulse 72 72 Resp 19 B/P (MAP) 148/76 (100) Pulse Ox 99 O2 Delivery Nasal Cannula Nasal Cannula Nasal Cannula O2 Flow Rate 5.00 5.00 5.00 01/19/19 01/19/19 01/19/19 01/19/19 02:00 03:00 03:17 04:00 Temp 97.3 Pulse 72 71 71 Resp 22 17 18 B/P (MAP) 168/98 (121) 136/71 (92) 138/76 (96) Pulse Ox 96 98 94 O2 Delivery Nasal Cannula Nasal Cannula Nasal Cannula Nasal Cannula O2 Flow Rate 5.00 5.00 3.00 3.00 01/19/19 01/19/19 01/19/19 01/19/19 04:00 05:00 06:00 07:00 Pulse 77 70 67 Resp 21 B/P (MAP) 124/101 (109) 143/78 (99) Pulse Ox 92 94 O2 Delivery Nasal Cannula Nasal Cannula Nasal Cannula O2 Flow Rate 3.00 3.00 3.00 01/19/19 01/19/19 01/19/19 01/19/19 07:00 07:11 08:00 08:00 Pulse 67 Resp 21 B/P (MAP) 151/71 (97) 135/83 (100) Pulse Ox 92 92 90 O2 Delivery Nasal Cannula Nasal Cannula Nasal Cannula Nasal Cannula O2 Flow Rate 3.00 3.00 3.00 3.00 01/19/19 01/19/19 01/19/19 01/19/19 09:00 10:00 11:00 12:00 Pulse 79 71 73 67 Resp 18 17 26 B/P (MAP) 123/68 (86) 120/56 (77) 134/66 (88) 139/79 (99) Pulse Ox 89 99 100 99 O2 Delivery Nasal Cannula Nasal Cannula Nasal Cannula Nasal Cannula O2 Flow Rate 3.00 3.00 3.00 3.00 01/19/19 01/19/19 01/19/19 01/19/19 12:00 13:00 14:00 14:21 Pulse 69 77 Resp 17 28 B/P (MAP) 145/74 (97) 153/88 (109) Pulse Ox 98 89 100 O2 Delivery Nasal Cannula Nasal Cannula Nasal Cannula Nasal Cannula O2 Flow Rate 3.00 3.00 3.00 3.00 01/19/19 15:00 Pulse 76 Resp 23 B/P (MAP) 127/68 (87) Pulse Ox 100 O2 Delivery Nasal Cannula O2 Flow Rate 3.00 Capillary Refill : Less Than 3 Seconds General Appearance: WD/WN, no apparent distress Respiratory: chest non-tender, lungs clear, normal breath sounds, no respiratory distress, no accessory muscle use Cardiovascular: normal peripheral pulses, regular rate, rhythm, no edema, no murmur Gastrointestinal: normal bowel sounds, non tender, soft, no organomegaly Back: no CVA tenderness, no vertebral tenderness Extremities: normal range of motion, non-tender, normal inspection, no pedal edema, no calf tenderness, normal capillary refill Neurologic/Psychiatric: account maintenance representative II-XII nml as tested, alert, oriented x 3 Skin: normal color, warm/dry Lymphatic: no adenopathy Assessment/Plan Assessment/Plan Admission Status: Inpatient Order (span 2 midnights) Reason for Inpatient Admission: requiring q1-2 vitals, increased oxygen need and labs (1) Altered mental status Status: Resolved Assessment & Plan: 01/19: Patient is back to her baseline this AM, likely 2/2 to over medications with benzo + opoid medication Qualifiers: Qualified Codes: R40.0 - Somnolence (2) Benzodiazepine (tranquilizer) overdose Status: Acute Assessment & Plan: 01/19: Patient on multiple high risk medications, would recommend titrating patient off Benzo medications as outpatient Qualifiers: Qualified Codes: T42.4X4A - Poisoning by benzodiazepines, undetermined, initial encounter (3) Acute and chronic respiratory failure with hypoxia Status: Acute Assessment & Plan: - Dr Walker following patient, started treatment of possible Asp PNA with Zosyn D1, Baseline oxygen requirement of 3L continuous at home (4) CAD (coronary artery disease) Status: Chronic Assessment & Plan: 01/19: Continue ASA and Plavix, will discuss with cardiology if patient needs to be on full dose ASA as oppose to baby aspirin Qualifiers: Qualified Codes: I25.10 - Atherosclerotic heart disease of [place] coronary artery without angina pectoris (5) HTN (hypertension) Status: Chronic Assessment & Plan: 01/19: Continue home meds Qualifiers: Qualified Codes: I10 - Essential (primary) hypertension (6) Chronic pain Status: Chronic (7) Tobacco abuse Status: Chronic Assessment & Plan: - Recommend cessation (8) DVT prophylaxis Status: Acute Assessment & Plan: - Lovenox Clinical Quality Measures DVT/VTE Risk/Contraindication: Risk Factor Score Per Nursin RFS Level Per Nursing on Admit: 3=High Copy Copies To 1: CEASAR SNYDER MD,DARCI Bates MD Jan 19, 2019 16:02
[2019-01-19] MEDS: ONDANSETRON 4 MG/2 ML (SDV) Z0FRAN IV PRN (16:54)
[2019-01-19] MEDS: ATORVASTATIN 40 MG (LIPITOR) TABLET PO SCH (19:54)
[2019-01-19] MEDS ORDERED: morphine ER 15 MG (MS CONTIN) TAB PO ONE (21:32)
[2019-01-19] MEDS: morphine ER 15 MG (MS CONTIN) TAB PO SCH (21:43)
[2019-01-20] VITALS (14 sets, daily range): BP systolic 112–160; BP diastolic 54–85
[2019-01-20] MEDS: RT-ALBUTEROL/IPRATROPIUM 3 ML (DUONEB) VIAL INH SCH ×4 (02:38→20:27)
[2019-01-20 04:26] LABS: BASOPHILS % (AUTO) 0 % (0-10); EOSINOPHILS # (AUTO) 0.1 10^3/uL (0.0-0.3); EOSINOPHILS % (AUTO) 1 % (0-10); HEMATOCRIT 36 % (35-52); HEMOGLOBIN 11.7 G/DL (11.5-16.0); LYMPHOCYTES # (AUTO) 1.6 X 10^3 (1.0-4.0); LYMPHOCYTES % (AUTO) 22 % (12-44); MEAN CORPUSCULAR HEMOGLOBIN 31 PG (25-34); MEAN CORPUSCULAR HGB CONC 33 G/DL (32-36); MEAN CORPUSCULAR VOLUME 94 FL (80-99); MEAN PLATELET VOLUME 9.7 FL (7.4-10.4); MONOCYTES # (AUTO) 0.6 X 10^3 (0.0-1.0); MONOCYTES % (AUTO) 8 % (0-12); NEUTROPHILS # (AUTO) 5.1 X 10^3 (1.8-7.8); NEUTROPHILS % (AUTO) 69 % (42-75); PLATELET COUNT 221 10^3/uL (130-400); RED CELL DISTRIBUTION WIDTH 16.9 % (10.0-14.5); WHITE BLOOD COUNT 7.4 10^3/uL (4.3-11.0)
[2019-01-20 04:44] LABS: BUN/CREATININE RATIO 22; CALCIUM 8.5 MG/DL (8.5-10.1); CARBON DIOXIDE 33 MMOL/L (21-32); CHLORIDE 95 MMOL/L (98-107); CREATININE SERUM 0.65 MG/DL (0.60-1.30); GFR ESTIMATED > 60; GLUCOSE 108 MG/DL (70-105); MAGNESIUM 1.8 MG/DL (1.8-2.4); PHOSPHORUS 3.4 MG/DL (2.3-4.7); POTASSIUM 3.7 MMOL/L (3.6-5.0); SODIUM 137 MMOL/L (135-145)
[2019-01-20] MEDS: POTASSIUM CL 10MEQ/50ML IVPB 50 ML IV SCH (04:51)
[2019-01-20] MEDS: KCL 20 MEQ TAB (K-DUR) PO SCH (04:52)
[2019-01-20] MEDS: MAGNESIUM 1 GM/100 ML IVPB 100 ML IV SCH (04:52)
[2019-01-20] MEDS: PIPERACILLIN/TAZOBACTAM (BULK) 4.5 GM in NS (IVPB) 100 ML IV SCH ×3 (05:35→22:24)
--- NOTE | 2019-01-20 06:02 | Pulmonary Progress Note ---
Subjective Time Seen by a Provider: 06:07 Subjective/Events-last exam Respiratory [place] pt is doing better however she is now having arrhythmias. Denies CP. Sepsis Event Evaluation Height, Weight, BMI Height: 5'0.00" Weight: 92lbs. 1.8oz. 41.776447rd; 18.6 BMI Method:Stated Focused Exam Lactate Level 01/18/19 15:34: Lactic Acid Level 1.01 01/19/19 07:45: Lactic Acid Level 0.65 Exam Exam Vital Signs Date Time Temp Pulse Resp B/P (MAP) Pulse Ox O2 Delivery O2 Flow Rate FiO2 01/20/19 04:00 61 18 125/66 (85) 98 Nasal Cannula 3.00 01/20/19 03:15 100 Nasal Cannula 3.00 01/20/19 03:15 98.6 01/20/19 03:00 61 16 138/70 (92) 100 Nasal Cannula 3.00 01/20/19 02:40 97 Nasal Cannula 3.00 01/20/19 02:00 61 17 137/75 (95) 100 Nasal Cannula 3.00 01/20/19 01:00 65 18 130/84 (99) 92 Nasal Cannula 3.00 01/20/19 01:00 65 01/20/19 00:00 70 32 130/71 (90) 95 Nasal Cannula 3.00 01/19/19 23:50 99.2 01/19/19 23:50 100 Nasal Cannula 3.00 01/19/19 23:00 68 41 127/67 (87) 93 Nasal Cannula 3.00 01/19/19 22:00 65 20 133/85 (101) 100 Nasal Cannula 3.00 01/19/19 21:00 78 26 144/73 (96) 100 Nasal Cannula 3.00 01/19/19 20:00 82 22 132/68 (89) 100 Nasal Cannula 3.00 01/19/19 19:50 99 Nasal Cannula 3.00 01/19/19 19:40 98.4 99 Nasal Cannula 3.00 01/19/19 19:09 100 Nasal Cannula 3.00 01/19/19 19:00 71 01/19/19 19:00 71 19 124/65 (84) 100 Nasal Cannula 3.00 01/19/19 18:00 80 25 139/110 (120) 92 Nasal Cannula 3.00 01/19/19 17:12 77 25 132/93 (106) 100 Nasal Cannula 3.00 01/19/19 16:00 72 16 124/73 (90) 100 Nasal Cannula 3.00 01/19/19 16:00 99.0 01/19/19 16:00 Nasal Cannula 3.00 01/19/19 15:00 76 23 127/68 (87) 100 Nasal Cannula 3.00 01/19/19 14:21 100 Nasal Cannula 3.00 01/19/19 14:00 77 28 153/88 (109) 89 Nasal Cannula 3.00 01/19/19 13:00 74 01/19/19 13:00 69 17 145/74 (97) 98 Nasal Cannula 3.00 01/19/19 12:00 Nasal Cannula 3.00 01/19/19 12:00 97.8 01/19/19 12:00 67 26 139/79 (99) 99 Nasal Cannula 3.00 01/19/19 11:00 73 17 134/66 (88) 100 Nasal Cannula 3.00 01/19/19 10:00 71 25 120/56 (77) 99 Nasal Cannula 3.00 01/19/19 09:00 79 18 123/68 (86) 89 Nasal Cannula 3.00 01/19/19 08:00 97.6 01/19/19 08:00 Nasal Cannula 3.00 01/19/19 08:00 135/83 (100) 90 Nasal Cannula 3.00 01/19/19 07:11 92 Nasal Cannula 3.00 01/19/19 07:00 67 21 151/71 (97) 92 Nasal Cannula 3.00 01/19/19 07:00 67 01/19/19 06:00 70 21 143/78 (99) 94 Nasal Cannula 3.00 I & O 01/20/19 07:00 Intake Total 2320 ml Output Total 5050 ml Balance -2730 ml Height & Weight Height: 5'0.00" Weight: 92lbs. 1.8oz. 41.228853ge; 18.6 BMI Method:Stated General Appearance: No Apparent Distress, Chronically ill, Cachetic, Thin HEENT: PERRL/EOMI, TMs Normal, Normal ENT Inspection, Pharynx Normal; No Moist Mucous Membranes Neck: Full Range of Motion, Normal Inspection Respiratory: Accessory Muscle Use, Crackles, Decreased Breath Sounds Cardiovascular: Regular Rate, Rhythm, No Edema, Normal Peripheral Pulses Capillary Refill: Less Than 3 Seconds Gastrointestinal: normal bowel sounds, non tender, soft, no organomegaly Extremity: Normal Capillary Refill, Non Tender, No Pedal Edema Neurologic/Psychiatric: Alert, Oriented x3, Other (somnolent, react pain and answers questions one-word answer only. GCS 11 points ) Skin: Normal Color, Warm/Dry Lymphatic: No Adenopathy Results Lab Laboratory Tests 01/18/19 15:34 01/19/19 03:25 01/20/19 04:05 Assessment/Plan Assessment/Plan probable benzo OD - denies suicide attempt Acute on chronic respiratory -CXR looks better today - echocardiogram arrhythmia - No CP, nausea, or diaphoresis -Home meds restarted -Check EKG and troponins -Consult cardiology CHF - both systolic and diastolic -CXR improved after lasix yesterday Tobacco use with probable severe COPD -Out patient testing -Oxygen -SVNs CAD -ASA, Plavix Pneumonia - probably aspiration -Continue Zosyn - influenza swab - neg -Check greer cultures, strep, legionella Ag CAD hx Hx of hip fx KATARZYNA MOJICA DO Jan 20, 2019 06:02
--- NOTE | 2019-01-20 06:12 | NUR ---
Patient having a rhythm change on the monitor. EKG done at this time and shown to Dr Walker. Order for cardiology consult and troponin to be done.
--- NOTE | 2019-01-20 07:22 | Consultation-Cardiology ---
HPI-Cardiology Cardiology Consultation Date of Consultation 01/20/19 Date of Admission Time Seen by Provider: 07:16 Indication: coronary artery disease, arrhythmia HPI 69 years old lady with extensive cardiac history, has history of anxiety, was taking multiple medication, reported that she was having increasing lethargy and somnolence, questionable overdosing on barbiturate. She was admitted and monitored, currently awake, have been complaining of chest pain for the past few months. No change from baseline. Denied any palpitation, denied any suicidal ideation. She is laying down comfortably in bed at this time. She was noted on telemetry to have arrhythmia, it appear to have frequent atrial premature contractions. No pedal edema. No claudications. Home Medications & Allergies Allergies: Coded Allergies: oxymorphone (Verified Allergy, Unknown, 08/03/18) varenicline (Verified Allergy, Unknown, 08/03/18) Home Medication List Reviewed: Yes LYZ-Krmpyz-Cvciku Hx Patient Social History Marital Status: single Alcohol Use: Denies Use Recreational Drug Use: No Type Used: Cigars, Cigarettes Recent Foreign Travel: No Recent Infectious Disease Expo: No Recent Hopitalizations: No Immunizations Up To Date Tetanus Booster (TDap): Unknown Date of Pneumonia Vaccine: Jul 05, 2017 Date of Influenza Vaccine: Jul 05, 2018 Past Medical History past medical history as described below Family Medical History Significant Family History: No Pertinent Family Hx Family History: Psychosocial problem G8 SISTER Review of Systems Constitutional: see HPI, malaise, weakness EENTM: see HPI, no symptoms reported Respiratory: see HPI; No cough; dyspnea on exertion; No hemoptysis, No orthopnea, No phlegm, No short of breath, No stridor, No wheezing, No other Cardiovascular: see HPI, chest pain; No edema, No Hx of Intervention, No palpitations, No syncope, No vascular heart diseas, No other Gastrointestinal: no symptoms reported, see HPI Genitourinary: see HPI Musculoskeletal: no symptoms reported, see HPI Skin: no symptoms reported, see HPI Psychiatric/Neurological: No Symptoms Reported, See HPI Reviewed Test Results Reviewed Test Results Lab Laboratory Tests Test 01/19/19 07:45 01/19/19 09:20 01/20/19 04:05 Range/Units Lactic Acid Level 0.65 0.50-2.00 MMOL/L Blood Gas Puncture Site RR Blood Gas Patient Temperature 97.6 Arterial Blood pH 7.44 H 7.37-7.43 Arterial Blood Partial Pressure CO2 61 H 35-45 MMHG Arterial Blood Partial Pressure O2 48 L 79-93 MMHG Arterial Blood HCO3 41 *H 23-27 MMOL/L Arterial Blood Total CO2 42.8 H 21.0-31.0 MMOL/L Arterial Blood Oxygen Saturation 87 L 94-100 % Arterial Blood Base Excess 15.6 H -2.5-2.5 MMOL/L Jc Test YES-POS Blood Gas Ventilator Setting NA Blood Gas Inspired Oxygen 2 White Blood Count 7.4 4.3-11.0 10^3/uL Red Blood Count 3.79 L 4.35-5.85 10^6/uL Hemoglobin 11.7 11.5-16.0 G/DL Hematocrit 36 35-52 % Mean Corpuscular Volume 94 80-99 FL Mean Corpuscular Hemoglobin 31 25-34 PG Mean Corpuscular Hemoglobin Concent 33 32-36 G/DL Red Cell Distribution Width 16.9 H 10.0-14.5 % Platelet Count 221 130-400 10^3/uL Mean Platelet Volume 9.7 7.4-10.4 FL Neutrophils (%) (Auto) 69 42-75 % Lymphocytes (%) (Auto) 22 12-44 % Monocytes (%) (Auto) 8 0-12 % Eosinophils (%) (Auto) 1 0-10 % Basophils (%) (Auto) 0 0-10 % Neutrophils # (Auto) 5.1 1.8-7.8 X 10^3 Lymphocytes # (Auto) 1.6 1.0-4.0 X 10^3 Monocytes # (Auto) 0.6 0.0-1.0 X 10^3 Eosinophils # (Auto) 0.1 0.0-0.3 10^3/uL Basophils # (Auto) 0.0 0.0-0.1 10^3/uL Sodium Level 137 135-145 MMOL/L Potassium Level 3.7 3.6-5.0 MMOL/L Chloride Level 95 L 98-107 MMOL/L Carbon Dioxide Level 33 H 21-32 MMOL/L Anion Gap 9 5-14 MMOL/L Blood Urea Nitrogen 14 7-18 MG/DL Creatinine 0.65 0.60-1.30 MG/DL Estimat Glomerular Filtration Rate > 60 BUN/Creatinine Ratio 22 Glucose Level 108 H 70-105 MG/DL Calcium Level 8.5 8.5-10.1 MG/DL Phosphorus Level 3.4 2.3-4.7 MG/DL Magnesium Level 1.8 1.8-2.4 MG/DL Troponin I < 0.028 <0.028 NG/ML Physical Exam Vital Signs Vital Signs - First Documented 01/18/19 01/18/19 16:40 17:12 Temp 98.9 Pulse 84 Resp 20 B/P (MAP) 125/81 (96) Pulse Ox 100 O2 Delivery Nasal Cannula O2 Flow Rate 2.00 Capillary Refill : Less Than 3 Seconds Height, Weight, BMI Height: 5'0.00" Weight: 92lbs. 1.8oz. 41.237342be; 18.6 BMI Method:Stated General Appearance: WD/WN, Mild Distress Eyes: Bilateral Eye Normal Inspection, Bilateral Eye PERRL, Bilateral Eye EOMI HEENT: PERRL/EOMI, TMs Normal, Normal ENT Inspection, Pharynx Normal Neck: Full Range of Motion, Normal Inspection, Non Tender, Supple, Carotid Bruit Respiratory: Chest Non Tender, Lungs Clear, Normal Breath Sounds, No Accessory Muscle Use, No Respiratory Distress Cardiovascular: Regular Rate, Rhythm, No Edema, No Gallop, No JVD, No Murmur, Normal Peripheral Pulses Gastrointestinal: Normal Bowel Sounds, No Organomegaly, No Pulsatile Mass, Non Tender, Soft Back: Normal Inspection, No CVA Tenderness, No Vertebral Tenderness Extremity: Normal Capillary Refill, Normal Inspection, Normal Range of Motion, Non Tender, No Calf Tenderness, No Pedal Edema Neurologic/Psychiatric: Alert, Oriented x3, No Motor/Sensory Deficits, Normal Mood/Affect Skin: Normal Color, Warm/Dry Lymphatic: No Adenopathy A/P-Cardiology Admission Diagnosis Lethargy Coronary artery disease Heart tachyarrhythmia Hypertension Tobaccoism COPD Assessment/Plan Lethargy, somnolence, questionable barbiturate overdose, better at this time. Continue to monitor Chest pain, nonspecific etiology, chronic stable angina for which she used sublingual nitroglycerin as needed. Continue to monitor Frequent atrial premature contractions, maintained on metoprolol 50 mg twice daily. Continue to monitor Extensive history of coronary artery disease with multiple stents, history of stents to the distal circumflex artery using 3.013 mm and 2.513 mm done in [place] in 2000, had a cardiac catheterization done by Dr. Brooke in November 2017 which showed mild ostial left main stenosis, LAD has a stent which was patent with mild diffuse disease, circumflex has patent first obtuse marginal branch stent and after the first obtuse marginal branch there is a stent in the proper circumflex artery that has severe stenosis and distal to the first stent there is another stent that is occluded, attempt was made by Dr. Brooke to cross that area that has failed, treated medically, the right coronary artery has moderate disease. Patient was noted to have mild apical hypokinesis with ejection fraction 45-50 percent Shortness of breath, history of COPD, currently stable. Continue to monitor Peripheral arterial disease, claudication, peripheral angiogram was done in September 2017 which showed [id number] disease in the distal abdominal aorta, mild to moderate disease diffusely down to the trifurcation with no obstructive disease, continue to monitor Hypertension, history of borderline low blood pressure. Monitor blood pressure Hyperlipidemia, maintained on statin Pulmonary hypertension Valvular heart disease with moderate mitral regurgitation, moderate to severe tricuspid regurgitation Tobaccoism, still an active smoker. Right hip surgery postoperative - orthopedics; inpatient rehabilitation is recommended. Clinical Quality Measures DVT/VTE Risk/Contraindication: Risk Factor Score Per Nursin RFS Level Per Nursing on Admit: 3=High SAMANTHA OCONNOR MD Jan 20, 2019 07:22
--- NOTE | 2019-01-20 07:58 | Diagnostic Imaging Report ---
INDICATION: Shortness of breath, overdose. COMPARISON: 01/19/2019. FINDINGS: Single view of the chest demonstrates significantly improved aeration left hemithorax. Infiltrates persist but have decreased significantly. There is no pneumothorax or large effusion. Heart is prominent without overt pulmonary edema. Osseous structures are age-appropriate. IMPRESSION: Persistent but significantly decreased infiltrate in the left hemithorax. Dictated by: Dictated on workstation # [id number]
--- NOTE | 2019-01-20 09:19 | Physical Therapy Daily Note ---
PT Daily Note-Current Subjective Patient is more alert and agreeable to participate with PT. Pain Numeric Pain Scale: 0-No Pain Location: No Pain Reported Mental Status Patient Orientation: Normal For Age Attachments: Oxygen, Hsieh Catheter, IV Transfers Therapy Code Descriptions/Definitions Functional [place] Measure: 0=Not Assessed/NA 4=Minimal Assistance 1=Total Assistance 5=Supervision or Setup 2=Maximal Assistance 6=Modified [place] 3=Moderate Assistance 7=Complete [place] Therapy Quality Codes: 6 Independent with activity with or without an assistive device 5 Patient requires set up or clean up by helper. Patient completes activity by themselves 4 Supervision or touching assist (CGA). [place] provide cues , steadying assist 3 The helper provides less than half the effort to complete the activity 2 The helper provides more than half the effort to complete the activity 1 Dependent. The helper does all the effort to complete an activity 7 Patient refused to complete or attempt activity 9 The patient did not perform the activity before the current illness or injury 88 Not attempted due to Medical conditions or safety concerns Transfers (B, C, W/C) (FIM): 7 Scootin Rollin Supine to/from Sit: 7 Sit to/from Stand: 7 Bed to/from Chair: 7 Gait Training Gait (FIM): 1 Distance (FIM): 1=up to 49 ft Distance: 15' Gait Level of Assist: 7 Gait Assistive Device: None functional gait sequence Exercises Seated Therapy Exercises: Ankle pumps, Long arc quads, Hip flexion, Hip abd/add Seated Reps: 25 Assessment Patient is more alert and able to participate with PT. Patient is currently at independent LOF with all gross motor skills and will use a FWW or cane PRN as at home. PT will continue with POC to ensure safe return to home with family. PT Retirement Goals Roughing Mill Operator Goals PT Roughing Mill Operator Goals Time Frame: Jan 30, 2019 Transfers (B,C,W/C) (FIM): 6 Gait (FIM): 1 Gait distance (FIM): 1=up to 49 ft Distance: 15 Gait Level of Assist: 5 Gait Assistive Device: FWW, Cane Single Point PT Plan Treatment/Plan Treatment Plan: Continue Plan of Care Treatment Plan: Bed Mobility, Education, Functional Activity Wilbert, Functional Strength, Gait, Safety, Therapeutic Exercise, Transfers Treatment Duration: Jan 30, 2019 Frequency: 6 times per week Estimated Hrs Per Day: .25 hour per day Patient and/or Family Agrees t: Yes Time/GCodes Time In: 830 Time Out: 841 Total Billed Treatment Time: 11 Total Billed Treatment 1 visit EX 11 min NIDA MYLES PT Jan 20, 2019 09:19
[2019-01-20] MEDS: ASPIRIN E.C. 325 MG (ECOTRIN) TABLET PO SCH (09:20)
[2019-01-20] MEDS: CLOPIDOGREL 75 MG (PLAVIX) TABLET PO SCH (09:21)
[2019-01-20] MEDS: meTOprolol TARTRATE 50 MG (LOPRESSOR) TAB PO SCH ×2 (09:21→21:39)
[2019-01-20] MEDS: FAMOTIDINE 20 MG (PEPCID) TABLET PO SCH (09:21)
[2019-01-20] MEDS: GABAPENTIN 600 MG (NEURONTIN) TAB PO SCH ×3 (09:21→21:39)
[2019-01-20] MEDS: PARoxetine 20 MG (PAXIL) TAB PO SCH (09:22)
[2019-01-20] MEDS: morphine ER 15 MG (MS CONTIN) TAB PO SCH ×2 (09:22→21:39)
--- NOTE | 2019-01-20 10:21 | NUR ---
provided prayer and Communion.
--- NOTE | 2019-01-20 11:15 | Occ Therapy Progress Note ---
Therapy Progress Note Pt. up in chair. States that she is getting ready to have her catheter removed , and is getting ready to transfer to 4th floor. Pt. agrees to shower when she transfers to 4th. Nursing waiting on bed on 4th to transfer pt. to. Will see pt. at that time. 1100 1, visit KSENIA MILNER OT Jan 20, 2019 11:15
--- NOTE | 2019-01-20 11:48 | Progress Note (SOAP) ---
Subjective Subjective/Events-last exam Patient states that she is feeling better. Tolerating PO diet. Denies any shortness of breath or chest pain Review of Systems Date Seen by Provider: Jan 20, 2019 Time Seen by Provider: 09:25 General: No Chills; Fatigue Pulmonary: No Dyspnea; Cough Cardiovascular: No: Chest Pain, Palpitations Gastrointestinal: No: Nausea, Vomiting Musculoskeletal: other (chronic back pain) Focused Exam Lactate Level 01/18/19 15:34: Lactic Acid Level 1.01 01/19/19 07:45: Lactic Acid Level 0.65 Objective Exam Last Set of Vital Signs Vital Signs Date Time Temp Pulse Resp B/P (MAP) Pulse Ox O2 Delivery O2 Flow Rate FiO2 01/20/19 11:02 64 17 Nasal Cannula 3.00 01/20/19 10:00 140/70 (93) 01/20/19 09:00 90 01/20/19 03:15 98.6 Capillary Refill : Less Than 3 Seconds I&O Intake and Output 01/20/19 00:00 Intake Total 2125 ml Output Total 4825 ml Balance -2700 ml Intake Oral 1225 ml IV Total 900 ml Output Urine Total 4825 ml # Bowel Movements 3 General: Alert, Oriented X3, Cooperative, No Acute Distress HEENT: Mucous Memb Moist/[place] Neck Lungs: Clear to Auscultation, Normal Air Movement Heart: Regular Rate Abdomen: Normal Bowel Sounds, Soft, No Tenderness, No Hepatosplenomegaly Extremities: No Edema, No Tenderness/Swelling Skin: No Rashes, No Breakdown Neuro: Normal Speech, Sensation Intact, Cranial Nerves 3-12 NL Results/Procedures Lab Laboratory Tests 01/20/19 04:05: White Blood Count 7.4, Red Blood Count 3.79L, Hemoglobin 11.7, Hematocrit 36, Mean Corpuscular Volume 94, Mean Corpuscular Hemoglobin 31, Mean Corpuscular Hemoglobin Concent 33, Red Cell Distribution Width 16.9H, Platelet Count 221, Mean Platelet Volume 9.7, Neutrophils (%) (Auto) 69, Lymphocytes (%) (Auto) 22, Monocytes (%) (Auto) 8, Eosinophils (%) (Auto) 1, Basophils (%) (Auto) 0, Neutrophils # (Auto) 5.1, Lymphocytes # (Auto) 1.6, Monocytes # (Auto) 0.6, Eosinophils # (Auto) 0.1, Basophils # (Auto) 0.0, Sodium Level 137, Potassium Level 3.7, Chloride Level 95L, Carbon Dioxide Level 33H, Anion Gap 9, Blood Urea Nitrogen 14, Creatinine 0.65, Estimat Glomerular Filtration Rate > 60, BUN/ Creatinine Ratio 22, Glucose Level 108H, Calcium Level 8.5, Phosphorus Level 3.4 , Magnesium Level 1.8, Troponin I < 0.028 01/20/19 10:08: Troponin I < 0.028 Microbiology 01/18/19 Blood Culture - Preliminary, Resulted No growth 01/18/19 MRSA Screen - Final, Complete MRSA not isolated 01/18/19 Urine Culture - Final, Complete NO GROWTH Assessment/Plan Assessment/Plan (1) Acute and chronic respiratory failure with hypoxia Status: Acute Assessment & Plan: - Dr Walker following patient, started treatment of possible Asp PNA with Zosyn D1, Baseline oxygen requirement of 3L continuous at home 01/20: Patient on baseline oxygen, D/c Hsieh and order PT (2) Altered mental status Status: Resolved Assessment & Plan: 01/19: Patient is back to her baseline this AM, likely 2/2 to over medications with benzo + opoid medication Qualifiers: Qualified Codes: R40.0 - Somnolence (3) Benzodiazepine (tranquilizer) overdose Status: Acute Assessment & Plan: 01/19: Patient on multiple high risk medications, would recommend titrating patient off Benzo medications as outpatient Qualifiers: Qualified Codes: T42.4X4A - Poisoning by benzodiazepines, undetermined, initial encounter (4) CAD (coronary artery disease) Status: Chronic Assessment & Plan: 01/19: Continue ASA and Plavix, will discuss with cardiology if patient needs to be on full dose ASA as oppose to baby aspirin 01/20: Patient noted to have arrhythmia, Cardiology consulted Qualifiers: Qualified Codes: I25.10 - Atherosclerotic heart disease of [place] coronary artery without angina pectoris (5) HTN (hypertension) Status: Chronic Assessment & Plan: 01/19: Continue home meds Qualifiers: Qualified Codes: I10 - Essential (primary) hypertension (6) Chronic pain Status: Chronic (7) Tobacco abuse Status: Chronic Assessment & Plan: - Recommend cessation (8) DVT prophylaxis Status: Acute Assessment & Plan: - Lovenox - Plan for d/c home tomorrow Clinical Quality Measures DVT/VTE Risk/Contraindication: Risk Factor Score Per Nursin RFS Level Per Nursing on Admit: 3=High DARCI MATIAS MD Jan 20, 2019 11:48
--- NOTE | 2019-01-20 13:05 | NUR ---
PATIENT ARRIVES TO FLOOR VIA WHEELCHAIR WITH ICU NURSE. REPORT RECEIVED FROM TRINY RICHMOND. PATIENT DENIES ANY NEEDS A THIS TIME. AGREE WITH PREVIOUS RN'S ASSESSMENT. WILL CONTINUE TO MONITOR.
--- NOTE | 2019-01-20 13:25 | NUR ---
Palliative Care RN to ICU to see patient who has recently moved to room 404, she was participating in a shower with OT at the time. Will attempt upon completion.
--- NOTE | 2019-01-20 13:46 | Occupational Ther Daily Note ---
OT Current Status-Daily Note Subjective Pt. reports that her lower back is sore, but does not report a pain level and declines pain medication. Appearance Pt. is in process of transferring to chair in ICU to transfer to fourth floor. OT assists with transfer. Pt. agrees to shower once on fourth floor. Mental Status/Objective Patient Orientation: Person, Place, Time, Situation Therapy Code Descriptions/Definitions Functional [place] Measure: 0=Not Assessed/NA 4=Minimal Assistance 1=Total Assistance 5=Supervision or Setup 2=Maximal Assistance 6=Modified [place] 3=Moderate Assistance 7=Complete [place] Attachments: IV, Oxygen ADL-Treatment Grooming (FIM): 5 (Set up to brush hair after shower.) Bathing (FIM): 5 (SBA in shower to wash all parts.) Lower Body Dressing (FIM): 5 (SBA to doff/don slipper socks while seated.) Transfers (B, C, W/C) (FIM): 5 (SBA for all ADL transfers.) Shower Transfer(FIM): 5 Other Treatment Pt. on 2 1/2 L 02 at transfer time. Pt. showered with oxygen on. Pt. ambulated with SBA to and from shower with no AE needed. After shower, all needs met back in bed. Education OT Patient Education: Correct positioning, Modified ADL techniques, Progress toward Goal/Update tx plan, Purpose of tx/functional activities, Reviewed precautions, Rehab process, Transfer techniques Teaching Recipient: Patient Teaching Methods: Demonstration, Discussion Response to Teaching: Verbalize Understanding, Return Demonstration OT Short Term Goals Short Term Goals 1=Demonstrate adherence to instructed precautions during ADL tasks. 2=Patient will verbalize/demonstrate understanding of assistive devices/ modifications for ADL. 3=Patient will improve strength/tolerance for activity to enable patient to perform ADL's. OT Artistic Director Goals Longterm Goals Time Frame: Feb 02, 2019 Eating (FIM): 6 Grooming(FIM): 6 Bathing(FIM): 5 (sponge bath is PLOF) Upper Body Dressing(FIM): 5 Lower Body Dressing(FIM): 5 Toileting(FIM): 6 Toilet/Commode Transfer(FIM): 6 Additional Goals: 1-Demonstrate ADL Tasks, 2-Verbalize Understanding, 3- ImproveStrength/Wilbert 1=Demonstrate adherence to instructed precautions during ADL tasks. 2=Patient will verbalize/demonstrate understanding of assistive devices/ modifications for ADL. 3=Patient will improve strength/tolerance for activity to enable patient to perform ADL's. OT Education/Plan Problem List/Assessment Assessment: Decreased Activ Tolerance, Impaired I ADL's Pt to benefit from skilled OT intervention for ADL training, transfers, strengthening, and safety education to maximize level of function and allow safe discharge. Discharge Recommendations Plan/Recommendations: Continue POC Therapy D/C Recommendations: Home w/ Family Support Treatment Plan/Plan of Care Treatment,Training & Education: Yes Patient would benefit from OT for education, treatment and training to promote independence in ADL's, mobility, safety and/or upper extremity function for ADL' s. Plan of Care: ADL Retraining, Functional Mobility, UE Funct Exercise/Act Treatment Duration: Feb 02, 2019 Frequency: 5 times per week Estimated Hrs Per Day: .5 hour per day Agreement: Yes Rehab Potential: Good Time/GCodes Start Time: 13:00 Stop Time: 13:30 Total Time Billed (hr/min): 30 Billed Treatment Time 1, ADL x 2 KSENIA MILNER OT Jan 20, 2019 13:46
--- NOTE | 2019-01-20 15:34 | NUR ---
Palliative Care RN in to see patient. We had a good visit and talked of several things. 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 She reports that the pain is the reason that she does not get around much in the house. She says that she take Morphine ER tables BID and that it keeps the pain down, but it only gets to a 5, currently she is at a 7. Patient says that she is able to get herself to the toilet and anywhere in the house. She does not cook but her sister helps her with meals. We talked about other health issues and she says that she is on her last beats of her heart. I took this as an opportunity to ask her about hospice. She says she is very familiar with hospice and is not feeling like she is ready for that at this point. Patients sister, RONNIE, is supposed to be here between 9 and 10 in the morning tomorrow. Hopeful Dr. Allen and myself can visit her together.
[2019-01-20] MEDS ORDERED: ONDANSETRON 4 MG (ZOFRAN) ORAL DISSOLVE TAB PO PRN (16:15)
[2019-01-20] MEDS: ATORVASTATIN 40 MG (LIPITOR) TABLET PO SCH (21:39)
[2019-01-21] VITALS: BP 151/89
[2019-01-21] MEDS: RT-ALBUTEROL/IPRATROPIUM 3 ML (DUONEB) VIAL INH SCH ×2 (01:54→07:29)
[2019-01-21 04:38] VITALS: BP 139/76
[2019-01-21] MEDS: PIPERACILLIN/TAZOBACTAM (BULK) 4.5 GM in NS (IVPB) 100 ML IV SCH (05:30)
--- NOTE | 2019-01-21 07:00 | Pulmonary Progress Note ---
Subjective Time Seen by a Provider: 06:58 Subjective/Events-last exam PT is still requiring oxygen. SOB worse with exertion. Sepsis Event Evaluation Height, Weight, BMI Height: 5'0.00" Weight: 94lbs. 9.0oz. [id number]; 18.6 BMI Method:Stated Focused Exam Lactate Level 01/18/19 15:34: Lactic Acid Level 1.01 01/19/19 07:45: Lactic Acid Level 0.65 Exam Exam Vital Signs Date Time Temp Pulse Resp B/P (MAP) Pulse Ox O2 Delivery O2 Flow Rate FiO2 01/21/19 04:38 97.2 65 20 139/76 (97) 96 Nasal Cannula 3.00 01/21/19 01:57 96 Nasal Cannula 2.00 01/21/19 01:00 68 01/21/19 00:00 97.9 65 18 151/89 (109) 97 Nasal Cannula 3.00 01/20/19 21:32 74 160/78 (105) 01/20/19 20:29 Nasal Cannula 2.00 01/20/19 20:00 98.6 72 18 147/76 (99) 95 Nasal Cannula 3.00 01/20/19 20:00 Nasal Cannula 3.00 01/20/19 19:00 70 01/20/19 15:40 98.5 68 18 139/79 (99) 95 Nasal Cannula 3.00 01/20/19 15:31 96 Nasal Cannula 2.00 01/20/19 13:00 65 01/20/19 12:42 100 Nasal Cannula 3.00 01/20/19 12:00 62 15 140/61 (87) Nasal Cannula 3.00 01/20/19 11:02 64 17 Nasal Cannula 3.00 01/20/19 10:00 97 140/70 (93) Nasal Cannula 3.00 01/20/19 09:00 70 16 90 Nasal Cannula 3.00 01/20/19 08:45 100 Nasal Cannula 3.00 01/20/19 08:09 100 Nasal Cannula 2.00 01/20/19 08:00 64 19 143/75 (97) 99 Nasal Cannula 3.00 01/20/19 07:00 63 01/20/19 07:00 63 15 135/74 (94) 97 Nasal Cannula 3.00 I & O 01/21/19 07:00 Intake Total 1000 ml Output Total 401 ml Balance 599 ml Height & Weight Height: 5'0.00" Weight: 94lbs. 9.0oz. 42.127247dh; 18.6 BMI Method:Stated General Appearance: WD/WN, Mild Distress HEENT: PERRL/EOMI, TMs Normal, Normal ENT Inspection, Pharynx Normal Neck: Full Range of Motion, Normal Inspection, Non Tender, Supple, Carotid Bruit Respiratory: Chest Non Tender, Lungs Clear, Normal Breath Sounds, No Accessory Muscle Use, No Respiratory Distress Cardiovascular: Regular Rate, Rhythm, No Edema, No Gallop, No JVD, No Murmur, Normal Peripheral Pulses Capillary Refill: Less Than 3 Seconds Gastrointestinal: normal bowel sounds, non tender, soft, no organomegaly Extremity: Normal Capillary Refill, Normal Inspection, Normal Range of Motion, Non Tender, No Calf Tenderness, No Pedal Edema Neurologic/Psychiatric: Alert, Oriented x3, No Motor/Sensory Deficits, Normal Mood/Affect Skin: Normal Color, Warm/Dry Lymphatic: No Adenopathy Results Lab Laboratory Tests 01/20/19 04:05 Assessment/Plan Assessment/Plan probable benzo OD - denies suicide attempt Acute on chronic respiratory -ABG C02 was 61 on admission -PT is high risk for repeat hospitalizations and respiratory failure -Pt would benefit from home vent to mask. -Check CT of chest to day secondary to hypoxia, SOB arrhythmia - No CP, nausea, or diaphoresis -cardiology following CHF - both systolic and diastolic -Monitor Tobacco use with probable severe COPD -Out patient testing -Oxygen -SVNs CAD -ASA, Plavix Pneumonia - probably aspiration -Continue Zosyn - influenza swab - neg -Check greer cultures,- neg thus far CAD hx Hx of hip fx KATARZYNA MOJICA DO Jan 21, 2019 07:00
[2019-01-21] MEDS ORDERED: HOLD METFORMIN - RECEIVED CONTRAST 20 ML VIAL IV SCH (07:30)
[2019-01-21] MEDS ORDERED: IOHEXOL 350 MG/ML 100 ML (OMNIPAQUE 350) VIAL IV ONE (07:30)
--- NOTE | 2019-01-21 07:40 | NUR ---
Patient off floor at this time to CT.
[2019-01-21 08:00] VITALS: BP 164/78
--- NOTE | 2019-01-21 08:05 | NUR ---
Patient back from CT, patient laying in bed resting, call light within reach. Voices no complaints at this time.
[2019-01-21 08:09] VITALS: BP 139/76
[2019-01-21] MEDS: meTOprolol TARTRATE 50 MG (LOPRESSOR) TAB PO SCH (08:27)
[2019-01-21] MEDS: FAMOTIDINE 20 MG (PEPCID) TABLET PO SCH (08:27)
[2019-01-21] MEDS: GABAPENTIN 600 MG (NEURONTIN) TAB PO SCH (08:27)
[2019-01-21] MEDS: ASPIRIN E.C. 325 MG (ECOTRIN) TABLET PO SCH (08:27)
[2019-01-21] MEDS: morphine ER 15 MG (MS CONTIN) TAB PO SCH (08:27)
[2019-01-21] MEDS: PARoxetine 20 MG (PAXIL) TAB PO SCH (08:27)
[2019-01-21] MEDS: CLOPIDOGREL 75 MG (PLAVIX) TABLET PO SCH (08:29)
--- NOTE | 2019-01-21 08:42 | Cardiology Progress Note ---
Subjective Date Seen by Provider: Jan 21, 2019 Time Seen by Provider: 08:40 Subjective/Events-last exam Patient sitting up in bed, complaining of some left sided chest/rib pain. Denies any palpitations. Reports dyspnea has somewhat improved. Focused Exam Lactate Level 01/18/19 15:34: Lactic Acid Level 1.01 01/19/19 07:45: Lactic Acid Level 0.65 Objective-Cardiology Exam Last Set of Vital Signs Vital Signs 01/21/19 01/21/19 08:00 08:09 Temp 96.5 Pulse 66 Resp 18 B/P (MAP) 164/78 (106) Pulse Ox 96 O2 Delivery Nasal Cannula O2 Flow Rate 2.50 FiO2 28 Capillary Refill : Less Than 3 Seconds I&O Intake and Output 01/21/19 00:00 Intake Total 1070 ml Output Total 1026 ml Balance 44 ml Intake Oral 950 ml IV Total 120 ml Output Urine Total 1025 ml Stool Total 1 ml # Voids 3 # Bowel Movements 1 General: Alert, Oriented X3, Cooperative, No Acute Distress HEENT: Mucous Memb Moist/[place] Lungs: Clear to Auscultation, Normal Air Movement Heart: Regular Rate Abdomen: Normal Bowel Sounds, Soft, No Tenderness, No Hepatosplenomegaly Extremities: No Edema, No Tenderness/Swelling Skin: No Rashes, No Breakdown Neuro: Normal Speech, Sensation Intact, Cranial Nerves 3-12 NL A/P-Cardiology Admission Diagnosis Lethargy Coronary artery disease Heart tachyarrhythmia Hypertension Tobaccoism COPD Assessment/Plan Lethargy, somnolence, questionable benzo overdose, better at this time. Continue to monitor Chest pain, nonspecific etiology, chronic stable angina for which she used sublingual nitroglycerin as needed. Continue to monitor Frequent atrial premature contractions, maintained on metoprolol 50 mg twice daily. Continue to monitor Extensive history of coronary artery disease with multiple stents, history of stents to the distal circumflex artery using 3.013 mm and 2.513 mm done in [place] in 2000, had a cardiac catheterization done by Dr. Brooke in November 2017 which showed mild ostial left main stenosis, LAD has a stent which was patent with mild diffuse disease, circumflex has patent first obtuse marginal branch stent and after the first obtuse marginal branch there is a stent in the proper circumflex artery that has severe stenosis and distal to the first stent there is another stent that is occluded, attempt was made by Dr. Brooke to cross that area that has failed, treated medically, the right coronary artery has moderate disease. Patient was noted to have mild apical hypokinesis with ejection fraction 45-50 percent Shortness of breath, history of COPD, currently stable. Continue to monitor Peripheral arterial disease, claudication, peripheral angiogram was done in September 2017 which showed [id number] disease in the distal abdominal aorta, mild to moderate disease diffusely down to the trifurcation with no obstructive disease, continue to monitor Hypertension, history of borderline low blood pressure. Monitor blood pressure Hyperlipidemia, maintained on statin Pulmonary hypertension Valvular heart disease with moderate mitral regurgitation, moderate to severe tricuspid regurgitation Tobaccoism, still an active smoker. Right hip surgery postoperative - orthopedics; inpatient rehabilitation is recommended. Clinical Quality Measures DVT/VTE Risk/Contraindication: Risk Factor Score Per Nursin RFS Level Per Nursing on Admit: 3=High PRISCILA COWAN Jan 21, 2019 08:42
--- NOTE | 2019-01-21 08:53 | Occupational Ther Daily Note ---
OT Current Status-Daily Note Subjective Pt. reports pain in back of 06/13. Nursing gives medication. Appearance Pt. just finishing with PT. Declines showering as she showered yesterday, but agrees to get dressed. Mental Status/Objective Patient Orientation: Person, Place, Time, Situation Therapy Code Descriptions/Definitions Functional Deal Measure: 0=Not Assessed/NA 4=Minimal Assistance 1=Total Assistance 5=Supervision or Setup 2=Maximal Assistance 6=Modified Deal 3=Moderate Assistance 7=Complete Deal Attachments: IV, Oxygen ADL-Treatment Upper Body (FIM): 6 (Pt. would hold onto bed rail or walker when standing.) Lower Body Dressing (FIM): 6 Toileting (FIM): 6 Transfers (B, C, W/C) (FIM): 6 Toilet/Commode Transfer (FIM): 6 Other Treatment Pt. demonstrated good safety with ADLs. Pt. on 2 L 02. Pt. will be discharging soon. No further OT warranted at this time. Education OT Patient Education: Modified ADL techniques, Progress toward Goal/Update tx plan, Purpose of tx/functional activities, Reviewed precautions, Rehab process, Transfer techniques Teaching Recipient: Patient Teaching Methods: Demonstration, Discussion Response to Teaching: Verbalize Understanding, Return Demonstration OT Short Term Goals Short Term Goals 1=Demonstrate adherence to instructed precautions during ADL tasks. 2=Patient will verbalize/demonstrate understanding of assistive devices/ modifications for ADL. 3=Patient will improve strength/tolerance for activity to enable patient to perform ADL's. OT Retirement Goals Retirement Goals Time Frame: Feb 02, 2019 Eating (FIM): 6 Grooming(FIM): 6 Bathing(FIM): 5 (sponge bath is PLOF) Upper Body Dressing(FIM): 5 Lower Body Dressing(FIM): 5 Toileting(FIM): 6 Toilet/Commode Transfer(FIM): 6 Additional Goals: 1-Demonstrate ADL Tasks, 2-Verbalize Understanding, 3- ImproveStrength/[place] 1=Demonstrate adherence to instructed precautions during ADL tasks. 2=Patient will verbalize/demonstrate understanding of assistive devices/ modifications for ADL. 3=Patient will improve strength/tolerance for activity to enable patient to perform ADL's. OT Education/Plan Problem List/Assessment Assessment: Decreased Activ Tolerance Discharge Recommendations Plan/Recommendations: Discharge/Goals Met Treatment Plan/Plan of Care Treatment,Training & Education: Yes Treatment Duration: Feb 02, 2019 Frequency: 1 time per week Estimated Hrs Per Day: .5 hour per day Agreement: Yes Rehab Potential: Good Time/GCodes Start Time: 08:25 Stop Time: 08:38 Total Time Billed (hr/min): 13 Billed Treatment Time 1, ADL KSENIA MILNER OT Jan 21, 2019 08:53
--- NOTE | 2019-01-21 09:06 | Cardiology Progress Note ---
Subjective Date Seen by Provider: Jan 21, 2019 Time Seen by Provider: 09:04 Subjective/Events-last exam patient is sitting in bed, feeling better, denied any chest pain Review of Systems General: No Chills, No Night Sweats, No Fatigue, No Malaise, No Appetite, No Other HEENT: No Head Aches, No Visual Changes, No Eye Pain, No Ear Pain, No Dysphasia , No Sinus Congestion, No Post Nasal Drip, No Sore Throat, No Other Pulmonary: No Dyspnea, No Cough, No Pleuritic Chest Pain, No Other Cardiovascular: No: Chest Pain, Palpitations, Orthopnea, Paroxysmal Noc. Dyspnea, Edema, Lt Headedness, Other Focused Exam Lactate Level 01/18/19 15:34: Lactic Acid Level 1.01 01/19/19 07:45: Lactic Acid Level 0.65 Objective-Cardiology Exam Last Set of Vital Signs Vital Signs 01/21/19 01/21/19 08:00 08:09 Temp 96.5 Pulse 66 Resp 18 B/P (MAP) 164/78 (106) Pulse Ox 96 O2 Delivery Nasal Cannula O2 Flow Rate 2.50 FiO2 28 Capillary Refill : Less Than 3 Seconds I&O Intake and Output 01/21/19 00:00 Intake Total 1070 ml Output Total 1026 ml Balance 44 ml Intake Oral 950 ml IV Total 120 ml Output Urine Total 1025 ml Stool Total 1 ml # Voids 3 # Bowel Movements 1 General: Alert, Oriented X3, Cooperative, No Acute Distress HEENT: Mucous Memb Moist/[place] Neck: Supple, No JVD, No Thyromegaly Lungs: Clear to Auscultation, Normal Air Movement Heart: Regular Rate Abdomen: Normal Bowel Sounds, Soft, No Tenderness, No Hepatosplenomegaly Extremities: No Edema, No Tenderness/Swelling Skin: No Rashes, No Breakdown Neuro: Normal Speech, Sensation Intact, Cranial Nerves 3-12 NL Psych/Mental Status: Mental Status NL, Mood NL Results Lab Laboratory Tests Test 01/20/19 10:08 01/20/19 14:22 Range/Units Troponin I < 0.028 < 0.028 <0.028 NG/ML A/P-Cardiology Admission Diagnosis Lethargy Coronary artery disease Heart tachyarrhythmia Hypertension Tobaccoism COPD Assessment/Plan Lethargy, somnolence, questionable benzo overdose, better at this time. Continue to monitor Chest pain, nonspecific etiology, chronic stable angina for which she used sublingual nitroglycerin as needed. Continue to monitor Frequent atrial premature contractions, maintained on metoprolol 50 mg twice daily. Continue to monitor Extensive history of coronary artery disease with multiple stents, history of stents to the distal circumflex artery using 3.013 mm and 2.513 mm done in [place] in 2000, had a cardiac catheterization done by Dr. Brooke in November 2017 which showed mild ostial left main stenosis, LAD has a stent which was patent with mild diffuse disease, circumflex has patent first obtuse marginal branch stent and after the first obtuse marginal branch there is a stent in the proper circumflex artery that has severe stenosis and distal to the first stent there is another stent that is occluded, attempt was made by Dr. Brooke to cross that area that has failed, treated medically, the right coronary artery has moderate disease. Patient was noted to have mild apical hypokinesis with ejection fraction 45-50 percent Shortness of breath, history of COPD, currently stable. Continue to monitor Peripheral arterial disease, claudication, peripheral angiogram was done in September 2017 which showed [id number] disease in the distal abdominal aorta, mild to moderate disease diffusely down to the trifurcation with no obstructive disease, continue to monitor Hypertension, history of borderline low blood pressure. Monitor blood pressure Hyperlipidemia, maintained on statin Pulmonary hypertension Valvular heart disease with moderate mitral regurgitation, moderate to severe tricuspid regurgitation Tobaccoism, still an active smoker. Right hip surgery postoperative - orthopedics; inpatient rehabilitation is recommended. Clinical Quality Measures DVT/VTE Risk/Contraindication: Risk Factor Score Per Nursin RFS Level Per Nursing on Admit: 3=High SAMANTHA OCONNOR MD Jan 21, 2019 09:06
--- NOTE | 2019-01-21 09:23 | Discharge Summary ---
Diagnosis/Chief Complaint Date of Admission Jan 18, 2019 at 19:05 Date of Discharge 01/21/19 Admission Diagnosis Admission Diagnosis See Below Discharge Diagnosis See problem list Problems/Diagnosis: (1) Acute and chronic respiratory failure with hypoxia Assessment & Plan: - Dr Walker following patient, started treatment of possible Asp PNA with Zosyn D1, Baseline oxygen requirement of 3L continuous at home 01/20: Patient on baseline oxygen, D/c Hsieh and order PT 01/21: Patient was sent home off antibiotics Status: Acute (2) Altered mental status Assessment & Plan: 01/19: Patient is back to her baseline this AM, likely 2/2 to over medications with benzo + opoid medication Qualifiers: Qualified Codes: R40.0 - Somnolence Status: Resolved Resolution Date/Time: 01/19/19 @ 16:09 (3) Benzodiazepine (tranquilizer) overdose Assessment & Plan: 01/19: Patient on multiple high risk medications, would recommend titrating patient off Benzo medications as outpatient 01/21: Sent home on BID dosing of xanax and discussed with patient that I would recommend further titrate of Benzo with goal of discontinuation of medication and using a better medication for sleep and anxiety Qualifiers: Qualified Codes: T42.4X4A - Poisoning by benzodiazepines, undetermined, initial encounter Status: Acute (4) CAD (coronary artery disease) Assessment & Plan: 01/19: Continue ASA and Plavix, will discuss with cardiology if patient needs to be on full dose ASA as oppose to baby aspirin 01/20: Patient noted to have arrhythmia, Cardiology consulted Qualifiers: Qualified Codes: I25.10 - Atherosclerotic heart disease of [place] coronary artery without angina pectoris Status: Chronic (5) HTN (hypertension) Assessment & Plan: 01/19: Continue home meds Qualifiers: Qualified Codes: I10 - Essential (primary) hypertension Status: Chronic (6) Chronic pain Status: Chronic (7) Tobacco abuse Assessment & Plan: - Recommend cessation Status: Chronic (8) DVT prophylaxis Assessment & Plan: - Lovenox - Plan for d/c home tomorrow Status: Acute Chief Complaint/HPI Chief Complaint/HPI 69 yo F admitted for altered mental status. Patient AOx3 this AM. States that she does not remember what happened yesterday. States that she has been dealing with her chronic pain but otherwise has been feeling fine prior to admission. Denies any fever or chills. States that her sisters set up her medications for her and she does not remember taking any extra doses or other medications. Last admission was in July for hip fracture. She is on baseline oxygen at 3L continuous but she does take it off at home sometimes. Discharge Summary-Simple/Stand Consultations Dr Walker, Pulmonology, Critical Care Discharge Physical Examination Allergies: Coded Allergies: oxymorphone (Verified Allergy, Unknown, 08/03/18) varenicline (Verified Allergy, Unknown, 08/03/18) Vitals & I&Os Vital Sign - Last 12Hours Date Time Temp Pulse Resp B/P (MAP) Pulse Ox O2 Delivery O2 Flow Rate FiO2 01/21/19 08:09 66 96 28 01/21/19 08:00 96.5 18 164/78 (106) Nasal Cannula 2.50 Intake and Output 01/21/19 00:00 Intake Total 560 ml Output Total 401 ml Balance 159 ml General Appearance: Alert, Oriented X3, Cooperative, No Acute Distress HEENT: Mucous Memb Moist/[place] Respiratory: Clear to Auscultation, Normal Air Movement Cardiovascular: Regular Rate, No Murmurs Abdominal: Normal Bowel Sounds, Soft, No Tenderness, No Masses Extremities: No Edema, No Tenderness/Swelling Skin: No Rashes, No Breakdown Neuro: Normal Speech, Strength at 5/5 X4 Ext, Sensation Intact, Cranial Nerves 3-12 NL Hospital Course Was the Problem List Reviewed?: Yes See final discharge diagnosis. Discussion & Recommendations 69 yo F that presented with altered mental status following likely unintentional benzo overdose. Patient was monitored in ICU for 1 day and then transferred to floor as patient was at her baseline. She states that her sister takes care of medications but that she might have taken her meds wrong. Discussed with patient that she would benefit from titration of benzo and would encourage patient to discuss with PCP the further titration of benzo medication as she is on multiple high risk medications. Discharge Condition at discharge stable Instructions to patient/family Please see electronic discharge instructions given to patient. Discharge Medications Reviewed and agree with Discharge Medication list on patient's Discharge Instruction sheet Clinical Quality Measures DVT/VTE Risk/Contraindication: Risk Factor Score Per Nursin RFS Level Per Nursing on Admit: 3=High Copy Copies To 1: CEASAR SNYDER MD, HOLLY R MD Jan 21, 2019 09:23
[2019-01-21] MEDS ORDERED: METO50TA15 PO (09:26)
[2019-01-21] MEDS ORDERED: ALPR1TAB7 PO (09:26)
--- NOTE | 2019-01-21 09:29 | Discharge Instructions ---
Discharge [facility] Discharge Medications New, Converted or Re-Newed RX: Transmitted to Pharmacy New Medications: Metoprolol Tartrate (Metoprolol Tartrate) 50 Mg Tablet 50 MG PO BID, #60 TAB Changed Medications: Alprazolam (Alprazolam) 1 Mg Tablet 0.5 MG PO BID PRN for ANXIETY, #60 TAB (Changed from: 1 MG; TID) Continued Medications: Acetaminophen (Tylenol Extra Strength) 500 Mg Tablet 1000 MG PO Q4H PRN for PAIN-MILD, TAB Albuterol Sulfate (Proair Hfa) 1 Puff Puff 2 PUFF INH Q6H PRN for SHORTNESS OF BREATH, INHALER Aspirin (Aspirin EC) 325 Mg Tablet.dr 325 MG PO DAILY, TAB Atorvastatin Calcium (Atorvastatin Calcium) 40 Mg Tablet 40 MG PO HS, TAB Clopidogrel Bisulfate (Clopidogrel) 75 Mg Tablet 75 MG PO DAILY, TAB Gabapentin (Gabapentin) 600 Mg Tablet 600 MG PO TID, TAB Levetiracetam (Levetiracetam) 500 Mg Tablet 500 MG PO BID, TAB LAST FILLED #60 11-21-18 Morphine Sulfate (Morphine Sulfate ER) 15 Mg Tablet.er 15 MG PO BID, TAB Nitroglycerin (Nitroglycerin) 0.4 Mg Tab.subl 0.4 MG SL UD PRN for CHEST PAIN, TAB Ondansetron HCl (Ondansetron HCl) 4 Mg Tablet 4 MG PO Q6H PRN for NAUSEA/VOMITING-1ST LINE, TAB Paroxetine HCl (Paroxetine HCl) 20 Mg Tablet 20 MG PO DAILY, TAB Patient Instructions Goal/Follow Up Appt: You have a follow up appt with Dr Snyder on Tuesday 01/23 @ 420 PM Patient Instructions: - Be sure to review your medication list as some of your meds have changed - Decreased Xanax dosing to two time per day Activity & Diet Discharge Diet: Cardiac Diet Activity as Tolerated: Yes Copy Copies To 1: CEASAR SNYDER MD, HOLLY R MD Jan 21, 2019 09:29
--- NOTE | 2019-01-21 09:43 | NUR ---
DISCHARGE PLANNING: Spoke with Dr. Allen and she reports patient will discharge today to home where she lives with her sister. She has everything that she needs already in place. Attempted to call the sister to remind her that she will need her O2 go tank for transport home. No needs at this time.
--- NOTE | 2019-01-21 09:45 | Physical Therapy Daily Note ---
PT Daily Note-Current Subjective pt agreeable to PT session this am. States she has always had RLE shorter than LLE, normally wears a lift shoe on RLE and uses a cane. States she does not like the walker at all, but is willing to use it. Pain Numeric Pain Scale: 8 Location Body Site: Back Comment: states this is her normal pain, rcv'd pain med at end of session Appearance Upon arrival, pt supine in bed and awake At end of session, pt sitting EOB with nsg and OT present Mental Status Patient Orientation: Person, Place, Time, Eyes Open, Situation Attachments: Saline Lock, Oxygen (2L) Transfers Therapy Code Descriptions/Definitions Functional [place] Measure: 0=Not Assessed/NA 4=Minimal Assistance 1=Total Assistance 5=Supervision or Setup 2=Maximal Assistance 6=Modified [place] 3=Moderate Assistance 7=Complete [place] Therapy Quality Codes: 6 Independent with activity with or without an assistive device 5 Patient requires set up or clean up by helper. Patient completes activity by themselves 4 Supervision or touching assist (CGA). [place] provide cues , steadying assist 3 The helper provides less than half the effort to complete the activity 2 The helper provides more than half the effort to complete the activity 1 Dependent. The helper does all the effort to complete an activity 7 Patient refused to complete or attempt activity 9 The patient did not perform the activity before the current illness or injury 88 Not attempted due to Medical conditions or safety concerns Transfers (B, C, W/C) (FIM): 7 Scootin Rollin Supine to/from Sit: 7 Sit to/from Stand: 7 Pt demo ability to perform all transitions safely and without AD without effort Gait Training Gait (FIM): 6 Distance (FIM): 3=150 ft Distance: >400' Gait Level of Assist: 6 Gait Persons Needed: 1 Gait Assistive Device: FWW occasionally up on toes RLE due to leg length discrepancy with limp, use of FWW this visit due to pt stating usually uses cane but does not want to take a chance and walk without AD Treatments Bed mobility, Gait and transfers to improve activity tolerance, functional mobility, balance, strength Assessment Current Status: Good Progress PT Prison Goals Fermentologist Goals PT Fermentologist Goals Time Frame: Jan 30, 2019 Transfers (B,C,W/C) (FIM): 6 Gait (FIM): 1 Gait distance (FIM): 1=up to 49 ft Distance: 15 Gait Level of Assist: 5 Gait Assistive Device: FWW, Cane Single Point PT Plan Treatment/Plan Treatment Plan: Continue Plan of Care Treatment Plan: Bed Mobility, Education, Functional Activity [place], Functional Strength, Gait, Safety, Therapeutic Exercise, Transfers Treatment Duration: Jan 30, 2019 Frequency: 6 times per week Estimated Hrs Per Day: .25 hour per day Patient and/or Family Agrees t: Yes Safety Risks/Education Patient Education: Gait Training, Transfer Techniques Teaching Recipient: Patient Teaching Methods: Discussion Response to Teaching: Verbalize Understanding Time/GCodes Time In: 812 Time Out: 825 Total Billed Treatment Time: 13 Total Billed Treatment 1 visit, GT x1 unit [employer]I [employer] TOOLING SPECIALIST Jan 21, 2019 09:45
--- NOTE | 2019-01-21 09:55 | Diagnostic Imaging Report ---
PROCEDURE: CT chest with contrast only. TECHNIQUE: Multiple contiguous axial images were obtained through the chest after administration of intravenous contrast. Auto Exposure Controls were utilized during the CT exam to meet ALARA standards for radiation dose reduction. INDICATION: Comparison is made with chest radiograph from one day earlier. No axillary lymphadenopathy is identified. No definite hilar or mediastinal lymphadenopathy is identified. No pericardial or pleural fluid is detected. Parenchymal evaluation demonstrate central airways to be patent. There is some patchy infiltrate in the superior segment of the left lower lobe as well as in the lower aspect of the left upper lobe suggestive of pneumonia. Right lung is clear. No mass is identified. Mild centrilobular emphysematous changes are noted. The upper abdomen is unremarkable. IMPRESSION: 1. Centrilobular emphysematous changes. There is some minimal patchy infiltrate in the left upper and left lower lobe suggestive of pneumonia. No other significant abnormalities detected. Dictated by: Dictated on workstation # [id number]
[2019-01-21 12:00] VITALS: BP 172/79
[2019-01-21 12:35] VITALS: BP 172/79
--- NOTE | 2019-01-21 12:35 | NUR ---
MELANIE SIGALA demonstrates understanding of discharge instructions and accurately returns instructions upon questioning. Copy of Post-Discharge Instructions given to patient. MELANIE SIGALA is able to manage continuing needs after discharge. Patients belongings returned to patient. Patient discharged from [facility]- on 01-22-2019 at 1235 . MELANIE SIGALA left floor via wheelchair, accompanied by staff, and family.
--- NOTE | 2019-01-22 09:21 | Physician Query Clarification ---
PQ-CHF Specificity The medical record reflects the following clinical scenario: History/Risk Factors: Benzo OD, aspiration pneumonia, acute on chronic respiratory failure, systolic/ diastolic CHF Clinical Findings: SOB, wheezing, BNP 641.5 Treatment: Lasix 40 harvey IVP Question: Can you further specify the acuity &/or type of CHF per the clinical indicators above? Please document a response below PHYSICIAN RESPONSE Acuity: Chronic Type: Systolic Other, clinical findings I did not mention heart failure in my note In responding to this query, please exercise your independent professional judgment. The purpose of this communication is to more accurately reflect the complexity of your patients condition. The fact that a question is asked does not imply that any particular answer is desired or expected. Thank you for your timely response to this clarification. Requestors name: Melina THIS PHYSICIAN QUERY FORM IS A PERMANENT PART OF THE MEDICAL RECORD MELINA SHARMA Jan 22, 2019 09:21 SAMANTHA OCONNOR MD Jan 22, 2019 12:17
== END 2019-01-21 12:35 | disposition home or self-care (01) | DRG 917 ==
LOC: EDUNIT# 16:30 → ER 16:31 → ICU 19:05 → OBSVTOIN 19:05 → 4TH 01-20 14:56
PROVIDERS: ADMIT Internal Medicine; ATTEND Internal Medicine
DX: T42.4X1A Poisoning by benzodiazepines, accidental (unintentional), initial encounter (principal); T40.2X1A Poisoning by other opioids, accidental (unintentional), initial encounter; J69.0 Pneumonitis due to inhalation of food and vomit; J96.21 Acute and chronic respiratory failure with hypoxia; I11.0 Hypertensive heart disease with heart failure; I50.22 Chronic systolic (congestive) heart failure; K50.90 Crohn's disease, unspecified, without complications; R64 Cachexia; R40.0 Somnolence; R41.0 Disorientation, unspecified; R32 Unspecified urinary incontinence; R35.0 Frequency of micturition; J44.9 Chronic obstructive pulmonary disease, unspecified; I49.1 Atrial premature depolarization; F17.210 Nicotine dependence, cigarettes, uncomplicated; F17.290 Nicotine dependence, other tobacco product, uncomplicated; I27.20 Pulmonary hypertension, unspecified; I25.10 Atherosclerotic heart disease of native coronary artery without angina pectoris; I25.2 Old myocardial infarction; G62.9 Polyneuropathy, unspecified; K21.9 Gastro-esophageal reflux disease without esophagitis; G25.81 Restless legs syndrome; M54.9 Dorsalgia, unspecified; M54.2 Cervicalgia; F41.0 Panic disorder [episodic paroxysmal anxiety]; F31.9 Bipolar disorder, unspecified; F43.10 Post-traumatic stress disorder, unspecified; F51.4 Sleep terrors [night terrors]; I08.1 Rheumatic disorders of both mitral and tricuspid valves; Z95.5 Presence of coronary angioplasty implant and graft
CPT/HCPCS: 36415; 51702; 71045; 71260; 80048; 80053; 80306; 80320; 80329; 81000; 82140; 82550; 82805; 83605; 83735; 83880; 84100; 84484; 85025; 85610; 85730; 87040; 87081; 87088; 87804; 93005; 93306; 94640; 96360; G0378

== ENCOUNTER 2019-03-24 13:33 | Inpatient (IN) | payer MEDICARE, OTHER | END 2019-03-26 13:25 | disposition home or self-care (01) | LOC: 4TH 03-25 08:27 → ER 13:33 → ICU 16:15 → 4TH 03-25 15:30 ==

== ENCOUNTER 2019-04-14 15:55 | Emergency (ER) | payer MEDICARE ==
[~2019-04-14] VITALS: Ht 152.4 cm; Wt 40.8 kg
[~2019-04-14 15:55] MED LIST changes: +ALPR0.5T7 PO; +FLUT1BLS3 INH; +IPRA3AMP31 INH; +LEVE500T6 PO; +LISI-556 PO; +LORA10TA7 PO; +LOSA25TA41 PO; +MONT10TA24 PO; +ONDA4TAB10 PO; +ONDA4TAB11 PO; +PRED10TA22 PO; +RT-ALBUINH INH
[2019-04-14] MEDS ORDERED: RT-ALBUTEROL SULF 2.5 MG/3 ML PRE-MIX VIAL INH STA (16:08)
[2019-04-14] MEDS ORDERED: NS IV 1000 ML 1,000 ML IV SCH (16:08)
[2019-04-14] MEDS ORDERED: methylPREDNISolone 125 MG (Solu-MEDROL) VIAL IV STA (16:08)
[2019-04-14] MEDS ORDERED: RT-ALBUTEROL/IPRATROPIUM 3 ML (DUONEB) VIAL INH ONE (16:15)
--- NOTE | 2019-04-14 16:20 | NUR ---
pingpong sized ecchymotic area with petechae noted over rt eye. states that she has been falling freq at home
[2019-04-14 16:21] LABS: BASOPHILS % (AUTO) 0 % (0-10); EOSINOPHILS # (AUTO) 0.1 10^3/uL (0.0-0.3); EOSINOPHILS % (AUTO) 1 % (0-10); HEMATOCRIT 38 % (35-52); HEMOGLOBIN 12.1 G/DL (11.5-16.0); LYMPHOCYTES # (AUTO) 1.1 X 10^3 (1.0-4.0); LYMPHOCYTES % (AUTO) 16 % (12-44); MEAN CORPUSCULAR HEMOGLOBIN 33 PG (25-34); MEAN CORPUSCULAR HGB CONC 32 G/DL (32-36); MEAN CORPUSCULAR VOLUME 102 FL (80-99); MEAN PLATELET VOLUME 9.4 FL (7.4-10.4); MONOCYTES # (AUTO) 0.5 X 10^3 (0.0-1.0); MONOCYTES % (AUTO) 7 % (0-12); NEUTROPHILS # (AUTO) 5.3 X 10^3 (1.8-7.8); NEUTROPHILS % (AUTO) 76 % (42-75); PLATELET COUNT 285 10^3/uL (130-400); RED CELL DISTRIBUTION WIDTH 13.8 % (10.0-14.5)
--- NOTE | 2019-04-14 16:24 | ED Respiratory ---
General Chief Complaint: Respiratory Problems Stated Complaint: SOB Nursing Triage Note: PT TO RM 6 BY WHEELCHAIR WITH COMPLAINT OF SOA. STATES STARTED TWO DAYS. PT STATES IT HURTS TO BREATH. WEARS 6LNC AT HOME. Source: patient Exam Limitations: no limitations (EVANGELINA CARBALLO MD) History of Present Illness Date Seen by Provider: Apr 14, 2019 Time Seen by Provider: 16:05 Initial Comments Here with report of onset of shortness of air over the last 2 days. States that she has abdominal pain and back pain but describes it at the lower portion of the chest and worse with breathing. States that she has been very weak and has fallen multiple times. No motor or 6 L via nasal cannula at home. Does have history of COPD. Does continue to smoke and lives with smokers. Overall very weak. Denies fevers. Denies injuries with the fall but does have bruise to the right brow area. Patient is a poor historian. Timing/Duration: getting worse, other (2 days) Severity: moderate, severe Prior Episodes/Possible Cause: frequent episodes Modifying Factors: Worse With Activity; Improves With Oxygen, Improves With Rest Associated Symptoms: cough; No earache, No facial pain, No fever/chills; nasal congestion, shortness of breath; No sinus infection, No sore throat; wheezing (EVANGELINA CARBALLO MD) Allergies and Home Medications Allergies Coded Allergies: oxymorphone (Verified Allergy, Unknown, Pt takes Morphine ER at home, 03/25/19) varenicline (Verified Allergy, Unknown, 08/03/18) Uncoded Allergies: PEANUTS (Allergy, Unknown, 03/24/19) Home Medications Acetaminophen 500 Mg Tablet, 1,000 MG PO Q4H PRN for PAIN-MILD, (Reported) Albuterol Sulfate 18 Gm Hfa.aer.ad, 2 PUFF INH Q4H PRN for SHORTNESS OF BREATH, (Reported) Alprazolam 0.5 Mg Tablet, 0.5 MG PO BID PRN for ANXIETY, (Reported) Aspirin 325 Mg Tablet.dr, 325 MG PO DAILY, (Reported) Atorvastatin Calcium 40 Mg Tablet, 40 MG PO HS, (Reported) Clopidogrel Bisulfate 75 Mg Tablet, 75 MG PO DAILY, (Reported) Fluticasone/Umeclidin/Vilanter 1 Each Blst.w.dev, 1 PUFF INH DAILY, (Reported) Gabapentin 600 Mg Tablet, 600 MG PO TID, (Reported) Ipratropium/Albuterol Sulfate 3 Ml Ampul.neb, 3 ML INH RTQ4HR Prescribed by: SINDY GALE on 03/26/19944 Loratadine 10 Mg Tablet, 10 MG PO DAILY Prescribed by: SINDY GALE on 03/26/19944 Losartan Potassium 25 Mg Tablet, 25 MG PO DAILY Prescribed by: SAMANTHA OCONNOR on 03/26/19 1239 Metoprolol Tartrate 50 Mg Tablet, 50 MG PO BID, (Reported) Montelukast Sodium 10 Mg Tablet, 10 MG PO HS Prescribed by: SINDY GALE on 03/26/19944 Morphine Sulfate 15 Mg Tablet.er, 15 MG PO BID, (Reported) Nitroglycerin 0.4 Mg Tab.subl, 0.4 MG SL UD PRN for CHEST PAIN, (Reported) Ondansetron 4 Mg Tab.rapdis, 4 MG PO Q8H PRN for NAUSEA/VOMITING-1ST LINE, (Reported) Paroxetine HCl 20 Mg Tablet, 20 MG PO DAILY, (Reported) Prednisone 10 Mg Tab.ds.pk, 10 MG PO DAILY Take 6 tabs(60mg)daily,decrease by 1 tab(10MG)daily. Prescribed by: SINDY GALE on 03/26/19944 Patient Home Medication List Home Medication List Reviewed: Yes (EVANGELINA CARBALLO MD) Review of Systems Review of Systems Constitutional: see HPI; No chills, No fever; malaise, weakness EENTM: see HPI; No eye pain, No throat pain Respiratory: cough, dyspnea on exertion, short of breath, wheezing Cardiovascular: chest pain; No edema, No palpitations Gastrointestinal: abdominal pain (upper); No diarrhea; nausea, vomiting Genitourinary: no symptoms reported Musculoskeletal: back pain, joint swelling, neck pain Skin: change in color, lesions Psychiatric/Neurological: Tingling, Weakness Hematologic/Lymphatic: No Symptoms Reported (EVANGELINA CARBALLO MD) All Other Systems Reviewed Negative Unless Noted: Yes (EVANGELINA CARBALLO MD) Past Appwwdl-Nboefb-Airxhu Hx Past Med/Social Hx: Reviewed Nursing Past Med/Soc Hx (EVANGELINA CARBALLO MD) Patient Social History Alcohol Use: Denies Use Recreational Drug Use: No Smoking Status: Current Everyday Smoker Type Used: Cigars, Cigarettes Recent Foreign Travel: No Contact w/Someone Who Travel: No Recent Infectious Disease Expo: No Recent Hopitalizations: No (EVANGELINA CARBALLO MD) Immunizations Up To Date Tetanus Booster (TDap): Unknown Date of Pneumonia Vaccine: Dec 05, 2018 Date of Influenza Vaccine: Jul 05, 2018 (EVANGELINA CARBALLO MD) Seasonal Allergies Seasonal Allergies: No (EVANGELINA CARBALLO MD) Past Medical History Surgeries: Yes (CARDIAC CATH--STENTS X 2 , r hip) Cardiac, Coronary Stent, Hysterectomy, Orthopedic Respiratory: Yes (SMOKED 1/2 PPD SINCE AGE 9) Asthma, COPD Currently Using CPAP: No Currently Using BIPAP: No Cardiac: Yes (STENTS X 2, PER PT) Coronary Artery Disease, Heart Attack, Hypertension, Peripheral Vascular Neurological: Yes (sleepwalking; NUEROPATHY IN LEGS AND HANDS, PER PT) Neuropathy Reproductive Disorders: No Female Reproductive Disorders: Denies Sexually Transmitted Disease: No HIV/AIDS: No Genitourinary: No Gastrointestinal: Yes Colitis, Gastroesophageal Reflux, Crohns Disease Musculoskeletal: Yes (RESTLESS LEGS,CHRONIC NECK AND BACK PAIN; FREQUENT FALLS) Arthritis, Chronic Back Pain Endocrine: No HEENT: Yes (STATED SHE HAS TROUBLE SEEING THE MENU) Loss of Vision: Right Hearing Impairment: Denies Cancer: Yes Skin, Ovarian Did You Recieve Any Treatments: Yes What Type of Treatment Did You: Surgical Intervention Psychosocial: Yes (PANIC ATTACKS, night terrors) Sleep Difficulties, Anxiety, PTSD, Bipolar, Depression Integumentary: Yes ("SKIN CANCER SPOTS") Blood Disorders: No (aplastic anemia) (EVANGELINA CARABLLO MD) Family Medical History Reviewed Nursing Family Hx (EVANGELINA CARBALLO MD) Psychosocial problem G8 SISTER No Pertinent Family Hx (EVANGELINA CARBALLO MD) Physical Exam Vital Signs - First Documented (ANNA MARIE PULLIAM) Capillary Refill : Less Than 3 Seconds (EVANGELINA CARBALLO MD) Height: 5'0" Weight: 90lbs. 0.0oz. [id number]; 17.1 BMI Method:Stated General Appearance: mild distress, thin HEENT: PERRL/EOMI, pharynx normal Neck: full range of motion, supple Respiratory: decreased breath sounds, wheezing Cardiovascular: regular rate, rhythm, no murmur Gastrointestinal: non tender, soft Extremities: non-tender, normal inspection Neurologic/Psychiatric: alert, normal mood/affect Skin: normal color, warm/dry (EVANGELINA CARBALLO MD) Focused Exam Lactate Level 04/14/19 16:00: Lactic Acid Level 0.79 (ANNA MARIE PULLIAM) Lactic Acid Level Laboratory Tests Test 04/14/19 16:00 Lactic Acid Level 0.79 MMOL/L (0.50-2.00) (ANNA MARIE PULLIAM) Procedures/Interventions Date of ETT Placement: Nov 18, 2018 Time of ETT Placement: 0755 (EVANGELINA CARBALLO MD) Progress/Results/Core Measures Suspected Sepsis Recent Fever Within 48 Hours: No Infection Criteria Present: None New/Unexplained Altered Menta: No Sepsis Screen: No Definite Risk SIRS Temperature:97.2 Pulse: 80 Respiratory Rate: 26 Laboratory Tests 04/14/19 16:00: White Blood Count 7.0 Blood Pressure 136 /58 Mean: 84 04/14/19 16:00: Lactic Acid Level 0.79 Laboratory Tests 04/14/19 16:00: Creatinine 0.66, INR Comment 0.9, Platelet Count 285, Total Bilirubin 0.5 (EVANGELINA CARBALLO MD) Results/Orders Lab Results Laboratory Tests Test 04/14/19 16:00 04/14/19 17:17 04/14/19 17:21 Range/Units White Blood Count 7.0 4.3-11.0 10^3/uL Red Blood Count 3.69 L 4.35-5.85 10^6/uL Hemoglobin 12.1 11.5-16.0 G/DL Hematocrit 38 35-52 % Mean Corpuscular Volume 102 H 80-99 FL Mean Corpuscular Hemoglobin 33 25-34 PG Mean Corpuscular Hemoglobin Concent 32 32-36 G/DL Red Cell Distribution Width 13.8 10.0-14.5 % Platelet Count 285 130-400 10^3/uL Mean Platelet Volume 9.4 7.4-10.4 FL Neutrophils (%) (Auto) 76 H 42-75 % Lymphocytes (%) (Auto) 16 12-44 % Monocytes (%) (Auto) 7 0-12 % Eosinophils (%) (Auto) 1 0-10 % Basophils (%) (Auto) 0 0-10 % Neutrophils # (Auto) 5.3 1.8-7.8 X 10^3 Lymphocytes # (Auto) 1.1 1.0-4.0 X 10^3 Monocytes # (Auto) 0.5 0.0-1.0 X 10^3 Eosinophils # (Auto) 0.1 0.0-0.3 10^3/uL Basophils # (Auto) 0.0 0.0-0.1 10^3/uL Prothrombin Time 12.5 12.2-14.7 SEC INR Comment 0.9 0.8-1.4 Activated Partial Thromboplast Time 30 24-35 SEC D-Dimer 1.44 H 0.00-0.49 UG/ML Sodium Level 137 135-145 MMOL/L Potassium Level 4.9 3.6-5.0 MMOL/L Chloride Level 93 L 98-107 MMOL/L Carbon Dioxide Level 37 H 21-32 MMOL/L Anion Gap 7 5-14 MMOL/L Blood Urea Nitrogen 9 7-18 MG/DL Creatinine 0.66 0.60-1.30 MG/DL Estimat Glomerular Filtration Rate > 60 BUN/Creatinine Ratio 14 Glucose Level 113 H 70-105 MG/DL Lactic Acid Level 0.79 0.50-2.00 MMOL/L Calcium Level 9.5 8.5-10.1 MG/DL Corrected Calcium 9.6 8.5-10.1 MG/DL Total Bilirubin 0.5 0.1-1.0 MG/DL Aspartate Amino Transf (AST/SGOT) 16 5-34 U/L Alanine Aminotransferase (ALT/SGPT) 10 0-55 U/L Alkaline Phosphatase 91 40-136 U/L Troponin I < 0.028 <0.028 NG/ML Total Protein 6.8 6.4-8.2 GM/DL Albumin 3.9 3.2-4.5 GM/DL Lipase 7 L 8-78 U/L Urine Color YELLOW Urine Clarity CLEAR Urine pH 6.5 5-9 Urine Specific [place] 1.010 L 1.016-1.022 Urine Protein 1+ H NEGATIVE Urine Glucose (UA) NEGATIVE NEGATIVE Urine Ketones NEGATIVE NEGATIVE Urine Nitrite NEGATIVE NEGATIVE Urine Bilirubin NEGATIVE NEGATIVE Urine Urobilinogen NORMAL NORMAL MG/DL Urine Leukocyte Esterase NEGATIVE NEGATIVE Urine RBC (Auto) 1+ H NEGATIVE Urine RBC 2-5 H /HPF Urine WBC RARE /HPF Urine Renal Epithelial Cells 0-2 /HPF Urine Crystals NONE /LPF Urine Bacteria TRACE /HPF Urine Casts NONE /LPF Urine Mucus NEGATIVE /LPF Urine Culture Indicated CULTURE PENDING Blood Gas Puncture Site LEFT BRACHIAL Blood Gas Patient Temperature 98.9 Arterial Blood pH 7.38 7.37-7.43 Arterial Blood Partial Pressure CO2 58 H 35-45 MMHG Arterial Blood Partial Pressure O2 69 L 79-93 MMHG Arterial Blood HCO3 33 H 23-27 MMOL/L Arterial Blood Total CO2 34.8 H 21.0-31.0 MMOL/L Arterial Blood Oxygen Saturation 96 94-100 % Arterial Blood Base Excess 7.9 H -2.5-2.5 MMOL/L Jc Test POSITIVE Blood Gas Ventilator Setting NO Blood Gas Inspired Oxygen 2 L (ANNA MARIE PULLIAM) My Orders Orders - ANNA MARIE PULLIAM Acetaminophen Tablet/Caplet (Tylenol T (04/14/19 20:00) (ANNA MARIE PULLIAM) Medications Given in ED Current Medications Medications Dose Ordered Sig/Anna Route Start Time Stop Time Status Last Admin Dose Admin Acetaminophen 650 mg ONCE ONCE PO 04/14/19 20:00 04/14/19 20:01 DC 04/14/19 20:07 650 MG Albuterol/ Ipratropium 3 ml ONCE ONCE INH 04/14/19 16:15 04/14/19 16:16 DC 04/14/19 16:19 3 ML Iohexol 100 ml ONCE ONCE IV 04/14/19 17:15 04/14/19 17:16 DC 04/14/19 18:14 48 ML Sodium Chloride 10 ml NEEDED PRN IV 04/14/19 17:15 04/14/19 22:26 DC 04/14/19 18:14 10 ML Sodium Chloride 100 ml ONCE ONCE IV 04/14/19 17:15 04/14/19 17:16 DC 04/14/19 18:14 80 ML (ANNA MARIE PULLIAM) Vital Signs/I&O 04/14/19 04/14/19 04/14/19 04/14/19 15:55 15:55 16:19 20:45 Temp 97.2 97.2 Pulse 80 93 Resp 26 20 B/P (MAP) 136/58 (84) 129/67 (87) Pulse Ox 100 100 100 96 O2 Delivery Nasal Cannula Nasal Cannula Nasal Cannula Nasal Cannula O2 Flow Rate 6.00 3.00 2.50 2.50 (ANNA MARIE PULLIAM) Vital Signs/I&O Capillary Refill : Less Than 3 Seconds (EVANGELINA CARBALLO MD) Blood Pressure Mean: 84 Progress Note : Progress Note Seen and evaluated. IV, labs, blood cultures, lactic acid, EKG and chest x-ray ordered. Normal saline 1 L bolus ordered. Duo neb ordered as well as Solu-Medrol 125 mg IV. We will check CT of head due to falls. Monitor patient. CT angiogram of the chest ordered due to elevated d-dimer. We will also get a contrasted study non-angiogram of the abdomen and pelvis due to abdominal pain and vomiting. 1800: Care transferred to Dr. Anna Marie Pulliam DNP pending CT scans. Patient resting comfortably. (EVANGELINA CARBALLO MD) Progress Note : Progress Note 1800 Assumed care of patient from Dr. Carballo. Patient continues to be resting in bed, no requests at this time. Son in-law in room. Will await CT and Chest CT-Angio [address] Abbott regarding blood products in ventricles. Recommended consult with neuro from Main 1929 Called [facility], on diversion for medical and ICU. 1944 Spoke with Janny Akhtar, neurosurgeon, agreed to accept patient, hold Aspirin and Plavix. Would like her transferred by EMS LILY to ED at [facility]. Spoke to Dr. Mejia in [facility] ED, agreed to accept patient on transfer and report given. All CT studies on cloud to [facility]. 1999 [facility] notified for transfer. Patient complaining of headache, VS remain stable. Tylenol 650 mg PO for headache. Discussed plans for transfer with the son-in-law, patient agreed to this plan. All records sent to [facility]. 2029 [facility] here for transfer. Patient reports headache has improved. No changes in neurological status. (ANNA MARIE PULLIAM) Diagnostic Imaging Diagonstic Imaging: Xray Plain Films/CT/US/NM/MRI: chest Comments NAME: MELANIE SIGALA MED REC#: [id number] PT STATUS: REG ER : 1950 PHYSICIAN: EVANGELINA CARBALLO MD ADMIT DATE: 04/14/19/ER Draft Date of Exam:04/14/19 CHEST 1 VIEW, AP/PA ONLY INDICATION: Shortness of air starting 2 days ago. Hurts with breathing.. TECHNIQUE: Single view chest at 5:31 PM. CORRELATION STUDY: 03/26/2019 FINDINGS: Heart size and mediastinum are generally stable. Vascularity is slightly prominent. There is prominent appearance about the central pulmonary artery suggestive of pulmonary arterial hypertension. Lung camp are hyperinflated with changes reflecting COPD. Scattered prominent interstitial markings are noted. Slight increased density in the right lung base and superimposed pneumonitis would be difficult to exclude. IMPRESSION: 1. Findings of advanced of COPD. Question a superimposed area of infiltrate developing at the right lung base. Dictated on workstation # [id number] Dict: 04/14/19 1749 Trans: 04/14/191753 [facility] [id number] Interpreted by: NAVA LAMB DO Electronically signed by: Mami Imaging: CT Plain Films/CT/US/NM/MRI: chest, abdomen, pelvis Comments NAME: MELANIE SIGALA [facility] REC#: [id number] PT STATUS: REG ER : 1950 PHYSICIAN: EVANGELINA CARBALLO MD ADMIT DATE: 04/14/19/ER Draft Date of Exam:04/14/19 CT JOVANI CHEST/NOANG ABD-PELV W INDICATION: Shortness of air starting two days ago. Hurts with breathing. TECHNIQUE: CT imaging of the chest, abdomen, and pelvis following administration of intravenous contrast. Multiplanar including MIP reformats. CORRELATION STUDY: CTA chest 03/24/2019. FINDINGS: CTA CHEST: Heart size is mildly enlarged with presence of coronary artery calcification. The thoracic aorta has moderate wall calcification, nonaneurysmal. Minimal irregular plaque-like formation. No dissection. The pulmonary arteries demonstrate no filling defect to reflect pulmonary embolism. There is suggestion of some circumferential wall thickening in lower third of the esophagus. No definitive pathologically enlarged mediastinal lymph nodes. Lung camp demonstrate advanced emphysematous disease. No consolidating infiltrate. Mild peribronchial thickening present. There is no significant pleural effusion. Advanced degenerative change about the thoracic spine. Nonacute compression fracture deformities are present. CT ABDOMEN and PELVIS: Heterogeneous attenuation of the liver without definitive focal lesion. Gallbladder, spleen, pancreas and adrenal glands appear unremarkable. Kidneys are relatively unremarkable without high-degree obstruction. There is dense aortoiliac wall calcification with slight ectasia. No aneurysmal dilatation. There is generalized haziness with some fluid about the abdomen and pelvis. Etiology is indeterminate. Gastrointestinal tract demonstrates no definitive evidence of obstruction. There is moderate severity fecal retention. No suggestion for free air. Urinary bladder is unremarkable. IMPRESSION: CTA CHEST: 1. No CTA evidence for pulmonary embolism or otherwise acute cardiopulmonary abnormality. 2. Advanced emphysematous lung disease. May be mild peribronchial thickening reflects nonspecific bronchiolitis. No lobar consolidation. 3. Question some circumferential wall thickening in lower esophagus, nonspecific. CT ABDOMEN and PELVIS: 1. Overall assessment of the abdomen is limited particularly owing to paucity of body fat, additionally owing to lack of gastrointestinal contrast. 2. There is suggestion of some haziness about the mesentery, small-volume ascites, nonspecific but is abnormal. This could be reflective of underlying inflammatory, infectious, or even potential malignant process. Consideration for short-term follow-up repeat CT imaging would be recommended. 3. Rather extensive aortoiliac wall calcification. Dictated on workstation # [id number] Dict: 04/14/19 1839 Trans: 04/14/19 1857 [id number] Interpreted by: NAVA LAMB DO Electronically signed by: Reviewed: Reviewed by Tx Diagonstic Imaging: CT Plain Films/CT/US/NM/MRI: head Comments NAME: MELANIE SIGALA [facility] REC#: [id number] PT STATUS: REG ER : 1950 PHYSICIAN: EVANGELINA CARBALLO MD ADMIT DATE: 04/14/19/ER Signed Date of Exam: 04/14/19 CT HEAD WO PROCEDURE: CT head without contrast. TECHNIQUE: Multiple contiguous axial images were obtained through the brain without the use of intravenous contrast. Auto Exposure Controls were utilized during the CT exam to meet ALARA standards for radiation dose reduction. INDICATION: Altered mental status, shortness of breath COMPARISONS: None FINDINGS: Midline structures are not displaced. There is unfavorable change with a trace amount of blood seen in the anterior horn of the left lateral ventricle adjacent to the left foramen of Monro. Blood products are also seen in the third ventricle extending to the cerebral aqueduct to the fourth ventricle. There is no midline shift, mass effect or hydrocephalus. There are no abnormal extra-axial fluid collections or hemorrhage. Basilar cisterns appear normal. Sinuses, orbits and mastoid air cells are normal. Bone windows show no calvarial changes. IMPRESSION: Trace amount of blood products seen in the ventricles including the anterior horn left lateral ventricle adjacent to the left foramen of Monro, third ventricle, cerebral aqueduct as well as within the fourth ventricle. Short-term followup at least within 24 hours is recommended. Dictated by: Dictated on workstation # [id number] Dict: 04/14/19 183 Trans: 04/14/191900 Interpreted by: ANGIE CUELLAR MD Electronically signed by: ANGIE CUELLAR MD 04/14/191900 Reviewed: Reviewed by Me (ANNA MARIE PULLIAM) Departure Impression Primary Impression: Falls Qualified Codes: W19.XXXA - Unspecified fall, initial encounter Additional Impressions: Fatigue Qualified Codes: R53.83 - Other fatigue Hemorrhage into ventricle Disposition: 02 XFER SHT-TRM HOSP Condition: Stable Transfer Time Spoke to Accepting Phy: 19:45 Transfer Progress Notes Spoke to Dr. Soliman at [facility] for Neurology, agreed to accept patient. Will transfer to ED for evaluation. Spoke to Dr. Mejia, agreed to accept patient at ED. ICU beds available. Transfer Time: 20:30 Method of Transfer: EMS (ANNA MARIE PULLIAM) Departure-Patient Inst. Referrals: CEASAR SNYDER MD (PCP/Family) Primary Care Physician Copy Copies To 1: CEASAR SNYDER MD, TIMOTHY D MD Apr 14, 2019 16:24 ANNA MARIE PULLIAM Apr 14, 2019 18:51
[2019-04-14 16:34] LABS: INR 0.9 (0.8-1.4); PROTHROMBIN TIME PATIENT 12.5 SEC (12.2-14.7)
[2019-04-14 16:39] LABS: ALANINE AMINOTRANSFERASE 10 U/L (0-55); ALBUMIN 3.9 GM/DL (3.2-4.5); ALKALINE PHOSPHATASE 91 U/L (40-136); BILIRUBIN,TOTAL 0.5 MG/DL (0.1-1.0); BUN/CREATININE RATIO 14; CALCIUM 9.5 MG/DL (8.5-10.1); CARBON DIOXIDE 37 MMOL/L (21-32); CHLORIDE 93 MMOL/L (98-107); CREATININE SERUM 0.66 MG/DL (0.60-1.30); GFR ESTIMATED > 60; GLUCOSE 113 MG/DL (70-105); LIPASE 7 U/L (8-78); POTASSIUM 4.9 MMOL/L (3.6-5.0); SODIUM 137 MMOL/L (135-145); TOTAL PROTEIN 6.8 GM/DL (6.4-8.2)
[2019-04-14 16:41] LABS: FIBRIN DEGRADATION PRODUCTS 1.44 UG/ML (0.00-0.49)
[2019-04-14] MEDS ORDERED: IOHEXOL 350 MG/ML 100 ML (OMNIPAQUE 350) VIAL IV ONE (17:15)
[2019-04-14] MEDS ORDERED: CATHETER FLUSH 10 ML SYR IV PRN (17:15)
[2019-04-14] MEDS ORDERED: HOLD METFORMIN - RECEIVED CONTRAST 20 ML VIAL IV SCH (17:15)
[2019-04-14] MEDS ORDERED: NS 100 ML (IVPB) BAG IV ONE (17:15)
--- NOTE | 2019-04-14 17:17 | NUR ---
Assisted pt to bedside commode w/o difficulty. Obtained urine sample to be sent to lab.
[2019-04-14 17:24] LABS: BILIRUBIN,URINE NEGATIVE (NEGATIVE); CLARITY,URINE CLEAR; COLOR,URINE YELLOW; GLUCOSE, URINE (UA) NEGATIVE (NEGATIVE); KETONES,URINE NEGATIVE (NEGATIVE); LEUKOCYTE ESTERASE ,URINE NEGATIVE (NEGATIVE); NITRITE,URINE NEGATIVE (NEGATIVE); PH,URINE 6.5 (5-9); PROTEIN,URINE 1+ (NEGATIVE); UROBILINOGEN,URINE NORMAL (NORMAL)
[2019-04-14 17:26] LABS: ABG BASE EXCESS 7.9 MMOL/L (-2.5-2.5); ABG OXYGEN SATURATION 96 % (94-100); ABG PCO2 58 MMHG (35-45); ABG PH 7.38 (7.37-7.43); ABG PO2 69 MMHG (79-93); ABG TCO2 34.8 MMOL/L (21.0-31.0)
[2019-04-14 17:30] LABS: WBC,URINE RARE /HPF
[2019-04-14 17:31] LABS: BACTERIA,URINE TRACE /HPF; RENAL EPITHELIAL CELLS,URINE 0-2 /HPF
[2019-04-14 17:31] LABS: ALLENS TEST POSITIVE; INSPIRED O2 2 L; PATIENT TEMP 98.9; VENTILATOR NO
--- NOTE | 2019-04-14 17:54 | Diagnostic Imaging Report ---
INDICATION: Shortness of air starting 2 days ago. Hurts with breathing.. TECHNIQUE: Single view chest at 5:31 PM. CORRELATION STUDY: 03/26/2019 FINDINGS: Heart size and mediastinum are generally stable. Vascularity is slightly prominent. There is prominent appearance about the central pulmonary artery suggestive of pulmonary arterial hypertension. Lung camp are hyperinflated with changes reflecting COPD. Scattered prominent interstitial markings are noted. Slight increased density in the right lung base and superimposed pneumonitis would be difficult to exclude. IMPRESSION: 1. Findings of advanced of COPD. Question a superimposed area of infiltrate developing at the right lung base. Dictated by: Dictated on workstation # [id number]
--- NOTE | 2019-04-14 18:50 | Diagnostic Imaging Report ---
PROCEDURE: CT head without contrast. TECHNIQUE: Multiple contiguous axial images were obtained through the brain without the use of intravenous contrast. Auto Exposure Controls were utilized during the CT exam to meet ALARA standards for radiation dose reduction. INDICATION: Altered mental status, shortness of breath COMPARISONS: None FINDINGS: Midline structures are not displaced. There is unfavorable change with a trace amount of blood seen in the anterior horn of the left lateral ventricle adjacent to the left foramen of Monro. Blood products are also seen in the third ventricle extending to the cerebral aqueduct to the fourth ventricle. There is no midline shift, mass effect or hydrocephalus. There are no abnormal extra-axial fluid collections or hemorrhage. Basilar cisterns appear normal. Sinuses, orbits and mastoid air cells are normal. Bone windows show no calvarial changes. IMPRESSION: Trace amount of blood products seen in the ventricles including the anterior horn left lateral ventricle adjacent to the left foramen of Monro, third ventricle, cerebral aqueduct as well as within the fourth ventricle. Short-term followup at least within 24 hours is recommended. Dictated by: Dictated on workstation # [id number]
--- NOTE | 2019-04-14 18:57 | Diagnostic Imaging Report ---
INDICATION: Shortness of air starting two days ago. Hurts with breathing. TECHNIQUE: CT imaging of the chest, abdomen, and pelvis following administration of intravenous contrast. Multiplanar including MIP reformats. CORRELATION STUDY: CTA chest 03/24/2019. FINDINGS: CTA CHEST: Heart size is mildly enlarged with presence of coronary artery calcification. The thoracic aorta has moderate wall calcification, nonaneurysmal. Minimal irregular plaque-like formation. No dissection. The pulmonary arteries demonstrate no filling defect to reflect pulmonary embolism. There is suggestion of some circumferential wall thickening in lower third of the esophagus. No definitive pathologically enlarged mediastinal lymph nodes. Lung camp demonstrate advanced emphysematous disease. No consolidating infiltrate. Mild peribronchial thickening present. There is no significant pleural effusion. Advanced degenerative change about the thoracic spine. Nonacute compression fracture deformities are present. CT ABDOMEN and PELVIS: Heterogeneous attenuation of the liver without definitive focal lesion. Gallbladder, spleen, pancreas and adrenal glands appear unremarkable. Kidneys are relatively unremarkable without high-degree obstruction. There is dense aortoiliac wall calcification with slight ectasia. No aneurysmal dilatation. There is generalized haziness with some fluid about the abdomen and pelvis. Etiology is indeterminate. Gastrointestinal tract demonstrates no definitive evidence of obstruction. There is moderate severity fecal retention. No suggestion for free air. Urinary bladder is unremarkable. IMPRESSION: CTA CHEST: 1. No CTA evidence for pulmonary embolism or otherwise acute cardiopulmonary abnormality. 2. Advanced emphysematous lung disease. May be mild peribronchial thickening reflects nonspecific bronchiolitis. No lobar consolidation. 3. Question some circumferential wall thickening in lower esophagus, nonspecific. CT ABDOMEN and PELVIS: 1. Overall assessment of the abdomen is limited particularly owing to paucity of body fat, additionally owing to lack of gastrointestinal contrast. 2. There is suggestion of some haziness about the mesentery, small-volume ascites, nonspecific but is abnormal. This could be reflective of underlying inflammatory, infectious, or even potential malignant process. Consideration for short-term follow-up repeat CT imaging would be recommended. 3. Rather extensive aortoiliac wall calcification. Dictated by: Dictated on workstation # [id number]
--- NOTE | 2019-04-14 19:57 | NUR ---
Pt report called to TRINY Eng from [facility] Emergency Room. TRINY Eng voices no questions or concerns regarding pt transfer ER-ER.
[2019-04-14] MEDS ORDERED: ACETAMINOPHEN 325 MG TABLET PO ONE (20:00)
[2019-04-14 20:45] VITALS: BP 129/67
== END 2019-04-14 20:45 | disposition short-term general hospital (02) ==
LOC: EDUNIT# 15:55 → ER 15:56
DX: I61.5 Nontraumatic intracerebral hemorrhage, intraventricular (principal); R53.83 Other fatigue; R29.6 Repeated falls; J44.9 Chronic obstructive pulmonary disease, unspecified; I25.10 Atherosclerotic heart disease of native coronary artery without angina pectoris; I25.2 Old myocardial infarction; I10 Essential (primary) hypertension; F41.0 Panic disorder [episodic paroxysmal anxiety]; F43.10 Post-traumatic stress disorder, unspecified; F31.9 Bipolar disorder, unspecified; G62.9 Polyneuropathy, unspecified; G25.81 Restless legs syndrome; I73.9 Peripheral vascular disease, unspecified; K21.9 Gastro-esophageal reflux disease without esophagitis; F17.290 Nicotine dependence, other tobacco product, uncomplicated; F17.210 Nicotine dependence, cigarettes, uncomplicated; Z87.19 Personal history of other diseases of the digestive system; Z85.828 Personal history of other malignant neoplasm of skin; Z95.5 Presence of coronary angioplasty implant and graft; Z85.43 Personal history of malignant neoplasm of ovary; Z90.710 Acquired absence of both cervix and uterus; Z88.5 Allergy status to narcotic agent; Z88.8 Allergy status to other drugs, medicaments and biological substances; Z79.82 Long term (current) use of aspirin; Z79.51 Long term (current) use of inhaled steroids; Z79.02 Long term (current) use of antithrombotics/antiplatelets; Z79.52 Long term (current) use of systemic steroids
CPT/HCPCS: 36415; 70450; 71045; 71275; 74177; 80053; 81000; 82805; 83605; 83690; 84484; 85025; 85379; 85610; 85730; 87040; 87070; 87088; 87205; 93005; 94640; 96361; 96374; 99291

== ENCOUNTER 2019-05-11 12:05 | Emergency (ER) | payer MEDICARE ==
[~2019-05-11] VITALS: Ht 152.4 cm; Wt 41.0 kg
[~2019-05-11 12:05] MED LIST changes: +NALOXONE 2 MG/2 ML (NARCAN) SYR ONE
[2019-05-11] MEDS ORDERED: MIDAZOLAM 5 MG/5 ML (VERSED) VIAL INJ ONE (12:07)
[2019-05-11] MEDS ORDERED: ROCURONIUM 10 MG/ML 5 ML SYRINGE IV ONE ×2 (12:07)
[2019-05-11] MEDS ORDERED: SUCCINYLCHOLINE INJ 100 MG/5 ML SYR INJ ONE (12:07)
[2019-05-11] MEDS ORDERED: methylPREDNISolone 125 MG (Solu-MEDROL) VIAL IV STA (12:16)
[2019-05-11] MEDS ORDERED: NALOXONE 0.4 MG/ML 1 ML (NARCAN) VIAL IV STA (12:16)
[2019-05-11] MEDS ORDERED: NS IV 1000 ML 1,000 ML IV SCH ×2 (12:16→15:19)
[2019-05-11 12:29] LABS: BASOPHILS % (AUTO) 0 % (0-10); EOSINOPHILS % (AUTO) 0 % (0-10); HEMATOCRIT 33 % (35-52); LYMPHOCYTES # (AUTO) 1.9 X 10^3 (1.0-4.0); LYMPHOCYTES % (AUTO) 10 % (12-44); MEAN CORPUSCULAR HEMOGLOBIN 32 PG (25-34); MEAN CORPUSCULAR HGB CONC 31 G/DL (32-36); MEAN CORPUSCULAR VOLUME 103 FL (80-99); MEAN PLATELET VOLUME 9.2 FL (7.4-10.4); MONOCYTES # (AUTO) 1.1 X 10^3 (0.0-1.0); MONOCYTES % (AUTO) 6 % (0-12); NEUTROPHILS # (AUTO) 14.8 X 10^3 (1.8-7.8); NEUTROPHILS % (AUTO) 83 % (42-75); PLATELET COUNT 665 10^3/uL (130-400); RED CELL DISTRIBUTION WIDTH 15.2 % (10.0-14.5); WHITE BLOOD COUNT 17.8 10^3/uL (4.3-11.0)
[2019-05-11] MEDS ORDERED: DEXAMETHASONE 4 MG/ML SDV (DECADRON) IH ONE (12:30)
[2019-05-11] MEDS ORDERED: RT-ALBUTEROL/IPRATROPIUM 3 ML (DUONEB) VIAL INH ONE (12:30)
[2019-05-11] MEDS ORDERED: RT-ALBUTEROL SULF 2.5 MG/3 ML PRE-MIX VIAL INH STA (12:35)
[2019-05-11 12:37] LABS: PROTHROMBIN TIME PATIENT 13.3 SEC (12.2-14.7)
[2019-05-11 12:41] LABS: BILIRUBIN,URINE NEGATIVE (NEGATIVE); CLARITY,URINE CLEAR; COLOR,URINE YELLOW; GLUCOSE, URINE (UA) NEGATIVE (NEGATIVE); KETONES,URINE NEGATIVE (NEGATIVE); LEUKOCYTE ESTERASE ,URINE 3+ (NEGATIVE); NITRITE,URINE POSITIVE (NEGATIVE); PH,URINE 6.5 (5-9); PROTEIN,URINE 1+ (NEGATIVE); UROBILINOGEN,URINE NORMAL (NORMAL)
[2019-05-11 12:44] LABS: ALANINE AMINOTRANSFERASE 10 U/L (0-55); ALBUMIN 3.4 GM/DL (3.2-4.5); ALKALINE PHOSPHATASE 93 U/L (40-136); AMYLASE 28 U/L (25-125); BILIRUBIN,TOTAL 0.2 MG/DL (0.1-1.0); BUN/CREATININE RATIO 15; CALCIUM 9.3 MG/DL (8.5-10.1); CARBON DIOXIDE 36 MMOL/L (21-32); CHLORIDE 95 MMOL/L (98-107); CREATINE KINASE 37 U/L (29-168); GFR ESTIMATED > 60; GLUCOSE 119 MG/DL (70-105); MAGNESIUM 2.1 MG/DL (1.8-2.4); POTASSIUM 5.1 MMOL/L (3.6-5.0); SODIUM 138 MMOL/L (135-145)
[2019-05-11] MEDS ORDERED: CEFEPIME INJECTION 1,000 MG in WATER (STERILE) FOR INJECTION 10 ML IV ONE (12:45)
[2019-05-11] MEDS ORDERED: IOHEXOL 350 MG/ML 100 ML (OMNIPAQUE 350) VIAL IV ONE (12:45)
[2019-05-11] MEDS ORDERED: NS 100 ML (IVPB) BAG IV ONE (12:45)
[2019-05-11] MEDS ORDERED: HOLD METFORMIN - RECEIVED CONTRAST 20 ML VIAL IV SCH (12:45)
[2019-05-11 12:46] LABS: ACETAMINOPHEN < 10 UG/ML (10-30)
[2019-05-11 12:50] LABS: ABG BASE EXCESS 8.8 MMOL/L (-2.5-2.5); ABG OXYGEN SATURATION 100 % (94-100); ABG PCO2 63 MMHG (35-45); ABG PH 7.36 (7.37-7.43); ABG PO2 220 MMHG (79-93); ABG TCO2 36.5 MMOL/L (21.0-31.0); ALLENS TEST YES-POS
[2019-05-11 12:51] LABS: INSPIRED O2 10 L; PATIENT TEMP 97.4; VENTILATOR NO
[2019-05-11 12:57] LABS: BACTERIA,URINE LARGE /HPF; SQUAMOUS EPITHELIAL CELL,UR RARE /HPF; WBC,URINE 50-100 /HPF
[2019-05-11 12:59] LABS: AMPHETAMINE SCREEN, URINE NEGATIVE (NEGATIVE); BARBITURATE SCREEN URINE NEGATIVE (NEGATIVE); BENZODIAZEPINES SCREEN URINE POSITIVE (NEGATIVE); CANNABINOID SCREEN, URINE NEGATIVE (NEGATIVE); COCAINE SCREEN URINE NEGATIVE (NEGATIVE); METHADONE STAT NEGATIVE (NEGATIVE); METHAMPHETAMINE SCREEN URINE S NEGATIVE (NEGATIVE); OPIATE SCREEN URINE POSITIVE (NEGATIVE); OXYCODONE STAT NEGATIVE (NEGATIVE); PROPOXYPHENE STAT NEGATIVE (NEGATIVE); TRICYCLIC ANTIDEPRESSANTS SCRE NEGATIVE (NEGATIVE)
[2019-05-11 13:04] LABS: CREATINE KINASE MB 3.1 NG/ML (<6.6)
[2019-05-11 13:08] LABS: BASOPHILS % (MANUAL) 0 %; EOSINOPHILS % (MANUAL) 0 %; LYMPHOCYTES % (MANUAL) 11 %; MONOCYTES % (MANUAL) 4 %; NEUTROPHILS % (MANUAL) 85 %
[2019-05-11 13:09] LABS: ANISOCYTOSIS SLIGHT; HYPOCHROMASIA SLIGHT
--- NOTE | 2019-05-11 13:25 | Diagnostic Imaging Report ---
Indication: Altered metal status. Time of exam: 1:01 PM Correlation is made with prior chest from 04/14/2019. The heart is enlarged but stable. Lungs appear to be clear. No infiltrate or failure is seen. No effusion or pneumothorax is identified. Impression: Cardiomegaly. Dictated by: Dictated on workstation # [id number]
[2019-05-11] MEDS ORDERED: FUROSEMIDE 40 MG/4 ML INJ (LASIX) IVP ONE ×2 (13:30→16:00)
--- NOTE | 2019-05-11 13:58 | ED General ---
General Chief Complaint: Altered Mental Status Stated Complaint: AMS Nursing Triage Note: PT BROUGHT IN BY [facility] FROM HOME WITH COMPLAINT OF UNRESPONSIVE. FAMILY TOLD EMS PT GOT UP AND GOT A CUP OF COFFEE, WITHIN 20 MINUTES PT WAS FOUND UNRESPONSIVE. FAMILY TOLD EMS THAT PT TAKES HYDROCODONES AND COULDVE TAKEN TOO MANY. PT WAS GIVEN NARCAN BY EMS. PT WAS 85% ON NC AT HOME. BS WAS 130 ON SCENE. Nursing Sepsis Screen: No Definite Risk Source of Information: EMS, Old Records Exam Limitations: Other (PT IS OBTUNDED) History of Present Illness Date Seen by Provider: May 11, 2019 Time Seen by Provider: 12:03 Initial Comments PT ARRIVES VIA EMS FROM HOME EMS WAS CALLED FOR UNRESPONSIVE PT PT LIVES WITH HER SISTER, AND SISTER REPORTED TO EMS THAT PT HAD BEEN UP AND DRANK A CUP OF COFFEE AND WENT BACK TO BED AND ALLEGEDLY "20 MINUTES LATER" THE SISTER FOUND HER UNRESPONSIVE IN BED SISTER REPORTED TO EMS THAT SHE "MIGHT HAVE TAKEN TOO MUCH HYDROCODONE" EMS GAVE PT NARCAN 2 MG WITH SLIGHT IMPROVEMENT EMS REPORT O2 SATS WERE 85% ON PT'S HOME O3 AT 3L/NC EMS PLACED PT ON NONREBREATHER MASK AND O2 SATS UP TO 100% PT RESPONSIVE TO DEEP PAINFUL STIMULI ACCUCHECK 130 PT WITH HISTORY OF OPIATE AND BENZODIAZEPINE ABUSE/EXCESSIVE USE AND OVERDOSED ON BOTH IN JANUARY OF THIS YEAR PILLS BROUGHT WITH PT DO NOT INCLUDE A BOTTLE OF BENZODIAZEPINES, ALTHOUGH PT HAS BEEN PRESCRIBED XANAX PILLS INCLUDE: -HYDROCODONE #42 FILLED ON 05/05/19--PRESCRIBED 1 TID PRN, WITH ONLY #14 LEFT IN BOTTLE -MORPHINE ER 15 NG # 56 FILLED ON 04/14/19 PRESCRIBED 1 BID, WITH #12 LEFT IN BOTTLE FAMILY VERIFIES THAT PT TAKES BOTH HYDROCODONE AND MORPHINE, IN ADDITION TO XANAX. PT HAS BEEN PRESCRIBED OPANA AND OXYMORPHONE IN THE PAST PT SEEN HERE AND TRANSFERRED TO [facility] 04/14/19 AFTER A FALL AND SUSTAINED AN INTRACRANIAL BLEED--TREATED NON-SURGICALLY PT WAS DISMISSED BACK HOME TO LIVE WITH HER SISTER, AND REPORTEDLY WAS BACK TO HER BASELINE PT WITH HISTORY OF FREQUENT FALLS, AND SUSTAINED A HIP FRACTURE 08/03/18 EMS REPORT THAT FAMILY WANTS HER TO BE A FULL CODE, DESPITE MULTIPLE PROVIDERS ADVISING THAT SHE NEEDS TO BE ON HOSPICE. DAUGHTER ARRIVES LATER AND CONFIRMS THAT PT IS TO BE A FULL CODE SISTER ARRIVES LATER AND STATES THAT "THE LOCK BOX GOT BROKEN" AND HAVE NEVER ATTEMPTED TO REPLACE IT AND ADMITS THAT SHE SUSPECTS THAT PT TOOK AN EXCESSIVE AMOUNT OF PAIN PILLS AND POSSIBLY BENZODIAZEPINES. SHE STATES SHE NEVER WATCHES THE PT WHEN SHE TAKES HER PILLS, BUT ADMITS THAT THEY HAVE BEEN ADVISED ON MULTIPLE OCCASIONS THAT PILLS NEED TO BE LOCKED UP AT ALL TIMES AND SOMEONE N EEDS TO ADMINISTER HER PILLS TO HER, BUT THIS HAS NOT BEEN DONE. PCP: [facility] Allergies and Home Medications Allergies Coded Allergies: oxymorphone (Verified Allergy, Unknown, Pt takes Morphine ER at home, 03/25/19) varenicline (Verified Allergy, Unknown, 08/03/18) Uncoded Allergies: PEANUTS (Allergy, Unknown, 03/24/19) Home Medications Acetaminophen 500 Mg Tablet, 1,000 MG PO Q4H PRN for PAIN-MILD, (Reported) Albuterol Sulfate 18 Gm Hfa.aer.ad, 2 PUFF INH Q4H PRN for SHORTNESS OF BREATH, (Reported) Alprazolam 0.5 Mg Tablet, 0.5 MG PO BID PRN for ANXIETY, (Reported) Aspirin 325 Mg Tablet.dr, 325 MG PO DAILY, (Reported) Atorvastatin Calcium 40 Mg Tablet, 40 MG PO HS, (Reported) Clopidogrel Bisulfate 75 Mg Tablet, 75 MG PO DAILY, (Reported) Fluticasone/Umeclidin/Vilanter 1 Each Blst.w.dev, 1 PUFF INH DAILY, (Reported) Gabapentin 600 Mg Tablet, 600 MG PO TID, (Reported) Ipratropium/Albuterol Sulfate 3 Ml Ampul.neb, 3 ML INH RTQ4HR Prescribed by: SINDY GALE on 03/26/19944 Loratadine 10 Mg Tablet, 10 MG PO DAILY Prescribed by: SINDY GALE on 03/26/19 09 Losartan Potassium 25 Mg Tablet, 25 MG PO DAILY Prescribed by: SAMANTHA OCONNOR on 03/26/19 1239 Metoprolol Tartrate 50 Mg Tablet, 50 MG PO BID, (Reported) Montelukast Sodium 10 Mg Tablet, 10 MG PO HS Prescribed by: SINDY GALE on 03/26/19 09 Morphine Sulfate 15 Mg Tablet.er, 15 MG PO BID, (Reported) Nitroglycerin 0.4 Mg Tab.subl, 0.4 MG SL UD PRN for CHEST PAIN, (Reported) Ondansetron 4 Mg Tab.rapdis, 4 MG PO Q8H PRN for NAUSEA/VOMITING-1ST LINE, (Reported) Paroxetine HCl 20 Mg Tablet, 20 MG PO DAILY, (Reported) Prednisone 10 Mg Tab.ds.pk, 10 MG PO DAILY Take 6 tabs(60mg)daily,decrease by 1 tab(10MG)daily. Prescribed by: SINDY GALE on 03/26/19 7605 Patient Home Medication List Home Medication List Reviewed: Yes Review of Systems Review of Systems Constitutional: other (UNABLE TO OBTAIN) Past Tlpmdoy-Jgicsc-Upvocb Hx Patient Social History Alcohol Use: Denies Use Recreational Drug Use: Yes (ABUSE/EXCESSIVE USE OF OPIATES AND BENZODIAZEPINES WITH OVERDOSES) 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 Smoking Status: Current Everyday Smoker (1 1/2 PPD SINCE AGE 9--SMOKES CIGARETTES AND CIGARS) Type Used: Cigars, Cigarettes Recent Foreign Travel: No Contact w/Someone Who Travel: No Recent Infectious Disease Expo: No Recent Hopitalizations: No Immunizations Up To Date Tetanus Booster (TDap): Unknown Date of Pneumonia Vaccine: Dec 05, 2018 Date of Influenza Vaccine: Jul 05, 2018 Seasonal Allergies Seasonal Allergies: No Past Medical History Surgeries: Yes (CARDIAC CATH--STENTS X 3; ? BOWEL SURGERY FOR CROHN'S ???; RIGHT HIP FX/ORIF WITH REVISION 08/2018; EGD/COLONOSCOPY ) Cardiac, Coronary Stent, Hysterectomy, Orthopedic Respiratory: Yes (SMOKED 1/2 PPD SINCE AGE 9; O2 AT 3L/NC CONTINUOUSLY) Asthma, COPD Currently Using CPAP: No Currently Using BIPAP: No Cardiac: Yes (STENTS X 3; IL X 3; FREQUENT PAC'S; MR/TR; CHRONIC ANGINA; ECHO 01/2019--EF 45-50%) Angina, Chronic Edema/Swelling, Coronary Artery Disease, Heart Attack, Heart Murmur, High Cholesterol, Hypertension, Peripheral Vascular, Valvular Heart Disease Neurological: Yes (sleepwalking; NUEROPATHY IN LEGS AND HANDS, PER PT; OLD LACUNAR INFARCTS; INTRACRANIAL BLEED 04/14/19 DUE TO FALL--RESOLVED OF 05/11/19) Neuropathy, Traumatic Brain Injury Reproductive Disorders: No Female Reproductive Disorders: Denies 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: Hysterectomy, Menopausal Sexually Transmitted Disease: No HIV/AIDS: No Genitourinary: No Gastrointestinal: Yes (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, WITH QUESTIONABLE SMALL BOWEL RESECTION; ) Colitis, Gastroesophageal Reflux, Crohns Disease, Ulcer Musculoskeletal: Yes (RESTLESS LEGS; CHRONIC NECK AND BACK PAIN; COMPRESSION FRACTURES; FREQUENT FALLS; RIGHT HIP FX/ORIF WITH REVISION 08/2018) Arthritis, Chronic Back Pain, Fractures Endocrine: No HEENT: Yes (STATED SHE HAS TROUBLE SEEING THE MENU) Loss of Vision: Right Hearing Impairment: Denies Cancer: Yes Skin, Ovarian Did You Recieve Any Treatments: Yes What Type of Treatment Did You: Surgical Intervention Psychosocial: Yes (PANIC ATTACKS, night terrors; RX DRUG ABUSE) Sleep Difficulties, Anxiety, PTSD, Bipolar, Depression Integumentary: Yes ("SKIN CANCER SPOTS") 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 7.0oz. [id number]; 17.1 BMI Method:Stated General Appearance: Cachetic, Moderate Distress, Other (DIRTY, VERY UNKEMPT, REEKS OF OLD URINE AND DISPOSABLE BRIEF/UNDERWEAR IS COMPLETELY SATURATED WITH OLD FOUL-SMELLING URINE, IS THE BLANKET SHE ARRIVES WITH . REEKS OF TOBACCO; PT ARRIVES WITH EYES CLOSED, BUT DOES MAKE PURPOSEFUL MOVEMENTS AND IS MOVING ALL EXTREMITIES, PT IS NOT VERBALIZING OR FOLLOWING COMMANDS. PT RESPONDS TO PAINFUL AND NOXIOUS STIMULI) HEENT: Other (NO TOP TEETH, FEW BOTTOM TEETH WITH EXTENSIVE DECAY. ORAL MUCOSA SLIGHTLY DRY AND TONGUE IS FISSURED. PUPILS ARE 3-4 MM/EQUAL AND MINIMALLY REACTIVE) Respiratory: Rhonci (AUDIBLE RHONCHI), Other (MILD TO MODERATELY DYSPNEIC ON ARRIVAL) Cardiovascular: Regular Rate, Rhythm (FREQUENT ECTOPY C/W PAC'S ), Systolic Murmur (2/6) Gastrointestinal: Soft Extremity: Pedal Edema (2+ EDEMA TO FEET AND ANKLES) Neurologic/Psychiatric: No Motor/Sensory Deficits, Other (MENTATION ABOVE; GROSS MOTOR /SENSORY IS INTACT PT WITHDRAWS TO PAINFUL AND NOXIOUS STIMULI, AND HAS PURPOSEFUL MOVEMENTS OF ARMS--PULLS AWAY OXYGEN MASK, ETC. SQUEEZES EYES TIGHT WHEN ATTEMPTING TO OPEN LIDS FOR LIGHT EXAM. PT IS NOT TALKING OR FOLLOWING ANY COMMANDS. PT DOES HAVE A GOOD GAG REFLEX. ) Skin: Normal Color, Warm/Dry, Tattoos/Piercings (MULTIPLE TATTOOS) Focused Exam Sepsis Stage: Sepsis Possible Source: Genitouriary Lactate Level 05/11/19 12:05: Lactic Acid Level 0.54 Time of Focused Exam: 14:00 Respiratory: Other (LUNGS WITH DECREASED AERATION IN BASES, BUT MINIMAL RESIDUAL RHONCHI) Cardiovascular: Regular Rate, Rhythm (WITH PAC'S), Normal Peripheral Pulses Skin: normal color, warm/dry Lactic Acid Level Within 3hrs of presentation: Admin fluids, Admin ABX, Blood cultures prior to ABX's, Focus exam, Lactate level Procedures/Interventions Date of ETT Placement: May 11, 2019 Intubation Method: orotracheal Tube Size: 7.5 Medications: Succinylcholine, Versed Positive End Tide CO2: Yes Breath Sounds after Intubation: bilateral-equal Intubation Complications: no complications Post Intubation Xray: Yes PERFORMED BY Durga MATUTE OF RT DEPT. Progress/Results/Core Measures Suspected Sepsis Recent Fever Within 48 Hours: No Infection Criteria Present: None New/Unexplained Altered Menta: No Sepsis Screen: No Definite Risk SIRS Temperature:97.4 Pulse: 87 Respiratory Rate: 17 Laboratory Tests 05/11/19 12:05: White Blood Count 17.8H Blood Pressure 151 /87 Mean: 108 05/11/19 12:05: Lactic Acid Level 0.54 Laboratory Tests 05/11/19 12:05: Creatinine 0.60, INR Comment 1.0, Platelet Count 665H, Total Bilirubin 0.2 Results/Orders Lab Results Laboratory Tests Test 05/11/19 12:05 05/11/19 12:15 05/11/19 12:23 05/11/19 14:53 Range/Units White Blood Count 17.8 H 4.3-11.0 10^3/uL Red Blood Count 3.16 L 4.35-5.85 10^6/uL Hemoglobin 10.0 L 11.5-16.0 G/DL Hematocrit 33 L 35-52 % Mean Corpuscular Volume 103 H 80-99 FL Mean Corpuscular Hemoglobin 32 25-34 PG Mean Corpuscular Hemoglobin Concent 31 L 32-36 G/DL Red Cell Distribution Width 15.2 H 10.0-14.5 % Platelet Count 665 H 130-400 10^3/uL Mean Platelet Volume 9.2 7.4-10.4 FL Neutrophils (%) (Auto) 83 H 42-75 % Lymphocytes (%) (Auto) 10 L 12-44 % Monocytes (%) (Auto) 6 0-12 % Eosinophils (%) (Auto) 0 0-10 % Basophils (%) (Auto) 0 0-10 % Neutrophils # (Auto) 14.8 H 1.8-7.8 X 10^3 Lymphocytes # (Auto) 1.9 1.0-4.0 X 10^3 Monocytes # (Auto) 1.1 H 0.0-1.0 X 10^3 Eosinophils # (Auto) 0.0 0.0-0.3 10^3/uL Basophils # (Auto) 0.0 0.0-0.1 10^3/uL Neutrophils % (Manual) 85 % Lymphocytes % (Manual) 11 % Monocytes % (Manual) 4 % Eosinophils % (Manual) 0 % Basophils % (Manual) 0 % Hypochromasia SLIGHT Basophilic Stippling SLIGHT Anisocytosis SLIGHT Macrocytosis SLIGHT Prothrombin Time 13.3 12.2-14.7 SEC INR Comment 1.0 0.8-1.4 Activated Partial Thromboplast Time 33 24-35 SEC Sodium Level 138 135-145 MMOL/L Potassium Level 5.1 H 3.6-5.0 MMOL/L Chloride Level 95 L 98-107 MMOL/L Carbon Dioxide Level 36 H 21-32 MMOL/L Anion Gap 7 5-14 MMOL/L Blood Urea Nitrogen 9 7-18 MG/DL Creatinine 0.60 0.60-1.30 MG/DL Estimat Glomerular Filtration Rate > 60 BUN/Creatinine Ratio 15 Glucose Level 119 H 70-105 MG/DL Lactic Acid Level 0.54 0.50-2.00 MMOL/L Calcium Level 9.3 8.5-10.1 MG/DL Corrected Calcium 9.8 8.5-10.1 MG/DL Magnesium Level 2.1 1.8-2.4 MG/DL Total Bilirubin 0.2 0.1-1.0 MG/DL Aspartate Amino Transf (AST/SGOT) 16 5-34 U/L Alanine Aminotransferase (ALT/SGPT) 10 0-55 U/L Alkaline Phosphatase 93 40-136 U/L Total Creatine Kinase 37 29-168 U/L Creatine Kinase MB 3.1 <6.6 NG/ML Myoglobin 25.4 10.0-92.0 NG/ML Troponin I < 0.028 <0.028 NG/ML B-Type Natriuretic Peptide 1068.6 H <100.0 PG/ML Total Protein 7.0 6.4-8.2 GM/DL Albumin 3.4 3.2-4.5 GM/DL Amylase Level 28 25-125 U/L Free Thyroxine 0.93 0.70-1.48 NG/DL TSH Palco Testing 0.20 L 0.35-4.94 UIU/ML Acetaminophen Level < 10 L 10-30 UG/ML Serum Alcohol < 10 <10 MG/DL Blood Gas Puncture Site LT BRACH RT RAD Blood Gas Patient Temperature 97.4 97.4 Arterial Blood pH 7.36 L 7.40 7.37-7.43 Arterial Blood Partial Pressure CO2 63 H 53 H 35-45 MMHG Arterial Blood Partial Pressure O2 220 H 38 *L 79-93 MMHG Arterial Blood HCO3 35 H 33 H 23-27 MMOL/L Arterial Blood Total CO2 36.5 H 34.7 H 21.0-31.0 MMOL/L Arterial Blood Oxygen Saturation 100 75 L 94-100 % Arterial Blood Base Excess 8.8 H 8.0 H -2.5-2.5 MMOL/L Jc Test YES-POS YES-POS Blood Gas Ventilator Setting NO NO Blood Gas Inspired Oxygen 10 L 30/35 Urine Color YELLOW Urine Clarity CLEAR Urine pH 6.5 5-9 Urine Specific Jadwin 1.010 L 1.016-1.022 Urine Protein 1+ H NEGATIVE Urine Glucose (UA) NEGATIVE NEGATIVE Urine Ketones NEGATIVE NEGATIVE Urine Nitrite POSITIVE H NEGATIVE Urine Bilirubin NEGATIVE NEGATIVE Urine Urobilinogen NORMAL NORMAL MG/DL Urine Leukocyte Esterase 3+ H NEGATIVE Urine RBC (Auto) 3+ H NEGATIVE Urine RBC 5-10 H /HPF Urine WBC 50-100 H /HPF Urine Squamous Epithelial Cells RARE /HPF Urine Crystals NONE /LPF Urine Bacteria LARGE H /HPF Urine Casts NONE /LPF Urine Mucus NEGATIVE /LPF Urine Culture Indicated YES Urine Opiates Screen POSITIVE H NEGATIVE Urine Oxycodone Screen NEGATIVE NEGATIVE Urine Methadone Screen NEGATIVE NEGATIVE Urine Propoxyphene Screen NEGATIVE NEGATIVE Urine Barbiturates Screen NEGATIVE NEGATIVE Ur Tricyclic Antidepressants Screen NEGATIVE NEGATIVE Urine Phencyclidine Screen NEGATIVE NEGATIVE Urine Amphetamines Screen NEGATIVE NEGATIVE Urine Methamphetamines Screen NEGATIVE NEGATIVE Urine Benzodiazepines Screen POSITIVE H NEGATIVE Urine Cocaine Screen NEGATIVE NEGATIVE Urine Cannabinoids Screen NEGATIVE NEGATIVE Test 05/11/19 15:36 Range/Units Blood Gas Puncture Site R RAD Blood Gas Patient Temperature 97.4 Arterial Blood pH 7.34 *L 7.37-7.43 Arterial Blood Partial Pressure CO2 60 H 35-45 MMHG Arterial Blood Partial Pressure O2 58 L 79-93 MMHG Arterial Blood HCO3 32 H 23-27 MMOL/L Arterial Blood Total CO2 34.0 H 21.0-31.0 MMOL/L Arterial Blood Oxygen Saturation 90 L 94-100 % Arterial Blood Base Excess 6.4 H -2.5-2.5 MMOL/L Jc Test YES-POS Blood Gas Ventilator Setting YES Blood Gas Inspired Oxygen UNK My Orders Orders - KEVON FIERRO DO Ed Iv/Invasive Line Start (05/11/19 12:16) Ekg Tracing (05/11/19 12:16) Catheter(Urinary) Insert & Ass 03,15 (05/11/19 12:16) O2 (05/11/19 12:16) Monitor-Rhythm Ecg Trace Only (05/11/19 12:16) Ct Angio Chest W (05/11/19 12:16) Ct Head Wo-R/O Stroke (05/11/19 12:16) Acetaminophen (05/11/19 12:16) Alcohol (05/11/19 12:16) Amylase (05/11/19 12:16) BNP (05/11/19 12:16) Cbc With Automated Diff (05/11/19 12:16) Comprehensive Metabolic Panel (05/11/19 12:16) Creatine Kinase (05/11/19 12:16) Creatine Kinase Mb (05/11/19 12:16) Drug Screen Stat (Urine) (05/11/19 12:16) Lactic Acid Analyzer (05/11/19 12:16) Magnesium (05/11/19 12:16) Protime With Inr (05/11/19 12:16) Partial Thromboplastin Time (05/11/19 12:16) Thyroid Analyzer (05/11/19 12:16) Ua Culture If Indicated (05/11/19 12:16) Blood Culture (05/11/19 12:16) Myoglobin Serum (05/11/19 12:16) Troponin I (05/11/19 12:16) Ed Iv/Invasive Line Start (05/11/19 12:16) Ns Iv 1000 Ml (Sodium Chloride 0.9%) (05/11/19 12:16) Albuterol/Ipra Inhalation Soln (Duoneb I (05/11/19 12:30) Dexamethasone Injection (Decadron Inject (05/11/19 12:30) Rt Request For Service (05/11/19 12:16) Methylprednisolone Sod Succ (Solu-Medrol (05/11/19 12:16) Chest 1 View, Ap/Pa Only (05/11/19 12:16) Naloxone Injection (Narcan Injection) (05/11/19 12:16) Svn Small Volume Nebulizer (05/11/19 12:16) Manual Differential (05/11/19 12:05) Cefepime Injection (Maxipime Injection) (05/11/19 12:45) Albuterol Pre-Mix Nebs (Rt) (Proventil (05/11/19 12:35) Svn Small Volume Nebulizer (05/11/19 12:35) Iohexol Injection (Omnipaque 350 Mg/Ml 1 (05/11/19 12:45) Received Contrast (Hold Metformin- Contr (05/11/19 12:45) Ns (Ivpb) (Sodium Chloride 0.9% Ivpb Bag (05/11/19 12:45) Sputum Culture (05/11/19 12:44) Arterial Blood Gas (05/11/19 12:47) Urine Culture (05/11/19 12:23) Free T4 (Free Thyroxine) (05/11/19 12:05) Furosemide Injection (Lasix Injection) (05/11/19 13:30) Naloxone Injection (Narcan Injection) (05/11/19 12:01) Arterial Blood Gas (05/11/19 14:23) Chest 1 View, Ap/Pa Only (05/11/19 15:16) Ng Tube Insert & Assessment (05/11/19 15:16) Ed Iv/Invasive Line Start (05/11/19 15:19) Ns Iv 1000 Ml (Sodium Chloride 0.9%) (05/11/19 15:19) Arterial Blood Gas (05/11/19 15:37) Furosemide Injection (Lasix Injection) (05/11/19 16:00) Midazolam Injection (Versed Injection) (05/11/19 12:07) Rocuronium 5 Ml Syringe (Rocuronium 5 Ml (05/11/19 12:07) Succinylcholine Injection (Succinylcholi (05/11/19 12:07) Furosemide Injection (Lasix Injection) (05/11/19 16:01) Rocuronium 5 Ml Syringe (Rocuronium 5 Ml (05/11/19 12:07) Medications Given in ED Current Medications Medications Dose Ordered Sig/Anna Route Start Time Stop Time Status Last Admin Dose Admin Albuterol/ Ipratropium 3 ml ONCE ONCE INH 05/11/19 12:30 05/11/19 12:31 DC 05/11/19 13:50 3 ML Cefepime HCl 1000 mg/Sterile Water 10 ml @ 200 mls/hr ONCE ONCE IV 05/11/19 12:45 05/11/19 12:47 DC 05/11/19 14:30 200 MLS/HR Dexamethasone Sodium Phosphate 20 mg ONCE ONCE IH 05/11/19 12:30 05/11/19 12:31 DC 05/11/19 13:50 20 MG Furosemide 40 mg ONCE ONCE IVP 05/11/19 13:30 05/11/19 13:31 DC 05/11/19 14:30 40 MG Furosemide 40 mg ONCE ONCE IVP 05/11/19 16:00 05/11/19 16:30 DC 05/11/19 16:08 40 MG Vital Signs/I&O 05/11/19 05/11/19 05/11/19 05/11/19 12:05 12:45 13:51 16:36 Temp 97.4 99.1 Pulse 87 95 Resp 17 14 B/P (MAP) 151/87 (108) 115/70 (85) Pulse Ox 94 96 O2 Delivery Non Rebreather Vapotherm Vapotherm Mechanical Ventilator O2 Flow Rate 10.00 30.00 FiO2 35 05/11/19 05/11/19 16:43 17:37 Temp 99.1 Pulse 96 101 Resp 14 14 B/P (MAP) 121/77 (92) Pulse Ox 96 97 O2 Delivery Mechanical Ventilator FiO2 80 Capillary Refill : Less Than 3 Seconds Blood Pressure Mean: 108 Progress Note : Progress Note PT GIVEN NARCAN ON ARRIVAL WITH MINIMAL IMPROVEMENT IN MENTAL STATUS--PT SOMEWHAT AGITATED, MOVING MORE, PULLING AT MONITORING DEVICES, MASK/O2 CANULA, ETC. BUT DID NOT WAKE UP OR SPEAK OR FOLLOW COMMANDS. PT DID HAVE A MASSIVE BM IMMEDIATELY AFTER NARCAN WAS GIVEN. PT PLACED ON VAPOTHERM AND PT TOLERATED WELL, WITH O2 SATS MAINTAINED AT 98-99% PT SUCTIONED WITH RETURN OF 20 ML OF SPUTUM--DID NOT GROSSLY APPEAR TO BE ASPIRATION / GASTRIC CONTENTS NO CHANGE IN MENTATION 1449--PT HAS RAPIDLY DESATURATED, AND WILL NOW INTUBATE PT--PERFORMED BY RT O2 SATS UP TO 100% AFTER INTUBATION NO DETERIORATION IN PT'S CONDITION DURING REMAINDER OF ER STAY ECG Initial ECG Impression Date: May 11, 2019 Initial ECG Impression Time: 15:46 Initial ECG Rate: 91 Initial ECG Impression: Nonspecific Changes Initial ECG Comparisson: Unchanged (SIMILAR TO MOST RECENT EKG, LATERAL Q WAVES SLIGHLY MORE PRONOUNCED. NO ACUTE ST SEGMENT CHANGES. ) Diagnostic Imaging Comments CXR--CARDIOMEGALY, NO ACUTE PROCESS, PER RADIOLOGIST REPORT AT 1358 CT HEAD--NO ACUTE PROCESS, PREVIOUS INTRACRANIAL BLEED HAS CLEARED CT CHEST ANGIOGRAM--RLL MINIMAL INFILTRATE/ATELECTASIS PER RADIOLOGIST REPORTS AT 1421 CXR--MODERATE PULMONARY EDEMA AND CARDIOMEGALY, PER RADIOLOGIST REPORT AT 1547. 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 DUGAN, ACCEPTS PT FOR ADMIT 1450--SPOKE WITH DR. DUGAN AGAIN AND INFORMED HIM OF CHANGE IN PT'S CONDITION AND THAT PT WILL BE INTUBATED. NO CHANGE IN TRANSFER PLAN. Impression Primary Impression: Obtunded Additional Impressions: DRUG OVERDOSE OF OPIATES AND BENZODIAZEPINES Sepsis PULMNARY EDEMA/CHF--POSSIBLE ARDS Pneumonia UTI (urinary tract infection) Acute on chronic respiratory failure Emaciation RECENT INTRACRANIAL BLEED 04/14/19 SEVERE CAD AND ASVD Disposition: 02 XFER [facility] HOSP Condition: Stable (BUT SERIOUS) Admissions Decision to Admit Reason: Admit from ER (General) Decision to Admit/Date: May 11, 2019 Time/Decision to Admit Time: 14:45 Departure-Patient Inst. Referrals: CEASAR SNYDER MD (PCP/Family) Primary Care Physician KEVON FIERRO DO May 11, 2019 13:58
--- NOTE | 2019-05-11 14:01 | Diagnostic Imaging Report ---
PROCEDURE: CT head wo r/o stroke. TECHNIQUE: Multiple contiguous axial images were obtained through the brain without the use of intravenous contrast. Auto Exposure Controls were utilized during the CT exam to meet ALARA standards for radiation dose reduction. INDICATION: Unresponsive. COMPARISON: Correlation is made with head CT from 04/14/2019. FINDINGS: Ventricular size is stable. Areas of acute hemorrhage within the ventricular system on prior CT are no longer visualized. No acute intra-axial or extra-axial hemorrhage is seen on today's study. There is no mass effect or midline shift. Cisterns are patent. Visualized paranasal sinuses are clear. IMPRESSION: No acute intracranial process is detected. Dictated by: Dictated on workstation # [id number]
--- NOTE | 2019-05-11 14:04 | Diagnostic Imaging Report ---
PROCEDURE: CT angiography of the chest with contrast. TECHNIQUE: Multiple contiguous axial images were obtained through the chest after uneventful bolus administration of intravenous contrast. 2D reconstructed CTA MIP acquisitions were also performed. Auto Exposure Controls were utilized during the CT exam to meet ALARA standards for radiation dose reduction. INDICATION: Unresponsive. COMPARISON: Correlation is made with prior CT angiogram of the chest from 04/14/2019. FINDINGS: The pulmonary arterial system is without evidence of thromboembolism. No filling defects are seen within the central, lobar, or segmental branches. The thoracic aorta shows some calcified plaque throughout. No dissection or aneurysm is seen. No pericardial or pleural fluid is identified. Centrilobular emphysematous changes are identified in both lungs. There appears to be some minimal slightly nodular infiltrate in the right lower lobe. Otherwise, the lungs are clear. Upper abdomen is unremarkable. IMPRESSION: 1. No evidence of pulmonary embolism or thoracic aortic dissection. 2. Minimal slightly nodular infiltrate or atelectasis in the right lower lobe. Dictated by: Dictated on workstation # [id number]
[2019-05-11 14:22] LABS: FREE T4 (FREE THYROXINE) 0.93 NG/DL (0.70-1.48)
[2019-05-11 14:59] LABS: ABG OXYGEN SATURATION 75 % (94-100); ABG PCO2 53 MMHG (35-45); ABG TCO2 34.7 MMOL/L (21.0-31.0)
[2019-05-11 15:04] LABS: ABG PO2 38 MMHG (79-93); ALLENS TEST YES-POS; INSPIRED O2 30/35; PATIENT TEMP 97.4; VENTILATOR NO
[2019-05-11 15:43] LABS: ABG BASE EXCESS 6.4 MMOL/L (-2.5-2.5); ABG OXYGEN SATURATION 90 % (94-100); ABG PCO2 60 MMHG (35-45); ABG PO2 58 MMHG (79-93); ALLENS TEST YES-POS; PATIENT TEMP 97.4; VENTILATOR YES
--- NOTE | 2019-05-11 15:43 | Diagnostic Imaging Report ---
EXAMINATION: Chest, one view. HISTORY: Unresponsive. FINDINGS: Comparison is 05/11/2019. Patient is intubated with the endotracheal tube just above the cindy. Gastric tube tip terminates below the [id number] and side-port in the distal esophagus. There is moderate pulmonary edema, and the heart is enlarged. The pulmonary artery is also enlarged. No consolidation. No pleural effusion. No pneumothorax. IMPRESSION: 1. Moderate pulmonary edema and enlargement of the cardiac silhouette, unchanged. Dictated by: Dictated on workstation # [id number]
[2019-05-11 15:44] LABS: ABG PH 7.34 (7.37-7.43)
--- NOTE | 2019-05-11 16:00 | NUR ---
1458- PT GIVEN 4MG VERSED 1458- PT GIVEN 50MG SUCC 1459- FIRST ATTEMPT INTUBATION. UNSUCCESSFUL, PT BAGGED 1503- SECOND ATTEMPT AT INTUBATION. 7.5 ETT, 23@ THE LIP 1505- PTS MOUTH SUCTIONED 1506- PT GIVEN HARSH 70MG 1507- PT IN LINE SUCTIONED 1511- PT PLACED ON VENTILATOR 1512- 16FR OG INSERTED
[2019-05-11] MEDS ORDERED: FUROSEMIDE 40 MG/4 ML INJ (LASIX) ONE (16:01)
--- NOTE | 2019-05-11 16:06 | NUR ---
1800 ML OF URINE EMPTIED OUT OF MOTA.
--- NOTE | 2019-05-11 16:33 | NUR ---
[facility] CALLED FOR TRANSPORT
[2019-05-11 16:36] VITALS: BP 115/70
--- NOTE | 2019-05-11 17:04 | NUR ---
PT GIVEN 70MG ROCC PER DR FIERRO VERBAL ORDER
[2019-05-11 17:37] VITALS: BP 121/77
== END 2019-05-11 17:37 | disposition short-term general hospital (02) ==
LOC: EDUNIT# 12:05 → ER 12:06
DX: A41.9 Sepsis, unspecified organism (principal); J18.9 Pneumonia, unspecified organism; T40.602A Poisoning by unspecified narcotics, intentional self-harm, initial encounter; T42.4X2A Poisoning by benzodiazepines, intentional self-harm, initial encounter; N39.0 Urinary tract infection, site not specified; J96.20 Acute and chronic respiratory failure, unspecified whether with hypoxia or hypercapnia; R64 Cachexia; I25.10 Atherosclerotic heart disease of native coronary artery without angina pectoris; I50.1 Left ventricular failure, unspecified; F11.10 Opioid abuse, uncomplicated; I25.2 Old myocardial infarction; J44.9 Chronic obstructive pulmonary disease, unspecified; I11.0 Hypertensive heart disease with heart failure; E78.00 Pure hypercholesterolemia, unspecified; I73.9 Peripheral vascular disease, unspecified; G62.9 Polyneuropathy, unspecified; K21.9 Gastro-esophageal reflux disease without esophagitis; F31.9 Bipolar disorder, unspecified; F43.10 Post-traumatic stress disorder, unspecified; F41.9 Anxiety disorder, unspecified; F17.210 Nicotine dependence, cigarettes, uncomplicated; F17.290 Nicotine dependence, other tobacco product, uncomplicated; Z85.828 Personal history of other malignant neoplasm of skin; Z85.43 Personal history of malignant neoplasm of ovary; Z99.81 Dependence on supplemental oxygen; Z88.5 Allergy status to narcotic agent; Z79.82 Long term (current) use of aspirin; Z79.02 Long term (current) use of antithrombotics/antiplatelets; Z95.5 Presence of coronary angioplasty implant and graft; Z90.710 Acquired absence of both cervix and uterus
CPT/HCPCS: 31500; 36415; 36600; 51702; 70450; 71045; 71275; 80053; 80306; 80320; 80329; 81000; 82150; 82550; 82553; 82805; 83605; 83735; 83874; 83880; 84439; 84443; 84484; 85007; 85027; 85610; 85730; 87040; 87070; 87077; 87088; 87186; 87205; 93005; 93041; 94002; 94640; 94644; 94799; 96361; 96365; 96375; 99291

== ENCOUNTER 2019-09-12 15:18 | Observation (INO) | payer MEDICARE, MEDICAID ==
[~2019-09-12] VITALS: Ht 57 cm; Wt 43.9 kg
[2019-09-12] VITALS (8 sets, daily range): BP systolic 96–102; BP diastolic 57–67
[~2019-09-12 15:18] MED LIST changes: +ALBU2.5V4 NEB; +AMLO5TAB9 PO; +AMOX-358 PO; +BUDE0.5A INH; +FLUT1DIS27 IH; +FURO-124 PO; +HYDR-3812 PO; -NALOXONE 2 MG/2 ML (NARCAN) SYR ONE; +POTA10CA43 PO; +SPIR100T4 PO
[2019-09-12] MEDS ORDERED: ASPIRIN 81 MG CHEW (CHILDREN'S ASA) ONE (15:25)
[2019-09-12] MEDS ORDERED: NS IV 1000 ML 1,000 ML ONE (15:25)
[2019-09-12] MEDS ORDERED: NS IV 1000 ML 1,000 ML IV SCH (15:30)
[2019-09-12] MEDS ORDERED: ASPIRIN 81 MG CHEW (CHILDREN'S ASA) PO ONE (15:30)
--- NOTE | 2019-09-12 15:30 | NUR ---
See current list for medications.
--- NOTE | 2019-09-12 15:37 | ED Chest Pain ---
General Stated Complaint: CP Source: patient Exam Limitations: no limitations History of Present Illness Date Seen by Provider: Sep 12, 2019 Time Seen by Provider: 15:32 Initial Comments To ER with reports of chest pain. She arrives per EMS from home, chest pain started 4 hours ago while at rest. She has an extensive coronary artery disease history, follows with Dr. Brooke. She took 6 nitroglycerin sublingual over the course of the past 4 hours, on EMS arrival her initial blood pressure was in the 60s systolic. EMS was unable to establish IV access, upon arrival to ER her blood pressure is 76/51, IV access was established, normal saline infusing, aspirin given. Currently, she is chest pain-free. Timing/Duration: 4-6 hours Severity/Quality: moderate Radiation: no radiation Prior CP/Workup: cardiac cath, heart attack Allergies and Home Medications Allergies Coded Allergies: oxymorphone (Verified Allergy, Unknown, Pt takes Morphine ER at home, 09/02/19) varenicline (Verified Allergy, Unknown, 09/02/19) Uncoded Allergies: PEANUTS (Allergy, Unknown, 03/24/19) Home Medications Acetaminophen 500 Mg Tablet, 1,000 MG PO Q4H PRN for PAIN-MILD, (Reported) Albuterol Sulfate 18 Gm Hfa.aer.ad, 2 PUFF INH Q6H PRN for SHORTNESS OF BREATH, (Reported) Alprazolam 0.5 Mg Tablet, 0.5 MG PO TID PRN for ANXIETY Prescribed by: SNIDY GALE on 09/09/19 1133 Amlodipine Besylate 5 Mg Tablet, 5 MG PO DAILY Prescribed by: SNIDY GALE on 09/09/19 1133 Amoxicillin/Potassium Clav 1 Each Tablet, 1 EACH PO BID Prescribed by: SINDY GALE on 09/09/19 1133 Aspirin 325 Mg Tablet.dr, 325 MG PO DAILY, (Reported) Atorvastatin Calcium 40 Mg Tablet, 40 MG PO HS, (Reported) Budesonide 0.5 Mg/2 Ml Ampul.neb, 0.5 MG INH RTBID Prescribed by: SINDY GALE on 09/09/19 113 Clopidogrel Bisulfate 75 Mg Tablet, 75 MG PO DAILY, (Reported) Fluticasone/Salmeterol 1 Each Blst.w.dev, 1 EACH IH BID Prescribed by: SINDY GALE on 09/09/19 1133 Furosemide 40 Mg Tablet, 40 MG PO Q48H Prescribed by: SINDY GALE on 09/09/19 113 Gabapentin 600 Mg Tablet, 600 MG PO TID Prescribed by: SINDY GALE on 09/09/19 113 Hydrocodone/Acetaminophen 1 Each Tablet, 1 TAB PO TID PRN for PAIN-MODERATE Prescribed by: SINDY GALE on 09/09/19 113 Ipratropium/Albuterol Sulfate 3 Ml Ampul.neb, 3 ML INH RTQ4HR Prescribed by: SINDY GALE on 09/09/19 113 Lisinopril 10 Mg Tablet, 10 MG PO DAILY, (Reported) LAST FILLED #30 07-20-19 Metoprolol Tartrate 50 Mg Tablet, 50 MG PO BID, (Reported) LAST FILLED #180 04-21-19 Nitroglycerin 0.4 Mg Tab.subl, 0.4 MG SL UD PRN for CHEST PAIN, (Reported) Ondansetron 4 Mg Tab.rapdis, 4 MG PO Q8H PRN for NAUSEA/VOMITING-1ST LINE, (Reported) Paroxetine HCl 20 Mg Tablet, 20 MG PO DAILY, (Reported) Potassium Chloride 10 Meq Capsule.er, 10 MEQ PO Q48H Prescribed by: SINDY GALE on 09/09/19 113 Prednisone 10 Mg Tab.ds.pk, 40 MG PO DAILY Prescribed by: SINDY GALE on 09/09/19 113 Spironolactone 100 Mg Tablet, 100 MG PO DAILY Prescribed by: SINDY GALE on 09/09/19 113 Patient Home Medication List Home Medication List Reviewed: Yes Review of Systems Review of Systems Constitutional: see HPI EENTM: No Symptoms Reported Respiratory: No Symptoms Reported Cardiovascular: See HPI, Chest Pain Gastrointestinal: No Symptoms Reported Genitourinary: No Symptoms Reported Musculoskeletal: no symptoms reported Skin: no symptoms reported Psychiatric/Neurological: No Symptoms Reported Endocrine: No Symptoms Reported Hematologic/Lymphatic: No Symptoms Reported Past Vmgewfo-Tweifb-Momjaq Hx Patient Social History 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 Type Used: Cigars, Cigarettes Recent Foreign Travel: No Contact w/Someone Who Travel: No Recent Hopitalizations: No Immunizations Up To Date Tetanus Booster (TDap): Unknown Date of Pneumonia Vaccine: Dec 05, 2018 Date of Influenza Vaccine: Jul 05, 2018 Seasonal Allergies Seasonal Allergies: No Past Medical History Surgeries: Yes Cardiac, Coronary Stent, Hysterectomy, Orthopedic Respiratory: Yes (SMOKED 1/2 PPD SINCE AGE 9; O2 AT 2L/NC CONTINUOUSLY) Asthma, COPD Currently Using CPAP: No Currently Using BIPAP: No Cardiac: Yes Angina, Chronic Edema/Swelling, Coronary Artery Disease, Heart Attack, Heart Murmur, High Cholesterol, Hypertension, Peripheral Vascular, Valvular Heart Disease Neurological: Yes Neuropathy, Traumatic Brain Injury Reproductive Disorders: No Female Reproductive Disorders: Denies 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, 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 Sexually Transmitted Disease: No HIV/AIDS: No Genitourinary: No Gastrointestinal: Yes (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, WITH QUESTIONABLE SMALL BOWEL RESECTION; ) Colitis, Gastroesophageal Reflux, Crohns Disease, Ulcer Musculoskeletal: Yes Arthritis, Chronic Back Pain, Fractures Endocrine: No HEENT: Yes (STATED SHE HAS TROUBLE SEEING THE MENU) Loss of Vision: Right Hearing Impairment: Denies Cancer: Yes Skin, Ovarian Did You Recieve Any Treatments: Yes What Type of Treatment Did You: Surgical Intervention Psychosocial: Yes (PANIC ATTACKS, night terrors; RX DRUG ABUSE) Sleep Difficulties, Anxiety, PTSD, Bipolar, Depression Integumentary: Yes ("SKIN CANCER SPOTS") 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 7.0oz. 41.929875nm; 533.33 BMI Method:Stated General Appearance: No Apparent Distress, WD/WN, Thin, Other (appears much older than stated age) HEENT: PERRL/EOMI, TMs Normal Neck: Full Range of Motion, Normal Inspection Respiratory: Normal Breath Sounds, No Accessory Muscle Use, No Respiratory Distress Cardiovascular: Regular Rate, Rhythm Gastrointestinal: Normal Bowel Sounds, Non Tender, Soft Neurologic/Psychiatric: Alert, Oriented x3 Skin: Normal Color, Warm/Dry Procedures/Interventions Date of ETT Placement: May 11, 2019 Progress/Results/Core Measures Results/Orders Lab Results Laboratory Tests Test 09/12/19 15:28 11/9/19 16:40 Range/Units White Blood Count 12.1 H 4.3-11.0 10^3/uL Red Blood Count 3.92 L 4.35-5.85 10^6/uL Hemoglobin 12.1 11.5-16.0 G/DL Hematocrit 36 35-52 % Mean Corpuscular Volume 92 80-99 FL Mean Corpuscular Hemoglobin 31 25-34 PG Mean Corpuscular Hemoglobin Concent 33 32-36 G/DL Red Cell Distribution Width 15.4 H 10.0-14.5 % Platelet Count 352 130-400 10^3/uL Mean Platelet Volume 9.5 7.4-10.4 FL Neutrophils (%) (Auto) 94 H 42-75 % Lymphocytes (%) (Auto) 4 L 12-44 % Monocytes (%) (Auto) 2 0-12 % Eosinophils (%) (Auto) 0 0-10 % Basophils (%) (Auto) 0 0-10 % Neutrophils # (Auto) 11.4 H 1.8-7.8 X 10^3 Lymphocytes # (Auto) 0.4 L 1.0-4.0 X 10^3 Monocytes # (Auto) 0.3 0.0-1.0 X 10^3 Eosinophils # (Auto) 0.0 0.0-0.3 10^3/uL Basophils # (Auto) 0.0 0.0-0.1 10^3/uL Neutrophils % (Manual) 93 % Lymphocytes % (Manual) 5 % Monocytes % (Manual) 2 % Blood Morphology Comment NORMAL Prothrombin Time 12.5 12.2-14.7 SEC INR Comment 0.9 0.8-1.4 Activated Partial Thromboplast Time 23 L 24-35 SEC Sodium Level 131 L 135-145 MMOL/L Potassium Level 5.0 3.6-5.0 MMOL/L Chloride Level 94 L 98-107 MMOL/L Carbon Dioxide Level 28 21-32 MMOL/L Anion Gap 9 5-14 MMOL/L Blood Urea Nitrogen 23 H 7-18 MG/DL Creatinine 0.78 0.60-1.30 MG/DL Estimat Glomerular Filtration Rate > 60 BUN/Creatinine Ratio 29 Glucose Level 144 H 70-105 MG/DL Calcium Level 8.3 L 8.5-10.1 MG/DL Corrected Calcium 8.6 8.5-10.1 MG/DL Magnesium Level 1.8 1.6-2.4 MG/DL Total Bilirubin 0.3 0.1-1.0 MG/DL Aspartate Amino Transf (AST/SGOT) 23 5-34 U/L Alanine Aminotransferase (ALT/SGPT) 18 0-55 U/L Alkaline Phosphatase 57 40-136 U/L Myoglobin 85.0 10.0-92.0 NG/ML Troponin I 0.036 H <0.028 NG/ML B-Type Natriuretic Peptide 386.8 H <100.0 PG/ML Total Protein 6.1 L 6.4-8.2 GM/DL Albumin 3.6 3.2-4.5 GM/DL Urine Color YELLOW Urine Clarity CLEAR Urine pH 7.5 5-9 Urine Specific [place] 1.010 L 1.016-1.022 Urine Protein NEGATIVE NEGATIVE Urine Glucose (UA) NEGATIVE NEGATIVE Urine Ketones NEGATIVE NEGATIVE Urine Nitrite NEGATIVE NEGATIVE Urine Bilirubin NEGATIVE NEGATIVE Urine Urobilinogen 0.2 < = 1.0 MG/DL Urine Leukocyte Esterase NEGATIVE NEGATIVE Urine RBC (Auto) NEGATIVE NEGATIVE Urine RBC NONE /HPF Urine WBC NONE /HPF Urine Squamous Epithelial Cells 0-2 /HPF Urine Crystals PRESENT H /LPF Urine Amorphous Sediment FEW TOAN URATES H /LPF Urine Bacteria NEGATIVE /HPF Urine Casts NONE /LPF Urine Mucus NEGATIVE /LPF Urine Culture Indicated NO Urine Opiates Screen POSITIVE H NEGATIVE Urine Oxycodone Screen NEGATIVE NEGATIVE Urine Methadone Screen NEGATIVE NEGATIVE Urine Propoxyphene Screen NEGATIVE NEGATIVE Urine Barbiturates Screen NEGATIVE NEGATIVE Ur Tricyclic Antidepressants Screen NEGATIVE NEGATIVE Urine Phencyclidine Screen NEGATIVE NEGATIVE Urine Amphetamines Screen NEGATIVE NEGATIVE Urine Methamphetamines Screen NEGATIVE NEGATIVE Urine Benzodiazepines Screen POSITIVE H NEGATIVE Urine Cocaine Screen NEGATIVE NEGATIVE Urine Cannabinoids Screen NEGATIVE NEGATIVE My Orders Orders - JODY JUAREZ EDUCATION SALES CONSULTANT Cbc With Automated Diff (09/12/19 15:29) Magnesium (09/12/19 15:29) Chest 1 View, Ap/Pa Only (09/12/19 15:29) Ekg Tracing (09/12/19 15:29) Cardiac Profile 1 (09/12/19 15:29) Comprehensive Metabolic Panel (09/12/19 15:29) Myoglobin Serum (09/12/19 15:29) Protime With Inr (09/12/19 15:29) Partial Thromboplastin Time (09/12/19 15:29) O2 (09/12/19 15:29) Monitor-Rhythm Ecg Trace Only (09/12/19 15:29) Lipid Panel (09/13/19 06:00) Ed Iv/Invasive Line Start (09/12/19 15:29) BNP (09/12/19 15:29) Aspirin Chewable Tablet (Baby Aspirin Ch (09/12/19 15:30) Ns Iv 1000 Ml (Sodium Chloride 0.9%) (09/12/19 15:30) Manual Differential (09/12/19 15:28) Ct Angio Chest W (09/12/19 16:04) Iohexol Injection (Omnipaque 350 Mg/Ml 1 (09/12/19 16:15) Received Contrast (Hold Metformin- Contr (09/12/19 16:15) Sodium Chloride Flush (Catheter Flush Sy (09/12/19 16:15) Ns (Ivpb) (Sodium Chloride 0.9% Ivpb Bag (09/12/19 16:15) Ua Culture If Indicated (09/12/19 16:39) Drug Screen Stat (Urine) (09/12/19 16:39) Medications Given in ED Current Medications Medications Dose Ordered Sig/Anna Route Start Time Stop Time Status Last Admin Dose Admin Aspirin 324 mg ONCE ONCE PO 09/12/19 15:30 09/12/19 15:31 DC 09/12/19 15:30 324 MG Iohexol 100 ml ONCE ONCE IV 09/12/19 16:15 09/12/19 16:16 DC 09/12/19 16:45 46 ML Sodium Chloride 10 ml NEEDED PRN IV 09/12/19 16:15 09/12/19 16:45 10 ML Sodium Chloride 100 ml ONCE ONCE IV 09/12/19 16:15 09/12/19 16:16 DC 09/12/19 16:45 80 ML Vital Signs/I&O 09/12/19 09/12/19 09/12/19 15:20 15:20 15:20 Temp 37.0 Pulse 99 Resp 23 B/P (MAP) 92/57 (69) Pulse Ox 98 98 O2 Delivery Nasal Cannula Nasal Cannula Nasal Cannula O2 Flow Rate 2.00 2.0 2.00 Departure Communication (Admissions) Time/Spoke to Admitting Phy: 17:[address] Mo, we'll admit consult cardiology's. Spoke with Dr. Singh, we'll admit, continue her home pain medication regimen since she is opioid dependent. At this time she states that she is feeling much better and would like to go home, however she would agree to stay for one night be evaluated by cardiology. 1538-her the initial EKG was interpreted by the machine as acute FL, this was because of questionable ST elevation in leads 23 and aVF however when compared to the most recent EKG from September 02 this is not a change. Discussed with Dr. Carrasco, he agrees. We'll continue to work her up. She did take 6 sublingual nitroglycerin since the onset of this pain this morning on arrival her blood pressure was in the 70s however she is currently at 108/55. Impression Primary Impression: Chest pain Qualified Codes: R07.9 - Chest pain, unspecified Disposition: 01 HOME, SELF-CARE Condition: Stable Admissions Decision to Admit Reason: Admit from ER (General) Decision to Admit/Date: Sep 12, 2019 Time/Decision to Admit Time: 17:36 Departure-Patient Inst. Referrals: CEASAR SNYDER MD (PCP/Family) Primary Care Physician JODY JUAREZ APRN Sep 12, 2019 15:37 POS
[2019-09-12 15:39] LABS: BASOPHILS % (AUTO) 0 % (0-10); EOSINOPHILS % (AUTO) 0 % (0-10); HEMATOCRIT 36 % (35-52); HEMOGLOBIN 12.1 G/DL (11.5-16.0); LYMPHOCYTES # (AUTO) 0.4 X 10^3 (1.0-4.0); LYMPHOCYTES % (AUTO) 4 % (12-44); MEAN CORPUSCULAR HEMOGLOBIN 31 PG (25-34); MEAN CORPUSCULAR HGB CONC 33 G/DL (32-36); MEAN CORPUSCULAR VOLUME 92 FL (80-99); MEAN PLATELET VOLUME 9.5 FL (7.4-10.4); MONOCYTES # (AUTO) 0.3 X 10^3 (0.0-1.0); MONOCYTES % (AUTO) 2 % (0-12); NEUTROPHILS # (AUTO) 11.4 X 10^3 (1.8-7.8); NEUTROPHILS % (AUTO) 94 % (42-75); PLATELET COUNT 352 10^3/uL (130-400); RED CELL DISTRIBUTION WIDTH 15.4 % (10.0-14.5); WHITE BLOOD COUNT 12.1 10^3/uL (4.3-11.0)
[2019-09-12 15:56] LABS: INR 0.9 (0.8-1.4); PROTHROMBIN TIME PATIENT 12.5 SEC (12.2-14.7)
[2019-09-12 16:02] LABS: ALANINE AMINOTRANSFERASE 18 U/L (0-55); ALBUMIN 3.6 GM/DL (3.2-4.5); ALKALINE PHOSPHATASE 57 U/L (40-136); BILIRUBIN,TOTAL 0.3 MG/DL (0.1-1.0); BUN/CREATININE RATIO 29; CALCIUM 8.3 MG/DL (8.5-10.1); CARBON DIOXIDE 28 MMOL/L (21-32); CHLORIDE 94 MMOL/L (98-107); CREATININE SERUM 0.78 MG/DL (0.60-1.30); GFR ESTIMATED > 60; GLUCOSE 144 MG/DL (70-105); MAGNESIUM 1.8 MG/DL (1.6-2.4); SODIUM 131 MMOL/L (135-145); TOTAL PROTEIN 6.1 GM/DL (6.4-8.2)
--- NOTE | 2019-09-12 16:09 | Diagnostic Imaging Report ---
Procedure: Chest 1 view, AP/PA only. Indication: Cough. Comparison: 09/09/2019. Findings: Previously noted nodular opacity in the left upper lung zone is no longer seen. No new airspace opacities. No pleural effusion or pneumothorax. Stable borderline enlargement of cardiac silhouette. Impression: 1. Left upper lobe nodular opacity has resolved and this could be due to resolution of an infectious process versus this being due to summation shadow. 2. No new abnormality. Dictated by: Dictated on workstation # [id number]
[2019-09-12] MEDS ORDERED: HOLD METFORMIN - RECEIVED CONTRAST 20 ML VIAL IV SCH (16:15)
[2019-09-12] MEDS ORDERED: IOHEXOL 350 MG/ML 100 ML (OMNIPAQUE 350) VIAL IV ONE (16:15)
[2019-09-12] MEDS ORDERED: CATHETER FLUSH 10 ML SYR IV PRN ×2 (16:15→21:00)
[2019-09-12] MEDS ORDERED: NS 100 ML (IVPB) BAG IV ONE (16:15)
[2019-09-12 16:43] LABS: NEUTROPHILS % (MANUAL) 93 %
[2019-09-12 16:44] LABS: LYMPHOCYTES % (MANUAL) 5 %; MONOCYTES % (MANUAL) 2 %; RBC MORPH NORMAL
[2019-09-12 16:57] LABS: BILIRUBIN,URINE NEGATIVE (NEGATIVE); CLARITY,URINE CLEAR; COLOR,URINE YELLOW; GLUCOSE, URINE (UA) NEGATIVE (NEGATIVE); KETONES,URINE NEGATIVE (NEGATIVE); LEUKOCYTE ESTERASE ,URINE NEGATIVE (NEGATIVE); NITRITE,URINE NEGATIVE (NEGATIVE); PH,URINE 7.5 (5-9); PROTEIN,URINE NEGATIVE (NEGATIVE)
--- NOTE | 2019-09-12 16:58 | Diagnostic Imaging Report ---
PROCEDURE: CT angiography of the chest with contrast. TECHNIQUE: Multiple contiguous axial images were obtained through the chest after uneventful bolus administration of intravenous contrast. 3D reconstructed CTA MIP acquisitions were also performed. Auto Exposure Controls were utilized during the CT exam to meet ALARA standards for radiation dose reduction. INDICATION: Cough. The recent CT chest exam performed on 09/08/2019 noted a faint groundglass density in the left upper lobe and raised the question of an early neoplastic process. That finding is again evident and does not appear to have changed significantly (image 25 of 168). The emphysematous changes involving both lungs seen on the prior study are also again noted and no different. There is still no sign of failure, pneumonia or pleural effusion to indicate an acute abnormality. There is no defect within the pulmonary arteries to indicate a pulmonary embolus. The aorta is not abnormally dilated and there is no sign of a dissection. The heart size is stable. Coronary artery calcifications are again noted. There is no mediastinal or hilar adenopathy. The thyroid gland were visualized is unremarkable. There is no obvious breast mass. The sections through the upper abdomen failed to show any sign of an acute abnormality. The compression deformities involving the mid and lower thoracic spine seen previously are unchanged. IMPRESSION: 1. There is no evidence for an acute cardiopulmonary abnormality. In particular, there is no sign of pulmonary embolus or of a dissection. 2. The small area of altered density within the left upper lung seen previously is again evident. This finding could be secondary to scar formation. The possibility that there is an early neoplastic process in this area should still be considered. I would concur with the recommendation of the previous exam that a short-term (3 month) follow-up CT chest exam be obtained for further study. Dictated by: Dictated on workstation # [id number]
[2019-09-12 17:24] LABS: AMPHETAMINE SCREEN, URINE NEGATIVE (NEGATIVE); BARBITURATE SCREEN URINE NEGATIVE (NEGATIVE); BENZODIAZEPINES SCREEN URINE POSITIVE (NEGATIVE); CANNABINOID SCREEN, URINE NEGATIVE (NEGATIVE); COCAINE SCREEN URINE NEGATIVE (NEGATIVE); METHADONE STAT NEGATIVE (NEGATIVE); METHAMPHETAMINE SCREEN URINE S NEGATIVE (NEGATIVE); OPIATE SCREEN URINE POSITIVE (NEGATIVE); OXYCODONE STAT NEGATIVE (NEGATIVE); PROPOXYPHENE STAT NEGATIVE (NEGATIVE); TRICYCLIC ANTIDEPRESSANTS SCRE NEGATIVE (NEGATIVE)
[2019-09-12 17:34] LABS: BACTERIA,URINE NEGATIVE /HPF; SQUAMOUS EPITHELIAL CELL,UR 0-2 /HPF
[2019-09-12 17:35] LABS: AMORPHOUS SEDIMENT,UR FEW AMOR URATES /LPF
[2019-09-12] MEDS ORDERED: NITROGLYCERIN 0.4 MG SL TABS BTL 25'S SL PRN (21:00)
[2019-09-12] MEDS ORDERED: morphine INJ 4 MG/ML 1 ML (VIAL/SYRINGE) IV PRN (21:00)
[2019-09-12] MEDS: meTOprolol TARTRATE 50 MG (LOPRESSOR) TAB PO SCH (21:07)
[2019-09-12] MEDS: CATHETER FLUSH 10 ML SYR IV SCH (21:13)
[2019-09-12] MEDS: NS IV 1000 ML 1,000 ML IV SCH (21:13)
[2019-09-12] MEDS: ALPRAZolam 0.5 MG (XANAX) TAB PO PRN (21:14)
[2019-09-12] MEDS: HYDROcodone/APAP 5 MG/325 MG (LORTAB) TAB PO PRN (21:14)
[2019-09-12] MEDS: GABAPENTIN 600 MG (NEURONTIN) TAB PO SCH (22:30)
[2019-09-12] MEDS ORDERED: GABAPENTIN 600 MG (NEURONTIN) TAB ONE (22:30)
[2019-09-13 00:34] VITALS: BP 108/66
[2019-09-13 01:25] LABS: BASOPHILS % (AUTO) 0 % (0-10); EOSINOPHILS % (AUTO) 0 % (0-10); HEMATOCRIT 31 % (35-52); LYMPHOCYTES # (AUTO) 0.9 X 10^3 (1.0-4.0); LYMPHOCYTES % (AUTO) 10 % (12-44); MEAN CORPUSCULAR HEMOGLOBIN 30 PG (25-34); MEAN CORPUSCULAR HGB CONC 33 G/DL (32-36); MEAN CORPUSCULAR VOLUME 93 FL (80-99); MEAN PLATELET VOLUME 9.5 FL (7.4-10.4); MONOCYTES # (AUTO) 0.7 X 10^3 (0.0-1.0); MONOCYTES % (AUTO) 7 % (0-12); NEUTROPHILS % (AUTO) 83 % (42-75); PLATELET COUNT 304 10^3/uL (130-400); RED CELL DISTRIBUTION WIDTH 15.5 % (10.0-14.5); WHITE BLOOD COUNT 9.6 10^3/uL (4.3-11.0)
[2019-09-13 01:48] LABS: ALANINE AMINOTRANSFERASE 14 U/L (0-55); ALBUMIN 3.1 GM/DL (3.2-4.5); ALKALINE PHOSPHATASE 48 U/L (40-136); BILIRUBIN,TOTAL 0.3 MG/DL (0.1-1.0); BUN/CREATININE RATIO 25; CALCIUM 7.5 MG/DL (8.5-10.1); CARBON DIOXIDE 24 MMOL/L (21-32); CHLORIDE 98 MMOL/L (98-107); CREATININE SERUM 0.59 MG/DL (0.60-1.30); GFR ESTIMATED > 60; GLUCOSE 89 MG/DL (70-105); POTASSIUM 4.5 MMOL/L (3.6-5.0); SODIUM 131 MMOL/L (135-145); TOTAL PROTEIN 5.3 GM/DL (6.4-8.2)
[2019-09-13 03:50] VITALS: BP 159/63
[2019-09-13] MEDS: CATHETER FLUSH 10 ML SYR IV SCH (06:20)
[2019-09-13] MEDS: NS IV 1000 ML 1,000 ML IV SCH (06:56)
[2019-09-13 08:00] VITALS: BP 118/73
[2019-09-13 08:05] LABS: CHOLESTEROL 157 MG/DL (< 200); HDL CHOLESTEROL 68 MG/DL (40-60); TRIGLYCERIDES 115 MG/DL (<150); VLDL CHOLESTEROL 23 MG/DL (5-40)
[2019-09-13] MEDS ORDERED: CLOPIDOGREL 75 MG (PLAVIX) TABLET PO SCH (09:00)
[2019-09-13] MEDS ORDERED: ASPIRIN E.C. 81 MG (ECOTRIN) TAB PO SCH (09:00)
[2019-09-13] MEDS ORDERED: lisINopril 10 MG (PRINIVIL) TABLET PO SCH (09:00)
[2019-09-13] MEDS: ALPRAZolam 0.5 MG (XANAX) TAB PO PRN (09:17)
[2019-09-13] MEDS: GABAPENTIN 600 MG (NEURONTIN) TAB PO SCH ×2 (09:17→13:12)
[2019-09-13] MEDS: meTOprolol TARTRATE 50 MG (LOPRESSOR) TAB PO SCH (09:17)
[2019-09-13] MEDS: HYDROcodone/APAP 5 MG/325 MG (LORTAB) TAB PO PRN (09:18)
[2019-09-13 10:05] VITALS: BP 114/70
[2019-09-13] MEDS ORDERED: NON-FORMULARY MEDICATION 1 EA EA (Hydrocodone/Acetaminophen (Hydrocodone-Acetamin 5-325 mg PO PRN (10:45)
[2019-09-13] MEDS ORDERED: ALPRAZolam 0.5 MG (XANAX) TAB PO PRN (10:45)
[2019-09-13] MEDS ORDERED: RT-ALBUTEROL SULF 2.5 MG/3 ML PRE-MIX VIAL INH PRN (10:45)
[2019-09-13] MEDS ORDERED: NITROGLYCERIN 0.4 MG SL TABS BTL 25'S SL PRN (10:45)
[2019-09-13] MEDS ORDERED: KCL 10 MEQ TAB (MICRO K) PO SCH (11:00)
--- NOTE | 2019-09-13 12:25 | History & Physical-Hospitalist ---
History of Present Illness HPI/Chief Complaint This is a 69-year-old white female who appears older than her stated age. She was a admitted through the emergency room after she presented with complaints of chest pain for which she had taken 6 nitroglycerin over the course of about 4 hours. She was found to be hypotensive. Troponin was low positive and she was admitted for further evaluation. At the time of my interview this morning she is pain-free and notes that she had been scheduled for a stress test with Dr. Brooke anyway in the next week or 2. She notes that she has had a radical heart for some time and often requires nitroglycerin for chest pain at home. Source: patient Exam Limitations: no limitations Date Seen 09/13/19 Time Seen by a Provider: 11:45 Attending Physician Milli Mo MD PCP Sebastian Snyder MD Referring Physician Date of Admission Sep 12, 2019 at 17:11 Home Medications & Allergies Home Medications Reviewed patient Home Medication Reconciliation performed by pharmacy medication reconciliations environmental technician and/or nursing. Patients Allergies have been reviewed. 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 Smoking Status: Current Everyday Smoker Type Used: Cigars, Cigarettes 2nd Hand Smoke Exposure: Yes Recent Foreign Travel: No Contact w/other who traveled: No Recent Hopitalizations: No Recent Infectious Disease Expo: No Immunizations Up To Date Tetanus Booster (TDap): Unknown Date of Pneumonia Vaccine: Dec 05, 2018 Date of Influenza Vaccine: Aug 04, 2019 Seasonal Allergies Seasonal Allergies: No Past Medical History Surgeries: Cardiac, Coronary Stent, Hysterectomy, Orthopedic Currently Using CPAP: No Currently Using BIPAP: No Cardiac: Angina, Chronic Edema/Swelling, Coronary Artery Disease, Heart Attack, Heart Murmur, High Cholesterol, Hypertension, Peripheral Vascular, Valvular Heart Disease Neurological: Neuropathy, Traumatic Brain Injury Reproductive: No Sexually Transmitted Disease: No HIV/AIDS: No Female Reproductive Disorders: Denies Hysterectomy, Menopausal Gastrointestinal: Colitis, Gastroesophageal Reflux, Crohns Disease, Ulcer Musculoskeletal: Arthritis, Chronic Back Pain, Fractures Loss of Vision: Right Hearing Impairment: Denies Cancer: Skin, Ovarian Did You Recieve Any Treatments: Yes What Type of Treatment Did You: Surgical Intervention Psychosocial: Sleep Difficulties, Anxiety, PTSD, Bipolar, Depression History of 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) Family History Aortic valve disorder 19 MOTHER Cardiovascular disease 19 MOTHER FH: breast cancer G8 SISTER FH: prostate cancer 19 FATHER Myasthenia gravis G8 SISTER Psychosocial problem G8 SISTER No Pertinent Family Hx Review of Systems Constitutional: see HPI, weight loss EENTM: no symptoms reported Respiratory: dyspnea on exertion, short of breath Cardiovascular: chest pain Gastrointestinal: no symptoms reported Genitourinary: no symptoms reported Musculoskeletal: back pain Skin: see HPI Psychiatric/Neurological: See HPI Physical Exam Physical Exam Vital Signs Vital Signs - First Documented 09/12/19 15:20 Temp 37.0 Pulse 99 Resp 23 B/P (MAP) 92/57 (69) Capillary Refill : Less Than 3 Seconds Height, Weight, BMI Height: 5'0" Weight: 90lbs. 7.0oz. 41.711903gj; 119.42 BMI Method:Stated General Appearance: Chronically ill HEENT: Normal ENT Inspection Neck: Full Range of Motion, Non Tender, Supple Respiratory: Chest Non Tender, Lungs Clear, Normal Breath Sounds, No Respiratory Distress Cardiovascular: Regular Rate, Rhythm, No Edema, Normal Peripheral Pulses, Systolic Murmur Gastrointestinal: Normal Bowel Sounds, Non Tender, Soft Rectal: Deferred Back: Normal Inspection, No CVA Tenderness, No Vertebral Tenderness Extremity: Normal Inspection, Non Tender, No Calf Tenderness Neurologic/Psychiatric: Alert, Oriented x3, No Motor/Sensory Deficits, Normal Mood/Affect Skin: Normal Color, Warm/Dry Results Results/Procedures Labs Laboratory Tests 09/12/19 15:28 09/13/19 01:16 Patient resulted labs reviewed. Imaging: Reviewed Imaging Report Assessment/Plan Admission Diagnosis Chest pain with a positive troponin Left upper lobe pulmonary abnormality that needs follow-up this was discussed in the presence of the patient and the sister leg knowledge that this will need a 3 month follow-up Coronary artery disease Cachexia tobaccoism Osteoporosis Scoliosis Poor functional status Plan to consult cardiology risk stratification with inpatient or outpatient stress test or heart catheter Admission Status: Observation Clinical Quality Measures DVT/VTE Risk/Contraindication: Risk Factor Score Per Nursin RFS Level Per Nursing on Admit: 4+=Very High Copy Copies To 1: SEBASTIAN SNYDER MD, KATHLEEN M MD Sep 13, 2019 12:25 POS
[2019-09-13] MEDS ORDERED: GABAPENTIN 600 MG (NEURONTIN) TAB PO SCH (13:00)
[2019-09-13] MEDS ORDERED: RT-ALBUTEROL/IPRATROPIUM 3 ML (DUONEB) VIAL INH SCH (14:00)
--- NOTE | 2019-09-13 14:38 | Consultation-Cardiology ---
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 Chest discomfort: L parasternal, sharp, waxing and waning for several hours before resolution last night, mod in intensity at its worst, w/o radiation, w/o aggravating or relieving factors, associated worsening of chronic shortness of breath, not experienced before, multiple nitroglycerin tabs at home prior to presentation yesterday did not relieve pain but did result in low bp that gradually recovered. Feels well currently and wishes to go home. Denies cp or palp or syncope or leg swelling Review of Systems-Cardiology Review of Systems Constitutional: malaise, tiredness; No weight loss, No weight gain Eyes: No vision change Ears/Nose/Throat: No ear discharge, No nasal drainage, No recent hearing loss Respiratory: As described under HPI Cardiovascular: As described under HPI Gastrointestinal: No diarrhea, No vomiting Genitourinary: No dysuria, No hematuria, No urine frequency changes Musculoskeletal: back pain (chronic) Skin: No rash, No ulcerations Psychiatric/Neurological: No seizure, No focal weakness, No syncope Hematologic: No bleeding abnormalities QPL-[id number]-[id number] Hx Patient Social History Marrital Status: Employed/Student: retired Alcohol Use: Denies Use Recreational Drug Use: No 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 Family Medical History Family History: Aortic valve disorder 19 MOTHER Cardiovascular disease 19 MOTHER FH: breast cancer G8 SISTER FH: prostate cancer 19 FATHER Myasthenia gravis G8 SISTER Psychosocial problem G8 SISTER Allergies and Home Medications Allergies Coded Allergies: oxymorphone (Verified Allergy, Unknown, Pt takes Morphine ER at home, 09/02/19) varenicline (Verified Allergy, Unknown, 09/02/19) Uncoded Allergies: PEANUTS (Allergy, Unknown, 03/24/19) Home Medications Acetaminophen 500 Mg Tablet, 1,000 MG PO Q4H PRN for PAIN-MILD, (Reported) Albuterol Sulfate 18 Gm Hfa.aer.ad, 2 PUFF INH Q6H PRN for SHORTNESS OF BREATH, (Reported) Alprazolam 0.5 Mg Tablet, 0.5 MG PO TID PRN for ANXIETY Prescribed by: SINDY GALE on 09/09/19 113 Amlodipine Besylate 5 Mg Tablet, 5 MG PO DAILY Prescribed by: SINDY GALE on 09/09/19 113 Aspirin 325 Mg Tablet.dr, 325 MG PO DAILY, (Reported) Atorvastatin Calcium 40 Mg Tablet, 40 MG PO HS, (Reported) Budesonide 0.5 Mg/2 Ml Ampul.neb, 0.5 MG INH RTBID Prescribed by: SINDY GALE on 09/09/19 113 Clopidogrel Bisulfate 75 Mg Tablet, 75 MG PO DAILY, (Reported) Fluticasone/Salmeterol 1 Each Blst.w.dev, 1 EACH IH BID Prescribed by: SINDY GALE on 09/09/19 113 Furosemide 40 Mg Tablet, 40 MG PO Q48H Prescribed by: SINDY GALE on 09/09/19 113 Gabapentin 600 Mg Tablet, 600 MG PO TID Prescribed by: SINDY GALE on 09/09/19 113 Hydrocodone/Acetaminophen 1 Each Tablet, 1 TAB PO TID PRN for PAIN-MODERATE Prescribed by: SINDY GALE on 09/09/19 113 Ipratropium/Albuterol Sulfate 3 Ml Ampul.neb, 3 ML INH RTQ4HR Prescribed by: SINDY GALE on 09/09/19 113 Lisinopril 10 Mg Tablet, 10 MG PO DAILY, (Reported) LAST FILLED #30 07-20-19 Metoprolol Tartrate 50 Mg Tablet, 50 MG PO BID, (Reported) LAST FILLED #180 04-21-19 Nitroglycerin 0.4 Mg Tab.subl, 0.4 MG SL UD PRN for CHEST PAIN, (Reported) Ondansetron 4 Mg Tab.rapdis, 4 MG PO Q8H PRN for NAUSEA/VOMITING-1ST LINE, (Reported) Paroxetine HCl 20 Mg Tablet, 20 MG PO DAILY, (Reported) Potassium Chloride 10 Meq Capsule.er, 10 MEQ PO Q48H Prescribed by: SINDY GALE on 09/09/19 113 Prednisone 10 Mg Tab.ds.pk, 40 MG PO DAILY Prescribed by: SINDY GALE on 09/09/19 1133 Spironolactone 100 Mg Tablet, 100 MG PO DAILY Prescribed by: SINDY GALE on 09/09/19 113 Patient Home Medication List Home Medication List Reviewed: Yes Physical Exam-Cardiology Physical Exam Vital Signs/I&O 09/13/19 09/13/19 09/13/19 09/13/19 03:20 03:50 07:00 08:00 Temp 36.6 Pulse 71 87 Resp 14 B/P (MAP) 159/63 (95) Pulse Ox 98 95 O2 Delivery Nasal Cannula Nasal Cannula Nasal Cannula O2 Flow Rate 2.00 2.00 2.00 09/13/19 09/13/19 09/13/19 09/13/19 08:00 08:00 10:05 12:00 Temp 36.7 37.4 Pulse 99 68 Resp 20 18 B/P (MAP) 118/73 (88) 114/70 (85) Pulse Ox 94 96 O2 Delivery Nasal Cannula Nasal Cannula Nasal Cannula O2 Flow Rate 2.00 2.00 2.00 09/13/19 13:00 Pulse 74 09/13/19 00:00 Intake Total 1750 ml Output Total 200 ml Balance 1550 ml Capillary Refill : Less Than 3 Seconds Constitutional: AAO x 3, well-developed, other (thin appearing) HEENT: PERRL, EOMI; No xanthelasmas are seen Neck: carotid pulses are 2 + bilaterally, with good upstrokes Respiratory: No accessory muscle use; other (diminished but fair bilateral air entry with prolonged exp phase) Cardiovascular: regular rate-rhythm, S1 and S2, systolic murmur (soft MAMTA at card base) Gastrointestinal: No tender; soft; No guarding, No rebound; audible bowel sounds Extremities: No clubbing, No cyanosis, No significant edema Neurologic/Psychiatric: oriented x 3, other (moves all limbs equally; able to walk w/o support) Skin: No rash on exposed areas, No ulcerations on exposed areas Data Review Labs Laboratory Tests 09/12/19 15:28: White Blood Count 12.1H, Red Blood Count 3.92L, Hemoglobin 12.1, Hematocrit 36, Mean Corpuscular Volume 92, Mean Corpuscular Hemoglobin 31, Mean Corpuscular Hemoglobin Concent 33, Red Cell Distribution Width 15.4H, Platelet Count 352, Mean Platelet Volume 9.5, Neutrophils (%) (Auto) 94H, Lymphocytes (%) (Auto) 4L, Monocytes (%) (Auto) 2, Eosinophils (%) (Auto) 0, Basophils (%) (Auto) 0, Neutrophils # (Auto) 11.4H, Lymphocytes # (Auto) 0.4L, Monocytes # (Auto) 0.3, Eosinophils # (Auto) 0.0, Basophils # (Auto) 0.0, Neutrophils % (Manual) 93, Lymphocytes % (Manual) 5, Monocytes % (Manual) 2, Blood Morphology Comment NORMAL, Prothrombin Time 12.5, INR Comment 0.9, Activated Partial Thromboplast Time 23L, Sodium Level 131L, Potassium Level 5.0, Chloride Level 94L, Carbon Dioxide Level 28, Anion Gap 9, Blood Urea Nitrogen 23H, Creatinine 0.78, Estimat Glomerular Filtration Rate > 60, BUN/Creatinine Ratio 29, Glucose Level 144H, Calcium Level 8.3L, Corrected Calcium 8.6, Magnesium Level 1.8, Total Bilirubin 0.3, Aspartate Amino Transf (AST/SGOT) 23, Alanine Aminotransferase (ALT/SGPT) 18, Alkaline Phosphatase 57, Myoglobin 85.0, Troponin I 0.036H, B-Type Natriuretic Peptide 386.8H, Total Protein 6.1L, Albumin 3.6 09/12/19 16:40: Urine Color YELLOW, Urine Clarity CLEAR, Urine pH 7.5, Urine Specific [place] 1.010L, Urine Protein NEGATIVE, Urine Glucose (UA) NEGATIVE, Urine Ketones NEGATIVE, Urine Nitrite NEGATIVE, Urine Bilirubin NEGATIVE, Urine Urobilinogen 0.2, Urine Leukocyte Esterase NEGATIVE, Urine RBC (Auto) NEGATIVE, Urine RBC NONE, Urine WBC NONE, Urine Squamous Epithelial Cells 0-2, Urine Crystals PRESENTH, Urine Amorphous Sediment FEW TOAN URATESH, Urine Bacteria NEGATIVE, Urine Casts NONE, Urine Mucus NEGATIVE, Urine Culture Indicated NO, Urine Opiates Screen POSITIVEH, Urine Oxycodone Screen NEGATIVE, Urine Methadone Screen NEGATIVE, Urine Propoxyphene Screen NEGATIVE, Urine Barbiturates Screen NEGATIVE, Ur Tricyclic Antidepressants Screen NEGATIVE, Urine Phencyclidine Sc reen NEGATIVE, Urine Amphetamines Screen NEGATIVE, Urine Methamphetamines Screen NEGATIVE, Urine Benzodiazepines Screen POSITIVEH, Urine Cocaine Screen NEGATIVE, Urine Cannabinoids Screen NEGATIVE 09/12/19 19:22: Troponin I 0.036H 09/13/19 01:16: White Blood Count 9.6, Red Blood Count 3.30L, Hemoglobin 10.0L, Hematocrit 31L, Mean Corpuscular Volume 93, Mean Corpuscular Hemoglobin 30, Mean Corpuscular Hemoglobin Concent 33, Red Cell Distribution Width 15.5H, Platelet Count 304, Mean Platelet Volume 9.5, Neutrophils (%) (Auto) 83H, Lymphocytes (%) (Auto) 10L , Monocytes (%) (Auto) 7, Eosinophils (%) (Auto) 0, Basophils (%) (Auto) 0, Neutrophils # (Auto) 8.0H, Lymphocytes # (Auto) 0.9L, Monocytes # (Auto) 0.7, Eosinophils # (Auto) 0.0, Basophils # (Auto) 0.0, Sodium Level 131L, Potassium Level 4.5, Chloride Level 98, Carbon Dioxide Level 24, Anion Gap 9, Blood Urea Nitrogen 15, Creatinine 0.59L, Estimat Glomerular Filtration Rate > 60, BU N/Creatinine Ratio 25, Glucose Level 89, Calcium Level 7.5L, Corrected Calcium 8.2L, Total Bilirubin 0.3, Aspartate Amino Transf (AST/SGOT) 19, Alanine Aminot ransferase (ALT/SGPT) 14, Alkaline Phosphatase 48, Troponin I < 0.028, Total Protein 5.3L, Albumin 3.1L 09/13/19 06:00: Triglycerides Level 115, Cholesterol Level 157, LDL Cholesterol Direct 67, VLDL Cholesterol 23, HDL Cholesterol 68H 09/13/19 07:32: Troponin I 0.031H Laboratory Tests 09/12/19 15:28 09/13/19 01:16 A/P-Cardiology Assessment/Admission Diagnosis Chest pain, nonspecific, no clinical evidence of ACS Troponin during this admission: 0.036, 0.036, <0.028, 0.031. This is suggestive of minimal type 2 GA due to intermittent hypoxemia due to advanced COPD Chronically abnormal ECG due to anteroapical infarction with akinesis/aneurysm: QS pattern in anterolateral leads with permanent ST elevation. Unchanged during this hospitalization Echo of 09/03/19: LVEF 50%, apical akinesis, mild MR, RVSP 25 mmHg Card cath Nov 2017 (Dr Brooke): moderate diffuse disease in the RCA with negative FFR, patent stent in the LAD with no other significant disease, occluded stent in the distal left circumflex artery (PCI attempt unsucessful) Advanced COPD and h/o hypoxemia Low BMI Chronic tobacco use: smokes cigs Discussion and Recomendations * Advised to quit smoking * Advised compliance with DAPT, bb, statin * Advised outpt f/u with Dr Brooke * Advised to ER if symptoms recur or if new symptoms * Questions answered in detail Clinical Quality Measures DVT/VTE Risk/Contraindication: Risk Factor Score Per Nursin RFS Level Per Nursing on Admit: 4+=Very High ALISON SCHULTZ MD FACP FAC CCDS Sep 13, 2019 14:38 POS
[2019-09-13] MEDS ORDERED: RT-ADVAIR HFA 115/21 MCG PER PUFF IH SCH (20:00)
[2019-09-13] MEDS ORDERED: meTOprolol TARTRATE 50 MG (LOPRESSOR) TAB PO SCH (21:00)
[2019-09-13] MEDS ORDERED: RT-BUDESONIDE NEBS 0.5 MG/2ML (PULMICORT) AMP INH SCH (21:00)
[2019-09-14] MEDS ORDERED: predniSONE 20 MG TAB PO SCH (07:00)
[2019-09-14] MEDS ORDERED: CLOPIDOGREL 75 MG (PLAVIX) TABLET PO SCH (09:00)
[2019-09-14] MEDS ORDERED: PARoxetine 20 MG (PAXIL) TAB PO SCH (09:00)
[2019-09-14] MEDS ORDERED: ASPIRIN E.C. 325 MG (ECOTRIN) TABLET PO SCH (09:00)
[2019-09-14] MEDS ORDERED: SPIRONOLACTONE 100 MG (ALDACTONE) TABLET PO SCH (09:00)
[2019-09-14] MEDS ORDERED: amLODIPine 5 MG (NORVASC) TAB PO SCH (09:00)
[2019-09-14] MEDS ORDERED: lisINopril 10 MG (PRINIVIL) TABLET PO SCH (09:00)
== END 2019-09-13 14:23 | disposition home or self-care (01) ==
LOC: EDUNIT# 15:18 → ER 15:19 → CSD 17:11 → UNDOADMOB 17:11 → CSD 18:50 → UNDODISOB 09-13 14:45
PROVIDERS: ADMIT Internal Medicine; ATTEND Internal Medicine
DX: R07.9 Chest pain, unspecified (principal); F17.210 Nicotine dependence, cigarettes, uncomplicated; E78.00 Pure hypercholesterolemia, unspecified; R60.9 Edema, unspecified; I25.10 Atherosclerotic heart disease of native coronary artery without angina pectoris; I11.0 Hypertensive heart disease with heart failure; I50.9 Heart failure, unspecified; I73.9 Peripheral vascular disease, unspecified; K52.9 Noninfective gastroenteritis and colitis, unspecified; K21.9 Gastro-esophageal reflux disease without esophagitis; K50.90 Crohn's disease, unspecified, without complications; M19.90 Unspecified osteoarthritis, unspecified site; G89.29 Other chronic pain; M54.9 Dorsalgia, unspecified; F41.9 Anxiety disorder, unspecified; F43.10 Post-traumatic stress disorder, unspecified; F32.9 Major depressive disorder, single episode, unspecified; Z88.5 Allergy status to narcotic agent; Z91.010 Allergy to peanuts; Z95.5 Presence of coronary angioplasty implant and graft; Z90.710 Acquired absence of both cervix and uterus; Z85.43 Personal history of malignant neoplasm of ovary; Z85.828 Personal history of other malignant neoplasm of skin; Z80.3 Family history of malignant neoplasm of breast; Z80.42 Family history of malignant neoplasm of prostate
CPT/HCPCS: 36415; 71045; 71275; 80053; 80061; 80306; 81000; 83735; 83874; 83880; 84484; 85007; 85025; 85027; 85610; 85730; 93005; 93041; 96360

== ENCOUNTER 2019-11-10 15:52 | Emergency (ER) | payer MEDICARE, MEDICAID ==
[~2019-11-10] VITALS: Ht 152.4 cm; Wt 40.9 kg
--- NOTE | 2019-11-10 16:54 | ED Integumentary General ---
General Chief Complaint: General Problems/Pain Stated Complaint: PAIN Nursing Triage Note: PT TO RM 9 BY WHEELCHAIR WITH COMPLAINT OF RASH ON BACK AND CHEST. STATES IT IS PAINFUL AND BURNING. STATES STARTED AFTER SHE FELL TWO WEEKS AGO. Source: patient, family Exam Limitations: no limitations History of Present Illness Date Seen by Provider: Nov 10, 2019 Time Seen by Provider: 16:02 Initial Comments Patient presents to ER by private conveyance with family and chief complaint that for the past day she's noticed some red rash on her skin around the level of her right posterior flank at the level of her scapula that is painful to light touch. She recently got out of rehabilitation for right hip fracture and has noticed some increased swelling in her right foot and uses elevation but says he gets better when she is up walking around on it. She's not had any falls. She's not having any fevers chills confusion. She does have nausea and she's been using Zofran 4 mg which only last for about an hour to an she's been told only took it once every 8 hours. She uses gabapentin 300 mg 3 times a day for neuropathic pain. She says the pain is been bad enough to have her in tears today. She rates it moderate to severe presently. She's not using any topical creams. She had chickenpox as a child. Never had shingles before. Allergies and Home Medications Allergies Coded Allergies: oxymorphone (Verified Allergy, Unknown, Pt takes Morphine ER at home, 09/02/19) varenicline (Verified Allergy, Unknown, 09/02/19) Uncoded Allergies: PEANUTS (Allergy, Unknown, 03/24/19) Home Medications Acetaminophen 500 Mg Tablet, 1,000 MG PO Q4H PRN for PAIN-MILD, (Reported) Albuterol Sulfate 18 Gm Hfa.aer.ad, 2 PUFF INH Q6H PRN for SHORTNESS OF BREATH, (Reported) Alprazolam 0.5 Mg Tablet, 0.5 MG PO TID PRN for ANXIETY Prescribed by: SINDY GALE on 09/09/19 113 Amlodipine Besylate 5 Mg Tablet, 5 MG PO DAILY Prescribed by: SINDY GALE on 09/09/19 1133 Aspirin 325 Mg Tablet.dr, 325 MG PO DAILY, (Reported) Atorvastatin Calcium 40 Mg Tablet, 40 MG PO HS, (Reported) Budesonide 0.5 Mg/2 Ml Ampul.neb, 0.5 MG INH RTBID Prescribed by: SINDY GALE on 09/09/191132 Clopidogrel Bisulfate 75 Mg Tablet, 75 MG PO DAILY, (Reported) Fluticasone/Salmeterol 1 Each Blst.w.dev, 1 EACH IH BID Prescribed by: SINDY GALE on 09/09/191132 Furosemide 40 Mg Tablet, 40 MG PO Q48H Prescribed by: SINDY GALE on 09/09/191132 Gabapentin 600 Mg Tablet, 600 MG PO TID Prescribed by: SINDY GALE on 09/09/191132 Hydrocodone/Acetaminophen 1 Each Tablet, 1 TAB PO TID PRN for PAIN-MODERATE Prescribed by: SINDY GALE on 09/09/191132 Ipratropium/Albuterol Sulfate 3 Ml Ampul.neb, 3 ML INH RTQ4HR Prescribed by: SINDY GALE on 09/09/191132 Lisinopril 10 Mg Tablet, 10 MG PO DAILY, (Reported) LAST FILLED #30 07-20-19 Metoprolol Tartrate 50 Mg Tablet, 50 MG PO BID, (Reported) LAST FILLED #180 04-21-19 Nitroglycerin 0.4 Mg Tab.subl, 0.4 MG SL UD PRN for CHEST PAIN, (Reported) Ondansetron 4 Mg Tab.rapdis, 4 MG PO Q8H PRN for NAUSEA/VOMITING-1ST LINE, (Reported) Paroxetine HCl 20 Mg Tablet, 20 MG PO DAILY, (Reported) Potassium Chloride 10 Meq Capsule.er, 10 MEQ PO Q48H Prescribed by: SINDY GALE on 09/09/191132 Prednisone 10 Mg Tab.ds.pk, 40 MG PO DAILY Prescribed by: SINDY GALE on 09/09/191132 Spironolactone 100 Mg Tablet, 100 MG PO DAILY Prescribed by: SINDY GALE on 09/09/191132 Patient Home Medication List Home Medication List Reviewed: Yes Review of Systems Review of Systems Constitutional: No chills, No diaphoresis EENTM: No ear discharge, No ear pain Respiratory: No cough, No short of breath Cardiovascular: No chest pain, No edema Gastrointestinal: No abdominal pain, No constipation, No diarrhea, No nausea Genitourinary: No discharge, No dysuria : No Musculoskeletal: No back pain; joint pain (chronic) Skin: pruritus, rash All Other Systems Reviewed Negative Unless Noted: Yes Past Xhedray-Nlopik-Nysljf Hx Patient Social History Alcohol Use: Denies Use Recreational Drug Use: Yes 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 Smoking Status: Current Everyday Smoker Type Used: Cigars, Cigarettes 2nd Hand Smoke Exposure: Yes Recent Foreign Travel: No Contact w/Someone Who Travel: No Recent Infectious Disease Expo: No Recent Hopitalizations: No Physical Abuse: No Sexual Abuse: No Mistreated: No Fear: No Immunizations Up To Date Tetanus Booster (TDap): Unknown Date of Pneumonia Vaccine: Dec 05, 2018 Date of Influenza Vaccine: Aug 04, 2019 Seasonal Allergies Seasonal Allergies: No Past Medical History Surgeries: Yes Cardiac, Coronary Stent, Hysterectomy, Orthopedic Respiratory: Yes (SMOKED 1/2 PPD SINCE AGE 9; O2 AT 2L/NC CONTINUOUSLY) Asthma, COPD Currently Using CPAP: No Currently Using BIPAP: No Cardiac: Yes Angina, Chronic Edema/Swelling, Coronary Artery Disease, Heart Attack, Heart Murmur, High Cholesterol, Hypertension, Peripheral Vascular, Valvular Heart Disease Neurological: Yes Neuropathy, Traumatic Brain Injury Reproductive Disorders: No Female Reproductive Disorders: Denies [employer] MARKING History: Hysterectomy, Menopausal Sexually Transmitted Disease: No HIV/AIDS: No Genitourinary: No Gastrointestinal: Yes (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, WITH QUESTIONABLE SMALL BOWEL RESECTION; ) Colitis, Gastroesophageal Reflux, Crohns Disease, Ulcer Musculoskeletal: Yes Arthritis, Chronic Back Pain, Fractures Endocrine: No HEENT: Yes (STATED SHE HAS TROUBLE SEEING THE MENU) Loss of Vision: Right Hearing Impairment: Denies Cancer: Yes Skin, Ovarian Did You Recieve Any Treatments: Yes What Type of Treatment Did You: Surgical Intervention Psychosocial: Yes (PANIC ATTACKS, night terrors; RX DRUG ABUSE) Sleep Difficulties, Anxiety, PTSD, Bipolar, Depression Integumentary: Yes ("SKIN CANCER SPOTS") 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) Family Medical History Aortic valve disorder 19 MOTHER Cardiovascular disease 19 MOTHER FH: breast cancer G8 SISTER FH: prostate cancer 19 FATHER Myasthenia gravis G8 SISTER Psychosocial problem G8 SISTER No Pertinent Family Hx Physical Exam Vital Signs Vital Signs - First Documented 11/10/19 15:52 Temp 36.4 Pulse 94 Resp 20 B/P (MAP) 142/80 (100) Pulse Ox 96 O2 Delivery Room Air Capillary Refill : Less Than 3 Seconds General Appearance: WD/WN, no apparent distress HEENT: PERRL/EOMI, normal ENT inspection, TMs normal, pharynx normal Neck: full range of motion, normal inspection Cardiovascular: normal peripheral pulses, regular rate, rhythm Respiratory: normal breath sounds, no respiratory distress, no accessory muscle use Gastrointestinal: normal bowel sounds, non tender, soft Extremities: normal range of motion, non-tender Neurologic/Psychiatric: alert, normal mood/affect, oriented x 3 Skin: normal color, warm/dry, rash (blotchy, erythematous, painful patches/rash in a dermatomal fashion across the right scapula wrapping around to the right anterior chest and upper breast. Painful to light touch) Procedures/Interventions Date of ETT Placement: May 11, 2019 Progress/Results/Core Measures Results/Orders Vital Signs/I&O 11/10/19 15:52 Temp 36.4 Pulse 94 Resp 20 B/P (MAP) 142/80 (100) Pulse Ox 96 O2 Delivery Room Air Blood Pressure Mean: 100 Progress Progress Note : Time: 16:55 Progress Note Shingles: Plan to double her gabapentin give her some breakthrough hydrocodone, topical creams with capsaicin oil. Give her some extra Zofran and put her on acyclovir. She has follow-up in [address] Lovelace. Departure Impression Primary Impression: Shingles rash Qualified Codes: B02.9 - Zoster without complications Disposition: 01 HOME, SELF-CARE Condition: Stable Departure-Patient Inst. Decision time for Depature: 17:05 Referrals: CEASAR SNYDER MD (PCP/Family) Primary Care Physician Patient Instructions: Shingles (DC) Add. Discharge Instructions: Double up on your gabapentin. 600 mg 3 times a day by mouth. Zofran 1 or 2 tablets every 4 hours as needed to control your nausea. Use topical creams with capsaicin oil applied directly over the skin that hurts as often as necessary to control the pain. Acyclovir 800 mg 5 times a day for one week to help reduce the severity and duration of the infection. The blisters that may form and their fluid is contagious to anyone who has not had chickenpox before. You may recommend a vaccine to your family members. As a last resort if you cannot tolerate the pain you may take one tablet of hydrocodone every 6 hours as needed for breakthrough pain. Hydrocodone will cause increased risk of falls, drowsiness, constipation. You should use MiraLAX once daily to prevent the constipation at a minimum. Make a follow-up appointment with Dr. Snyder. All discharge instructions reviewed with patient and/or family. Voiced understanding. Scripts Gabapentin (Gabapentin) 300 Mg Capsule 300 MG PO TID PRN for PAIN-BREAKTHROUGH for 7 Days, #21 CAP 0 Refills Prov: ANA CRISTINA PATEL 11/10/19 Acyclovir (Acyclovir) 800 Mg Tablet 800 MG PO 5XD for 7 Days, #35 TAB 0 Refills Prov: ANA CRISTINA PATEL 11/10/19 Hydrocodone Bit/Acetaminophen (Hydrocodone/Acetaminophen 5/325mg Tablet) 1 Tab Tab 1 EACH PO Q4-6HR PRN for PAIN-MODERATE MDD 10 for 3 Days, #12 TAB 0 Refills Prov: ANA CRISTINA PATEL 11/10/19 Ondansetron (Ondansetron Odt) 4 Mg Tab.rapdis 4 MG PO Q6H PRN for NAUSEA/VOMITING, #10 TAB 0 Refills Prov: ANA CRISTINA PATEL 11/10/19 ANA CRISTINA PATEL Nov 10, 2019 16:53
[2019-11-10] MEDS ORDERED: ONDA4TAB11 PO (17:13)
[2019-11-10] MEDS ORDERED: GABA-488 PO (17:13)
[2019-11-10] MEDS ORDERED: ACYC800T PO (17:13)
[2019-11-10] MEDS ORDERED: ACHD5005 PO (17:13)
[2019-11-10 17:28] VITALS: BP 142/80
[2019-11-16] MEDS ORDERED: VITA400C58 PO (10:38)
== END 2019-11-10 17:28 | disposition home or self-care (01) ==
LOC: EDUNIT# 15:52 → ER 15:53
DX: B02.9 Zoster without complications (principal); J44.9 Chronic obstructive pulmonary disease, unspecified; I10 Essential (primary) hypertension; I25.10 Atherosclerotic heart disease of native coronary artery without angina pectoris; E78.00 Pure hypercholesterolemia, unspecified; I25.2 Old myocardial infarction; F41.9 Anxiety disorder, unspecified; F43.10 Post-traumatic stress disorder, unspecified; F31.9 Bipolar disorder, unspecified; G62.9 Polyneuropathy, unspecified; K21.9 Gastro-esophageal reflux disease without esophagitis; F17.210 Nicotine dependence, cigarettes, uncomplicated; F17.290 Nicotine dependence, other tobacco product, uncomplicated; Z85.828 Personal history of other malignant neoplasm of skin; Z85.43 Personal history of malignant neoplasm of ovary; Z90.710 Acquired absence of both cervix and uterus; Z87.820 Personal history of traumatic brain injury; Z79.82 Long term (current) use of aspirin; Z79.51 Long term (current) use of inhaled steroids; Z79.02 Long term (current) use of antithrombotics/antiplatelets; Z79.52 Long term (current) use of systemic steroids; Z88.5 Allergy status to narcotic agent; Z88.8 Allergy status to other drugs, medicaments and biological substances; Z82.49 Family history of ischemic heart disease and other diseases of the circulatory system; Z80.3 Family history of malignant neoplasm of breast; Z80.42 Family history of malignant neoplasm of prostate
CPT/HCPCS: 99281

== ENCOUNTER 2019-11-15 05:37 | Inpatient (IN) | payer MEDICARE, MEDICAID ==
[~2019-11-15] VITALS: Ht 152.4 cm; Wt 39.3 kg
[2019-11-15] VITALS (19 sets, daily range): BP systolic 51–135; BP diastolic 45–90
[~2019-11-15 05:37] MED LIST changes: +ACHD5005 PO; +ACYC800T PO; +GABA-488 PO; -MAGN400T6 PO; +MAGN400T8 PO; -MORP-33 PO; +MORP-68 PO
[2019-11-15] MEDS ORDERED: methylPREDNISolone 125 MG (Solu-MEDROL) VIAL IV STA ×2 (05:44)
[2019-11-15] MEDS ORDERED: DEXAMETHASONE 4 MG/ML SDV (DECADRON) IH ONE (05:45)
[2019-11-15] MEDS ORDERED: ONDANSETRON 4 MG/2 ML (SDV) Z0FRAN IVP ONE (05:45)
[2019-11-15] MEDS ORDERED: NITROGLYCERIN 0.4 MG SL TABS BTL 25'S SL PRN (05:45)
[2019-11-15] MEDS ORDERED: ASPIRIN 81 MG CHEW (CHILDREN'S ASA) PO ONE (05:45)
[2019-11-15] MEDS ORDERED: RT-ALBUTEROL/IPRATROPIUM 3 ML (DUONEB) VIAL INH ONE (05:45)
[2019-11-15 05:53] LABS: BASOPHILS # (AUTO) 0.1 10^3/uL (0.0-0.1); BASOPHILS % (AUTO) 1 % (0-10); EOSINOPHILS % (AUTO) 0 % (0-10); HEMATOCRIT 35 % (35-52); HEMOGLOBIN 11.2 G/DL (11.5-16.0); LYMPHOCYTES # (AUTO) 2.1 X 10^3 (1.0-4.0); LYMPHOCYTES % (AUTO) 29 % (12-44); MEAN CORPUSCULAR HEMOGLOBIN 31 PG (25-34); MEAN CORPUSCULAR HGB CONC 32 G/DL (32-36); MEAN CORPUSCULAR VOLUME 96 FL (80-99); MEAN PLATELET VOLUME 9.5 FL (7.4-10.4); MONOCYTES # (AUTO) 0.8 X 10^3 (0.0-1.0); MONOCYTES % (AUTO) 12 % (0-12); NEUTROPHILS # (AUTO) 4.3 X 10^3 (1.8-7.8); NEUTROPHILS % (AUTO) 59 % (42-75); PLATELET COUNT 210 10^3/uL (130-400); RED CELL DISTRIBUTION WIDTH 14.6 % (10.0-14.5); WHITE BLOOD COUNT 7.3 10^3/uL (4.3-11.0)
--- NOTE | 2019-11-15 05:54 | ED General ---
General Stated Complaint: N/V Source of Information: Patient, EMS History of Present Illness Date Seen by Provider: Nov 15, 2019 Time Seen by Provider: 05:35 Initial Comments PT ARRIVES VIA EMS FROM HOME PT HAS A MULTITUDE OF COMPLAINTS--ALL ONGOING FOR AT LEAST 3 DAYS C/O NAUSEA AND VOMITING C/O DIZZINESS X 3 DAYS C/O SHORTNESS OF BREATH--HAS COPD, BUT HAS NOT USED HER NEBULIZER OR INHALER FOR THE LAST 2-3 DAYS, BECAUSE "SHE DIDN'T FEEL LIKE SITTING UP" --PT SMOKES UP TO 1 1/2 PPD PT IS ON HOME O2 AT 2-3 L/ NC CONTINUOUSLY C/O CHEST PAIN--RATES "10"--COMES AND GOES AND IS WORSE WITH BREATHING C/O "PEEING ALL OVER HERSELF ALL THE TIME" C/O "CHILLS AND HOT FLASHES" STATES SHE WAS DX WITH SHINGLES 3 DAYS AGO--HAS EXTENSIVE CLASSIC SHINGLES RASH TO RIGHT CHEST AND BACK STATES SHE "CAN'T KEEP ANY OF HER MEDICATIONS DOWN FOR THE LAST 3 DAYS" UNABLE TO STATE HOW MANY TIMES SHE HAS VOMITED. NO DIARRHEA NO ABDOMINAL PAIN PT HAS HAD ME X 2 AND 2 STENTS AND TAKES PLAVIX. MAKING MULTIPLE DEMANDS SOON SHE ARRIVES PCP: DR. SNYDER PHOTOGRAPHER APPRENTICE: DR. LEWIS Allergies and Home Medications Allergies Coded Allergies: oxymorphone (Verified Allergy, Unknown, Pt takes Morphine ER at home, 09/02/19) varenicline (Verified Allergy, Unknown, 09/02/19) Uncoded Allergies: PEANUTS (Allergy, Unknown, 03/24/19) Home Medications Acetaminophen 500 Mg Tablet, 1,000 MG PO Q4H PRN for PAIN-MILD, (Reported) Acyclovir 800 Mg Tablet, 800 MG PO 5XD, (Reported) 7 DAY SUPPLY FILLED 1-8-20 Albuterol Sulfate 18 Gm Hfa.aer.ad, 2 PUFF INH Q6H PRN for SHORTNESS OF BREATH, (Reported) Albuterol Sulfate 2.5 Mg/3 Ml Vial.neb, 2.5 MG NEB TID PRN for SHORTNESS OF BREATH, (Reported) Alprazolam 0.5 Mg Tablet, 0.5 MG PO TID PRN for ANXIETY, (Reported) Amlodipine Besylate 5 Mg Tablet, 5 MG PO DAILY, (Reported) LAST FILLED #30 11-7-19 Aspirin 325 Mg Tablet.dr, 325 MG PO DAILY, (Reported) Atorvastatin Calcium 40 Mg Tablet, 40 MG PO HS, (Reported) Cholecalciferol (Vitamin D3) 2,000 Unit Capsule, 6,000 UNIT PO DAILY, (Reported) Clopidogrel Bisulfate 75 Mg Tablet, 75 MG PO DAILY, (Reported) Fluticasone/Salmeterol 1 Each Blst.w.dev, 1 PUFF IH BID, (Reported) LAST FILLED #1 09-09-19 Furosemide 40 Mg Tablet, 40 MG PO Q48H, (Reported) LAST FILLED #15 09-10-19 Gabapentin 300 Mg Capsule, 300 MG PO TID PRN for PAIN-BREAKTHROUGH, (Reported) #21 CAPSULES FILLED 11-11-19 Gabapentin 600 Mg Tablet, 600 MG PO TID, (Reported) LAST FILLED #90 09-11-19 Hydrocodone/Acetaminophen 1 Each Tablet, 1 TAB PO TID PRN for PAIN-MODERATE (5- 7), (Reported) Metoprolol Tartrate 50 Mg Tablet, 50 MG PO BID, (Reported) Nitroglycerin 0.4 Mg Tab.subl, 0.4 MG SL UD PRN for CHEST PAIN, (Reported) Ondansetron 4 Mg Tab.rapdis, 4 MG PO Q6H PRN for NAUSEA/VOMITING Prescribed by: ANA CRISTINA PATEL on 11/10/191712 Paroxetine HCl 20 Mg Tablet, 20 MG PO DAILY, (Reported) Potassium Chloride 10 Meq Capsule.er, 10 MEQ PO Q48H, (Reported) LAST FILLED #09-10-19 Spironolactone 100 Mg Tablet, 100 MG PO DAILY, (Reported) LAST FILLED #30 09-10-19 Vitamin E Mixed 400 Unit Capsule, 400 UNIT PO DAILY, (Reported) Review of Systems Review of Systems Constitutional: see HPI, diaphoresis, dizziness, fever, malaise, weakness EENTM: no symptoms reported Respiratory: see HPI, cough, short of breath, wheezing Cardiovascular: see HPI, chest pain; No edema, No palpitations, No syncope; vascular heart diseas Gastrointestinal: see HPI; No abdominal pain, No diarrhea; loss of appetite, nausea, vomiting Genitourinary: see HPI, incontinence Musculoskeletal: see HPI (RIGHT CHEST AND BACK PAIN) Skin: see HPI (SHINGLES) Psychiatric/Neurological: No Symptoms Reported Hematologic/Lymphatic: No Symptoms Reported Immunological/Allergic: no symptoms reported Past [id number]-Ljmapf-Nhnuxf Hx Past Med/Social Hx: Reviewed and Corrections made Patient Social History Alcohol Use: Denies Use Recreational Drug Use: Yes (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 SMALL BOWEL RESECTION? 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, 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 Sexually Transmitted Disease: No HIV/AIDS: No Genitourinary: No Gastrointestinal: Yes (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, WITH QUESTIONABLE SMALL BOWEL RESECTION; ) Colitis, Gastroesophageal Reflux, Crohns Disease, Ulcer Musculoskeletal: Yes (FREQUENT FALLS) Arthritis, Chronic Back Pain, Fractures Endocrine: No HEENT: Yes (POOR DENTITION) Loss of Vision: Right Hearing Impairment: Denies Cancer: Yes Skin Did You Recieve Any Treatments: Yes What Type of Treatment Did You: Surgical Intervention Psychosocial: Yes (PANIC ATTACKS," night terrors"; RX DRUG ABUSE WITH MULTIPLE OVERDOSES) Sleep Difficulties, Anxiety, PTSD, Bipolar, Depression Integumentary: Yes ("SKIN CANCER SPOTS"; SHINGLES 11/10/19) 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) Family Medical History Aortic valve disorder 19 MOTHER Cardiovascular disease 19 MOTHER FH: breast cancer G8 SISTER FH: prostate cancer 19 FATHER Myasthenia gravis G8 SISTER Psychosocial problem G8 SISTER No Pertinent Family Hx T HIP LONG HISTORY OF BENZODIAZEPINE AND OPIATE ABUSE, AND HAS BEEN PRESCRIBED HYDROCODONE, MORPHINE, OPANA AND OXYMORPONE, WELL XANAX PT HAS OVERDOSED MULTIPLE TIMES PT HAS HISTORY OF MULTIPLE "FALLS" WELL, WHICH HAVE CAUSED INTRACRANIAL BLEED 04/25/19--TREATED NON-SURGICALLY PT HAS ALSO HAD RIGHT HIP FRACTURE 08/03/18 Physical Exam Vital Signs Vital Signs - First Documented 11/15/19 06:59 FiO2 40 Capillary Refill : Height, Weight, BMI Height: 5'0" Weight: 90lbs. 7.0oz. 41.962184hw; 17.00 BMI Method:Stated General Appearance: Cachetic, Mild Distress (MILDLY DYSPNEIC ON ARRIVAL) HEENT: PERRL/EOMI, Other (NO) Focused Exam Sepsis Stage: Sepsis Possible Source: Pulmonary Lactate Level 11/15/19 05:44: Lactic Acid Level 1.02 Time of Focused Exam: 07:00 Respiratory: Other (PT INTUBATED. NO WHEEZING POST-NEB TREATMENT AND INTUBATION. + MILD RALES BILATEARALLY) Cardiovascular: Regular Rate, Rhythm, JVD Capillary Refill: Less Than 3 Seconds Peripheral Pulses: 1+ Dorsalis Pedis (R), 1+ Left Dors-Pedis (L), 1+ Radial Pulses (R), 1+ Radial Pulses (L) Skin: normal color Lactic Acid Level Within 3hrs of presentation: Admin ABX, Blood cultures prior to ABX's, Focus exam, Lactate level, Vasopressin therapy Procedures/Interventions Date of ETT Placement: May 11, 2019 Intubation Method: orotracheal Tube Size: 8 Medications: Propofol, Rocuronium, Succinylcholine, Versed Positive End Tide CO2: Yes Breath Sounds after Intubation: bilateral-equal Intubation Complications: no complications Post Intubation Xray: Yes PT INTUBATED BY RT. FIDEL WITHOUT DIFFICULTY Progress/Results/Core Measures Suspected Sepsis SIRS Temperature: Pulse: Respiratory Rate: Laboratory Tests 11/15/19 05:44: White Blood Count 7.3 11/16/19 02:54: White Blood Count 10.1 Blood Pressure / Mean: 11/15/19 05:44: Lactic Acid Level 1.02 Laboratory Tests 11/15/19 05:44: Creatinine 0.55L, INR Comment 0.9, Platelet Count 210, Total Bilirubin 0.3 11/16/19 02:54: Creatinine 0.66, Platelet Count 219 11/16/19 04:15: Creatinine 0.54L Results/Orders Lab Results Laboratory Tests Test 11/15/19 05:15 11/15/19 05:44 11/15/19 05:55 11/15/19 06:08 Range/Units Phosphorus Level 3.2 2.3-4.7 MG/DL White Blood Count 7.3 4.3-11.0 10^3/uL Red Blood Count 3.67 L 4.35-5.85 10^6/uL Hemoglobin 11.2 L 11.5-16.0 G/DL Hematocrit 35 35-52 % Mean Corpuscular Volume 96 80-99 FL Mean Corpuscular Hemoglobin 31 25-34 PG Mean Corpuscular Hemoglobin Concent 32 32-36 G/DL Red Cell Distribution Width 14.6 H 10.0-14.5 % Platelet Count 210 130-400 10^3/uL Mean Platelet Volume 9.5 7.4-10.4 FL Neutrophils (%) (Auto) 59 42-75 % Lymphocytes (%) (Auto) 29 12-44 % Monocytes (%) (Auto) 12 0-12 % Eosinophils (%) (Auto) 0 0-10 % Basophils (%) (Auto) 1 0-10 % Neutrophils # (Auto) 4.3 1.8-7.8 X 10^3 Lymphocytes # (Auto) 2.1 1.0-4.0 X 10^3 Monocytes # (Auto) 0.8 0.0-1.0 X 10^3 Eosinophils # (Auto) 0.0 0.0-0.3 10^3/uL Basophils # (Auto) 0.1 0.0-0.1 10^3/uL Prothrombin Time 12.4 12.2-14.7 SEC INR Comment 0.9 0.8-1.4 Activated Partial Thromboplast Time 31 24-35 SEC Sodium Level 129 L 135-145 MMOL/L Potassium Level 4.1 3.6-5.0 MMOL/L Chloride Level 85 L 98-107 MMOL/L Carbon Dioxide Level 33 H 21-32 MMOL/L Anion Gap 11 5-14 MMOL/L Blood Urea Nitrogen 10 7-18 MG/DL Creatinine 0.55 L 0.60-1.30 MG/DL Estimat Glomerular Filtration Rate > 60 BUN/Creatinine Ratio 18 Glucose Level 167 H 70-105 MG/DL Lactic Acid Level 1.02 0.50-2.00 MMOL/L Calcium Level 8.2 L 8.5-10.1 MG/DL Corrected Calcium 8.4 L 8.5-10.1 MG/DL Magnesium Level 1.5 L 1.6-2.4 MG/DL Total Bilirubin 0.3 0.1-1.0 MG/DL Aspartate Amino Transf (AST/SGOT) 30 5-34 U/L Alanine Aminotransferase (ALT/SGPT) 20 0-55 U/L Alkaline Phosphatase 73 40-136 U/L Total Creatine Kinase 64 29-168 U/L Creatine Kinase MB 8.8 *H <6.6 NG/ML Myoglobin 24.2 10.0-92.0 NG/ML Troponin I < 0.028 <0.028 NG/ML B-Type Natriuretic Peptide 2007.9 H <100.0 PG/ML Total Protein 6.6 6.4-8.2 GM/DL Albumin 3.8 3.2-4.5 GM/DL Triglycerides Level 108 <150 MG/DL Amylase Level 26 25-125 U/L Lipase 4 L 8-78 U/L Procalcitonin 0.07 <0.10 NG/ML Salicylates Level < 5.0 L 5.0-20.0 MG/DL Acetaminophen Level < 10 L 10-30 UG/ML Serum Alcohol < 10 <10 MG/DL Urine Color YELLOW Urine Clarity CLEAR Urine pH 7.0 5-9 Urine Specific Ama 1.020 1.016-1.022 Urine Protein 2+ H NEGATIVE Urine Glucose (UA) NEGATIVE NEGATIVE Urine Ketones NEGATIVE NEGATIVE Urine Nitrite NEGATIVE NEGATIVE Urine Bilirubin NEGATIVE NEGATIVE Urine Urobilinogen 0.2 < = 1.0 MG/DL Urine Leukocyte Esterase NEGATIVE NEGATIVE Urine RBC (Auto) 1+ H NEGATIVE Urine RBC 5-10 H /HPF Urine WBC 0-2 /HPF Urine Squamous Epithelial Cells 2-5 /HPF Urine Crystals NONE /LPF Urine Bacteria TRACE /HPF Urine Casts NONE /LPF Urine Mucus MODERATE H /LPF Urine Yeast FEW H /HPF Urine Culture Indicated YES Urine Opiates Screen NEGATIVE NEGATIVE Urine Oxycodone Screen NEGATIVE NEGATIVE Urine Methadone Screen NEGATIVE NEGATIVE Urine Propoxyphene Screen NEGATIVE NEGATIVE Urine Barbiturates Screen NEGATIVE NEGATIVE Ur Tricyclic Antidepressants Screen NEGATIVE NEGATIVE Urine Phencyclidine Screen NEGATIVE NEGATIVE Urine Amphetamines Screen NEGATIVE NEGATIVE Urine Methamphetamines Screen NEGATIVE NEGATIVE Urine Benzodiazepines Screen NEGATIVE NEGATIVE Urine Cocaine Screen NEGATIVE NEGATIVE Urine Cannabinoids Screen NEGATIVE NEGATIVE Blood Gas Puncture Site RIGHT RADIAL Blood Gas Patient Temperature 35.6 Arterial Blood pH 7.28 *L 7.37-7.43 Arterial Blood Partial Pressure CO2 84 *H 35-45 MMHG Arterial Blood Partial Pressure O2 87 79-93 MMHG Arterial Blood HCO3 39 H 23-27 MMOL/L Arterial Blood Total CO2 41.5 H 21.0-31.0 MMOL/L Arterial Blood Oxygen Saturation 97 94-100 % Arterial Blood Base Excess 11.5 H -2.5-2.5 MMOL/L Jc Test YES-POS Blood Gas Ventilator Setting NO Blood Gas Inspired Oxygen 3L Test 11/15/19 07:42 11/15/19 11:28 11/15/19 11:50 11/15/19 17:29 Range/Units Blood Gas Puncture Site RIGHT RADIAL Blood Gas Patient Temperature 36.8 Arterial Blood pH 7.51 H 7.37-7.43 Arterial Blood Partial Pressure CO2 49 H 35-45 MMHG Arterial Blood Partial Pressure O2 60 L 79-93 MMHG Arterial Blood HCO3 39 H 23-27 MMOL/L Arterial Blood Total CO2 40.8 H 21.0-31.0 MMOL/L Arterial Blood Oxygen Saturation 94 94-100 % Arterial Blood Base Excess 14.9 H -2.5-2.5 MMOL/L Jc Test POSITIVE Blood Gas Ventilator Setting YES Blood Gas Inspired Oxygen 40% Glucometer 138 H 135 H 70-110 MG/DL Troponin I < 0.028 <0.028 NG/ML Test 11/15/19 18:08 11/15/19 22:58 11/16/19 02:54 11/16/19 03:45 Range/Units Troponin I < 0.028 <0.028 NG/ML Glucometer 146 H 70-110 MG/DL White Blood Count 10.1 4.3-11.0 10^3/uL Red Blood Count 3.20 L 4.35-5.85 10^6/uL Hemoglobin 9.6 L 11.5-16.0 G/DL Hematocrit 30 L 35-52 % Mean Corpuscular Volume 92 80-99 FL Mean Corpuscular Hemoglobin 30 25-34 PG Mean Corpuscular Hemoglobin Concent 33 32-36 G/DL Red Cell Distribution Width 14.7 H 10.0-14.5 % Platelet Count 219 130-400 10^3/uL Mean Platelet Volume 9.1 7.4-10.4 FL Neutrophils (%) (Auto) 87 H 42-75 % Lymphocytes (%) (Auto) 8 L 12-44 % Monocytes (%) (Auto) 5 0-12 % Eosinophils (%) (Auto) 0 0-10 % Basophils (%) (Auto) 0 0-10 % Neutrophils # (Auto) 8.8 H 1.8-7.8 X 10^3 Lymphocytes # (Auto) 0.8 L 1.0-4.0 X 10^3 Monocytes # (Auto) 0.5 0.0-1.0 X 10^3 Eosinophils # (Auto) 0.0 0.0-0.3 10^3/uL Basophils # (Auto) 0.0 0.0-0.1 10^3/uL Sodium Level 134 L 135-145 MMOL/L Potassium Level 2.9 L 3.6-5.0 MMOL/L Chloride Level 91 L 98-107 MMOL/L Carbon Dioxide Level 29 21-32 MMOL/L Anion Gap 14 5-14 MMOL/L Blood Urea Nitrogen 11 7-18 MG/DL Creatinine 0.66 0.60-1.30 MG/DL Estimat Glomerular Filtration Rate > 60 BUN/Creatinine Ratio 17 Glucose Level 168 H 70-105 MG/DL Calcium Level 7.6 L 8.5-10.1 MG/DL Phosphorus Level 2.7 2.3-4.7 MG/DL Magnesium Level 1.7 1.6-2.4 MG/DL B-Type Natriuretic Peptide 494.5 H <100.0 PG/ML Blood Gas Puncture Site RIGHT RADIAL Blood Gas Patient Temperature 37.0 Arterial Blood pH 7.52 H 7.37-7.43 Arterial Blood Partial Pressure CO2 42 35-45 MMHG Arterial Blood Partial Pressure O2 66 L 79-93 MMHG Arterial Blood HCO3 34 H 23-27 MMOL/L Arterial Blood Total CO2 35.6 H 21.0-31.0 MMOL/L Arterial Blood Oxygen Saturation 93 L 94-100 % Arterial Blood Base Excess 10.6 H -2.5-2.5 MMOL/L Jc Test YES-POS Blood Gas Ventilator Setting YES Blood Gas Inspired Oxygen 35% Test 1/13/20 04:15 11/16/19 08:40 11/16/19 11:10 11/16/19 17:25 Range/Units Sodium Level 133 L 135-145 MMOL/L Potassium Level 3.5 L 3.6-5.0 MMOL/L Chloride Level 95 L 98-107 MMOL/L Carbon Dioxide Level 28 21-32 MMOL/L Anion Gap 10 5-14 MMOL/L Blood Urea Nitrogen 8 7-18 MG/DL Creatinine 0.54 L 0.60-1.30 MG/DL Estimat Glomerular Filtration Rate > 60 BUN/Creatinine Ratio 15 Glucose Level 117 H 70-105 MG/DL Calcium Level 7.7 L 8.5-10.1 MG/DL Phosphorus Level 1.7 L 2.3-4.7 MG/DL Magnesium Level 1.8 1.6-2.4 MG/DL Blood Gas Puncture Site rr Blood Gas Patient Temperature 36.7 Arterial Blood pH 7.56 H 7.37-7.43 Arterial Blood Partial Pressure CO2 36 35-45 MMHG Arterial Blood Partial Pressure O2 58 L 79-93 MMHG Arterial Blood HCO3 33 H 23-27 MMOL/L Arterial Blood Total CO2 33.7 H 21.0-31.0 MMOL/L Arterial Blood Oxygen Saturation 92 L 94-100 % Arterial Blood Base Excess 9.5 H -2.5-2.5 MMOL/L Jc Test YES-POS Blood Gas Ventilator Setting YES Blood Gas Inspired Oxygen 35% Glucometer 170 H 137 H 70-110 MG/DL Micro Results Microbiology 11/15/19 MRSA Screen - Final, Complete MRSA not isolated 11/15/19 Gram Stain - Final, Resulted 11/15/19 Sputum Culture - Preliminary, Resulted Pseudomonas aeruginosa 11/15/19 Blood Culture - Preliminary, Resulted No growth 11/15/19 Influenza Types A,B Antigen (TRINIDAD) - Final, Complete 11/15/19 Urine Culture - Final, Complete NO GROWTH 11/15/19 Blood Culture - Preliminary, Resulted No growth My Orders Orders - KVEON FIERRO DO Ed Iv/Invasive Line Start (11/15/19 05:44) Ekg Tracing (11/15/19 05:44) Catheter(Urinary) Insert & Ass 03,15 (11/15/19 05:44) O2 (11/15/19 05:44) Monitor-Rhythm Ecg Trace Only (11/15/19 05:44) Amylase (11/15/19 05:44) BNP (11/15/19 05:44) Cbc With Automated Diff (11/15/19 05:44) Comprehensive Metabolic Panel (11/15/19 05:44) Creatine Kinase (11/15/19 05:44) Creatine Kinase Mb (11/15/19 05:44) Lactic Acid Analyzer (11/15/19 05:44) Lipase (11/15/19 05:44) Magnesium (11/15/19 05:44) Protime With Inr (11/15/19 05:44) Partial Thromboplastin Time (11/15/19 05:44) Ua Culture If Indicated (11/15/19 05:44) Blood Culture (11/15/19 05:44) Influenza A And B Antigens (11/15/19 05:44) Myoglobin Serum (11/15/19 05:44) Troponin I (11/15/19 05:44) Chest 1 View, Ap/Pa Only (11/15/19 05:44) Methylprednisolone Sod Succ (Solu-Medrol (11/15/19 05:44) Aspirin Chewable Tablet (Baby Aspirin Ch (11/15/19 05:45) Nitroglycerin 0.4 Mg Btl 25's (Nitrostat (11/15/19 05:45) Albuterol/Ipra Inhalation Soln (Duoneb I (11/15/19 05:45) Dexamethasone Injection (Decadron Inject (11/15/19 05:45) Rt Request For Service (11/15/19 05:44) Methylprednisolone Sod Succ (Solu-Medrol (11/15/19 05:44) Ondansetron Injection (Zofran Injectio (11/15/19 05:45) Scopolamine Patch (Transderm-Scop Patch) (11/15/19 06:00) Ekg Tracing (11/15/19 05:55) Lorazepam Injection (Ativan Injection) (11/15/19 06:15) Arterial Blood Gas (11/15/19 06:07) Drug Screen Stat (Urine) (11/15/19 06:07) Acetaminophen (11/15/19 05:44) Alcohol (11/15/19 05:44) Salicylate (11/15/19 05:44) Urine Culture (11/15/19 05:55) Furosemide Injection (Lasix Injection) (11/15/19 06:30) Ng Tube Insert & Assessment (11/15/19 06:49) Ekg Tracing (11/15/19 06:51) Arterial Blood Gas (11/15/19 06:51) Acyclovir Injection (Zovirax Injection) (11/15/19 14:00) Cefepime Injection (Maxipime Injection) (11/15/19 07:00) Vancomycin Injection (Vancomycin Injecti (11/15/19 07:00) Norepinephrine 4 Mg/250 Ml Ns (Norepinep (11/15/19 07:04) Procalcitonin (Pct) (11/15/19 07:11) Propofol Injection (Diprivan Injection) (11/15/19 09:45) Rt Request For Service (11/15/19 09:32) Lactated Ringers (Lr 1000 Ml Iv Solution (11/15/19 10:16) Dexmedetomidine 250 Ml Drip (Precedex Dr (11/15/19 10:16) Propofol Drip (Icu) (Diprivan Drip (Icu) (11/15/19 10:55) Medications Given in ED Vital Signs/I&O 11/16/19 11/16/19 11/16/19 11/16/19 08:00 08:00 09:00 10:00 Pulse 95 92 92 Resp 17 22 18 B/P (MAP) 127/66 (86) 112/60 (77) 119/79 (92) Pulse Ox 92 93 91 93 O2 Delivery Mechanical Ventilator Mechanical Ventilator Mechanical Ventilator Mechanical Ventilator O2 Flow Rate 35.00 35.00 35.00 FiO2 35 11/16/19 11/16/19 11/16/19 11/16/19 10:33 11:00 11:27 12:00 Temp 37.0 36.6 Pulse 84 93 89 Resp 29 22 B/P (MAP) 113/53 (73) Pulse Ox 92 91 93 O2 Delivery Mechanical Ventilator O2 Flow Rate 35.00 FiO2 35 35 11/16/19 11/16/19 11/16/19 11/16/19 12:00 12:00 12:30 13:00 Pulse 89 96 Resp 19 B/P (MAP) 94/57 (69) Pulse Ox 92 89 O2 Delivery Mechanical Ventilator Mechanical Ventilator Mechanical Ventilator O2 Flow Rate 35.00 45.00 FiO2 35 11/16/19 11/16/19 11/16/19 11/16/19 13:00 13:25 14:00 14:27 Pulse 94 89 86 Resp 22 17 21 B/P (MAP) 133/70 (91) 128/70 147/95 (112) Pulse Ox 96 93 93 O2 Delivery Mechanical Ventilator Mechanical Ventilator O2 Flow Rate 45.00 45.00 FiO2 45 11/16/19 11/16/19 11/16/19 11/16/19 15:00 15:42 16:00 16:00 Temp 36.8 Pulse 96 97 Resp 16 15 B/P (MAP) 141/79 (99) 148/80 (102) Pulse Ox 90 94 O2 Delivery Mechanical Ventilator Mechanical Ventilator Mechanical Ventilator O2 Flow Rate 45.00 50.00 50.00 11/16/19 11/16/19 11/16/19 11/16/19 16:00 17:00 18:00 18:11 Pulse 94 93 Resp 17 16 B/P (MAP) 145/95 (112) 150/94 (112) 150/94 Pulse Ox 92 95 96 O2 Delivery Mechanical Ventilator Mechanical Ventilator Mechanical Ventilator O2 Flow Rate 50.00 50.00 FiO2 35 11/16/19 18:30 Pulse 90 Resp 26 Pulse Ox 97 FiO2 50 Capillary Refill : Progress Note : Progress Note NOT COOPERATING FOR NEB TREATMENT--STATES DURING "BLOW BY" NEB TREATMENT AND EKG "YOU'RE SUFFOCATING ME" AND REFUSES TO FINISH NEB TREATMENT, UNABLE TO HOLD STILL FOR EKG, ANXIOUS, AGITATED, C/O "BEING HOT AND SWEATY" --PT HAS NORMAL TEMP AND IS NOT DIAPHORETIC AND SKIN IS NORMAL COLOR. ON REVIEWING ABG RESULTS, AND DISCUSSING WITH PT, SHE ADAMANTLY REFUSES BIPAP DISCUSSED INTUBATION AND VENTILATOR AND PT IS AGREEABLE TO THIS, AND WISHES TO BE A FULL CODE. RSI PROTOCOL INITIATED--SEE NURSING NOTES FOR DETAILS. Critical Care Note Critical Care Start Time: 05:35 Progress SEE NURSING NOTES FOR DETAILS PT ELECTIVELY INTUBATED DUE TO INCREASED DYSPNEA, INCREASED AGITATION AND UNWILLINGNESS TO DO NEB TREATMENT OR BIPAP PT HAD NORMAL BP PRIOR TO INTUBATION, BUT HAD DROP IN BP AFTER GIVEN SEDATION --LEVOPHED DRIP INITIATED, PT IS ALREADY IN CHF, DID NOT GIVE LARGE AMOUNTS OF FLUIDS. Departure Communication (Admissions) 0656--SPOKE WITH DR. MOIJCA, RADIO REPAIR TEACHER, FOR CONSULT. NO ADDITIONAL RECOMMENDATIONS AT THIS TIME 0657--SPOKE WITH DR. GALE, HOSPITALIST FOR [facility]. ACCEPTS PT FOR ADMIT. Impression Primary Impression: Acute on chronic respiratory failure with hypercapnia Additional Impressions: COPD exacerbation POSSIBLE SEPSIS POST INTUBATION HYPOTENSION CHF (congestive heart failure) HERPES ZOSTER RIGHT CHEST AND BACK Hypomagnesemia Hyponatremia Cachexia REPORTED NAUSEA AND VOMITING HX OF OPIATE AND BENZODIAZEPINE ABUSE HX OF CAD WITH STENTS Disposition: ADMITTED INPATIENT Condition: Stable (BUT SERIOUS) Admissions Decision to Admit Reason: Admit from ER (General) Decision to Admit/Date: Nov 15, 2019 Time/Decision to Admit Time: 07:00 Departure-Patient Inst. Referrals: CEASAR SNYDER MD (PCP/Family) Primary Care Physician KEVON FIERRO DO Nov 15, 2019 05:54
[2019-11-15] MEDS ORDERED: SCOPOLAMINE 1.5 MG (TRANSDERM-SCOP) PATCH TD ONE (06:00)
[2019-11-15 06:03] LABS: BILIRUBIN,URINE NEGATIVE (NEGATIVE); CLARITY,URINE CLEAR; COLOR,URINE YELLOW; GLUCOSE, URINE (UA) NEGATIVE (NEGATIVE); KETONES,URINE NEGATIVE (NEGATIVE); LEUKOCYTE ESTERASE ,URINE NEGATIVE (NEGATIVE); NITRITE,URINE NEGATIVE (NEGATIVE); PROTEIN,URINE 2+ (NEGATIVE)
[2019-11-15 06:04] LABS: INR 0.9 (0.8-1.4); PROTHROMBIN TIME PATIENT 12.4 SEC (12.2-14.7)
[2019-11-15] MEDS ORDERED: LORazepam INJ 2 MG/ML (ATIVAN) VIAL IVP ONE (06:15)
--- NOTE | 2019-11-15 06:15 | NUR ---
THIS RN IN TO OBTAIN FLU SWAB. THIS RN COVERED PT'S LEGS W/ BLANKET ET PLACED HER GOWN OVER HER SHOULDERS. PT STATED SHE'S "TOO HOT" ET PULLED HER GOWN DOWN EXPOSING HER BREASTS ET REMOVED THE BLANKET. CURTAIN TO ROOM PULLED TO PROVIDE PRIVACY AT THIS TIME.
[2019-11-15 06:17] LABS: ABG BASE EXCESS 11.5 MMOL/L (-2.5-2.5); ABG OXYGEN SATURATION 97 % (94-100); ABG PO2 87 MMHG (79-93); ABG TCO2 41.5 MMOL/L (21.0-31.0)
[2019-11-15 06:22] LABS: BACTERIA,URINE TRACE /HPF; WBC,URINE 0-2 /HPF
[2019-11-15 06:23] LABS: YEAST,URINE FEW /HPF
[2019-11-15 06:24] LABS: ALANINE AMINOTRANSFERASE 20 U/L (0-55); ALBUMIN 3.8 GM/DL (3.2-4.5); ALKALINE PHOSPHATASE 73 U/L (40-136); AMYLASE 26 U/L (25-125); BILIRUBIN,TOTAL 0.3 MG/DL (0.1-1.0); BUN/CREATININE RATIO 18; CALCIUM 8.2 MG/DL (8.5-10.1); CARBON DIOXIDE 33 MMOL/L (21-32); CHLORIDE 85 MMOL/L (98-107); CREATINE KINASE 64 U/L (29-168); CREATININE SERUM 0.55 MG/DL (0.60-1.30); GFR ESTIMATED > 60; GLUCOSE 167 MG/DL (70-105); LIPASE 4 U/L (8-78); MAGNESIUM 1.5 MG/DL (1.6-2.4); POTASSIUM 4.1 MMOL/L (3.6-5.0); SALICYLATE < 5.0 MG/DL (5.0-20.0); SODIUM 129 MMOL/L (135-145); TOTAL PROTEIN 6.6 GM/DL (6.4-8.2)
[2019-11-15 06:25] LABS: ABG PH 7.28 (7.37-7.43)
[2019-11-15 06:26] LABS: ABG PCO2 84 MMHG (35-45); ALLENS TEST YES-POS; INSPIRED O2 3L; PATIENT TEMP 35.6; VENTILATOR NO
[2019-11-15 06:27] LABS: ACETAMINOPHEN < 10 UG/ML (10-30); CREATINE KINASE MB 8.8 NG/ML (<6.6)
[2019-11-15 06:28] LABS: AMPHETAMINE SCREEN, URINE NEGATIVE (NEGATIVE); BENZODIAZEPINES SCREEN URINE NEGATIVE (NEGATIVE); CANNABINOID SCREEN, URINE NEGATIVE (NEGATIVE); COCAINE SCREEN URINE NEGATIVE (NEGATIVE); METHAMPHETAMINE SCREEN URINE S NEGATIVE (NEGATIVE); OPIATE SCREEN URINE NEGATIVE (NEGATIVE)
--- NOTE | 2019-11-15 06:28 | NUR ---
DR FIERRO TO BEDSIDE DISCUSSING LAB RESULTS. DISCUSSED BIPAP W/ PT. PT REFUSED, AGREED TO INTUBATION. 0634-18G HL TO LT HAND. PT PULLED OUT 20G TO RAC 0641-VERSED 4MG IV BOLUS 0643-SUCCS 70MG IV BOLUS 0644-ROCURONIUM 70MG IV BOLUS 0645-#8 ET TUBE PLACED BY YAMIL SOLANO. COLOR CHANGE NOTED, BS AUSCULTED THROUGHOUT, 23 @ THE LIP [id number] OG PLACED 0654-PORTABLE CXR 0655-ET TUBE MOVED TO 22 @ LIP
[2019-11-15 06:29] LABS: BARBITURATE SCREEN URINE NEGATIVE (NEGATIVE); METHADONE STAT NEGATIVE (NEGATIVE); OXYCODONE STAT NEGATIVE (NEGATIVE); PROPOXYPHENE STAT NEGATIVE (NEGATIVE); TRICYCLIC ANTIDEPRESSANTS SCRE NEGATIVE (NEGATIVE)
[2019-11-15] MEDS ORDERED: FUROSEMIDE 40 MG/4 ML INJ (LASIX) IVP ONE (06:30)
[2019-11-15] MEDS ORDERED: CEFEPIME INJECTION 2,000 MG in WATER (STERILE) FOR INJECTION 20 ML IV ONE (07:00)
[2019-11-15] MEDS ORDERED: VANCOMYCIN INJECTION 1,000 MG in NS (IVPB) 250 ML IV SCH (07:00)
--- NOTE | 2019-11-15 07:00 | NUR ---
REPORT FROM АННА AGOST[facility]
[2019-11-15] MEDS ORDERED: NOREPINEPHRINE 4 MG/250 ML NS 250 ML IV ONE (07:04)
--- NOTE | 2019-11-15 07:12 | Diagnostic Imaging Report ---
INDICATION: Intubation. TECHNIQUE: Single view chest 6:54 AM. CORRELATION STUDY: 09/12/2019 FINDINGS: Endotracheal tube has been placed with tip projected over the trachea and approximately level of the aortic arch. Gastric tube is also in place passing below the left hemidiaphragm and edge of the film. Heart size and mediastinum appearing generally stable. Some prominent appearance about the central pulmonary arteries. Vasculature overall appears increased with some increased cephalization noted. There is what appears to be largely chronic type changes about the lung parenchyma with prominent interstitial markings. Slight increased density at the lung apices are present. There is some prominent interstitial markings likely reflecting mild edema. IMPRESSION: 1. Interval intubation and placement of gastric tube. 2. While heart size relatively stable, vasculature does appear to be slightly increased and the mildly prominent interstitial markings may reflect a component of underlying edema. Follow-up imaging is recommended. Dictated by: Dictated on workstation # [id number]
--- NOTE | 2019-11-15 07:49 | NUR ---
SISTER CALLED AND NOTIFIED OF PT CONDITION AND ADMISSION TO -5
[2019-11-15 07:50] LABS: ABG BASE EXCESS 14.9 MMOL/L (-2.5-2.5); ABG OXYGEN SATURATION 94 % (94-100); ABG PCO2 49 MMHG (35-45); ABG PH 7.51 (7.37-7.43); ABG PO2 60 MMHG (79-93); ABG TCO2 40.8 MMOL/L (21.0-31.0)
[2019-11-15 07:51] LABS: ALLENS TEST POSITIVE; INSPIRED O2 40%; PATIENT TEMP 36.8; VENTILATOR YES
--- NOTE | 2019-11-15 08:05 | NUR ---
ROCCURONIUM 70MG IV GIVEN ORDERED PT AWAKE W EYES OPEN. DR FIERRO IN ROOM
--- NOTE | 2019-11-15 09:00 | Pulmonary Consultation ---
History of Present Illness History of Present Illness Date Seen by Provider: Nov 15, 2019 Time Seen by Provider: 08:54 Date of Admission Allergies and Home Medications Allergies Coded Allergies: oxymorphone (Verified Allergy, Unknown, Pt takes Morphine ER at home, 09/02/19) varenicline (Verified Allergy, Unknown, 09/02/19) Uncoded Allergies: PEANUTS (Allergy, Unknown, 03/24/19) Home Medications Acetaminophen 500 Mg Tablet, 1,000 MG PO Q4H PRN for PAIN-MILD, (Reported) Acyclovir 800 Mg Tablet, 800 MG PO 5XD Prescribed by: ANA CRISTINA PATEL on 11/10/191712 Albuterol Sulfate 18 Gm Hfa.aer.ad, 2 PUFF INH Q6H PRN for SHORTNESS OF BREATH, (Reported) Alprazolam 0.5 Mg Tablet, 0.5 MG PO TID PRN for ANXIETY Prescribed by: SINDY GALE on 09/09/191132 Amlodipine Besylate 5 Mg Tablet, 5 MG PO DAILY Prescribed by: SINDY GALE on 09/09/19 113 Aspirin 325 Mg Tablet.dr, 325 MG PO DAILY, (Reported) Atorvastatin Calcium 40 Mg Tablet, 40 MG PO HS, (Reported) Budesonide 0.5 Mg/2 Ml Ampul.neb, 0.5 MG INH RTBID Prescribed by: SINDY GALE on 09/09/19 113 Clopidogrel Bisulfate 75 Mg Tablet, 75 MG PO DAILY, (Reported) Fluticasone/Salmeterol 1 Each Blst.w.dev, 1 EACH IH BID Prescribed by: SINDY GALE on 09/09/19 113 Furosemide 40 Mg Tablet, 40 MG PO Q48H Prescribed by: SINDY GALE on 09/09/19 113 Gabapentin 600 Mg Tablet, 600 MG PO TID Prescribed by: SINDY GALE on 09/09/19 113 Gabapentin 300 Mg Capsule, 300 MG PO TID PRN for PAIN-BREAKTHROUGH Prescribed by: ANA CRISTINA PATEL on 11/10/191712 Hydrocodone Bit/Acetaminophen 1 Tab Tab, 1 EACH PO Q4-6HR PRN for PAIN-MODERATE Prescribed by: ANA CRISTINA PATEL on 11/10/191712 Hydrocodone/Acetaminophen 1 Each Tablet, 1 TAB PO TID PRN for PAIN-MODERATE Prescribed by: SINDY GALE on 09/09/19 1133 Ipratropium/Albuterol Sulfate 3 Ml Ampul.neb, 3 ML INH RTQ4HR Prescribed by: SINDY GALE on 09/09/19 113 Lisinopril 10 Mg Tablet, 10 MG PO DAILY, (Reported) LAST FILLED #30 07-20-19 Metoprolol Tartrate 50 Mg Tablet, 50 MG PO BID, (Reported) LAST FILLED #180 04-21-19 Nitroglycerin 0.4 Mg Tab.subl, 0.4 MG SL UD PRN for CHEST PAIN, (Reported) Ondansetron 4 Mg Tab.rapdis, 4 MG PO Q8H PRN for NAUSEA/VOMITING-1ST LINE, (Reported) Ondansetron 4 Mg Tab.rapdis, 4 MG PO Q6H PRN for NAUSEA/VOMITING Prescribed by: ANA CRISTINA PATEL on 11/10/19 1713 Paroxetine HCl 20 Mg Tablet, 20 MG PO DAILY, (Reported) Potassium Chloride 10 Meq Capsule.er, 10 MEQ PO Q48H Prescribed by: SINDY GALE on 09/09/19 113 Prednisone 10 Mg Tab.ds.pk, 40 MG PO DAILY Prescribed by: SINDY GALE on 09/09/19 113 Spironolactone 100 Mg Tablet, 100 MG PO DAILY Prescribed by: SINDY GALE on 09/09/19 113 Past Apgdhwj-Rfoihf-Ntpffs Hx Patient Social History Alcohol Use: Denies Use Recreational Drug Use: Yes (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) 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 SMALL BOWEL RESECTION? 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, 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 Sexually Transmitted Disease: No HIV/AIDS: No Genitourinary: No Gastrointestinal: Yes (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, WITH QUESTIONABLE SMALL BOWEL RESECTION; ) Colitis, Gastroesophageal Reflux, Crohns Disease, Ulcer Musculoskeletal: Yes (FREQUENT FALLS) Arthritis, Chronic Back Pain, Fractures Endocrine: No HEENT: Yes (POOR DENTITION) Loss of Vision: Right Hearing Impairment: Denies Cancer: Yes Skin, Ovarian Did You Recieve Any Treatments: Yes What Type of Treatment Did You: Surgical Intervention Psychosocial: Yes (PANIC ATTACKS," night terrors"; RX DRUG ABUSE WITH MULTIPLE OVERDOSES) Sleep Difficulties, Anxiety, PTSD, Bipolar, Depression Integumentary: Yes ("SKIN CANCER SPOTS"; SHINGLES 11/10/19) 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) Family Medical History Aortic valve disorder 19 MOTHER Cardiovascular disease 19 MOTHER FH: breast cancer G8 SISTER FH: prostate cancer 19 FATHER Myasthenia gravis G8 SISTER Psychosocial problem G8 SISTER No Pertinent Family Hx T HIP LONG HISTORY OF BENZODIAZEPINE AND OPIATE ABUSE, AND HAS BEEN PRESCRIBED HYDROCODONE, MORPHINE, OPANA AND OXYMORPONE, WELL XANAX PT HAS OVERDOSED MULTIPLE TIMES PT HAS HISTORY OF MULTIPLE "FALLS" WELL, WHICH HAVE CAUSED INTRACRANIAL BLEED 04/25/19--TREATED NON-SURGICALLY PT HAS ALSO HAD RIGHT HIP FRACTURE 08/03/18 Sepsis Event Evaluation Height, Weight, BMI Height: 5'0" Weight: 90lbs. 7.0oz. 41.591212hq; 17.00 BMI Method:Stated Exam Exam Vital Signs Date Time Temp Pulse Resp B/P (MAP) Pulse Ox O2 Delivery O2 Flow Rate FiO2 11/15/19 06:59 99 24 93 40 11/15/19 06:01 99 Nasal Cannula 3.00 11/15/19 05:38 97 Nasal Cannula 3.00 11/15/19 05:38 35.9 91 24 168/81 (110) 97 Nasal Cannula 3.00 Height & Weight Height: 5'0" Weight: 90lbs. 7.0oz. 41.264648yx; 17.00 BMI Method:Stated General Appearance: Cachetic, Mild Distress (MILDLY DYSPNEIC ON ARRIVAL) HEENT: PERRL/EOMI, Other (NO) Respiratory: Other (PT INTUBATED. NO WHEEZING POST-NEB TREATMENT AND INTUBATION. + MILD RALES BILATEARALLY) Cardiovascular: Regular Rate, Rhythm, JVD Capillary Refill: Less Than 3 Seconds Peripheral Pulses: 1+ Dorsalis Pedis (R), 1+ Left Dors-Pedis (L), 1+ Radial Pulses (R), 1+ Radial Pulses (L) Results Lab Laboratory Tests 11/15/19 05:44 Assessment/Plan Assessment/Plan Acute respiratory failure -Vent -Duoneb Q 4 -Solumedrol 40 IV Q 6 Hypotension -IVF -Currently on Levophed -- titrate down CHF -S/P lasix -Check echo Herpes Zoster to right chest and back Hypomag -replace Hyponatremia -Monitor HX of Opiate and Benzo abuse NSTEMI with hx of CAD -Cardiology following -trend troponins KATARZYNA MOJICA DO Nov 15, 2019 09:00
[2019-11-15] MEDS ORDERED: CEFEPIME 2 GM (MAXIPIME) VIAL ONE (09:12)
[2019-11-15] MEDS ORDERED: MIDAZOLAM 5 MG/5 ML (VERSED) VIAL ONE (09:12)
[2019-11-15] MEDS ORDERED: PIPERACILLIN/TAZOBACTAM (BULK) 4.5 GM in NS (IVPB) 100 ML IV NR (09:15)
[2019-11-15] MEDS ORDERED: WATER (STERILE) FOR INJECTION 20 ML ONE (09:15)
[2019-11-15] MEDS ORDERED: SUCCINYLCHOLINE INJ 100 MG/5 ML SYR INJ ONE (09:27)
[2019-11-15] MEDS ORDERED: PROPOFOL DRIP (ICU) 100 ML IV ONE (09:27)
[2019-11-15] MEDS ORDERED: MIDAZOLAM 5 MG/5 ML (VERSED) VIAL IJ ONE (09:27)
[2019-11-15] MEDS ORDERED: ROCURONIUM 10 MG/ML 5 ML SYRINGE IV ONE (09:27)
[2019-11-15] MEDS ORDERED: PROPOFOL INJECTION 50 ML IV SCH (09:45)
--- NOTE | 2019-11-15 09:54 | NUR ---
PT TRANSFERED ON VENT, OG,MOTA, IV LEVAPHED AND IV DIPROVAN.
--- NOTE | 2019-11-15 10:05 | NUR ---
Pt arrived to [facility] from ED, intubated. Pt moving about in bed attempting to pull lines et tubes. Pt transferred to ICU bed. Noted severe shingles outbreak to rt side, under breast et around to back. Few sporatic spots on neck. Admission assessment underway. No family with pt at this time.
[2019-11-15] MEDS ORDERED: LACTATED RINGERS 1,000 ML IV ONE (10:16)
[2019-11-15] MEDS ORDERED: DexMEDEtomidine 250 ML DRIP 250 ML IV ONE (10:16)
--- NOTE | 2019-11-15 10:20 | NUR ---
Dr. Walker at bedside
[2019-11-15] MEDS ORDERED: LACTATED RINGERS 1,000 ML IV SCH (10:30)
[2019-11-15] MEDS ORDERED: D5 1/2 NS W/KCL 20 MEQ/L 1,000 ML IV SCH (10:45)
--- NOTE | 2019-11-15 10:50 | NUR ---
Dr. Whitley at bedside
--- NOTE | 2019-11-15 11:04 | NUR ---
Vanco Dosing - Patient received 1gm per ER physician, maintenance dose of 500mg every 12 hours. Vanco trough 11/17 @ 08.
[2019-11-15] MEDS: PROPOFOL DRIP (ICU) 100 ML IV SCH ×2 (11:13→19:49)
[2019-11-15] MEDS: fentaNYL INJECTION 1,250 MCG in NS (IVPB) 250 ML IV SCH (11:22)
[2019-11-15] MEDS: MAGNESIUM 1 GM/100 ML IVPB 100 ML IV SCH ×2 (11:52→11:53)
[2019-11-15] MEDS: LACTATED RINGERS 1,000 ML IV SCH ×4 (11:53→23:42)
[2019-11-15] MEDS: DexMEDEtomidine 250 ML DRIP 250 ML IV SCH ×2 (11:56→21:03)
[2019-11-15] MEDS ORDERED: FUROSEMIDE 40 MG/4 ML INJ (LASIX) IV NR (12:00)
--- NOTE | 2019-11-15 12:09 | History & Physical-Hospitalist ---
History of Present Illness HPI/Chief Complaint CC: Respiratory failure with chronic respiratory failure HPI: This is a 69yoWF clinic patient of [facility] who has h/o COPD severe type O2 dependent with multiple hospital stays in the past who continues to smoke who presents to the ER with dyspnea. Patient required intubation when arrived due to acidosis of respiratory source. Patient has acute herpes zoster on right breast dermatome and will be covered with IV Acyclovir. Appreciate Dr Walker consultation. Source: RN/MD, old records Exam Limitations: clinical condition Date Seen 11/15/19 Time Seen by a Provider: 10:30 Attending Physician Sebastian Olsen MD PCP Sebastian Olsen MD Referring Physician Date of Admission Nov 15, 2019 at 06:57 Home Medications & Allergies Home Medications Reviewed patient Home Medication Reconciliation performed by pharmacy medication reconciliations in flight technician and/or nursing. Patients Allergies have been reviewed. 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 Smoking Status: Current Everyday Smoker (1 1/2 PPD SINCE AGE 9) Type Used: Cigarettes 2nd Hand Smoke Exposure: Yes Recent Foreign Travel: No Contact w/other who traveled: No Recent Hopitalizations: No Recent Infectious Disease Expo: No Immunizations Up To Date Tetanus Booster (TDap): Unknown Date of Pneumonia Vaccine: Dec 05, 2018 Date of Influenza Vaccine: Aug 04, 2019 Seasonal Allergies Seasonal Allergies: No Past Medical History Surgeries: Abdominal, Cardiac, Coronary Stent, Hysterectomy, Orthopedic Respiratory: Chronic Bronchitis, COPD, Emphysema, Pneumonia Currently Using CPAP: No Currently Using BIPAP: No Cardiac: Angina, Chronic Edema/Swelling, Coronary Artery Disease, Heart Attack, Heart Murmur, High Cholesterol, Hypertension, Peripheral Vascular, Valvular Heart Disease Neurological: Neuropathy, Traumatic Brain Injury Reproductive: No Sexually Transmitted Disease: No HIV/AIDS: No Female Reproductive Disorders: Denies Hysterectomy, Menopausal Gastrointestinal: Colitis, Gastroesophageal Reflux, Crohns Disease, Ulcer Musculoskeletal: Arthritis, Chronic Back Pain, Fractures Loss of Vision: Right Hearing Impairment: Denies Cancer: Skin, Ovarian Did You Recieve Any Treatments: Yes What Type of Treatment Did You: Surgical Intervention Psychosocial: Sleep Difficulties, Anxiety, PTSD, Bipolar, Depression History of 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) Family History Aortic valve disorder 19 MOTHER Cardiovascular disease 19 MOTHER FH: breast cancer G8 SISTER FH: prostate cancer 19 FATHER Myasthenia gravis G8 SISTER Psychosocial problem G8 SISTER No Pertinent Family Hx T HIP LONG HISTORY OF BENZODIAZEPINE AND OPIATE ABUSE, AND HAS BEEN PRESCRIBED HYDROCODONE, MORPHINE, OPANA AND OXYMORPONE, WELL XANAX PT HAS OVERDOSED MULTIPLE TIMES PT HAS HISTORY OF MULTIPLE "FALLS" WELL, WHICH HAVE CAUSED INTRACRANIAL BLEED 04/25/19--TREATED NON-SURGICALLY PT HAS ALSO HAD RIGHT HIP FRACTURE 08/03/18 Review of Systems ROS-Unable to Obtain: intubated Constitutional: see HPI Physical Exam Physical Exam Vital Signs Vital Signs - First Documented 11/15/19 06:59 FiO2 40 Capillary Refill : Less Than 3 Seconds Height, Weight, BMI Height: 5'0" Weight: 90lbs. 7.0oz. 41.474715ss; 17.00 BMI Method:Stated General Appearance: Chronically ill, Cachetic, Other (sedated and intubated) Eyes: Right Eye Normal Inspection, Right Eye PERRL HEENT: Other (intubated) Neck: Normal Inspection Respiratory: No Accessory Muscle Use, No Respiratory Distress, Crackles, Decreased Breath Sounds Cardiovascular: No Edema, No Gallop, No JVD, No Murmur, Normal Peripheral Pulses, Tachycardia Gastrointestinal: Normal Bowel Sounds, No Organomegaly, No Pulsatile Mass, Soft Back: Normal Inspection Extremity: Normal Capillary Refill, Normal Inspection, No Pedal Edema Neurologic/Psychiatric: Other (intubated) Skin: Normal Color, Warm/Dry Lymphatic: No Adenopathy Results Results/Procedures Labs Laboratory Tests 11/15/19 05:44 Patient resulted labs reviewed. Assessment/Plan Admission Diagnosis Assessment: Acute on chronic respiratory failure requiring intubation upon arrival to ER Hypercapnia with respiratory acidosis Pneumonia placed on Zosyn Acute herpes zoster right chest wall placed on Acyclovir Exacerbation of COPD with hypoxia placed on IV steroids Chronic oxygen dependence Confusion chronic Frail status with cachexia Continued current smoker Plan: Intubated PNA treatment IV steroids Acyclovir Appreciate Dr. Walker Very poor prognosis given BMI of 19 and just overall severity of her medical problems and I suggested DNR last admit when she was DC Admission Status: Inpatient Order (span 2 midnights) Reason for Inpatient Admission: intubated Diagnosis/Problems Diagnosis/Problems (1) Acute on chronic respiratory failure with hypercapnia Status: Acute (2) Ventilator dependence (3) Herpes zoster (4) Poor prognosis (5) COPD exacerbation Status: Acute (6) Cachexia Status: Acute (7) Pneumonia Status: Acute (8) Smoker Status: Acute (9) HTN (hypertension) Status: Chronic (10) CAD (coronary artery disease) Status: Chronic (11) HX CROHN'S/DIARRHEA SINDY GALE DO Nov 15, 2019 12:09
[2019-11-15] MEDS: inSUlin ASPART (NovoLOG) 1 UNIT/0.01 ML (CHARGE PER UNIT) SC SCH ×3 (13:26→23:20)
[2019-11-15] MEDS: methylPREDNISolone 40 MG/ML (Solu-MEDROL) VIAL IV SCH ×3 (13:38→23:42)
[2019-11-15] MEDS: RT-ALBUTEROL/IPRATROPIUM 3 ML (DUONEB) VIAL INH SCH ×3 (14:45→22:13)
[2019-11-15] MEDS: ACYCLOVIR INJECTION 800 MG in NS (IVPB) 250 ML IV SCH ×2 (15:14→22:14)
[2019-11-15] MEDS: PIPERACILLIN/TAZOBACTAM (BULK) 4.5 GM in NS (IVPB) 100 ML IV SCH ×2 (15:14→23:42)
--- NOTE | 2019-11-15 16:54 | NUR ---
Dr. Walker notified on pt condition et updates given
[2019-11-15] MEDS: HALOPERIDOL 5 MG/ML (HALDOL) AMP IV SCH ×2 (17:11→23:42)
[2019-11-15] MEDS: NOREPINEPHRINE 4 MG/250 ML NS 250 ML IV SCH (20:58)
[2019-11-15] MEDS: PANTOPRAZOLE 40 MG (PROTONIX) VIAL IV SCH (20:59)
[2019-11-15] MEDS ORDERED: ENOXAPARIN 30 MG/0.3 ML (LOVENOX) SYR SC SCH (21:00)
[2019-11-15] MEDS ORDERED: VANCOMYCIN 500 MG/NS 100 ML IVPB IV SCH ×2 (21:00)
--- NOTE | 2019-11-15 22:21 | Procedure/Intervention Note ---
Procedures/Interventions Lumen: triple (7 Lithuanian 16 cm) Central Line Procedure: betadine prep (chlorhexidine prep), sterile drapes applied, sterile dressing applied Position: internal jugular (R) Anesthesia: Lidocaine Volume Anesthetic (ccs): 3 Complications: none Post Position: sutured, good blood return, position confirmed w/ CXR Patient was intubated and sedated when I arrived. Patient was unable to maintain blood pressure on a peripheral Levophed drip today so we were asked to start a central line. Right IJ was observed under ultrasound guidance and wallet had good anatomy her right internal jugular was very dry and collapsed completely. We placed her in Trendelenburg and donned the usual sterile gear and sterile jael ping. We then clean the site thoroughly with chlorhexidine and allowed to dry and flush the central catheter. We accessed the internal jugular on first attempt under ultrasound guidance. A guidewire easily passed. A small jennifer in the skin was made and then the introducer needle was removed. The dilator was passed and removed. The central catheter was threaded central lumen over the guidewire and held in place at 12.5 cm. We removed the guidewire and no ectopy was seen on the monitor at any point. We then sutured the central catheter in place 2 different points and placed the sterile dressing with bio gel provided in the kit. Patient tolerated the procedure very well. Chest x-ray was reviewed demonstrating good placement of the central catheter with the tip overlying the shadow of the SVC just superior to the right atria. It does not cross the midline. No evidence of pneumothorax or other complications. Date of ETT Placement: Nov 15, 2019 Time of ETT Placement: 0645 Tube Size: 8.00 ANA CRISTINA PATEL Nov 15, 2019 22:21
[2019-11-16] VITALS (29 sets, daily range): BP systolic 94–153; BP diastolic 53–96
[2019-11-16] MEDS: RT-ALBUTEROL/IPRATROPIUM 3 ML (DUONEB) VIAL INH SCH ×6 (02:16→21:55)
[2019-11-16 02:57] LABS: BASOPHILS % (AUTO) 0 % (0-10); EOSINOPHILS % (AUTO) 0 % (0-10); HEMATOCRIT 30 % (35-52); HEMOGLOBIN 9.6 G/DL (11.5-16.0); LYMPHOCYTES # (AUTO) 0.8 X 10^3 (1.0-4.0); LYMPHOCYTES % (AUTO) 8 % (12-44); MEAN CORPUSCULAR HEMOGLOBIN 30 PG (25-34); MEAN CORPUSCULAR HGB CONC 33 G/DL (32-36); MEAN CORPUSCULAR VOLUME 92 FL (80-99); MEAN PLATELET VOLUME 9.1 FL (7.4-10.4); MONOCYTES # (AUTO) 0.5 X 10^3 (0.0-1.0); MONOCYTES % (AUTO) 5 % (0-12); NEUTROPHILS # (AUTO) 8.8 X 10^3 (1.8-7.8); NEUTROPHILS % (AUTO) 87 % (42-75); PLATELET COUNT 219 10^3/uL (130-400); RED CELL DISTRIBUTION WIDTH 14.7 % (10.0-14.5); WHITE BLOOD COUNT 10.1 10^3/uL (4.3-11.0)
[2019-11-16 03:18] LABS: BUN/CREATININE RATIO 17; CALCIUM 7.6 MG/DL (8.5-10.1); CARBON DIOXIDE 29 MMOL/L (21-32); CHLORIDE 91 MMOL/L (98-107); CREATININE SERUM 0.66 MG/DL (0.60-1.30); GFR ESTIMATED > 60; GLUCOSE 168 MG/DL (70-105); MAGNESIUM 1.7 MG/DL (1.6-2.4); PHOSPHORUS 2.7 MG/DL (2.3-4.7); POTASSIUM 2.9 MMOL/L (3.6-5.0); SODIUM 134 MMOL/L (135-145)
[2019-11-16] MEDS: POTASSIUM CL 10MEQ/50ML IVPB 50 ML IV SCH ×12 (03:21→19:48)
[2019-11-16] MEDS: MAGNESIUM 1 GM/100 ML IVPB 100 ML IV SCH ×3 (03:22→03:33)
[2019-11-16] MEDS: inSUlin ASPART (NovoLOG) 1 UNIT/0.01 ML (CHARGE PER UNIT) SC SCH ×4 (03:22→23:04)
[2019-11-16] MEDS: KCL 20 MEQ TAB (K-DUR) PO SCH (03:22)
[2019-11-16 03:54] LABS: ABG BASE EXCESS 10.6 MMOL/L (-2.5-2.5); ABG OXYGEN SATURATION 93 % (94-100); ABG PCO2 42 MMHG (35-45); ABG PH 7.52 (7.37-7.43); ABG PO2 66 MMHG (79-93); ABG TCO2 35.6 MMOL/L (21.0-31.0)
[2019-11-16 03:55] LABS: ALLENS TEST YES-POS; INSPIRED O2 35%; VENTILATOR YES
[2019-11-16] MEDS: HALOPERIDOL 5 MG/ML (HALDOL) AMP IV SCH ×4 (05:15→23:04)
[2019-11-16] MEDS: methylPREDNISolone 40 MG/ML (Solu-MEDROL) VIAL IV SCH ×4 (05:15→23:04)
[2019-11-16] MEDS: LACTATED RINGERS 1,000 ML IV SCH ×4 (05:16→23:30)
[2019-11-16] MEDS: ACYCLOVIR INJECTION 800 MG in NS (IVPB) 250 ML IV SCH (05:16)
--- NOTE | 2019-11-16 05:24 | Pulmonary Progress Note ---
Subjective Time Seen by a Provider: 05:20 Subjective/Events-last exam Sedated on vent Sepsis Event Evaluation Height, Weight, BMI Height: 5'0" Weight: 90lbs. 7.0oz. 41.491759rl; 19.76 BMI Method:Stated Focused Exam Lactate Level 11/15/19 05:44: Lactic Acid Level 1.02 Time of Focused Exam: 07:00 Exam Exam Vital Signs Date Time Temp Pulse Resp B/P (MAP) Pulse Ox O2 Delivery O2 Flow Rate FiO2 11/16/19 05:00 84 27 117/66 (83) 94 Mechanical Ventilator 35.00 11/16/19 03:35 37.0 Mechanical Ventilator 35.00 11/16/19 03:35 93 Mechanical Ventilator 35 11/16/19 03:00 92 23 103/53 (70) 92 Mechanical Ventilator 35.00 11/16/19 02:16 93 25 94 35 11/16/19 02:00 85 23 122/60 (80) 94 Mechanical Ventilator 35.00 11/16/19 01:00 90 21 123/70 (87) 93 Mechanical Ventilator 35.00 11/16/19 00:43 93 11/15/19 23:50 92 Mechanical Ventilator 35 11/15/19 23:45 36.9 Mechanical Ventilator 35.00 11/15/19 23:00 98 20 114/65 (81) 91 Mechanical Ventilator 35.00 11/15/19 22:13 80 25 95 35 11/15/19 22:00 86 15 88/50 (63) 93 Mechanical Ventilator 35.00 11/15/19 21:00 82 24 100/63 (75) 93 Mechanical Ventilator 35.00 11/15/19 20:00 91 Mechanical Ventilator 35 11/15/19 19:49 106/67 Mechanical Ventilator 35.00 11/15/19 19:48 11/15/19 19:45 36.7 83 24 106/67 (80) 91 Mechanical Ventilator 35.00 11/15/19 19:29 36.7 11/15/19 19:17 81 24 97 35 11/15/19 19:00 92 23 101/57 (72) 97 Mechanical Ventilator 35.00 11/15/19 18:43 89 11/15/19 18:04 89 23 122/63 (82) 89 Mechanical Ventilator 50.00 11/15/19 17:02 92 24 88/50 (63) 97 Mechanical Ventilator 50.00 11/15/19 16:00 100 Mechanical Ventilator 50 11/15/19 16:00 37.3 11/15/19 16:00 90 23 75/45 (55) 97 Mechanical Ventilator 50.00 11/15/19 15:00 82 24 81/47 (58) 95 Mechanical Ventilator 50.00 11/15/19 14:46 73 24 95 50 11/15/19 14:05 Mechanical Ventilator 50 11/15/19 14:00 74 23 92/57 (69) 94 Mechanical Ventilator 50.00 11/15/19 13:00 79 23 99/52 (68) 95 Mechanical Ventilator 50.00 11/15/19 12:28 94 11/15/19 12:00 87 23 118/68 (85) 99 Mechanical Ventilator 50.00 11/15/19 11:13 135/90 11/15/19 11:00 98 23 135/90 (105) 99 Mechanical Ventilator 50.00 11/15/19 10:43 103 11/15/19 10:36 103 24 100 50 11/15/19 10:00 105 27 109/63 (78) 96 Mechanical Ventilator 50.00 11/15/19 09:51 107 24 95/56 100 Mechanical Ventilator 11/15/19 06:59 99 24 93 40 11/15/19 06:01 99 Nasal Cannula 3.00 11/15/19 05:38 97 Nasal Cannula 3.00 11/15/19 05:38 35.9 91 24 168/81 (110) 97 Nasal Cannula 3.00 I & O 11/16/19 07:00 Intake Total 5961 ml Output Total 3150 ml Balance 2811 ml Height & Weight Height: 5'0" Weight: 90lbs. 7.0oz. 41.962813zj; 19.76 BMI Method:Stated General Appearance: Chronically ill, Cachetic, Other (sedated and intubated) HEENT: Other (intubated) Neck: Normal Inspection Respiratory: No Accessory Muscle Use, No Respiratory Distress, Crackles, Decreased Breath Sounds Cardiovascular: No Edema, No Gallop, No JVD, No Murmur, Normal Peripheral Pulses, Tachycardia Capillary Refill: Less Than 3 Seconds Peripheral Pulses: 1+ Dorsalis Pedis (R), 1+ Left Dors-Pedis (L), 1+ Radial Pulses (R), 1+ Radial Pulses (L) Extremity: Normal Capillary Refill, Normal Inspection, No Pedal Edema Neurologic/Psychiatric: Other (intubated) Skin: Normal Color, Warm/Dry Lymphatic: No Adenopathy Results Lab Laboratory Tests 11/15/19 05:44 11/16/19 02:54 Assessment/Plan Assessment/Plan Acute respiratory failure -Vent -Decrease RR to 16 repeat ABG 1hr after change. -Duoneb Q 4 -Solumedrol 40 IV Q 6 MRSA pneumonia - present on admission -Continue Zosyn x 10-14 days -Await sensitivities - D/C vanco -Await greer cultures Hypotension -IVF -Levophed - is back on CHF -S/P lasix -Check echo Herpes Zoster to right chest and back -Acyclovir Hypomag, hypokalemia -replace Hyponatremia -Monitor HX of Opiate and Benzo abuse NSTEMI with hx of CAD -Cardiology following -trend troponins KATARZYNA MOJICA DO Nov 16, 2019 05:24
[2019-11-16] MEDS ORDERED: methylPREDNISolone 40 MG/ML (Solu-MEDROL) VIAL IV SCH (06:00)
--- NOTE | 2019-11-16 06:41 | Diagnostic Imaging Report ---
EXAMINATION: Chest 1 view INDICATION: Central line placement. COMPARISON: 11/15/2019 at 6:54 AM FINDINGS: There has been interval placement of a right internal jugular central line with the tip overlying the upper SVC. The remaining support devices appear stable in configuration. There is stable mildly prominent interstitial markings, greatest in the perihilar regions. No focal consolidations. No large pneumothorax or pleural effusions. Stable cardiac silhouette. IMPRESSION: 1. Interval placement of a right internal jugular central line with the tip overlying the upper SVC. No pneumothorax. 2. Stable prominent interstitial markings in the lungs, which may represent edema or infection. Dictated by: Dictated on workstation # [id number]
[2019-11-16] MEDS: PANTOPRAZOLE 40 MG (PROTONIX) VIAL IV SCH (08:07)
[2019-11-16] MEDS: PIPERACILLIN/TAZOBACTAM (BULK) 4.5 GM in NS (IVPB) 100 ML IV SCH ×3 (08:07→23:04)
--- NOTE | 2019-11-16 08:16 | Physical Therapy Progress Note ---
Therapy Progress Note Patient is currently sedated and on mechanical ventilator. PT will monitor patient status and initiate treatment when patient is medically stable and able to actively participate with skilled therapy. NIDA MYLES PT Nov 16, 2019 08:16
[2019-11-16 08:52] LABS: ABG BASE EXCESS 9.5 MMOL/L (-2.5-2.5); ABG OXYGEN SATURATION 92 % (94-100); ABG PCO2 36 MMHG (35-45); ABG PH 7.56 (7.37-7.43); ABG PO2 58 MMHG (79-93); ABG TCO2 33.7 MMOL/L (21.0-31.0)
[2019-11-16 08:54] LABS: ALLENS TEST YES-POS; INSPIRED O2 35%; PATIENT TEMP 36.7; VENTILATOR YES
--- NOTE | 2019-11-16 09:19 | Diagnostic Imaging Report ---
INDICATION: Dyspnea. Time of exam: 8:53 AM Correlation is made with prior chest from 11/15/2019. ET tube, NG tube and right-sided line remain in place. Heart is enlarged but stable. There is some mild central congestion but no overt failure. No effusion or pneumothorax is seen. IMPRESSION: Stable chest since exam one day earlier. Dictated by: Dictated on workstation # [id number]
--- NOTE | 2019-11-16 09:29 | Occ Therapy Progress Note ---
Therapy Progress Note Pt currently on mechanical ventilation. OT to eval/ treat when pt medically stable and able to participate in skilled therapy sessions. CATRINA NINO OTR Nov 16, 2019 09:29
[2019-11-16] MEDS ORDERED: GBPN600T PO (10:09)
[2019-11-16] MEDS ORDERED: AMLO5TAB9 PO (10:09)
[2019-11-16] MEDS ORDERED: ALPR0.5T7 PO (10:09)
[2019-11-16] MEDS ORDERED: SPIR100T PO (10:09)
[2019-11-16] MEDS ORDERED: FLUT1DIS27 IH (10:09)
[2019-11-16] MEDS ORDERED: ACYC800T PO (10:09)
[2019-11-16] MEDS ORDERED: ALBU2.5V4 NEB (10:09)
[2019-11-16] MEDS ORDERED: GABA-488 PO (10:09)
[2019-11-16] MEDS ORDERED: HYDR-3812 PO (10:09)
[2019-11-16] MEDS ORDERED: VITA-272 PO (10:38)
[2019-11-16] MEDS ORDERED: POTA10CA43 PO (10:38)
[2019-11-16] MEDS ORDERED: CHOL20002 PO (10:38)
[2019-11-16] MEDS ORDERED: FURO40TA4 PO (10:38)
--- NOTE | 2019-11-16 10:46 | NUR ---
CALLED AND SPOKE WITH THE PATIENTS SISTER RONNIE ABOUT MEDICATIONS. I WENT OVER THE EXT MED HX WITH HER WELL THE LIST I HAD FAXED OVER FROM [facility]. SHE IS PAST DUE FOR REFILL ON SEVERAL MEDICATIONS, A MAJORITY OF THEM BEING NEW SCRIPTS ORDERED AT HE DISCHARGE IN SEPTEMBER. SISTER STATES THEY HAVE BEEN HAVING TROUBLE GETTING REFILLS ON THEM BUT ALSO HAVE NOT BEEN ABLE TO AFFORD THEM. SHE WAS PRESCRIBED BUDESONIDE AND DUONEB AT HER LAST DISCHARGE, RONNIE STATES SHE HAS NOT BEEN USING THEM. THEY HAVE WENT BACK TO THE [facility] AND SHE TRIES TO GET HER TO DO IT REGULARLY. SHE STATES SHE DOES USUALLY USE IT IN THE AM BUT NOT THE OTHER TWO TIMES A DAY EVERYDAY. SHE IS PAST DUE FOR REFILL ON THE FOLLOWING, I NOTED DATES ON THE MED REC: 09-11-19 GABAPENTIN 600MG TID #90 09-10-19 LASIX 40MG Q48H #15 (ON [facility] LIST DAILY, HOWEVER RONNIE STATES THEY WERE DOING IT Q48 BEFORE THEY RAN OUT) 09-10-19 POTASSIUM 10MEQ Q48H #15 (ON [facility] LIST DAILY HOWEVER RNONIE STATES THEY WERE DOING IT Q48H BEFORE THEY RAN OUT. 09-10-19 AMLODIPINE 5MG DAILY #30 09-10-19 SPIRONOLACTONE 100MG DAILY #30 09-09-19 ADVAIR 500 #1 ALSO ON THE LIST FROM [facility] WAS SINGULAIR 10MG AND REMERON 15MG THESE HAVE NOT BEEN FILLED SINCE APRIL ACCORDING TO THE EXT MED HX AND WERE NOT REPORTED BY SISTER RONNIE AT THE PATIENTS LAST ADMISSION. I DID NOT INCLUDE THEM ON THE MED REC THIS TIME BUT DID GIVE THE NAMES TO THE PATIENT'S SISTER TO ADDRESS WITH PCP AT A LATER TIME. IN ADDITION TO WHAT IS ON THE LIST FROM [facility] THE PATIENT WAS PRESCRIBED 7 DAYS OF A BREAKTHROUGH GABAPENTIN SCRIPT AND ACYCLOVIR FROM THE ED THAT I ADDED TO THE MED REC AT THIS TIME. I REMOVED LISINOPRIL 10MG FROM THE MED REC AT THIS TIME, IT HAS NOT BEEN FILLED SINCE 07-20-19 #30 AND IS NOT ON THE LIST FROM [facility]. [facility] HAS GAS X AND FISH OIL ON IT, RONNIE STATES THE PATIENT HAS NOT BEEN TAKING THEM. OTC MEDS SHE DOES TAKE: ASPIRIN 325MG DAILY VITAMIN D 2000 UNITS 3 DAILY VITAMIN E DAILY
--- NOTE | 2019-11-16 11:06 | NUR ---
Pt is Advent and would usually want Communion if not on the vent.
--- NOTE | 2019-11-16 11:52 | NUR ---
"Received dietary consult regarding pt's vent status. Est. kcal needs: 1447-4437 kcal | 25-30 kcal/kg Est. Pro needs: 50-60 g Pro/kg | 1.0-1.2 g Pro/kg Given pt current condition, would recommend the following TF if pt is to remain intubated more than 3 days: Jevity 1.5 at goal rate of 40ml/hr. Begin at 10ml/hr and increase by 10 ml q6h as tolerated. Monitor residuals for tolerance. At goal rate, provides 1440 kcal (29 kcal/kg); 61 g Pro (1.2 g Pro/kg); and 729 ml free water. Flush with 75 ml H2O q4h for hydration status. With flushes, provides 1179 ml free water. Will continue to follow and reassess as pt needs and status change. Eduardo Carranza MS, RD, LD [phone]"
--- NOTE | 2019-11-16 12:02 | Progress Note - Hospitalist ---
JOYA ORTA,MED STUDENT 11/16/19 1202: Subjective HPI/CC On Admission Date Seen by Provider: Nov 16, 2019 Time Seen by Provider: 07:46 CC: Respiratory failure with chronic respiratory failure HPI: This is a 69yoWF clinic patient of [facility] who has h/o COPD severe type O2 dependent with multiple hospital stays in the past who continues to smoke who presents to the ER with dyspnea. Patient required intubation when arrived due to acidosis of respiratory source. Patient has acute herpes zoster on right breast dermatome and will be covered with IV Acyclovir. Appreciate Dr Walker consultation. Subjective/Events-last exam Pt intubated and sedated. ET tube, triple lumen catheter in place. Pt stirs lightly to touch. Not accompanied by family in room. Conferred with nurse, no concerns at this time. Focused Exam Lactate Level 11/15/19 05:44: Lactic Acid Level 1.02 Time of Focused Exam: 07:00 Objective Exam Vital Signs Vital Signs Date Time Temp Pulse Resp B/P (MAP) Pulse Ox O2 Delivery O2 Flow Rate FiO2 11/16/19 11:27 37.0 89 93 35 11/16/19 11:00 22 113/53 (73) Mechanical Ventilator 35.00 Capillary Refill : Less Than 3 Seconds General Appearance: Thin, Other (Sedated) HEENT: Moist Mucous Membranes, Other (ET tube, NG in place ) Neck: Non Tender, Supple, Other (Triple lumen in place ) Respiratory: No Accessory Muscle Use, No Respiratory Distress, Crackles (diff usely, obfuscated by vent ) Cardiovascular: No Edema, No Gallop, No Murmur, Tachycardia Gastrointestinal: No Organomegaly, Soft; No Mass Skin: Normal Color, Warm/Dry Results/Procedures Lab Laboratory Tests 11/16/19 02:54 Patient resulted labs reviewed. Assessment/Plan Assessment and Plan Assess & Plan/Chief Complaint Assessment Acute on chronic respiratory failure hypercapnia hypokalemia hypomagnesemia Anemia Sputum cx positive for p. aeruginosa Plan Continue resp support Continue IVF, antibiotics, DVT/PE prophylaxis, serial labs including ABG, CXR Prognosis guarded, pt resuscitation status should be evaluated with family Thank you Dr. Walker for providing support Clinical Quality Measures DVT/VTE Risk/Contraindication: Risk Factor Score Per Nursin RFS Level Per Nursing on Admit: 4+=Very High SOPHIA WHITLEY DO 11/16/192108: Subjective Subjective/Events-last exam Pt maintained on intubation. ABG drawn awaiting results. KCl supplement IV will be given. Responding a bit. Acyclovir renal dose now. Reviewed previous hospital course, found Pt to be a hospice candidate at that time, now she is intubated. Objective Exam General Appearance: No Apparent Distress, WD/WN, Chronically ill, Cachetic, Thin Respiratory: Crackles (diffusely, obfuscated by vent ), Decreased Breath Sounds, Other (on vent) Assessment/Plan Assessment and Plan Assess & Plan/Chief Complaint Assessment: Acute on chronic respiratory failure requiring intubation upon arrival to ER still maintained on vent Hypercapnia with respiratory acidosis Pneumonia placed on Zosyn Acute herpes zoster right chest wall placed on Acyclovir Exacerbation of COPD with hypoxia placed on IV steroids Chronic oxygen dependence Confusion chronic Frail status with cachexia Continued current smoker Plan: Intubated PNA treatment IV steroids Acyclovir Appreciate Dr. Walker Very poor prognosis given BMI of 19 and just overall severity of her medical problems and I suggested DNR last admit when she was DC Diagnosis/Problems Diagnosis/Problems (1) Acute on chronic respiratory failure with hypercapnia Status: Acute (2) Ventilator dependence (3) Smoker Status: Acute (4) Poor prognosis (5) HX CROHN'S/DIARRHEA (6) Cachexia Status: Acute (7) CHF (congestive heart failure) Status: Acute (8) COPD exacerbation Status: Acute Supervisory-Addendum Brief Verification & Attestation Participated in pt care: history, MDM, physical Personally performed: exam, history, MDM, supervision of care Care discussed with: Medical Student Procedures: n/a Results interpretation: Verified all documentation Verification and Attestation of Medical Student E/M Service A medical student performed and documented this service in my presence. I reviewed and verified all information documented by the medical student and made modifications to such information, when appropriate. I personally performed the physical exam and medical decision making. Sophia Whitley, Nov 16, 2019,21:09 JOYA ORTA,MED STUDENT Nov 16, 2019 12:02 SOPHIA WHITLEY DO Nov 16, 2019 21:09
[2019-11-16] MEDS: LORazepam INJ 2 MG/ML (ATIVAN) VIAL IVP PRN ×2 (13:20→21:19)
[2019-11-16] MEDS: PROPOFOL DRIP (ICU) 100 ML IV SCH ×2 (13:25→18:11)
[2019-11-16] MEDS: NOREPINEPHRINE 4 MG/250 ML NS 250 ML IV SCH (14:35)
[2019-11-16] MEDS: ACYCLOVIR INJECTION 500 MG in NS (IVPB) 100 ML IV SCH ×2 (14:35→20:57)
[2019-11-16] MEDS: DexMEDEtomidine 250 ML DRIP 250 ML IV SCH (16:01)
[2019-11-16] MEDS: fentaNYL INJECTION 1,250 MCG in NS (IVPB) 250 ML IV SCH (16:04)
[2019-11-16 16:55] LABS: BUN/CREATININE RATIO 15; CALCIUM 7.7 MG/DL (8.5-10.1); CARBON DIOXIDE 28 MMOL/L (21-32); CHLORIDE 95 MMOL/L (98-107); CREATININE SERUM 0.54 MG/DL (0.60-1.30); GFR ESTIMATED > 60; GLUCOSE 117 MG/DL (70-105); MAGNESIUM 1.8 MG/DL (1.6-2.4); PHOSPHORUS 1.7 MG/DL (2.3-4.7); POTASSIUM 3.5 MMOL/L (3.6-5.0); SODIUM 133 MMOL/L (135-145)
[2019-11-16] MEDS: ENOXAPARIN 40 MG/0.4 ML (LOVENOX) SYR SC SCH (19:48)
[2019-11-17] VITALS (31 sets, daily range): BP systolic 87–167; BP diastolic 51–93
[2019-11-17] MEDS: PROPOFOL DRIP (ICU) 100 ML IV SCH ×2 (00:10→22:30)
[2019-11-17] MEDS: RT-ALBUTEROL/IPRATROPIUM 3 ML (DUONEB) VIAL INH SCH ×5 (01:11→21:51)
[2019-11-17] MEDS: LORazepam INJ 2 MG/ML (ATIVAN) VIAL IVP PRN (01:45)
[2019-11-17 02:58] LABS: BASOPHILS % (AUTO) 0 % (0-10); EOSINOPHILS % (AUTO) 0 % (0-10); HEMATOCRIT 30 % (35-52); HEMOGLOBIN 9.9 G/DL (11.5-16.0); LYMPHOCYTES # (AUTO) 0.6 X 10^3 (1.0-4.0); LYMPHOCYTES % (AUTO) 3 % (12-44); MEAN CORPUSCULAR HEMOGLOBIN 30 PG (25-34); MEAN CORPUSCULAR HGB CONC 34 G/DL (32-36); MEAN CORPUSCULAR VOLUME 91 FL (80-99); MEAN PLATELET VOLUME 9.9 FL (7.4-10.4); MONOCYTES # (AUTO) 0.5 X 10^3 (0.0-1.0); MONOCYTES % (AUTO) 3 % (0-12); NEUTROPHILS # (AUTO) 17.1 X 10^3 (1.8-7.8); NEUTROPHILS % (AUTO) 94 % (42-75); PLATELET COUNT 216 10^3/uL (130-400); RED CELL DISTRIBUTION WIDTH 15.2 % (10.0-14.5); WHITE BLOOD COUNT 18.2 10^3/uL (4.3-11.0)
[2019-11-17 03:12] LABS: ABG BASE EXCESS 6.1 MMOL/L (-2.5-2.5); ABG OXYGEN SATURATION 93 % (94-100); ABG PCO2 35 MMHG (35-45); ABG PH 7.54 (7.37-7.43); ABG PO2 64 MMHG (79-93); ABG TCO2 30.2 MMOL/L (21.0-31.0); ALLENS TEST YES-POS; INSPIRED O2 40%; PATIENT TEMP 36.6; VENTILATOR YES
[2019-11-17 03:13] LABS: BUN/CREATININE RATIO 15; CALCIUM 7.8 MG/DL (8.5-10.1); CARBON DIOXIDE 24 MMOL/L (21-32); CHLORIDE 97 MMOL/L (98-107); CREATININE SERUM 0.52 MG/DL (0.60-1.30); GFR ESTIMATED > 60; GLUCOSE 117 MG/DL (70-105); MAGNESIUM 1.6 MG/DL (1.6-2.4); PHOSPHORUS 2.9 MG/DL (2.3-4.7); POTASSIUM 3.6 MMOL/L (3.6-5.0); SODIUM 134 MMOL/L (135-145)
[2019-11-17 03:18] LABS: BAND NEUTROPHILS 5 %; LYMPHOCYTES % (MANUAL) 4 %; MONOCYTES % (MANUAL) 6 %; NEUTROPHILS % (MANUAL) 85 %; RBC MORPH NORMAL
[2019-11-17] MEDS ORDERED: FUROSEMIDE 40 MG/4 ML INJ (LASIX) IVP ONE (04:15)
--- NOTE | 2019-11-17 04:22 | Pulmonary Progress Note ---
Subjective Time Seen by a Provider: 04:19 Subjective/Events-last exam Pt is sedated on ventilator. Sepsis Event Evaluation Height, Weight, BMI Height: 5'0" Weight: 90lbs. 7.0oz. 41.108896hw; 19.76 BMI Method:Stated Focused Exam Lactate Level 11/15/19 05:44: Lactic Acid Level 1.02 Time of Focused Exam: 07:00 Exam Exam Vital Signs Date Time Temp Pulse Resp B/P (MAP) Pulse Ox O2 Delivery O2 Flow Rate FiO2 11/17/19 04:00 105 12 145/77 (99) 95 Mechanical Ventilator 40.00 11/17/19 03:24 36.6 11/17/19 03:23 93 Mechanical Ventilator 40 11/17/19 03:00 101 14 139/79 (99) 95 Mechanical Ventilator 40.00 11/17/19 02:00 100 14 142/68 (92) 94 Mechanical Ventilator 40.00 11/17/19 01:12 96 23 93 40 11/17/19 01:00 92 14 151/84 (106) 95 Mechanical Ventilator 40.00 11/17/19 00:43 103 11/17/19 00:14 Mechanical Ventilator 40.00 11/17/19 00:10 144/86 11/17/19 00:00 96 16 144/86 (105) 96 Mechanical Ventilator 45.00 11/16/19 23:33 36.8 11/16/19 23:32 93 Mechanical Ventilator 45 11/16/19 23:00 98 13 134/82 (99) 93 Mechanical Ventilator 45.00 11/16/19 22:00 95 17 142/71 (94) 92 Mechanical Ventilator 45.00 11/16/19 21:55 94 26 93 45 11/16/19 21:47 Mechanical Ventilator 45.00 11/16/19 21:00 94 17 145/75 (98) 95 Mechanical Ventilator 50.00 11/16/19 20:00 93 Mechanical Ventilator 50 11/16/19 20:00 92 15 144/87 (106) 96 Mechanical Ventilator 50.00 11/16/19 20:00 36.9 11/16/19 19:00 92 15 147/82 (103) 96 Mechanical Ventilator 50.00 11/16/19 18:45 92 11/16/19 18:30 90 26 97 50 11/16/19 18:11 150/94 11/16/19 18:00 93 16 150/94 (112) 96 Mechanical Ventilator 50.00 11/16/19 17:00 94 17 145/95 (112) 95 Mechanical Ventilator 50.00 11/16/19 16:00 92 Mechanical Ventilator 35 11/16/19 16:00 36.8 11/16/19 16:00 97 15 148/80 (102) 94 Mechanical Ventilator 50.00 11/16/19 15:42 Mechanical Ventilator 50.00 11/16/19 15:00 96 16 141/79 (99) 90 Mechanical Ventilator 45.00 11/16/19 14:27 86 21 93 45 11/16/19 14:00 89 17 147/95 (112) 93 Mechanical Ventilator 45.00 11/16/19 13:25 128/70 11/16/19 13:00 94 22 133/70 (91) 96 Mechanical Ventilator 45.00 11/16/19 13:00 96 11/16/19 12:30 Mechanical Ventilator 45.00 11/16/19 12:00 89 19 94/57 (69) 89 Mechanical Ventilator 35.00 11/16/19 12:00 92 Mechanical Ventilator 35 11/16/19 12:00 36.6 11/16/19 11:27 37.0 89 93 35 11/16/19 11:00 93 22 113/53 (73) 91 Mechanical Ventilator 35.00 11/16/19 10:33 84 29 92 35 11/16/19 10:00 92 18 119/79 (92) 93 Mechanical Ventilator 35.00 11/16/19 09:00 92 22 112/60 (77) 91 Mechanical Ventilator 35.00 11/16/19 08:00 95 17 127/66 (86) 93 Mechanical Ventilator 35.00 11/16/19 08:00 92 Mechanical Ventilator 35 11/16/19 07:06 95 27 91 35 11/16/19 07:00 84 11/16/19 07:00 87 27 120/61 (80) 91 Mechanical Ventilator 35.00 11/16/19 06:00 87 19 109/53 (71) 91 Mechanical Ventilator 35.00 11/16/19 05:00 84 27 117/66 (83) 94 Mechanical Ventilator 35.00 I & O 11/17/19 07:00 Intake Total 3465 ml Output Total 1750 ml Balance 1715 ml Height & Weight Height: 5'0" Weight: 90lbs. 7.0oz. 41.582935kr; 19.76 BMI Method:Stated General Appearance: No Apparent Distress, WD/WN, Chronically ill, Cachetic, Thin HEENT: PERRL/EOMI, Other (NO) Neck: Non Tender, Supple, Other (Triple lumen in place ) Respiratory: Crackles (diffusely, obfuscated by vent ), Decreased Breath Sounds, Other (on vent) Cardiovascular: Regular Rate, Rhythm, JVD Capillary Refill: Less Than 3 Seconds Peripheral Pulses: 1+ Dorsalis Pedis (R), 1+ Left Dors-Pedis (L), 1+ Radial Pulses (R), 1+ Radial Pulses (L) Extremity: Normal Capillary Refill, Normal Inspection, No Pedal Edema Neurologic/Psychiatric: Other (intubated) Skin: Normal Color, Warm/Dry Lymphatic: No Adenopathy Results Lab Laboratory Tests 11/15/19 05:44 11/16/19 02:54 11/16/19 04:15 11/17/19 02:51 Assessment/Plan Assessment/Plan Acute respiratory failure -Vent -Start weaning vent today -Give 80mg of Lasix x 1 -KVO IVF -Duoneb Q 4 -Solumedrol 40 IV Q 6 Pseudomonus pneumonia - present on admission -Continue Zosyn x 10-14 days -Await sensitivities - D/C vanco -Await greer cultures Hypotension - resolved CHF - stage 1 diastolic dysfunction - lasix -45-55% Herpes Zoster to right chest and back -Acyclovir Hypomag, hypokalemia -replace Hyponatremia -Monitor HX of Opiate and Benzo abuse NSTEMI with hx of CAD -Cardiology following -trend troponins KATARZYNA MOJICA DO Nov 17, 2019 04:22
[2019-11-17] MEDS: POTASSIUM CL 10MEQ/50ML IVPB 50 ML IV SCH ×9 (04:58→07:58)
[2019-11-17] MEDS: MAGNESIUM 1 GM/100 ML IVPB 100 ML IV SCH ×3 (04:58→05:02)
[2019-11-17] MEDS: KCL 20 MEQ TAB (K-DUR) PO SCH (04:58)
[2019-11-17] MEDS: HALOPERIDOL 5 MG/ML (HALDOL) AMP IV SCH ×3 (04:59→17:33)
[2019-11-17] MEDS: methylPREDNISolone 40 MG/ML (Solu-MEDROL) VIAL IV SCH ×3 (04:59→17:33)
[2019-11-17] MEDS: ACYCLOVIR INJECTION 500 MG in NS (IVPB) 100 ML IV SCH ×3 (05:00→22:30)
--- NOTE | 2019-11-17 05:11 | NUR ---
DR MOJICA AT BEDSIDE, RR TO 10, VT 400, PEEP 5, 40% FIO2. RR TOTAL 15, VT 342, VE 4.99. PK 28 Addendum: 11/17/19 at 0519 by NIDA MORENO RT Amended: Links added.
[2019-11-17] MEDS: inSUlin ASPART (NovoLOG) 1 UNIT/0.01 ML (CHARGE PER UNIT) SC SCH ×3 (05:54→17:42)
--- NOTE | 2019-11-17 05:54 | NUR ---
propofol on hold at this time per dr meek for attempted extubation
[2019-11-17] MEDS: DexMEDEtomidine 250 ML DRIP 250 ML IV SCH (06:08)
--- NOTE | 2019-11-17 06:57 | NUR ---
fentanyl on hold at this time per dr meek for extubation.
[2019-11-17] MEDS: PANTOPRAZOLE 40 MG (PROTONIX) VIAL IV SCH (07:38)
[2019-11-17] MEDS: PIPERACILLIN/TAZOBACTAM (BULK) 4.5 GM in NS (IVPB) 100 ML IV SCH ×2 (07:38→16:52)
[2019-11-17] MEDS ORDERED: LORazepam INJ 2 MG/ML (ATIVAN) VIAL ONE (07:48)
[2019-11-17] MEDS ORDERED: meTOprolol TARTRATE 50 MG (LOPRESSOR) TAB ONE (07:55)
[2019-11-17] MEDS ORDERED: LORazepam INJ 2 MG/ML (ATIVAN) VIAL IVP PRN (08:00)
[2019-11-17] MEDS ORDERED: TROUGH ORDER-PHARMACY XX NR (08:00)
[2019-11-17] MEDS: meTOprolol TARTRATE 50 MG (LOPRESSOR) TAB PO SCH ×2 (08:01→20:25)
[2019-11-17] MEDS ORDERED: PANTOPRAZOLE 40 MG (PROTONIX) VIAL IV SCH (09:00)
--- NOTE | 2019-11-17 09:06 | Diagnostic Imaging Report ---
EXAMINATION: Portable semierect AP chest at 3:56 AM. INDICATION: Dyspnea. FINDINGS: The cardiomegaly and mild pulmonary congestion noted on the prior exam of 11/16/2019 are again evident and no different. In the interval since the previous study, the left hemidiaphragm has become opacified and I suspect that there is now involvement of the left lung base by mild atelectasis/infiltrate and fluid. There may be a small area of pneumonia/atelectasis in the right lung base as well. The mediastinum is not widened. The osseous structures are intact. In the interval since the prior study, the tip of the ET tube has been advanced and the tip now lies approximately 2.6 cm cephalad to the cindy. I would recommend that the tip be retracted 1 cm. The central venous catheter on the right and the NG line seen previously are unchanged in position. IMPRESSION: 1. The appearance of the chest has worsened since the prior study as mild left lower lobe pneumonia/atelectasis and a small left pleural effusion have developed. A followup exam would be recommended for continued evaluation. 2. The ET tube tip should be retracted 1 cm. 3. The report was called to Nini, the patient's nurse Dr. Walker by BETO@ 9:06AM. Dictated by: Dictated on workstation # [id number]
[2019-11-17 09:44] LABS: ABG BASE EXCESS 7.8 MMOL/L (-2.5-2.5); ABG OXYGEN SATURATION 89 % (94-100); ABG PCO2 45 MMHG (35-45); ABG PH 7.47 (7.37-7.43); ABG PO2 60 MMHG (79-93); ABG TCO2 33.1 MMOL/L (21.0-31.0)
[2019-11-17 09:48] LABS: ALLENS TEST YES-POS; INSPIRED O2 30%; PATIENT TEMP 37.2; VENTILATOR YES
--- NOTE | 2019-11-17 10:24 | Occ Therapy Progress Note ---
Therapy Progress Note Pt on mechanical ventilation, will address OT eval/ treat when pt medically stable and able to participate in skilled OT tx sessions. CATRINA NINO OTR Nov 17, 2019 10:24
--- NOTE | 2019-11-17 10:28 | Physical Therapy Progress Note ---
Therapy Progress Note Patient remains sedated and intubated. PT will continue to monitor patient status. NIDA MYLES PT Nov 17, 2019 10:28
[2019-11-17] MEDS ORDERED: PROPOFOL DRIP (ICU) 100 ML IV SCH ×3 (11:20→19:15)
[2019-11-17] MEDS ORDERED: PROPOFOL DRIP (ICU) 100 ML IV ONE (11:21)
--- NOTE | 2019-11-17 11:28 | Progress Note - Hospitalist ---
JOYA ORTA,MED STUDENT 11/17/19 1128: Subjective HPI/CC On Admission Date Seen by Provider: Nov 17, 2019 Time Seen by Provider: 07:46 CC: Respiratory failure with chronic respiratory failure HPI: This is a 69yoWF clinic patient of [facility] who has h/o COPD severe type O2 dependent with multiple hospital stays in the past who continues to smoke who presents to the ER with dyspnea. Patient required intubation when arrived due to acidosis of respiratory source. Patient has acute herpes zoster on right breast dermatome and will be covered with IV Acyclovir. Appreciate Dr Walker consultation. Subjective/Events-last exam Nurses attempting to wean pt off vent when I entered room No longer on sedation, still questionable response to voice/touch/pain Appears to stir and open eyes small amount but did not follow commands Focused Exam Lactate Level 11/15/19 05:44: Lactic Acid Level 1.02 Time of Focused Exam: 07:00 Objective Exam Vital Signs Vital Signs Date Time Temp Pulse Resp B/P (MAP) Pulse Ox O2 Delivery O2 Flow Rate FiO2 11/17/19 10:33 106 27 94 40 11/17/19 10:00 111/66 (81) Mechanical Ventilator 40.00 11/17/19 03:24 36.6 Capillary Refill : Less Than 3 Seconds General Appearance: WD/WN, Chronically ill HEENT: Moist Mucous Membranes, Other (ET tube in place ) Neck: Non Tender, Supple Respiratory: No Accessory Muscle Use, No Respiratory Distress, Wheezing, Other (ventilated ) Cardiovascular: No Edema, No Gallop, No Murmur, Tachycardia Results/Procedures Lab Laboratory Tests 11/17/19 02:51 Patient resulted labs reviewed. Assessment/Plan Assessment and Plan Assess & Plan/Chief Complaint Assessment Acute on chronic respiratory failure hypercapnia hyponatremia hypokalemia - resolved hypomagnesemia Anemia Sputum cx positive for p. aeruginosa Plan Dr. Wlaker attempted to wean pt off vent today, pt became hypertensive and further tachycardic. Will attempt to wean off tomorrow Attempting to contact pts sister about DPoA/DNR/DNI status of pt Continue IVF, antibiotics, DVT/PE prophylaxis, serial labs including ABG, CXR Thank you Dr. Walker for providing support Clinical Quality Measures DVT/VTE Risk/Contraindication: Risk Factor Score Per Nursin RFS Level Per Nursing on Admit: 4+=Very High SOPHIA WHITLEY DO 11/17/192117: Subjective Subjective/Events-last exam Pt still intubated Switched to SIMV Failed extubation Very poor prognosis Extubated herself now reintubating Family reported she did not sign a DNR or Hospice and wants full code and re- intubated Objective Exam General Appearance: Cachetic, Mild Distress Respiratory: No Accessory Muscle Use, No Respiratory Distress, Decreased Breath Sounds, Other (on vent) Assessment/Plan Assessment and Plan Assess & Plan/Chief Complaint Poor prognosis Diagnosis/Problems Diagnosis/Problems (1) Acute on chronic respiratory failure with hypercapnia Status: Acute (2) COPD exacerbation Status: Acute (3) Ventilator dependence Supervisory-Addendum Brief Verification & Attestation Participated in pt care: history, MDM, physical Personally performed: exam, history, MDM, supervision of care Care discussed with: Medical Student Procedures: n/a Results interpretation: Verified all documentation Verification and Attestation of Medical Student E/M Service A medical student performed and documented this service in my presence. I reviewed and verified all information documented by the medical student and made modifications to such information, when appropriate. I personally performed the physical exam and medical decision making. Sophia Whitley, Nov 17, 2019,21:18 JOYA ORTA,MED STUDENT Nov 17, 2019 11:28 SOPHIA WHITLEY DO Nov 17, 2019 21:18
--- NOTE | 2019-11-17 13:00 | NUR ---
Vent alarming, RN to room, RT to follow. PT had self extubated. RT began bagging pt. REPRODUCTIVE SURGEON called. DR Walker to room. Pt placed on Bipap and monitored.
[2019-11-17] MEDS: fentaNYL INJECTION 1,250 MCG in NS (IVPB) 250 ML IV SCH (13:13)
[2019-11-17 13:58] LABS: ABG BASE EXCESS 8.5 MMOL/L (-2.5-2.5); ABG OXYGEN SATURATION 96 % (94-100); ABG PCO2 38 MMHG (35-45); ABG PH 7.53 (7.37-7.43); ABG PO2 77 MMHG (79-93)
[2019-11-17 13:59] LABS: ALLENS TEST YES-POS; INSPIRED O2 30%; PATIENT TEMP 37.1; VENTILATOR NO
[2019-11-17] MEDS ORDERED: morphine INJ 4 MG/ML 1 ML (VIAL/SYRINGE) ONE (16:41)
[2019-11-17] MEDS: morphine INJ 4 MG/ML 1 ML (VIAL/SYRINGE) IVP PRN (16:49)
--- NOTE | 2019-11-17 17:45 | NUR ---
Pt began to have pursed lip, labored breathing, with increased anxiety. This RN to pts room noticed Pt had removed oxygen. 1748 - attempted to call Dr. Walker 1749 - eICU called orders for reintubation as pt refuses the Bipap. Anesthesia Called 1799 - Dr Walker Notified 1814 - anesthesia to room 1821 - 50mg Propofol given 3mg Versed given 80mg SUX given 1822 - Tube in size 8 ETT 23 at the Lip
[2019-11-17] MEDS ORDERED: proPOfol 200 MG/20 ML (DIPRIVAN) VIAL IV ONE (17:52)
[2019-11-17] MEDS ORDERED: NS IV 1000 ML 1,000 ML ONE (18:14)
[2019-11-17] MEDS: fentaNYL 1,250 MCG/NS 250 ML DRIP IV SCH ×4 (18:30→21:40)
[2019-11-17] MEDS ORDERED: fentaNYL INJECTION 100 MCG/2 ML AMP IV PRN (18:30)
--- NOTE | 2019-11-17 18:52 | Progress Note ---
Standard Progress Note Progress Notes/Assess & Plan Date Seen by a Provider: Nov 17, 2019 Time Seen by a Provider: 18:15 Progress/Assessment & Plan 181 - 1851: Called by Evy, supervisory civil engineer, to ICU 1 for intubation per EICU physician. The patient has COPD and self extubated herself this afternoon approximately 1300 as reported by RN. Patient on a nebulizer when we arrived. SaO2 99%. HR 120s. Patient anxious with audible wheezing, decreased breath sounds. I discussed with the patient that we were reinserting the breathing tube and the patient replied, "okay." Brief history obtained from the RN, including the patient has shingles. Patient is NPO, K < 4.0. 3mg Versed, 50mg Propofol, and 80mg Succinylcholine given in her right chest central line. Martin used with grade [address] an 8.0 ett x 1 attempt, easy insertion, atraumatic. Breath sounds equal, however minimal air exchange auscultated, BCR. Positive color change to yellow on etco2 indicator. SaO2 99%. Ett 23 cm at the lip. Reported to RN and RT. RT present and vent settings per EICU. Chest xray ordered. 20g Arterial line placed in patient's right wrist on 2nd attempt. Good waveform noted and pressure reads 145/84. We will be available for further consultation as needed. Focused Exam Lactate Level 11/15/19 05:44: Lactic Acid Level 1.02 Time of Focused Exam: 07:00 STEPHANY LOVE CRNA Nov 17, 2019 18:52
--- NOTE | 2019-11-17 18:53 | Diagnostic Imaging Report ---
INDICATION: Intubation. Time of exam: 6:43 PM Correlation is made with prior chest from earlier the same day. ET tube has tip above the cindy. NG tube passes below the diaphragm. The proximal side-port of the NG tube is at the GE junction and the tube could be advanced. A right IJ line has tip overlying the SVC. There is some infiltrate or atelectasis in the left base, however, overall aeration of the left base has improved since earlier today. Right lung is clear. No effusion or pneumothorax is seen. IMPRESSION: Improved aeration to the left base when compared with examination earlier the same day. Dictated by: Dictated on workstation # [id number]
[2019-11-17] MEDS ORDERED: DexMEDEtomidine 250 ML DRIP 250 ML IV SCH (19:15)
[2019-11-17] MEDS: LACTATED RINGERS 1,000 ML IV SCH (19:37)
[2019-11-17] MEDS ORDERED: MIDAZOLAM 5 MG/5 ML (VERSED) VIAL IJ ONE (19:45)
[2019-11-17] MEDS ORDERED: SUCCINYLCHOLINE INJ 100 MG/5 ML SYR INJ ONE (19:45)
[2019-11-17] MEDS: ENOXAPARIN 40 MG/0.4 ML (LOVENOX) SYR SC SCH (20:25)
[2019-11-17 20:57] LABS: ABG BASE EXCESS 6.3 MMOL/L (-2.5-2.5); ABG OXYGEN SATURATION 94 % (94-100); ABG PCO2 43 MMHG (35-45); ABG PH 7.46 (7.37-7.43); ABG PO2 70 MMHG (79-93); ABG TCO2 31.5 MMOL/L (21.0-31.0)
[2019-11-17 20:58] LABS: ALLENS TEST YES-POS; INSPIRED O2 50%; PATIENT TEMP 36.9; VENTILATOR YES
[2019-11-17] MEDS ORDERED: FAMOTIDINE 20MG/2ML IV (PEPCID) IV SCH (21:00)
[2019-11-18] VITALS (30 sets, daily range): BP systolic 86–170; BP diastolic 56–98
[2019-11-18] MEDS: inSUlin ASPART (NovoLOG) 1 UNIT/0.01 ML (CHARGE PER UNIT) SC SCH ×4 (00:55→17:28)
[2019-11-18] MEDS: PIPERACILLIN/TAZOBACTAM (BULK) 4.5 GM in NS (IVPB) 100 ML IV SCH ×3 (00:55→15:33)
[2019-11-18] MEDS: methylPREDNISolone 40 MG/ML (Solu-MEDROL) VIAL IV SCH ×4 (00:55→17:23)
[2019-11-18] MEDS: HALOPERIDOL 5 MG/ML (HALDOL) AMP IV SCH ×2 (00:55→05:37)
[2019-11-18] MEDS: DexMEDEtomidine 250 ML DRIP 250 ML IV SCH ×2 (00:59→13:21)
[2019-11-18] MEDS: RT-ALBUTEROL/IPRATROPIUM 3 ML (DUONEB) VIAL INH SCH ×6 (02:01→23:11)
[2019-11-18] MEDS: PROPOFOL DRIP (ICU) 100 ML IV SCH ×4 (02:35→20:24)
[2019-11-18 03:15] LABS: BASOPHILS % (AUTO) 0 % (0-10); EOSINOPHILS % (AUTO) 0 % (0-10); HEMATOCRIT 31 % (35-52); HEMOGLOBIN 10.4 G/DL (11.5-16.0); LYMPHOCYTES # (AUTO) 0.6 X 10^3 (1.0-4.0); LYMPHOCYTES % (AUTO) 4 % (12-44); MEAN CORPUSCULAR HEMOGLOBIN 31 PG (25-34); MEAN CORPUSCULAR HGB CONC 34 G/DL (32-36); MEAN CORPUSCULAR VOLUME 92 FL (80-99); MONOCYTES # (AUTO) 0.5 X 10^3 (0.0-1.0); MONOCYTES % (AUTO) 3 % (0-12); NEUTROPHILS # (AUTO) 16.1 X 10^3 (1.8-7.8); NEUTROPHILS % (AUTO) 93 % (42-75); PLATELET COUNT 240 10^3/uL (130-400); RED CELL DISTRIBUTION WIDTH 15.3 % (10.0-14.5); WHITE BLOOD COUNT 17.3 10^3/uL (4.3-11.0)
[2019-11-18 03:16] LABS: ABG OXYGEN SATURATION 98 % (94-100); ABG PCO2 41 MMHG (35-45); ABG PH 7.47 (7.37-7.43); ABG PO2 90 MMHG (79-93); ABG TCO2 30.9 MMOL/L (21.0-31.0)
[2019-11-18 03:17] LABS: ALLENS TEST YES-POS; INSPIRED O2 30%; PATIENT TEMP 37.2; VENTILATOR YES
[2019-11-18 03:32] LABS: BUN/CREATININE RATIO 19; CALCIUM 7.8 MG/DL (8.5-10.1); CARBON DIOXIDE 23 MMOL/L (21-32); CHLORIDE 97 MMOL/L (98-107); CREATININE SERUM 0.57 MG/DL (0.60-1.30); GFR ESTIMATED > 60; GLUCOSE 97 MG/DL (70-105); MAGNESIUM 1.8 MG/DL (1.6-2.4); PHOSPHORUS 3.6 MG/DL (2.3-4.7); POTASSIUM 4.4 MMOL/L (3.6-5.0); SODIUM 133 MMOL/L (135-145); TRIGLYCERIDES 172 MG/DL (<150)
--- NOTE | 2019-11-18 04:58 | Pulmonary Progress Note ---
Subjective Time Seen by a Provider: 07:07 Subjective/Events-last exam Pt was reintubated last night after self extubating. Sepsis Event Evaluation Height, Weight, BMI Height: 5'0" Weight: 90lbs. 7.0oz. 41.319452ej; 19.76 BMI Method:Stated Focused Exam Lactate Level 11/15/19 05:44: Lactic Acid Level 1.02 Time of Focused Exam: 07:00 Exam Exam Vital Signs Date Time Temp Pulse Resp B/P (MAP) Pulse Ox O2 Delivery O2 Flow Rate FiO2 11/18/19 04:20 92 Mechanical Ventilator 30 11/18/19 03:46 37.2 11/18/19 03:00 78 20 166/88 (114) 94 Mechanical Ventilator 30.00 11/18/19 02:35 168/88 11/18/19 02:01 20 97 100 11/18/19 02:00 93 19 170/88 (115) 93 Mechanical Ventilator 30.00 11/18/19 01:58 Mechanical Ventilator 30.00 11/18/19 01:02 Mechanical Ventilator 50.00 11/18/19 01:00 82 11/18/19 01:00 83 16 165/83 (110) 95 Mechanical Ventilator 60.00 11/18/19 00:00 95 Mechanical Ventilator 60 11/18/19 00:00 37.2 11/18/19 00:00 82 13 140/75 (96) 95 Mechanical Ventilator 60.00 11/17/19 23:00 85 17 160/79 (106) 94 Mechanical Ventilator 60.00 11/17/19 22:30 168/84 11/17/19 22:00 83 15 167/83 (111) 94 Mechanical Ventilator 60.00 11/17/19 21:51 20 97 100 11/17/19 21:08 Mechanical Ventilator 60.00 11/17/19 21:00 86 13 158/77 (104) 93 Mechanical Ventilator 50.00 11/17/19 20:25 11/17/19 20:24 Mechanical Ventilator 50.00 11/17/19 20:15 20 97 100 11/17/19 20:00 Mechanical Ventilator 100 11/17/19 20:00 37.0 11/17/19 20:00 79 16 160/75 (103) 97 Mechanical Ventilator 100.00 11/17/19 19:00 100 11/17/19 19:00 94 26 114/63 (80) 98 Mechanical Ventilator 100.00 11/17/19 18:32 Mechanical Ventilator 100.00 11/17/19 18:00 114 32 154/93 (113) 99 Nasal Cannula 4.00 11/17/19 17:00 100 23 124/83 (97) 92 Nasal Cannula 4.00 11/17/19 16:01 Nasal Cannula 4.00 11/17/19 16:00 120 31 142/74 (96) 94 NIV Bilevel 45.00 11/17/19 16:00 92 Nasal Cannula 4.00 11/17/19 16:00 36.5 11/17/19 15:00 108 20 127/73 (91) 95 NIV Bilevel 45.00 11/17/19 14:00 105 15 97/56 (70) 92 NIV Bilevel 45.00 11/17/19 13:58 NIV Bilevel 45.00 11/17/19 13:51 103 16 92 40.00 11/17/19 13:20 111/57 11/17/19 13:15 NIV Bilevel 30.00 11/17/19 13:00 109 11/17/19 13:00 107 18 160/84 (109) 100 Mechanical Ventilator 40.00 11/17/19 12:00 37.2 11/17/19 12:00 92 Mechanical Ventilator 40 11/17/19 12:00 106 18 133/73 (93) 89 Mechanical Ventilator 40.00 11/17/19 11:00 105 16 116/70 (85) 92 Mechanical Ventilator 40.00 11/17/19 10:33 106 27 94 40 11/17/19 10:00 106 17 111/66 (81) 93 Mechanical Ventilator 40.00 11/17/19 09:30 Mechanical Ventilator 40.00 11/17/19 09:00 105 16 102/80 (87) 64 Mechanical Ventilator 30.00 11/17/19 08:01 112 19 94 30 11/17/19 08:00 93 Mechanical Ventilator 30 11/17/19 08:00 112 17 102/69 (80) 95 Mechanical Ventilator 30.00 11/17/19 07:23 102 30 92 30 11/17/19 07:00 101 24 115/63 (80) 93 Mechanical Ventilator 30.00 11/17/19 07:00 105 11/17/19 06:00 96 15 87/51 (63) 88 Mechanical Ventilator 30.00 11/17/19 05:52 Mechanical Ventilator 30.00 11/17/19 05:00 108 11 140/74 (96) 96 Mechanical Ventilator 40.00 I & O 11/18/19 07:00 Intake Total 710 ml Output Total 3450 ml Balance -2740 ml Height & Weight Height: 5'0" Weight: 90lbs. 7.0oz. 41.387793wq; 19.76 BMI Method:Stated General Appearance: Cachetic, Mild Distress, Other (sedated on vent) HEENT: Moist Mucous Membranes, Other (ET tube in place ) Neck: Non Tender, Supple Respiratory: No Accessory Muscle Use, No Respiratory Distress, Decreased Breath Sounds, Other (on vent) Cardiovascular: No Edema, No Gallop, No Murmur, Tachycardia Capillary Refill: Less Than 3 Seconds Peripheral Pulses: 1+ Dorsalis Pedis (R), 1+ Left Dors-Pedis (L), 1+ Radial Pulses (R), 1+ Radial Pulses (L) Extremity: Normal Capillary Refill, Normal Inspection, No Pedal Edema Neurologic/Psychiatric: Other (intubated) Skin: Normal Color, Warm/Dry Lymphatic: No Adenopathy Results Lab Laboratory Tests 11/17/19 02:51 11/18/19 03:07 Assessment/Plan Assessment/Plan Acute respiratory failure -Vent -Pt self extubated yesterday and initially did fine however then went into respiratory distress around 6pm and was reintubated. -Give 40mg of lasix bid -KVO IVF -Duoneb Q 4 -Solumedrol 40 IV Q 6 Pseudomonus pneumonia - present on admission -Continue Zosyn x 10-14 days -Await sensitivities -Add Levaquin until sensativities are finalized. -Will d/w pharmacy about starting Kvng SVNS - D/C vanco -Await greer cultures CHF - stage 1 diastolic dysfunction - lasix 40 mg BID -45-55% HTN and tachycardia -Increase lopressor to 100mg BID Herpes Zoster to right chest and back -Acyclovir Hypomag, hypokalemia -replace Hyponatremia -Monitor HX of Opiate and Benzo abuse NSTEMI with hx of CAD -Cardiology following -trend troponins KATARZYNA MOJICA DO Nov 18, 2019 04:58
[2019-11-18] MEDS: KCL 20 MEQ TAB (K-DUR) PO SCH (05:37)
[2019-11-18] MEDS: MAGNESIUM 1 GM/100 ML IVPB 100 ML IV SCH (05:37)
[2019-11-18] MEDS: POTASSIUM CL 10MEQ/50ML IVPB 50 ML IV SCH (05:37)
[2019-11-18] MEDS ORDERED: FUROSEMIDE 40 MG/4 ML INJ (LASIX) ONE (05:38)
[2019-11-18] MEDS ORDERED: HALOPERIDOL 5 MG/ML (HALDOL) AMP IV PRN (05:45)
[2019-11-18] MEDS: FUROSEMIDE 40 MG/4 ML INJ (LASIX) IVP SCH ×3 (05:47→19:27)
[2019-11-18] MEDS: ACYCLOVIR INJECTION 500 MG in NS (IVPB) 100 ML IV SCH ×3 (05:47→22:14)
[2019-11-18] MEDS: meTOprolol TARTRATE 50 MG (LOPRESSOR) TAB PO SCH ×2 (08:04→20:28)
[2019-11-18] MEDS: PANTOPRAZOLE 40 MG (PROTONIX) VIAL IV SCH (08:04)
[2019-11-18] MEDS: risperiDONE 1 MG (RisperDAL) TAB PO SCH ×2 (08:05→20:28)
--- NOTE | 2019-11-18 08:11 | Diagnostic Imaging Report ---
INDICATION: Dyspnea Upright portable AP view of the chest is obtained. Since the study of one day earlier, there has been slight interval increase in left basilar infiltrate. Endotracheal tube is in place with tip below thoracic inlet. Nasogastric tube passes below the diaphragm. There is no evidence of pneumothorax. IMPRESSION: Mild increasing left basilar infiltrate which may be due to pneumonitis or pneumonia. This could be on the basis of aspiration and clinical correlation would be useful. Dictated by: Dictated on workstation # [id number]
--- NOTE | 2019-11-18 08:55 | Progress Note - Hospitalist ---
JOYA ORTA,MED STUDENT 11/18/19 0855: Subjective HPI/CC On Admission Date Seen by Provider: Nov 18, 2019 Time Seen by Provider: 07:51 CC: Respiratory failure with chronic respiratory failure HPI: This is a 69yoWF clinic patient of [facility] who has h/o COPD severe type O2 dependent with multiple hospital stays in the past who continues to smoke who presents to the ER with dyspnea. Patient required intubation when arrived due to acidosis of respiratory source. Patient has acute herpes zoster on right breast dermatome and will be covered with IV Acyclovir. Appreciate Dr Walker consultation. Subjective/Events-last exam Pt sedated on mechanical vent Nurse reports pt self extubated yesterday and was reintubated not accompanied by family in room Focused Exam Time of Focused Exam: 07:00 Objective Exam Vital Signs Vital Signs Date Time Temp Pulse Resp B/P (MAP) Pulse Ox O2 Delivery O2 Flow Rate FiO2 11/18/19 13:00 91 20 152/82 (105) 95 Mechanical Ventilator 30.00 11/18/19 09:53 55 11/18/19 08:16 36.03245 Capillary Refill : Less Than 3 Seconds General Appearance: WD/WN, Chronically ill Respiratory: No Accessory Muscle Use, No Respiratory Distress, Crackles, Wheezing Cardiovascular: Regular Rate, Rhythm, No Edema, No Gallop, No Murmur, Normal Peripheral Pulses Gastrointestinal: Soft; No Distended Results/Procedures Lab Laboratory Tests 11/18/19 03:07 Patient resulted labs reviewed. Assessment/Plan Assessment and Plan Assess & Plan/Chief Complaint Assessment Acute on chronic respiratory failure hypercapnia hyponatremia hypokalemia - resolved hypomagnesemia Anemia Sputum cx positive for p. aeruginosa Plan Pt self extubated yesterday. Dr. Walker intubated again. Pts baseline mental status questionable Levoquin added for p. aeruginosa coverage, awaiting sensitivities Attempting to contact pts sister about DPoA/DNR/DNI status of pt Continue IVF, antibiotics, DVT/PE prophylaxis, serial labs including ABG, CXR Clinical Quality Measures DVT/VTE Risk/Contraindication: Risk Factor Score Per Nursin RFS Level Per Nursing on Admit: 4+=Very High SOPHIA WHITLEY DO 11/18/192046: Subjective Subjective/Events-last exam Pt doing okay, back on ventilator after she self-extubated. Levaquin on board for pseudomonas. Very poor prognosis. Objective Exam General Appearance: No Apparent Distress, Chronically ill, Cachetic Respiratory: No Accessory Muscle Use, Crackles, Wheezing Assessment/Plan Assessment and Plan Assess & Plan/Chief Complaint Prognosis poor Supervisory-Addendum Brief Verification & Attestation Participated in pt care: history, MDM, physical Personally performed: exam, history, MDM, supervision of care Care discussed with: Medical Student Procedures: n/a Results interpretation: Verified all documentation Verification and Attestation of Medical Student E/M Service A medical student performed and documented this service in my presence. I reviewed and verified all information documented by the medical student and made modifications to such information, when appropriate. I personally performed the physical exam and medical decision making. Sophia Whitley, Nov 18, 2019,20:47 JOYA ORTA,MED STUDENT Nov 18, 2019 08:55 SOPHIA WHITLEY DO Nov 18, 2019 20:47
[2019-11-18] MEDS ORDERED: LEVOFLOXACIN 750 MG/150 ML IV 150 ML IV SCH (09:00)
[2019-11-18] MEDS ORDERED: FUROSEMIDE 40 MG/4 ML INJ (LASIX) IVP SCH (09:00)
--- NOTE | 2019-11-18 09:07 | Physical Therapy Progress Note ---
Therapy Progress Note Patient currently intubated and sedated. Will check back tomorrow. FATOU VEGA PT Nov 18, 2019 09:07
--- NOTE | 2019-11-18 10:29 | Occ Therapy Progress Note ---
Therapy Progress Note Pt intubated/ sedated. OT to hold therapy services until pt medically stable and able to participate in skilled therapy tx. CATRINA NINO OTR Nov 18, 2019 10:29
--- NOTE | 2019-11-18 14:57 | NUR ---
"RD ASSESSMENT PMHx: COPD; CAD; MO; HTN; hypercholesterolemia; PVD; TBI; colitis, Crohn's disease; CA(ovarian, skin) PT INTERACTION: Note pt is currently intubated and sedated. Note pt is currently NPO x3d, per chart review. Discussed plan of care with TRINY Stafford and discussed enteral nutrition. ABNORMAL NUTRITION-RELATED LAB VALUES LOW: Na 133; Cl 97; cr 0.57; Ca 7.8 HIGH: TG 172 Est. kcal needs: 8858-6188 kcal | 25-30 kcal/kg Est. Pro needs: 50-60 g Pro | 1.0-1.2 g Pro/kg PES STATEMENT: Inadequate oral intake (NI-2.1) related to NPO status as evidenced by pt intubated/sedated INTERVENTION: Note pt currently NPO. Would recommend the following TF: Jevity 1.5 at goal rate of 40ml/hr. Begin at 10ml/hr and increase by 10ml q6h as tolerated. Monitor gastric residuals for tolerance. At goal rate, provides 1440 kcal (29 kcal/kg); 61 g Pro (1.2 g Pro/kg); and 729 ml free water. Flush with 75ml H2O q4h for hydration status. With flushes, provides 1179 ml free water. Will continue to follow and reassess as pt needs and status change. MONITOR/EVALUATE: PO Intake; Plan of Care; Hydration Status; Weight Status; Lab Values Eduardo Carranza, MS, RD, LD [phone]"
[2019-11-18] MEDS: fentaNYL 1,250 MCG/NS 250 ML DRIP IV SCH ×2 (15:24)
[2019-11-18] MEDS: ENOXAPARIN 40 MG/0.4 ML (LOVENOX) SYR SC SCH (20:28)
[2019-11-19] VITALS (27 sets, daily range): BP systolic 90–157; BP diastolic 51–94
[2019-11-19] MEDS: PIPERACILLIN/TAZOBACTAM (BULK) 4.5 GM in NS (IVPB) 100 ML IV SCH ×4 (00:10→23:36)
[2019-11-19] MEDS: methylPREDNISolone 40 MG/ML (Solu-MEDROL) VIAL IV SCH ×5 (00:10→23:33)
[2019-11-19] MEDS: inSUlin ASPART (NovoLOG) 1 UNIT/0.01 ML (CHARGE PER UNIT) SC SCH ×4 (00:10→20:43)
[2019-11-19 02:42] LABS: BASOPHILS % (AUTO) 0 % (0-10); EOSINOPHILS % (AUTO) 0 % (0-10); HEMATOCRIT 32 % (35-52); HEMOGLOBIN 10.5 G/DL (11.5-16.0); LYMPHOCYTES # (AUTO) 0.5 X 10^3 (1.0-4.0); LYMPHOCYTES % (AUTO) 4 % (12-44); MEAN CORPUSCULAR HEMOGLOBIN 30 PG (25-34); MEAN CORPUSCULAR HGB CONC 33 G/DL (32-36); MEAN CORPUSCULAR VOLUME 91 FL (80-99); MEAN PLATELET VOLUME 9.1 FL (7.4-10.4); MONOCYTES # (AUTO) 0.5 X 10^3 (0.0-1.0); MONOCYTES % (AUTO) 3 % (0-12); NEUTROPHILS # (AUTO) 14.4 X 10^3 (1.8-7.8); NEUTROPHILS % (AUTO) 93 % (42-75); PLATELET COUNT 295 10^3/uL (130-400); RED CELL DISTRIBUTION WIDTH 15.2 % (10.0-14.5); WHITE BLOOD COUNT 15.5 10^3/uL (4.3-11.0)
[2019-11-19 02:43] LABS: ABG BASE EXCESS 8.3 MMOL/L (-2.5-2.5); ABG OXYGEN SATURATION 97 % (94-100); ABG PCO2 43 MMHG (35-45); ABG PH 7.49 (7.37-7.43); ABG PO2 84 MMHG (79-93); ABG TCO2 33.5 MMOL/L (21.0-31.0); ALLENS TEST ART LINE; VENTILATOR YES
[2019-11-19 02:44] LABS: PATIENT TEMP 36.9
[2019-11-19] MEDS: RT-ALBUTEROL/IPRATROPIUM 3 ML (DUONEB) VIAL INH SCH ×6 (02:46→18:39)
[2019-11-19 03:03] LABS: BUN/CREATININE RATIO 21; CALCIUM 7.7 MG/DL (8.5-10.1); CARBON DIOXIDE 26 MMOL/L (21-32); CHLORIDE 92 MMOL/L (98-107); CREATININE SERUM 0.57 MG/DL (0.60-1.30); GFR ESTIMATED > 60; GLUCOSE 104 MG/DL (70-105); MAGNESIUM 1.5 MG/DL (1.6-2.4); PHOSPHORUS 3.5 MG/DL (2.3-4.7); POTASSIUM 3.5 MMOL/L (3.6-5.0); SODIUM 134 MMOL/L (135-145)
[2019-11-19] MEDS: PROPOFOL DRIP (ICU) 100 ML IV SCH (03:09)
[2019-11-19] MEDS: DexMEDEtomidine 250 ML DRIP 250 ML IV SCH (03:10)
[2019-11-19] MEDS: LACTATED RINGERS 1,000 ML IV SCH ×2 (03:19→06:38)
[2019-11-19] MEDS: KCL 20 MEQ TAB (K-DUR) PO SCH (03:20)
[2019-11-19] MEDS: MAGNESIUM 1 GM/100 ML IVPB 100 ML IV SCH ×3 (03:20→04:34)
[2019-11-19] MEDS: POTASSIUM CL 10MEQ/50ML IVPB 50 ML IV SCH ×5 (03:20→06:06)
--- NOTE | 2019-11-19 05:07 | Pulmonary Progress Note ---
Subjective Date Seen by a Provider: Nov 19, 2019 Time Seen by a Provider: 05:02 Subjective/Events-last exam Pt sedated on vent. Sepsis Event Evaluation Height, Weight, BMI Height: 5'0" Weight: 90lbs. 7.0oz. 41.673528lt; 19.76 BMI Method:Stated Focused Exam Time of Focused Exam: 07:00 Exam Exam Vital Signs Date Time Temp Pulse Resp B/P (MAP) Pulse Ox O2 Delivery O2 Flow Rate FiO2 11/19/19 04:00 94 Mechanical Ventilator 50 11/19/19 04:00 104 20 97/54 (68) 93 Mechanical Ventilator 50.00 11/19/19 04:00 36.9 11/19/19 03:09 115/60 11/19/19 03:00 108 19 126/64 (84) 95 Mechanical Ventilator 50.00 11/19/19 02:48 Mechanical Ventilator 50.00 11/19/19 02:48 101 20 94 50 11/19/19 02:00 101 18 129/65 (86) 95 Mechanical Ventilator 55.00 11/19/19 01:00 99 19 124/64 (84) 95 Mechanical Ventilator 55.00 11/19/19 01:00 100 11/19/19 00:00 94 Mechanical Ventilator 55 11/19/19 00:00 37.2 11/19/19 00:00 100 20 115/59 (77) 95 Mechanical Ventilator 55.00 11/18/19 23:11 89 20 94 55 11/18/19 23:00 92 16 109/56 (73) 94 Mechanical Ventilator 55.00 11/18/19 22:00 85 19 137/68 (91) 95 Mechanical Ventilator 55.00 11/18/19 21:00 85 20 133/62 (85) 94 Mechanical Ventilator 55.00 11/18/19 20:24 135/68 11/18/19 20:00 95 19 133/67 (89) 95 Mechanical Ventilator 55.00 11/18/19 20:00 37.4 11/18/19 20:00 94 Mechanical Ventilator 55 11/18/19 20:00 Mechanical Ventilator 55.00 11/18/19 19:00 90 18 107/98 (101) 94 Mechanical Ventilator 30.00 11/18/19 19:00 90 11/18/19 18:53 92 20 94 55 1/15/20 18:00 93 19 109/67 (81) 95 Mechanical Ventilator 30.00 11/18/19 17:00 91 20 148/78 (101) 96 Mechanical Ventilator 30.00 11/18/19 16:15 93 Mechanical Ventilator 50 11/18/19 16:00 88 20 155/77 (103) 96 Mechanical Ventilator 30.00 11/18/19 16:00 37.5 11/18/19 15:24 36.8 11/18/19 15:12 95 20 96 55 11/18/19 15:00 89 19 146/74 (98) 96 Mechanical Ventilator 30.00 11/18/19 14:25 36.84179 91 20 152/82 95 Mechanical Ventilator 4.00 11/18/19 14:00 90 19 161/86 (111) 96 Mechanical Ventilator 30.00 11/18/19 13:00 91 20 152/82 (105) 95 Mechanical Ventilator 30.00 11/18/19 12:56 91 11/18/19 12:15 93 Mechanical Ventilator 50 11/18/19 12:00 37.4 11/18/19 12:00 93 12 150/82 (104) 96 Mechanical Ventilator 30.00 11/18/19 11:00 93 15 131/68 (89) 96 Mechanical Ventilator 30.00 11/18/19 10:00 97 19 131/68 (89) 95 Mechanical Ventilator 30.00 11/18/19 09:53 101 20 94 55 11/18/19 09:00 105 14 137/71 (93) 94 Mechanical Ventilator 30.00 11/18/19 08:45 93 Mechanical Ventilator 50 11/18/19 08:16 36.98604 82 10 149/98 93 Mechanical Ventilator 4.00 11/18/19 08:00 36.8 82 10 149/98 (115) 93 Mechanical Ventilator 30.00 11/18/19 07:00 84 12 148/78 (101) 91 Mechanical Ventilator 30.00 11/18/19 06:58 78 23 92 55 11/18/19 06:39 79 11/18/19 06:00 78 12 161/86 (111) 90 Mechanical Ventilator 30.00 I & O 11/19/19 07:00 Intake Total 160 ml Output Total 5950 ml Balance -5790 ml Height & Weight Height: 5'0" Weight: 90lbs. 7.0oz. 41.279640lm; 19.76 BMI Method:Stated General Appearance: No Apparent Distress, Chronically ill, Cachetic HEENT: Moist Mucous Membranes, Other (ET tube in place ) Neck: Non Tender, Supple Respiratory: No Accessory Muscle Use, Crackles, Wheezing Cardiovascular: Regular Rate, Rhythm, No Edema, No Gallop, No Murmur, Normal Peripheral Pulses Capillary Refill: Less Than 3 Seconds Peripheral Pulses: 1+ Dorsalis Pedis (R), 1+ Left Dors-Pedis (L), 1+ Radial Pulses (R), 1+ Radial Pulses (L) Extremity: Normal Capillary Refill, Normal Inspection, No Pedal Edema Neurologic/Psychiatric: Other (intubated) Skin: Normal Color, Warm/Dry Lymphatic: No Adenopathy Results Lab Laboratory Tests 11/18/19 03:07 11/19/19 02:32 Assessment/Plan Assessment/Plan Acute respiratory failure -Vent -will attempt to wean vent -40mg of lasix bid -KVO IVF -Duoneb Q 4 -Solumedrol 40 IV Q 6 Pseudomonus pneumonia - present on admission -Continue Zosyn x 10-14 days -Await sensitivities -D/C Levaquin continue Zosyn CHF - stage 1 diastolic dysfunction - lasix 40 mg BID -45-55% HTN and tachycardia - lopressor to 100mg BID Herpes Zoster to right chest and back -Acyclovir Hypomag, hypokalemia -replace Hyponatremia -Monitor HX of Opiate and Benzo abuse NSTEMI with hx of CAD -Cardiology following KATARZYNA MOJICA DO Nov 19, 2019 05:07
[2019-11-19] MEDS: FUROSEMIDE 40 MG/4 ML INJ (LASIX) IVP SCH ×2 (05:13→20:39)
[2019-11-19] MEDS: ACYCLOVIR INJECTION 500 MG in NS (IVPB) 100 ML IV SCH ×3 (05:17→23:34)
--- NOTE | 2019-11-19 05:50 | NUR ---
PT SBP IN 70'S. HR 110'S. ALL SEDATION TURNED OFF. NOTIFIED YUNIOR-SEE ORDER HX
--- NOTE | 2019-11-19 08:19 | Physical Therapy Progress Note ---
Therapy Progress Note Patient is sedated on the ventilator at this time. PT will continue to monitor patient status and resume therapy when indicated. NIDA MYLES PT Nov 19, 2019 08:19
[2019-11-19] MEDS: risperiDONE 1 MG (RisperDAL) TAB PO SCH ×2 (08:44→20:37)
[2019-11-19] MEDS: meTOprolol TARTRATE 50 MG (LOPRESSOR) TAB PO SCH ×2 (08:44→20:38)
[2019-11-19] MEDS: PANTOPRAZOLE 40 MG (PROTONIX) VIAL IV SCH (08:44)
[2019-11-19 09:03] LABS: ABG BASE EXCESS 9.3 MMOL/L (-2.5-2.5); ABG OXYGEN SATURATION 94 % (94-100); ABG PCO2 40 MMHG (35-45); ABG PH 7.52 (7.37-7.43); ABG PO2 70 MMHG (79-93)
[2019-11-19 09:05] LABS: ALLENS TEST POSITIVE; INSPIRED O2 45%; PATIENT TEMP 37; VENTILATOR YES
--- NOTE | 2019-11-19 09:07 | Diagnostic Imaging Report ---
INDICATION: Shortness of breath, intubated. COMPARISON: FINDINGS: Single view of the chest demonstrates cardiac enlargement with persistent but decreased central vascular congestion. There is a stable small effusion in the left base. There is no pneumothorax. Support lines are stable and unchanged. IMPRESSION: 1. Cardiac enlargement with persistent but decreased central vascular congestion. 2. Stable small left-sided effusion. Dictated by: Dictated on workstation # [id number]
--- NOTE | 2019-11-19 10:46 | Progress Note - Hospitalist ---
JOYA ORTA,MED STUDENT 11/19/19 1046: Subjective HPI/CC On Admission Date Seen by Provider: Nov 19, 2019 Time Seen by Provider: 08:01 CC: Respiratory failure with chronic respiratory failure HPI: This is a 69yoWF clinic patient of [facility] who has h/o COPD severe type O2 dependent with multiple hospital stays in the past who continues to smoke who presents to the ER with dyspnea. Patient required intubation when arrived due to acidosis of respiratory source. Patient has acute herpes zoster on right breast dermatome and will be covered with IV Acyclovir. Appreciate Dr Walker consultation. Subjective/Events-last exam Pt alert and responding to commands ET tube still in place, informed pt we would try to remove today Nods her head when asked if shes in pain, will follow up after extubation Not accompanied by family at bedside Focused Exam Time of Focused Exam: 07:00 Objective Exam Vital Signs Vital Signs Date Time Temp Pulse Resp B/P (MAP) Pulse Ox O2 Delivery O2 Flow Rate FiO2 11/19/19 10:05 Nasal Cannula 3.00 11/19/19 10:00 105 25 133/72 (92) 11/19/19 09:00 92 11/19/19 07:40 45 11/19/19 04:00 36.9 Capillary Refill : Less Than 3 Seconds General Appearance: No Apparent Distress, WD/WN, Chronically ill HEENT: Moist Mucous Membranes, Other (ET tube in place ) Neck: Non Tender, Supple Respiratory: Chest Non Tender, No Accessory Muscle Use, No Respiratory Distress, Crackles, Wheezing Cardiovascular: No Edema, No Gallop, No Murmur, Tachycardia Gastrointestinal: Non Tender, Soft Extremity: No Pedal Edema, Other (SCDs in place ) Neurologic/Psychiatric: Alert Skin: Normal Color, Warm/Dry Results/Procedures Lab Laboratory Tests 11/19/19 02:32 Patient resulted labs reviewed. Assessment/Plan Assessment and Plan Assess & Plan/Chief Complaint Assessment Acute on chronic respiratory failure hypercapnia - resolved hyponatremia hypokalemia hypomagnesemia Anemia Sputum cx positive for p. aeruginosa Plan Will try to wean off vent today - will reevaluate if successful Levoquin for pseudomonas coverage. Cx reveals greer-sensitive. Attempting to contact pts sister about DPoA/DNR/DNI status of pt Continue IVF, antibiotics, DVT/PE prophylaxis, serial labs including ABG, CXR Clinical Quality Measures DVT/VTE Risk/Contraindication: Risk Factor Score Per Nursin RFS Level Per Nursing on Admit: 4+=Very High SOPHIA GALE DO 11/20/19 0702: Subjective Subjective/Events-last exam Pt still maintained on intubation Alert today Ready for trial of extubation Pt appears to be very end stage Review of Systems Pulmonary: Dyspnea Objective Exam General Appearance: No Apparent Distress, WD/WN Respiratory: Lungs Clear, Decreased Breath Sounds Cardiovascular: Regular Rate, Rhythm Assessment/Plan Assessment and Plan Assess & Plan/Chief Complaint Extubation? Poor prognosis Supervisory-Addendum Brief Verification & Attestation Participated in pt care: history, MDM, physical Personally performed: exam, history, MDM, supervision of care Care discussed with: Medical Student Procedures: n/a Results interpretation: Verified all documentation Verification and Attestation of Medical Student E/M Service A medical student performed and documented this service in my presence. I reviewed and verified all information documented by the medical student and made modifications to such information, when appropriate. I personally performed the physical exam and medical decision making. Sophia Gale, Nov 20, 2019,07:01 JOYA ORTA,MED STUDENT Nov 19, 2019 10:46 SOPHIA GALE DO Nov 20, 2019 07:02
--- NOTE | 2019-11-19 11:00 | Occ Therapy Progress Note ---
Therapy Progress Note Pt on mechanical ventilation, OT to hold therapy on this date and eval/ treat when pt medically stable. CATRINA NINO OTR Nov 19, 2019 11:00
--- NOTE | 2019-11-19 11:13 | NUR ---
[address] GIVEN TO DR MOJICA ORDERS RECEIVED TO EXTUBATE. 1005 PT EXTUBATED, RESTRAINTS REMOVED, PT PLACED ON 02 AT 3 LITERS PER NC SA02 NOTED AT 89-90%. WILL CONTINUE TO MONITOR.
--- NOTE | 2019-11-19 11:28 | ST Dysphagia Evaluation ---
Speech Evaluation-General Medical Diagnosis Respiratory Failure with intubation Onset Date: Nov 19, 2019 Therapy Diagnosis Therapy Diagnosis: Oropharyngeal Dysphagia Precautions Precautions: Aspiration Precautions/Isolations: Aspiration Referral Referring Physician: Dr. Whitley Medical History Pertinent Medical History: Arthritis, CAD, COPD, GERD, HTN, MO, Neuropathy, Smoking Reviewed History: Yes Speech PLF/Current-Dysphagia Prior Level of Function Patient was able to eat soft diet at home. She is noted to have some food allergies. Subjective Patient was cooperative and pleasant with the Bedside Dysphagia Evaluation Cognitive Status Patient Orientation: Person, Place, Situation Oral Motor Skills Dentition: Natural, Tumbled, Stained Patient was NPO pending BDE Oral Expression Ability: No Impairment Voice Voice Phonatory-Based Quality: Breathy, Weak Voice Pitch: Normal Voice Loudness: Moderately Soft/Quiet Face Facial Symmetry: Symmetrical Oral-Facial Assessment Oral-Facial Dentition: Normal Labial Seal Description: Weak Smile: Reduced ROM Puff Cheeks: Reduced Strength Lingual Protrusion: Normal Lingual ROM: Normal Lingual Strength: Normal Pharynx Velopharyngeal Move.: Normal Volitional Dry Swallow: Yes Dysphagia Evaluation Consistencies Presented: Thin Liquid, Mechanical Soft, Pureed Oral phase is within normal range of function Pharyngeal phase is within normal range of function Dysphagia Evaluation Summary Patient was admitted to the hospital via ED due to respiratory failure. Patient was intubated at that time. Orders received this date for BDE due to extubation this morning. Bedside Dysphagia Evaluation was completed with the following trials: Thin via small sips from cup x2 and straw without difficulty. Puree at 1/2 tsp and mechanical soft at 1/2 tsp without difficulty. No overt s/s of aspiration were noted during evaluation with consistencies presented. Patient has only a few natural teeth on the lower. Regular texture was not presented due to dentition or lack there of. Patient is recommended for Dysphagia II diet le jojo with thin liquids. This information was provided to her nurse, Nydia and written on the room white board. Patient does not require further ST services at this time. Barriers to Learning Patient's medical status Speech-Plan Patient/Family Goals Patient/Family Goals: Patient's location upon discharge is unknown at this time. Treatment Plan Speech Therapy Treatment Plan: Discontinue ST Frequency: 1 time per week Estimated Hrs Per Day: .25 hour per day Rehab Potential: Good Barriers to Learning: Patient's medical status Safety Risks/Education Teaching Recipient: Patient, Family Teaching Methods: Discussion Response to Teaching: Verbalize Understanding Education Topics Provided: Diet level and safety of oral intake Time Speech Therapy Time In: 10:45 Speech Therapy Time Out: 11:00 Total Billed Time: 15 Billed Treatment Time LashellLEE BETHANIA ST Nov 19, 2019 11:28
[2019-11-19] MEDS: LIDOCAINE 4% (SALONPAS) PATCH TOP SCH (12:15)
--- NOTE | 2019-11-19 12:25 | NUR ---
Pastoral care visit, paged to contact pt re: anxiety. visited with pt, seemed to be doing better.
--- NOTE | 2019-11-19 12:43 | NUR ---
PT REQUESTING HER HOME MEDICATION OF XANAX AND PAXIL STATES SHE HAS PTSD. DR MOJICA NOTIFIED AND NEW ORDERS RECEIVED. SEE ORDER HX.
[2019-11-19] MEDS: PARoxetine 20 MG (PAXIL) TAB PO SCH (13:13)
[2019-11-19] MEDS: ALPRAZolam 0.5 MG (XANAX) TAB PO PRN ×2 (13:13→20:38)
[2019-11-19] MEDS ORDERED: HYDROcodone/APAP 5 MG/325 MG (LORTAB) TAB PO PRN (13:30)
[2019-11-19] MEDS ORDERED: GABAPENTIN 300 MG (NEURONTIN) CAP PO PRN (13:30)
--- NOTE | 2019-11-19 13:38 | NUR ---
Anointed by Fr Dmitriy Mehta this morning.
--- NOTE | 2019-11-19 14:05 | Occupational Therapy Eval ---
OT Evaluation-General/PLF Medical Diagnosis Admission Date Nov 15, 2019 at 06:57 Medical Diagnosis: Respiratory Failure with intubation Onset Date: Nov 19, 2019 Therapy Diagnosis Therapy Diagnosis: Decreased ADL function Height/Weight Height (Feet): 5 Height (Inches): 0 Weight (Pounds): 90 Weight (Ounces): 7.0 Precautions Precautions/Isolations: Aspiration Safety Interventions: Place Restraint Referral Physician: Sophia Whitley DO Referral Reason: Activity Tolerance, Self Care, Evaluation/Treatment, Strengthening/ROM Medical History Pertinent Medical History: Arthritis, CAD, COPD, GERD, HTN, [place], Neuropathy, Smoking Additional Medical History cornonary stent, COPD, pneumonia, angina, chronic edema, CAD, [place], high chol, HTN, PVD, valvular heart disease, TBI, arthritis, anxiety/ depression/ bipolar disorder/ PTSD Current History Per charts: Acute on chronic respiratory failure requiring intubation upon arrival to ER Hypercapnia with respiratory acidosis Pneumonia placed on Zosyn Acute herpes zoster right chest wall placed on Acyclovir Exacerbation of COPD with hypoxia placed on IV steroids Chronic oxygen dependence Confusion chronic Frail status with cachexia Continued current smoker Reviewed History: Yes Social History Home: Single Level Current Living Status: Other Family (sister Sujit) Entry Into Home: Stairs With Railing Steps Into Home: 3 ADL-Prior Level of Function SCALE: Activities may be completed with or without assistive devices. 9-Qkvxkjpzff-fpvvedu completes the activity by him/herself with no assistance from a helper. 5-Set-up or Clean-up Assistance-helper sets up or cleans up; patient completes activity. [place] assists only prior to or following the activity. 4-Supervision or Touching Assistance-helper provides verbal cues and/or touching/steadying and/or contact guard assistance as patient completes activity. Assistance may be provided throughout the activity or intermittently. 3-Partial/Moderate Assistance-helper does LESS THAN HALF the effort. [place] lifts, holds or supports trunk or limbs, but provides less than half the effort. 2-Substantial/Maximal Assistance-helper does MORE THAN HALF the effort. [place] lifts or holds trunk or limbs and provides more than half the effort. 6-Stfqbujox-tamqmc does ALL the effort. Patient does none of the effort to complete the activity. Or, the assistance of 2 or more helpers is required for the patient to complete the activity. If activity was not attempted, code reason: 7-Patient Refused. 9-Not Applicable-not attempted and the patient did not perform the activity before the current illness, exacerbation or injury. 10-Not Attempted due to Environmental Limitations-(lack of equipment, weather restraints, etc.). 88-Not Attempted due to Medical Conditions or Safety Concerns. ADL PLOF Comments Pt states IND with ADLs other than assist for transfers in/out of tub/ shower Self Care: Needed Some Help Functional Cognition: Independent DME/Equipment: Bath Chair, Tub/Shower DME/Equipment Comments Pt utilized cane for functional ambulation. Occupation: retired Drive Self: No Leisure Interests: painting OT Current Status Subjective Pt's nurse states pt states that she would like pastoral care to see pt prior to session. Post-pastoral care, pt seen in bed. Pt alert/ oriented. Pt agrees to eval, states pain in back and shoulders, stating she has arthritis and chronic pain. Pt states pain is no worse than normal. Mental Status/Objective Patient Orientation: Person, Place, Situation, Normal For Age Attachments: Hsieh Catheter, IV, Oxygen, Telemetry Current Glasses/Contacts: Yes Hearing Aids: No Dentures/Partials: No Hand Dominance: Left Upper Extremity ROM Decreased strength, PROM full range. Upper Extremity Coordination delayed, WFL Upper Extremity Sensation WFL BUE States tingling sensation in LLE (onset prior to hospitalization) Upper Extremity Strength decreased. 2-/5 Edema: slight edema bilateral hands. ADL-Treatment Upper Body Dressing (QC): 1 Lower Body Dressing (QC): 1 On/Off Footwear (QC): 1 Toileting Hygiene (QC): 1 ADLs based on pt's functional mobility and strength. Pt would be TD all ADLs. Other Treatments Pt seen in bed, agrees to OT eval. Pt's eyes slightly open through session. Pt oriented, provides hx. Pt denies OOB activities, requests remote to watch TV. Pt educated on OT role and goals for therapy session. Pt attempts to move shoulders/biceps with limited movement. Pt ranged to full range in all planes bilaterally, educated on moving limbs during day. Pt states throat hurts and is hard to talk. Pt completes drink of water with OT holding drink. Pt states throat milian with liquid. Pt educated on use of call light and therapy following day. Pt agrees, all needs met, call light in reach. Education OT Patient Education: Correct positioning, Exercise program, Home exercise program, Rehab process Teaching Recipient: Patient Teaching Methods: Demonstration, Discussion Response to Teaching: Verbalize Understanding, Return Demonstration OT Mcc Goals Mutuel Department Manager Goals Time Frame: Nov 26, 2019 Eating (QC): 6 Oral Hygiene (QC): 6 Toileting Hygiene (QC): 6 Shower/Bathe Self (QC): 4 Upper Body Dressing (QC): 6 Lower Body Dressing (QC): 4 On/Off Footwear (QC): 4 Additional Goals: 1-Demonstrate ADL Tasks, 2-Verbalize Understanding, 3-ImproveStrength/Wilbert 1=Demonstrate adherence to instructed precautions during ADL tasks. 2=Patient will verbalize/demonstrate understanding of assistive devices/modifications for ADL. 3=Patient will improve strength/tolerance for activity to enable patient to perform ADL's. OT Education/Plan Problem List/Assessment Assessment: Decreased Activ Tolerance, Decreased UE Strength, Dependent Transfers, Edema, Impaired Bed Mobility, Impaired Funct Balance, Impaired I ADL's, Impaired Self-Care Skills Discharge Recommendations Plan/Recommendations: Continue POC Equpiment Recommendations-D/C: Rails on Tub/Shower Treatment Plan/Plan of Care Treatment,Training & Education: Yes Patient would benefit from OT for education, treatment and training to promote independence in ADL's, mobility, safety and/or upper extremity function for ADL's. Plan of Care: ADL Retraining, Caregiver Training, Functional Mobility, UE Funct Exercise/Act, W/C Management Training Treatment Duration: Nov 26, 2019 Frequency: 5 times per week Estimated Hrs Per Day: .25 hour per day Agreement: Yes Rehab Potential: Good Time/GCodes Start Time: 13:39 Stop Time: 13:52 Total Time Billed (hr/min): 13 Billed Treatment Time 1, EVM (13) CATRINA NINO OTR Nov 19, 2019 14:05
--- NOTE | 2019-11-19 14:26 | Physical Therapy Evaluation ---
PT Evaluation-General Medical Diagnosis Admission Date Nov 15, 2019 at 06:57 Medical Diagnosis: Respiratory Failure with intubation Onset Date: Nov 19, 2019 Therapy Diagnosis Therapy Diagnosis: generalized weakness/debilitly Height/Weight Height (Feet): 5 Height (Inches): 0 Weight (Pounds): 90 Weight (Ounces): 7.0 Precautions Precautions/Isolations: Aspiration Referral Physician: Sophia Whitley DO Reason for Referral: Evaluation/Treatment Medical History Pertinent Medical History: Arthritis, CAD, COPD, GERD, HTN, [place], Neuropathy, Smoking Current History EMS from home secondary to ill x 3 days/extubated 11/19/19 Reviewed History: Yes Social History Home: Single Level Current Living Status: Other Family (sister Sujit) Entry Into Home: Stairs With Railing PT Steps Into Home: 3 Prior Prior Level of Function SCALE: Activities may be completed with or without assistive devices. 4-Hbofjiptga-onlwzoo completes the activity by him/herself with no assistance from a helper. 5-Set-up or Clean-up Assistance-helper sets up or cleans up; patient completes activity. [place] assists only prior to or following the activity. 4-Supervision or Touching Assistance-helper provides verbal cues and/or touching/steadying and/or contact guard assistance as patient completes activity. Assistance may be provided throughout the activity or intermittently. 3-Partial/Moderate Assistance-helper does LESS THAN HALF the effort. [place] lifts, holds or supports trunk or limbs, but provides less than half the effort. 2-Substantial/Maximal Assistance-helper does MORE THAN HALF the effort. [place] lifts or holds trunk or limbs and provides more than half the effort. 3-Uqwwrihwb-jtfdrh does ALL the effort. Patient does none of the effort to complete the activity. Or, the assistance of 2 or more helpers is required for the patient to complete the activity. If activity was not attempted, code reason: 7-Patient Refused. 9-Not Applicable-not attempted and the patient did not perform the activity before the current illness, exacerbation or injury. 10-Not Attempted due to Environmental Limitations-(lack of equipment, weather restraints, etc.). 88-Not Attempted due to Medical Conditions or Safety Concerns. Bed Mobility: 6 Transfers (B,C,W/C): 6 Gait: 6 Stairs: 6 Indoor Mobility (Ambulation): Independent Stairs: Independent Prior Devices Use: Walker PT Evaluation-Current Subjective Patient had received xanax and paxil and was very lethargic. Pain Numeric Pain Scale: 0-No Pain Location: No Pain Reported Objective Patient Orientation: Listless Attachments: Oxygen, Hsieh Catheter, IV ROM/Strength ROM Lower Extremities bilateral LE WFL Strength Lower Extremities 2/5 grossly bilateral LE Integumentary/Posture Integumentary refer to nursing notes Bladder Incontinence: Hsieh Cath Posture kyphotic Neuromuscular (Tone, Coordination, Reflexes) severely diminished with all Sensory Vision: Unable to Assess Hearing: Functional Hand Dominance: Left Sensation Right Lower Extremit: Impaired Sensation Left Lower Extremity: Impaired Transfers Roll Left to Right (QC): 1 patient not safe to perform EOB or OOB activity on this date. Treatment bilateral LE PROM 10 reps x 2 sets AP, HS, SLR, abd/add Assessment/Needs 69y.o. female, will benefit from skilled PT to address functional strength and mobility to improve current LOF to safely return to home or care facility at maximum LOF. Rehab Potential: Guarded PT Short Term Goals Short Term Goals Time Frame: Nov 27, 2019 Roll Left & Right: 3 Sit to lyin Lying to sitting on side of be: 3 Sit to stand: 3 Chair/xth-dd-sqktz transfer: 3 Toilet transfer: 3 Walk 10 feet: 3 Walk 50 feet with two turns: 3 PT Farm Truck Driver Goals Farm Truck Driver Goals PT Farm Truck Driver Goals Time Frame: Dec 05, 2019 Roll Left & Right (QC): 5 Sit to Lying (QC): 5 Lying-Sitting on Side/Bed(QC): 5 Sit to Stand (QC): 5 Chair/Sxx-yh-Jspxy Xfer(QC): 5 Toilet Transfer (QC): 5 Does the Patient Walk: Yes Walk 10 feet (QC): 5 Walk 50ft with 2 Turns (QC): 5 PT Plan Problem List Problem List: Activity Tolerance, Functional Strength, Safety, Balance, Gait, Transfer, Bed Mobility Treatment/Plan Treatment Plan: Continue Plan of Care Treatment Plan: Bed Mobility, Education, Functional Activity Wilbert, Functional Strength, Gait, Safety, Therapeutic Exercise, Transfers Treatment Duration: Dec 05, 2019 Frequency: 5 times per week Estimated Hrs Per Day: .25 hour per day Patient and/or Family Agrees t: Yes Time/GCodes Time In: 1350 Time Out: 1403 Total Billed Treatment Time: 13 Total Billed Treatment 1 visit EVModC 13 min NIDA MYLES PT Nov 19, 2019 14:26
--- NOTE | 2019-11-19 15:29 | NUR ---
DR MOJICA IN ROOM TO EDUCATING PT REGARDING CODE STATUS. PT AGREES WITH DNR. ORDER ENTERED. PT'S SISTER RONNIE NOTIFIED PER PT REQUEST.
[2019-11-19] MEDS: ENOXAPARIN 40 MG/0.4 ML (LOVENOX) SYR SC SCH (20:37)
[2019-11-19] MEDS: GABAPENTIN 600 MG (NEURONTIN) TAB PO SCH (20:43)
[2019-11-20] VITALS (13 sets, daily range): BP systolic 115–189; BP diastolic 75–109
[2019-11-20] MEDS: RT-ALBUTEROL/IPRATROPIUM 3 ML (DUONEB) VIAL INH SCH ×7 (01:54→21:53)
[2019-11-20 03:33] LABS: BASOPHILS % (AUTO) 0 % (0-10); EOSINOPHILS % (AUTO) 0 % (0-10); HEMATOCRIT 33 % (35-52); HEMOGLOBIN 10.9 G/DL (11.5-16.0); LYMPHOCYTES # (AUTO) 0.6 X 10^3 (1.0-4.0); LYMPHOCYTES % (AUTO) 4 % (12-44); MEAN CORPUSCULAR HEMOGLOBIN 30 PG (25-34); MEAN CORPUSCULAR HGB CONC 33 G/DL (32-36); MEAN CORPUSCULAR VOLUME 91 FL (80-99); MEAN PLATELET VOLUME 9.5 FL (7.4-10.4); MONOCYTES # (AUTO) 0.7 X 10^3 (0.0-1.0); MONOCYTES % (AUTO) 4 % (0-12); NEUTROPHILS # (AUTO) 14.4 X 10^3 (1.8-7.8); NEUTROPHILS % (AUTO) 92 % (42-75); PLATELET COUNT 342 10^3/uL (130-400); RED CELL DISTRIBUTION WIDTH 15.1 % (10.0-14.5); WHITE BLOOD COUNT 15.6 10^3/uL (4.3-11.0)
[2019-11-20 03:50] LABS: BUN/CREATININE RATIO 25; CALCIUM 8.1 MG/DL (8.5-10.1); CARBON DIOXIDE 28 MMOL/L (21-32); CHLORIDE 95 MMOL/L (98-107); CREATININE SERUM 0.56 MG/DL (0.60-1.30); GFR ESTIMATED > 60; GLUCOSE 89 MG/DL (70-105); MAGNESIUM 1.8 MG/DL (1.6-2.4); PHOSPHORUS 3.3 MG/DL (2.3-4.7); POTASSIUM 3.4 MMOL/L (3.6-5.0); SODIUM 135 MMOL/L (135-145); TRIGLYCERIDES 183 MG/DL (<150)
[2019-11-20] MEDS: morphine INJ 4 MG/ML 1 ML (VIAL/SYRINGE) IVP PRN (03:50)
[2019-11-20] MEDS: LACTATED RINGERS 1,000 ML IV SCH (03:50)
[2019-11-20] MEDS: POTASSIUM CL 10MEQ/50ML IVPB 50 ML IV SCH ×6 (05:15→08:34)
[2019-11-20] MEDS: MAGNESIUM 1 GM/100 ML IVPB 100 ML IV SCH (05:15)
[2019-11-20] MEDS: KCL 20 MEQ TAB (K-DUR) PO SCH (05:15)
[2019-11-20] MEDS: inSUlin ASPART (NovoLOG) 1 UNIT/0.01 ML (CHARGE PER UNIT) SC SCH (05:16)
[2019-11-20] MEDS: methylPREDNISolone 40 MG/ML (Solu-MEDROL) VIAL IV SCH ×4 (05:26→23:53)
[2019-11-20] MEDS: ACYCLOVIR INJECTION 500 MG in NS (IVPB) 100 ML IV SCH ×2 (05:27→13:03)
--- NOTE | 2019-11-20 06:46 | Diagnostic Imaging Report ---
INDICATION: Shortness of breath. Portable chest 3:45 AM FINDINGS: There is left basilar infiltrate or atelectasis. Right IJ central line tip projects over the SVC. Heart size and pulmonary vascularity are normal. Right lung is clear. IMPRESSION: Left basilar infiltrate and/or atelectasis. No appreciable change compared to the previous day. Dictated by: Dictated on workstation # [id number]
[2019-11-20] MEDS: LACTOBACILLUS ACIDOPHILUS (PROBIOTIC) CAPSULE PO SCH ×3 (08:32→16:26)
[2019-11-20] MEDS: PARoxetine 20 MG (PAXIL) TAB PO SCH (08:32)
[2019-11-20] MEDS: meTOprolol TARTRATE 50 MG (LOPRESSOR) TAB PO SCH ×2 (08:32→20:00)
[2019-11-20] MEDS: risperiDONE 1 MG (RisperDAL) TAB PO SCH ×2 (08:33→20:01)
[2019-11-20] MEDS: PANTOPRAZOLE 40 MG (PROTONIX) VIAL IV SCH (08:33)
[2019-11-20] MEDS: PIPERACILLIN/TAZOBACTAM (BULK) 4.5 GM in NS (IVPB) 100 ML IV SCH ×2 (08:33→17:38)
[2019-11-20] MEDS: FUROSEMIDE 40 MG/4 ML INJ (LASIX) IVP SCH ×2 (08:33→20:00)
[2019-11-20] MEDS: GABAPENTIN 600 MG (NEURONTIN) TAB PO SCH ×3 (08:33→20:00)
[2019-11-20] MEDS: LIDOCAINE 4% (SALONPAS) PATCH TOP SCH (08:33)
--- NOTE | 2019-11-20 09:24 | Occupational Ther Daily Note ---
OT Current Status-Daily Note Subjective Pt laying in bed at start of session, agreeable to OT tx stating she had a BM and needs help cleaning up. Nursing present throughout tx, pt did not report any pain. Mental Status/Objective Attachments: Central Line, Hsieh Catheter, IV, Oxygen, Telemetry ADL-Treatment Therapy Code Descriptions/Definitions Functional [place] Measure: 0=Not Assessed/NA 4=Minimal Assistance 1=Total Assistance 5=Supervision or Setup 2=Maximal Assistance 6=Modified [place] 3=Moderate Assistance 7=Complete IndependenceSCALE: Activities may be completed with or without assistive devices. 5-Pwlwpkclwe-zsloyqv completes the activity by him/herself with no assistance from a helper. 5-Set-up or Clean-up Assistance-helper sets up or cleans up; patient completes activity. [place] assists only prior to or following the activity. 4-Supervision or Touching Assistance-helper provides verbal cues and/or touching/steadying and/or contact guard assistance as patient completes activity. Assistance may be provided throughout the activity or intermittently. 3-Partial/Moderate Assistance-helper does LESS THAN HALF the effort. [place] lifts, holds or supports trunk or limbs, but provides less than half the effort. 2-Substantial/Maximal Assistance-helper does MORE THAN HALF the effort. [place] lifts or holds trunk or limbs and provides more than half the effort. 5-Xrigxugie-wjmqne does ALL the effort. Patient does none of the effort to complete the activity. Or, the assistance of 2 or more helpers is required for the patient to complete the activity. If activity was not attempted, code reason: 7-Patient Refused. 9-Not Applicable-not attempted and the patient did not perform the activity bef ore the current illness, exacerbation or injury. 10-Not Attempted due to Environmental Limitations-(lack of equipment, weather r estraints, etc.). 88-Not Attempted due to Medical Conditions or Safety Concerns. Upper Body Dressing (QC): 1 (Pt required total assistance with donning/doffing hospital gown, she did not initiate task, requiring assistance with all parts.) Toileting Hygiene (QC): 1 (Pt dependent with clean up after being incontinent of bowel. Pt required assistance to roll at bed level as OT performed hygiene. ) Other Treatment Pt laying in bed at start of session, stated she was incontinent of BM and needed help cleaning up. OT assisted pt with doffing gown, then with rolling pt side to side in order to complete hygiene. OT then assisted pt with donning clean gown. Nursing present during session getting pt's medicine ready. Assist x2 to scoot pt towards HOB. Pt then able to complete x10 reps each BUE elbow flexion/extension, shoulder flexion, and finger flexion/extension. Pt reports increased fatigue with the activities. OT educated pt on completing these exer cises throughout the day. Post OT session, pt laying in bed with all needs met, nursing present. Education OT Patient Education: Correct positioning, Energy conservation, Exercise program, Modified ADL techniques, Progress toward Goal/Update tx plan, Purpose of tx/functional activities, Transfer techniques Teaching Recipient: Patient Teaching Methods: Discussion Response to Teaching: Verbalize Understanding OT Halfway Goals Communications Equipment Installer Goals Time Frame: Nov 26, 2019 Eating (QC): 6 Oral Hygiene (QC): 6 Toileting Hygiene (QC): 6 Shower/Bathe Self (QC): 4 Upper Body Dressing (QC): 6 Lower Body Dressing (QC): 4 On/Off Footwear (QC): 4 Additional Goals: 1-Demonstrate ADL Tasks, 2-Verbalize Understanding, 3- ImproveStrength/Wilbert 1=Demonstrate adherence to instructed precautions during ADL tasks. 2=Patient will verbalize/demonstrate understanding of assistive devices/modifications for ADL. 3=Patient will improve strength/tolerance for activity to enable patient to perform ADL's. OT Education/Plan Problem List/Assessment Assessment: Decreased Safety Aware, Decreased UE Strength, Impaired Bed Mobility, Impaired I ADL's, Impaired Self-Care Skills, Restricted Funct UE ROM Discharge Recommendations Plan/Recommendations: Continue POC Treatment Plan/Plan of Care Treatment,Training & Education: Yes Patient would benefit from OT for education, treatment and training to promote independence in ADL's, mobility, safety and/or upper extremity function for ADL's. Plan of Care: ADL Retraining, Caregiver Training, Functional Mobility, UE Funct Exercise/Act, W/C Management Training Treatment Duration: Nov 26, 2019 Frequency: 5 times per week Estimated Hrs Per Day: .25 hour per day Agreement: Yes Rehab Potential: Guarded Time/GCodes Start Time: 08:20 Stop Time: 08:35 Total Time Billed (hr/min): 15 Billed Treatment Time 1, ADL CRUMPACKER,RAUDEL OT Nov 20, 2019 09:24
--- NOTE | 2019-11-20 09:39 | Physical Therapy Daily Note ---
PT Daily Note-Current Subjective Patient agrees to PT. Pain Numeric Pain Scale: 0-No Pain Location: No Pain Reported Mental Status Patient Orientation: Person, Time, Situation Attachments: Oxygen, Hsieh Catheter, IV Transfers SCALE: Activities may be completed with or without assistive devices. 1-Adbemeoyqb-aeeilam completes the activity by him/herself with no assistance from a helper. 5-Set-up or Clean-up Assistance-helper sets up or cleans up; patient completes activity. [place] assists only prior to or following the activity. 4-Supervision or Touching Assistance-helper provides verbal cues and/or touching/steadying and/or contact guard assistance as patient completes activity. Assistance may be provided throughout the activity or intermittently. 3-Partial/Moderate Assistance-helper does LESS THAN HALF the effort. [place] lifts, holds or supports trunk or limbs, but provides less than half the effort. 2-Substantial/Maximal Assistance-helper does MORE THAN HALF the effort. [place] lifts or holds trunk or limbs and provides more than half the effort. 5-Nvsuuqhyz-ahgtxs does ALL the effort. Patient does none of the effort to complete the activity. Or, the assistance of 2 or more helpers is required for the patient to complete the activity. If activity was not attempted, code reason: 7-Patient Refused. 9-Not Applicable-not attempted and the patient did not perform the activity before the current illness, exacerbation or injury. 10-Not Attempted due to Environmental Limitations-(lack of equipment, weather restraints, etc.). 88-Not Attempted due to Medical Conditions or Safety Concerns. Roll Left & Right (QC): 2 Sit to Lying (QC): 2 Lying to Sitting/Side of Bed(Q: 2 Sit to Stand (QC): 2 Chair/Qtf-fe-Jdryg Xfer(QC): 2 Exercises Supine Ex: Ankle pumps, Heel Slides, Hip abd/add Supine Reps: 12 (AAROM) Seated Therapy Exercises: Ankle pumps, Long arc quads, Hip flexion Seated Reps: 15 Assessment Patient up in recliner with needs met. PT to increase activity as tolerated by patient. PT Short Term Goals Short Term Goals Time Frame: Nov 27, 2019 Roll Left & Right: 3 Sit to lyin Lying to sitting on side of be: 3 Sit to stand: 3 Chair/ezy-mi-daobt transfer: 3 Toilet transfer: 3 Walk 10 feet: 3 Walk 50 feet with two turns: 3 PT Fdc Goals Fdc Goals PT Fdc Goals Time Frame: Dec 05, 2019 Roll Left & Right (QC): 5 Sit to Lying (QC): 5 Lying-Sitting on Side/Bed(QC): 5 Sit to Stand (QC): 5 Chair/Abk-eo-Beafc Xfer(QC): 5 Toilet Transfer (QC): 5 Does the Patient Walk: Yes Walk 10 feet (QC): 5 Walk 50ft with 2 Turns (QC): 5 PT Plan Treatment/Plan Treatment Plan: Continue Plan of Care Treatment Plan: Bed Mobility, Education, Functional Activity Wilbert, Functional Strength, Gait, Safety, Therapeutic Exercise, Transfers Treatment Duration: Dec 05, 2019 Frequency: 5 times per week Estimated Hrs Per Day: .25 hour per day Patient and/or Family Agrees t: Yes Time/GCodes Time In: 840 Time Out: 851 Total Billed Treatment Time: 11 Total Billed Treatment 1 visit EX 11 min NIDA MYLES PT Nov 20, 2019 09:39
--- NOTE | 2019-11-20 10:00 | NUR ---
This RN took over patient care at this time. patient alert and orientated, oxygen on, voices no complaints at this time
--- NOTE | 2019-11-20 10:02 | NUR ---
0955 PT TRANSFERRED TO ROOM 415 VIA W/C WITH PORTABLE 02 TANK. REPORT GIVEN TO MILADYS AGOSTO. ALL PERSONAL BELONGINGS SENT WITH PT.
--- NOTE | 2019-11-20 11:02 | NUR ---
provided prayer and Communion.
[2019-11-20] MEDS: RT-ALBUTEROL/IPRATROPIUM 3 ML (DUONEB) VIAL INH PRN (11:19)
--- NOTE | 2019-11-20 11:40 | Progress Note - Hospitalist ---
Subjective HPI/CC On Admission Date Seen by Provider: Nov 20, 2019 Time Seen by Provider: 10:30 CC: Respiratory failure with chronic respiratory failure HPI: This is a 69yoWF clinic patient of [facility] who has h/o COPD severe type O2 dependent with multiple hospital stays in the past who continues to smoke who presents to the ER with dyspnea. Patient required intubation when arrived due to acidosis of respiratory source. Patient has acute herpes zoster on right breast dermatome and will be covered with IV Acyclovir. Appreciate Dr Walker consultation. Subjective/Events-last exam Pt DNR now Loose stools, Lactinex was started Overall prognosis extremely poor Review of Systems Pulmonary: Dyspnea Neurological: Confusion Focused Exam Time of Focused Exam: 07:00 Objective Exam Vital Signs Vital Signs Date Time Temp Pulse Resp B/P (MAP) Pulse Ox O2 Delivery O2 Flow Rate FiO2 11/20/19 19:00 90 11/20/19 18:27 95 Vapotherm 40.00 100 11/20/19 16:20 37.7 32 144/82 (102) Capillary Refill : Less Than 3 Seconds General Appearance: No Apparent Distress, WD/WN, Cachetic Respiratory: No Accessory Muscle Use, No Respiratory Distress, Decreased Breath Sounds, Wheezing Cardiovascular: Regular Rate, Rhythm Neurologic/Psychiatric: Alert Results/Procedures Lab Laboratory Tests 11/20/19 03:22 Patient resulted labs reviewed. Assessment/Plan Assessment and Plan Assess & Plan/Chief Complaint Assessment: Chronic resp failure Cachexia COPD Active smoker Poor prognosis Plan: Nebs O2 DNR No recovery potential Diagnosis/Problems Diagnosis/Problems (1) Acute on chronic respiratory failure with hypercapnia Status: Acute (2) COPD exacerbation Status: Acute (3) Ventilator dependence Clinical Quality Measures DVT/VTE Risk/Contraindication: Risk Factor Score Per Nursin RFS Level Per Nursing on Admit: 4+=Very High SINDY GALE DO Nov 20, 2019 11:40
[2019-11-20] MEDS: ALPRAZolam 0.5 MG (XANAX) TAB PO PRN (17:39)
[2019-11-20] MEDS: VALACYCLOVIR 500 MG TAB (VALTREX) PO SCH (20:00)
[2019-11-20] MEDS: ENOXAPARIN 40 MG/0.4 ML (LOVENOX) SYR SC SCH (20:00)
[2019-11-21 00:40] VITALS: BP 136/92
[2019-11-21] MEDS: PIPERACILLIN/TAZOBACTAM (BULK) 4.5 GM in NS (IVPB) 100 ML IV SCH ×2 (00:45→08:08)
[2019-11-21] MEDS: RT-ALBUTEROL/IPRATROPIUM 3 ML (DUONEB) VIAL INH SCH ×3 (02:19→10:51)
[2019-11-21 04:00] VITALS: BP 174/92
[2019-11-21 05:39] LABS: BASOPHILS % (AUTO) 0 % (0-10); EOSINOPHILS % (AUTO) 0 % (0-10); HEMATOCRIT 38 % (35-52); HEMOGLOBIN 12.2 G/DL (11.5-16.0); LYMPHOCYTES # (AUTO) 0.6 X 10^3 (1.0-4.0); LYMPHOCYTES % (AUTO) 3 % (12-44); MEAN CORPUSCULAR HEMOGLOBIN 30 PG (25-34); MEAN CORPUSCULAR HGB CONC 33 G/DL (32-36); MEAN CORPUSCULAR VOLUME 91 FL (80-99); MEAN PLATELET VOLUME 9.4 FL (7.4-10.4); MONOCYTES # (AUTO) 0.9 X 10^3 (0.0-1.0); MONOCYTES % (AUTO) 4 % (0-12); NEUTROPHILS # (AUTO) 19.6 X 10^3 (1.8-7.8); NEUTROPHILS % (AUTO) 93 % (42-75); PLATELET COUNT 460 10^3/uL (130-400); RED CELL DISTRIBUTION WIDTH 15.3 % (10.0-14.5); WHITE BLOOD COUNT 21.2 10^3/uL (4.3-11.0)
[2019-11-21 05:59] LABS: ALANINE AMINOTRANSFERASE 15 U/L (0-55); ALBUMIN 3.6 GM/DL (3.2-4.5); ALKALINE PHOSPHATASE 64 U/L (40-136); BILIRUBIN,TOTAL 0.5 MG/DL (0.1-1.0); BUN/CREATININE RATIO 40; CALCIUM 8.1 MG/DL (8.5-10.1); CARBON DIOXIDE 26 MMOL/L (21-32); CHLORIDE 96 MMOL/L (98-107); CREATININE SERUM 0.63 MG/DL (0.60-1.30); GFR ESTIMATED > 60; GLUCOSE 114 MG/DL (70-105); POTASSIUM 3.1 MMOL/L (3.6-5.0); SODIUM 138 MMOL/L (135-145); TOTAL PROTEIN 6.4 GM/DL (6.4-8.2)
[2019-11-21] MEDS: LACTOBACILLUS ACIDOPHILUS (PROBIOTIC) CAPSULE PO SCH ×3 (06:36→12:32)
[2019-11-21] MEDS: methylPREDNISolone 40 MG/ML (Solu-MEDROL) VIAL IV SCH ×2 (06:44→12:32)
--- NOTE | 2019-11-21 07:10 | Pulmonary Progress Note ---
Subjective Time Seen by a Provider: 07:06 Subjective/Events-last exam Pt is requiring Vapotherm. Sepsis Event Evaluation Height, Weight, BMI Height: 5'0" Weight: 90lbs. 7.0oz. 41.600695oh; 19.76 BMI Method:Stated Focused Exam Time of Focused Exam: 07:00 Exam Exam Vital Signs Date Time Temp Pulse Resp B/P (MAP) Pulse Ox O2 Delivery O2 Flow Rate FiO2 11/21/19 06:27 91 Vapotherm 40.00 100 11/21/19 04:00 36.9 96 19 174/92 (119) 95 Vapotherm 40.00 100.00 11/21/19 02:17 97 Vapotherm 40.00 100 11/21/19 01:00 110 11/21/19 00:40 37.2 102 24 136/92 (107) 90 Vapotherm 40.00 100.00 11/20/19 21:53 96 Vapotherm 40.00 100 11/20/19 21:00 96 Vapotherm 40.00 100 11/20/19 20:00 37.4 89 20 189/109 (135) 97 Vapotherm 40.00 100.00 11/20/19 19:00 90 11/20/19 18:27 95 Vapotherm 40.00 100 11/20/19 16:20 37.7 79 32 144/82 (102) 88 Nasal Cannula 15.00 11/20/19 16:10 92 Vapotherm 40.00 100 11/20/19 15:42 77 Nasal Cannula 4.00 11/20/19 12:19 82 11/20/19 12:00 37.0 74 18 167/88 (114) 91 Nasal Cannula 4.00 11/20/19 12:00 97 Nasal Cannula 3.00 11/20/19 11:19 88 Nasal Cannula 3.00 11/20/19 10:16 37.2 76 95 32 11/20/19 08:00 92 174/94 (120) Nasal Cannula 3.00 11/20/19 08:00 97 Nasal Cannula 3.00 I & O 11/21/19 07:00 Intake Total 960 ml Output Total 3080 ml Balance -2120 ml Height & Weight Height: 5'0" Weight: 90lbs. 7.0oz. 41.748626yn; 19.76 BMI Method:Stated General Appearance: WD/WN, Cachetic, Moderate Distress HEENT: Moist Mucous Membranes Neck: Non Tender, Supple Respiratory: No Accessory Muscle Use, No Respiratory Distress, Decreased Breath Sounds, Wheezing Cardiovascular: Regular Rate, Rhythm Capillary Refill: Less Than 3 Seconds Peripheral Pulses: 1+ Dorsalis Pedis (R), 1+ Left Dors-Pedis (L), 1+ Radial Pulses (R), 1+ Radial Pulses (L) Extremity: No Pedal Edema, Other (SCDs in place ) Neurologic/Psychiatric: Alert Skin: Normal Color, Warm/Dry Lymphatic: No Adenopathy Results Lab Laboratory Tests 11/20/19 03:22 11/21/19 05:25 Assessment/Plan Assessment/Plan Acute respiratory failure -Check ABG -Add pulmicort to SVN -Give total 80mg of Lasix this AM -Check CXR -Add cont pulse ox -BiPAP QHS and PRN -PT is requiring Vapotherm highflow oxygen. -40mg of lasix bid -KVO IVF -Duoneb Q 4 -Solumedrol 40 IV Q 6 Pseudomonus pneumonia - present on admission -Continue Zosyn x 10-14 days -Await sensitivities - Zosyn CHF - stage 1 diastolic dysfunction - lasix 40 mg BID -45-55% HTN and tachycardia - lopressor to 100mg BID Herpes Zoster to right chest and back -Acyclovir Hypomag, hypokalemia -replace Hyponatremia -Monitor HX of Opiate and Benzo abuse NSTEMI with hx of CAD -Cardiology following KATARZYNA MOJICA DO Nov 21, 2019 07:10
[2019-11-21] MEDS ORDERED: FUROSEMIDE 40 MG/4 ML INJ (LASIX) IVP NR (07:45)
[2019-11-21] MEDS ORDERED: KCL 20 MEQ TAB (K-DUR) PO NR (07:45)
[2019-11-21 08:00] VITALS: BP 175/98
[2019-11-21] MEDS ORDERED: RT-BUDESONIDE NEBS 0.5 MG/2ML (PULMICORT) AMP INH SCH (08:00)
[2019-11-21 08:06] LABS: MAGNESIUM 1.7 MG/DL (1.6-2.4); PHOSPHORUS 4.7 MG/DL (2.3-4.7)
[2019-11-21] MEDS: POTASSIUM CL 10MEQ/50ML IVPB 50 ML IV SCH ×4 (08:07→11:13)
[2019-11-21 08:44] LABS: ABG BASE EXCESS 7.7 MMOL/L (-2.5-2.5); ABG OXYGEN SATURATION 92 % (94-100); ABG PCO2 44 MMHG (35-45); ABG PH 7.47 (7.37-7.43); ABG PO2 70 MMHG (79-93); ABG TCO2 32.8 MMOL/L (21.0-31.0)
[2019-11-21 08:45] LABS: ALLENS TEST YES-POS; INSPIRED O2 100%; PATIENT TEMP 37.7; VENTILATOR NO
[2019-11-21] MEDS: PANTOPRAZOLE 40 MG (PROTONIX) VIAL IV SCH (09:50)
[2019-11-21] MEDS: meTOprolol TARTRATE 50 MG (LOPRESSOR) TAB PO SCH (09:51)
[2019-11-21] MEDS: VALACYCLOVIR 500 MG TAB (VALTREX) PO SCH (09:51)
[2019-11-21] MEDS: PARoxetine 20 MG (PAXIL) TAB PO SCH (09:51)
[2019-11-21] MEDS: LIDOCAINE 4% (SALONPAS) PATCH TOP SCH (09:51)
[2019-11-21] MEDS: GABAPENTIN 600 MG (NEURONTIN) TAB PO SCH ×2 (09:51→12:32)
[2019-11-21] MEDS: risperiDONE 1 MG (RisperDAL) TAB PO SCH ×2 (09:51→21:12)
--- NOTE | 2019-11-21 10:03 | Diagnostic Imaging Report ---
INDICATION: Shortness of air. TECHNIQUE: Single view chest 9:21 AM. CORRELATION STUDY: 11/20/2019 FINDINGS: Right IJ line tip over the expected location SVC, stable. Heart size and mediastinum unchanged. There is prominence about the central pulmonary arteries. Central vasculature appears slightly increased from prior study. Lung camp are somewhat hyperinflated. There is a combination of effusion along with consolidation and/or infiltrate at both lung bases left significantly greater than right. IMPRESSION: 1. Small pleural effusion along with consolidation and/or atelectasis at both lung bases left greater than right. Findings generally stable. 2. Vasculature slightly increased from previous study. Dictated by: Dictated on workstation # [id number]
[2019-11-21] MEDS: FUROSEMIDE 40 MG/4 ML INJ (LASIX) IVP SCH (10:08)
[2019-11-21 12:00] VITALS: BP 162/95
[2019-11-21] MEDS: morphine INJ 4 MG/ML 1 ML (VIAL/SYRINGE) IVP PRN ×3 (14:22→21:11)
[2019-11-21] MEDS ORDERED: LORazepam INJ 2 MG/ML (ATIVAN) VIAL IVP PRN (14:30)
--- NOTE | 2019-11-21 14:33 | Progress Note - Hospitalist ---
Subjective HPI/CC On Admission Date Seen by Provider: Nov 21, 2019 Time Seen by Provider: 13:30 CC: Respiratory failure with chronic respiratory failure HPI: This is a 69yoWF clinic patient of [facility] who has h/o COPD severe type O2 dependent with multiple hospital stays in the past who continues to smoke who presents to the ER with dyspnea. Patient required intubation when arrived due to acidosis of respiratory source. Patient has acute herpes zoster on right breast dermatome and will be covered with IV Acyclovir. Appreciate Dr Walker consultation. Subjective/Events-last exam patient is poorly responsive this afternoon and on Vapotherm with declining oxygenation. I had a long talk with the daughter and the sister who both agree that she has had enough in terms of pain and suffering and wished to proceed with comfort care. Considering the patient's overall prognosis and multiple comorbidities this is a reasonable decision to have arrived at. Focused Exam Time of Focused Exam: 07:00 Objective Exam Vital Signs Vital Signs Date Time Temp Pulse Resp B/P (MAP) Pulse Ox O2 Delivery O2 Flow Rate FiO2 11/21/19 13:00 101 11/21/19 12:00 37.6 20 162/95 (117) 85 Vapotherm 40.00 100.00 11/21/19 10:52 100 Capillary Refill : Less Than 3 Seconds General Appearance: Chronically ill, Cachetic Neck: Limited Range of Motion Respiratory: Lungs Clear, Accessory Muscle Use Cardiovascular: Tachycardia Gastrointestinal: Soft Extremity: No Pedal Edema Neurologic/Psychiatric: Other (poorly responsive) Skin: Pallor Results/Procedures Lab Laboratory Tests 11/21/19 05:25 Patient resulted labs reviewed. Assessment/Plan Assessment and Plan Assess & Plan/Chief Complaint Pseudomonas pneumonia End-stage COPD Congestive heart failure Protein calorie malnutrition with cachexia Poor functional status Will proceed with comfort care, DO NOT RESUSCITATE Clinical Quality Measures DVT/VTE Risk/Contraindication: Risk Factor Score Per Nursin RFS Level Per Nursing on Admit: 4+=Very High MALCOM CARBONE MD Nov 21, 2019 14:33
[2019-11-21 16:10] VITALS: BP 149/87
[2019-11-21] MEDS ORDERED: ENOXAPARIN 30 MG/0.3 ML (LOVENOX) SYR SC SCH (21:00)
--- NOTE | 2019-11-21 22:27 | NUR ---
ASSUMED CARE OF PT AT THIS TIME. PT RESTING COMFORTABLE. NO REQUESTS AT THIS TIME. WILL CONTINUE TO MONITOR.
[2019-11-22 08:00] VITALS: BP 166/88
[2019-11-22] MEDS: LIDOCAINE 4% (SALONPAS) PATCH TOP SCH (08:44)
[2019-11-22] MEDS: risperiDONE 1 MG (RisperDAL) TAB PO SCH ×2 (08:44→20:44)
--- NOTE | 2019-11-22 12:27 | Progress Note - Hospitalist ---
Subjective HPI/CC On Admission Date Seen by Provider: Nov 22, 2019 Time Seen by Provider: 11:45 CC: Respiratory failure with chronic respiratory failure HPI: This is a 69yoWF clinic patient of [facility] who has h/o COPD severe type O2 dependent with multiple hospital stays in the past who continues to smoke who presents to the ER with dyspnea. Patient required intubation when arrived due to acidosis of respiratory source. Patient has acute herpes zoster on right breast dermatome and will be covered with IV Acyclovir. Appreciate Dr Walker consultation. Subjective/Events-last exam patient is laying on her left side in a position being cleaned after having forward her oatmeal all over herself. she had been doing well this morning with talking but is asleep using her abdominal muscles to breath Review of Systems Neurological: Weakness Focused Exam Time of Focused Exam: 07:00 Objective Exam Vital Signs Vital Signs Date Time Temp Pulse Resp B/P (MAP) Pulse Ox O2 Delivery O2 Flow Rate FiO2 11/22/19 12:00 High Flow N/C 2.00 11/22/19 09:00 86 11/22/19 08:00 105 24 166/88 (114) 11/21/19 16:10 36.9 11/21/19 10:52 100 Capillary Refill : Less Than 3 Seconds General Appearance: Chronically ill, Cachetic Neck: Limited Range of Motion Respiratory: Decreased Breath Sounds Cardiovascular: Tachycardia Gastrointestinal: Soft Neurologic/Psychiatric: Depressed Affect, Other (sleeping) Skin: Pallor Results/Procedures Lab Patient resulted labs reviewed. Assessment/Plan Assessment and Plan Assess & Plan/Chief Complaint Pseudomonas pneumonia-on comfort care off antibiotics End-stage COPD-on 4 L nasal cannula Congestive heart failure Protein calorie malnutrition with cachexia Poor functional status chronic pain-patient is currently comfortable family has been with her. Will proceed with comfort care, DO NOT RESUSCITATE Clinical Quality Measures DVT/VTE Risk/Contraindication: Risk Factor Score Per Nursin RFS Level Per Nursing on Admit: 4+=Very High MALCOM CARBONE MD Nov 22, 2019 12:27
[2019-11-22] MEDS: morphine INJ 4 MG/ML 1 ML (VIAL/SYRINGE) IVP PRN ×3 (13:54→20:44)
[2019-11-22 17:20] VITALS: BP 135/81
[2019-11-22 23:40] VITALS: BP 146/82
[2019-11-23 08:00] VITALS: BP 158/92
[2019-11-23] MEDS: LIDOCAINE 4% (SALONPAS) PATCH TOP SCH (08:08)
[2019-11-23] MEDS: risperiDONE 1 MG (RisperDAL) TAB PO SCH ×2 (08:08→20:18)
--- NOTE | 2019-11-23 09:16 | NUR ---
provided prayer and Communion.
--- NOTE | 2019-11-23 09:29 | Occ Therapy Progress Note ---
Therapy Progress Note OT attempted tx this AM, pt pleasantly declined OT services for this date. OT will attempt again tomorrow. 1, visit 09 RAUDEL CARPENTER OT Nov 23, 2019 09:29
--- NOTE | 2019-11-23 10:38 | NUR ---
PALLIATIVE CARE RN consult requested on this patient who is now on CCMO. I met with the patient who is laying in bed on her side, I am seeing robin prominences through the blankets. Patient denies SOB or pain and has no needs at this time. She does appear to be SOB with accessory muscle use and noted retractions..again patent denies SOB. Oxygen is on 2 L. Patient ears are plump with no sign of eminent . Breakfast is in her room, untouched. She reports not being "in the mood" to eat at this time. Attempted to call Nadia daughter, no answer. I did get in touch with her sister Apurva who reports she and Nadia will be here at the hospital at 1 p.m.
--- NOTE | 2019-11-23 10:46 | Progress Note ---
DESIRE CHEEK,MED STUDENT 11/23/19 1046: Subjective Subjective/Events-last exam Pt. reports no new complaints this am and states she is doing "okay". Denies pain, SOB, nausea, vomiting. States she is tolerating food well, ate oatmeal yesterday. Last bm yesterday am. Hsieh in place with good output. Family not at bedside this am. Focused Exam Time of Focused Exam: 07:00 Objective Exam Last Set of Vital Signs Vital Signs Date Time Temp Pulse Resp B/P (MAP) Pulse Ox O2 Delivery O2 Flow Rate FiO2 11/23/19 09:16 High Flow N/C 2.00 11/23/19 09:10 92 11/23/19 08:00 36.5 106 22 158/92 (114) 11/21/19 10:52 100 Capillary Refill : Less Than 3 SecondsLess Than 3 Seconds I&O Intake and Output0 11/23/19 00:00 Intake Total 1535 ml Output Total 700 ml Balance 835 ml Intake Oral 1535 ml Output Urine Total 700 ml # Bowel Movements 1 General: Alert, No Acute Distress, Other (Chronically ill) Lungs: Clear to Auscultation, Normal Air Movement Heart: Normal S1, Normal S2, Other (Tachycardia) Abdomen: Normal Bowel Sounds, Soft, No Tenderness Extremities: Normal Pulses, No Tenderness/Swelling, Other (Good capillary refill) Results/Procedures Lab Laboratory Tests 11/22/19 11:24: Glucometer 119H Microbiology 11/19/19 C. difficile GDH Antigen & Toxins - Final, Complete 11/17/19 Gram Stain - Final, Complete 11/17/19 Sputum Culture - Final, Complete Usual upper respiratory alisa Pseudomonas aeruginosa 11/15/19 Blood Culture - Final, Complete No growth 11/15/19 Urine Culture - Final, Complete NO GROWTH Assessment/Plan Assessment/Plan Assessment & Plan Pneumonia- off antibiotics due to comfort care COPD Congestive heart failure Chronic pain Continue with comfort care, DO NOT RESUSCITATE Morphine prn for pain Family has been with her, not at bedside this am. Clinical Quality Measures DVT/VTE Risk/Contraindication: Risk Factor Score Per Nursin RFS Level Per Nursing on Admit: 4+=Very High DARCI MATIAS MD 11/23/19 4878: Subjective Subjective/Events-last exam Sister and Daughter present today. They would like to proceed with hospice. Patient is alert and oriented and agrees with discharge planning. Patient is comfortable and oxygen has been titrated down to 2L NC. Review of Systems Pulmonary: Dyspnea, Cough Cardiovascular: No: Chest Pain, Palpitations, Edema Gastrointestinal: No: Nausea, Vomiting, Abdominal Pain, Diarrhea, Constipation Neurological: Weakness Objective Exam General: Alert, Oriented X3, No Acute Distress, Other (Chronically ill) Lungs: Other (diminished breath sounds, normal work of breathing) Heart: Other (Tachycardia) Abdomen: Normal Bowel Sounds, Soft, No Tenderness Extremities: No Edema, Normal Pulses, No Tenderness/Swelling Skin: No Rashes, No Breakdown Neuro: Normal Speech, Sensation Intact, Cranial Nerves 3-12 NL Assessment/Plan Assessment/Plan (1) Acute and chronic respiratory failure with hypoxia Status: Acute Assessment & Plan: 11/23: Comfortable on 2L NC, plan for d/c to hospice in AM (2) COPD exacerbation Status: Acute (3) CHF (congestive heart failure) Status: Acute Qualifiers: Qualified Codes: I50.9 - Heart failure, unspecified (4) Pneumonia Status: Acute (5) Herpes zoster Status: Acute Assessment & Plan: 11/23: Continue Acyclovir (6) Cachexia Status: Acute (7) Poor prognosis Status: Acute Assessment & Plan: 11/23: Discussed d/c planning with family, they agree to proceed with hospice, DNR signed today for out of hosp Supervisory-Addendum Brief Verification & Attestation Participated in pt care: history Personally performed: exam Care discussed with: Medical Student Procedures: n/a Verification and Attestation of Medical Student E/M Service A medical student performed and documented this service in my presence. I reviewed and verified all information documented by the medical student and made modifications to such information, when appropriate. I personally performed the physical exam and medical decision making. Darci Matias, Nov 23, 2019,19:09 DESIRE CHEEK,MED STUDENT Nov 23, 2019 10:46 DARCI MATIAS MD Nov 23, 2019 19:08
--- NOTE | 2019-11-23 12:10 | Physical Therapy Daily Note ---
PT Daily Note-Current Subjective Patient is agreeable to therapy. Family is present and would like to learn how to assist in transferring her. Appearance Patient in recliner with nursing staff present to assist in toileting hygiene. Mental Status Attachments: Hsieh Catheter Transfers SCALE: Activities may be completed with or without assistive devices. 1-Mbtabxwxcp-cmspyat completes the activity by him/herself with no assistance from a helper. 5-Set-up or Clean-up Assistance-helper sets up or cleans up; patient completes activity. [place] assists only prior to or following the activity. 4-Supervision or Touching Assistance-helper provides verbal cues and/or touching/steadying and/or contact guard assistance as patient completes activity. Assistance may be provided throughout the activity or intermittently. 3-Partial/Moderate Assistance-helper does LESS THAN HALF the effort. [place] lifts, holds or supports trunk or limbs, but provides less than half the effort. 2-Substantial/Maximal Assistance-helper does MORE THAN HALF the effort. [place] lifts or holds trunk or limbs and provides more than half the effort. 9-Kmjgqnykr-jlytpz does ALL the effort. Patient does none of the effort to complete the activity. Or, the assistance of 2 or more helpers is required for the patient to complete the activity. If activity was not attempted, code reason: 7-Patient Refused. 9-Not Applicable-not attempted and the patient did not perform the activity before the current illness, exacerbation or injury. 10-Not Attempted due to Environmental Limitations-(lack of equipment, weather restraints, etc.). 88-Not Attempted due to Medical Conditions or Safety Concerns. Lying to Sitting/Side of Bed(Q: 3 Sit to Stand (QC): 3 Chair/Dmo-oj-Yzoem Xfer(QC): 3 Gait Training Does the Patient Walk?: No and Walking Goal NOT indicated Assessment Once patient was sitting up it was noted that patient had a bowel movement. P atient was upset about this and family decided to leave the room and they did not get educated on how to assist her with transfers. PT Short Term Goals Short Term Goals Time Frame: Nov 27, 2019 Roll Left & Right: 3 Sit to lyin Lying to sitting on side of be: 3 Sit to stand: 3 Chair/lty-wd-pkjqq transfer: 3 Toilet transfer: 3 Walk 10 feet: 3 Walk 50 feet with two turns: 3 PT Care Home Goals Care Home Goals PT Care Home Goals Time Frame: Dec 05, 2019 Roll Left & Right (QC): 5 Sit to Lying (QC): 5 Lying-Sitting on Side/Bed(QC): 5 Sit to Stand (QC): 5 Chair/Eff-sv-Pyyzl Xfer(QC): 5 Toilet Transfer (QC): 5 Does the Patient Walk: Yes Walk 10 feet (QC): 5 Walk 50ft with 2 Turns (QC): 5 PT Plan Problem List Problem List: Activity Tolerance, Functional Strength, Safety, Balance, Transfer, Bed Mobility, ROM Treatment/Plan Treatment Plan: Continue Plan of Care Treatment Plan: Bed Mobility, Education, Functional Activity Wilbert, Functional Strength, Gait, Safety, Therapeutic Exercise, Transfers Treatment Duration: Dec 05, 2019 Frequency: 5 times per week Estimated Hrs Per Day: .25 hour per day Patient and/or Family Agrees t: Yes Safety Risks/Education Patient Education: Transfer Techniques Teaching Recipient: Patient Teaching Methods: Discussion Response to Teaching: Reinforcement Needed Patient's family desire to learn how to assist patient in transfers. Time/GCodes Time In: 1150 Time Out: 1200 Total Billed Treatment Time: 10 Total Billed Treatment 1 visit FA (10 minutes) NIDA MYLES PT Nov 23, 2019 12:10
[2019-11-23] MEDS: morphine INJ 4 MG/ML 1 ML (VIAL/SYRINGE) IVP PRN (12:27)
[2019-11-23 20:00] VITALS: BP 134/64
[2019-11-24] MEDS: morphine INJ 4 MG/ML 1 ML (VIAL/SYRINGE) IVP PRN (07:49)
--- NOTE | 2019-11-24 07:50 | NUR ---
this RN spoke with neon sign worker doctor and RT regarding patients difficulty to breath and O2 @ 75-79%. RN was instructed to give morphine and add IV Ativan to the patients PRN list.
[2019-11-24 08:00] VITALS: BP 70/30
[2019-11-24] MEDS ORDERED: LORazepam INJ 2 MG/ML (ATIVAN) VIAL IVP PRN (08:00)
[2019-11-24] MEDS: RT-ALBUTEROL/IPRATROPIUM 3 ML (DUONEB) VIAL INH PRN (08:07)
--- NOTE | 2019-11-24 10:08 | NUR ---
of patient noted and confirm to be without respirations and heartbeat at 0920 by 2 RNs. TRINY Abebe notifying [facility] and awaiting [facility] confirmation. This RN notified Dr. Allen, Dr. Walker, [facility] and sister Apurva Caruso. Family is intending to come to the hospital this morning. home choice is yet unknown.
--- NOTE | 2019-11-24 11:16 | Discharge Summary ---
Diagnosis/Chief Complaint Date of Admission Nov 15, 2019 at 06:57 Date of Discharge 11/24/2019 Admission Diagnosis Admission Diagnosis See problem list Discharge Diagnosis See Below Problems/Diagnosis: (1) Acute and chronic respiratory failure with hypoxia Assessment & Plan: 11/23: Comfortable on 2L NC, plan for d/c to hospice in AM 11/24: Patient passed this AM comfortably Status: Acute (2) COPD exacerbation Status: Acute (3) CHF (congestive heart failure) Qualifiers: Qualified Codes: I50.9 - Heart failure, unspecified Status: Acute (4) Pneumonia Status: Acute (5) Herpes zoster Assessment & Plan: 11/23: Continue Acyclovir Status: Acute (6) Cachexia Status: Acute (7) Poor prognosis Assessment & Plan: 11/23: Discussed d/c planning with family, they agree to proceed with hospice, DNR signed today for out of hosp Status: Acute Discharge Summary-Simple/Stand Consultations Discharge Physical Examination Allergies: Coded Allergies: oxymorphone (Verified Allergy, Unknown, Pt takes Morphine ER at home, 09/02/19) varenicline (Verified Allergy, Unknown, 09/02/19) Uncoded Allergies: PEANUTS (Allergy, Unknown, 03/24/19) Vitals & I&Os Vital Sign - Last 12Hours Date Time Temp Pulse Resp B/P (MAP) Pulse Ox O2 Delivery O2 Flow Rate FiO2 11/24/19 08:11 83 High Flow N/C 4.00 11/24/19 08:00 36.3 144 24 70/30 (43) 11/21/19 10:52 100 Intake and Output 11/24/19 00:00 Intake Total 1780 ml Output Total 400 ml Balance 1380 ml Hospital Course See final discharge diagnosis. Discussion & Recommendations 69 yo F with multiple long admissions in the last few months with end stage COPD and Pseudomonas PNA with intubation during this admission. Patient was able to be extubated and was stable for several days. Family meeting yesterday with plan to d/c home with hospice today. Patient passed in room this AM comfortably Discharge Condition at discharge Instructions to patient/family Please see electronic discharge instructions given to patient. Discharge Medications Reviewed and agree with Discharge Medication list on patient's Discharge Instruction sheet Clinical Quality Measures DVT/VTE Risk/Contraindication: Risk Factor Score Per Nursin RFS Level Per Nursing on Admit: 4+=Very High Comfort Measures/ Type of Care: Comfort Measures Cardiopulmonary Arrest: Cardiorespiratory Arrest Date of : Nov 24, 2019 Time of : 09:20 Copy Copies To 1: CEASAR SNYDER MD, HOLLY R MD Nov 24, 2019 11:16
--- NOTE | 2019-11-24 11:28 | NUR ---
TOD visit: Notified by Jerrell Smiley of pt's and that no family were currently present, but being contacted. I reported to the floor and was present when family arrived. Facilitated healing storytelling and offered prayer. Pt's family said they would contact [facility] and expressed appreciation for chaplains who visited.
--- NOTE | 2019-11-24 13:23 | NUR ---
Patient's body released to [facility]
== END 2019-11-24 13:20 | disposition expired | DRG 207 ==
LOC: EDUNIT# 05:37 → ER 05:38 → ICU 06:57 → 4TH 11-20 09:54
PROVIDERS: ADMIT Internal Medicine; ATTEND Internal Medicine
PROC: 5A1955Z Respiratory Ventilation, Greater than 96 Consecutive Hours (ICD-10-PCS; principal; 2019-11-15)
PROC: 0BH17EZ Insertion of Endotracheal Airway into Trachea, Via Natural or Artificial Opening (ICD-10-PCS; 2019-11-15)
DX: J96.22 Acute and chronic respiratory failure with hypercapnia (principal); J96.21 Acute and chronic respiratory failure with hypoxia; J15.1 Pneumonia due to Pseudomonas; I21.4 Non-ST elevation (NSTEMI) myocardial infarction; I11.0 Hypertensive heart disease with heart failure; I50.31 Acute diastolic (congestive) heart failure; E87.2 Acidosis; Z66 Do not resuscitate; Z51.5 Encounter for palliative care; J43.9 Emphysema, unspecified; I95.81 Postprocedural hypotension; B02.9 Zoster without complications; I25.119 Atherosclerotic heart disease of native coronary artery with unspecified angina pectoris; E46 Unspecified protein-calorie malnutrition; R64 Cachexia; E87.1 Hypo-osmolality and hyponatremia; R32 Unspecified urinary incontinence; F11.10 Opioid abuse, uncomplicated; F13.10 Sedative, hypnotic or anxiolytic abuse, uncomplicated; E87.6 Hypokalemia; E83.42 Hypomagnesemia; E78.00 Pure hypercholesterolemia, unspecified; I38 Endocarditis, valve unspecified; G62.9 Polyneuropathy, unspecified; K21.9 Gastro-esophageal reflux disease without esophagitis; F41.0 Panic disorder [episodic paroxysmal anxiety]; F43.10 Post-traumatic stress disorder, unspecified; F31.9 Bipolar disorder, unspecified; F17.210 Nicotine dependence, cigarettes, uncomplicated; Z99.81 Dependence on supplemental oxygen
CPT/HCPCS: 36415; 36600; 51702; 71045; 80048; 80053; 80306; 80320; 80329; 81000; 82150; 82550; 82553; 82805; 82962; 83605; 83690; 83735; 83874; 83880; 84100; 84145; 84478; 84484; 85007; 85025; 85027; 85610; 85730; 87040; 87070; 87077; 87081; 87088; 87186; 87205; 87324; 87449; 87804; 93005; 93041; 94002; 94003; 94640; 94660; 94664; 94760; 94799; 96365; 96375